=== PATIENT | male | born 1950 | race Caucasian/White ===

== ENCOUNTER → 2017-03-07 | Outpatient (CLI) | payer MEDICARE, BC ==
[2017-03-07 08:03] LABS: Non-African American GFR(MDRD) >60 (>60 ml/min/1.73 sqM)
== END | disposition home or self-care (01) ==
LOC: LABWHC1 07:09
PROVIDERS: ATTEND Internal Medicine
DX: Z01.812 Encounter for preprocedural laboratory examination (principal); M54.5 Low back pain
CPT/HCPCS: 36415; 82565

== ENCOUNTER → 2017-03-10 | Outpatient (CLI) | payer MEDICARE, BC ==
--- NOTE | 2017-03-10 09:24 | MR ---
EXAMINATION TYPE: MR lumbar spine wo/w con DATE OF EXAM: 03/10/2017 COMPARISON: Prior MRI lumbar spine May 13, 2014 HISTORY: Low back pain per order. Back pain for a long time causing pain into bilateral buttocks and left calf per patient. History of prior surgery November 21, 2014 per patient. TECHNIQUE: Multiplanar, multisequence images of the lumbar spine is performed without and with IV contrast, util izing 20 mL intravenous MultiHance FINDINGS: Sagittal images of the lumbar spine show vertebral body heights and alignment to appear sat isfactory. There is redemonstration of artifact from extensive multilevel surgical change with clockmaker ior fusion hardware noted L2-L5 levels. Multilevel laminectomy defects and spinous process resection is present. There is additional vertebral fusion hardware L3 and L4 levels. There is artifact from di sc material L2-L3, L3-L4, and L4-L5 levels now present. Vertebral body heights and disc space heights above and below surgical levels are felt maintained. Small posterior disc herniations are seen at L 1-L2 and L5-S1 levels on current study. The conus medullaris remains normal in position and signal en ding at T12-L1 disc space level. There is marked heterogeneity of bone marrow signal intensity is freda gical levels. No suspicious postcontrast enhancement is seen. There is fairly moderate anterior spurr ing at surgical levels redemonstrated. Axial images show the T12-L1 level to remain within normal limits. Axial images at the L1-L2 level show artifact from surgical change. There is persistent moderate broa d disc bulge effacing anterior thecal sac. There is asymmetric mild left greater than right neural fo raminal narrowing redemonstrated. No significant change from prior study is seen. Less artifact is no jaime. Axial images at L2-L3, L3-L4, and L4-L5 level show extensive artifact from surgical change. Spinal ca nal is distorted but likely preserved. Bilateral neural foramina are felt patent though there is connor fact degradation present. Axial images at L5-S1 level show artifact from surgical change. There is small central disc protrusio n but spinal canal is preserved. Bilateral neural foramina are felt patent. There is redemonstration of 1.4 cm T1 hyperintense T2 hypointense exophytic round lesion upper pole l evel left kidney up to reflect proteinaceous cyst on axial image 32. IMPRESSION: Suboptimal study due to marked artifact from extensive surgical change. There is satisfac tory alignment redemonstrated. There are some mild degenerative changes L1-L2 and L5-S1 levels redemo nstrated. No significant or suspicious new findings are seen.
== END | disposition home or self-care (01) ==
LOC: RADMRIMAIN 06:34
PROVIDERS: ATTEND Internal Medicine
DX: M47.817 Spondylosis without myelopathy or radiculopathy, lumbosacral region (principal); Z98.890 Other specified postprocedural states
CPT/HCPCS: 72158; A9577

== ENCOUNTER → 2018-03-12 | Outpatient (CLI) | payer MEDICARE, BC ==
[2018-03-12 11:27] LABS: Basophils # (A) 0.1 k/uL (0-0.2); Basophils % (A) 1 %; Eosinophils # (A) 0.2 k/uL (0-0.7); Eosinophils % (A) 2 %; HGB 13.6 gm/dL (13.0-17.5); Lymphocytes % (A) 22 %; MCH 31.5 pg (25.0-35.0); MCHC 32.4 g/dL (31.0-37.0); MCV 97.4 fL (80.0-100.0); Mean Platelet Volume 7.7; Monocytes # (A) 0.6 k/uL (0-1.0); Monocytes % (A) 6 %; Neutrophils # (A) 6.2 k/uL (1.3-7.7); Neutrophils % (A) 66 %; Platelet Count 235 k/uL (150-450); RBC 4.32 m/uL (4.30-5.90); RDW 12.9 % (11.5-15.5); WBC 8.6 k/uL (3.8-10.6)
== END | disposition home or self-care (01) ==
LOC: LABWHC1 09:18
PROVIDERS: ATTEND Psychiatry & Neurology Pain Medicine
DX: S31.109A Unspecified open wound of abdominal wall, unspecified quadrant without penetration into peritoneal cavity, initial encounter (principal)
CPT/HCPCS: 36415; 85025; 87070; 87205

== ENCOUNTER → 2018-04-01 | Outpatient (CLI) | payer MEDICARE, BC ==
[2018-04-01 08:34] LABS: Basophils # (A) 0.1 k/uL (0-0.2); Basophils % (A) 1 %; Eosinophils # (A) 0.2 k/uL (0-0.7); Eosinophils % (A) 3 %; HCT 41.7 % (39.0-53.0); HGB 13.1 gm/dL (13.0-17.5); Hypochromasia Slight; Lymphocytes # (A) 1.7 k/uL (1.0-4.8); Lymphocytes % (A) 24 %; MCHC 31.5 g/dL (31.0-37.0); MCV 101.8 fL (80.0-100.0); Macrocytosis Slight; Mean Platelet Volume 6.7; Monocytes # (A) 0.5 k/uL (0-1.0); Monocytes % (A) 7 %; Neutrophils # (A) 4.6 k/uL (1.3-7.7); Neutrophils % (A) 63 %; Platelet Count 183 k/uL (150-450); RDW 12.7 % (11.5-15.5); WBC 7.3 k/uL (3.8-10.6)
== END | disposition home or self-care (01) ==
LOC: LABWHC1 07:43
PROVIDERS: ATTEND Psychiatry & Neurology Pain Medicine
DX: S31.109A Unspecified open wound of abdominal wall, unspecified quadrant without penetration into peritoneal cavity, initial encounter (principal)
CPT/HCPCS: 36415; 85025

== ENCOUNTER 2018-05-19 08:29 | Inpatient (IN) | payer MEDICARE, BC ==
--- NOTE | 2018-05-19 09:27 | ED ---
General Adult HPI - General Chief complaint: Shortness of Breath Stated complaint: chest pain,cough Source: patient Mode of arrival: wheelchair Limitations: no limitations - History of Present Illness Initial comments: Dictation was produced using blogfoster dictation software. please excuse any grammatical, word or spelling errors. Chief Complaint: 67-year-old male past medical history coronary artery disease, COPD, CVA presents with difficulty in breathing. History of Present Illness: Patient is 67-year-old male with past medical history of COPD. Patient continues to smoke cigarettes. He is told that he should come to the emergency department to be admitted. Says primary care physician's office 1 cm hypoxic and febrile. Patient states he's been feeling sick for about a week. Patient reports coughing. Feels more short of breath than usual. Since that he's been producing more sputum. Patient also feeling more malaise recently. No nausea vomiting, no abdominal pain. The ROS documented in this emergency department record has been reviewed and confirmed by me. Those systems with pertinent positive or negative responses have been documented in the HPI. All other systems are other negative and/or noncontributory. - Related Data Home Medications Medication Instructions Recorded Confirmed Albuterol Sulfate [Proventil Hfa] 2 puff INHALATION RT-Q6H PRN 12/01/15 05/19/18 Atenolol [Tenormin] 50 mg PO BID 12/01/15 05/19/18 Budesonide-Formot 160-4.5 Mcg 2 puff INHALATION RT-BID PRN 12/01/15 05/19/18 [Symbicort 160-4.5 Mcg Inhaler] HYDROcodone/APAP 10-325MG [[place] 1 tab PO Q6H PRN 12/01/15 05/19/18 10-325] amLODIPine [Norvasc] 5 mg PO DAILY 12/01/15 05/19/18 Albuterol Nebulized [Ventolin 2.5 mg INHALATION RT-Q6H 06/25/16 05/19/18 Nebulized] Niacin 500 mg PO DAILY 06/25/16 05/19/18 Omeprazole [PriLOSEC] 20 mg PO BID 06/25/16 05/19/18 Cyclobenzaprine [Flexeril] 10 mg PO TID 05/19/18 05/19/18 Gabapentin [Neurontin] 400 mg PO QID 05/19/18 05/19/18 Multivitamins, Thera [Multivitamin 1 tab PO DAILY 05/19/18 05/19/18 (formulary)] Naproxen 500 mg PO BID PRN 05/19/18 05/19/18 Simvastatin [Zocor] 40 mg PO HS 05/19/18 05/19/18 Tamsulosin HCl [Flomax] 0.4 mg PO HS 05/19/18 05/19/18 Previous Rx's Medication Instructions Recorded Ipratropium Nebulized [Atrovent 0.5 mg INHALATION RT-Q6H #0 06/26/16 Nebulized] Allergies Allergy/AdvReac Type Severity Reaction Status Date / Time montelukast sodium Allergy Itching Verified 05/19/18 09:14 [From [facility]] Review of Systems ROS Statement: Those systems with pertinent positive or pertinent negative responses have been documented in the HPI. ROS Other: All systems not noted in ROS Statement are negative. 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 History of Any Multi-Drug Resistant Organisms: None Reported Past Surgical History: Adenoidectomy, Back Surgery, Heart Catheterization, Hernia Repair, Joint Replacement, Orthopedic Surgery, Tonsillectomy Additional Past Surgical History / Comment(s): L knee replacement, back surgery x2-failed fusion and 2 rods in lower back, L/R cataract surgery, bilat. rib removal (cervical), carpal tunnel R wrist, colonoscopy, L elbow surgery, abdominal hernia repair, 3 R inguinal hernia repairs, L inguinal hernia repair, rectal cystectomy. Past Anesthesia/Blood Transfusion Reactions: Previous Problems w/ Anesthesia Additional Past Anesthesia/Blood Transfusion Reaction / Comment(s): With first surgery became belligerent when waking up. Past Psychological History: No Psychological Hx Reported Smoking Status: Current every day smoker Past Alcohol Use History: Rare Past Drug Use History: None Reported - Past Family History Mother Family Medical History: No Reported History Additional Family Medical History / Comment(s): Mother was healthy and lived to be 88 or 89yrs old. Father Family Medical History: Cancer Additional Family Medical History / Comment(s): Father of lung cancer in his early 70's. General Exam - General Exam Comments Initial Comments: PHYSICAL EXAM: General Impression: Alert and oriented x3, dyspneic, HEENT: Normocephalic atraumatic, extra-ocular movements intact, pupils equal and reactive to light bilaterally, mucous membranes moist. Cardiovascular: Heart regular rate and rhythm, S1&S2 audible, no murmurs, rubs or gallops Chest: Bilateral lung wheezing Abdomen: Bowel sounds present, abdomen soft, non-tender, non-distended, no organomegaly Musculoskeletal: Pulses present and equal in all extremities, no peripheral edema Motor: Power 5/5 bilaterally, no focal deficits noted Neurological: CN II-XII grossly intact, no focal motor or sensory deficits noted Skin: Intact with no visualized rashes Psych: Normal affect and mood Limitations: no limitations Course Vital Signs 05/19/18 05/19/18 05/19/18 08:39 09:17 09:33 Temperature 98.6 F Pulse Rate 70 Respiratory 20 25 H Rate Blood Pressure 104/51 O2 Sat by Pulse 80 L 88 L Oximetry 05/19/18 05/19/18 05/19/18 10:00 11:00 11:46 Temperature Pulse Rate 67 62 70 Respiratory Rate Blood Pressure 98/49 98/49 O2 Sat by Pulse 91 L 84 L Oximetry 05/19/18 11:57 Temperature Pulse Rate 70 Respiratory Rate Blood Pressure O2 Sat by Pulse Oximetry Medical Decision Making - Medical Decision Making ED course: 77-year-old male with past medical history of COPD presents with instruction from primary care physician to come to the emergency Department for hypoxia and possible lung infection. As upon arrival shows oxygen of 80% on room air. Rest of vital signs within normal limits. Patient doesn't have any lower extremity symptoms. Low clinical suspicion of pulmonary embolus at this time.Laboratory evaluation obtained per it CBC unremarkable, coag panel unremarkable. Metabolic panel is negative. Cardiac enzymes are negative. X-ray was obtained showing COPD with venous congestion versus interstitial pneumonitis. Clinical presentation more suggestive of COPD exacerbation secondary to pulmonary infection. Patient be admitted for COPD exacerbation is given breathing treatment, corticosteroids and antibiotics. Patient be admitted to the hospital for hypoxic respiratory failure. EKG Interpretation: A 12 lead EKG was obtained. It was interpreted by myself and attending physician. There is a P wave before every QRS complex. Rate is 67. Rhythm is normal sinus rhythm, SC interval 170, QRS 100, QTC 433. QT is not prolonged. No ST segment depression or elevation. Overall, this EKG is unremarkable - Lab Data Result diagrams: 05/19/18 09:11 05/19/18 09:11 Lab Results 05/19/18 05/19/18 05/19/18 Range/Units 09:11 09:11 09:11 WBC 4.8 (3.8-10.6) k/uL RBC 4.49 (4.30-5.90) m/uL Hgb 13.8 (13.0-17.5) gm/dL Hct 43.1 (39.0-53.0) % MCV 96.0 D (80.0-100.0) fL MCH 30.7 (25.0-35.0) pg MCHC 32.0 (31.0-37.0) g/dL RDW 13.2 (11.5-15.5) % Plt Count 142 L (150-450) k/uL Neutrophils % 78 % Lymphocytes % 12 % Monocytes % 7 % Eosinophils % 1 % Basophils % 1 % Neutrophils # 3.8 (1.3-7.7) k/uL Lymphocytes # 0.6 L (1.0-4.8) k/uL Monocytes # 0.3 (0-1.0) k/uL Eosinophils # 0.0 (0-0.7) k/uL Basophils # 0.0 (0-0.2) k/uL PT (9.0-12.0) sec INR (<1.2) APTT (22.0-30.0) sec Sodium 134 L (137-145) mmol/L Potassium 4.6 (3.5-5.1) mmol/L Chloride 96 L (98-107) mmol/L Carbon Dioxide 28 (22-30) mmol/L Anion Gap 10 mmol/L BUN 14 (9-20) mg/dL Creatinine 0.90 (0.66-1.25) mg/dL Est GFR (CKD-EPI)AfAm >90 (>60 ml/min/1.73 sqM) Est GFR (CKD-EPI)NonAf 87 (>60 ml/min/1.73 sqM) Glucose 90 (74-99) mg/dL Calcium 9.0 (8.4-10.2) mg/dL Magnesium 1.9 (1.6-2.3) mg/dL Total Bilirubin 0.5 (0.2-1.3) mg/dL AST 46 (17-59) U/L ALT 21 (21-72) U/L Alkaline Phosphatase 80 (38-126) U/L Total Creatine Kinase 129 (55-170) U/L CK-MB (CK-2) 1.5 (0.0-2.4) ng/mL CK-MB (CK-2) Rel Index 1.2 Troponin I <0.012 (0.000-0.034) ng/mL NT-Pro-B Natriuret Pep pg/mL Total Protein 6.6 (6.3-8.2) g/dL Albumin 3.5 (3.5-5.0) g/dL 05/19/18 05/19/18 Range/Units 09:11 09:11 WBC (3.8-10.6) k/uL RBC (4.30-5.90) m/uL Hgb (13.0-17.5) gm/dL Hct (39.0-53.0) % MCV (80.0-100.0) fL MCH (25.0-35.0) pg MCHC (31.0-37.0) g/dL RDW (11.5-15.5) % Plt Count (150-450) k/uL Neutrophils % % Lymphocytes % % Monocytes % % Eosinophils % % Basophils % % Neutrophils # (1.3-7.7) k/uL Lymphocytes # (1.0-4.8) k/uL Monocytes # (0-1.0) k/uL Eosinophils # (0-0.7) k/uL Basophils # (0-0.2) k/uL PT 10.1 (9.0-12.0) sec INR 1.0 (<1.2) APTT 27.6 (22.0-30.0) sec Sodium (137-145) mmol/L Potassium (3.5-5.1) mmol/L Chloride (98-107) mmol/L Carbon Dioxide (22-30) mmol/L Anion Gap mmol/L BUN (9-20) mg/dL Creatinine (0.66-1.25) mg/dL Est GFR (CKD-EPI)AfAm (>60 ml/min/1.73 sqM) Est GFR (CKD-EPI)NonAf (>60 ml/min/1.73 sqM) Glucose (74-99) mg/dL Calcium (8.4-10.2) mg/dL Magnesium (1.6-2.3) mg/dL Total Bilirubin (0.2-1.3) mg/dL AST (17-59) U/L ALT (21-72) U/L Alkaline Phosphatase (38-126) U/L Total Creatine Kinase (55-170) U/L CK-MB (CK-2) (0.0-2.4) ng/mL CK-MB (CK-2) Rel Index Troponin I (0.000-0.034) ng/mL NT-Pro-B Natriuret Pep 537 pg/mL Total Protein (6.3-8.2) g/dL Albumin (3.5-5.0) g/dL Disposition Clinical Impression: COPD exacerbation, Hypoxia Disposition: ADMITTED IP TO THIS HOSP Condition: Fair Referrals: David Suazo MD [Primary Care Provider] - 1-2 days Decision Time: 12:46
[2018-05-19] MEDS ORDERED: IPRATROPIUM 0.5 MG/2.5 ML NEBU INHALATION STA (09:28)
[2018-05-19] MEDS ORDERED: ALBUTEROL NEBULIZED 2.5 MG/3 ML INHALATION STA ×2 (09:28→11:45)
[2018-05-19] MEDS ORDERED: methylPREDNISolone SOD SUCCI 125 MG/2 ML VIAL IV STA (09:28)
[2018-05-19] MEDS ORDERED: AZITHROMYCIN 500 MG in SODIUM CHLORIDE 0.9% 250 ML IVPB STA (09:28)
[2018-05-19 09:50] LABS: Basophils % (A) 1 %; Eosinophils % (A) 1 %; HCT 43.1 % (39.0-53.0); HGB 13.8 gm/dL (13.0-17.5); Lymphocytes # (A) 0.6 k/uL (1.0-4.8); Lymphocytes % (A) 12 %; MCH 30.7 pg (25.0-35.0); Mean Platelet Volume 7.7; Monocytes # (A) 0.3 k/uL (0-1.0); Monocytes % (A) 7 %; Neutrophils # (A) 3.8 k/uL (1.3-7.7); Neutrophils % (A) 78 %; Platelet Count 142 k/uL (150-450); RBC 4.49 m/uL (4.30-5.90); RDW 13.2 % (11.5-15.5); WBC 4.8 k/uL (3.8-10.6)
[2018-05-19 09:58] LABS: Partial Thromboplastin Time 27.6 sec (22.0-30.0); Prothrombin Time 10.1 sec (9.0-12.0)
[2018-05-19 10:15] LABS: ALT 21 U/L (21-72); AST 46 U/L (17-59); Albumin 3.5 g/dL (3.5-5.0); Alkaline Phosphatase 80 U/L (38-126); Anion Gap 10 mmol/L; Blood Urea Nitrogen 14 mg/dL (9-20); Carbon Dioxide 28 mmol/L (22-30); Chloride 96 mmol/L (98-107); Glucose 90 mg/dL (74-99); Magnesium 1.9 mg/dL (1.6-2.3); Sodium 134 mmol/L (137-145); Total Bilirubin 0.5 mg/dL (0.2-1.3); Total Protein 6.6 g/dL (6.3-8.2)
[2018-05-19 10:16] LABS: Creatine Kinase 129 U/L (55-170)
[2018-05-19 10:30] LABS: Creatine Kinase MB 1.5 ng/mL (0.0-2.4); Troponin I <0.012 ng/mL (0.000-0.034)
[2018-05-19 10:43] LABS: Potassium 4.6 mmol/L (3.5-5.1)
--- NOTE | 2018-05-19 12:25 | XR ---
EXAMINATION TYPE: XR chest 2V DATE OF EXAM: 05/19/2018 COMPARISON: 06/25/2016 TECHNIQUE: PA and lateral views submitted. HISTORY: Difficulty breathing FINDINGS: The lungs are clear and there is no pneumothorax, pleural effusion, or focal pneumonia. Diffuse int erstitial pattern seen. There does appear to be a vague nodule measuring 1 cm in the left upper lobe. Biapical pleural thickening. Heart is enlarged and there is atherosclerotic change of the aorta. Hyp erinflation suggests COPD. Hypertrophic and degenerative change of the spine. IMPRESSION: 1. COPD with increased interstitium correlate for developing venous congestion or interstitial pneumo nitis. 2. There is a 1 cm nodule left upper lobe. CT chest recommended.
[2018-05-19] MEDS ORDERED: IPRATROPIUM-ALBUTEROL 3 ML NEB INHALATION PRN (12:47)
[2018-05-19] MEDS ORDERED: CYCLOBENZAPRINE 10 MG TAB PO PRN (13:17)
[2018-05-19] MEDS ORDERED: SYMBICORT 160-4.5 MCG INHALER INHALATION PRN (13:17)
[2018-05-19] MEDS ORDERED: ACETAMINOPHEN TAB 325 MG TAB PO PRN (13:18)
[2018-05-19] MEDS ORDERED: ONDANSETRON 4 MG/2 ML VIAL IVP PRN (13:18)
--- NOTE | 2018-05-19 14:07 | P.HPIM ---
History of Present Illness H&P Date: 05/19/18 Chief Complaint: Shortness of breath This is a 67-year-old male with past medical history noted below significant for underlying COPD and who is a current smoker that presented to the emergency room with worsening shortness of breath. Patient said that for the past 1 week he has been more short of breath. This was associated with some wheezing that did not resolve by using his inhalers at home. Patient said that initially he was having a lot of cough that was productive of clear and yellow sputum. He said that the cough is nonproductive. He was evaluated by his PCP in the office today and was sent to the emergency room. Patient was found to have an oxygen saturation level of 80% on room air. Patient said that he was never on home oxygen before. He was evaluated in the emergency room chest x-ray showed evidence of underlying COPD with a 1 cm nodule in the left upper lobe. Patient is currently awake and alert. He said that his shortness of breath has improved since presentation to the emergency room. Patient was treated with bronchodilators and steroids and is currently being admitted to the hospital for further evaluation. Patient himself denies any chest pain or dizziness. Review of Systems Review of system: 14 points review of systems were obtained and were negative except to what were mentioned in the HPI. 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 History of Any Multi-Drug Resistant Organisms: None Reported Past Surgical History: Adenoidectomy, Back Surgery, Heart Catheterization, Hernia Repair, Joint Replacement, Orthopedic Surgery, Tonsillectomy Additional Past Surgical History / Comment(s): L knee replacement, back surgery x2-failed fusion and 2 rods in lower back, L/R cataract surgery, bilat. rib removal (cervical), carpal tunnel R wrist, colonoscopy, L elbow surgery, abdominal hernia repair, 3 R inguinal hernia repairs, L inguinal hernia repair, rectal cystectomy. Past Anesthesia/Blood Transfusion Reactions: Previous Problems w/ Anesthesia Additional Past Anesthesia/Blood Transfusion Reaction / Comment(s): With first surgery became belligerent when waking up. Past Psychological History: No Psychological Hx Reported Smoking Status: Current every day smoker Past Alcohol Use History: Rare Past Drug Use History: None Reported - Past Family History Mother Family Medical History: No Reported History Additional Family Medical History / Comment(s): Mother was healthy and lived to be 88 or 89yrs old. Father Family Medical History: Cancer Additional Family Medical History / Comment(s): Father of lung cancer in his early 70's. Medications and Allergies Home Medications Medication Instructions Recorded Confirmed Type Albuterol Sulfate [Proventil Hfa] 2 puff INHALATION RT-Q6H PRN 12/01/15 History Atenolol [Tenormin] 50 mg PO BID 12/01/15 05/19/18 History Budesonide-Formot 160-4.5 Mcg 2 puff INHALATION RT-BID PRN 12/01/15 05/19/18 History [Symbicort 160-4.5 Mcg Inhaler] HYDROcodone/APAP 10-325MG [[place] 1 tab PO Q6H PRN 12/01/15 05/19/18 History 10-325] amLODIPine [Norvasc] 5 mg PO DAILY 12/01/15 05/19/18 History Albuterol Nebulized [Ventolin 2.5 mg INHALATION RT-Q6H 06/25/16 05/19/18 History Nebulized] Niacin 500 mg PO DAILY 06/25/16 05/19/18 History Omeprazole [PriLOSEC] 20 mg PO BID 06/25/16 05/19/18 History Ipratropium Nebulized [Atrovent 0.5 mg INHALATION RT-Q6H #0 06/26/16 05/19/18 Rx Nebulized] Cyclobenzaprine [Flexeril] 10 mg PO TID 05/19/18 05/19/18 History Gabapentin [Neurontin] 400 mg PO QID 05/19/18 05/19/18 History Multivitamins, Thera [Multivitamin 1 tab PO DAILY 05/19/18 05/19/18 History (formulary)] Naproxen 500 mg PO BID PRN 05/19/18 05/19/18 History Simvastatin [Zocor] 40 mg PO HS 05/19/18 05/19/18 History Tamsulosin HCl [Flomax] 0.4 mg PO HS 05/19/18 05/19/18 History Allergies Allergy/AdvReac Type Severity Reaction Status Date / Time montelukast sodium Allergy Itching Verified 05/19/18 09:14 [From [facility]] Physical Exam Vitals: Vital Signs Temp Pulse Resp BP Pulse Ox 05/19/18 14:00 120/51 88 L 05/19/18 13:00 116/57 05/19/18 12:00 68 118/59 84 L 05/19/18 11:57 70 05/19/18 11:46 70 05/19/18 11:00 62 98/49 84 L 05/19/18 10:00 67 98/49 91 L 05/19/18 09:33 25 H 05/19/18 09:17 88 L 05/19/18 08:39 98.6 F 70 20 104/51 80 L Intake and Output 05/18/18 05/19/18 05/19/18 22:59 06:59 14:59 Other: Weight 93.894 kg General: The patient is awake and alert, in no distress Eye: there is normal conjunctiva bilaterally. Neck: The neck is supple, there is no JVD. Cardiovascular: Normal S1-S2, no S3-S4, no murmurs. Respiratory: Lungs are diminished with mild end expiratory wheezing Gastrointestinal: Abdomen is soft, nontender, slightly distended Musculoskeletal: There is no pedal edema. Neurological:. Speech is normal. Skin: Skin is warm and dry Results CBC & Chem 7: 05/19/18 09:11 05/19/18 09:11 Labs: Abnormal Lab Results - Last 24 Hours (Table) 05/19/18 05/19/18 Range/Units 09:11 09:11 Plt Count 142 L (150-450) k/uL Lymphocytes # 0.6 L (1.0-4.8) k/uL Sodium 134 L (137-145) mmol/L Chloride 96 L (98-107) mmol/L Assessment and Plan Assessment: 1. Acute COPD exacerbation 2. 1 cm nodule in the left upper lobe of the lung 3. Acute bacterial bronchitis 4. Acute hypoxic respiratory failure 5. Essential hypertension 6. Hyperlipidemia 7. History of back surgery with chronic back pain 8. Tobacco abuse, counseled to quit. Today, I reviewed his medication list and lab work results. We will continue prednisone 40 mg daily. Continue bronchodilators around the clock and when necessary. Azithromycin 500 mg daily for 5 days. I would consult pulmonology for further evaluation. I will order incentive spirometer at bedside. Subcu heparin for DVT prophylaxis. Patient was updated about his current condition. All of his questions answered to his satisfaction.
[2018-05-19] MEDS: IPRATROPIUM-ALBUTEROL 3 ML NEB INHALATION SCH (16:19)
[2018-05-19] MEDS: GABAPENTIN 400 MG CAP PO SCH ×2 (18:22→20:36)
[2018-05-19] MEDS: PANTOPRAZOLE 40 MG TABLET PO SCH (18:22)
[2018-05-19] MEDS: HYDROcodone/APAP 10-325MG 1 EACH TAB PO PRN (19:34)
[2018-05-19] MEDS: TAMSULOSIN 0.4 MG CAP.ER.24H PO SCH (20:36)
[2018-05-19] MEDS: ATORVASTATIN 20 MG TAB PO SCH (20:36)
[2018-05-19] MEDS: ATENOLOL 50 MG TAB PO SCH (20:36)
[2018-05-19] MEDS: HEPARIN SODIUM,PORCINE 5,000 UNIT/ML 1 ML VIAL SQ SCH ×2 (20:36→20:38)
[2018-05-19] MEDS: SODIUM CHLORIDE 0.9% 1,000 ML IV SCH (20:39)
[2018-05-20] MEDS: IPRATROPIUM-ALBUTEROL 3 ML NEB INHALATION SCH ×5 (00:17→21:09)
[2018-05-20] MEDS: HYDROcodone/APAP 10-325MG 1 EACH TAB PO PRN ×3 (05:17→21:00)
[2018-05-20] MEDS ORDERED: predniSONE 20 MG TAB PO SCH (09:00)
[2018-05-20] MEDS: HEPARIN SODIUM,PORCINE 5,000 UNIT/ML 1 ML VIAL SQ SCH ×2 (09:10→21:00)
[2018-05-20] MEDS: GABAPENTIN 400 MG CAP PO SCH ×4 (09:10→21:00)
[2018-05-20] MEDS: PANTOPRAZOLE 40 MG TABLET PO SCH ×2 (09:10→17:54)
[2018-05-20] MEDS: ATENOLOL 50 MG TAB PO SCH ×2 (09:10→21:00)
[2018-05-20] MEDS: amLODIPine 5 MG TAB PO SCH (09:10)
[2018-05-20] MEDS: AZITHROMYCIN 500 MG TAB PO SCH (09:10)
--- NOTE | 2018-05-20 09:27 | P.PN ---
Subjective Progress Note Date: 05/20/18 Principal diagnosis: COPD exacerbation Patient is feeling slightly better today. His shortness of breath is improving. He is concerned as he was supposed to follow up with the wound care clinic today regarding chronic wound involving the left lower abdomen where the incision site for the morphine pump was done. Patient said that he received multiple antibiotic courses over the past 3 months. This was managed by his neurologist. He was referred to the wound care clinic and was supposed to have his first appointment today. Objective - Vital Signs Vital signs: Vital Signs Temp 97.4 F L 05/20/18 07:00 Pulse 64 05/20/18 09:04 Resp 17 05/20/18 07:00 BP 115/47 05/20/18 07:00 Pulse Ox 95 05/20/18 07:00 Intake & Output 05/19/18 05/20/18 05/20/18 18:59 06:59 18:59 Intake Total 400 Balance 400 Weight 93.894 kg 93.894 kg Intake: IV 40 0.9 @ 40 40 Intake, IV Titration 360 Amount Sodium Chloride 0.9% 1, 360 000 ml @ 40 mls/hr IV . Q24H [facility] Rx#:[id number] Other: # Voids 3 - Exam General: The patient is awake and alert, in no distress Eye: there is normal conjunctiva bilaterally. Neck: The neck is supple, there is no JVD. Cardiovascular: Normal S1-S2, no S3-S4, no murmurs. Respiratory: Lungs clear to auscultation bilaterally Gastrointestinal: Abdomen is soft, nontender. Morphine pump noted in the left lower abdomen with the incision site and surrounding erythema. There is no drainage or pus noted. There is no tenderness over the pump. Musculoskeletal: There is no pedal edema. Neurological:. Speech is normal. Skin: Skin is warm and dry - Labs CBC & Chem 7: 05/19/18 09:11 05/19/18 09:11 Labs: Abnormal Lab Results - Last 24 Hours (Table) 05/19/18 05/19/18 Range/Units 09:11 09:11 Plt Count 142 L (150-450) k/uL Lymphocytes # 0.6 L (1.0-4.8) k/uL Sodium 134 L (137-145) mmol/L Chloride 96 L (98-107) mmol/L Assessment and Plan Assessment: 1. Acute COPD exacerbation 2. 1 cm nodule in the left upper lobe of the lung: May consider further evaluation with computed tomography scan awaiting pulmonology recommendations 3. Acute bacterial bronchitis 4. Acute hypoxic respiratory failure 5. Essential hypertension 6. Hyperlipidemia 7. History of back surgery with chronic back pain 8. Tobacco abuse, counseled to quit. 9. Chronic wound of the left lower abdomen at the morphine pump incision sites. I would consult Dr. Saldana for further evaluation as patient was supposed to be seen in the wound care clinic today. Today, I reviewed his medication list and lab work results. We will continue prednisone 40 mg daily. Continue bronchodilators around the clock and when necessary. Azithromycin 500 mg daily for 5 days. Appreciate training consultant's recommendations. I will order incentive spirometer at bedside. Subcu heparin for DVT prophylaxis. Patient was updated about his current condition. All of his questions answered to his satisfaction.
[2018-05-20 10:07] LABS: Basophils % (A) 0 %; Eosinophils % (A) 0 %; HGB 13.9 gm/dL (13.0-17.5); Hypochromasia Slight; Lymphocytes # (A) 0.5 k/uL (1.0-4.8); Lymphocytes % (A) 9 %; MCH 30.4 pg (25.0-35.0); MCHC 30.9 g/dL (31.0-37.0); MCV 98.4 fL (80.0-100.0); Mean Platelet Volume 6.9; Monocytes # (A) 0.3 k/uL (0-1.0); Monocytes % (A) 5 %; Neutrophils # (A) 4.3 k/uL (1.3-7.7); Neutrophils % (A) 84 %; Platelet Count 146 k/uL (150-450); RBC 4.57 m/uL (4.30-5.90); WBC 5.1 k/uL (3.8-10.6)
[2018-05-20 10:39] LABS: Anion Gap 9 mmol/L; Blood Urea Nitrogen 16 mg/dL (9-20); Calcium 9.1 mg/dL (8.4-10.2); Carbon Dioxide 30 mmol/L (22-30); Chloride 98 mmol/L (98-107); Glucose 130 mg/dL (74-99); Potassium 5.1 mmol/L (3.5-5.1); Sodium 137 mmol/L (137-145)
--- NOTE | 2018-05-20 14:17 | P.CNPUL ---
History of Present Illness Consult date: 05/20/18 Reason for consult: dyspnea, cough, COPD, hypoxemia, lung mass, abnormal CXR/CT Chief complaint: Shortness of breath, COPD exacerbation History of present illness: Pulmonary consult dated 05/20/2018 This is a 67-year-old male with a history of CAD COPD CVA. The patient apparently presented to the emergency department May 19 with complaints of increasing shortness of breath. He still smoking cigarettes. The patient was complaining of chest tightness wheezing cough. Coughing up some phlegm. No fever or chills. No nausea vomiting or diarrhea. Chest x-ray showed only changes of COPD. In addition, there was apparently a small nodule in the left upper lobe. He is coughing up some phlegm. The fundus typically either white or slightly yellow. He's not coughing up any blood. There is no chest pain or chest pressure. I see him in the office for her COPD. His primary care physician is Dr. David Suazo. Today I counseled about the importance of smoking cessation. In talking to him about this for many many years. He does understand that he'll continue to lose lung function. He's got quite severe disease already. His past medical history is positive for CAD, COPD, CVA, GERD , hyperlipidemia, hypertension, DJD, BPH, vertigo, tinnitus, and a multitude of other medical problems and comorbidities. Review of Systems A 14 point review of system is positive for shortness of breath chest tightness wheezing cough and phlegm production. The phlegm is either slightly yellow or white. He does not cough up any blood. His been no fever or chills. 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 History of Any Multi-Drug Resistant Organisms: None Reported Past Surgical History: Adenoidectomy, Back Surgery, Heart Catheterization, Hernia Repair, Joint Replacement, Orthopedic Surgery, Tonsillectomy Additional Past Surgical History / Comment(s): L knee replacement, back surgery x2-failed fusion and 2 rods in lower back, L/R cataract surgery, bilat. rib removal (cervical), carpal tunnel R wrist, colonoscopy, L elbow surgery, abdominal hernia repair, 3 R inguinal hernia repairs, L inguinal hernia repair, rectal cystectomy.pain pump(ms) implanted -2017 Past Anesthesia/Blood Transfusion Reactions: Previous Problems w/ Anesthesia Additional Past Anesthesia/Blood Transfusion Reaction / Comment(s): With first surgery became belligerent when waking up. Smoking Status: Current every day smoker - Past Family History Mother Family Medical History: No Reported History Additional Family Medical History / Comment(s): Mother was healthy and lived to be 88 or 89yrs old. Father Family Medical History: Cancer Additional Family Medical History / Comment(s): Father of lung cancer in his early 70's. Medications and Allergies Home Medications Medication Instructions Recorded Confirmed Type Albuterol Sulfate [Proventil Hfa] 2 puff INHALATION RT-Q6H PRN 12/01/15 History Atenolol [Tenormin] 50 mg PO BID 12/01/15 05/19/18 History Budesonide-Formot 160-4.5 Mcg 2 puff INHALATION RT-BID PRN 12/01/15 05/19/18 History [Symbicort 160-4.5 Mcg Inhaler] HYDROcodone/APAP 10-325MG [[place] 1 tab PO Q6H PRN 12/01/15 05/19/18 History 10-325] amLODIPine [Norvasc] 5 mg PO DAILY 12/01/15 05/19/18 History Albuterol Nebulized [Ventolin 2.5 mg INHALATION RT-Q6H 06/25/16 05/19/18 History Nebulized] Niacin 500 mg PO DAILY 06/25/16 05/19/18 History Omeprazole [PriLOSEC] 20 mg PO BID 06/25/16 05/19/18 History Ipratropium Nebulized [Atrovent 0.5 mg INHALATION RT-Q6H #0 06/26/16 05/19/18 Rx Nebulized] Cyclobenzaprine [Flexeril] 10 mg PO TID 05/19/18 05/19/18 History Gabapentin [Neurontin] 400 mg PO QID 05/19/18 05/19/18 History Multivitamins, Thera [Multivitamin 1 tab PO DAILY 05/19/18 05/19/18 History (formulary)] Naproxen 500 mg PO BID PRN 05/19/18 05/19/18 History Simvastatin [Zocor] 40 mg PO HS 05/19/18 05/19/18 History Tamsulosin HCl [Flomax] 0.4 mg PO HS 05/19/18 05/19/18 History Allergies Allergy/AdvReac Type Severity Reaction Status Date / Time montelukast sodium Allergy Itching Verified 05/19/18 09:14 [facility] Physical Exam Osteopathic Statement: *. No significant issues noted on an osteopathic structural exam other than those noted in the History and Physical/Consult. Vitals: Vital Signs Temp Pulse Pulse Pulse Resp BP Pulse Ox 05/20/18 12:11 64 05/20/18 12:01 60 05/20/18 09:04 64 05/20/18 08:55 62 05/20/18 07:00 97.4 F L 59 L 17 115/47 95 05/19/18 23:40 98.3 F 71 16 117/60 92 L 05/19/18 21:32 98.9 F 88 73 20 118/53 05/19/18 16:34 78 05/19/18 16:20 78 Intake and Output 05/19/18 05/20/18 05/20/18 22:59 06:59 14:59 Intake Total 160 240 Balance 160 240 Intake: IV 40 0.9 @ 40 40 Intake, IV Titration 120 240 Amount Sodium Chloride 0.9% 1, 120 240 000 ml @ 40 mls/hr IV . Q24H [facility] Rx#:[id number] Other: # Voids 3 Weight 93.894 kg No acute distress, oriented 3. No acute respiratory distress. No audible wheezing. No use of accessory muscles. HEENT examination is grossly unremarkable. Mucous membranes are moist. No oral lesions. Neck supple. Full range of motion. No adenopathy thyromegaly or neck vein distention. Cardiovascular examination reveals regular rhythm rate. S1-S2 normal. No S3 or S4. No discernible murmur noted. Lungs reveal coarse inspiratory and expiratory wheezes and rhonchi. Breath sounds are diminished throughout. There is prolongation on forced maneuver. No crackles appreciated. Breath sounds equal bilaterally. Abdomen is soft. Bowel sounds are noted. There is a slowly healing lesion in the left mid abdomen from where the pain stimulator was placed. Extremities are intact. No cyanosis clubbing or edema. Skin is without rash or lesion. Neurologic examination is brief but nonfocal. Results - Laboratory Findings CBC and BMP: 05/20/18 08:49 05/20/18 08:49 PT/INR, D-dimer PT 10.1 sec (9.0-12.0) 05/19/18 09:11 INR 1.0 (<1.2) 05/19/18 09:11 Abnormal lab findings: Abnormal Labs 05/19/18 05/19/18 05/20/18 09:11 09:11 08:49 MCHC 30.9 L Plt Count 142 L 146 L Lymphocytes # 0.6 L 0.5 L Sodium 134 L Chloride 96 L Glucose 05/20/18 08:49 MCHC Plt Count Lymphocytes # Sodium Chloride Glucose 130 H - Diagnostic Findings Chest x-ray: report reviewed, image reviewed (Labs, x-rays and medications are reviewed.) Assessment and Plan Assessment: Assessment COPD exacerbation compounded by purulent tracheobronchitis, without justina pneumonia Possible solitary pulmonary nodule, left upper lobe History of ongoing tobacco use with nicotine addiction History of CAD History of CVA Angina pectoris Gastroesophageal reflux disease Hyperlipidemia Hypertension DJD BPH Vertigo Plan: Plan dated 05/20/2018 We will look at the patient's medications and make sure the patient's on all the appropriate medications. Labs x-rays and medications are reviewed. We'll go ahead and order a CAT scan of the chest to evaluate the nodule on the left upper lobe. The patient's overall prognosis is guarded given the fact that he continues to smoke despite counseling. Today I talk to his and him about the smoking issue. He seems very resistant to the idea of smoking cessation. The patient will get a CAT scan of the chest. We'll make sure he is on short acting beta agonist, short acting muscarinic antagonist, long-acting beta agonist, inhaled corticosteroids, systemic corticosteroids, and antibiotics. Prognosis is guarded. Time with Patient: Greater than 30
[2018-05-20] MEDS ORDERED: RX INFO: IV CONTRAST WAS GIVEN 1 EACH MISC MISCELLANE PRN (14:24)
--- NOTE | 2018-05-20 15:43 | CT ---
EXAMINATION TYPE: CT chest w con DATE OF EXAM: 05/20/2018 COMPARISON: 10/07/2011 and radiograph 05/19/2018 HISTORY: 67-year-old male further evaluation for left upper lobe solitary pulmonary nodule TECHNIQUE: Contiguous axial scanning of the chest after the administration of 100 mL of Isovue 300. Coronal/sagittal reconstructions performed. CT DLP: 364.5 mGycm. Automatic exposure control utilized for a dose reduction. FINDINGS: Heart normal size without pericardial effusion. Coronary vessel calcifications are present and there are marker for coronary artery disease. Mild atherosclerotic arch calcifications with normal caliber aorta and conventional arch vessel branc gab anatomy. Mediastinal lymph nodes show slight increase in size from 2012 now measuring up to 1.0 cm and the pre carinal region versus 8 to 9 mm, previously. No additional thoracic lymphadenopathy by CT size criter ia. Diffuse interstitial and tree-in-bud opacities. Mild centrilobular emphysema. There is new 1 cm nodul arity marginating some emphysematous change in the left upper lobe, axial image 23. Tiny 4 mm satelli te nodule just adjacent was present previously and is benign. An 8 mm superior segment left lower lob e pulmonary nodule is also stable. Patchy opacity at the posterior right base is new. No pleural effusion. Visualized upper abdomen shows a stable 1.2 cm left adrenal nodule and moderate atherosclerotic calci fications and plaque within the upper abdominal aorta. Stable 1.3 cm cortical based hypodense lesion posterior upper pole left kidney suggestive of a cyst. Bones: Some posterior fusion hardware in the visualized lumbar spine, incompletely imaged. Bridging a nterior endplate spondylosis mid to lower thoracic spine suggesting DISH. IMPRESSION: 1. COPD with mild emphysema. An emphysematous cyst in the left upper lobe has a new 1 cm nodule along its margin. An early lung cancer is not excluded. Appropriate follow-up and workup recommended 2. Interstitial changes and extensive new diffuse tree-in-bud densities. Correlate to exclude bronchi olitis or atypical mycobacterial/fungal infections. Additional patchy atelectasis or airspace disease at the right base. 3. A 4 mm left midlung pulmonary nodule and 8 mm superior segment left lower lobe pulmonary nodules a re stable from 2012 and benign.
[2018-05-20 15:53] VITALS: BMI 29.7
[2018-05-20 17:13] LABS: Glucose,Whole Blood 174 mg/dL (75-99)
[2018-05-20] MEDS: methylPREDNISolone SOD SUCCI 125 MG/2 ML VIAL IV SCH ×2 (17:54→23:13)
[2018-05-20] MEDS: INSULIN ASPART 100 UNIT/ML 1 ML 10 ML VIAL SQ SCH ×2 (17:57→21:11)
[2018-05-20 20:46] LABS: Glucose,Whole Blood 171 mg/dL (75-99)
[2018-05-20] MEDS: SODIUM CHLORIDE 0.9% 1,000 ML IV SCH (20:55)
[2018-05-20] MEDS: TAMSULOSIN 0.4 MG CAP.ER.24H PO SCH (21:00)
[2018-05-20] MEDS: ATORVASTATIN 20 MG TAB PO SCH (21:00)
[2018-05-20] MEDS: BUDESONIDE 1 MG/2 ML NEBU INHALATION SCH (21:09)
[2018-05-20] MEDS: FORMOTEROL FUMARATE 20 MCG/2 ML NEBU INHALATION SCH (21:09)
--- NOTE | 2018-05-20 23:47 | CONS ---
CONSULTATION DATE OF SERVICE: 05/20/2018. REASON FOR CONSULTATION: 1. Left lower abdominal chronic wound. 2. Pneumonia. HISTORY OF PRESENT ILLNESS: The patient is a 67-year-old male who did have pain pump implantation in February of 2018. The patient did mention he did have a problem with healing of the surgical wound and he was supposed to be seen in the Wound Center today for evaluation of the same. The patient did not recall using any specific treatment or dressing to it. The wound is currently covered with scab. He did have some dull aching pain with radiation but no swelling, no redness or any drainage. The patient presented to the ER at [facility] yesterday with chief complaints of increasing shortness of breath that apparently has been getting worse for the last one week. The patient has been using his inhalers at home without any improvement. The patient did have a cough productive of some sputum, which is clear to yellow, but no hemoptysis. No chest pain. The patient was evaluated in the PCPs office. On the day of admission, he was noticed to be hypoxic with O2 sats of 80%. Subsequently has been evaluated by the ER physician. The patient did have a chest x-ray showing COPD with increased for developing interstitial pneumonitis. The patient has been afebrile and white count has been normal. The patient has been started on Zithromax. I was consulted for further recommendation. REVIEW OF SYSTEMS: CONSTITUTIONAL: Positive for weakness. No high grade fever. EYES: No complaint. ENT: No complaint. RESPIRATORY: As per HPI. CARDIOVASCULAR: No complaint. GENITOURINARY: No complaint. GASTROINTESTINAL: No complaint. MUSCULOSKELETAL: No complaint. INTEGUMENTARY: As per HPI. PSYCHOLOGICAL: No complaint. ENDOCRINE: No complaint. NEUROLOGICAL: No complaint. PAST MEDICAL HISTORY: Significant for coronary artery disease, COPD, CVA, TIA, , hypertension, hyperlipidemia, osteoarthritis, BPH. PAST SURGICAL HISTORY: Appendectomy, back surgery, heart catheterization, hernia repair, tonsillectomy, left knee replacement, back surgery x2, abdominal hernia repair. SOCIAL HISTORY: Current everyday smoker. Rarely drinks. No drug use. FAMILY HISTORY: Mother lived to . Father history of lung cancer and in 70s. ALLERGIES: MEDICATIONS: The patient is currently on Tylenol, [employer], DuoNeb, Norvasc, Tenormin, Lipitor, Zithromax, Pulmicort, Flexeril, Neurontin, heparin, NovoLog, Solu-Medrol, Zofran, Protonix, and Flomax. EXAMINATION: Blood pressure is 121/54 with a pulse of 91, temperature 98.2. He is 96% on 2 L nasal cannula. General description is an elderly male up in the bed in no distress. No tachypnea or accessory muscle of respiration use. HEENT: Shows no pallor or scleral icterus. Oral mucous membranes dry. No pharyngeal erythema or thrush. NECK: Trachea central. No thyromegaly. LUNGS: Unlabored breathing with decreased breath sounds in the base with some occasional wheeze. HEART: S1, S2. Regular rate and rhythm. ABDOMEN: Soft. Lower abdominal on the left side he did have a pain pump implantation site with a brain incision and did have a currently covered with scab. There is no evidence of any swelling, redness or any fluctuation. EXTREMITIES: No edema of feet. NEUROLOGIC: The patient is awake, alert, oriented . LABS: Hemoglobin is 13.8, white count 5.1 with a BUN of 16, creatinine 0.75. . Blood culture has been negative. DIAGNOSTIC IMPRESSION AND PLAN: 1. Patient with apparently nonhealing wound to the abdominal wall site of his pain pump implantation. However, the wound is currently closed and covered with scab with no evidence of any cellulitis. 2. The patient admitted to hospital with increasing shortness of breath with possible COPD exacerbation/tracheobronchitis. Clinical suspicion low for underlying pneumonia. The patient not running any fever and no elevated white count. PLAN: 1. The patient advised not to disturb the wound, which is currently covered with a scab. However, the area or swelling identified for the wound. 2. The patient to continue with short course of Zithromax Pulmonary for underlying tracheobronchitis. Family was present at bedside. Questions were answered. MMODL / IJN: [id number] /
[2018-05-21] MEDS: methylPREDNISolone SOD SUCCI 125 MG/2 ML VIAL IV SCH ×3 (05:30→17:36)
[2018-05-21 07:17] LABS: Glucose,Whole Blood 136 mg/dL (75-99)
[2018-05-21 07:50] LABS: Basophils % (A) 0 %; Eosinophils % (A) 0 %; HCT 44.9 % (39.0-53.0); HGB 13.9 gm/dL (13.0-17.5); Hypochromasia Slight; Lymphocytes # (A) 0.5 k/uL (1.0-4.8); Lymphocytes % (A) 10 %; MCH 30.6 pg (25.0-35.0); MCHC 30.9 g/dL (31.0-37.0); Mean Platelet Volume 7.6; Monocytes # (A) 0.2 k/uL (0-1.0); Monocytes % (A) 3 %; Neutrophils # (A) 4.3 k/uL (1.3-7.7); Neutrophils % (A) 85 %; Platelet Count 138 k/uL (150-450); RBC 4.53 m/uL (4.30-5.90); RDW 13.2 % (11.5-15.5); WBC 5.1 k/uL (3.8-10.6)
[2018-05-21 08:12] LABS: Anion Gap 6 mmol/L; Blood Urea Nitrogen 16 mg/dL (9-20); Calcium 9.3 mg/dL (8.4-10.2); Carbon Dioxide 31 mmol/L (22-30); Chloride 104 mmol/L (98-107); Glucose 145 mg/dL (74-99); Sodium 141 mmol/L (137-145)
[2018-05-21] MEDS: INSULIN ASPART 100 UNIT/ML 1 ML 10 ML VIAL SQ SCH ×4 (08:17→21:29)
[2018-05-21] MEDS: FORMOTEROL FUMARATE 20 MCG/2 ML NEBU INHALATION SCH ×2 (09:35→20:10)
[2018-05-21] MEDS: BUDESONIDE 1 MG/2 ML NEBU INHALATION SCH ×2 (09:35→20:11)
[2018-05-21] MEDS: IPRATROPIUM-ALBUTEROL 3 ML NEB INHALATION SCH ×4 (09:35→20:11)
[2018-05-21] MEDS: GABAPENTIN 400 MG CAP PO SCH ×4 (09:38→21:29)
[2018-05-21] MEDS: AZITHROMYCIN 500 MG TAB PO SCH (09:39)
[2018-05-21] MEDS: ATENOLOL 50 MG TAB PO SCH ×2 (09:39→21:29)
[2018-05-21] MEDS: amLODIPine 5 MG TAB PO SCH (09:39)
[2018-05-21] MEDS: PANTOPRAZOLE 40 MG TABLET PO SCH ×2 (09:39→17:36)
[2018-05-21] MEDS: HYDROcodone/APAP 10-325MG 1 EACH TAB PO PRN ×3 (09:39→21:28)
[2018-05-21] MEDS: HEPARIN SODIUM,PORCINE 5,000 UNIT/ML 1 ML VIAL SQ SCH ×2 (09:40→21:29)
--- NOTE | 2018-05-21 09:44 | P.PN ---
Subjective Principal diagnosis: COPD exacerbation Patient is doing well today. This shortness of breath has improved significantly. He is still on 2 L of oxygen. He was up to the bathroom with no difficulty and no shortness of breath. Objective - Vital Signs Vital signs: Vital Signs Temp 98.0 F 05/21/18 07:00 Pulse 64 05/21/18 09:35 Resp 15 05/21/18 07:00 BP 159/62 05/21/18 07:00 Pulse Ox 94 L 05/21/18 07:00 Intake & Output 05/20/18 05/21/18 05/21/18 18:59 06:59 18:59 Intake Total 300 Balance 300 Weight 93.894 kg Intake: IV 120 0.9 @ 40 120 Intake, IV Titration 180 Amount Sodium Chloride 0.9% 1, 180 000 ml @ 40 mls/hr IV . Q24H [facility] Rx#:[id number] Other: # Voids 1 1 - Exam General: The patient is awake and alert, in no distress Eye: there is normal conjunctiva bilaterally. Neck: The neck is supple, there is no JVD. Cardiovascular: Normal S1-S2, no S3-S4, no murmurs. Respiratory: Lungs slightly diminished with no wheezing Gastrointestinal: Abdomen is soft, nontender Musculoskeletal: There is no pedal edema. Neurological:. Speech is normal. Skin: Skin is warm and dry - Labs CBC & Chem 7: 05/21/18 06:36 05/21/18 06:36 Labs: Abnormal Lab Results - Last 24 Hours (Table) 05/20/18 05/20/18 05/20/18 Range/Units 08:49 08:49 16:53 MCHC 30.9 L (31.0-37.0) g/dL Plt Count 146 L (150-450) k/uL Lymphocytes # 0.5 L (1.0-4.8) k/uL Carbon Dioxide (22-30) mmol/L Glucose 130 H (74-99) mg/dL POC Glucose (mg/dL) 174 H (75-99) mg/dL 05/20/18 05/21/18 05/21/18 Range/Units 20:45 06:36 06:36 MCHC 30.9 L (31.0-37.0) g/dL Plt Count 138 L (150-450) k/uL Lymphocytes # 0.5 L (1.0-4.8) k/uL Carbon Dioxide 31 H (22-30) mmol/L Glucose 145 H (74-99) mg/dL POC Glucose (mg/dL) 171 H (75-99) mg/dL 05/21/18 Range/Units 07:05 MCHC (31.0-37.0) g/dL Plt Count (150-450) k/uL Lymphocytes # (1.0-4.8) k/uL Carbon Dioxide (22-30) mmol/L Glucose (74-99) mg/dL POC Glucose (mg/dL) 136 H (75-99) mg/dL Microbiology - Last 24 Hours (Table) 05/19/18 09:11 Blood Culture - Preliminary Blood No Growth after 24 hours Assessment and Plan Assessment: 1. Acute COPD exacerbation 2. 1 cm nodule in the left upper lobe of the lung: Noted on computed tomography scan awaiting further recommendations from pulmonology 3. Acute bacterial bronchitis 4. Acute hypoxic respiratory failure 5. Essential hypertension 6. Hyperlipidemia 7. History of back surgery with chronic back pain 8. Tobacco abuse, counseled to quit. 9. Chronic wound of the left lower abdomen at the morphine pump incision sites. Seen and evaluated by infectious disease. No evidence of infection. Follow-up in the wound care clinic as directed Today, I reviewed his medication list and lab work results. We will continue current regimen. Continue bronchodilators around the clock and when necessary. Azithromycin 500 mg daily for 5 days. Appreciate car sales consultant's recommendations. I Subcu heparin for DVT prophylaxis. Plan is to wean off O2 today and check oxygen saturation on room air with ambulation Patient was updated about his current condition. All of his questions answered to his satisfaction. Discharge planning tomorrow
--- NOTE | 2018-05-21 11:52 | P.PN ---
Subjective Progress Note Date: 05/21/18 Principal diagnosis: Acute exacerbation of chronic obstructive pulmonary disease complicated by purulent tracheobronchitis. Pulmonary consult dated 05/20/2018 This is a 67-year-old male with a history of CAD COPD CVA. The patient apparently presented to the emergency department May 19 with complaints of increasing shortness of breath. He still smoking cigarettes. The patient was complaining of chest tightness wheezing cough. Coughing up some phlegm. No fever or chills. No nausea vomiting or diarrhea. Chest x-ray showed only changes of COPD. In addition, there was apparently a small nodule in the left upper lobe. He is coughing up some phlegm. The fundus typically either white or slightly yellow. He's not coughing up any blood. There is no chest pain or chest pressure. I see him in the office for her COPD. His primary care physician is Dr. David Suazo. Today I counseled about the importance of smoking cessation. In talking to him about this for many many years. He does understand that he'll continue to lose lung function. He's got quite severe disease already. His past medical history is positive for CAD, COPD, CVA, GERD , hyperlipidemia, hypertension, DJD, BPH, vertigo, tinnitus, and a multitude of other medical problems and comorbidities. Progress note dated 05/21/2018 The patient is seen again today on the regular medical floor. He is awake and alert in no acute distress. He states he is breathing easier today as compared to yesterday. Still not quite back to his baseline. He is still requiring 4 L/ m per nasal cannula to maintain O2 saturations in the low 90s. He's been afebrile. Hemodynamically stable. Blood cultures reveal no growth to date. White count 5.1. Hemoglobin 13.9. Creatinine 0.78. He remains on DuoNeb inhalations 4 times a day and when necessary, Pulmicort and Perforomist inhalations twice a day, IV Solu-Medrol. He is empirically on azithromycin. Objective - Vital Signs Vital signs: Vital Signs Temp 98.0 F 05/21/18 07:00 Pulse 66 05/21/18 09:57 Resp 15 05/21/18 07:00 BP 159/62 05/21/18 07:00 Pulse Ox 90 L 05/21/18 10:33 Intake & Output 05/20/18 05/21/18 05/21/18 18:59 06:59 18:59 Intake Total 300 Balance 300 Weight 93.894 kg Intake: IV 120 0.9 @ 40 120 Intake, IV Titration 180 Amount Sodium Chloride 0.9% 1, 180 000 ml @ 40 mls/hr IV . Q24H [facility] Rx#:[id number] Other: # Voids 1 1 - Exam GENERAL EXAM: Alert, comfortable in no apparent distress. HEAD: Normocephalic. EYES: Normal reaction of pupils, equal size. NOSE: Clear with pink turbinates. THROAT: No erythema or exudates. NECK: No masses, no JVD. CHEST: No chest wall deformity. LUNGS: Equal air entry with bilateral end expiratory wheeze, diminished. CVS: S1 and S2 normal with no audible murmur, regular rhythm. ABDOMEN: No hepatosplenomegaly, normal bowel sounds, no guarding or rigidity. SPINE: No scoliosis or deformity SKIN: No rashes CENTRAL NERVOUS SYSTEM: No focal deficits, tone is normal in all 4 extremities. EXTREMITIES: There is no peripheral edema. No clubbing, no cyanosis. Peripheral pulses are intact. - Labs CBC & Chem 7: 05/21/18 06:36 05/21/18 06:36 Labs: Abnormal Lab Results - Last 24 Hours (Table) 05/20/18 05/20/18 05/21/18 Range/Units 16:53 20:45 06:36 MCHC 30.9 L (31.0-37.0) g/dL Plt Count 138 L (150-450) k/uL Lymphocytes # 0.5 L (1.0-4.8) k/uL Carbon Dioxide (22-30) mmol/L Glucose (74-99) mg/dL POC Glucose (mg/dL) 174 H 171 H (75-99) mg/dL 05/21/18 05/21/18 Range/Units 06:36 07:05 MCHC (31.0-37.0) g/dL Plt Count (150-450) k/uL Lymphocytes # (1.0-4.8) k/uL Carbon Dioxide 31 H (22-30) mmol/L Glucose 145 H (74-99) mg/dL POC Glucose (mg/dL) 136 H (75-99) mg/dL Microbiology - Last 24 Hours (Table) 05/19/18 09:11 Blood Culture - Preliminary Blood No Growth after 48 hours Assessment and Plan Assessment: Assessment COPD exacerbation compounded by purulent tracheobronchitis, without justina pneumonia Possible solitary pulmonary nodule, left upper lobe History of ongoing tobacco use with nicotine addiction History of CAD History of CVA Angina pectoris Gastroesophageal reflux disease Hyperlipidemia Hypertension DJD BPH Vertigo Plan: The patient was seen and evaluated by Dr. Wilkinson. He is improved today as compared to yesterday. We'll continue with his current treatment plan. He is again educated regarding the importance of complete smoking cessation. He will most likely require a patient PET scan regarding the solitary nodule in the left upper lobe. He may need home oxygen therapy. In the interim we'll continue to follow and make further recommendations based on his clinical status. I, the cosigning physician, performed a history & physical examination of the patient. Lungs sounds with bilateral end expiratory wheeze, diminished. Maintaining good O2 saturations in the 90s on 4 L/m per nasal cannula. I discussed the assessment and plan of care with my nurse practitioner, Radha Valenzuela. I attest to the above note as dictated by her.
[2018-05-21 12:24] LABS: Glucose,Whole Blood 213 mg/dL (75-99)
[2018-05-21 14:48] VITALS: TEMP 97.7
[2018-05-21 17:04] LABS: Glucose,Whole Blood 126 mg/dL (75-99)
[2018-05-21 21:09] LABS: Glucose,Whole Blood 149 mg/dL (75-99)
[2018-05-21] MEDS: TAMSULOSIN 0.4 MG CAP.ER.24H PO SCH (21:29)
[2018-05-21] MEDS: SODIUM CHLORIDE 0.9% 1,000 ML IV SCH (21:29)
[2018-05-21] MEDS: ATORVASTATIN 20 MG TAB PO SCH (21:29)
--- NOTE | 2018-05-21 23:09 | PN ---
PROGRESS NOTE DATE OF SERVICE: 05/21/2018. REASON FOR FOLLOWUP: 1. Abdominal wound. 2. Possible tracheobronchitis and pneumonia. INTERVAL HISTORY: The patient is afebrile. He has been breathing more comfortably. The cough has decreased in intensity. No chest pain. No abdominal pain. The abdominal is to be covered with . No swelling or redness or any drainage and no diarrhea. EXAMINATION: Blood pressure 127/64 with a pulse of 73, temperature 97.7. He is 92% on 4 L nasal cannula. General description is an elderly male up in the bed in no distress. Respiratory system unlabored breathing with decreased breath sounds in the base, with no wheeze. Heart S1, S2. Regular rate and rhythm. ABDOMEN: Soft. The pain pump site incision is currently covered with a scab, no drainage. LABS: Hemoglobin 13.8, white count 5.1 with a BUN of 16, creatinine 0.78. Blood culture has been negative. DIAGNOSTIC IMPRESSION/PLAN: 1. Patient with nonhealing wound to the abdominal wall. The site of the pain pump implantation that is currently covered with scab. Recommend no local care. Patient advised not to pick on the scab and . 2. The patient with tracheobronchitis with chronic obstructive pulmonary disease exacerbation. Clinically doubt pneumonia, currently on addition of steroids, bronchodilators per Pulmonary. 3. Continue supportive care. MMODL / IJN: [id number] /
[2018-05-22] MEDS: methylPREDNISolone SOD SUCCI 125 MG/2 ML VIAL IV SCH ×3 (00:56→12:59)
[2018-05-22] MEDS: HYDROcodone/APAP 10-325MG 1 EACH TAB PO PRN (05:46)
[2018-05-22 07:21] LABS: Glucose,Whole Blood 128 mg/dL (75-99)
[2018-05-22] MEDS: INSULIN ASPART 100 UNIT/ML 1 ML 10 ML VIAL SQ SCH ×2 (07:59→12:52)
[2018-05-22] MEDS: amLODIPine 5 MG TAB PO SCH (08:03)
[2018-05-22] MEDS: PANTOPRAZOLE 40 MG TABLET PO SCH (08:03)
[2018-05-22] MEDS: ATENOLOL 50 MG TAB PO SCH (08:03)
[2018-05-22] MEDS: GABAPENTIN 400 MG CAP PO SCH ×2 (08:04→12:58)
[2018-05-22] MEDS: HEPARIN SODIUM,PORCINE 5,000 UNIT/ML 1 ML VIAL SQ SCH (08:04)
[2018-05-22] MEDS: AZITHROMYCIN 500 MG TAB PO SCH (08:04)
[2018-05-22 08:06] VITALS: BP 143/73; RESP 17
[2018-05-22 08:13] LABS: Basophils % (A) 0 %; Eosinophils % (A) 1 %; HCT 44.7 % (39.0-53.0); HGB 13.9 gm/dL (13.0-17.5); Hypochromasia Slight; Lymphocytes # (A) 0.7 k/uL (1.0-4.8); Lymphocytes % (A) 9 %; MCH 30.7 pg (25.0-35.0); MCHC 31.2 g/dL (31.0-37.0); MCV 98.5 fL (80.0-100.0); Mean Platelet Volume 8.1; Monocytes # (A) 0.4 k/uL (0-1.0); Monocytes % (A) 5 %; Neutrophils # (A) 6.7 k/uL (1.3-7.7); Neutrophils % (A) 84 %; Platelet Count 153 k/uL (150-450); RBC 4.54 m/uL (4.30-5.90); RDW 13.1 % (11.5-15.5); WBC 7.9 k/uL (3.8-10.6)
[2018-05-22 08:37] LABS: Anion Gap 8 mmol/L; Blood Urea Nitrogen 14 mg/dL (9-20); Calcium 9.6 mg/dL (8.4-10.2); Carbon Dioxide 34 mmol/L (22-30); Chloride 100 mmol/L (98-107); Glucose 141 mg/dL (74-99); Potassium 4.8 mmol/L (3.5-5.1); Sodium 142 mmol/L (137-145)
[2018-05-22] MEDS: BUDESONIDE 1 MG/2 ML NEBU INHALATION SCH (08:53)
[2018-05-22] MEDS: IPRATROPIUM-ALBUTEROL 3 ML NEB INHALATION SCH ×2 (08:53→12:47)
[2018-05-22] MEDS: FORMOTEROL FUMARATE 20 MCG/2 ML NEBU INHALATION SCH (08:53)
--- NOTE | 2018-05-22 11:26 | P.PN ---
Subjective Progress Note Date: 05/22/18 Principal diagnosis: Acute exacerbation of chronic obstructive pulmonary disease complicated by purulent tracheobronchitis. Pulmonary consult dated 05/20/2018 This is a 67-year-old male with a history of CAD COPD CVA. The patient apparently presented to the emergency department May 19 with complaints of increasing shortness of breath. He still smoking cigarettes. The patient was complaining of chest tightness wheezing cough. Coughing up some phlegm. No fever or chills. No nausea vomiting or diarrhea. Chest x-ray showed only changes of COPD. In addition, there was apparently a small nodule in the left upper lobe. He is coughing up some phlegm. The fundus typically either white or slightly yellow. He's not coughing up any blood. There is no chest pain or chest pressure. I see him in the office for her COPD. His primary care physician is Dr. David Suazo. Today I counseled about the importance of smoking cessation. In talking to him about this for many many years. He does understand that he'll continue to lose lung function. He's got quite severe disease already. His past medical history is positive for CAD, COPD, CVA, GERD , hyperlipidemia, hypertension, DJD, BPH, vertigo, tinnitus, and a multitude of other medical problems and comorbidities. Progress note dated 05/21/2018 The patient is seen again today on the regular medical floor. He is awake and alert in no acute distress. He states he is breathing easier today as compared to yesterday. Still not quite back to his baseline. He is still requiring 4 L/ m per nasal cannula to maintain O2 saturations in the low 90s. He's been afebrile. Hemodynamically stable. Blood cultures reveal no growth to date. White count 5.1. Hemoglobin 13.9. Creatinine 0.78. He remains on DuoNeb inhalations 4 times a day and when necessary, Pulmicort and Perforomist inhalations twice a day, IV Solu-Medrol. He is empirically on azithromycin. Progress note dated 05/22/2018 The patient is seen again today in follow-up on the surgical floor. He is currently resting quite comfortably in bed. He is awake and alert in no acute distress. He is maintaining O2 saturations in the 90s on 4 L/m per nasal cannula. He's been afebrile. Hemodynamically stable. Blood culture reveals no growth to date. White count 7.9. Hemoglobin 13.9. Creatinine 0.66. Bicarb 34. Objective - Vital Signs Vital signs: Vital Signs Temp 97.7 F 05/22/18 07:00 Pulse 76 05/22/18 09:18 Resp 17 05/22/18 08:15 BP 143/73 05/22/18 07:00 Pulse Ox 92 L 05/22/18 01:19 Intake & Output 05/21/18 05/22/18 05/22/18 18:59 06:59 18:59 Intake Total 200 Balance 200 Intake: Oral 200 Other: # Voids 2 2 - Exam GENERAL EXAM: Alert, comfortable in no apparent distress. HEAD: Normocephalic. EYES: Normal reaction of pupils, equal size. NOSE: Clear with pink turbinates. THROAT: No erythema or exudates. NECK: No masses, no JVD. CHEST: No chest wall deformity. LUNGS: Equal air entry with bilateral end expiratory wheeze, diminished. CVS: S1 and S2 normal with no audible murmur, regular rhythm. ABDOMEN: No hepatosplenomegaly, normal bowel sounds, no guarding or rigidity. SPINE: No scoliosis or deformity SKIN: No rashes CENTRAL NERVOUS SYSTEM: No focal deficits, tone is normal in all 4 extremities. EXTREMITIES: There is no peripheral edema. No clubbing, no cyanosis. Peripheral pulses are intact. - Labs CBC & Chem 7: 05/22/18 06:20 05/22/18 06:20 Labs: Abnormal Lab Results - Last 24 Hours (Table) 05/21/18 05/21/18 05/21/18 Range/Units 12:09 16:52 20:58 Lymphocytes # (1.0-4.8) k/uL Carbon Dioxide (22-30) mmol/L Glucose (74-99) mg/dL POC Glucose (mg/dL) 213 H 126 H 149 H (75-99) mg/dL 05/22/18 05/22/18 05/22/18 Range/Units 06:20 06:20 07:10 Lymphocytes # 0.7 L (1.0-4.8) k/uL Carbon Dioxide 34 H (22-30) mmol/L Glucose 141 H (74-99) mg/dL POC Glucose (mg/dL) 128 H (75-99) mg/dL Microbiology - Last 24 Hours (Table) 05/19/18 09:11 Blood Culture - Preliminary Blood No Growth after 48 hours Assessment and Plan Assessment: Assessment COPD exacerbation compounded by purulent tracheobronchitis, without justina pneumonia Possible solitary pulmonary nodule, left upper lobe History of ongoing tobacco use with nicotine addiction History of CAD History of CVA Angina pectoris Gastroesophageal reflux disease Hyperlipidemia Hypertension DJD BPH Vertigo Plan: The patient was seen and evaluated by Dr. Bravo. He is improved today as compared to yesterday. He is cleared for discharge from the pulmonary standpoint. He'll complete a prednisone taper. Complete her course of antibiotics. He is again educated regarding the importance of complete smoking cessation. He will most likely require a patient PET scan regarding the solitary nodule in the left upper lobe. He will need home oxygen therapy. He will follow up with Dr. Bravo in our office in 1 week's time. He is however encouraged to call sooner with any recurrence of symptoms or other questions or concerns. I, the cosigning physician, performed a history & physical examination of the patient. Lungs sounds with bilateral end expiratory wheeze, diminished. Maintaining good O2 saturations in the 90s on 4 L/m per nasal cannula. I discussed the assessment and plan of care with my nurse practitioner, Radha Valenzuela. I attest to the above note as dictated by her.
--- NOTE | 2018-05-22 12:12 | P.DS ---
Providers Date of admission: 05/19/18 12:48 Expected date of discharge: 05/22/18 Attending physician: Braydon Arenas MD Consults: 05/19/18 14:03 Consult Physician Routine Consulting Provider: Avery Bravo Consult Reason/Comments: Acute hypoxia/lung nodule Do you want consulting provider notified?: Yes 05/20/18 09:24 Consult Physician Routine Consulting Provider: Nicholas Singleton Consult Reason/Comments: Chronic wound of the left lower abdomen Do you want consulting provider notified?: Yes Primary care physician: [facility] Course: This is a 67-year-old male with past medical history noted below who was sent to the ER originally from his PCP office with worsening shortness of breath and an oxygen saturation of 80% on room air. Patient was evaluated and was admitted to the hospital for acute COPD exacerbation. He was seen by pulmonology. Below is a list of his medical problems addressed during this admission. 1. Acute COPD exacerbation: Improved with bronchodilators and IV steroids. Will finish 5 days course of prednisone. Added long-acting beta agonist to his regimen. 2. 1 cm nodule in the left upper lobe of the lung: Noted on computed tomography scan. Plan to follow-up with pulmonology to obtain a PET scan for further evaluation 3. Acute bacterial bronchitis: Will finish 5 days course of azithromycin 4. Acute hypoxic respiratory failure: Patient is still requiring oxygen. Home O2 will be set up. Follow-up with pulmonology in the office 5. Essential hypertension 6. Hyperlipidemia 7. History of back surgery with chronic back pain 8. Tobacco abuse, counseled to quit. 9. Chronic wound of the left lower abdomen at the morphine pump incision sites. Seen and evaluated by infectious disease. No evidence of infection. Follow-up in the wound care clinic as directed Patient will be discharged home in a stable condition. All of his questions answered to his satisfaction. Patient Condition at Discharge: Fair Plan - Discharge Summary Discharge Rx Participant: No New Discharge Prescriptions: New Azithromycin [Zithromax] 500 mg PO DAILY #3 tab predniSONE 40 mg PO DAILY #10 tab Continue Albuterol Sulfate [Proventil Hfa] 2 puff INHALATION RT-Q6H PRN PRN Reason: Shortness Of Breath Budesonide-Formot 160-4.5 Mcg [Symbicort 160-4.5 Mcg Inhaler] 2 puff INHALATION RT-BID PRN PRN Reason: Wheezing HYDROcodone/APAP 10-325MG [[place] 10-325] 1 tab PO Q6H PRN PRN Reason: Pain Atenolol [Tenormin] 50 mg PO BID amLODIPine [Norvasc] 5 mg PO DAILY Albuterol Nebulized [Ventolin Nebulized] 2.5 mg INHALATION RT-Q6H Omeprazole [PriLOSEC] 20 mg PO BID Niacin 500 mg PO DAILY Ipratropium Nebulized [Atrovent Nebulized] 0.5 mg INHALATION RT-Q6H #0 Gabapentin [Neurontin] 400 mg PO QID Naproxen 500 mg PO BID PRN PRN Reason: PAIN/INFLAMMATION Simvastatin [Zocor] 40 mg PO HS Multivitamins, Thera [Multivitamin (formulary)] 1 tab PO DAILY Tamsulosin HCl [Flomax] 0.4 mg PO HS Changed Cyclobenzaprine [Flexeril] 10 mg PO TID PRN #0 PRN Reason: Muscle Spasm Discharge Medication List Albuterol Sulfate [Proventil Hfa] 2 puff INHALATION RT-Q6H PRN 12/01/15 [History ] Atenolol [Tenormin] 50 mg PO BID 12/01/15 [History] Budesonide-Formot 160-4.5 Mcg [Symbicort 160-4.5 Mcg Inhaler] 2 puff INHALATION RT-BID PRN 12/01/15 [History] HYDROcodone/APAP 10-325MG [Lee 10-325] 1 tab PO Q6H PRN 12/01/15 [History] amLODIPine [Norvasc] 5 mg PO DAILY 12/01/15 [History] Albuterol Nebulized [Ventolin Nebulized] 2.5 mg INHALATION RT-Q6H 06/25/16 [ History] Niacin 500 mg PO DAILY 06/25/16 [History] Omeprazole [PriLOSEC] 20 mg PO BID 06/25/16 [History] Ipratropium Nebulized [Atrovent Nebulized] 0.5 mg INHALATION RT-Q6H #0 06/26/16 [Rx] Gabapentin [Neurontin] 400 mg PO QID 05/19/18 [History] Multivitamins, Thera [Multivitamin (formulary)] 1 tab PO DAILY 05/19/18 [History ] Naproxen 500 mg PO BID PRN 05/19/18 [History] Simvastatin [Zocor] 40 mg PO HS 05/19/18 [History] Tamsulosin HCl [Flomax] 0.4 mg PO HS 05/19/18 [History] Azithromycin [Zithromax] 500 mg PO DAILY #3 tab 05/22/18 [Rx] Cyclobenzaprine [Flexeril] 10 mg PO TID PRN #0 05/22/18 [Rx] predniSONE 40 mg PO DAILY #10 tab 05/22/18 [Rx] Follow up Appointment(s)/Referral(s): David Suazo MD [Primary Care Provider] - 1-2 days Avery Bravo DO [Doctor of Osteopathic Medicine] - 1 Week Discharge Disposition: HOME SELF-CARE
[2018-05-22 12:27] LABS: Glucose,Whole Blood 130 mg/dL (75-99)
[2018-05-22 13:13] VITALS: PULSE 74
--- NOTE | 2018-05-22 17:25 | PN ---
PROGRESS NOTE DATE OF SERVICE: 05/22/2018. REASON FOR FOLLOWUP: 1. Tracheobronchitis. 2. Abdominal wound. INTERVAL HISTORY: The patient is currently afebrile. He has been breathing more comfortably. Denies having any chest pain or shortness of with occasional cough which is dry in nature. No abdominal pain. The abdominal surgery remains to be covered with a scab and has not opened up with no swelling and no redness. EXAMINATION: Blood pressure 143/73 with a pulse of 69, temperature 98.7. He is 96% on 2 L nasal cannula. General description is an elderly male up in the bed in no distress. Respiratory system: Unlabored breathing with decreased breath sounds at the bases. No wheeze. Heart S1, S2. Regular rate and rhythm. Abdomen soft. The pain pump site healed but covered with scab. LABS: Hemoglobin 13, white count 7.9, BUN of 14, creatinine 0.66. DIAGNOSTIC IMPRESSION AND PLAN: Patient with a nonhealing wound after pain pump implantation that has currently healed with no evidence of any cellulitis. PLAN: 1. Will be no specific dressing to the area and the patient advised not to cover the surgical area. 2. The patient with possible tracheobronchitis. Clinically doubt pneumonia. 3. Finish therapy with oral clindamycin treatment and steroids and per pulmonary. 4. Continue supportive care. MMODL / IJN: [id number] /
== END 2018-05-22 15:00 | disposition home or self-care (01) | DRG 190 ==
LOC: EC 08:29 → 4MS4W 12:48 → 4SSUR 17:16
PROVIDERS: ADMIT Family Medicine; ATTEND Family Medicine
DX: J44.0 Chronic obstructive pulmonary disease with (acute) lower respiratory infection (principal); J96.01 Acute respiratory failure with hypoxia; E78.5 Hyperlipidemia, unspecified; F17.210 Nicotine dependence, cigarettes, uncomplicated; I10 Essential (primary) hypertension; I25.119 Atherosclerotic heart disease of native coronary artery with unspecified angina pectoris; J20.9 Acute bronchitis, unspecified; J44.1 Chronic obstructive pulmonary disease with (acute) exacerbation; K21.9 Gastro-esophageal reflux disease without esophagitis; K58.9 Irritable bowel syndrome, unspecified; M19.90 Unspecified osteoarthritis, unspecified site; N40.0 Benign prostatic hyperplasia without lower urinary tract symptoms; Z79.51 Long term (current) use of inhaled steroids; Z79.899 Other long term (current) drug therapy; Z80.1 Family history of malignant neoplasm of trachea, bronchus and lung; Z86.73 Personal history of transient ischemic attack (TIA), and cerebral infarction without residual deficits; Z96.652 Presence of left artificial knee joint; Z98.41 Cataract extraction status, right eye; Z88.8 Allergy status to other drugs, medicaments and biological substances; Z71.6 Tobacco abuse counseling; L76.82 Other postprocedural complications of skin and subcutaneous tissue; Y83.8 Other surgical procedures as the cause of abnormal reaction of the patient, or of later complication, without mention of misadventure at the time of the procedure; R91.1 Solitary pulmonary nodule
CPT/HCPCS: 36415; 71046; 71260; 80048; 80053; 82550; 82553; 83735; 83880; 84484; 85025; 85610; 85730; 87040; 93005; 94640; 96374; 99285

== ENCOUNTER 2018-05-23 08:12 | Inpatient (IN) | payer MEDICARE, BC ==
[2018-05-23] MEDS ORDERED: MAGNESIUM SULFATE-D5W PMX 1 GM in DEXTROSE/WATER 1 100ML.BAG IVPB STA (08:15)
[2018-05-23] MEDS ORDERED: methylPREDNISolone SOD SUCCI 125 MG/2 ML VIAL IV STA (08:15)
[2018-05-23] MEDS ORDERED: SODIUM CHLORIDE 0.9% 1,000 ML IV STA (08:15)
--- NOTE | 2018-05-23 08:19 | ED ---
SOB HPI - General Stated Complaint: Diff breathing Time Seen by Provider: 05/23/18 08:12 Source: patient, EMS, RN notes reviewed, old records reviewed Mode of arrival: EMS - History of Present Illness Initial Comments: This is a 67-year-old male history of COPD who was just discharged from the hospital yesterday after approximately 3 day stay for treatment of COPD and pneumonia who states he started getting dyspneic last evening and was much worse this morning when he got up could not breathe he did call EMS. He was found have an 83% pulse ox on 4 L of oxygen be very wheezy. He was transported here for evaluation and route he did receive a DuoNeb with some improvement. He also had increased oxygen to 6 L. He denies any chest pain he has some chills no fevers no sweats no other symptoms to report no other modifying factors. MD Complaint: shortness of breath - Related Data Home Medications Medication Instructions Recorded Confirmed Albuterol Sulfate [Proventil Hfa] 2 puff INHALATION RT-Q6H PRN 12/01/15 05/19/18 Atenolol [Tenormin] 50 mg PO BID 12/01/15 05/19/18 Budesonide-Formot 160-4.5 Mcg 2 puff INHALATION RT-BID PRN 12/01/15 05/19/18 [Symbicort 160-4.5 Mcg Inhaler] HYDROcodone/APAP 10-325MG [[place] 1 tab PO Q6H PRN 12/01/15 05/19/18 10-325] amLODIPine [Norvasc] 5 mg PO DAILY 12/01/15 05/19/18 Albuterol Nebulized [Ventolin 2.5 mg INHALATION RT-Q6H 06/25/16 05/19/18 Nebulized] Niacin 500 mg PO DAILY 06/25/16 05/19/18 Omeprazole [PriLOSEC] 20 mg PO BID 06/25/16 05/19/18 Gabapentin [Neurontin] 400 mg PO QID 05/19/18 05/19/18 Multivitamins, Thera [Multivitamin 1 tab PO DAILY 05/19/18 05/19/18 (formulary)] Naproxen 500 mg PO BID PRN 05/19/18 05/19/18 Simvastatin [Zocor] 40 mg PO HS 05/19/18 05/19/18 Tamsulosin HCl [Flomax] 0.4 mg PO HS 05/19/18 05/19/18 Previous Rx's Medication Instructions Recorded Ipratropium Nebulized [Atrovent 0.5 mg INHALATION RT-Q6H #0 06/26/16 Nebulized] Azithromycin [Zithromax] 500 mg PO DAILY #3 tab 05/22/18 Cyclobenzaprine [Flexeril] 10 mg PO TID PRN #0 05/22/18 predniSONE 40 mg PO DAILY #10 tab 05/22/18 Allergies Allergy/AdvReac Type Severity Reaction Status Date / Time montelukast sodium Allergy Itching Verified 05/23/18 08:24 [From [facility] [place]] Review of Systems ROS Statement: Those systems with pertinent positive or pertinent negative responses have been documented in the HPI. ROS Other: All systems not noted in ROS Statement are negative. 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 History of Any Multi-Drug Resistant Organisms: None Reported Past Surgical History: Adenoidectomy, Back Surgery, Heart Catheterization, Hernia Repair, Joint Replacement, Orthopedic Surgery, Tonsillectomy Additional Past Surgical History / Comment(s): L knee replacement, back surgery x2-failed fusion and 2 rods in lower back, L/R cataract surgery, bilat. rib removal (cervical), carpal tunnel R wrist, colonoscopy, L elbow surgery, abdominal hernia repair, 3 R inguinal hernia repairs, L inguinal hernia repair, rectal cystectomy.pain pump(ms) implanted -2017 Past Anesthesia/Blood Transfusion Reactions: Previous Problems w/ Anesthesia Additional Past Anesthesia/Blood Transfusion Reaction / Comment(s): With first surgery became belligerent when waking up. Smoking Status: Current every day smoker - Past Family History Mother Family Medical History: No Reported History Additional Family Medical History / Comment(s): Mother was healthy and lived to be 88 or 89yrs old. Father Family Medical History: Cancer Additional Family Medical History / Comment(s): Father of lung cancer in his early 70's. General Exam - General Exam Comments Initial Comments: This is a well-developed well-nourished awake alert oriented times 3 male General appearance: alert, anxious, in distress Head exam: Present: atraumatic, normocephalic, normal inspection Eye exam: Present: normal appearance, PERRL, EOMI. Absent: scleral icterus, conjunctival injection, periorbital swelling ENT exam: Present: mucous membranes dry Neck exam: Present: normal inspection. Absent: tenderness, meningismus, lymphadenopathy Respiratory exam: Present: wheezes, accessory muscle use, decreased breath sounds. Absent: respiratory distress, rales, rhonchi, stridor, chest wall tenderness Cardiovascular Exam: Present: regular rate, normal rhythm, normal heart sounds. Absent: systolic murmur, diastolic murmur, rubs, gallop, clicks GI/Abdominal exam: Present: soft, normal bowel sounds. Absent: distended, tenderness, guarding, rebound, rigid Extremities exam: Present: normal inspection, full ROM, normal capillary refill. Absent: tenderness, pedal edema, joint swelling, calf tenderness Back exam: Present: normal inspection Neurological exam: Present: alert, oriented X3, CN II-XII intact Psychiatric exam: Present: normal affect, normal mood Skin exam: Present: warm, dry, intact, normal color. Absent: rash Course Vital Signs 05/23/18 05/23/18 05/23/18 08:18 08:21 08:30 Temperature 98.0 F Pulse Rate 69 76 Respiratory 20 28 H 13 Rate Blood Pressure 145/77 145/77 O2 Sat by Pulse 94 L 94 L Oximetry 05/23/18 05/23/18 05/23/18 08:45 09:00 09:04 Temperature Pulse Rate 72 71 78 Respiratory 23 Rate Blood Pressure 147/75 O2 Sat by Pulse 97 Oximetry 05/23/18 05/23/18 09:30 10:00 Temperature Pulse Rate 72 68 Respiratory 23 23 Rate Blood Pressure 157/82 162/77 O2 Sat by Pulse 96 95 Oximetry - Reevaluation(s) Reevaluation #1: 05/23/18 11:25 I did reevaluate the patient initially did not respond well to therapy he did require BiPAP. Medical Decision Making - Medical Decision Making I did discuss findings with the patient family members. Also with Dr. Live who did come to see the patient in the emergency department patient will be admitted COPD exacerbation and CHF - Lab Data Result diagrams: 05/23/18 08:40 05/23/18 08:40 Lab Results 05/23/18 05/23/18 05/23/18 Range/Units 08:40 08:40 08:40 WBC 8.1 (3.8-10.6) k/uL RBC 4.80 (4.30-5.90) m/uL Hgb 14.6 (13.0-17.5) gm/dL Hct 45.4 (39.0-53.0) % MCV 94.7 (80.0-100.0) fL MCH 30.5 (25.0-35.0) pg MCHC 32.2 (31.0-37.0) g/dL RDW 13.2 (11.5-15.5) % Plt Count 170 (150-450) k/uL Neutrophils % 83 % Lymphocytes % 9 % Monocytes % 6 % Eosinophils % 0 % Basophils % 0 % Neutrophils # 6.7 (1.3-7.7) k/uL Lymphocytes # 0.7 L (1.0-4.8) k/uL Monocytes # 0.5 (0-1.0) k/uL Eosinophils # 0.0 (0-0.7) k/uL Basophils # 0.0 (0-0.2) k/uL PT (9.0-12.0) sec INR (<1.2) APTT (22.0-30.0) sec Sodium 137 (137-145) mmol/L Potassium 4.1 (3.5-5.1) mmol/L Chloride 98 (98-107) mmol/L Carbon Dioxide 34 H (22-30) mmol/L Anion Gap 5 mmol/L BUN 19 (9-20) mg/dL Creatinine 0.63 L (0.66-1.25) mg/dL Est GFR (CKD-EPI)AfAm >90 (>60 ml/min/1.73 sqM) Est GFR (CKD-EPI)NonAf >90 (>60 ml/min/1.73 sqM) Glucose 101 H (74-99) mg/dL Calcium 10.1 (8.4-10.2) mg/dL Magnesium 1.9 (1.6-2.3) mg/dL Total Bilirubin 0.7 (0.2-1.3) mg/dL AST 50 (17-59) U/L ALT 34 (21-72) U/L Alkaline Phosphatase 99 (38-126) U/L Total Creatine Kinase 104 (55-170) U/L CK-MB (CK-2) 3.3 H (0.0-2.4) ng/mL CK-MB (CK-2) Rel Index 3.2 Troponin I <0.012 (0.000-0.034) ng/mL NT-Pro-B Natriuret Pep pg/mL Total Protein 6.7 (6.3-8.2) g/dL Albumin 3.5 (3.5-5.0) g/dL 05/23/18 05/23/18 Range/Units 08:40 08:40 WBC (3.8-10.6) k/uL RBC (4.30-5.90) m/uL Hgb (13.0-17.5) gm/dL Hct (39.0-53.0) % MCV (80.0-100.0) fL MCH (25.0-35.0) pg MCHC (31.0-37.0) g/dL RDW (11.5-15.5) % Plt Count (150-450) k/uL Neutrophils % % Lymphocytes % % Monocytes % % Eosinophils % % Basophils % % Neutrophils # (1.3-7.7) k/uL Lymphocytes # (1.0-4.8) k/uL Monocytes # (0-1.0) k/uL Eosinophils # (0-0.7) k/uL Basophils # (0-0.2) k/uL PT 10.1 (9.0-12.0) sec INR 1.0 (<1.2) APTT 23.5 (22.0-30.0) sec Sodium (137-145) mmol/L Potassium (3.5-5.1) mmol/L Chloride (98-107) mmol/L Carbon Dioxide (22-30) mmol/L Anion Gap mmol/L BUN (9-20) mg/dL Creatinine (0.66-1.25) mg/dL Est GFR (CKD-EPI)AfAm (>60 ml/min/1.73 sqM) Est GFR (CKD-EPI)NonAf (>60 ml/min/1.73 sqM) Glucose (74-99) mg/dL Calcium (8.4-10.2) mg/dL Magnesium (1.6-2.3) mg/dL Total Bilirubin (0.2-1.3) mg/dL AST (17-59) U/L ALT (21-72) U/L Alkaline Phosphatase (38-126) U/L Total Creatine Kinase (55-170) U/L CK-MB (CK-2) (0.0-2.4) ng/mL CK-MB (CK-2) Rel Index Troponin I (0.000-0.034) ng/mL NT-Pro-B Natriuret Pep 1620 pg/mL Total Protein (6.3-8.2) g/dL Albumin (3.5-5.0) g/dL - EKG Data -: EKG Interpreted by Me EKG shows normal: sinus rhythm (Normal sinus rhythm of 72. Interval 132 QRS duration 92 QT since QTC 460/455 st-t wave changes) - Radiology Data Radiology results: report reviewed (I did review the imaging and report cardiomegaly no definite acute findings.), image reviewed Critical Care Time Critical Care Time: Yes Critical Care Time: 33 minutes of critical care time which includes initial monitoring the EMS run and discussed with paramedics history physical labs x-rays several reevaluation the patient response to therapy discuss with the patient family and several occasions discussion with the admitting physician admission orders documentation the above. Disposition Clinical Impression: Acute exacerbation of chronic obstructive airways disease, Congestive heart failure, Adult respiratory distress syndrome Disposition: ADMITTED IP TO THIS HOSP Condition: Serious Referrals: David Suazo MD [Primary Care Provider] - 1-2 days
[2018-05-23] MEDS ORDERED: IPRATROPIUM-ALBUTEROL 3 ML NEB INHALATION STA (08:38)
[2018-05-23 08:50] LABS: Basophils % (A) 0 %; Eosinophils % (A) 0 %; HCT 45.4 % (39.0-53.0); HGB 14.6 gm/dL (13.0-17.5); Lymphocytes # (A) 0.7 k/uL (1.0-4.8); Lymphocytes % (A) 9 %; MCH 30.5 pg (25.0-35.0); MCHC 32.2 g/dL (31.0-37.0); MCV 94.7 fL (80.0-100.0); Mean Platelet Volume 7.3; Monocytes # (A) 0.5 k/uL (0-1.0); Monocytes % (A) 6 %; Neutrophils # (A) 6.7 k/uL (1.3-7.7); Neutrophils % (A) 83 %; Platelet Count 170 k/uL (150-450); RDW 13.2 % (11.5-15.5); WBC 8.1 k/uL (3.8-10.6)
[2018-05-23 08:54] LABS: Partial Thromboplastin Time 23.5 sec (22.0-30.0); Prothrombin Time 10.1 sec (9.0-12.0)
[2018-05-23 08:57] LABS: ALT 34 U/L (21-72); AST 50 U/L (17-59); Albumin 3.5 g/dL (3.5-5.0); Alkaline Phosphatase 99 U/L (38-126); Anion Gap 5 mmol/L; Blood Urea Nitrogen 19 mg/dL (9-20); Calcium 10.1 mg/dL (8.4-10.2); Carbon Dioxide 34 mmol/L (22-30); Chloride 98 mmol/L (98-107); Glucose 101 mg/dL (74-99); Magnesium 1.9 mg/dL (1.6-2.3); Potassium 4.1 mmol/L (3.5-5.1); Sodium 137 mmol/L (137-145); Total Bilirubin 0.7 mg/dL (0.2-1.3); Total Protein 6.7 g/dL (6.3-8.2)
[2018-05-23 09:15] LABS: Creatine Kinase 104 U/L (55-170)
[2018-05-23] MEDS ORDERED: LORazepam 2 MG/ML INJ IV STA ×2 (09:26→13:20)
[2018-05-23 09:28] LABS: Creatine Kinase MB 3.3 ng/mL (0.0-2.4); Troponin I <0.012 ng/mL (0.000-0.034)
--- NOTE | 2018-05-23 09:30 | XR ---
EXAMINATION TYPE: XR chest 1V portable DATE OF EXAM: 05/23/2018 HISTORY: difficulty breathing. REFERENCE: Previous study dated 05/19/2018. FINDINGS: The lungs are overinflated. The heart is mildly prominent. The lungs are clear. Pleural spa filemon are clear. The patient's known pulmonary nodules are not visualized on this study. IMPRESSION: 1. COPD. 2. MILD CARDIOMEGALY.
[2018-05-23] MEDS ORDERED: FUROSEMIDE 10 MG/ML 4 ML VIAL IV STA (10:54)
[2018-05-23] MEDS ORDERED: NAPROXEN 250 MG TAB PO PRN (11:30)
[2018-05-23] MEDS ORDERED: CYCLOBENZAPRINE 10 MG TAB PO PRN (11:30)
[2018-05-23] MEDS ORDERED: IPRATROPIUM-ALBUTEROL 3 ML NEB INHALATION PRN (11:49)
[2018-05-23] MEDS ORDERED: LORazepam 1 MG TAB PO PRN (11:51)
--- NOTE | 2018-05-23 12:00 | P.HPIM ---
History of Present Illness H&P Date: 05/23/18 Chief Complaint: Worsening shortness of breath and wheezes The patient is a 67-year-old male with a past medical history of COPD , with recently diagnosed chronic respiratory failure who was recently discharged home yesterday 05/22/18 on 4 L nasal cannula after a three-day stay here for acute COPD exacerbation. Apparently the patient reported that he never quite got back to feeling like he was close to his baseline and yesterday after getting home he began wheezing again with increasing shortness of breath despite using his albuterol nebulizer. The patient then asked his to return him to the hospital, however he felt significantly dyspneic that he wanted to come by ambulance, apparently on arrival the patient was noted to be hypoxic on room air with saturations in the 80s, he was bumped up to 6 L given a breathing treatment on route and then brought to the ER, In the ED here he had a conference and workup. Chest x-ray was consistent with COPD with mild cardiomegaly, troponins were negative at less than 0.012, NT proBNP was elevated at 1620. He was given Ativan a breathing treatment. The patient was placed on BiPAP Ativan recommended for admission for acute COPD exacerbation Review of records indicates the patient had recently had a CT of his chest 05/20 that showed a 7 assist in the left upper lobe with a new 1 cm lung nodule, interstitial changes and extensive diffuse tree-in-bud densities were also noted Review of Systems Pertinent positives per HPI, all other review of systems otherwise negative Past Medical History Past Medical History: Coronary Artery Disease (CAD), Chest Pain / Angina, COPD, CVA/TIA, Eye Disorder, GERD/Reflux, Hyperlipidemia, Hypertension, Osteoarthritis (OA), Prostate Disorder Additional Past Medical History / Comment(s): BPH, 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 History of Any Multi-Drug Resistant Organisms: None Reported Past Surgical History: Adenoidectomy, Back Surgery, Heart Catheterization, Hernia Repair, Joint Replacement, Orthopedic Surgery, Tonsillectomy Additional Past Surgical History / Comment(s): L knee replacement, back surgery x2-failed fusion and 2 rods in lower back, L/R cataract surgery, bilat. rib removal (cervical), carpal tunnel R wrist, colonoscopy, L elbow surgery, abdominal hernia repair, 3 R inguinal hernia repairs, L inguinal hernia repair, rectal cystectomy.pain pump(ms) implanted -2017 Past Anesthesia/Blood Transfusion Reactions: Previous Problems w/ Anesthesia Additional Past Anesthesia/Blood Transfusion Reaction / Comment(s): With first surgery became belligerent when waking up. Smoking Status: Current every day smoker - Past Family History Mother Family Medical History: No Reported History Additional Family Medical History / Comment(s): Mother was healthy and lived to be 88 or 89yrs old. Father Family Medical History: Cancer Additional Family Medical History / Comment(s): Father of lung cancer in his early 70's. Medications and Allergies Home Medications Medication Instructions Recorded Confirmed Type Albuterol Sulfate [Proventil Hfa] 2 puff INHALATION RT-Q6H PRN 12/01/15 History Atenolol [Tenormin] 50 mg PO BID 12/01/15 05/19/18 History Budesonide-Formot 160-4.5 Mcg 2 puff INHALATION RT-BID PRN 12/01/15 05/19/18 History [Symbicort 160-4.5 Mcg Inhaler] HYDROcodone/APAP 10-325MG [[place] 1 tab PO Q6H PRN 12/01/15 05/19/18 History 10-325] amLODIPine [Norvasc] 5 mg PO DAILY 12/01/15 05/19/18 History Albuterol Nebulized [Ventolin 2.5 mg INHALATION RT-Q6H 06/25/16 05/19/18 History Nebulized] Niacin 500 mg PO DAILY 06/25/16 05/19/18 History Omeprazole [PriLOSEC] 20 mg PO BID 06/25/16 05/19/18 History Ipratropium Nebulized [Atrovent 0.5 mg INHALATION RT-Q6H #0 06/26/16 05/19/18 Rx Nebulized] Gabapentin [Neurontin] 400 mg PO QID 05/19/18 05/19/18 History Multivitamins, Thera [Multivitamin 1 tab PO DAILY 05/19/18 05/19/18 History (formulary)] Naproxen 500 mg PO BID PRN 05/19/18 05/19/18 History Simvastatin [Zocor] 40 mg PO HS 05/19/18 05/19/18 History Tamsulosin HCl [Flomax] 0.4 mg PO HS 05/19/18 05/19/18 History Azithromycin [Zithromax] 500 mg PO DAILY #3 tab 05/22/18 Rx Cyclobenzaprine [Flexeril] 10 mg PO TID PRN #0 05/22/18 05/19/18 Rx predniSONE 40 mg PO DAILY #10 tab 05/22/18 Rx Allergies Allergy/AdvReac Type Severity Reaction Status Date / Time montelukast sodium Allergy Itching Verified 05/23/18 08:24 [From [facility]] Physical Exam Vitals: Vital Signs Temp Pulse Resp BP Pulse Ox 05/23/18 10:00 68 23 162/77 95 05/23/18 09:30 72 23 157/82 96 05/23/18 09:04 78 05/23/18 09:00 71 23 147/75 97 05/23/18 08:45 72 05/23/18 08:30 76 13 145/77 94 L 05/23/18 08:21 28 H 05/23/18 08:18 98.0 F 69 20 145/77 94 L Intake and Output 05/22/18 05/23/18 05/23/18 22:59 06:59 14:59 Other: Weight 93.894 kg Constitutional: Mild to moderate distress, conversant, pleasant Eyes: Anicteric sclerae, moist conjunctiva, no lid-lag, PERRLA ENMT: NC/AT,Oropharynx clear, no erythema, exudates Neck:Supple, FROM, no masses, or JVD, No carotid bruits; No thyromegaly Lungs: Faint wheezes, coarse breath sounds Clear to percussion, Normal respiratory effort, no accessory muscle use on BiPAP Cardiovascular: Heart regular in rate and rhythm, No murmurs, gallops, or rubs no peripheral edema Abdominal: Soft Nontender, nom distended, no guarding, no rebound or rigidity, Normoactive bowel sounds No hepatomegaly, No splenomegaly, No palpable mass No abdominal wall hernia noted Skin: Normal temperature, tone, texture, turgor, No induration No subcutaneous nodules, No rash, lesions, No ulcers Extremities:No digital cyanosis No clubbing, Pedal pulses intact and symmetrical Radial pulses intact and symmetrical Normal gait and station, No calf tenderness Psychiatric: Alert and oriented to person, place and time, Appropriate affect Intact judgement Neuro: Muscles Strength 5/5 in all 4 extremities, Sensation to light touch grossly present throughout, Cranial nerves II-XII grossly intact. No focal sensory deficits Results CBC & Chem 7: 05/23/18 08:40 05/23/18 08:40 Labs: Abnormal Lab Results - Last 24 Hours (Table) 05/23/18 05/23/18 05/23/18 Range/Units 08:40 08:40 08:40 Lymphocytes # 0.7 L (1.0-4.8) k/uL Carbon Dioxide 34 H (22-30) mmol/L Creatinine 0.63 L (0.66-1.25) mg/dL Glucose 101 H (74-99) mg/dL CK-MB (CK-2) 3.3 H (0.0-2.4) ng/mL Assessment and Plan Assessment: Chronic medical issues Coronary artery disease Essential hypertension Dyslipidemia COPD GERD BPH (1) Acute and chronic respiratory failure with hypoxia Current Visit: Yes Status: Acute Code(s): J96.21 - ACUTE AND CHRONIC RESPIRATORY FAILURE WITH HYPOXIA SNOMED Code(s): 42934146 (2) Acute exacerbation of chronic obstructive airways disease Current Visit: Yes Status: Acute Code(s): J44.1 - CHRONIC OBSTRUCTIVE PULMONARY DISEASE W (ACUTE) EXACERBATION SNOMED Code(s): 230311574 (3) Atypical pneumonia Current Visit: Yes Status: Acute Code(s): J18.9 - PNEUMONIA, UNSPECIFIED ORGANISM SNOMED Code(s): 100260831 (4) Essential hypertension Current Visit: Yes Status: Acute Code(s): I10 - ESSENTIAL (PRIMARY) HYPERTENSION SNOMED Code(s): 97057808 Plan: The patient is admitted anticipate a greater than 2 midnight stay with acute on chronic respiratory failure secondary to relapse of his acute COPD exacerbation , patient recently discharged and has failed outpatient therapy. Currently on BiPAP we'll check an ABG, initiated when necessary and scheduled DuoNeb bronchodilator breathing treatments, continue systemic steroids patient did receive a loading dose of Solu-Medrol in the ER, initiate performist, Jennifer plan to consult pulmonology for further recommendations, continue antibiotic regimen with Levaquin. Patient was noted to be in accelerated hypertension, resume his home hypertensive regimen and continue to monitor his blood pressure , we'll check a 2-D echocardiogram given his elevated NT proBNP. Continue to follow his clinical course. DVT and GI prophylaxis with Lovenox and SCDs and Protonix respectively CODE STATUS: Full code Discussed Care with the patient and Anticipate discharge 2 to 3 days
[2018-05-23] MEDS: methylPREDNISolone SOD SUCCI 125 MG/2 ML VIAL IV SCH ×2 (13:28→21:15)
[2018-05-23 13:50] LABS: ABG Base Excess 13.8 mmol/L; ABG HCO3 37 mmol/L (21-25); ABG Oxygen Saturation 92.2 % (94-97); ABG PCO2 45 mmHg (35-45); ABG PH 7.52 (7.35-7.45); ABG PO2 61 mmHg (83-108); ABG TCO2 38 mmol/L (19-24)
--- NOTE | 2018-05-23 14:35 | P.CNPUL ---
History of Present Illness Consult date: 05/23/18 Requesting physician: Braydon Arenas Reason for consult: dyspnea Chief complaint: Shortness of breath, anxiety History of present illness: This a very pleasant 67-year-old gentleman who follows with Dr. diop as his primary care physician. He has a history of coronary disease, CVA/TIA, esophageal reflux disease, hypertension, hyperlipidemia, osteoarthritis, benign prosthetic hypertrophy, irritable bowel syndrome. He also has a history of significant 40+ year smoking history up to 2 packs per day. He was just discharged from here yesterday following an exacerbation of chronic obstructive pulmonary disease. Computed tomography scan of the chest revealed a new 1 cm nodule along the margin of the left upper lobe and the plan was for follow-up CT scans. He came back to the emergency room today with worsening shortness of breath, anxiety, tremors. It has been 1 week since his last cigarette and he had refused NicoDerm patches last admission. Chest x-ray today reveals chronic obstructive pulmonary disease and mild cardiomegaly but no acute pulmonary process. Arterial blood gases on 40% FiO2 revealed a PaO2 of 61, pCO2 45, pH 7.52. He is currently on BiPAP 10 over 4 at 40% FiO2. He is afebrile. Hemodynamically stable. White count 8.1. Hemoglobin 14.6. Bicarb 34. Creatinine 0.63. ProBNP 1620. He was given diuretics and is diuresing well. He is seen in consultation in the emergency room. He is quite restless and anxious, tremors in the upper extremities. He is keeping the BiPAP in place. His lungs sound clear but diminished. He has been initiated and DuoNeb inhalations, Perforomist and Pulmicort inhalations, IV Solu-Medrol. Review of Systems Constitutional: Reports poor appetite, Reports weakness Eyes: denies blurred vision, denies decreased vision Ears: bilateral: decreased hearing Ears, nose, mouth and throat: Denies headache, Denies sore throat Cardiovascular: Reports decreased exercise tolerance, Reports dyspnea on exertion, Reports shortness of breath Respiratory: Reports dyspnea Gastrointestinal: Denies abdominal pain, Denies diarrhea, Denies nausea, Denies vomiting Genitourinary: Reports urinary hesitancy Musculoskeletal: Reports gait dysfunction, Reports limitation of motion Integumentary: Reports color changes Neurological: Reports confusion, Reports gait dysfunction, Reports tremors Psychiatric: Reports anxiety, Reports confusion, Reports disorientation Endocrine: Denies fatigue, Denies weight change Hematologic/Lymphatic: Reports as per HPI Allergic/Immunologic: Reports as per HPI Past Medical History Past Medical History: Coronary Artery Disease (CAD), Chest Pain / Angina, COPD, CVA/TIA, Eye Disorder, GERD/Reflux, Hyperlipidemia, Hypertension, Osteoarthritis (OA), Prostate Disorder Additional Past Medical History / Comment(s): BPH, 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 History of Any Multi-Drug Resistant Organisms: None Reported Past Surgical History: Adenoidectomy, Back Surgery, Heart Catheterization, Hernia Repair, Joint Replacement, Orthopedic Surgery, Tonsillectomy Additional Past Surgical History / Comment(s): L knee replacement, back surgery x2-failed fusion and 2 rods in lower back, L/R cataract surgery, bilat. rib removal (cervical), carpal tunnel R wrist, colonoscopy, L elbow surgery, abdominal hernia repair, 3 R inguinal hernia repairs, L inguinal hernia repair, rectal cystectomy.pain pump(ms) implanted Past Anesthesia/Blood Transfusion Reactions: Previous Problems w/ Anesthesia Additional Past Anesthesia/Blood Transfusion Reaction / Comment(s): With first surgery became belligerent when waking up. Smoking Status: Current every day smoker - Past Family History Mother Family Medical History: No Reported History Additional Family Medical History / Comment(s): Mother was healthy and lived to be 88 or 89yrs old. Father Family Medical History: Cancer Additional Family Medical History / Comment(s): Father of lung cancer in his early 70's. Medications and Allergies Home Medications Medication Instructions Recorded Confirmed Type Albuterol Sulfate [Proventil Hfa] 2 puff INHALATION RT-Q6H PRN 12/01/15 History Atenolol [Tenormin] 50 mg PO BID 12/01/15 05/23/18 History Budesonide-Formot 160-4.5 Mcg 2 puff INHALATION RT-BID PRN 12/01/15 05/23/18 History [Symbicort 160-4.5 Mcg Inhaler] HYDROcodone/APAP 10-325MG [[place] 1 tab PO Q6H PRN 12/01/15 05/23/18 History 10-325] amLODIPine [Norvasc] 5 mg PO DAILY 12/01/15 05/23/18 History Albuterol Nebulized [Ventolin 2.5 mg INHALATION RT-Q6H 06/25/16 05/23/18 History Nebulized] Niacin 500 mg PO HS 06/25/16 05/23/18 History Omeprazole [PriLOSEC] 20 mg PO BID 06/25/16 05/23/18 History Ipratropium Nebulized [Atrovent 0.5 mg INHALATION RT-Q6H #0 06/26/16 05/23/18 Rx Nebulized] Gabapentin [Neurontin] 400 mg PO QID 05/19/18 05/23/18 History Multivitamins, Thera [Multivitamin 1 tab PO DAILY 05/19/18 05/23/18 History (formulary)] Naproxen 500 mg PO BID PRN 05/19/18 05/23/18 History Simvastatin [Zocor] 40 mg PO HS 05/19/18 05/23/18 History Tamsulosin HCl [Flomax] 0.4 mg PO HS 05/19/18 05/23/18 History Azithromycin [Zithromax] 500 mg PO DAILY #3 tab 05/22/18 05/23/18 Rx Cyclobenzaprine [Flexeril] 10 mg PO TID PRN #0 05/22/18 05/23/18 Rx predniSONE 40 mg PO DAILY #10 tab 05/22/18 05/23/18 Rx Allergies Allergy/AdvReac Type Severity Reaction Status Date / Time montelukast sodium Allergy Itching Verified 05/23/18 12:50 [From [facility]] Physical Exam Vitals: Vital Signs Temp Pulse Resp BP Pulse Ox 05/23/18 14:00 97.8 F 94 16 144/76 96 05/23/18 13:30 80 17 157/64 94 L 05/23/18 13:00 88 37 H 138/76 91 L 05/23/18 12:30 80 26 H 159/73 92 L 05/23/18 12:00 76 23 129/84 95 05/23/18 11:30 81 33 H 164/71 94 L 05/23/18 11:00 75 24 164/77 96 05/23/18 10:30 89 25 H 144/82 96 05/23/18 10:00 68 23 162/77 95 05/23/18 09:30 72 23 157/82 96 05/23/18 09:04 78 05/23/18 09:00 71 23 147/75 97 05/23/18 08:45 72 05/23/18 08:30 76 13 145/77 94 L 05/23/18 08:21 28 H 05/23/18 08:18 98.0 F 69 20 145/77 94 L Intake and Output 05/22/18 05/23/18 05/23/18 22:59 06:59 14:59 Other: Weight 93.894 kg - Constitutional General appearance: disheveled, mild distress - EENT Eyes: EOMI, PERRLA ENT: hard of hearing - Neck Neck: normal ROM Carotids: bilateral: upstroke normal Thyroid: bilateral: normal size - Respiratory Respiratory: bilateral: CTA, diminished - Cardiovascular Rhythm: regular Heart sounds: normal: S1, S2 - Gastrointestinal General gastrointestinal: normal bowel sounds - Integumentary Integumentary: normal turgor - Neurologic Neurologic: CNII-XII intact - Musculoskeletal Musculoskeletal: generalized weakness - Psychiatric Anxious, restless Results - Laboratory Findings CBC and BMP: 05/23/18 08:40 05/23/18 08:40 ABG ABG pH 7.52 (7.35-7.45) H 05/23/18 13:46 ABG pCO2 45 mmHg (35-45) 05/23/18 13:46 ABG pO2 61 mmHg (83-108) L 05/23/18 13:46 ABG O2 Saturation 92.2 % (94-97) L 05/23/18 13:46 PT/INR, D-dimer PT 10.1 sec (9.0-12.0) 05/23/18 08:40 INR 1.0 (<1.2) 05/23/18 08:40 Abnormal lab findings: Abnormal Labs 05/23/18 05/23/18 05/23/18 08:40 08:40 08:40 Lymphocytes # 0.7 L ABG pH ABG pO2 ABG HCO3 ABG Total CO2 ABG O2 Saturation Carbon Dioxide 34 H Creatinine 0.63 L Glucose 101 H CK-MB (CK-2) 3.3 H 05/23/18 13:46 Lymphocytes # ABG pH 7.52 H ABG pO2 61 L ABG HCO3 37 H ABG Total CO2 38 H ABG O2 Saturation 92.2 L Carbon Dioxide Creatinine Glucose CK-MB (CK-2) - Diagnostic Findings Chest x-ray: image reviewed Assessment and Plan Assessment: Impression: #1 Acute on chronic hypoxic respiratory failure secondary to acute exacerbation of chronic obstructive pulmonary disease. #2 Anxiety and tremors secondary to above and possibly related to tobacco withdrawal. #3 Hypertension. #4 Hyperlipidemia. #5 Benign prostatic hypertrophy. #6 Gastroesophageal reflux disease. #7 History of CVA/TIA. #8 Coronary artery disease. #9 Osteoarthritis. #10 Irritable bowel syndrome. Plan: The patient was seen and evaluated by Dr. Bravo. Chest x-ray, ABGs and labs reviewed. No acute pulmonary process. We'll continue with his treatment for the COPD including DuoNeb inhalations 4 times a day and when necessary, Pulmicort and Perforomist inhalations twice a day, IV Solu-Medrol, empiric antibiotics in the form of azithromycin. Apply a NicoDerm patch. Continue BiPAP support as necessary. We'll continue to follow and make further recommendations based on his clinical status. I, the cosigning physician, performed a history & physical examination of the patient. Lungs sounds are clear but diminished. Maintaining good O2 saturations in the 90s on or to percent FiO2 per BiPAP. I discussed the assessment and plan of care with my nurse practitioner, Radha Valenzuela. I attest to the above consultation as dictated by her. Time with Patient: Greater than 30
[2018-05-23 14:38] VITALS: BMI 29.7
[2018-05-23] MEDS: GABAPENTIN 400 MG CAP PO SCH ×3 (14:41→21:48)
[2018-05-23 16:31] LABS: Glucose,Whole Blood 172 mg/dL (75-99)
[2018-05-23] MEDS: IPRATROPIUM-ALBUTEROL 3 ML NEB INHALATION SCH ×3 (16:32→21:11)
[2018-05-23] MEDS: HYDROcodone/APAP 10-325MG 1 EACH TAB PO PRN (16:34)
[2018-05-23] MEDS: NICOTINE 14MG/24HR PATCH TRANSDERM SCH (16:39)
[2018-05-23] MEDS: PANTOPRAZOLE 40 MG TABLET PO SCH (18:52)
[2018-05-23 20:36] LABS: Glucose,Whole Blood 136 mg/dL (75-99)
[2018-05-23] MEDS: BUDESONIDE 1 MG/2 ML NEBU INHALATION SCH (21:11)
[2018-05-23] MEDS: FORMOTEROL FUMARATE 20 MCG/2 ML NEBU INHALATION SCH (21:11)
[2018-05-23] MEDS: ATORVASTATIN 20 MG TAB PO SCH (21:48)
[2018-05-23] MEDS: ATENOLOL 50 MG TAB PO SCH (21:48)
[2018-05-23] MEDS: TAMSULOSIN 0.4 MG CAP.ER.24H PO SCH (21:48)
[2018-05-24] MEDS: methylPREDNISolone SOD SUCCI 125 MG/2 ML VIAL IV SCH ×5 (00:08→23:57)
[2018-05-24] MEDS: IPRATROPIUM-ALBUTEROL 3 ML NEB INHALATION SCH ×7 (00:24→23:52)
[2018-05-24 05:58] LABS: Glucose,Whole Blood 163 mg/dL (75-99)
[2018-05-24] MEDS: INSULIN ASPART 100 UNIT/ML 1 ML 10 ML VIAL SQ SCH ×4 (07:10→21:18)
[2018-05-24] MEDS: PANTOPRAZOLE 40 MG TABLET PO SCH ×2 (07:10→19:28)
[2018-05-24] MEDS ORDERED: AZITHROMYCIN 500 MG TAB PO SCH (09:00)
[2018-05-24] MEDS: BUDESONIDE 1 MG/2 ML NEBU INHALATION SCH ×2 (09:15→19:56)
[2018-05-24] MEDS: FORMOTEROL FUMARATE 20 MCG/2 ML NEBU INHALATION SCH ×2 (09:16→19:57)
[2018-05-24] MEDS: ATENOLOL 50 MG TAB PO SCH ×2 (09:20→21:18)
[2018-05-24] MEDS: AZITHROMYCIN 500 MG TAB PO SCH (09:20)
[2018-05-24] MEDS: amLODIPine 5 MG TAB PO SCH (09:20)
[2018-05-24] MEDS: NICOTINE 14MG/24HR PATCH TRANSDERM SCH (09:20)
[2018-05-24] MEDS: GABAPENTIN 400 MG CAP PO SCH ×4 (09:20→21:18)
--- NOTE | 2018-05-24 10:14 | P.PN ---
Subjective Progress Note Date: 05/24/18 Patient's at bedside feeling much better today, not currently on BiPAP on 4 L nasal cannula with adequate oxygen saturations, reports to moving better air today. Still having wheezes and cough, patient afebrile overnight without leukocytosis Objective - Vital Signs Vital signs: Vital Signs Temp 98.4 F 05/24/18 08:00 Pulse 74 05/24/18 09:44 Resp 18 05/24/18 08:00 BP 152/62 05/24/18 08:00 Pulse Ox 93 L 05/24/18 09:19 Intake & Output 05/23/18 05/24/18 05/24/18 18:59 06:59 18:59 Intake Total 200 Output Total 300 Balance -300 200 Weight 93.89 kg 85 kg Intake: Intake, IV Titration 20 Amount Sodium Chloride 0.9% 1, 20 000 ml @ 20 mls/hr IV . Q24H STA Rx#:[id number] Oral 180 Output: Urine 300 - Exam Constitutional: Mild to moderate distress, conversant, pleasant Eyes: Anicteric sclerae, moist conjunctiva, no lid-lag, PERRLA ENMT: NC/AT,Oropharynx clear, no erythema, exudates Neck:Supple, FROM, no masses, or JVD, No carotid bruits; No thyromegaly Lungs: Faint wheezes, coarse breath sounds, diminished in the bases Clear to percussion, Normal respiratory effort, no accessory muscle use on 4 L nasal cannula Cardiovascular: Heart regular in rate and rhythm, No murmurs, gallops, or rubs no peripheral edema Abdominal: Soft Nontender, nom distended, no guarding, no rebound or rigidity, Normoactive bowel sounds No hepatomegaly, No splenomegaly, No palpable mass No abdominal wall hernia noted Skin: Normal temperature, tone, texture, turgor, No induration No subcutaneous nodules, No rash, lesions, No ulcers Extremities:No digital cyanosis No clubbing, Pedal pulses intact and symmetrical Radial pulses intact and symmetrical Normal gait and station, No calf tenderness Psychiatric: Alert and oriented to person, place and time, Appropriate affect Intact judgement Neuro: Muscles Strength 5/5 in all 4 extremities, Sensation to light touch grossly present throughout, Cranial nerves II-XII grossly intact. No focal sensory deficits - Labs CBC & Chem 7: 05/23/18 08:40 05/23/18 08:40 Labs: Abnormal Lab Results - Last 24 Hours (Table) 05/23/18 05/23/18 05/23/18 Range/Units 13:46 16:11 20:35 ABG pH 7.52 H (7.35-7.45) ABG pO2 61 L (83-108) mmHg ABG HCO3 37 H (21-25) mmol/L ABG Total CO2 38 H (19-24) mmol/L ABG O2 Saturation 92.2 L (94-97) % POC Glucose (mg/dL) 172 H 136 H (75-99) mg/dL 05/24/18 Range/Units 05:32 ABG pH (7.35-7.45) ABG pO2 (83-108) mmHg ABG HCO3 (21-25) mmol/L ABG Total CO2 (19-24) mmol/L ABG O2 Saturation (94-97) % POC Glucose (mg/dL) 163 H (75-99) mg/dL Assessment and Plan (1) Acute and chronic respiratory failure with hypoxia Narrative/Plan: * Secondary to acute COPD exacerbation * Continue current regimen with IV steroids and DuoNeb therapy every 4 hours and when necessary, continue Perforomist and Pulmicort and empiric antibiotics with oral azithromycin * Patient weaned down to 4 L nasal cannula continue to monitor his saturations Current Visit: Yes Status: Acute Code(s): J96.21 - ACUTE AND CHRONIC RESPIRATORY FAILURE WITH HYPOXIA SNOMED Code(s): 72183935 (2) Acute exacerbation of chronic obstructive airways disease Narrative/Plan: * Treatment as above Current Visit: Yes Status: Acute Code(s): J44.1 - CHRONIC OBSTRUCTIVE PULMONARY DISEASE W (ACUTE) EXACERBATION SNOMED Code(s): 823824754 (3) Essential hypertension Narrative/Plan: * Blood pressure is much improved * Continue current regimen Current Visit: Yes Status: Acute Code(s): I10 - ESSENTIAL (PRIMARY) HYPERTENSION SNOMED Code(s): 63518093 (4) Atypical pneumonia Narrative/Plan: * Continue azithromycin therapy Current Visit: Yes Status: Acute Code(s): J18.9 - PNEUMONIA, UNSPECIFIED ORGANISM SNOMED Code(s): 687889668 Plan: Anticipated discharge * 1-2 days
[2018-05-24] MEDS: MULTIVITAMINS, THERA 1 EACH TAB PO SCH (11:05)
[2018-05-24 11:45] LABS: Glucose,Whole Blood 164 mg/dL (75-99)
--- NOTE | 2018-05-24 11:59 | P.PN ---
Subjective Progress Note Date: 05/24/18 Principal diagnosis: COPD exacerbation Progress note dated 05/24/2018 This is a 67-year-old male who was recently inpatient discharged home and return to the hospital in less than one day with worsening shortness of breath. The patient's previous admission was for acute hypoxemic respiratory failure secondary to COPD exacerbation. The patient also was admitted with a diagnosis of possible nicotine withdrawal syndrome, hypertension, hyperlipidemia, BPH, GERD, CVA, CAD, osteoarthritis, irritable bowel syndrome. The patient is feeling much better today. Still very short of breath. Coughing. Not producing much or any phlegm. Wheezing. Lots of chest congestion. There is no fever or chills. No nausea vomiting or diarrhea. No chest pain or chest discomfort. The patient's chest x-ray showed changes of COPD with cardiomegaly. He was eventually started back on the same medications he was on prior to his discharge. Basically that includes systemic corticosteroids, Duonebs, Pulmicort, performist, and antibiotics. He was also placed on IV Solu- Medrol. The patient was also found to have a small solitary pulmonary nodule, left upper lobe which will be worked up as an outpatient. Objective - Vital Signs Vital signs: Vital Signs Temp 97.9 F 05/24/18 11:37 Pulse 65 05/24/18 11:37 Resp 16 05/24/18 11:37 BP 143/67 05/24/18 11:37 Pulse Ox 91 L 05/24/18 11:37 Intake & Output 05/23/18 05/24/18 05/24/18 18:59 06:59 18:59 Intake Total 200 Output Total 300 Balance -300 200 Weight 93.89 kg 85 kg Intake: Intake, IV Titration 20 Amount Sodium Chloride 0.9% 1, 20 000 ml @ 20 mls/hr IV . Q24H STA Rx#:[id number] Oral 180 Output: Urine 300 - Exam No acute distress, oriented 3. Nasal O2 in place. No audible wheezing. No use of accessory muscles. HEENT examination is grossly unremarkable. Mucous membranes are moist. No oral lesions. Neck supple. Full range of motion. No adenopathy thyromegaly or neck vein distention. Cardiovascular examination reveals regular rhythm rate. S1-S2 normal. No S3 or S4. No discernible murmur noted. Lungs reveal coarse bilateral expiratory rhonchi and wheezes. Breath sounds are diminished. There is prolongation on forced maneuver. No crackles. Adventitious lung sounds are more prominent on forced maneuver. He certainly sounds worse and he did when he was discharged to couple days ago. Abdomen soft bowel sounds are heard. No masses or tenderness. Extremities are intact. No cyanosis clubbing or edema. Skin is without rash or lesion. Neurologic examination is brief but nonfocal. - Labs CBC & Chem 7: 05/23/18 08:40 05/23/18 08:40 Labs: Abnormal Lab Results - Last 24 Hours (Table) 05/23/18 05/23/18 05/23/18 Range/Units 13:46 16:11 20:35 ABG pH 7.52 H (7.35-7.45) ABG pO2 61 L (83-108) mmHg ABG HCO3 37 H (21-25) mmol/L ABG Total CO2 38 H (19-24) mmol/L ABG O2 Saturation 92.2 L (94-97) % POC Glucose (mg/dL) 172 H 136 H (75-99) mg/dL 05/24/18 05/24/18 Range/Units 05:32 11:44 ABG pH (7.35-7.45) ABG pO2 (83-108) mmHg ABG HCO3 (21-25) mmol/L ABG Total CO2 (19-24) mmol/L ABG O2 Saturation (94-97) % POC Glucose (mg/dL) 163 H 164 H (75-99) mg/dL Assessment and Plan Assessment: Assessment COPD exacerbation with acute hypoxemic respiratory failure, with recent admission and discharge over the last couple of days. Chronic hypoxemic respiratory failure Ongoing tobacco use and significant nicotine addiction until recently. Small solitary pulmonary nodule, left upper lobe, to be evaluated as an outpatient Rule out nicotine withdrawal syndrome Hypertension by history Hyperlipidemia by history BPH GERD History of CVA/TIA CAD Osteoarthritis Irritable bowel syndrome Plan: Plan dated 05/24/2018 The patient will continue on all the usual breathing medications that he was on the last time he was admitted here. In addition, the patient will follow-up with me in the office to better evaluate the lesion in the left upper lobe. He will likely need an outpatient PET scan. The lesions only about 10 or 11 mm. It is too small to biopsy. Labs from yesterday are reviewed. The patient appears to be much more comfortable than he was yesterday. Arterial blood gases yesterday were borderline with a PaO2 of 61 pCO2 of 45 and a pH 7.52. This blood gases consistent with a post hypercapnic alkalosis. He remains on Zithromax, Pulmicort 1 mg, formoterol, Duonebs, and Solu-Medrol. Time with Patient: Less than 30
[2018-05-24] MEDS: HYDROcodone/APAP 10-325MG 1 EACH TAB PO PRN (13:38)
--- NOTE | 2018-05-24 13:42 | ECHOF ---
Referral Reason:elevated BNP MEASUREMENTS -------- HEIGHT: 177.8 cm WEIGHT: 93.9 kg BP: 162/77 RVIDd: 3.5 cm (< 3.3) IVSd: 1.2 cm (0.6 - 1.1) LVIDd: 5.2 cm (3.9 - 5.3) LVPWd: 1.2 cm (0.6 - 1.1) IVSs: 1.8 cm LVIDs: 3.5 cm LVPWs: 1.7 cm LA Diam: 3.8 cm (2.7 - 3.8) LAESV Index (A-L): 20.88 ml/m Ao Diam: 3.5 cm (2.0 - 3.7) AV Cusp: 2.3 cm (1.5 - 2.6) EPSS: 0.6 cm MV E Fred: 0.65 m/s MV DecT: 318 ms MV A Fred: 0.74 m/s MV E/A Ratio: 0.87 MV EF SLOPE: 24.05 mm/s (70 - 150) MV EXCURSION: 1.24 cm (> 18.000) FINDINGS -------- Sinus rhythm. This was a technically adequate study. The left ventricular size is normal. There is borderline concentric left ventricular hypertrophy. Overall left ventricular systolic function is normal with, an EF between 60 - 65 %. The right ventricle is mildly enlarged. Normal LA size by volume 22+/-6 ml/m2. The right atrium is normal in size. The aortic valve is trileaflet and appears structurally normal. The mitral valve is normal. The tricuspid valve appears structurally normal. Trace/mild (physiologic) pulmonic regurgitation. The aortic root size is normal. Normal inferior vena cava with normal inspiratory collapse consistent with estimated right atrial pre ssure of 5 mmHg. There is no pericardial effusion. CONCLUSIONS -------- 1. Sinus rhythm. 2. This was a technically adequate study. 3. The left ventricular size is normal. 4. There is borderline concentric left ventricular hypertrophy. 5. Overall left ventricular systolic function is normal with, an EF between 60 - 65 %. 6. The right ventricle is mildly enlarged. 7. Normal LA size by volume 22+/-6 ml/m2. 8. The right atrium is normal in size. 9. The aortic valve is trileaflet and appears structurally normal. 10. The mitral valve is normal. 11. The tricuspid valve appears structurally normal. 12. Trace/mild (physiologic) pulmonic regurgitation. 13. The aortic root size is normal. 14. Normal inferior vena cava with normal inspiratory collapse consistent with estimated right atrial pressure of 5 mmHg. 15. There is no pericardial effusion. [employer] CONSULTANT: EYAD Garrett
[2018-05-24 17:05] LABS: Glucose,Whole Blood 142 mg/dL (75-99)
[2018-05-24 20:14] LABS: Glucose,Whole Blood 133 mg/dL (75-99)
[2018-05-24] MEDS: TAMSULOSIN 0.4 MG CAP.ER.24H PO SCH (21:17)
[2018-05-24] MEDS: NIACIN TR 500 MG CAPSULE.ER PO SCH (21:18)
[2018-05-24] MEDS: ATORVASTATIN 20 MG TAB PO SCH (21:18)
[2018-05-25] MEDS: IPRATROPIUM-ALBUTEROL 3 ML NEB INHALATION SCH ×6 (02:52→23:56)
[2018-05-25] MEDS: methylPREDNISolone SOD SUCCI 125 MG/2 ML VIAL IV SCH ×3 (04:53→17:57)
[2018-05-25 06:58] LABS: Glucose,Whole Blood 131 mg/dL (75-99)
[2018-05-25] MEDS: HYDROcodone/APAP 10-325MG 1 EACH TAB PO PRN ×2 (07:23→19:29)
[2018-05-25] MEDS: PANTOPRAZOLE 40 MG TABLET PO SCH ×2 (07:26→17:57)
[2018-05-25] MEDS: INSULIN ASPART 100 UNIT/ML 1 ML 10 ML VIAL SQ SCH ×4 (07:58→20:46)
[2018-05-25] MEDS: NICOTINE 14MG/24HR PATCH TRANSDERM SCH (07:59)
[2018-05-25] MEDS: ATENOLOL 50 MG TAB PO SCH ×2 (07:59→20:40)
[2018-05-25] MEDS: amLODIPine 5 MG TAB PO SCH (07:59)
[2018-05-25] MEDS: AZITHROMYCIN 500 MG TAB PO SCH (08:00)
[2018-05-25] MEDS: GABAPENTIN 400 MG CAP PO SCH ×4 (08:00→21:50)
[2018-05-25] MEDS: BUDESONIDE 1 MG/2 ML NEBU INHALATION SCH ×2 (08:06→20:31)
[2018-05-25] MEDS: FORMOTEROL FUMARATE 20 MCG/2 ML NEBU INHALATION SCH ×2 (08:06→20:31)
--- NOTE | 2018-05-25 09:27 | P.PN ---
Subjective Progress Note Date: 05/25/18 Patient's at bedside feeling much better today, not currently on BiPAP on 4 L nasal cannula with adequate oxygen saturations, reports to moving better air today. Still having wheezes and cough, currently receiving updraft breathing treatment, feels like he is getting close to his baseline where he reports chronic wheezes Objective - Vital Signs Vital signs: Vital Signs Temp 98.5 F 05/25/18 05:16 Pulse 70 05/25/18 08:28 Resp 20 05/25/18 05:16 BP 127/61 05/25/18 05:16 Pulse Ox 93 L 05/25/18 05:16 Intake & Output 05/24/18 05/25/18 05/25/18 18:59 06:59 18:59 Intake Total 200 Balance 200 Weight 85 kg Intake: Intake, IV Titration 20 Amount Sodium Chloride 0.9% 1, 20 000 ml @ 20 mls/hr IV . Q24H STA Rx#:[id number] Oral 180 Other: # Voids 2 1 - Exam Constitutional: No acute distress conversant, pleasant Eyes: Anicteric sclerae, moist conjunctiva, no lid-lag, PERRLA ENMT: NC/AT,Oropharynx clear, no erythema, exudates Neck:Supple, FROM, no masses, or JVD, No carotid bruits; No thyromegaly Lungs: Faint wheezes expiratory, diminished in the bases Clear to percussion, Normal respiratory effort, no accessory muscle use on 4 L nasal cannula Cardiovascular: Heart regular in rate and rhythm, No murmurs, gallops, or rubs no peripheral edema Abdominal: Soft Nontender, nom distended, no guarding, no rebound or rigidity, Normoactive bowel sounds No hepatomegaly, No splenomegaly, No palpable mass No abdominal wall hernia noted Skin: Normal temperature, tone, texture, turgor, No induration No subcutaneous nodules, No rash, lesions, No ulcers Extremities:No digital cyanosis No clubbing, Pedal pulses intact and symmetrical Radial pulses intact and symmetrical Normal gait and station, No calf tenderness Psychiatric: Alert and oriented to person, place and time, Appropriate affect Intact judgement Neuro: Muscles Strength 5/5 in all 4 extremities, Sensation to light touch grossly present throughout, Cranial nerves II-XII grossly intact. No focal sensory deficits - Labs CBC & Chem 7: 05/23/18 08:40 05/23/18 08:40 Labs: Abnormal Lab Results - Last 24 Hours (Table) 05/24/18 05/24/18 05/24/18 Range/Units 11:44 17:04 20:11 POC Glucose (mg/dL) 164 H 142 H 133 H (75-99) mg/dL 05/25/18 Range/Units 06:56 POC Glucose (mg/dL) 131 H (75-99) mg/dL Microbiology - Last 24 Hours (Table) 05/24/18 09:35 Gram Stain - Preliminary Sputum Assessment and Plan (1) Acute and chronic respiratory failure with hypoxia Narrative/Plan: * Secondary to acute COPD exacerbation * Continue current regimen with IV steroids and DuoNeb therapy every 4 hours and when necessary, continue Perforomist and Pulmicort and empiric antibiotics with oral azithromycin * Patient weaned down to 4 L nasal cannula continue to monitor his saturations Current Visit: Yes Status: Acute Code(s): J96.21 - ACUTE AND CHRONIC RESPIRATORY FAILURE WITH HYPOXIA SNOMED Code(s): 17029839 (2) Acute exacerbation of chronic obstructive airways disease Narrative/Plan: * Treatment as above Current Visit: Yes Status: Acute Code(s): J44.1 - CHRONIC OBSTRUCTIVE PULMONARY DISEASE W (ACUTE) EXACERBATION SNOMED Code(s): 604545919 (3) Essential hypertension Narrative/Plan: * Blood pressure is much improved * Continue current regimen Current Visit: Yes Status: Acute Code(s): I10 - ESSENTIAL (PRIMARY) HYPERTENSION SNOMED Code(s): 00436540 (4) Pulmonary nodule Narrative/Plan: * Will be worked up as an outpatient in pulmonary clinic * Likely need a PET scan as the nodule is only 10-11 mm in size and would be difficult to biopsy Current Visit: Yes Status: Acute Code(s): R91.1 - SOLITARY PULMONARY NODULE SNOMED Code(s): 950195536 Plan: * Continue current management * Anticipated discharge tomorrow
[2018-05-25 11:15] LABS: Glucose,Whole Blood 132 mg/dL (75-99)
[2018-05-25 11:29] LABS: Hemoglobin A1C 6.3 % (4.0-6.0)
[2018-05-25] MEDS: MULTIVITAMINS, THERA 1 EACH TAB PO SCH (13:02)
--- NOTE | 2018-05-25 15:29 | P.PN ---
Subjective Progress Note Date: 05/25/18 Principal diagnosis: Acute COPD exacerbation Progress note dated 05/24/2018 This is a 67-year-old male who was recently inpatient discharged home and return to the hospital in less than one day with worsening shortness of breath. The patient's previous admission was for acute hypoxemic respiratory failure secondary to COPD exacerbation. The patient also was admitted with a diagnosis of possible nicotine withdrawal syndrome, hypertension, hyperlipidemia, BPH, GERD, CVA, CAD, osteoarthritis, irritable bowel syndrome. The patient is feeling much better today. Still very short of breath. Coughing. Not producing much or any phlegm. Wheezing. Lots of chest congestion. There is no fever or chills. No nausea vomiting or diarrhea. No chest pain or chest discomfort. The patient's chest x-ray showed changes of COPD with cardiomegaly. He was eventually started back on the same medications he was on prior to his discharge. Basically that includes systemic corticosteroids, Duonebs, Pulmicort, performist, and antibiotics. He was also placed on IV Solu- Medrol. The patient was also found to have a small solitary pulmonary nodule, left upper lobe which will be worked up as an outpatient. On 05/23/2018 patient seen in follow-up on 3 surgical floor. He is less congested today, he reports breathing much easier. Lung sounds are positive for some rhonchi, but no significant wheezes noted. Currently on 4 L per nasal cannula, his pulse ox is 96%, he is afebrile, occasional cough with some sputum production with white-yellow phlegm. He did wear the BiPAP mask last night. Overall he continues to improve. Continue current medical treatment, anticipate further improvement, possible discharge home in the next 24-48 hours. Objective - Vital Signs Vital signs: Vital Signs Temp 98.5 F 05/25/18 12:24 Pulse 69 05/25/18 12:24 Resp 17 05/25/18 12:24 BP 118/59 05/25/18 12:24 Pulse Ox 96 05/25/18 12:24 Intake & Output 05/24/18 05/25/18 05/25/18 18:59 06:59 18:59 Intake Total 200 Balance 200 Weight 85 kg Intake: Intake, IV Titration 20 Amount Sodium Chloride 0.9% 1, 20 000 ml @ 20 mls/hr IV . Q24H STA Rx#:[id number] Oral 180 Other: # Voids 2 1 - Exam No acute distress, oriented 3. Nasal O2 in place. No audible wheezing. No use of accessory muscles. HEENT examination is grossly unremarkable. Mucous membranes are moist. No oral lesions. Neck supple. Full range of motion. No adenopathy thyromegaly or neck vein distention. Cardiovascular examination reveals regular rhythm rate. S1-S2 normal. No S3 or S4. No discernible murmur noted. Lungs reveal coarse bilateral expiratory rhonchi and wheezes. Breath sounds are diminished. There is prolongation on forced maneuver. No crackles. Adventitious lung sounds are more prominent on forced maneuver. He certainly sounds worse and he did when he was discharged to couple days ago. Abdomen soft bowel sounds are heard. No masses or tenderness. Extremities are intact. No cyanosis clubbing or edema. Skin is without rash or lesion. Neurologic examination is brief but nonfocal. - Labs CBC & Chem 7: 05/23/18 08:40 05/23/18 08:40 Labs: Abnormal Lab Results - Last 24 Hours (Table) 05/23/18 05/24/18 05/24/18 Range/Units 08:20 17:04 20:11 POC Glucose (mg/dL) 142 H 133 H (75-99) mg/dL Hemoglobin A1c 6.3 H (4.0-6.0) % 05/25/18 05/25/18 Range/Units 06:56 11:14 POC Glucose (mg/dL) 131 H 132 H (75-99) mg/dL Hemoglobin A1c (4.0-6.0) % Microbiology - Last 24 Hours (Table) 05/24/18 09:35 Gram Stain - Preliminary Sputum Assessment and Plan Plan: COPD exacerbation with acute hypoxemic respiratory failure, with recent admission and discharge over the last couple of days. Chronic hypoxemic respiratory failure Ongoing tobacco use and significant nicotine addiction until recently. Small solitary pulmonary nodule, left upper lobe, to be evaluated as an outpatient Rule out nicotine withdrawal syndrome Hypertension by history Hyperlipidemia by history BPH GERD History of CVA/TIA CAD Osteoarthritis Irritable bowel syndrome Plan: Continue current medical treatment, IV steroids, nebs as bronchodilators, and empiric antibiotics, cultures pending, no fever or chills. Clinically patient is improving, BiPAP support at night and on as-needed basis, increase activity as tolerated. Possible discharge home in the next 24-48 hours and the patient continues to improve I performed a history & physical examination of the patient and discussed their management with my nurse practitioner, Aicha Mosquera. I reviewed the nurse practitioner's note and agree with the documented findings and plan of care. Lung sounds are diminished, with a few rhonchi, no significant wheezes noted on today's exam. The findings and the impression was discussed with the patient. I attest to the documentation by the nurse practitioner. Time with Patient: Less than 30
[2018-05-25 16:40] LABS: Glucose,Whole Blood 168 mg/dL (75-99)
[2018-05-25 20:03] LABS: Glucose,Whole Blood 207 mg/dL (75-99)
[2018-05-25] MEDS: ATORVASTATIN 20 MG TAB PO SCH (20:40)
[2018-05-25] MEDS: TAMSULOSIN 0.4 MG CAP.ER.24H PO SCH (20:40)
[2018-05-25] MEDS: NIACIN TR 500 MG CAPSULE.ER PO SCH (20:40)
[2018-05-26] MEDS: methylPREDNISolone SOD SUCCI 125 MG/2 ML VIAL IV SCH ×3 (00:01→11:35)
[2018-05-26] MEDS: HYDROcodone/APAP 10-325MG 1 EACH TAB PO PRN ×2 (03:24→12:53)
[2018-05-26] MEDS: IPRATROPIUM-ALBUTEROL 3 ML NEB INHALATION SCH ×3 (03:33→12:19)
[2018-05-26 07:01] LABS: Glucose,Whole Blood 151 mg/dL (75-99)
[2018-05-26] MEDS: INSULIN ASPART 100 UNIT/ML 1 ML 10 ML VIAL SQ SCH ×2 (07:57→12:30)
[2018-05-26] MEDS: amLODIPine 5 MG TAB PO SCH (07:58)
[2018-05-26] MEDS: NICOTINE 14MG/24HR PATCH TRANSDERM SCH (07:58)
[2018-05-26] MEDS: ATENOLOL 50 MG TAB PO SCH (07:58)
[2018-05-26] MEDS: PANTOPRAZOLE 40 MG TABLET PO SCH (07:58)
[2018-05-26] MEDS: AZITHROMYCIN 500 MG TAB PO SCH (07:59)
[2018-05-26] MEDS: GABAPENTIN 400 MG CAP PO SCH ×2 (07:59→12:46)
[2018-05-26] MEDS: FORMOTEROL FUMARATE 20 MCG/2 ML NEBU INHALATION SCH (08:44)
[2018-05-26] MEDS: BUDESONIDE 1 MG/2 ML NEBU INHALATION SCH (08:44)
[2018-05-26 09:14] VITALS: RESP 20
[2018-05-26 11:02] LABS: Glucose,Whole Blood 150 mg/dL (75-99)
[2018-05-26] MEDS: MULTIVITAMINS, THERA 1 EACH TAB PO SCH (11:36)
[2018-05-26 12:04] VITALS: BP 141/67; TEMP 97.9
[2018-05-26 12:31] VITALS: PULSE 84
--- NOTE | 2018-05-26 12:43 | P.PN ---
Subjective Progress Note Date: 05/26/18 Principal diagnosis: Acute on chronic respiratory failure secondary to an acute exacerbation of chronic obstructive pulmonary disease. This a very pleasant 67-year-old gentleman who follows with Dr. diop as his primary care physician. He has a history of coronary disease, CVA/TIA, esophageal reflux disease, hypertension, hyperlipidemia, osteoarthritis, benign prosthetic hypertrophy, irritable bowel syndrome. He also has a history of significant 40+ year smoking history up to 2 packs per day. He was just discharged from here yesterday following an exacerbation of chronic obstructive pulmonary disease. Computed tomography scan of the chest revealed a new 1 cm nodule along the margin of the left upper lobe and the plan was for follow-up CT scans. He came back to the emergency room today with worsening shortness of breath, anxiety, tremors. It has been 1 week since his last cigarette and he had refused NicoDerm patches last admission. Chest x-ray today reveals chronic obstructive pulmonary disease and mild cardiomegaly but no acute pulmonary process. Arterial blood gases on 40% FiO2 revealed a PaO2 of 61, pCO2 45, pH 7.52. He is currently on BiPAP 10 over 4 at 40% FiO2. He is afebrile. Hemodynamically stable. White count 8.1. Hemoglobin 14.6. Bicarb 34. Creatinine 0.63. ProBNP 1620. He was given diuretics and is diuresing well. He is seen in consultation in the emergency room. He is quite restless and anxious, tremors in the upper extremities. He is keeping the BiPAP in place. His lungs sound clear but diminished. He has been initiated and DuoNeb inhalations, Perforomist and Pulmicort inhalations, IV Solu-Medrol. The patient is seen again today May 26 2018 in follow-up on the regular medical floor. He is currently sitting up in bed. He is awake and alert in no acute distress. He states his breathing is nearly back to his baseline. He is anxious to go home. He is maintaining O2 saturations in the 90s on 4 L/m per nasal cannula. He's been afebrile. Hemodynamically stable. Sputum culture negative. He remains on DuoNeb inhalations, Pulmicort inhalations, IV Solu- Medrol, empiric antibiotics in the form of azithromycin. Objective - Vital Signs Vital signs: Vital Signs Temp 97.9 F 05/26/18 12:02 Pulse 84 05/26/18 12:30 Resp 20 05/26/18 12:02 BP 141/67 05/26/18 12:02 Pulse Ox 94 L 05/26/18 12:02 Intake & Output 05/25/18 05/26/18 05/26/18 18:59 06:59 18:59 Other: Voiding Method Toilet # Voids 4 1 - Exam GENERAL EXAM: Alert, active, comfortable in no apparent distress. HEAD: Normocephalic. EYES: Normal reaction of pupils, equal size. NOSE: Clear with pink turbinates. THROAT: No erythema or exudates. NECK: No masses, no JVD. CHEST: No chest wall deformity. LUNGS: Equal air entry with end expiratory wheeze, diminished. CVS: S1 and S2 normal with no audible murmur, regular rhythm. ABDOMEN: No hepatosplenomegaly, normal bowel sounds, no guarding or rigidity. SPINE: No scoliosis or deformity SKIN: No rashes CENTRAL NERVOUS SYSTEM: No focal deficits, tone is normal in all 4 extremities. EXTREMITIES: There is no peripheral edema. No clubbing, no cyanosis. Peripheral pulses are intact. - Labs CBC & Chem 7: 05/23/18 08:40 05/23/18 08:40 Labs: Abnormal Lab Results - Last 24 Hours (Table) 05/25/18 05/25/18 05/26/18 Range/Units 16:39 19:59 06:58 POC Glucose (mg/dL) 168 H 207 H 151 H (75-99) mg/dL 05/26/18 Range/Units 11:00 POC Glucose (mg/dL) 150 H (75-99) mg/dL Microbiology - Last 24 Hours (Table) 05/24/18 09:35 Gram Stain - Final Sputum Sputum Culture - Final Assessment and Plan Assessment: Impression: #1 Acute on chronic hypoxic respiratory failure secondary to acute exacerbation of chronic obstructive pulmonary disease. #2 Anxiety and tremors secondary to above and possibly related to tobacco withdrawal. #3 Hypertension. #4 Hyperlipidemia. #5 Benign prostatic hypertrophy. #6 Gastroesophageal reflux disease. #7 History of CVA/TIA. #8 Coronary artery disease. #9 Osteoarthritis. #10 Irritable bowel syndrome. Plan: The patient was seen and evaluated by Dr. Santiago. The patient is back to his baseline as far as his pulmonary status is concerned. He could be discharged home on a prednisone taper, completed course of antibiotics, usual pulmonary medications. He should follow-up with Dr. Bravo in our office in 1 week. He is however encouraged to call sooner with any recurrence of symptoms or other questions or concerns. He is again educated regarding the importance of complete smoking cessation. NicoDerm patch remains. I, the cosigning physician, performed a history & physical examination of the patient. Lungs sounds end expiratory wheeze, diminished. Maintaining good O2 saturations in the 90s on 4 L/m per nasal cannula. I discussed the assessment and plan of care with my nurse practitioner, Radha Valenzuela. I attest to the above consultation as dictated by her.
--- NOTE | 2018-05-26 13:25 | P.DS ---
Providers Date of admission: 05/23/18 11:28 Expected date of discharge: 05/26/18 Attending physician: Braydon Arenas MD Consults: 05/23/18 11:28 Consult Physician Routine Consulting Provider: Avery Bravo Consult Reason/Comments: COPD exacerbation, CHF Do you want consulting provider notified?: Yes Primary care physician: [facility] Course: Discharge Diagnosis: Acute exacerbation of COPD Acute on chronic hypoxic, hypercapnic respiratory failure-now requiring home O2 Left upper lobe solitary pulmonary nodule-outpatient workup with Dr. Bravo with possible PET scan Coronary artery disease Hypertension Dyslipidemia BPH GERD Osteoarthritis Irritable bowel syndrome Hospital Course: Patient is a 67-year-old male past medical history of COPD, recently diagnosed with chronic respiratory failure and discharged home on home oxygen therapy on 05/22, prior TIA, hyperlipidemia, and hypertension who presented to the ER with complaints of shortness of breath and wheezing. In the ER he underwent an extensive evaluation. He was found to have negative troponin, chest x-ray showed no acute process, BNP was slightly elevated, and remainder of workup was negative. He was placed on BiPAP due to work of breathing and was ordered bronchodilators. He was admitted for acute exacerbation of COPD. On review he had a CT of the chest on 05/20 that showed a new left upper lobe nodule with tree-in-bud densities. He was continued on steroids and bronchodilators. Pulmonary was consulted and adjusted his bronchodilator regimen. He was also continued on Zithromax. He was requiring more oxygen than his home levels. He was slow to improve. By the morning of 05/26 his O2 requirements were significantly decreased. He was able to walk in the hallways without significant shortness of breath. He continued to require oxygen therapy. He was determined stable for discharge home. He will complete a course of prednisone. He has already completed his antibiotic course. His home inhaler regimen was optimized and he will now use his Symbicort twice a day every day and continue with his ipratropium via nebulizer 4 times a day and will use albuterol as needed. Pulmonary plans on outpatient PET/CT scan and his nodule is currently not amenable to biopsy. Patient seen and examined at bedside. As of breath much improved. Continues to have a nonproductive cough but this is improved. No chest pain. No diarrhea or constipation. No nausea or vomiting. Feels as though he is able to go home. Vital signs reviewed and stable. General: non toxic, no distress, appears at stated age Derm: Chronic wound left lower quadrant with a sharp, no warmth/exudate/erythema , warm, dry Head: atraumatic, normocephalic, symmetric Eyes: EOMI, no lid lag, anicteric sclera Mouth: no lip lesion, mucus membranes moist Cardiovascular: S1S2 reg, no murmur, positive posterior tibial pulse bilateral, Lungs: Rhonchi bilaterally, no rhonchi, no rales , no accessory muscle use Abdominal: soft, nontender to palpation, no guarding, no appreciable organomegaly Ext: no gross muscle atrophy, no edema, no contractures Neuro: CN II-XI grossly intact, no focal neuro deficits Psych: Alert, oriented, appropriate affect A total of 45 minutes of time were spent preparing this complex discharge summary . Pertinent Studies: Chest x-ray-no acute process Echocardiogram-ejection fraction 60-65% Patient Condition at Discharge: Stable Plan - Discharge Summary Discharge Rx Participant: No New Discharge Prescriptions: New Nicotine 14Mg/24Hr Patch [Habitrol] 1 patch TRANSDERM DAILY #30 patch predniSONE 0 mg PO DIRECTED #15 tab Continue Albuterol Sulfate [Proventil Hfa] 2 puff INHALATION RT-Q6H PRN PRN Reason: Shortness Of Breath HYDROcodone/APAP 10-325MG [[place] 10-325] 1 tab PO Q6H PRN PRN Reason: Pain Atenolol [Tenormin] 50 mg PO BID amLODIPine [Norvasc] 5 mg PO DAILY Albuterol Nebulized [Ventolin Nebulized] 2.5 mg INHALATION RT-Q6H Omeprazole [PriLOSEC] 20 mg PO BID Niacin 500 mg PO HS Ipratropium Nebulized [Atrovent Nebulized] 0.5 mg INHALATION RT-Q6H #0 Gabapentin [Neurontin] 400 mg PO QID Naproxen 500 mg PO BID PRN PRN Reason: PAIN/INFLAMMATION Simvastatin [Zocor] 40 mg PO HS Multivitamins, Thera [Multivitamin (formulary)] 1 tab PO DAILY Tamsulosin HCl [Flomax] 0.4 mg PO HS Cyclobenzaprine [Flexeril] 10 mg PO TID PRN #0 PRN Reason: Muscle Spasm Changed Budesonide-Formot 160-4.5 Mcg [Symbicort 160-4.5 Mcg Inhaler] 1 puff INHALATION RT-BID PRN #0 PRN Reason: Wheezing Discontinued Azithromycin [Zithromax] 500 mg PO DAILY #3 tab predniSONE 40 mg PO DAILY #10 tab Discharge Medication List Albuterol Sulfate [Proventil Hfa] 2 puff INHALATION RT-Q6H PRN 12/01/15 [History ] Atenolol [Tenormin] 50 mg PO BID 12/01/15 [History] HYDROcodone/APAP 10-325MG [[place] 10-325] 1 tab PO Q6H PRN 12/01/15 [History] amLODIPine [Norvasc] 5 mg PO DAILY 12/01/15 [History] Albuterol Nebulized [Ventolin Nebulized] 2.5 mg INHALATION RT-Q6H 06/25/16 [ History] Niacin 500 mg PO HS 06/25/16 [History] Omeprazole [PriLOSEC] 20 mg PO BID 06/25/16 [History] Ipratropium Nebulized [Atrovent Nebulized] 0.5 mg INHALATION RT-Q6H #0 06/26/16 [Rx] Gabapentin [Neurontin] 400 mg PO QID 05/19/18 [History] Multivitamins, Thera [Multivitamin (formulary)] 1 tab PO DAILY 05/19/18 [History ] Naproxen 500 mg PO BID PRN 05/19/18 [History] Simvastatin [Zocor] 40 mg PO HS 05/19/18 [History] Tamsulosin HCl [Flomax] 0.4 mg PO HS 05/19/18 [History] Cyclobenzaprine [Flexeril] 10 mg PO TID PRN #0 05/22/18 [Rx] Budesonide-Formot 160-4.5 Mcg [Symbicort 160-4.5 Mcg Inhaler] 1 puff INHALATION RT-BID PRN #0 05/26/18 [Rx] Nicotine 14Mg/24Hr Patch [Habitrol] 1 patch TRANSDERM DAILY #30 patch 05/26/18 [ Rx] predniSONE 0 mg PO DIRECTED #15 tab 05/26/18 [Rx] Follow up Appointment(s)/Referral(s): Avery Bravo DO [Doctor of Osteopathic Medicine] - 1 Week David Suazo MD [Primary Care Provider] - 1-2 days Activity/Diet/Wound Care/Special Instructions: Hearth healthy diet Activity as tolerated Discharge Disposition: HOME SELF-CARE
== END 2018-05-26 14:40 | disposition home or self-care (01) | DRG 190 ==
LOC: EC 08:12 → 3SCARD 11:28 → 3NMEDONC 05-24 11:29
PROVIDERS: ADMIT Family Medicine; ATTEND Family Medicine
PROC: 5A09357 Assistance with Respiratory Ventilation, Less than 24 Consecutive Hours, Continuous Positive Airway Pressure (ICD-10-PCS; principal; 2018-05-23)
DX: J44.1 Chronic obstructive pulmonary disease with (acute) exacerbation (principal); J96.21 Acute and chronic respiratory failure with hypoxia; J96.22 Acute and chronic respiratory failure with hypercapnia; J18.9 Pneumonia, unspecified organism; E87.3 Alkalosis; R91.1 Solitary pulmonary nodule; I25.10 Atherosclerotic heart disease of native coronary artery without angina pectoris; K21.9 Gastro-esophageal reflux disease without esophagitis; M19.90 Unspecified osteoarthritis, unspecified site; K58.9 Irritable bowel syndrome, unspecified; N40.0 Benign prostatic hyperplasia without lower urinary tract symptoms; Z99.81 Dependence on supplemental oxygen; E78.5 Hyperlipidemia, unspecified; Z86.73 Personal history of transient ischemic attack (TIA), and cerebral infarction without residual deficits; I11.0 Hypertensive heart disease with heart failure; I50.9 Heart failure, unspecified; F17.210 Nicotine dependence, cigarettes, uncomplicated; H57.9 Unspecified disorder of eye and adnexa; K44.9 Diaphragmatic hernia without obstruction or gangrene; H81.8X9 Other disorders of vestibular function, unspecified ear; H93.13 Tinnitus, bilateral; Z98.41 Cataract extraction status, right eye; Z96.652 Presence of left artificial knee joint; Z80.1 Family history of malignant neoplasm of trachea, bronchus and lung; Z79.899 Other long term (current) drug therapy; Z79.51 Long term (current) use of inhaled steroids; Z79.1 Long term (current) use of non-steroidal anti-inflammatories (NSAID); Z79.52 Long term (current) use of systemic steroids; Z88.8 Allergy status to other drugs, medicaments and biological substances; F41.9 Anxiety disorder, unspecified; J44.0 Chronic obstructive pulmonary disease with (acute) lower respiratory infection
CPT/HCPCS: 36415; 36600; 71045; 80053; 82550; 82553; 82805; 83036; 83735; 83880; 84484; 85025; 85610; 85730; 87070; 87205; 87449; 93005; 93306; 94640; 94660; 94760; 96365; 96374; 96375; 96376; 99291

== ENCOUNTER → 2018-06-27 | Outpatient (CLI) | payer MEDICARE, BC ==
--- NOTE | 2018-06-27 15:37 | PE ---
EXAMINATION TYPE: PET CT fusion skull to thigh DATE OF EXAM: 06/27/2018 COMPARISON: Chest CT May 20, [address] October 07, 2011 HISTORY: Solitary pulmonary nodule, abnormal CT. TECHNIQUE: Following the intravenous administration of 15.53 mCi of F-18 FDG, whole body images are performed from the skull base to the midthigh. Images are reviewed on the computer in the coronal, a xial, and sagittal planes. Reconstructed rotating images are created on independent workstation and reviewed on the computer. A noncontrast CT is performed in conjunction with the PET scan. SCAN: Initial Scan FINDINGS: SKULL BASE AND NECK: No suspicious hypermetabolic uptake is present. CHEST, MEDIASTINUM, AND HILAR REGION: Mild underlying emphysematous change is redemonstrated. There i s persistent thin-walled cyst posteriorly inferiorly left upper lobe axial image 100. There is redemo nstration of 10 x 8 mm nodule along inferior left lateral margin axial image 102 without abnormal hyp ermetabolic uptake on PET images. Worsening reticulonodular infiltrates posterior inferior right upper lobe identified near axial image [address] Tree-in-bud opacities remain present in the right middle and lower lobe near d iaphragm. Worsening tree-in-bud opacities left lung base are noted. Correlate for atypical infection processes including hypersensitivity pneumonitis. No areas of abnormal hypermetabolic uptake however present. ABDOMEN AND PELVIS: No suspicious hypermetabolic uptake is seen. OSSEOUS STRUCTURES: No suspicious hypermetabolic uptake is noted. OTHER CT: There is medial deviation along course to the bilateral carotid arteries with moderate calc ified plaque centered at bilateral carotid bulbs. There is moderate to severe 3 vessel coronary calcification which is noted marker for coronary artery disease. Liver remains diffusely low dense relative to spleen consistent with diffuse fatty infiltration. There are surgical change in the lumbar spine redemonstrated causing streak artifact. There is stimul ator device in the left anterior abdominal wall noted. There is moderate to severe atherosclerotic change of aorta with some ectasia identified. No greater than 3 cm aneurysm is seen. There is ectatic prominence to bilateral common iliac arteries. There is moderate sized fat-containing right inguinal hernia. IMPRESSION: No suspicious hypermetabolic uptake identified to suggest malignancy with particular atte ntion to the developing 1.0 cm nodule along wall of thin-walled cyst in the left lung. Would advise C T follow-up in 6 months time to reassess. Increasing tree in bud type opacities in the bilateral lung base is noted, correlate clinically for hypersensitivity pneumonitis or atypical infections.
== END | disposition home or self-care (01) ==
LOC: RADPETMAIN 11:11
PROVIDERS: ATTEND Internal Medicine Critical Care Medicine
DX: R91.1 Solitary pulmonary nodule (principal)
CPT/HCPCS: 78815; A9552

== ENCOUNTER 2018-10-01 10:16 | Inpatient (IN) | payer MEDICARE, BC ==
[2018-10-01] MEDS ORDERED: ACETAMINOPHEN TAB 325 MG TAB PO STA (11:14)
--- NOTE | 2018-10-01 11:17 | ED ---
SOB HPI - General Chief Complaint: Shortness of Breath Stated Complaint: low oxygen, fever Time Seen by Provider: 10/01/18 10:51 Source: patient Mode of arrival: wheelchair Limitations: no limitations - History of Present Illness Initial Comments: This patient is a 68-year-old man who presents with complaint that he is experiencing some shortness of breath, cough, and noted a fever. He is concerned about a recurrence of pneumonia as he had just finished a course of antibiotics for that "a couple of days ago." The patient is stating that the symptoms had come on over the course of the night. He states the cough has some associated thick sputum. He denies pain. MD Complaint: shortness of breath, cough Onset/Timin -: days(s) Improves With: nothing Worsens With: nothing Associated Symptoms: fever, cough, sputum production, other (Shortness of breath ) - Related Data Home Medications Medication Instructions Recorded Confirmed Albuterol Sulfate [Proventil Hfa] 2 puff INHALATION RT-Q6H PRN 12/01/15 10/01/18 Atenolol [Tenormin] 50 mg PO BID 12/01/15 10/01/18 HYDROcodone/APAP 10-325MG [[place] 1 tab PO Q6H PRN 12/01/15 10/01/18 10-325] amLODIPine [Norvasc] 5 mg PO DAILY 12/01/15 10/01/18 Albuterol Nebulized [Ventolin 2.5 mg INHALATION RT-BID PRN 06/25/16 10/01/18 Nebulized] Niacin 500 mg PO HS 06/25/16 10/01/18 Omeprazole [PriLOSEC] 40 mg PO BID 06/25/16 10/01/18 Gabapentin [Neurontin] 400 mg PO QID 05/19/18 10/01/18 Multivitamins, Thera [Multivitamin 1 tab PO DAILY 05/19/18 10/01/18 (formulary)] Naproxen 500 mg PO BID PRN 05/19/18 10/01/18 Simvastatin [Zocor] 40 mg PO HS 05/19/18 10/01/18 Tamsulosin HCl [Flomax] 0.4 mg PO HS 05/19/18 10/01/18 Aspirin/Dipyridamole (Unknown) 1 cap PO BID 10/01/18 10/01/18 Previous Rx's Medication Instructions Recorded Ipratropium Nebulized [Atrovent 0.5 mg INHALATION RT-Q6H #0 06/26/16 Nebulized 0.2 MG/ML] Cyclobenzaprine [Flexeril] 10 mg PO TID PRN #0 05/22/18 Budesonide-Formot 160-4.5 Mcg 1 puff INHALATION RT-BID PRN #0 05/26/18 [Symbicort 160-4.5 Mcg Inhaler] Allergies Allergy/AdvReac Type Severity Reaction Status Date / Time montelukast sodium Allergy Itching Verified 10/01/18 11:17 [From [email or web address]] Review of Systems ROS Statement: Those systems with pertinent positive or pertinent negative responses have been documented in the HPI. ROS Other: All systems not noted in ROS Statement are negative. Constitutional: Reports: fever Respiratory: Reports: cough, dyspnea. 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 History of Any Multi-Drug Resistant Organisms: None Reported Past Surgical History: Adenoidectomy, Back Surgery, Heart Catheterization, Hernia Repair, Joint Replacement, Orthopedic Surgery, Tonsillectomy Additional Past Surgical History / Comment(s): L knee replacement, back surgery x2-failed fusion and 2 rods in lower back, L/R cataract surgery, bilat. rib removal (cervical), carpal tunnel R wrist, colonoscopy, L elbow surgery, abdominal hernia repair, 3 R inguinal hernia repairs, L inguinal hernia repair, rectal cystectomy.pain pump(ms) implanted -2017 Past Anesthesia/Blood Transfusion Reactions: Previous Problems w/ Anesthesia Additional Past Anesthesia/Blood Transfusion Reaction / Comment(s): With first surgery became belligerent when waking up. Past Psychological History: No Psychological Hx Reported Smoking Status: Current every day smoker - Past Family History Mother Family Medical History: No Reported History Additional Family Medical History / Comment(s): Mother was healthy and lived to be 88 or 89yrs old. Father Family Medical History: Cancer Additional Family Medical History / Comment(s): Father of lung cancer in his early 70's. General Exam Limitations: no limitations General appearance: alert, in distress (Mildly tachypneic) Head exam: Present: atraumatic, normocephalic Eye exam: Present: normal appearance Neck exam: Present: normal inspection Respiratory exam: Present: respiratory distress, rales. Absent: wheezes, rhonchi, stridor, accessory muscle use, decreased breath sounds, prolonged expiratory Cardiovascular Exam: Present: regular rate, normal rhythm, normal heart sounds. Absent: systolic murmur, diastolic murmur, rubs, gallop GI/Abdominal exam: Present: soft, other (The patient does have a small area of erythema near the implantation site for his pain pump, but they state that this has been present more or less since it was implanted in February.). Absent: distended, tenderness, guarding, rebound, rigid, mass Extremities exam: Present: normal inspection, normal capillary refill. Absent: pedal edema, calf tenderness Back exam: Present: normal inspection Neurological exam: Present: alert Skin exam: Present: warm, dry, intact, erythema (Small area of abdominal wall). Absent: rash Course Vital Signs 10/01/18 10/01/18 10/01/18 10:46 11:13 11:25 Temperature 101.1 F H Pulse Rate 98 93 Respiratory 24 20 20 Rate Blood Pressure 116/47 96/45 O2 Sat by Pulse 89 L 93 L Oximetry Medical Decision Making - EKG Data -: EKG Interpreted by [place] EKG shows normal: sinus rhythm, axis (Normal), intervals (Normal), QRS complexes (Normal), ST-T waves (Normal) Rate: normal (Rate 99 bpm) Interpretation: normal EKG Disposition Referrals: David Suazo MD [Primary Care Provider] - 1-2 days
--- NOTE | 2018-10-01 12:13 | XR ---
EXAMINATION TYPE: XR chest 2V DATE OF EXAM: 10/01/2018 COMPARISON: Chest x-ray May 23, 2018. CT chest May 20, 2018. PET/CT June 27, 2018. HISTORY: Shortness of breath and fever. TECHNIQUE: Frontal and lateral views of the chest are obtained. FINDINGS: There is new faint left basilar opacity. Right lung is clear. No pleural effusion or pneu mothorax is seen bilaterally. The cardiac silhouette size is stable and upper limits of normal. The osseous structures are intact. IMPRESSION: New Left basilar acute infiltrate and/or atelectasis.
[2018-10-01 12:22] LABS: Basophils % (A) 0 %; Eosinophils # (A) 0.1 k/uL (0-0.7); Eosinophils % (A) 0 %; HCT 35.2 % (39.0-53.0); HGB 11.3 gm/dL (13.0-17.5); Hypochromasia Slight; Lymphocytes # (A) 0.7 k/uL (1.0-4.8); Lymphocytes % (A) 5 %; MCH 31.6 pg (25.0-35.0); MCHC 32.1 g/dL (31.0-37.0); MCV 98.5 fL (80.0-100.0); Mean Platelet Volume 6.6; Monocytes # (A) 0.5 k/uL (0-1.0); Monocytes % (A) 3 %; Neutrophils # (A) 13.6 k/uL (1.3-7.7); Neutrophils % (A) 90 %; Platelet Count 288 k/uL (150-450); RBC 3.57 m/uL (4.30-5.90); RDW 14.3 % (11.5-15.5); WBC 15.1 k/uL (3.8-10.6)
[2018-10-01 12:30] LABS: Albumin 3.4 g/dL (3.5-5.0); Calcium 9.6 mg/dL (8.4-10.2); Potassium 4.9 mmol/L (3.5-5.1); Total Bilirubin 0.4 mg/dL (0.2-1.3); Total Protein 6.4 g/dL (6.3-8.2)
[2018-10-01] MEDS ORDERED: LEVOFLOXACIN 750MG-D5W PMX 750 MG in DEXTROSE/WATER 1 150ML.BAG IVPB STA (13:21)
[2018-10-01] MEDS ORDERED: PIPERACILLIN-TAZOBACTAM 3.375 GM in SODIUM CHLORIDE 0.9% 100 ML IVPB STA (13:21)
[2018-10-01] MEDS ORDERED: ALBUTEROL NEBULIZED 2.5 MG/3 ML INHALATION PRN (14:26)
[2018-10-01] MEDS ORDERED: PNEUMONIA PROTOCOL UTILIZED 1 EACH MISC PO PRN (14:26)
[2018-10-01] MEDS ORDERED: SODIUM CHLORIDE 0.9% 2,500 ML IV ONE (14:32)
[2018-10-01 16:01] LABS: Appearance,Urine Clear (Clear); Bilirubin,Urine Negative (Negative); Blood,Urine Negative (Negative); Color,Urine Yellow; Glucose,Urine (UA) Negative (Negative); Ketones,Urine Negative (Negative); Leukocyte Esterase,Urine Negative (Negative); Nitrite,Urine Negative (Negative); PH, Urine 5.5 (5.0-8.0); Protein,Urine Trace (Negative); Specific Gravity,Urine 1.016 (1.001-1.035); Urobilinogen,Urine <2.0 mg/dL (<2.0)
[2018-10-01] MEDS: IPRATROPIUM-ALBUTEROL 3 ML NEB INHALATION SCH ×2 (16:17→19:59)
[2018-10-01] MEDS: SODIUM CHLORIDE 0.9% 1,000 ML IV SCH (16:44)
[2018-10-01] MEDS ORDERED: NALOXONE 0.4 MG/ML 1 ML VIAL IV PRN (17:10)
--- NOTE | 2018-10-01 17:45 | P.HPIM ---
History of Present Illness H&P Date: 10/01/18 Chief Complaint: Shortness of breath, cough 68-year-old male with PMH of CAD, COPD, hypertension, history of CVA presents to the ED for generally feeling unwell. of the patient is reporting majority of the history. The the patient reports waking up this morning and attempting to wake up the patient, states that he was "out of it this morning". also noted that the patient felt warm, measured a temperature of 102F. This prompted her to take the patient to his primary care provider's clinic. In the clinic, patient was noted to be de-satting in the 80s. Patient was brought to the hospital from PCPs clinic. Patient reports that he is at a cough over the past couple weeks that is productive of dark yellow sputum. Patient reports chronic smoker cough that usually presents with clear sputum. Patient reports stopping smoking since May. He had smoked 2 packs of cigarettes daily since the age of 14. He denies any alcohol or illicit drug use. Patient denies any headaches, lower extremity edema, chest pain, shortness of breath, palpitations, changes in urination or bowel habits. No changes in appetite or weight. Of note he does endorse 1 episode of nonbilious nonbloody nausea and vomiting today. Of note, patient reports having pain pump installed in his abdomen. He reports that the skin around the abdomen become more reddened and has failed to close properly. In the ED, CBC showed a leukocytosis of 15.1. Patient also noted to have anemia with a hemoglobin of 11.3. CMP was unremarkable except for a glucose of 142. Initial lactic acid was 2.4. Urinalysis showed 40 trace protein. Influenza was negative. Chest x-ray shows new left basilar acute infiltrate. Patient is admitted for community-acquired pneumonia, IV antibiotics, pulmonology on consult. 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 History of Any Multi-Drug Resistant Organisms: None Reported Past Surgical History: Adenoidectomy, Back Surgery, Heart Catheterization, Hernia Repair, Joint Replacement, Orthopedic Surgery, Tonsillectomy Additional Past Surgical History / Comment(s): L knee replacement, back surgery x2-failed fusion and 2 rods in lower back, L/R cataract surgery, bilat. rib removal (cervical), carpal tunnel R wrist, colonoscopy, L elbow surgery, abdominal hernia repair, 3 R inguinal hernia repairs, L inguinal hernia repair, rectal cystectomy.pain pump(ms) implanted -2017 Past Anesthesia/Blood Transfusion Reactions: Previous Problems w/ Anesthesia Additional Past Anesthesia/Blood Transfusion Reaction / Comment(s): With first surgery became belligerent when waking up. Past Psychological History: No Psychological Hx Reported Smoking Status: Current every day smoker - Past Family History Mother Family Medical History: No Reported History Additional Family Medical History / Comment(s): Mother was healthy and lived to be 88 or 89yrs old. Father Family Medical History: Cancer Additional Family Medical History / Comment(s): Father of lung cancer in his early 70's. Medications and Allergies Home Medications Medication Instructions Recorded Confirmed Type Albuterol Sulfate [Proventil Hfa] 2 puff INHALATION RT-Q6H PRN 12/01/15 History Atenolol [Tenormin] 50 mg PO BID 12/01/15 10/01/18 History HYDROcodone/APAP 10-325MG [[place] 1 tab PO Q6H PRN 12/01/15 10/01/18 History 10-325] amLODIPine [Norvasc] 5 mg PO DAILY 12/01/15 10/01/18 History Albuterol Nebulized [Ventolin 2.5 mg INHALATION RT-BID PRN 06/25/16 10/01/18 History Nebulized] Niacin 500 mg PO HS 06/25/16 10/01/18 History Omeprazole [PriLOSEC] 40 mg PO BID 06/25/16 10/01/18 History Ipratropium Nebulized [Atrovent 0.5 mg INHALATION RT-Q6H #0 06/26/16 10/01/18 Rx Nebulized 0.2 MG/ML] Gabapentin [Neurontin] 400 mg PO QID 05/19/18 10/01/18 History Multivitamins, Thera [Multivitamin 1 tab PO DAILY 05/19/18 10/01/18 History (formulary)] Naproxen 500 mg PO BID PRN 05/19/18 10/01/18 History Simvastatin [Zocor] 40 mg PO HS 05/19/18 10/01/18 History Tamsulosin HCl [Flomax] 0.4 mg PO HS 05/19/18 10/01/18 History Cyclobenzaprine [Flexeril] 10 mg PO TID PRN #0 05/22/18 10/01/18 Rx Budesonide-Formot 160-4.5 Mcg 1 puff INHALATION RT-BID PRN #0 05/26/18 10/01/18 Rx [Symbicort 160-4.5 Mcg Inhaler] Aspirin/Dipyridamole (Unknown) 1 cap PO BID 10/01/18 10/01/18 History Allergies Allergy/AdvReac Type Severity Reaction Status Date / Time montelukast sodium Allergy Itching Verified 10/01/18 11:17 [From [facility]] Physical Exam Vitals: Vital Signs Temp Pulse Pulse Resp BP BP Pulse Ox 10/01/18 16:59 97.9 F 85 22 119/51 97 10/01/18 16:40 98.4 F 84 16 121/45 96 10/01/18 15:52 86 18 106/52 95 10/01/18 14:55 80 16 90/53 96 10/01/18 13:18 98.2 F 10/01/18 13:15 66 16 93/51 95 10/01/18 11:55 94 18 107/47 93 L 10/01/18 11:48 92 16 107/47 95 10/01/18 11:25 93 20 96/45 93 L 10/01/18 11:13 20 10/01/18 10:46 101.1 F H 98 24 116/47 89 L Intake and Output 10/01/18 10/01/18 10/01/18 06:59 14:59 22:59 Other: Weight 112.945 kg General: [non toxic], [no distress], [appears at stated age] Derm: [warm], [dry] Head: [atraumatic], [normocephalic], [symmetric] Eyes: [EOMI], [no lid lag], [anicteric sclera] Mouth: [no lip lesion], [mucus membranes moist] Cardiovascular: [S1S2 reg], [no murmur], [positive DP pulse bilateral] Lungs: [CTA bilateral], [ rales bilaterally] , [no accessory muscle use] Abdominal: [soft], [ nontender to palpation], [no guarding], [no appreciable organomegaly], [well-healed surgical scar with erythema and palpable pain pump in the left sided abdomen, nontender to palpation] Ext: [no gross muscle atrophy], [no edema], [no contractures] Neuro: [ CN II-XI grossly intact], [no focal neuro deficits] Psych: [Alert], [oriented], [appropriate affect] Results CBC & Chem 7: 10/01/18 11:50 10/01/18 11:50 Labs: Abnormal Lab Results - Last 24 Hours (Table) 10/01/18 10/01/18 10/01/18 Range/Units 11:50 11:50 11:50 WBC 15.1 H (3.8-10.6) k/uL RBC 3.57 L (4.30-5.90) m/uL Hgb 11.3 L (13.0-17.5) gm/dL Hct 35.2 L (39.0-53.0) % Neutrophils # 13.6 H (1.3-7.7) k/uL Lymphocytes # 0.7 L (1.0-4.8) k/uL Glucose 142 H (74-99) mg/dL Plasma Lactic Acid Isaac 2.4 H* (0.7-2.0) mmol/L Albumin 3.4 L (3.5-5.0) g/dL Urine Protein (Negative) 10/01/18 10/01/18 Range/Units 15:47 Unknown WBC (3.8-10.6) k/uL RBC (4.30-5.90) m/uL Hgb (13.0-17.5) gm/dL Hct (39.0-53.0) % Neutrophils # (1.3-7.7) k/uL Lymphocytes # (1.0-4.8) k/uL Glucose (74-99) mg/dL Plasma Lactic Acid Isaac 2.4 H* (0.7-2.0) mmol/L Albumin (3.5-5.0) g/dL Urine Protein Trace H (Negative) Thrombosis Risk Factor Assmnt - Choose All That Apply Any of the Below Risk Factors Present?: Yes Each Factor Represents 1 point: Abnormal pulmonary function (COPD), Obesity ( BMI >25) Other Risk Factors: Yes Each Risk Factor Represents 2 Points: Age 61-74 years Thrombosis Risk Factor Assessment Total Risk Factor Score: 4 Thrombosis Risk Factor Assessment Level: Moderate Risk Assessment and Plan Assessment: Assessment and Plan 1. Sepsis likely secondary to community-acquired pneumonia 2. Community acquired pneumonia 3. COPD 4. History of CVA and CAD 5. Hypertension 6. DVT and GI prophylaxis 1. Patient meets sepsis criteria. Elevated lactic acid at 2.4, O2 saturation 89% on room air, BP as low as 90 systolic and 45 diastolic responding to fluids. Chest x-ray showing concerns for pneumonia. Continue IV antibiotics. Continue normal saline at 100 mL/h. Tylenol as needed for fever. Will follow lactic acid and blood cultures. 2. As seen on chest x-ray. Continue levofloxacin IV, Zosyn IV. Will follow sputum culture. O2 per nasal cannula to maintain an oxygen saturation greater than 92%. Optimize COPD medications. Follow pulmonology consult. Repeat chest x-ray in the a.m. 3. Albuterol or DuoNeb treatments as needed for shortness of breath or wheezing. Continue Symbicort. Maintain oxygen saturation greater than 92%. Follow pulmonology consult. 4. Continue Lipitor 20 mg by mouth at bedtime. Will start aspirin. 5. BP 119/51. Continue amlodipine by mouth daily. Monitor vitals, adjust medications as necessary. 6. Heparin subcutaneously. Protonix by mouth. Patient admitted for sepsis likely secondary to community-acquired pneumonia. Pulmonology on consult.
[2018-10-01 18:06] VITALS: BMI 34.7
[2018-10-01] MEDS: GABAPENTIN 400 MG CAP PO SCH ×2 (18:13→21:42)
[2018-10-01] MEDS: PANTOPRAZOLE 40 MG TABLET PO SCH (18:13)
[2018-10-01] MEDS: SYMBICORT 160-4.5 MCG INHALER INHALATION SCH (19:59)
[2018-10-01] MEDS: HEPARIN SODIUM,PORCINE 5,000 UNIT/ML 1 ML VIAL SQ SCH (21:42)
[2018-10-01] MEDS: ATENOLOL 50 MG TAB PO SCH (21:42)
[2018-10-01] MEDS: TAMSULOSIN 0.4 MG CAP.ER.24H PO SCH (21:42)
[2018-10-01] MEDS: ATORVASTATIN 20 MG TAB PO SCH (21:42)
[2018-10-01] MEDS: NIACIN TR 500 MG CAPLET PO SCH (21:42)
[2018-10-01] MEDS: DIPYRIDAMOLE-ASPIRIN 200-25 MG 1 EACH CPMP.12HR PO SCH (21:42)
[2018-10-01] MEDS: HYDROcodone/APAP 10-325MG 1 EACH TAB PO PRN (21:54)
[2018-10-02] MEDS: PIPERACILLIN-TAZOBACTAM 3.375 GM in SODIUM CHLORIDE 0.9% 100 ML IVPB SCH ×3 (00:05→16:41)
[2018-10-02] MEDS: SODIUM CHLORIDE 0.9% 1,000 ML IV SCH ×2 (00:07→10:34)
[2018-10-02] MEDS: GABAPENTIN 400 MG CAP PO SCH ×4 (07:18→22:24)
[2018-10-02] MEDS: ASPIRIN 81 MG PO SCH (07:18)
[2018-10-02] MEDS: DIPYRIDAMOLE-ASPIRIN 200-25 MG 1 EACH CPMP.12HR PO SCH ×2 (07:18→22:24)
[2018-10-02] MEDS: PANTOPRAZOLE 40 MG TABLET PO SCH ×2 (07:19→17:32)
[2018-10-02] MEDS: HEPARIN SODIUM,PORCINE 5,000 UNIT/ML 1 ML VIAL SQ SCH ×2 (07:19→22:24)
[2018-10-02] MEDS: ATENOLOL 50 MG TAB PO SCH ×2 (07:19→22:24)
[2018-10-02] MEDS: amLODIPine 5 MG TAB PO SCH (07:19)
[2018-10-02] MEDS: SYMBICORT 160-4.5 MCG INHALER INHALATION SCH ×2 (08:07→20:06)
[2018-10-02] MEDS: IPRATROPIUM-ALBUTEROL 3 ML NEB INHALATION SCH ×4 (08:07→20:06)
[2018-10-02 09:11] LABS: Basophils % (A) 0 %; Eosinophils # (A) 0.2 k/uL (0-0.7); Eosinophils % (A) 2 %; HCT 32.8 % (39.0-53.0); HGB 10.1 gm/dL (13.0-17.5); Hypochromasia Moderate; Lymphocytes % (A) 9 %; MCH 31.1 pg (25.0-35.0); MCHC 30.9 g/dL (31.0-37.0); MCV 100.7 fL (80.0-100.0); Macrocytosis Slight; Mean Platelet Volume 6.7; Monocytes # (A) 0.5 k/uL (0-1.0); Monocytes % (A) 4 %; Neutrophils # (A) 9.6 k/uL (1.3-7.7); Neutrophils % (A) 83 %; Platelet Count 243 k/uL (150-450); RBC 3.26 m/uL (4.30-5.90); RDW 14.1 % (11.5-15.5); WBC 11.5 k/uL (3.8-10.6)
[2018-10-02] MEDS: HYDROcodone/APAP 10-325MG 1 EACH TAB PO PRN ×2 (11:37→17:32)
--- NOTE | 2018-10-02 11:38 | P.PN ---
Subjective Progress Note Date: 10/02/18 Principal diagnosis: pneumonia Patient was seen and examined. No acute events overnight. Patient reports considerable improvement in his breathing and fatigue. He continues to complain of cough productive of dark yellow sputum.He denies any chest pain, shortness of breath or palpitations. Objective - Vital Signs Vital signs: Vital Signs Temp 97.6 F 10/02/18 07:32 Pulse 80 10/02/18 08:20 Resp 18 10/02/18 07:12 BP 119/63 10/02/18 07:32 Pulse Ox 97 10/02/18 07:32 Intake & Output 10/01/18 10/02/18 10/02/18 18:59 06:59 18:59 Intake Total 240 800 Output Total 1100 Balance 240 -300 Weight 112.945 kg Intake: Intake, IV Titration 800 Amount Sodium Chloride 0.9% 1, 800 000 ml @ 100 mls/hr IV . Q10H [facility] Rx#:[id number] Oral 240 Output: Urine 1100 Other: Voiding Method Urinal # Voids 1 - Exam General: [non toxic], [no distress], [appears at stated age] Derm: [warm], [dry] Head: [atraumatic], [normocephalic], [symmetric] Eyes: [EOMI], [no lid lag], [anicteric sclera] Mouth: [no lip lesion], [mucus membranes moist] Cardiovascular: [S1S2 reg], [no murmur], [positive DP pulse bilateral] Lungs: [coarse breath sounds bilateral], [ rales bilaterally] , [no accessory muscle use] Abdominal: [soft], [ nontender to palpation], [no guarding], [no appreciable organomegaly], [well-healed surgical scar with erythema and palpable pain pump in the left sided abdomen, nontender to palpation] Ext: [no gross muscle atrophy], [1+ pitting edema], [no contractures] Neuro: [no focal neuro deficits] Psych: [Alert], [oriented], [appropriate affect] - Labs CBC & Chem 7: 10/02/18 08:23 10/01/18 11:50 Labs: Abnormal Lab Results - Last 24 Hours (Table) 10/01/18 10/01/18 10/01/18 Range/Units 11:50 11:50 11:50 WBC 15.1 H (3.8-10.6) k/uL RBC 3.57 L (4.30-5.90) m/uL Hgb 11.3 L (13.0-17.5) gm/dL Hct 35.2 L (39.0-53.0) % MCV (80.0-100.0) fL MCHC (31.0-37.0) g/dL Neutrophils # 13.6 H (1.3-7.7) k/uL Lymphocytes # 0.7 L (1.0-4.8) k/uL Glucose 142 H (74-99) mg/dL Plasma Lactic Acid Isaac 2.4 H* (0.7-2.0) mmol/L Albumin 3.4 L (3.5-5.0) g/dL Urine Protein (Negative) 10/01/18 10/01/18 10/02/18 Range/Units 15:47 Unknown 08:23 WBC 11.5 H (3.8-10.6) k/uL RBC 3.26 L (4.30-5.90) m/uL Hgb 10.1 L (13.0-17.5) gm/dL Hct 32.8 L (39.0-53.0) % MCV 100.7 H (80.0-100.0) fL MCHC 30.9 L (31.0-37.0) g/dL Neutrophils # 9.6 H (1.3-7.7) k/uL Lymphocytes # (1.0-4.8) k/uL Glucose (74-99) mg/dL Plasma Lactic Acid Isaac 2.4 H* (0.7-2.0) mmol/L Albumin (3.5-5.0) g/dL Urine Protein Trace H (Negative) Microbiology - Last 24 Hours (Table) 10/01/18 20:14 Gram Stain - Preliminary Sputum Sputum Culture - Preliminary Assessment and Plan Plan: Assessment and Plan 1. Sepsis likely secondary to community-acquired pneumonia 2. Community acquired pneumonia 3. COPD 4. History of CVA and CAD 5. Hypertension 6. DVT and GI prophylaxis 1. Patient meets sepsis criteria. Elevated lactic acid at 2.4, O2 saturation 89% on room air, BP as low as 90 systolic and 45 diastolic responding to fluids on admission. Chest x-ray showing concerns for pneumonia. Continue IV antibiotics. Continue normal saline at 100 mL/h. Tylenol as needed for fever. Repeat lactic acid negative. Will follow blood cultures. We'll follow echocardiogram results. 2. As seen on chest x-ray. Continue levofloxacin IV, Zosyn IV. Will follow sputum culture. O2 per nasal cannula to maintain an oxygen saturation greater than 92%. Optimize COPD medications. Follow pulmonology consult. Repeat chest x-ray in the a.m. 3. Albuterol or DuoNeb treatments as needed for shortness of breath or wheezing. Continue Symbicort. Maintain oxygen saturation greater than 92%. Follow pulmonology consult. 4. Continue Lipitor 20 mg by mouth at bedtime. Will start aspirin. 5. BP 119/63. Continue amlodipine by mouth daily. Monitor vitals, adjust medications as necessary. 6. Heparin subcutaneously. Protonix by mouth. Patient admitted for sepsis likely secondary to community-acquired pneumonia. Pulmonology on consult.
[2018-10-02] MEDS: methylPREDNISolone SOD SUCCI 125 MG/2 ML VIAL IV SCH ×2 (11:39→17:33)
--- NOTE | 2018-10-02 13:58 | P.CNPUL ---
History of Present Illness Consult date: 10/02/18 Requesting physician: Davonte Bundy Reason for consult: dyspnea, cough, COPD Chief complaint: Shortness of breath, cough, congestion, fever History of present illness: This is a 67-year-old white male patient of Dr. Suazo, with past medical history of CAD, CVA/TIA, GERD/reflux, hypertension, hyperlipidemia, osteoarthritis, BPH, IBS. Patient has COPD, he wears oxygen at bedtime, patient follows with Dr. Bravo in the pulmonary clinic. He has 56 years of smoking history of 2-3 packs a day, the patient quit smoking in May 2018. He is on DuoNeb nebulized treatments at home, Symbicort. Patient has baseline FEV1 of 0.59 L, or 48% of predicted, and diffusion capacity of 63% of predicted. Patient also has a lung nodule in the left upper lobe measuring 1 cm , and the PET scan was completed on 06/27/2018, showed no suspicious hypermetabolic uptake suggest malignancy in regards to the developing 1 cm nodule along the wall in the left lung. This is being followed with outpatient CT chest every 6 months. On 10/02/2018 patient was sent to the emergency department from Dr. Suazo's office, where patient presented with complaints of fever, cough, congestion. Symptoms started in the morning on 2018. Patient denies any sick contacts , his fever was as high as 10 2F at home, and patient was also starting to get disoriented, and hence was sent to the hospital with concern of sepsis. Chest x -ray was completed in the emergency department and showed left basilar infiltrate and/or atelectasis. Labs showed leukocytosis, without labor blood cell count of 15.1, hemoglobin of 11.3, electrodes and renal profile were within normal limits, plasma lactic acid was elevated at 2.4, Influenza screen was negative. Urinalysis was noninfected. She was febrile presentation with a temp of 101.1F. Patient was started on Levaquin and Zosyn, he was given 2.5 L in IV fluid boluses, his maintenance IV fluid is running at 100 ML per hour. Breathing treatments were started, patient did have toxemia, with pulse ox of 79 % on room air on presentation, and did have relative hypotension, with a systolic in the 90s, and diastolic pressure in the 40s and 50s. Preliminary Gram stain showed no organisms. Blood cultures pending. Review of Systems All systems: negative Constitutional: Reports lethargy, Reports malaise, Reports weakness, Denies chills, Denies fever Eyes: denies blurred vision, denies pain Ears, nose, mouth and throat: Denies headache, Denies sore throat Cardiovascular: Denies chest pain, Denies shortness of breath Respiratory: Reports congestion, Reports cough with sputum, Reports dyspnea, Reports hemoptysis, Reports home oxygen, Reports respiratory infections, Denies cough Gastrointestinal: Denies abdominal pain, Denies diarrhea, Denies nausea, Denies vomiting Musculoskeletal: Denies myalgias Integumentary: Denies pruritus, Denies rash Neurological: Reports change in mentation, Denies numbness, Denies weakness Psychiatric: Denies anxiety, Denies depression Endocrine: Denies fatigue, Denies weight change Past Medical History Past Medical History: Coronary Artery Disease (CAD), Chest Pain / Angina, COPD, CVA/TIA, Eye Disorder, GERD/Reflux, Hyperlipidemia, Hypertension, Osteoarthritis (OA), Prostate Disorder Additional Past Medical History / Comment(s): BPH, 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 History of Any Multi-Drug Resistant Organisms: None Reported Past Surgical History: Adenoidectomy, Back Surgery, Heart Catheterization, Hernia Repair, Joint Replacement, Orthopedic Surgery, Tonsillectomy Additional Past Surgical History / Comment(s): L knee replacement, back surgery x2-failed fusion and 2 rods in lower back, L/R cataract surgery, bilat. rib removal (cervical), carpal tunnel R wrist, colonoscopy, L elbow surgery, abdominal hernia repair, 3 R inguinal hernia repairs, L inguinal hernia repair, rectal cystectomy.pain pump(ms) implanted -2017 Past Anesthesia/Blood Transfusion Reactions: Previous Problems w/ Anesthesia Additional Past Anesthesia/Blood Transfusion Reaction / Comment(s): With first surgery became belligerent when waking up. Past Psychological History: No Psychological Hx Reported Smoking Status: Current every day smoker - Past Family History Mother Family Medical History: No Reported History Additional Family Medical History / Comment(s): Mother was healthy and lived to be 88 or 89yrs old. Father Family Medical History: Cancer Additional Family Medical History / Comment(s): Father of lung cancer in his early 70's. Medications and Allergies Home Medications Medication Instructions Recorded Confirmed Type Albuterol Sulfate [Proventil Hfa] 2 puff INHALATION RT-Q6H PRN 12/01/15 History Atenolol [Tenormin] 50 mg PO BID 12/01/15 10/01/18 History HYDROcodone/APAP 10-325MG [[place] 1 tab PO Q6H PRN 12/01/15 10/01/18 History 10-325] amLODIPine [Norvasc] 5 mg PO DAILY 12/01/15 10/01/18 History Albuterol Nebulized [Ventolin 2.5 mg INHALATION RT-BID PRN 06/25/16 10/01/18 History Nebulized] Niacin 500 mg PO HS 06/25/16 10/01/18 History Omeprazole [PriLOSEC] 40 mg PO BID 06/25/16 10/01/18 History Ipratropium Nebulized [Atrovent 0.5 mg INHALATION RT-Q6H #0 06/26/16 10/01/18 Rx Nebulized 0.2 MG/ML] Gabapentin [Neurontin] 400 mg PO QID 05/19/18 10/01/18 History Multivitamins, Thera [Multivitamin 1 tab PO DAILY 05/19/18 10/01/18 History (formulary)] Naproxen 500 mg PO BID PRN 05/19/18 10/01/18 History Simvastatin [Zocor] 40 mg PO HS 05/19/18 10/01/18 History Tamsulosin HCl [Flomax] 0.4 mg PO HS 05/19/18 10/01/18 History Cyclobenzaprine [Flexeril] 10 mg PO TID PRN #0 05/22/18 10/01/18 Rx Budesonide-Formot 160-4.5 Mcg 1 puff INHALATION RT-BID PRN #0 05/26/18 10/01/18 Rx [Symbicort 160-4.5 Mcg Inhaler] Aspirin/Dipyridamole (Unknown) 1 cap PO BID 10/01/18 10/01/18 History Allergies Allergy/AdvReac Type Severity Reaction Status Date / Time montelukast sodium Allergy Itching Verified 10/01/18 11:17 [From [facility]] Physical Exam Vitals: Vital Signs Temp Pulse Pulse Resp BP BP Pulse Ox 10/02/18 11:57 84 10/02/18 11:42 84 10/02/18 08:20 80 10/02/18 08:07 76 10/02/18 07:32 97.6 F 72 119/63 97 10/02/18 07:12 18 10/01/18 23:20 98.7 F 75 18 116/60 94 L 10/01/18 21:47 20 10/01/18 20:45 97.6 F 83 18 109/54 94 L 10/01/18 20:14 84 10/01/18 20:02 81 93 L 10/01/18 16:59 97.9 F 85 22 119/51 97 10/01/18 16:40 98.4 F 84 16 121/45 96 10/01/18 15:52 86 18 106/52 95 10/01/18 14:55 80 16 90/53 96 Intake and Output 10/01/18 10/02/18 10/02/18 22:59 06:59 14:59 Intake Total 240 800 Output Total 600 500 Balance -360 300 Intake: Intake, IV Titration 800 Amount Sodium Chloride 0.9% 1, 800 000 ml @ 100 mls/hr IV . Q10H [facility] Rx#:[id number] Oral 240 Output: Urine 600 500 Other: Voiding Method Urinal # Voids 1 1 GENERAL EXAM: Alert, pleasant, 68-year-old white male patient, the on 4 L per nasal cannula with a pulse ox of 94-97%, comfortable in no apparent distress. HEAD: Normocephalic/atraumatic. EYES: Normal reaction of pupils, equal size. Conjunctiva pink, sclera white. NOSE: Clear with pink turbinates. THROAT: No erythema or exudates. NECK: No masses, no JVD, no thyroid enlargement, no adenopathy. CHEST: No chest wall deformity. Symmetrical expansion. LUNGS: Diminished breath sounds, with the expiratory wheezes and rhonchi at the bases CVS: Regular rate and rhythm, normal S1 and S2, no gallops, no murmurs, no rubs ABDOMEN: Soft, nontender. No hepatosplenomegaly, normal bowel sounds, no guarding or rigidity. EXTREMITIES: No clubbing, no edema, no cyanosis, 2+ pulses and upper and lower extremities. MUSCULOSKELETAL: Muscle strength and tone normal. SPINE: No scoliosis or deformity SKIN: No rashes CENTRAL NERVOUS SYSTEM: Alert and oriented -3. No focal deficits, tone is normal in all 4 extremities. PSYCHIATRIC: Alert and oriented -3. Appropriate affect. Intact judgment and insight. Results - Laboratory Findings CBC and BMP: 10/02/18 08:23 10/01/18 11:50 Abnormal lab findings: Abnormal Labs 10/01/18 10/01/18 10/01/18 11:50 11:50 11:50 WBC 15.1 H RBC 3.57 L Hgb 11.3 L Hct 35.2 L MCV MCHC Neutrophils # 13.6 H Lymphocytes # 0.7 L Glucose 142 H Plasma Lactic Acid Isaac 2.4 H* Albumin 3.4 L Urine Protein 10/01/18 10/01/18 10/02/18 15:47 Unknown 08:23 WBC 11.5 H RBC 3.26 L Hgb 10.1 L Hct 32.8 L MCV 100.7 H MCHC 30.9 L Neutrophils # 9.6 H Lymphocytes # Glucose Plasma Lactic Acid Isaac 2.4 H* Albumin Urine Protein Trace H - Diagnostic Findings Chest x-ray: report reviewed, image reviewed Additional studies: EKG reviewed Assessment and Plan Plan: Assessment: #1. Acute on chronic hypoxemic respiratory failure secondary to a suspected left lower lung pneumonia, community-acquired. Chest x-ray showed new left basilar infiltrate, suspicious for pneumonic infiltrate #2. Leukocytosis, fever, lactic acidosis, related to underlying sepsis related to suspected left lower lung pneumonia #3. COPD, on home oxygen at bedtime, patient has an underlying FEV1 1.59 L or 48% of predicted, stage III COPD #4. History of CVA/TIA #5. Coronary artery disease #6. Solitary lung nodule in the left upper lobe, measuring 1 cm, the PET scan was completed and there was no suspicious uptake. This is being followed with the CT chest every 6 months #7. Hypertension, hyperlipidemia #8. Osteoarthritis #9. BPH #10. IBS #11. History of 53 years of smoking, of 2-3 packs per day, patient quit smoking in May 2018 #12. GERD/reflux Plan: We will add Solu-Medrol, 60 mg every 6 hours, continue current antibiotic coverage, sputum for culture. Influenza screen was negative. The latest lactic acid was down to 0.8, continue with IV fluids. Afebrile today. Initial chest x-ray in follow-up chest x-ray were reviewed by Dr. Santiago, and cannot rule out left lower lung pneumonia. Breathing easier, continue bronchodilators, continue to follow. I performed a history & physical examination of the patient and discussed their management with my nurse practitioner, Aicha Mosquera. I reviewed the nurse practitioner's note and agree with the documented findings and plan of care. Lung sounds are positive for diminished breath sounds and wheezes throughout the lung mcdaniel. The findings and the impression was discussed with the patient. I attest to the documentation by the nurse practitioner. Time with Patient: Greater than 30
--- NOTE | 2018-10-02 14:54 | XR ---
EXAMINATION TYPE: XR chest 2V DATE OF EXAM: 10/02/2018 COMPARISON: 10/01/2018 INDICATION: Pneumonia TECHNIQUE: Frontal and lateral views of the chest are obtained. FINDINGS: The heart size is upper limits of normal. The pulmonary vasculature is normal. Mild left lower lobe infiltrate is present.. IMPRESSION: 1. Left lower lobe infiltrate. Correlate for pneumonia. Follow-up is recommended
[2018-10-02] MEDS: LEVOFLOXACIN 750MG-D5W PMX 750 MG in DEXTROSE/WATER 1 150ML.BAG IVPB SCH (15:09)
--- NOTE | 2018-10-02 15:56 | P.GSCN ---
History of Present Illness Consult date: 10/02/18 Reason for Consult: Chronic wound infection History of present illness: This is a 68-year-old male who was admitted to the hospital for treatment of pneumonia. Patient has a previously implanted pain pump. Apparently Dr. Torres placed pain pump in January 2018. Patient has had chronic problems with inflammation and swelling and pain at the pain pump area. He has a incision which is incompletely healed. Patient states that he has flareups of abdominal pain redness and swelling at the pain pump. 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 History of Any Multi-Drug Resistant Organisms: None Reported Past Surgical History: Adenoidectomy, Back Surgery, Heart Catheterization, Hernia Repair, Joint Replacement, Orthopedic Surgery, Tonsillectomy Additional Past Surgical History / Comment(s): L knee replacement, back surgery x2-failed fusion and 2 rods in lower back, L/R cataract surgery, bilat. rib removal (cervical), carpal tunnel R wrist, colonoscopy, L elbow surgery, abdominal hernia repair, 3 R inguinal hernia repairs, L inguinal hernia repair, rectal cystectomy.pain pump(ms) implanted Past Anesthesia/Blood Transfusion Reactions: Previous Problems w/ Anesthesia Additional Past Anesthesia/Blood Transfusion Reaction / Comm: With first surgery became belligerent when waking up. Past Psychological History: No Psychological Hx Reported Smoking Status: Current every day smoker - Past Family History Mother Family Medical History: No Reported History Additional Family Medical History / Comment(s): Mother was healthy and lived to be 88 or 89yrs old. Father Family Medical History: Cancer Additional Family Medical History / Comment(s): Father of lung cancer in his early 70's. Medications and Allergies Home Medications Medication Instructions Recorded Confirmed Type Albuterol Sulfate [Proventil Hfa] 2 puff INHALATION RT-Q6H PRN 12/01/15 History Atenolol [Tenormin] 50 mg PO BID 12/01/15 10/01/18 History HYDROcodone/APAP 10-325MG [[place] 1 tab PO Q6H PRN 12/01/15 10/01/18 History 10-325] amLODIPine [Norvasc] 5 mg PO DAILY 12/01/15 10/01/18 History Albuterol Nebulized [Ventolin 2.5 mg INHALATION RT-BID PRN 06/25/16 10/01/18 History Nebulized] Niacin 500 mg PO HS 06/25/16 10/01/18 History Omeprazole [PriLOSEC] 40 mg PO BID 06/25/16 10/01/18 History Ipratropium Nebulized [Atrovent 0.5 mg INHALATION RT-Q6H #0 06/26/16 10/01/18 Rx Nebulized 0.2 MG/ML] Gabapentin [Neurontin] 400 mg PO QID 05/19/18 10/01/18 History Multivitamins, Thera [Multivitamin 1 tab PO DAILY 05/19/18 10/01/18 History (formulary)] Naproxen 500 mg PO BID PRN 05/19/18 10/01/18 History Simvastatin [Zocor] 40 mg PO HS 05/19/18 10/01/18 History Tamsulosin HCl [Flomax] 0.4 mg PO HS 05/19/18 10/01/18 History Cyclobenzaprine [Flexeril] 10 mg PO TID PRN #0 05/22/18 10/01/18 Rx Budesonide-Formot 160-4.5 Mcg 1 puff INHALATION RT-BID PRN #0 05/26/18 10/01/18 Rx [Symbicort 160-4.5 Mcg Inhaler] Aspirin/Dipyridamole (Unknown) 1 cap PO BID 10/01/18 10/01/18 History Allergies Allergy/AdvReac Type Severity Reaction Status Date / Time montelukast sodium Allergy Itching Verified 10/01/18 11:17 [From [facility]] Surgical - Exam Vital Signs Temp Pulse Resp BP Pulse Ox 101.1 F H 98 24 116/47 89 L 10/01/18 10:46 10/01/18 10:46 10/01/18 10:46 10/01/18 10:46 10/01/18 10:46 - General well developed, no distress - Eyes PERRL - ENT normal pinna - Neck no masses - Respiratory normal expansion - Cardiovascular Rhythm: regular - Abdomen Abdomen obese. There is a left transverse abdominal wall incision with some area of mild induration. The incision is completely healed. There is evidence of a chronic wound measuring approximately 10 mm in diameter. Abdomen: soft Results - Labs 10/02/18 08:23 10/01/18 11:50 Abnormal Lab Results - Last 24 Hours (Table) 10/01/18 10/01/18 10/02/18 Range/Units 15:47 Unknown 08:23 WBC 11.5 H (3.8-10.6) k/uL RBC 3.26 L (4.30-5.90) m/uL Hgb 10.1 L (13.0-17.5) gm/dL Hct 32.8 L (39.0-53.0) % MCV 100.7 H (80.0-100.0) fL MCHC 30.9 L (31.0-37.0) g/dL Neutrophils # 9.6 H (1.3-7.7) k/uL Plasma Lactic Acid Isaac 2.4 H* (0.7-2.0) mmol/L Urine Protein Trace H (Negative) Microbiology - Last 24 Hours (Table) 10/01/18 11:50 Blood Culture - Preliminary Blood No Growth after 24 hours 10/01/18 20:14 Gram Stain - Preliminary Sputum Sputum Culture - Preliminary Assessment and Plan Assessment: Probable chronically infected pain pump. Patient should have the device removed. He states it is not helping his back pain at this point. The patient will follow-up with Dr. Torres to have the device removed.
--- NOTE | 2018-10-02 18:38 | ECHOF ---
Referral Reason:SOB MEASUREMENTS -------- HEIGHT: 180.3 cm WEIGHT: 112.9 kg BP: 119/63 RVIDd: 3.7 cm (< 3.3) IVSd: 1.3 cm (0.6 - 1.1) LVIDd: 3.7 cm (3.9 - 5.3) LVPWd: 1.3 cm (0.6 - 1.1) IVSs: 1.5 cm LVIDs: 2.6 cm LVPWs: 1.6 cm LAESV Index (A-L): 34.18 ml/m Ao Diam: 3.0 cm (2.0 - 3.7) AV Cusp: 2.0 cm (1.5 - 2.6) LA Diam: 4.2 cm (2.7 - 3.8) EPSS: 0.4 cm MV E Fred: 1.34 m/s MV DecT: 221 ms MV A Fred: 1.25 m/s MV E/A Ratio: 1.07 AV maxP.39 mmHg AV meanP.58 mmHg RAP: 10.00 mmHg RVSP: 53.67 mmHg MV EF SLOPE: 77.10 mm/s (70 - 150) MV EXCURSION: 1.95 cm (> 18.000) FINDINGS -------- Sinus rhythm. This was a technically adequate study. The left ventricular size is normal. There is mild concentric left ventricular hypertrophy. Overa ll left ventricular systolic function is normal with, an EF between 55 - 60 %. The right ventricle is mildly enlarged. LA is moderately dilated 34-39 ml/m2 RA appears enlarged. Aortic valve is trileaflet and is mildly thickened. There is no evidence of aortic regurgitation. There is no evidence of aortic stenosis. The mitral valve leaflets are mildly thickened. [id number] mitral regurgitation is present. Mild tricuspid regurgitation present. There is mild to moderate pulmonary hypertension. The right ventricular systolic pressure, as measured by Doppler, is 53.67mmHg. The pulmonic valve was not well visualized. The aortic root size is normal. The IVC is dilated with normal collapse. There is a trivial pericardial effusion present. CONCLUSIONS -------- 1. Sinus rhythm. 2. This was a technically adequate study. 3. The left ventricular size is normal. 4. There is mild concentric left ventricular hypertrophy. 5. Overall left ventricular systolic function is normal with, an EF between 55 - 60 %. 6. The right ventricle is mildly enlarged. 7. LA is moderately dilated 34-39 ml/m2 8. RA appears enlarged. 9. Aortic valve is trileaflet and is mildly thickened. 10. The mitral valve leaflets are mildly thickened. 11. [id number] mitral regurgitation is present. 12. Mild tricuspid regurgitation present. 13. There is mild to moderate pulmonary hypertension. 14. The right ventricular systolic pressure, as measured by Doppler, is 53.67mmHg. 15. The pulmonic valve was not well visualized. 16. The aortic root size is normal. 17. The IVC is dilated with normal collapse. 18. There is a trivial pericardial effusion present. CONDITIONING ROOM WORKER: Maicol Bunn RDCS
[2018-10-02] MEDS: ATORVASTATIN 20 MG TAB PO SCH (22:24)
[2018-10-02] MEDS: NIACIN TR 500 MG CAPLET PO SCH (22:24)
[2018-10-02] MEDS: TAMSULOSIN 0.4 MG CAP.ER.24H PO SCH (22:24)
[2018-10-03] MEDS: SODIUM CHLORIDE 0.9% 1,000 ML IV SCH (00:32)
[2018-10-03] MEDS: HYDROcodone/APAP 10-325MG 1 EACH TAB PO PRN ×3 (00:57→18:46)
[2018-10-03] MEDS: PIPERACILLIN-TAZOBACTAM 3.375 GM in SODIUM CHLORIDE 0.9% 100 ML IVPB SCH ×3 (00:57→17:06)
[2018-10-03] MEDS: methylPREDNISolone SOD SUCCI 125 MG/2 ML VIAL IV SCH ×4 (01:15→17:11)
[2018-10-03] MEDS: GABAPENTIN 400 MG CAP PO SCH ×4 (08:08→21:12)
[2018-10-03] MEDS: PANTOPRAZOLE 40 MG TABLET PO SCH ×2 (08:08→17:11)
[2018-10-03] MEDS: HEPARIN SODIUM,PORCINE 5,000 UNIT/ML 1 ML VIAL SQ SCH ×2 (08:08→21:12)
[2018-10-03] MEDS: ATENOLOL 50 MG TAB PO SCH ×2 (08:08→21:11)
[2018-10-03] MEDS: ASPIRIN 81 MG PO SCH (08:08)
[2018-10-03] MEDS: amLODIPine 5 MG TAB PO SCH (08:10)
[2018-10-03] MEDS: DIPYRIDAMOLE-ASPIRIN 200-25 MG 1 EACH CPMP.12HR PO SCH ×2 (08:11→21:12)
[2018-10-03] MEDS: SYMBICORT 160-4.5 MCG INHALER INHALATION SCH ×2 (08:39→20:01)
[2018-10-03] MEDS: IPRATROPIUM-ALBUTEROL 3 ML NEB INHALATION SCH ×4 (08:39→20:01)
--- NOTE | 2018-10-03 09:50 | P.PN ---
Subjective Progress Note Date: 10/03/18 Principal diagnosis: Pain device infection Patient seen for coverage of Dr. Gonzalez. States the pain at the pain pump is improved. He is afebrile. Objective - Vital Signs Vital signs: Vital Signs Temp 97.6 F 10/03/18 07:00 Pulse 84 10/03/18 08:52 Resp 18 10/03/18 08:00 BP 146/64 10/03/18 07:00 Pulse Ox 93 L 10/02/18 23:40 Intake & Output 10/02/18 10/03/18 10/03/18 18:59 06:59 18:59 Output Total 500 Balance -500 Output: Urine 500 Other: # Voids 2 2 - Exam Mild tenderness at pain pump site area no erythema. No fluctuance - Labs CBC & Chem 7: 10/02/18 08:23 10/01/18 11:50 Labs: Microbiology - Last 24 Hours (Table) 10/01/18 11:50 Blood Culture - Preliminary Blood No Growth after 24 hours 10/01/18 20:14 Gram Stain - Preliminary Sputum Sputum Culture - Preliminary Assessment and Plan Plan: Continue antibiotics per primary service. Outpatient follow-up with neurology. We'll sign off. Please call if needed.
--- NOTE | 2018-10-03 13:01 | P.PN ---
Subjective Progress Note Date: 10/03/18 Principal diagnosis: Pneumonia Patient seen and examined. No acute events overnight. Patient reports great improvement in his breathing, reports almost being back at baseline. He denies any shortness of breath, palpitations or chest pain. No nausea or vomiting. No fever or chills. Objective - Vital Signs Vital signs: Vital Signs Temp 97.6 F 10/03/18 07:00 Pulse 88 10/03/18 12:54 Resp 18 10/03/18 08:00 BP 146/64 10/03/18 07:00 Pulse Ox 93 L 10/02/18 23:40 Intake & Output 10/02/18 10/03/18 10/03/18 18:59 06:59 18:59 Output Total 500 Balance -500 Output: Urine 500 Other: # Voids 2 2 - Exam General: [non toxic], [no distress], [appears at stated age] Derm: [warm], [dry] Head: [atraumatic], [normocephalic], [symmetric] Eyes: [EOMI], [no lid lag], [anicteric sclera] Mouth: [no lip lesion], [mucus membranes moist] Cardiovascular: [S1S2 reg], [no murmur], [positive DP pulse bilateral] Lungs: [coarse breath sounds bilateral], [ rales bilaterally] , [no accessory muscle use] Abdominal: [soft], [ nontender to palpation], [no guarding], [no appreciable organomegaly], [well-healed surgical scar with erythema and palpable pain pump in the left sided abdomen, nontender to palpation] Ext: [no gross muscle atrophy], [1+ pitting edema], [no contractures] Neuro: [no focal neuro deficits] Psych: [Alert], [oriented], [appropriate affect] - Labs CBC & Chem 7: 10/02/18 08:23 10/01/18 11:50 Labs: Microbiology - Last 24 Hours (Table) 10/01/18 11:50 Blood Culture - Preliminary Blood No Growth after 24 hours 10/01/18 20:14 Gram Stain - Preliminary Sputum Sputum Culture - Preliminary Assessment and Plan Assessment: Assessment and Plan 1. Sepsis likely secondary to community-acquired pneumonia 2. Community acquired pneumonia 3. COPD 4. History of CVA and CAD 5. Hypertension 6. DVT and GI prophylaxis 1. Patient meets sepsis criteria. Elevated lactic acid at 2.4, leukocytosis of 15.1, O2 saturation 89% on room air, BP as low as 90 systolic and 45 diastolic responding to fluids on admission. Chest x-ray showing concerns for pneumonia. Continue IV antibiotics. Continue normal saline at 100 mL/h. Tylenol as needed for fever. Repeat lactic acid negative. Blood cultures prelim negative at 24 hours, sputum Gram stain prelim negative. Echocardiogram shows EF 55-60% with mild LVH. Follow final blood cultures. 2. As seen on chest x-ray. Continue levofloxacin IV, Zosyn IV. Will follow sputum culture. O2 per nasal cannula to maintain an oxygen saturation greater than 92%. Optimize COPD medications. Follow pulmonology consult. Repeat chest x-ray in the a.m. 3. Albuterol or DuoNeb treatments as needed for shortness of breath or wheezing. Continue Symbicort. Pulmonology consulted, started on Solu-Medrol 60 mg IV every 6 hours. Maintain oxygen saturation greater than 92%. Follow pulmonology consult. 4. Continue Lipitor 20 mg by mouth at bedtime. Will start aspirin. 5. BP 121/45. Continue amlodipine by mouth daily. Monitor vitals, adjust medications as necessary. 6. Heparin subcutaneously. Protonix by mouth. Patient admitted for sepsis likely secondary to community-acquired pneumonia. Pulmonology on consult. Patient pending clinical improvement. Likely DC in 1- 2 days.
--- NOTE | 2018-10-03 13:14 | P.PN ---
Subjective Progress Note Date: 10/03/18 Principal diagnosis: Acute exacerbation of chronic obstructive pulmonary disease This is a 67-year-old white male patient of Dr. Suazo, with past medical history of CAD, CVA/TIA, GERD/reflux, hypertension, hyperlipidemia, osteoarthritis, BPH, IBS. Patient has COPD, he wears oxygen at bedtime, patient follows with Dr. Bravo in the pulmonary clinic. He has 56 years of smoking history of 2-3 packs a day, the patient quit smoking in May 2018. He is on DuoNeb nebulized treatments at home, Symbicort. Patient has baseline FEV1 of 0.59 L, or 48% of predicted, and diffusion capacity of 63% of predicted. Patient also has a lung nodule in the left upper lobe measuring 1 cm , and the PET scan was completed on 06/27/2018, showed no suspicious hypermetabolic uptake suggest malignancy in regards to the developing 1 cm nodule along the wall in the left lung. This is being followed with outpatient CT chest every 6 months. On 10/02/2018 patient was sent to the emergency department from Dr. Suazo's office, where patient presented with complaints of fever, cough, congestion. Symptoms started in the morning on O2 2018. Patient denies any sick contacts , his fever was as high as 10 2F at home, and patient was also starting to get disoriented, and hence was sent to the hospital with concern of sepsis. Chest x -ray was completed in the emergency department and showed left basilar infiltrate and/or atelectasis. Labs showed leukocytosis, without labor blood cell count of 15.1, hemoglobin of 11.3, electrodes and renal profile were within normal limits, plasma lactic acid was elevated at 2.4, Influenza screen was negative. Urinalysis was noninfected. She was febrile presentation with a temp of 101.1F. Patient was started on Levaquin and Zosyn, he was given 2.5 L in IV fluid boluses, his maintenance IV fluid is running at 100 ML per hour. Breathing treatments were started, patient did have toxemia, with pulse ox of 79 % on room air on presentation, and did have relative hypotension, with a systolic in the 90s, and diastolic pressure in the 40s and 50s. Preliminary Gram stain showed no organisms. Blood cultures pending. The patient is seen today 10/03/2018 in follow-up on the regular medical floor. He is currently awake and alert in no acute distress. He sitting up at the bedside. He is breathing easier today as compared to yesterday. Not quite back to his baseline. Maintaining good O2 saturations in the 90s on 4 L/m per nasal cannula. He is afebrile. Hemodynamically stable. Blood culture reveals no growth to date. Sputum culture is pending. White count 11.5. Hemoglobin 10.1. Lactic acid 0.8. He is currently on DuoNeb inhalations, Symbicort, IV Solu-Medrol and antibiotics in the form of Zosyn and Levaquin. Objective - Vital Signs Vital signs: Vital Signs Temp 97.6 F 10/03/18 07:00 Pulse 88 10/03/18 12:54 Resp 18 10/03/18 08:00 BP 146/64 10/03/18 07:00 Pulse Ox 93 L 10/02/18 23:40 Intake & Output 10/02/18 10/03/18 10/03/18 18:59 06:59 18:59 Output Total 500 Balance -500 Output: Urine 500 Other: # Voids 2 2 - Exam GENERAL EXAM: Alert, active, comfortable in no apparent distress. On 4 L per nasal cannula. HEAD: Normocephalic. EYES: Normal reaction of pupils, equal size. NOSE: Clear with pink turbinates. THROAT: No erythema or exudates. NECK: No masses, no JVD. CHEST: No chest wall deformity. LUNGS: Equal air entry with bilateral end expiratory wheeze, diminished, crackles left base CVS: S1 and S2 normal with no audible murmur, regular rhythm. ABDOMEN: No hepatosplenomegaly, normal bowel sounds, no guarding or rigidity. SPINE: No scoliosis or deformity SKIN: No rashes CENTRAL NERVOUS SYSTEM: No focal deficits, tone is normal in all 4 extremities. EXTREMITIES: There is no peripheral edema. No clubbing, no cyanosis. Peripheral pulses are intact. - Labs CBC & Chem 7: 10/02/18 08:23 10/01/18 11:50 Labs: Microbiology - Last 24 Hours (Table) 10/01/18 11:50 Blood Culture - Preliminary Blood No Growth after 24 hours 10/01/18 20:14 Gram Stain - Preliminary Sputum Sputum Culture - Preliminary Assessment and Plan Assessment: Assessment: #1. Acute on chronic hypoxemic respiratory failure secondary to a suspected left lower lung pneumonia, community-acquired. Chest x-ray showed new left basilar infiltrate, suspicious for pneumonic infiltrate #2. Leukocytosis, fever, lactic acidosis, related to underlying sepsis related to suspected left lower lung pneumonia #3. COPD, on home oxygen at bedtime, patient has an underlying FEV1 1.59 L or 48% of predicted, stage III COPD #4. History of CVA/TIA #5. Coronary artery disease #6. Solitary lung nodule in the left upper lobe, measuring 1 cm, the PET scan was completed and there was no suspicious uptake. This is being followed with the CT chest every 6 months #7. Hypertension, hyperlipidemia #8. Osteoarthritis #9. BPH #10. IBS #11. History of 53 years of smoking, of 2-3 packs per day, patient quit smoking in May 2018 #12. GERD/reflux Plan: The patient was seen and evaluated by Dr. Santiago. He is improved today as compared to yesterday but not quite back to his baseline. We'll continue the current treatment plan. We will increase his activity as tolerated. We'll continue to follow and make further recommendations based on his clinical status. I, the cosigning physician, performed a history & physical examination of the patient. Lungs sounds with bilateral end expiratory wheeze, crackles in left base. Maintaining good O2 saturations in the 90s on 4 L/m per nasal cannula. I discussed the assessment and plan of care with my nurse practitioner, Radha Valenzuela. I attest to the above note as dictated by her.
[2018-10-03] MEDS: LEVOFLOXACIN 750MG-D5W PMX 750 MG in DEXTROSE/WATER 1 150ML.BAG IVPB SCH (14:10)
[2018-10-03] MEDS: ATORVASTATIN 20 MG TAB PO SCH (21:11)
[2018-10-03] MEDS: TAMSULOSIN 0.4 MG CAP.ER.24H PO SCH (21:12)
[2018-10-03] MEDS: NIACIN TR 500 MG CAPLET PO SCH (21:12)
[2018-10-03 22:44] LABS: Glucose,Whole Blood 215 mg/dL (75-99)
[2018-10-04] MEDS: PIPERACILLIN-TAZOBACTAM 3.375 GM in SODIUM CHLORIDE 0.9% 100 ML IVPB SCH ×2 (00:23→08:55)
[2018-10-04] MEDS: methylPREDNISolone SOD SUCCI 125 MG/2 ML VIAL IV SCH ×5 (00:23→23:50)
[2018-10-04] MEDS: HYDROcodone/APAP 10-325MG 1 EACH TAB PO PRN ×4 (00:58→23:48)
[2018-10-04 06:48] LABS: Glucose,Whole Blood 238 mg/dL (75-99)
[2018-10-04] MEDS: amLODIPine 5 MG TAB PO SCH (07:30)
[2018-10-04] MEDS: ATENOLOL 50 MG TAB PO SCH ×2 (07:31→22:04)
[2018-10-04] MEDS: GABAPENTIN 400 MG CAP PO SCH ×4 (07:31→22:04)
[2018-10-04] MEDS: PANTOPRAZOLE 40 MG TABLET PO SCH ×2 (07:31→17:20)
[2018-10-04] MEDS: ASPIRIN 81 MG PO SCH (07:31)
[2018-10-04] MEDS: DIPYRIDAMOLE-ASPIRIN 200-25 MG 1 EACH CPMP.12HR PO SCH ×2 (07:31→22:10)
[2018-10-04] MEDS: HEPARIN SODIUM,PORCINE 5,000 UNIT/ML 1 ML VIAL SQ SCH ×2 (07:32→22:05)
[2018-10-04] MEDS: INSULIN ASPART (NovoLOG) 100 UNIT/ML VIAL SQ SCH ×4 (07:33→22:08)
[2018-10-04] MEDS: IPRATROPIUM-ALBUTEROL 3 ML NEB INHALATION SCH ×4 (08:15→20:11)
[2018-10-04] MEDS: SYMBICORT 160-4.5 MCG INHALER INHALATION SCH ×2 (08:15→20:11)
[2018-10-04 11:40] LABS: Glucose,Whole Blood 262 mg/dL (75-99)
--- NOTE | 2018-10-04 11:45 | P.PN ---
Subjective Progress Note Date: 10/04/18 Principal diagnosis: Pneumonia 68-year-old male with PMH of CAD, COPD, hypertension, history of CVA presents to the ED for generally feeling unwell. Patient was noted to be de-satting in the 80s. Patient was brought to the hospital from [facility] clinic. Patient reports that he is at a cough over the past couple weeks that is productive of dark yellow sputum. In the ED, CBC showed a leukocytosis of 15.1. Patient also noted to have anemia with a hemoglobin of 11.3. CMP was unremarkable except for a glucose of 142. Initial lactic acid was 2.4, which resolved on day 2. Influenza was negative. Chest x-ray shows new left basilar acute infiltrate. Patient is admitted for community-acquired pneumonia, and started on levofloxacin and Zosyn IV. General surgery evaluated the pain pump was placed in his left lower abdomen, advised to follow-up with Dr. Torres in the outpatient setting for removal. Patient was seen and examined. No acute events overnight. Patient reports improvement in his breathing since admission. He denies any shortness of breath , chest pain or palpitations. Patient reports feeling almost back to baseline. Seen by pulmonology today. Hopeful discharge tomorrow. Objective - Vital Signs Vital signs: Vital Signs Temp 97.9 F 10/04/18 07:00 Pulse 90 10/04/18 08:28 Resp 17 10/04/18 07:20 BP 155/68 10/04/18 07:00 Pulse Ox 95 10/04/18 07:00 Intake & Output 10/03/18 10/04/18 10/04/18 18:59 06:59 18:59 Intake Total 100 Balance 100 Intake: Intake, IV Titration 100 Amount Piperacillin-Tazobactam 3 100 .375 gm In Sodium Chloride 0.9% 100 ml @ 25 mls/hr IVPB Q8HR [facility] Rx# :[id number] Other: Voiding Method Urinal # Voids 2 1 - Exam General: [non toxic], [no distress], [appears at stated age] Derm: [warm], [dry] Head: [atraumatic], [normocephalic], [symmetric] Eyes: [EOMI], [no lid lag], [anicteric sclera] Mouth: [no lip lesion], [mucus membranes moist] Cardiovascular: [S1S2 reg], [no murmur], [positive DP pulse bilateral] Lungs: [coarse breath sounds bilateral], [ rales bilaterally] , [no accessory muscle use] Abdominal: [soft], [ nontender to palpation], [no guarding], [no appreciable organomegaly], [well-healed surgical scar with erythema and palpable pain pump in the left sided abdomen, nontender to palpation] Ext: [no gross muscle atrophy], [1+ pitting edema], [no contractures] Neuro: [no focal neuro deficits] Psych: [Alert], [oriented], [appropriate affect] - Labs CBC & Chem 7: 10/02/18 08:23 10/01/18 11:50 Labs: Abnormal Lab Results - Last 24 Hours (Table) 10/03/18 10/04/18 Range/Units 22:42 06:45 POC Glucose (mg/dL) 215 H 238 H (75-99) mg/dL Microbiology - Last 24 Hours (Table) 10/01/18 20:14 Gram Stain - Final Sputum Sputum Culture - Final Serratia marcescens 10/01/18 11:50 Blood Culture - Preliminary Blood No Growth after 48 hours Assessment and Plan Assessment: Assessment and Plan 1. Sepsis likely secondary to community-acquired pneumonia versus infected pain pump? 2. Community acquired pneumonia 3. COPD 4. History of CVA and CAD 5. Hypertension 6. DVT and GI prophylaxis 1. Patient meets sepsis criteria. Elevated lactic acid at 2.4, leukocytosis of 15.1, O2 saturation 89% on room air, BP as low as 90 systolic and 45 diastolic responding to fluids on admission. Chest x-ray showing concerns for pneumonia. Continue IV antibiotics. Continue normal saline at 100 mL/h. Tylenol as needed for fever. Repeat lactic acid negative. Blood cultures prelim negative at 48 hours, sputum culture grow Serratia marcescens. Echocardiogram shows EF 55-60% with mild LVH. Patient has been evaluated by general surgery with regard to his pain pump in the left lower abdomen, he's been advised to follow-up with Dr. Torres in the outpatient setting for removal. Follow final blood cultures. 2. As seen on chest x-ray. Sputum culture grow Serratia marcescens which is sensitive to levofloxacin, will discontinue Zosyn IV. O2 per nasal cannula to maintain an oxygen saturation greater than 92%. Optimize COPD medications. Follow pulmonology consult. Repeat chest x-ray in the a.m. 3. Albuterol or DuoNeb treatments as needed for shortness of breath or wheezing. Continue Symbicort. Pulmonology consulted, started on Solu-Medrol 60 mg IV every 6 hours. Maintain oxygen saturation greater than 92%. Follow pulmonology consult. 4. Continue Lipitor 20 mg by mouth at bedtime. Will start aspirin. 5. BP 155/60.. Continue amlodipine by mouth daily. Monitor vitals, adjust medications as necessary. 6. Heparin subcutaneously. Protonix by mouth. Pain pump does not appear infected clinically. Patient admitted for sepsis likely secondary to community-acquired pneumonia. He has considerably improved since admission. Likely discharge tomorrow as per pulmonology recommendations. He is pending clinical improvement.
--- NOTE | 2018-10-04 15:11 | P.PN ---
Subjective Progress Note Date: 10/04/18 This is a 67-year-old white male patient of Dr. Suazo, with past medical history of CAD, CVA/TIA, GERD/reflux, hypertension, hyperlipidemia, osteoarthritis, BPH, IBS. Patient has COPD, he wears oxygen at bedtime, patient follows with Dr. Bravo in the pulmonary clinic. He has 56 years of smoking history of 2-3 packs a day, the patient quit smoking in May 2018. He is on DuoNeb nebulized treatments at home, Symbicort. Patient has baseline FEV1 of 0.59 L, or 48% of predicted, and diffusion capacity of 63% of predicted. Patient also has a lung nodule in the left upper lobe measuring 1 cm , and the PET scan was completed on 06/27/2018, showed no suspicious hypermetabolic uptake suggest malignancy in regards to the developing 1 cm nodule along the wall in the left lung. This is being followed with outpatient CT chest every 6 months. On 10/02/2018 patient was sent to the emergency department from Dr. Suazo's office, where patient presented with complaints of fever, cough, congestion. Symptoms started in the morning on O2 2018. Patient denies any sick contacts , his fever was as high as 10 2F at home, and patient was also starting to get disoriented, and hence was sent to the hospital with concern of sepsis. Chest x -ray was completed in the emergency department and showed left basilar infiltrate and/or atelectasis. Labs showed leukocytosis, without labor blood cell count of 15.1, hemoglobin of 11.3, electrodes and renal profile were within normal limits, plasma lactic acid was elevated at 2.4, Influenza screen was negative. Urinalysis was noninfected. She was febrile presentation with a temp of 101.1F. Patient was started on Levaquin and Zosyn, he was given 2.5 L in IV fluid boluses, his maintenance IV fluid is running at 100 ML per hour. Breathing treatments were started, patient did have toxemia, with pulse ox of 79 % on room air on presentation, and did have relative hypotension, with a systolic in the 90s, and diastolic pressure in the 40s and 50s. Preliminary Gram stain showed no organisms. Blood cultures pending. The patient is seen today 10/03/2018 in follow-up on the regular medical floor. He is currently awake and alert in no acute distress. He sitting up at the bedside. He is breathing easier today as compared to yesterday. Not quite back to his baseline. Maintaining good O2 saturations in the 90s on 4 L/m per nasal cannula. He is afebrile. Hemodynamically stable. Blood culture reveals no growth to date. Sputum culture is pending. White count 11.5. Hemoglobin 10.1. Lactic acid 0.8. He is currently on DuoNeb inhalations, Symbicort, IV Solu-Medrol and antibiotics in the form of Zosyn and Levaquin. 10/04/2018 and seeing this patient for a follow-up. He is consistently improving and his the short rib bronchospastic and wheezy. Sputum Gram stain showing gram-negative bacillus and final cultures and sensitivities still pending for now. Meanwhile, the patient a combination of Zosyn and Levaquin. He is on Symbicort DuoNeb and IV Solu-Medrol. Less bronchospastic illness wheezy and there has been no other significant events over the past 24 hours. Objective - Vital Signs Vital signs: Vital Signs Temp 97.9 F 10/04/18 07:00 Pulse 94 10/04/18 12:13 Resp 17 10/04/18 07:20 BP 155/68 10/04/18 07:00 Pulse Ox 95 10/04/18 07:00 Intake & Output 10/03/18 10/04/18 10/04/18 18:59 06:59 18:59 Intake Total 100 Balance 100 Intake: Intake, IV Titration 100 Amount Piperacillin-Tazobactam 3 100 .375 gm In Sodium Chloride 0.9% 100 ml @ 25 mls/hr IVPB Q8HR [facility] Rx# :[id number] Other: Voiding Method Urinal # Voids 2 1 2 - Exam GENERAL EXAM: Alert, active, comfortable in no apparent distress. On 4 L per nasal cannula. HEAD: Normocephalic. EYES: Normal reaction of pupils, equal size. NOSE: Clear with pink turbinates. THROAT: No erythema or exudates. NECK: No masses, no JVD. CHEST: No chest wall deformity. LUNGS: Equal air entry with bilateral end expiratory wheeze, diminished, crackles left base, the patient's air entry is improved significantly and the patient is less bronchospastic and wheezy for now. CVS: S1 and S2 normal with no audible murmur, regular rhythm. ABDOMEN: No hepatosplenomegaly, normal bowel sounds, no guarding or rigidity. SPINE: No scoliosis or deformity SKIN: No rashes CENTRAL NERVOUS SYSTEM: No focal deficits, tone is normal in all 4 extremities. EXTREMITIES: There is no peripheral edema. No clubbing, no cyanosis. Peripheral pulses are intact. - Labs CBC & Chem 7: 10/02/18 08:23 10/01/18 11:50 Labs: Abnormal Lab Results - Last 24 Hours (Table) 10/03/18 10/04/18 10/04/18 Range/Units 22:42 06:45 11:38 POC Glucose (mg/dL) 215 H 238 H 262 H (75-99) mg/dL Microbiology - Last 24 Hours (Table) 10/01/18 11:50 Blood Culture - Preliminary Blood No Growth after 72 hours 10/01/18 20:14 Gram Stain - Final Sputum Sputum Culture - Final Serratia marcescens Assessment and Plan Plan: Assessment: #1. Acute on chronic hypoxemic respiratory failure secondary to a suspected left lower lung pneumonia, community-acquired. Cultures are positive for Serratia marcescens #2. Leukocytosis, fever, lactic acidosis, related to underlying sepsis related to suspected left lower lung pneumonia #3. COPD, on home oxygen at bedtime, patient has an underlying FEV1 1.59 L or 48% of predicted, stage III COPD #4. History of CVA/TIA #5. Coronary artery disease #6. Solitary lung nodule in the left upper lobe, measuring 1 cm, the PET scan was completed and there was no suspicious uptake. This is being followed with the CT chest every 6 months #7. Hypertension, hyperlipidemia #8. Osteoarthritis #9. BPH #10. IBS #11. History of 53 years of smoking, of 2-3 packs per day, patient quit smoking in May 2018 #12. GERD/reflux Plan Discontinue the IV Zosyn. Continue Levaquin. Continue bronchodilators. Start tapering prednisone as of tomorrow. Clinically much improved. We'll continue to follow make further recommendations based on his progress.
[2018-10-04] MEDS: LEVOFLOXACIN 750MG-D5W PMX 750 MG in DEXTROSE/WATER 1 150ML.BAG IVPB SCH (16:32)
[2018-10-04 16:52] LABS: Glucose,Whole Blood 195 mg/dL (75-99)
[2018-10-04 21:20] LABS: Glucose,Whole Blood 197 mg/dL (75-99)
[2018-10-04] MEDS: NIACIN TR 500 MG CAPLET PO SCH (22:04)
[2018-10-04] MEDS: ATORVASTATIN 20 MG TAB PO SCH (22:04)
[2018-10-04] MEDS: TAMSULOSIN 0.4 MG CAP.ER.24H PO SCH (22:05)
[2018-10-05] MEDS: methylPREDNISolone SOD SUCCI 125 MG/2 ML VIAL IV SCH (05:50)
[2018-10-05] MEDS: HYDROcodone/APAP 10-325MG 1 EACH TAB PO PRN ×2 (06:01→12:21)
[2018-10-05 06:53] LABS: Glucose,Whole Blood 162 mg/dL (75-99)
[2018-10-05] MEDS: INSULIN ASPART (NovoLOG) 100 UNIT/ML VIAL SQ SCH (07:02)
[2018-10-05] MEDS: HEPARIN SODIUM,PORCINE 5,000 UNIT/ML 1 ML VIAL SQ SCH (07:02)
[2018-10-05] MEDS: PANTOPRAZOLE 40 MG TABLET PO SCH (07:02)
[2018-10-05] MEDS: ATENOLOL 50 MG TAB PO SCH (07:03)
[2018-10-05] MEDS: amLODIPine 5 MG TAB PO SCH (07:03)
[2018-10-05] MEDS: GABAPENTIN 400 MG CAP PO SCH (07:03)
[2018-10-05] MEDS: ASPIRIN 81 MG PO SCH (07:03)
[2018-10-05] MEDS: DIPYRIDAMOLE-ASPIRIN 200-25 MG 1 EACH CPMP.12HR PO SCH (07:03)
[2018-10-05 07:12] VITALS: TEMP 97.8
[2018-10-05 08:17] LABS: HCT 36.3 % (39.0-53.0); HGB 11.2 gm/dL (13.0-17.5); Hypochromasia Slight; MCH 30.7 pg (25.0-35.0); MCHC 30.9 g/dL (31.0-37.0); MCV 99.4 fL (80.0-100.0); Mean Platelet Volume 6.2; Platelet Count 344 k/uL (150-450); RBC 3.66 m/uL (4.30-5.90); RDW 13.8 % (11.5-15.5)
[2018-10-05] MEDS: IPRATROPIUM-ALBUTEROL 3 ML NEB INHALATION SCH ×2 (08:17→12:37)
[2018-10-05] MEDS: SYMBICORT 160-4.5 MCG INHALER INHALATION SCH (08:17)
[2018-10-05 08:24] LABS: Anion Gap 7 mmol/L; Blood Urea Nitrogen 21 mg/dL (9-20); Calcium 10.2 mg/dL (8.4-10.2); Carbon Dioxide 27 mmol/L (22-30); Chloride 105 mmol/L (98-107); Glucose 201 mg/dL (74-99); Potassium 4.4 mmol/L (3.5-5.1); Sodium 139 mmol/L (137-145)
[2018-10-05 09:26] VITALS: BP 143/77; PULSE 77; RESP 14
--- NOTE | 2018-10-05 09:42 | XR ---
EXAMINATION TYPE: XR chest 2V DATE OF EXAM: 10/05/2018 COMPARISON: 10/02/2018 HISTORY: Follow-up for pneumonia TECHNIQUE: Frontal and lateral views of the chest are obtained. FINDINGS: There is near complete resolution of the previously seen left basilar opacity with minimal linear airspace disease remaining. Remainder the lungs are well aerated with mild biapical pleural p arenchymal scarring. Cardiomediastinal silhouette is mildly enlarged. Osseous structures are grossly intact with mild degenerative changes of the thoracic spine. IMPRESSION: Near complete resolution of the left basilar pneumonia.
--- NOTE | 2018-10-05 09:52 | P.DS ---
Providers Date of admission: 10/01/18 14:28 Expected date of discharge: 10/05/18 Attending physician: Davonte Bundy MD Consults: 10/01/18 15:36 Consult Physician Stat Consulting Provider: Lopez Mendenhall Consult Reason/Comments: PNA. COPD Do you want consulting provider notified?: Yes 10/01/18 16:14 Consult Physician Routine Consulting Provider: Jose Gonzalez Consult Reason/Comments: Possible infected pain pump Do you want consulting provider notified?: Yes Primary care physician: David Suazo Hospital Course: Discharge Diagnosis: Left lower lobe community-acquired pneumonia with sepsis due to Serratia Acute exacerbation of COPD stage III Acute on chronic hypoxic respiratory failure Solitary lung nodule, known and being followed by pulmonary Obesity with BMI 34.7 Hypertension Dyslipidemia Osteoarthritis Acid reflux Hospital Course: Patient is a 68-year-old male with a past medical history of coronary artery disease, COPD, hypertension, and dyslipidemia who presented to the ER for feeling unwell. He initially had started on his primary care physician's office but was found to have a fever of 102 and oxygen saturations in the 80s. He therefore was directed to come to the ER. In the emergency department he was noted to have an elevated white blood cell count of 15.1, hemoglobin 11.3, and a glucose of 142. Initial lactic acid was 2.4 and influenza was negative. Chest x-ray showed left lower lobe infiltrate. He was started on IV antibiotics to cover community-acquired pneumonia and pulmonary was consulted. Patient continue to progress well throughout his hospitalization. His breathing improved and he was up and amnbulating tin the halls. He was determined stable for discharge home. He will follow with Dr. Suazo next week and Dr. Bravo on . He will complete a prednisone taper and a 7 day course of Levaquin. Patient seen and examined at bedside. Breathing is better, up and walking in the hallways. No chest pain , no constipation. Feeling well and wants to go home. Vital signs reviewed and stable. General: non toxic, no distress, appears at stated age Derm: warm, dry Head: atraumatic, normocephalic, symmetric Eyes: EOMI, no lid lag, anicteric sclera Mouth: no lip lesion, mucus membranes moist Cardiovascular: S1S2 reg, no murmur, positive posterior tibial pulse bilateral, Lungs: CTA bilateral, no rhonchi, no rales , no accessory muscle use Abdominal: soft, nontender to palpation, no guarding, no appreciable organomegaly Ext: no gross muscle atrophy, no edema, no contractures Neuro: CN II-XI grossly intact, no focal neuro deficits Psych: Alert, oriented, appropriate affect A total of 40 minutes of time were spent preparing this complex discharge summary . Pertinent Studies: CXR- LLL PNA Patient Condition at Discharge: Stable Plan - Discharge Summary Discharge Rx Participant: Yes New Discharge Prescriptions: New Levofloxacin [Levaquin] 750 mg PO DAILY 3 Days #3 tab RX: predniSONE 0 mg PO DIRECTED #15 tab Continue RX: Albuterol Sulfate [Proventil Hfa] 2 puff INHALATION RT-Q6H PRN PRN Reason: Shortness Of Breath RX: HYDROcodone/APAP 10-325MG [Brogue 10-325] 1 tab PO Q6H PRN PRN Reason: Pain RX: Atenolol [Tenormin] 50 mg PO BID RX: amLODIPine [Norvasc] 5 mg PO DAILY RX: Albuterol Nebulized [Ventolin Nebulized] 2.5 mg INHALATION RT-BID PRN PRN Reason: Shortness Of Breath RX: Omeprazole [PriLOSEC] 40 mg PO BID RX: Niacin 500 mg PO HS RX: Ipratropium Nebulized [Atrovent Nebulized 0.2 MG/ML] 0.5 mg INHALATION RT -Q6H #0 RX: Gabapentin [Neurontin] 400 mg PO QID RX: Naproxen 500 mg PO BID PRN PRN Reason: PAIN/INFLAMMATION RX: Simvastatin [Zocor] 40 mg PO HS RX: Multivitamins, Thera [Multivitamin (formulary)] 1 tab PO DAILY RX: Tamsulosin HCl [Flomax] 0.4 mg PO HS RX: Cyclobenzaprine [Flexeril] 10 mg PO TID PRN #0 PRN Reason: Muscle Spasm RX: Budesonide-Formot 160-4.5 Mcg [Symbicort 160-4.5 Mcg Inhaler] 1 puff INHALATION RT-BID PRN #0 PRN Reason: Wheezing Aspirin/Dipyridamole (Unknown) 1 cap PO BID Discharge Medication List RX: Albuterol Sulfate [Proventil Hfa] 2 puff INHALATION RT-Q6H PRN 04/29/16 [ History] RX: Atenolol [Tenormin] 50 mg PO BID 12/01/15 [History] RX: HYDROcodone/APAP 10-325MG [Brogue 10-325] 1 tab PO Q6H PRN 12/01/15 [History] RX: amLODIPine [Norvasc] 5 mg PO DAILY 12/01/15 [History] RX: Albuterol Nebulized [Ventolin Nebulized] 2.5 mg INHALATION RT-BID PRN [History] RX: Niacin 500 mg PO HS 06/25/16 [History] RX: Omeprazole [PriLOSEC] 40 mg PO BID 06/25/16 [History] RX: Ipratropium Nebulized [Atrovent Nebulized 0.2 MG/ML] 0.5 mg INHALATION RT- Q6H #0 06/26/16 [Rx] RX: Gabapentin [Neurontin] 400 mg PO QID 05/19/18 [History] RX: Multivitamins, Thera [Multivitamin (formulary)] 1 tab PO DAILY 05/19/18 [ History] RX: Naproxen 500 mg PO BID PRN 05/19/18 [History] RX: Simvastatin [Zocor] 40 mg PO HS 05/19/18 [History] RX: Tamsulosin HCl [Flomax] 0.4 mg PO HS 05/19/18 [History] RX: Cyclobenzaprine [Flexeril] 10 mg PO TID PRN #0 05/22/18 [Rx] RX: Budesonide-Formot 160-4.5 Mcg [Symbicort 160-4.5 Mcg Inhaler] 1 puff INHALATION RT-BID PRN #0 05/26/18 [Rx] Aspirin/Dipyridamole (Unknown) 1 cap PO BID 10/01/18 [History] Levofloxacin [Levaquin] 750 mg PO DAILY 3 Days #3 tab 10/05/18 [Rx] RX: predniSONE 0 mg PO DIRECTED #15 tab 10/05/18 [Rx] Follow up Appointment(s)/Referral(s): Avery Bravo DO [Doctor of Osteopathic Medicine] - 10/21/18 11:00 am David Suazo MD [Primary Care Provider] - 10/08/18 9:00 am Patient Instructions/Handouts: COPD (Chronic Obstructive Pulmonary Disease) (DC ) Activity/Diet/Wound Care/Special Instructions: Heart healthy diet activity as tolerated Dr. Gonzalez evaluated pain pump and recommended removal and follow-up with Dr. Torres for this. Discharge Disposition: HOME SELF-CARE
--- NOTE | 2018-10-05 10:53 | P.PN ---
Subjective Progress Note Date: 10/05/18 Principal diagnosis: Acute on chronic hypoxemic respiratory failure secondary to suspected left lower lung pneumonia, community-acquired, sputum cultures are positive for Serratia marcescens This is a 67-year-old white male patient of Dr. Suazo, with past medical history of CAD, CVA/TIA, GERD/reflux, hypertension, hyperlipidemia, osteoarthritis, BPH, IBS. Patient has COPD, he wears oxygen at bedtime, patient follows with Dr. Bravo in the pulmonary clinic. He has 56 years of smoking history of 2-3 packs a day, the patient quit smoking in May 2018. He is on DuoNeb nebulized treatments at home, Symbicort. Patient has baseline FEV1 of 0.59 L, or 48% of predicted, and diffusion capacity of 63% of predicted. Patient also has a lung nodule in the left upper lobe measuring 1 cm , and the PET scan was completed on 06/27/2018, showed no suspicious hypermetabolic uptake suggest malignancy in regards to the developing 1 cm nodule along the wall in the left lung. This is being followed with outpatient CT chest every 6 months. On 10/02/2018 patient was sent to the emergency department from Dr. Suazo's office, where patient presented with complaints of fever, cough, congestion. Symptoms started in the morning on O2 2018. Patient denies any sick contacts , his fever was as high as 10 2F at home, and patient was also starting to get disoriented, and hence was sent to the hospital with concern of sepsis. Chest x -ray was completed in the emergency department and showed left basilar infiltrate and/or atelectasis. Labs showed leukocytosis, without labor blood cell count of 15.1, hemoglobin of 11.3, electrodes and renal profile were within normal limits, plasma lactic acid was elevated at 2.4, Influenza screen was negative. Urinalysis was noninfected. She was febrile presentation with a temp of 101.1F. Patient was started on Levaquin and Zosyn, he was given 2.5 L in IV fluid boluses, his maintenance IV fluid is running at 100 ML per hour. Breathing treatments were started, patient did have toxemia, with pulse ox of 79 % on room air on presentation, and did have relative hypotension, with a systolic in the 90s, and diastolic pressure in the 40s and 50s. Preliminary Gram stain showed no organisms. Blood cultures pending. The patient is seen today 10/03/2018 in follow-up on the regular medical floor. He is currently awake and alert in no acute distress. He sitting up at the bedside. He is breathing easier today as compared to yesterday. Not quite back to his baseline. Maintaining good O2 saturations in the 90s on 4 L/m per nasal cannula. He is afebrile. Hemodynamically stable. Blood culture reveals no growth to date. Sputum culture is pending. White count 11.5. Hemoglobin 10.1. Lactic acid 0.8. He is currently on DuoNeb inhalations, Symbicort, IV Solu-Medrol and antibiotics in the form of Zosyn and Levaquin. 10/04/2018 and seeing this patient for a follow-up. He is consistently improving and his the short rib bronchospastic and wheezy. Sputum Gram stain showing gram-negative bacillus and final cultures and sensitivities still pending for now. Meanwhile, the patient a combination of Zosyn and Levaquin. He is on Symbicort DuoNeb and IV Solu-Medrol. Less bronchospastic illness wheezy and there has been no other significant events over the past 24 hours. On 10/05/2018 patient seen in follow-up on medical surgical floor. He is improving, no fever or chills, breathing easier, lung sounds reveal a few scattered rhonchi at the bases, no wheezing. Pulse ox is 96% on 4 L, FiO2 was turned down to 2 L, patient normally wears oxygen at home at bedtime only. His pulse ox remained at 92% on 2 L. Vital signs stable. No complaints of chest pain, worsening shortness of breath, no significant cough or chest congestion, sputum cultures were positive for Serratia marcescens with sensitivity to Levaquin. Zosyn was utilized in the initial treatment, it has been discontinued , and patient remains on antibiotic coverage in the form of Levaquin only. Tolerating ambulation in the room, no acute events overnight. Today's labs have been reviewed, white blood cell count is 9.0, hemoglobin is 11.2, electrolytes and renal profile are unremarkable. Anticipate discharge home today, patient will need outpatient follow-up with Dr. Bravo Objective - Vital Signs Vital signs: Vital Signs Temp 97.8 F 10/05/18 07:00 Pulse 77 03/04/19 09:25 Resp 14 10/05/18 09:25 BP 143/77 10/05/18 09:25 Pulse Ox 92 L 10/05/18 09:25 Intake & Output 10/04/18 10/05/18 10/05/18 18:59 06:59 18:59 Intake Total 550 Output Total 500 Balance 50 Intake: Oral 550 Output: Urine 500 Other: Voiding Method Urinal # Voids 2 2 - Exam GENERAL EXAM: Alert, pleasant, 68-year-old obese white male, currently on 4 L per nasal cannula with a pulse ox of 96%, comfortable in no apparent distress. HEAD: Normocephalic/atraumatic. EYES: Normal reaction of pupils, equal size. Conjunctiva pink, sclera white. NOSE: Clear with pink turbinates. THROAT: No erythema or exudates. NECK: No masses, no JVD, no thyroid enlargement, no adenopathy. CHEST: No chest wall deformity. Symmetrical expansion. LUNGS: Equal air entry with a few scattered rhonchi at the bases CVS: Regular rate and rhythm, normal S1 and S2, no gallops, no murmurs, no rubs ABDOMEN: Soft, nontender. No hepatosplenomegaly, normal bowel sounds, no guarding or rigidity. EXTREMITIES: No clubbing, no edema, no cyanosis, 2+ pulses and upper and lower extremities. MUSCULOSKELETAL: Muscle strength and tone normal. SPINE: No scoliosis or deformity SKIN: No rashes CENTRAL NERVOUS SYSTEM: Alert and oriented -3. No focal deficits, tone is normal in all 4 extremities. PSYCHIATRIC: Alert and oriented -3. Appropriate affect. Intact judgment and insight. - Labs CBC & Chem 7: 10/05/18 07:55 10/05/18 07:55 Labs: Abnormal Lab Results - Last 24 Hours (Table) 10/04/18 10/04/18 10/04/18 Range/Units 11:38 16:47 21:19 RBC (4.30-5.90) m/uL Hgb (13.0-17.5) gm/dL Hct (39.0-53.0) % MCHC (31.0-37.0) g/dL BUN (9-20) mg/dL Glucose (74-99) mg/dL POC Glucose (mg/dL) 262 H 195 H 197 H (75-99) mg/dL 10/05/18 10/05/18 10/05/18 Range/Units 06:51 07:55 07:55 RBC 3.66 L (4.30-5.90) m/uL Hgb 11.2 L (13.0-17.5) gm/dL Hct 36.3 L (39.0-53.0) % MCHC 30.9 L (31.0-37.0) g/dL BUN 21 H (9-20) mg/dL Glucose 201 H (74-99) mg/dL POC Glucose (mg/dL) 162 H (75-99) mg/dL Microbiology - Last 24 Hours (Table) 10/01/18 11:50 Blood Culture - Preliminary Blood No Growth after 72 hours 10/01/18 20:14 Gram Stain - Final Sputum Sputum Culture - Final Serratia marcescens Assessment and Plan Plan: Assessment: #1. Acute on chronic hypoxemic respiratory failure secondary to a suspected left lower lung pneumonia, community-acquired. Sputum culture was positive for Serratia marcescens #2. Leukocytosis, fever, lactic acidosis, related to underlying sepsis related to suspected left lower lung pneumonia #3. COPD, on home oxygen at bedtime, patient has an underlying FEV1 1.59 L or 48% of predicted, stage III COPD #4. History of CVA/TIA #5. Coronary artery disease #6. Solitary lung nodule in the left upper lobe, measuring 1 cm, the PET scan was completed and there was no suspicious uptake. This is being followed with the CT chest every 6 months #7. Hypertension, hyperlipidemia #8. Osteoarthritis #9. BPH #10. IBS #11. History of 53 years of smoking, of 2-3 packs per day, patient quit smoking in May 2018 #12. GERD/reflux Plan: Patient continues to improve, VS stable, no fever or chills, tolerating ambulation, FiO2 is down to 2 L, this is how much patient wears at home at bedtime. No worsening shortness of breath or chest pain, no significant cough or chest congestion. From pulmonary perspective patient is stable for discharge home today follow-up with Dr. Bravo in the office in 7-10 days. Finish outpatient course of oral Levaquin, prednisone taper, and patient can resume his home inhalers and nebulized treatments. I performed a history & physical examination of the patient and discussed their management with my nurse practitioner, Aicha Mosquera. I reviewed the nurse practitioner's note and agree with the documented findings and plan of care. Lung sounds are positive for diminished breath sounds and a few scattered rhonchi. The findings and the impression was discussed with the patient. I attest to the documentation by the nurse practitioner. Time with Patient: Less than 30
[2018-10-05 11:34] LABS: Glucose,Whole Blood 271 mg/dL (75-99)
== END 2018-10-05 13:38 | disposition home or self-care (01) | DRG 871 ==
LOC: EC 10:16 → 4MS4W 14:28 → 4SSUR 21:18
PROVIDERS: ADMIT Family Medicine; ATTEND Family Medicine
DX: A41.53 Sepsis due to Serratia (principal); J15.6 Pneumonia due to other Gram-negative bacteria; J96.21 Acute and chronic respiratory failure with hypoxia; J44.0 Chronic obstructive pulmonary disease with (acute) lower respiratory infection; J44.1 Chronic obstructive pulmonary disease with (acute) exacerbation; E87.2 Acidosis; T85.738A Infection and inflammatory reaction due to other nervous system device, implant or graft, initial encounter; D64.9 Anemia, unspecified; E78.5 Hyperlipidemia, unspecified; M19.90 Unspecified osteoarthritis, unspecified site; N40.0 Benign prostatic hyperplasia without lower urinary tract symptoms; H93.13 Tinnitus, bilateral; K44.9 Diaphragmatic hernia without obstruction or gangrene; R91.1 Solitary pulmonary nodule; I10 Essential (primary) hypertension; I25.10 Atherosclerotic heart disease of native coronary artery without angina pectoris; K21.9 Gastro-esophageal reflux disease without esophagitis; K58.9 Irritable bowel syndrome, unspecified; F17.211 Nicotine dependence, cigarettes, in remission; E66.9 Obesity, unspecified; Z68.34 Body mass index [BMI] 34.0-34.9, adult; Z99.81 Dependence on supplemental oxygen; Z79.02 Long term (current) use of antithrombotics/antiplatelets; Z79.51 Long term (current) use of inhaled steroids; Z79.899 Other long term (current) drug therapy; Z86.73 Personal history of transient ischemic attack (TIA), and cerebral infarction without residual deficits; Z96.652 Presence of left artificial knee joint; Z98.42 Cataract extraction status, left eye; Z98.41 Cataract extraction status, right eye; Z88.8 Allergy status to other drugs, medicaments and biological substances; Z80.1 Family history of malignant neoplasm of trachea, bronchus and lung; Y83.1 Surgical operation with implant of artificial internal device as the cause of abnormal reaction of the patient, or of later complication, without mention of misadventure at the time of the procedure
CPT/HCPCS: 36415; 71046; 80048; 80053; 81003; 83605; 85025; 85027; 87040; 87070; 87077; 87186; 87205; 87502; 93306; 94640; 96365; 99285

== ENCOUNTER 2018-11-08 09:05 | Emergency (ER) | payer MEDICARE, BC ==
[2018-11-08] MEDS ORDERED: SODIUM CHLORIDE 0.9% 1,000 ML IV ONE ×3 (09:21→12:36)
[2018-11-08] MEDS ORDERED: IPRATROPIUM-ALBUTEROL 3 ML NEB INHALATION STA (09:25)
[2018-11-08] MEDS ORDERED: ACETAMINOPHEN IV (For NPO) 1,000 MG in EMPTY BAG 1 BAG IVPB STA (09:27)
--- NOTE | 2018-11-08 09:39 | ED ---
Seizure HPI - General Source: family, EMS, RN notes reviewed Mode of arrival: EMS Limitations: altered mental status <Kaz Chi - Last Filed: 11/08/18 16:34> <Rei Dawkins - Last Filed: 11/08/18 16:55> - General Stated Complaint: Seizure Time Seen by Provider: 11/08/18 09:13 - History of Present Illness Initial Comments: This is a 68-year-old male presents emergency department via EMS with chief complaint of seizure. reports the patient fell around 2 or 3 AM this morning and she left him on the ground. She reported that he did not have a head injury at that time. Patient started having a seizure this morning in whic h she called 911 . Patient was given Versed 7 mg. Patient is also noted to have a fever. Patient had recent hospitalization for pneumonia with sepsis. Patient's also had a recent pain pump removed on friday by Dr. Torres. Patient unable to provide any information given patient's current condition. Information is followed by . Patient has a history of COPD. Patient's denies any recent URI symptoms including cough, vomiting diarrhea. (Kaz Chi) - Related Data Home Medications Medication Instructions Recorded Confirmed Albuterol Sulfate [Proventil Hfa] 2 puff INHALATION RT-Q6H PRN 12/01/15 11/08/18 Atenolol [Tenormin] 50 mg PO BID 12/01/15 11/08/18 HYDROcodone/APAP 10-325MG [[place] 1 tab PO Q6H PRN 12/01/15 11/08/18 10-325] amLODIPine [Norvasc] 5 mg PO DAILY 12/01/15 11/08/18 Albuterol Nebulized [Ventolin 2.5 mg INHALATION RT-BID PRN 06/25/16 11/08/18 Nebulized] Omeprazole [PriLOSEC] 40 mg PO BID 06/25/16 11/08/18 Gabapentin [Neurontin] 400 mg PO QID 05/19/18 11/08/18 Multivitamins, Thera [Multivitamin 1 tab PO DAILY 05/19/18 11/08/18 (formulary)] Naproxen 500 mg PO BID PRN 05/19/18 11/08/18 Simvastatin [Zocor] 40 mg PO HS 05/19/18 11/08/18 Tamsulosin HCl [Flomax] 0.4 mg PO HS 05/19/18 11/08/18 Cephalexin [Keflex] 500 mg PO TID 11/08/18 11/08/18 predniSONE See Taper PO DAILY 11/08/18 11/08/18 Previous Rx's Medication Instructions Recorded Ipratropium Nebulized [Atrovent 0.5 mg INHALATION RT-Q6H #0 06/26/16 Nebulized 0.2 MG/ML] Cyclobenzaprine [Flexeril] 10 mg PO TID PRN #0 05/22/18 Budesonide-Formot 160-4.5 Mcg 1 puff INHALATION RT-BID PRN #0 05/26/18 [Symbicort 160-4.5 Mcg Inhaler] Allergies Allergy/AdvReac Type Severity Reaction Status Date / Time montelukast sodium Allergy Itching Ver[facility] 11[facility]08[facility]18 13:50 [facility] Review of Systems ROS Other: All systems not noted in ROS Statement are negative. <Kaz Chi - Last Filed: 11/08/18 16:34> ROS Other: All systems not noted in ROS Statement are negative. <Rei Dawkins - Last Filed: 11/08/18 16:55> ROS Statement: Those systems with pertinent positive or pertinent negative responses have been documented in the HPI. 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 History of Any Multi-Drug Resistant Organisms: None Reported Past Surgical History: Adenoidectomy, Back Surgery, Heart Catheterization, Hernia Repair, Joint Replacement, Orthopedic Surgery, Tonsillectomy Additional Past Surgical History / Comment(s): L knee replacement, back surgery x2-failed fusion and 2 rods in lower back, L/R cataract surgery, bilat. rib removal (cervical), carpal tunnel R wrist, colonoscopy, L elbow surgery, abdominal hernia repair, 3 R inguinal hernia repairs, L inguinal hernia repair, rectal cystectomy.pain pump(ms) implanted Past Anesthesia/Blood Transfusion Reactions: Previous Problems w/ Anesthesia Additional Past Anesthesia/Blood Transfusion Reaction / Comment(s): With first surgery became belligerent when waking up. Past Psychological History: No Psychological Hx Reported Smoking Status: Current every day smoker - Past Family History Mother Family Medical History: No Reported History Additional Family Medical History / Comment(s): Mother was healthy and lived to be 88 or 89yrs old. Father Family Medical History: Cancer Additional Family Medical History / Comment(s): Father of lung cancer in his early 70's. <Kaz Chi - Last Filed: 11/08/18 16:34> General Exam Limitations: altered mental status General appearance: alert, in distress Head exam: Present: atraumatic, normocephalic, normal inspection Eye exam: Present: normal appearance, PERRL, EOMI. Absent: scleral icterus, conjunctival injection, periorbital swelling ENT exam: Present: normal exam, normal oropharynx, mucous membranes moist Neck exam: Present: normal inspection, full ROM. Absent: tenderness, meningismus, lymphadenopathy Respiratory exam: Present: respiratory distress (Moderate), wheezes, rhonchi. Absent: normal lung sounds bilaterally, rales, stridor Cardiovascular Exam: Present: normal rhythm, tachycardia, normal heart sounds. Absent: systolic murmur, diastolic murmur, rubs, gallop, clicks GI/Abdominal exam: Present: soft, normal bowel sounds, other (Incision noted on the left side of the abdomen, no surrounding erythema). Absent: distended, tenderness, guarding, rebound, rigid Back exam: Absent: normal inspection (3 inch incision in the lower lumbar region with no surrounding erythema no purulent drainage) Neurological exam: Absent: alert, oriented X3 Expanded Eye Response: (1) no response Motor Response: (4) withdraws to pain Verbal Response: (1) no verbal response Jet Total: 6 Skin exam: Present: warm, dry, intact, normal color. Absent: rash <Kaz Chi - Last Filed: 11/08/18 16:34> Course <Kaz Chi - Last Filed: 11/08/18 16:34> Vital Signs 11/08/18 11/08/18 11/08/18 09:10 09:30 10:00 Temperature 103.2 F H Pulse Rate 136 H 134 H 128 H Respiratory 32 H Rate Blood Pressure 174/95 174/95 182/98 O2 Sat by Pulse 98 98 97 Oximetry 11/08/18 11/08/18 11/08/18 10:01 10:10 10:15 Temperature Pulse Rate 131 H 133 H 140 H Respiratory Rate Blood Pressure 141/59 O2 Sat by Pulse Oximetry 11/08/18 11/08/18 11/08/18 10:30 10:45 11:00 Temperature Pulse Rate 126 H 118 H 120 H Respiratory 32 H 26 H 24 Rate Blood Pressure 154/95 148/98 160/111 O2 Sat by Pulse 98 98 98 Oximetry 11/08/18 11/08/18 11:28 11:45 Temperature 102.2 F H Pulse Rate 122 H Respiratory 30 H Rate Blood Pressure 187/102 O2 Sat by Pulse 92 L Oximetry - Reevaluation(s) Reevaluation #1: 11/08/18 12:34 At 11:25 AM Rocephin was ordered for concerns of possible meningitis, no clear source for fever or signs of infection to diagnose sepsis. Additional workup was added including CT of abdomen and pelvis (Kaz Chi) Procedures - Intubation Sedative: Versed Mg Given: 5 Paralytic: Succinylcholine Mg Given: 100 Laryngoscope: Grier Size: 3 ET Tube Size: 8 Tube Secured Location: teeth Tube Placement Confirmation: visualized tube passing through cords, equal breath sounds bilaterally, no breath sounds over epigastrium, confirmation by capnometry Patient Tolerated Procedure: well Intubation Complications: none - Lumbar Puncture Consent Obtained: verbal consent (With family) Indication for Procedure: fever work up Patient Position: right lateral decubitus Local Anesthetic Used: Lidocaine 1% Spinal Needle Gauge: 22G Spinal Needle Length: 3.5in Interspace Used: L3-L4 Fluid Initially Obtained: clear Complications: none Patient Tolerated Procedure: well <Rei Dawkins - Last Filed: 11/08/18 16:55> Medical Decision Making - Lab Data Result diagrams: 11/08/18 09:20 11/08/18 11:10 <Kaz Chi - Last Filed: 11/08/18 16:34> - Lab Data Result diagrams: 11/08/18 09:20 11/08/18 11:10 <Rei Dawkins - Last Filed: 11/08/18 16:55> - Medical Decision Making 68-year-old male presented for new-onset seizure. Patient is found to be altered, febrile, tachycardic and tachypnea. Patient had lab work, CT, EKG, chest x-ray, LT was no evidence of clear source for infection. Patient was given Rocephin and vancomycin for possible meningitis. CSF is pending. I did discuss case with Beena Kelly who accepts transfer from neurology further management. (Kaz Chi) I, Guille Dawkins, personally saw and examined the patient. I have reviewed and agree with the PA findings, including all diagnostic interpretations and treatment plans as written unless otherwise stated. I was present for the sim portions of any procedures performed and the inclusive time noted for any critical care statement. EKG was repeated because the patient became very tachycardic after the intubation. EKG shows a sinus tachycardia at 130 beats a minute FL interval 156 QRS is 90 QT interval 312 QTC is 459. Patient's EKG shows no ST segment elevation or depression. EMS arrived and was packaged and the patient up to be transferred to another facility and when they released the patient's hand he grabbed the ET tube and pulled it out. At this point time I went back in and reintubated the patient with an 802 and a Grier 3 laryngoscope blade. Patient had a repeat x-ray showed good placement of the tube there was good breath sounds bilaterally. Capnography also showed good color change. (Rei Dawkins) - Lab Data Lab Results 11/08/18 11/08/18 11/08/18 Range/Units 09:20 09:20 09:20 WBC 14.5 H (3.8-10.6) k/uL RBC 4.52 (4.30-5.90) m/uL Hgb 14.1 (13.0-17.5) gm/dL Hct 41.4 (39.0-53.0) % MCV 91.6 D (80.0-100.0) fL MCH 31.2 (25.0-35.0) pg MCHC 34.1 (31.0-37.0) g/dL RDW 14.4 (11.5-15.5) % Plt Count 297 (150-450) k/uL Neutrophils % 89 % Lymphocytes % 4 % Monocytes % 6 % Eosinophils % 1 % Basophils % 0 % Neutrophils # 12.9 H (1.3-7.7) k/uL Lymphocytes # 0.6 L (1.0-4.8) k/uL Monocytes # 0.8 (0-1.0) k/uL Eosinophils # 0.1 (0-0.7) k/uL Basophils # 0.0 (0-0.2) k/uL PT 10.7 (9.0-12.0) sec INR 1.0 (<1.2) APTT 19.9 L (22.0-30.0) sec Sample Site ABG pH (7.35-7.45) ABG pCO2 (35-45) mmHg ABG pO2 (83-108) mmHg ABG HCO3 (21-25) mmol/L ABG Total CO2 (19-24) mmol/L ABG O2 Saturation (94-97) % ABG Base Excess mmol/L Nico Test FiO2 % Sodium (137-145) mmol/L Potassium (3.5-5.1) mmol/L Chloride (98-107) mmol/L Carbon Dioxide (22-30) mmol/L Anion Gap mmol/L BUN (9-20) mg/dL Creatinine (0.66-1.25) mg/dL Est GFR (CKD-EPI)AfAm (>60 ml/min/1.73 sqM) Est GFR (CKD-EPI)NonAf (>60 ml/min/1.73 sqM) Glucose (74-99) mg/dL POC Glucose (mg/dL) (75-99) mg/dL POC Glu Machine Tool Technician Instructor ID Lactic Ac Sepsis Rflx Plasma Lactic Acid Isaac 3.9 H* (0.7-2.0) mmol/L Calcium (8.4-10.2) mg/dL Total Bilirubin (0.2-1.3) mg/dL AST (17-59) U/L ALT (21-72) U/L Alkaline Phosphatase (38-126) U/L Ammonia 9 (<30) umol/L Troponin I (0.000-0.034) ng/mL Total Protein (6.3-8.2) g/dL Albumin (3.5-5.0) g/dL Urine Color Urine Appearance (Clear) Urine pH (5.0-8.0) Ur Specific [place] (1.001-1.035) Urine Protein (Negative) Urine Glucose (UA) (Negative) Urine Ketones (Negative) Urine Blood (Negative) Urine Nitrite (Negative) Urine Bilirubin (Negative) Urine Urobilinogen (<2.0) mg/dL Ur Leukocyte Esterase (Negative) Urine RBC (0-5) /hpf Urine WBC (0-5) /hpf Ur Squamous Epith Cells (0-4) /hpf Amorphous Sediment (None) /hpf Urine Bacteria (None) /hpf Cellular Casts (0) /lpf Hyaline Casts (0-2) /lpf Granular Casts (0) /lpf Urine Mucus (None) /hpf Urine Sperm (None) /hpf Urine Opiates Screen (NotDetected) Ur Oxycodone Screen (NotDetected) Urine Methadone Screen (NotDetected) Ur Propoxyphene Screen (NotDetected) Ur Barbiturates Screen (NotDetected) U Tricyclic Antidepress (NotDetected) Ur Phencyclidine Scrn (NotDetected) Ur Amphetamines Screen (NotDetected) U Methamphetamines Scrn (NotDetected) U Benzodiazepines Scrn (NotDetected) Urine Cocaine Screen (NotDetected) U Marijuana (THC) Screen (NotDetected) Influenza Type A RNA (Not Detectd) Influenza Type B (PCR) (Not Detectd) 11/08/18 11/08/18 11/08/18 Range/Units 10:05 10:10 10:10 WBC (3.8-10.6) k/uL RBC (4.30-5.90) m/uL Hgb (13.0-17.5) gm/dL Hct (39.0-53.0) % MCV (80.0-100.0) fL MCH (25.0-35.0) pg MCHC (31.0-37.0) g/dL RDW (11.5-15.5) % Plt Count (150-450) k/uL Neutrophils % % Lymphocytes % % Monocytes % % Eosinophils % % Basophils % % Neutrophils # (1.3-7.7) k/uL Lymphocytes # (1.0-4.8) k/uL Monocytes # (0-1.0) k/uL Eosinophils # (0-0.7) k/uL Basophils # (0-0.2) k/uL PT (9.0-12.0) sec INR (<1.2) APTT (22.0-30.0) sec Sample Site ABG pH (7.35-7.45) ABG pCO2 (35-45) mmHg ABG pO2 (83-108) mmHg ABG HCO3 (21-25) mmol/L ABG Total CO2 (19-24) mmol/L ABG O2 Saturation (94-97) % ABG Base Excess mmol/L Nico Test FiO2 % Sodium (137-145) mmol/L Potassium (3.5-5.1) mmol/L Chloride (98-107) mmol/L Carbon Dioxide (22-30) mmol/L Anion Gap mmol/L BUN (9-20) mg/dL Creatinine (0.66-1.25) mg/dL Est GFR (CKD-EPI)AfAm (>60 ml/min/1.73 sqM) Est GFR (CKD-EPI)NonAf (>60 ml/min/1.73 sqM) Glucose (74-99) mg/dL POC Glucose (mg/dL) (75-99) mg/dL POC Glu Machine Tool Technician Instructor ID Lactic Ac Sepsis Rflx Plasma Lactic Acid Isaac (0.7-2.0) mmol/L Calcium (8.4-10.2) mg/dL Total Bilirubin (0.2-1.3) mg/dL AST (17-59) U/L ALT (21-72) U/L Alkaline Phosphatase (38-126) U/L Ammonia (<30) umol/L Troponin I (0.000-0.034) ng/mL Total Protein (6.3-8.2) g/dL Albumin (3.5-5.0) g/dL Urine Color Yellow Urine Appearance Clear (Clear) Urine pH 6.5 (5.0-8.0) Ur Specific [place] 1.021 (1.001-1.035) Urine Protein 3+ H (Negative) Urine Glucose (UA) Trace H (Negative) Urine Ketones 2+ H (Negative) Urine Blood Large H (Negative) Urine Nitrite Negative (Negative) Urine Bilirubin Negative (Negative) Urine Urobilinogen <2.0 (<2.0) mg/dL Ur Leukocyte Esterase Negative (Negative) Urine RBC 4 (0-5) /hpf Urine WBC 4 (0-5) /hpf Ur Squamous Epith Cells <1 (0-4) /hpf Amorphous Sediment Rare H (None) /hpf Urine Bacteria Rare H (None) /hpf Cellular Casts 6 (0) /lpf Hyaline Casts 6 H (0-2) /lpf Granular Casts 3 (0) /lpf Urine Mucus Occasional H (None) /hpf Urine Sperm Rare (None) /hpf Urine Opiates Screen Detected H (NotDetected) Ur Oxycodone Screen Not Detected (NotDetected) Urine Methadone Screen Not Detected (NotDetected) Ur Propoxyphene Screen Not Detected (NotDetected) Ur Barbiturates Screen Not Detected (NotDetected) U Tricyclic Antidepress Not Detected (NotDetected) Ur Phencyclidine Scrn Not Detected (NotDetected) Ur Amphetamines Screen Not Detected (NotDetected) U Methamphetamines Scrn Not Detected (NotDetected) U Benzodiazepines Scrn Not Detected (NotDetected) Urine Cocaine Screen Not Detected (NotDetected) U Marijuana (THC) Screen Not Detected (NotDetected) Influenza Type A RNA Not Detected (Not Detectd) Influenza Type B (PCR) Not Detected (Not Detectd) 11/08/18 11/08/18 11/08/18 Range/Units 10:22 10:38 11:10 WBC (3.8-10.6) k/uL RBC (4.30-5.90) m/uL Hgb (13.0-17.5) gm/dL Hct (39.0-53.0) % MCV (80.0-100.0) fL MCH (25.0-35.0) pg MCHC (31.0-37.0) g/dL RDW (11.5-15.5) % Plt Count (150-450) k/uL Neutrophils % % Lymphocytes % % Monocytes % % Eosinophils % % Basophils % % Neutrophils # (1.3-7.7) k/uL Lymphocytes # (1.0-4.8) k/uL Monocytes # (0-1.0) k/uL Eosinophils # (0-0.7) k/uL Basophils # (0-0.2) k/uL PT (9.0-12.0) sec INR (<1.2) APTT (22.0-30.0) sec Sample Site ABG pH (7.35-7.45) ABG pCO2 (35-45) mmHg ABG pO2 (83-108) mmHg ABG HCO3 (21-25) mmol/L ABG Total CO2 (19-24) mmol/L ABG O2 Saturation (94-97) % ABG Base Excess mmol/L Nico Test FiO2 % Sodium (137-145) mmol/L Potassium (3.5-5.1) mmol/L Chloride (98-107) mmol/L Carbon Dioxide (22-30) mmol/L Anion Gap mmol/L BUN (9-20) mg/dL Creatinine (0.66-1.25) mg/dL Est GFR (CKD-EPI)AfAm (>60 ml/min/1.73 sqM) Est GFR (CKD-EPI)NonAf (>60 ml/min/1.73 sqM) Glucose (74-99) mg/dL POC Glucose (mg/dL) 140 H (75-99) mg/dL POC Glu Machine Tool Technician Instructor ID November Lactic Ac Sepsis Rflx Y Plasma Lactic Acid Isaac (0.7-2.0) mmol/L Calcium (8.4-10.2) mg/dL Total Bilirubin (0.2-1.3) mg/dL AST (17-59) U/L ALT (21-72) U/L Alkaline Phosphatase (38-126) U/L Ammonia (<30) umol/L Troponin I 0.489 H* (0.000-0.034) ng/mL Total Protein (6.3-8.2) g/dL Albumin (3.5-5.0) g/dL Urine Color Urine Appearance (Clear) Urine pH (5.0-8.0) Ur Specific [place] (1.001-1.035) Urine Protein (Negative) Urine Glucose (UA) (Negative) Urine Ketones (Negative) Urine Blood (Negative) Urine Nitrite (Negative) Urine Bilirubin (Negative) Urine Urobilinogen (<2.0) mg/dL Ur Leukocyte Esterase (Negative) Urine RBC (0-5) /hpf Urine WBC (0-5) /hpf Ur Squamous Epith Cells (0-4) /hpf Amorphous Sediment (None) /hpf Urine Bacteria (None) /hpf Cellular Casts (0) /lpf Hyaline Casts (0-2) /lpf Granular Casts (0) /lpf Urine Mucus (None) /hpf Urine Sperm (None) /hpf Urine Opiates Screen (NotDetected) Ur Oxycodone Screen (NotDetected) Urine Methadone Screen (NotDetected) Ur Propoxyphene Screen (NotDetected) Ur Barbiturates Screen (NotDetected) U Tricyclic Antidepress (NotDetected) Ur Phencyclidine Scrn (NotDetected) Ur Amphetamines Screen (NotDetected) U Methamphetamines Scrn (NotDetected) U Benzodiazepines Scrn (NotDetected) Urine Cocaine Screen (NotDetected) U Marijuana (THC) Screen (NotDetected) Influenza Type A RNA (Not Detectd) Influenza Type B (PCR) (Not Detectd) 11/08/18 11/08/18 11/08/18 Range/Units 11:10 11:20 14:13 WBC (3.8-10.6) k/uL RBC (4.30-5.90) m/uL Hgb (13.0-17.5) gm/dL Hct (39.0-53.0) % MCV (80.0-100.0) fL MCH (25.0-35.0) pg MCHC (31.0-37.0) g/dL RDW (11.5-15.5) % Plt Count (150-450) k/uL Neutrophils % % Lymphocytes % % Monocytes % % Eosinophils % % Basophils % % Neutrophils # (1.3-7.7) k/uL Lymphocytes # (1.0-4.8) k/uL Monocytes # (0-1.0) k/uL Eosinophils # (0-0.7) k/uL Basophils # (0-0.2) k/uL PT (9.0-12.0) sec INR (<1.2) APTT (22.0-30.0) sec Sample Site RRAD ABG pH 7.52 H (7.35-7.45) ABG pCO2 30 L (35-45) mmHg ABG pO2 123 H (83-108) mmHg ABG HCO3 24 (21-25) mmol/L ABG Total CO2 25 H (19-24) mmol/L ABG O2 Saturation 99.1 H (94-97) % ABG Base Excess 1.1 mmol/L Nico Test Yes FiO2 100 % Sodium 141 (137-145) mmol/L Potassium 3.2 L (3.5-5.1) mmol/L Chloride 106 (98-107) mmol/L Carbon Dioxide 24 (22-30) mmol/L Anion Gap 11 mmol/L BUN 22 H (9-20) mg/dL Creatinine 1.26 H (0.66-1.25) mg/dL Est GFR (CKD-EPI)AfAm 66 (>60 ml/min/1.73 sqM) Est GFR (CKD-EPI)NonAf 57 (>60 ml/min/1.73 sqM) Glucose 132 H (74-99) mg/dL POC Glucose (mg/dL) (75-99) mg/dL POC Glu Machine Tool Technician Instructor ID Lactic Ac Sepsis Rflx Plasma Lactic Acid Isaac 0.9 (0.7-2.0) mmol/L Calcium 9.9 (8.4-10.2) mg/dL Total Bilirubin 0.9 (0.2-1.3) mg/dL AST 66 H (17-59) U/L ALT 32 (21-72) U/L Alkaline Phosphatase 90 (38-126) U/L Ammonia (<30) umol/L Troponin I (0.000-0.034) ng/mL Total Protein 6.6 (6.3-8.2) g/dL Albumin 3.8 (3.5-5.0) g/dL Urine Color Urine Appearance (Clear) Urine pH (5.0-8.0) Ur Specific [place] (1.001-1.035) Urine Protein (Negative) Urine Glucose (UA) (Negative) Urine Ketones (Negative) Urine Blood (Negative) Urine Nitrite (Negative) Urine Bilirubin (Negative) Urine Urobilinogen (<2.0) mg/dL Ur Leukocyte Esterase (Negative) Urine RBC (0-5) /hpf Urine WBC (0-5) /hpf Ur Squamous Epith Cells (0-4) /hpf Amorphous Sediment (None) /hpf Urine Bacteria (None) /hpf Cellular Casts (0) /lpf Hyaline Casts (0-2) /lpf Granular Casts (0) /lpf Urine Mucus (None) /hpf Urine Sperm (None) /hpf Urine Opiates Screen (NotDetected) Ur Oxycodone Screen (NotDetected) Urine Methadone Screen (NotDetected) Ur Propoxyphene Screen (NotDetected) Ur Barbiturates Screen (NotDetected) U Tricyclic Antidepress (NotDetected) Ur Phencyclidine Scrn (NotDetected) Ur Amphetamines Screen (NotDetected) U Methamphetamines Scrn (NotDetected) U Benzodiazepines Scrn (NotDetected) Urine Cocaine Screen (NotDetected) U Marijuana (THC) Screen (NotDetected) Influenza Type A RNA (Not Detectd) Influenza Type B (PCR) (Not Detectd) 11/08/18 Range/Units 16:16 WBC (3.8-10.6) k/uL RBC (4.30-5.90) m/uL Hgb (13.0-17.5) gm/dL Hct (39.0-53.0) % MCV (80.0-100.0) fL MCH (25.0-35.0) pg MCHC (31.0-37.0) g/dL RDW (11.5-15.5) % Plt Count (150-450) k/uL Neutrophils % % Lymphocytes % % Monocytes % % Eosinophils % % Basophils % % Neutrophils # (1.3-7.7) k/uL Lymphocytes # (1.0-4.8) k/uL Monocytes # (0-1.0) k/uL Eosinophils # (0-0.7) k/uL Basophils # (0-0.2) k/uL PT (9.0-12.0) sec INR (<1.2) APTT (22.0-30.0) sec Sample Site Right Radial ABG pH 7.39 (7.35-7.45) ABG pCO2 36 (35-45) mmHg ABG pO2 354 H (83-108) mmHg ABG HCO3 22 (21-25) mmol/L ABG Total CO2 23 (19-24) mmol/L ABG O2 Saturation 99.8 H (94-97) % ABG Base Excess -3.2 mmol/L Nico Test Yes FiO2 100 % Sodium (137-145) mmol/L Potassium (3.5-5.1) mmol/L Chloride (98-107) mmol/L Carbon Dioxide (22-30) mmol/L Anion Gap mmol/L BUN (9-20) mg/dL Creatinine (0.66-1.25) mg/dL Est GFR (CKD-EPI)AfAm (>60 ml/min/1.73 sqM) Est GFR (CKD-EPI)NonAf (>60 ml/min/1.73 sqM) Glucose (74-99) mg/dL POC Glucose (mg/dL) (75-99) mg/dL POC Glu Machine Tool Technician Instructor ID Lactic Ac Sepsis Rflx Plasma Lactic Acid Isaac (0.7-2.0) mmol/L Calcium (8.4-10.2) mg/dL Total Bilirubin (0.2-1.3) mg/dL AST (17-59) U/L ALT (21-72) U/L Alkaline Phosphatase (38-126) U/L Ammonia (<30) umol/L Troponin I (0.000-0.034) ng/mL Total Protein (6.3-8.2) g/dL Albumin (3.5-5.0) g/dL Urine Color Urine Appearance (Clear) Urine pH (5.0-8.0) Ur Specific [place] (1.001-1.035) Urine Protein (Negative) Urine Glucose (UA) (Negative) Urine Ketones (Negative) Urine Blood (Negative) Urine Nitrite (Negative) Urine Bilirubin (Negative) Urine Urobilinogen (<2.0) mg/dL Ur Leukocyte Esterase (Negative) Urine RBC (0-5) /hpf Urine WBC (0-5) /hpf Ur Squamous Epith Cells (0-4) /hpf Amorphous Sediment (None) /hpf Urine Bacteria (None) /hpf Cellular Casts (0) /lpf Hyaline Casts (0-2) /lpf Granular Casts (0) /lpf Urine Mucus (None) /hpf Urine Sperm (None) /hpf Urine Opiates Screen (NotDetected) Ur Oxycodone Screen (NotDetected) Urine Methadone Screen (NotDetected) Ur Propoxyphene Screen (NotDetected) Ur Barbiturates Screen (NotDetected) U Tricyclic Antidepress (NotDetected) Ur Phencyclidine Scrn (NotDetected) Ur Amphetamines Screen (NotDetected) U Methamphetamines Scrn (NotDetected) U Benzodiazepines Scrn (NotDetected) Urine Cocaine Screen (NotDetected) U Marijuana (THC) Screen (NotDetected) Influenza Type A RNA (Not Detectd) Influenza Type B (PCR) (Not Detectd) 11/08/18 15:29 Initial EKG performed at 9:12 sinus tachycardia rate of 128 FL 138 QRS 80 QT/QTC 316/461 (Kaz Chi) Critical Care Time Critical Care Time: Yes Total Critical Care Time: 45 <Kaz Chi - Last Filed: 11/08/18 16:34> Critical Care Time: 45 minutes critical care time were used to initially evaluated the patient, obtaining history from family, past medical history, labs, CT, EKG, chest x-ray or ordered. Patient initially was altered felt to be related from Versed given by EMS. Patient had no improvement of GCS. Patient was intubated. There is no clear source for infection this time including chest x-ray, CT of abdomen and pelvis, recent pain pump removal which shows no evidence of infection. Urinalys is is clear of infection. LP was performed which was not cloudy though pending CSF results. Patient vitals have improved after IV fluids, intubation. Patient was given IV of from of and IV ibuprofen. Patient does have a Ortiz in place, antibiotics were given for suspected infection including Rocephin 2 g, vancomycin (Kaz Chi) Disposition - Out of Hospital Transfer - Req. Specs Out of Hospital Transfer - Requested Specifics: Other Emergency Center <Kaz Chi - Last Filed: 11/08/18 16:34> <Rei Dawkins - Last Filed: 11/08/18 16:55> Clinical Impression: New onset seizure, Fever of unknown origin, Altered mental status, Elevated troponin Disposition: OTHER INSTITUTION NOT DEFINED Condition: Fair Referrals: David Suazo MD [Primary Care Provider] - 1-2 days
--- NOTE | 2018-11-08 10:02 | XR ---
EXAMINATION TYPE: XR chest 1V DATE OF EXAM: 11/08/2018 HISTORY: Seizure. REFERENCE: Previous study dated 10/05/2018. FINDINGS: Heart is mildly enlarged. There continues to be mild atelectasis at the left lung base. Ple ural spaces are clear. IMPRESSION: 1. MILD CARDIOMEGALY. 2. PERSISTENT ATELECTASIS, LEFT LUNG BASE.
--- NOTE | 2018-11-08 10:06 | CT ---
EXAMINATION TYPE: CT brain wo con DATE OF EXAM: 11/08/2018 COMPARISON: Previous study dated 04/17/2012 HISTORY: Fall, seizure CT DLP: 1251.4 mGycm Automated exposure control for dose reduction was used. FINDINGS: Central structures are midline. There is an 8 mm retention cyst or polyp involving the left maxillary sinus. The remainder the parana clarissa sinuses and mastoids are clear. The bony calvarium is intact. IMPRESSION: 1. NO ACUTE INTRACRANIAL ABNORMALITY. 2. MILD DEGENERATIVE CHANGE. 3. RETENTION CYST VERSUS POLYP, LEFT MAXILLARY SINUS.
[2018-11-08] MEDS ORDERED: IBUPROFEN IV 800 MG in SODIUM CHLORIDE 0.9% 250 ML IV ONE (10:09)
[2018-11-08 10:22] LABS: Basophils % (A) 0 %; Eosinophils # (A) 0.1 k/uL (0-0.7); Eosinophils % (A) 1 %; HCT 41.4 % (39.0-53.0); HGB 14.1 gm/dL (13.0-17.5); Lymphocytes # (A) 0.6 k/uL (1.0-4.8); Lymphocytes % (A) 4 %; MCH 31.2 pg (25.0-35.0); MCHC 34.1 g/dL (31.0-37.0); Mean Platelet Volume 8.1; Monocytes # (A) 0.8 k/uL (0-1.0); Monocytes % (A) 6 %; Neutrophils # (A) 12.9 k/uL (1.3-7.7); Neutrophils % (A) 89 %; Platelet Count 297 k/uL (150-450); RBC 4.52 m/uL (4.30-5.90); RDW 14.4 % (11.5-15.5); WBC 14.5 k/uL (3.8-10.6)
[2018-11-08 10:25] LABS: Glucose,Whole Blood 140 mg/dL (75-99)
[2018-11-08 10:26] LABS: Prothrombin Time 10.7 sec (9.0-12.0)
[2018-11-08 10:28] LABS: MCV 91.6 fL (80.0-100.0)
[2018-11-08 10:31] LABS: Partial Thromboplastin Time 19.9 sec (22.0-30.0)
[2018-11-08 10:37] LABS: Lactic Acid, Venous 3.9 mmol/L (0.7-2.0)
[2018-11-08 10:55] LABS: Amorphous Sediment,Urine Rare /hpf; Appearance,Urine Clear (Clear); Bacteria,Urine Rare /hpf; Bilirubin,Urine Negative (Negative); Blood,Urine Large (Negative); Cellular Casts,Urine 6 /lpf (0); Color,Urine Yellow; Glucose,Urine (UA) Trace (Negative); Granular Casts,Urine 3 /lpf (0); Hyaline Casts,Urine 6 /lpf (0-2); Ketones,Urine 2+ (Negative); Leukocyte Esterase,Urine Negative (Negative); Mucus,Urine Occasional /hpf; Nitrite,Urine Negative (Negative); PH, Urine 6.5 (5.0-8.0); Protein,Urine 3+ (Negative); RBC,Urine 4 /hpf (0-5); Specific Gravity,Urine 1.021 (1.001-1.035); Sperm,Urine Rare /hpf; Squamous Epithelial Cell,Urine <1 /hpf (0-4); Urobilinogen,Urine <2.0 mg/dL (<2.0); WBC,Urine 4 /hpf (0-5)
[2018-11-08 11:06] LABS: Amphetamine Screen,Urine Not Detected (NotDetected); Barbiturate Screen,Urine Not Detected (NotDetected); Benzodiazepines Screen,Urine Not Detected (NotDetected); Cocaine Screen,Urine Not Detected (NotDetected); Methadone Screen, Urine Not Detected (NotDetected); Opiate Screen,Urine Detected (NotDetected); Phencyclidine Screen,Urine Not Detected (NotDetected); Tricyclic Antidepressant,Urine Not Detected (NotDetected); Urn Cannabinoid Scrn Not Detected (NotDetected)
[2018-11-08 11:07] LABS: Oxycodone Screen, Urine Not Detected (NotDetected)
[2018-11-08] MEDS ORDERED: PIPERACILLIN-TAZOBACTAM 3.375 GM in SODIUM CHLORIDE 0.9% 100 ML IVPB STA (11:18)
[2018-11-08] MEDS ORDERED: cefTRIAXone IN SWFI 1,000 MG/10 ML SYRINGE IVP STA (11:23)
[2018-11-08 11:27] LABS: ABG Base Excess 1.1 mmol/L; ABG HCO3 24 mmol/L (21-25); ABG Oxygen Saturation 99.1 % (94-97); ABG PCO2 30 mmHg (35-45); ABG PH 7.52 (7.35-7.45); ABG PO2 123 mmHg (83-108); ABG TCO2 25 mmol/L (19-24)
[2018-11-08 11:40] LABS: Albumin 3.8 g/dL (3.5-5.0); Calcium 9.9 mg/dL (8.4-10.2); Potassium 3.2 mmol/L (3.5-5.1); Total Bilirubin 0.9 mg/dL (0.2-1.3); Total Protein 6.6 g/dL (6.3-8.2)
[2018-11-08] MEDS ORDERED: SODIUM CHLORIDE 0.9% 1,000 ML IV SCH (12:45)
--- NOTE | 2018-11-08 13:00 | CT ---
EXAMINATION TYPE: CT abdomen pelvis w con DATE OF EXAM: 11/08/2018 REFERENCE: NONE HISTORY: Pain HISTORY: Recent pain pump removal REFERENCE: NONE CT DLP: 1832.3 mGy Automated exposure control for dose reduction was used. TECHNIQUE: Helical acquisition through the abdomen and pelvis was obtained following the oral ingesti on of without Oral Contrast and following intravenous administration of 100 mL of Isovue 300. The amanda a was reformatted in axial, coronal and sagittal projections. FINDINGS: There is mild dependent atelectasis at the lung bases. There is no pleural or pericardial fluid. The heart is mildly enlarged. Within the abdomen, the liver, spleen and gallbladder are normal. Both adrenal glands are normal. There is a 1.5 cm exophytic lesion arising from the mid polar region of the left kidney, likely repre senting a cyst. There are vascular calcifications involving both kidneys. The pancreas is unremarkable. There is moderate atheromatous calcification of the visualized arterial tree. There is a Ortiz catheter within the bladder. There is no significant diverticular change and there is no radiographic evidence of diverticulitis. Much of the colon is collapsed making it difficult to assess colonic wall thickening. The appendix is normal. Small bowel loops are normal in caliber. No free fluid and no free air is seen. There is a 7.3 x 5.1 cm soft tissue lesion in the left lower abdominal wall containing an air-fluid l evel. This is presumably the site of the patient's pain pump removal. There is been a previous ACDF extending from L2 to L5. There is hypertrophic spondylosis above the le khari of fusion. No bony destructive lesion IMPRESSION: 1. POSTSURGICAL CHANGE. 2. PROBABLE CYST ARISING FROM THE LEFT KIDNEY. THIS COULD BE CONFIRMED WITH ULTRASOUND. 3. POSTSURGICAL AND DEGENERATIVE CHANGE WITHIN THE SPINE.
[2018-11-08] MEDS ORDERED: MIDAZOLAM 1 MG/ML 5 ML VIAL IV STA (13:29)
[2018-11-08] MEDS ORDERED: SUCCINYLCHOLINE CHLORIDE VIAL 200 MG/10 ML VIAL IV STA (13:29)
[2018-11-08] MEDS ORDERED: VANCOMYCIN IV PER PHARMACY 1 EACH MISC MISCELLANE PRN (14:01)
[2018-11-08] MEDS ORDERED: VANCOMYCIN 2,000 MG in SODIUM CHLORIDE 0.9% 500 ML 500 ML IVPB STA (14:12)
[2018-11-08] MEDS ORDERED: PROPOFOL 10 MG/ML 20 ML VIAL IV ONE (14:16)
[2018-11-08] MEDS ORDERED: HYDROmorphone 1 MG/ML 1 ML SYRINGE IVP STA (14:16)
[2018-11-08] MEDS ORDERED: ONDANSETRON 4 MG/2 ML VIAL IVP STA (14:16)
[2018-11-08] MEDS ORDERED: PROPOFOL 1,000 MG in EMPTY BAG 1 BAG IV ONE (14:16)
--- NOTE | 2018-11-08 14:29 | XR ---
EXAMINATION TYPE: XR chest 1V portable DATE OF EXAM: 11/08/2018 COMPARISON: Prior chest x-ray dated 11/08/2018 HISTORY: Intubated TECHNIQUE: Single frontal view of the chest is obtained. FINDINGS: Endotracheal tube is overlying the tracheal air column in appropriate position. No pneumot horax or pleural effusion. Heart size is stable. IMPRESSION: No evident complication status post intubation.
[2018-11-08 16:22] LABS: ABG Base Excess -3.2 mmol/L; ABG HCO3 22 mmol/L (21-25); ABG Oxygen Saturation 99.8 % (94-97); ABG PCO2 36 mmHg (35-45); ABG PH 7.39 (7.35-7.45); ABG PO2 354 mmHg (83-108); ABG TCO2 23 mmol/L (19-24)
--- NOTE | 2018-11-08 17:36 | XR ---
EXAMINATION TYPE: XR chest 1V portable DATE OF EXAM: 11/08/2018 COMPARISON: Prior chest x-ray 11/08/2017 and earlier time HISTORY: Interval tube placement TECHNIQUE: Single frontal view of the chest is obtained. FINDINGS: There is been interval placement of an NG tube. Distal tip is within the stomach. Side-por t is proximal to the gastroesophageal junction. Endotracheal tube is overlying appropriate position. Patient is rotated. No other interval change. IMPRESSION: Side-port of the NG tube is within the thoracic esophagus.
[2018-11-08 17:54] LABS: Glucose,CSF 81 mg/dL (40-70); Total Protein,CSF 81 mg/dL (12-60)
[2018-11-08 17:55] LABS: CSF Tube Number 4
[2018-11-08 17:56] LABS: Appearance,CSF Clear; CSF Tube Volume 0.5; Nucleated Cells, CSF 0 u/L (0-5); Red Blood Cell,CSF 2 u/L (0-10)
[2018-11-09 00:02] VITALS: BP 168/78; PULSE 91; RESP 18; TEMP 98.6
[2018-11-09] MEDS ORDERED: VANCOMYCIN 1,750 MG in SODIUM CHLORIDE 0.9% 500 ML 500 ML IVPB SCH (06:00)
== END 2018-11-08 16:59 | disposition other institution (70) ==
LOC: EC 09:05
DX: R56.9 Unspecified convulsions (principal); R50.9 Fever, unspecified; R41.82 Altered mental status, unspecified; R79.89 Other specified abnormal findings of blood chemistry; I25.119 Atherosclerotic heart disease of native coronary artery with unspecified angina pectoris; J44.9 Chronic obstructive pulmonary disease, unspecified; K21.9 Gastro-esophageal reflux disease without esophagitis; E78.5 Hyperlipidemia, unspecified; I10 Essential (primary) hypertension; M19.90 Unspecified osteoarthritis, unspecified site; N40.0 Benign prostatic hyperplasia without lower urinary tract symptoms; K58.9 Irritable bowel syndrome, unspecified; F17.200 Nicotine dependence, unspecified, uncomplicated; Z86.73 Personal history of transient ischemic attack (TIA), and cerebral infarction without residual deficits; Z79.52 Long term (current) use of systemic steroids; Z79.899 Other long term (current) drug therapy; Z88.8 Allergy status to other drugs, medicaments and biological substances; Z96.652 Presence of left artificial knee joint; Z53.8 Procedure and treatment not carried out for other reasons
CPT/HCPCS: 96367 ×3; 96366 ×9; 96375 ×4; 62270 ×2; 31500 ×2; 96361 ×2; 96365 ×2; 99291 ×2; 36415; 94640; 36600; 93005; 84157; 80053; 82945; 82140; 82805; 83605; 84484; 85025; 85610; 85730; 89050; 81001; 80306; 87070; 87205; 87077; 87186; 87502; 71045; 70450; 74177; J3370; J0330; J2405; J0696; J2250; J1170; J0131; J1741; J2704 ×2; Q9967; 94002

== ENCOUNTER 2018-11-21 06:09 | Inpatient (IN) | payer MEDICARE, BC ==
--- NOTE | 2018-11-21 06:14 | ED ---
SOB HPI - General Stated Complaint: KANWAL Time Seen by Provider: 11/21/18 06:11 - History of Present Illness Initial Comments: Celso is a pleasant 68 yo male who is brought in the emergency department today via EMS from a long-term facility for evaluation of difficulty breathing. Patient was recently admitted to L&D he had a morphine pain pump removed and had some withdrawal. He does have underlying COPD and chronic shortness of breath. He was transferred to medical on she yesterday. This morning he is having difficulty breathing was found to have oxygen saturation in the low 70s using a nasal CPAP. He was transitioned to CPAP by EMS for transport to the hospital and upon arrival was placed on BiPAP. Patient reports that he suffers from chronic pain in his back and arms, this is unchanged this morning. - Related Data Home Medications Medication Instructions Recorded Confirmed HYDROcodone/APAP 10-325MG [[place] 1 tab PO Q6H PRN 12/01/15 11/21/18 10-325] Omeprazole [PriLOSEC] 40 mg PO BID 06/25/16 11/21/18 Gabapentin [Neurontin] 400 mg PO QID 05/19/18 11/21/18 Multivitamins, Thera [Multivitamin 1 tab PO DAILY 05/19/18 11/21/18 (formulary)] Naproxen 500 mg PO BID PRN 05/19/18 11/21/18 Tamsulosin HCl [Flomax] 0.4 mg PO HS 05/19/18 11/21/18 Apixaban [Eliquis] 5 mg PO BID 11/21/18 11/21/18 Aspirin 81 mg PO DAILY 11/21/18 11/21/18 Digoxin 250 mcg PO DAILY 11/21/18 11/21/18 Diltiazem HCl 90 mg PO Q6HR 11/21/18 11/21/18 Ipratropium Nebulized [Atrovent 0.5 mg INHALATION RT-Q6H PRN 11/21/18 11/21/18 Nebulized 0.2 MG/ML] Ipratropium-Albuterol Nebulize 1 ampul INHALATION QID 11/21/18 11/21/18 [Duoneb 0.5 mg-3 mg/3 ml Soln] Metoprolol Tartrate [Lopressor] 100 mg PO Q6HR 11/21/18 11/21/18 Ondansetron [Zofran ODT] 4 mg PO Q6HR PRN 11/21/18 11/21/18 Potassium Chloride ER [K-Dur 20] 20 meq PO BID 11/21/18 11/21/18 predniSONE 20 mg PO DAILY 11/21/18 11/21/18 Previous Rx's Medication Instructions Recorded Cyclobenzaprine [Flexeril] 10 mg PO TID PRN #0 05/22/18 Budesonide-Formot 160-4.5 Mcg 1 puff INHALATION RT-BID PRN #0 05/26/18 [Symbicort 160-4.5 Mcg Inhaler] Allergies Allergy/AdvReac Type Severity Reaction Status Date / Time montelukast sodium Allergy Itching Verified 11/21/18 06:56 [From [facility]] Review of Systems ROS Statement: Those systems with pertinent positive or pertinent negative responses have been documented in the HPI. ROS Other: All systems not noted in ROS Statement are negative. 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 History of Any Multi-Drug Resistant Organisms: None Reported Past Surgical History: Adenoidectomy, Back Surgery, Heart Catheterization, Hernia Repair, Joint Replacement, Orthopedic Surgery, Tonsillectomy Additional Past Surgical History / Comment(s): L knee replacement, back surgery x2-failed fusion and 2 rods in lower back, L/R cataract surgery, bilat. rib removal (cervical), carpal tunnel R wrist, colonoscopy, L elbow surgery, abdominal hernia repair, 3 R inguinal hernia repairs, L inguinal hernia repair, rectal cystectomy.pain pump(ms) implanted -2017 Past Anesthesia/Blood Transfusion Reactions: Previous Problems w/ Anesthesia Additional Past Anesthesia/Blood Transfusion Reaction / Comment(s): With first surgery became belligerent when waking up. Past Psychological History: No Psychological Hx Reported Smoking Status: Current every day smoker - Past Family History Mother Family Medical History: No Reported History Additional Family Medical History / Comment(s): Mother was healthy and lived to be 88 or 89yrs old. Father Family Medical History: Cancer Additional Family Medical History / Comment(s): Father of lung cancer in his early 70's. General Exam - General Exam Comments Initial Comments: Physical Exam GENERAL: Chronicall ill appearing Acute respiratory distress HENT: Normocephalic, Atraumatic. EYES: PERRL, EOMI PULMONARY: Tachypnea Crackles at bases CARDIOVASCULAR: irregularly irregular tachycardic ABDOMEN: Well healing surgical incision on LLQ Non-tender SKIN: Skin is clear with no lesions or rashes and otherwise unremarkable. : Deferred NEUROLOGIC: Awake and alert MUSCULOSKELETAL: Lower extremity edema PSYCHIATRIC: Unable to assess Course Vital Signs 11/21/18 11/21/18 11/21/18 06:10 06:23 06:38 Temperature 98.7 F Pulse Rate 124 H 131 H 131 H Respiratory 40 H 27 H 29 H Rate Blood Pressure 144/90 127/84 109/83 O2 Sat by Pulse 91 L 95 95 Oximetry Medical Decision Making - Medical Decision Making Shunt was seen and evaluated immediately upon arrival to the emergency department patient was noted to be in respiratory distress and was immediately placed on BiPAP Patient was recently admitted at outside hospital he now is experiencing worsening shortness of breath Labs and imaging ordered Labs reveal leukocytosis with a white count of 25 chest x-ray concerning for left lower lobe pneumonia given the patient was recently hospital he will be treated for age Pneumonia with mitomycin and Zosyn Labs also reveal mildly elevated troponin 0.05 as well as elevated BNP consistent with heart failure Patient's oral medications as well as IV Lopressor were ordered for heart rate management Results discussed with admitting physician Dr. Davey around him who agrees with plan for admission for age Pneumonia and acute respiratory distress requiring BiPAP support - Lab Data Result diagrams: 11/21/18 06:15 11/21/18 06:15 Lab Results 11/21/18 11/21/18 11/21/18 Range/Units 06:14 06:15 06:15 WBC 20.0 H (3.8-10.6) k/uL RBC 4.77 (4.30-5.90) m/uL Hgb 14.5 (13.0-17.5) gm/dL Hct 45.6 (39.0-53.0) % MCV 95.5 (80.0-100.0) fL MCH 30.3 (25.0-35.0) pg MCHC 31.7 (31.0-37.0) g/dL RDW 14.0 (11.5-15.5) % Plt Count 367 (150-450) k/uL Neutrophils % 88 % Lymphocytes % 7 % Monocytes % 3 % Eosinophils % 1 % Basophils % 0 % Neutrophils # 17.6 H (1.3-7.7) k/uL Lymphocytes # 1.4 (1.0-4.8) k/uL Monocytes # 0.6 (0-1.0) k/uL Eosinophils # 0.2 (0-0.7) k/uL Basophils # 0.1 (0-0.2) k/uL PT (9.0-12.0) sec INR (<1.2) APTT (22.0-30.0) sec Sodium 141 (137-145) mmol/L Potassium 4.2 (3.5-5.1) mmol/L Chloride 104 (98-107) mmol/L Carbon Dioxide 25 (22-30) mmol/L Anion Gap 12 mmol/L BUN 29 H (9-20) mg/dL Creatinine 0.84 (0.66-1.25) mg/dL Est GFR (CKD-EPI)AfAm >90 (>60 ml/min/1.73 sqM) Est GFR (CKD-EPI)NonAf 89 (>60 ml/min/1.73 sqM) Glucose 112 H (74-99) mg/dL POC Glucose (mg/dL) 113 H (75-99) mg/dL POC Glu Waste Reclaimer ID Kaity Cooper Calcium 10.7 H (8.4-10.2) mg/dL Magnesium 2.0 (1.6-2.3) mg/dL Total Bilirubin 0.8 (0.2-1.3) mg/dL AST 27 (17-59) U/L ALT 38 (21-72) U/L Alkaline Phosphatase 93 (38-126) U/L Troponin I (0.000-0.034) ng/mL NT-Pro-B Natriuret Pep pg/mL Total Protein 7.2 (6.3-8.2) g/dL Albumin 3.8 (3.5-5.0) g/dL 11/21/18 11/21/18 11/21/18 Range/Units 06:15 06:15 06:15 WBC (3.8-10.6) k/uL RBC (4.30-5.90) m/uL Hgb (13.0-17.5) gm/dL Hct (39.0-53.0) % MCV (80.0-100.0) fL MCH (25.0-35.0) pg MCHC (31.0-37.0) g/dL RDW (11.5-15.5) % Plt Count (150-450) k/uL Neutrophils % % Lymphocytes % % Monocytes % % Eosinophils % % Basophils % % Neutrophils # (1.3-7.7) k/uL Lymphocytes # (1.0-4.8) k/uL Monocytes # (0-1.0) k/uL Eosinophils # (0-0.7) k/uL Basophils # (0-0.2) k/uL PT 10.3 (9.0-12.0) sec INR 1.0 (<1.2) APTT 21.9 L (22.0-30.0) sec Sodium (137-145) mmol/L Potassium (3.5-5.1) mmol/L Chloride (98-107) mmol/L Carbon Dioxide (22-30) mmol/L Anion Gap mmol/L BUN (9-20) mg/dL Creatinine (0.66-1.25) mg/dL Est GFR (CKD-EPI)AfAm (>60 ml/min/1.73 sqM) Est GFR (CKD-EPI)NonAf (>60 ml/min/1.73 sqM) Glucose (74-99) mg/dL POC Glucose (mg/dL) (75-99) mg/dL POC Glu Waste Reclaimer ID Calcium (8.4-10.2) mg/dL Magnesium (1.6-2.3) mg/dL Total Bilirubin (0.2-1.3) mg/dL AST (17-59) U/L ALT (21-72) U/L Alkaline Phosphatase (38-126) U/L Troponin I 0.051 H* (0.000-0.034) ng/mL NT-Pro-B Natriuret Pep 1760 pg/mL Total Protein (6.3-8.2) g/dL Albumin (3.5-5.0) g/dL - EKG Data EKG Comments: KG EKG was obtained at 6:12 AM rate is 138 rhythm is atrial fibrillation with rapid ventricular response there is normal axis there are normal intervals, QRS is 92 QTc is 4:15, can't respiratory variation emanating evaluation for any minor ST depressions however there is no obvious ST elevations. Critical Care Time Critical Care Time: Yes Total Critical Care Time: 30 Disposition Clinical Impression: HCAP (healthcare-associated pneumonia), Atrial fibrillation with RVR, Heart fa ilure, Sepsis, Pneumonia, Altered mental status, Acute exacerbation of chronic obstructive airways disease Disposition: ADMITTED IP TO THIS HOSP Condition: Serious Is patient prescribed a controlled substance at d/c from ED?: No Referrals: David Suazo MD [Primary Care Provider] - 1-2 days
[2018-11-21 06:30] LABS: Basophils # (A) 0.1 k/uL (0-0.2); Basophils % (A) 0 %; Eosinophils # (A) 0.2 k/uL (0-0.7); Eosinophils % (A) 1 %; HCT 45.6 % (39.0-53.0); HGB 14.5 gm/dL (13.0-17.5); Lymphocytes # (A) 1.4 k/uL (1.0-4.8); Lymphocytes % (A) 7 %; MCH 30.3 pg (25.0-35.0); MCHC 31.7 g/dL (31.0-37.0); MCV 95.5 fL (80.0-100.0); Mean Platelet Volume 7.5; Monocytes # (A) 0.6 k/uL (0-1.0); Monocytes % (A) 3 %; Neutrophils # (A) 17.6 k/uL (1.3-7.7); Neutrophils % (A) 88 %; Platelet Count 367 k/uL (150-450); RBC 4.77 m/uL (4.30-5.90)
[2018-11-21] MEDS ORDERED: MORPHINE SULFATE 4 MG/ML SYRINGE IVP STA (06:30)
[2018-11-21 06:34] LABS: Glucose,Whole Blood 113 mg/dL (75-99)
--- NOTE | 2018-11-21 06:45 | XR ---
EXAM: XR Chest, 1 View CLINICAL HISTORY: chest pain TECHNIQUE: Frontal view of the chest. COMPARISON: 11/08/18 FINDINGS: Lungs: Lower lobe consolidation which is new compared to prior study Pleural space: Unremarkable. No pneumothorax. Heart: Unremarkable. No cardiomegaly. Mediastinum: Unremarkable. Bones/joints: Unremarkable. IMPRESSION: Left lower lobe consolidation
[2018-11-21 06:49] LABS: Prothrombin Time 10.3 sec (9.0-12.0)
[2018-11-21 06:50] LABS: ALT 38 U/L (21-72); AST 27 U/L (17-59); Albumin 3.8 g/dL (3.5-5.0); Alkaline Phosphatase 93 U/L (38-126); Anion Gap 12 mmol/L; Blood Urea Nitrogen 29 mg/dL (9-20); Calcium 10.7 mg/dL (8.4-10.2); Carbon Dioxide 25 mmol/L (22-30); Chloride 104 mmol/L (98-107); Glucose 112 mg/dL (74-99); Potassium 4.2 mmol/L (3.5-5.1); Sodium 141 mmol/L (137-145); Total Bilirubin 0.8 mg/dL (0.2-1.3); Total Protein 7.2 g/dL (6.3-8.2)
[2018-11-21 07:12] LABS: Partial Thromboplastin Time 21.9 sec (22.0-30.0)
[2018-11-21] MEDS ORDERED: PIPERACILLIN-TAZOBACTAM 3.375 GM in SODIUM CHLORIDE 0.9% 100 ML IVPB STA (07:17)
[2018-11-21] MEDS ORDERED: VANCOMYCIN IV PER PHARMACY 1 EACH MISC MISCELLANE PRN (07:17)
[2018-11-21] MEDS ORDERED: DILTIAZEM ORAL 30 MG TAB PO STA (07:29)
[2018-11-21] MEDS ORDERED: METOPROLOL TARTRATE 50 MG TAB PO STA (07:30)
[2018-11-21] MEDS ORDERED: METOPROLOL TARTRATE 5 MG/5 ML VIAL IVP STA (07:32)
[2018-11-21] MEDS ORDERED: PNEUMONIA PROTOCOL UTILIZED 1 EACH MISC PO PRN (07:36)
[2018-11-21] MEDS ORDERED: IPRATROPIUM-ALBUTEROL 3 ML NEB INHALATION PRN (07:36)
[2018-11-21] MEDS ORDERED: VANCOMYCIN 2,000 MG in SODIUM CHLORIDE 0.9% 500 ML 500 ML IVPB ONE (08:00)
[2018-11-21] MEDS ORDERED: ACETAMINOPHEN TAB 325 MG TAB PO PRN (10:32)
[2018-11-21] MEDS ORDERED: NALOXONE 0.4 MG/ML 1 ML VIAL IV PRN (10:37)
--- NOTE | 2018-11-21 10:54 | CONS ---
CONSULTATION CHIEF COMPLAINT: Shortness of breath. Mr. Khanna is a 68-year-old gentleman with history of paroxysmal atrial fibrillation, COPD, hypertension who was admitted to [facility], was sent to a half-way locally just 2 days ago, developed worsening shortness of breath, brought to the ER where he had been diagnosed with pneumonia and is currently being treated with IV antibiotics. I have been asked to see him because of atrial fibrillation with rapid ventricular rate. The patient apparently was cardioverted and a community coordinator for high school had seen him at the other institution. At the time of my evaluation this morning, heart rate is better controlled. He is on a non-rebreather, oxygenating fairly well and still in atrial fibrillation, but with controlled ventricular rate. PAST MEDICAL HISTORY: Past medical history is significant for COPD, atrial fibrillation, hypertension. MEDICATIONS: Medications at home included Flomax, K-Dur 20 b.i.d., Prilosec 40 b.i.d., naproxen, Lopressor 100 mg q.6 hours, Nexium, Cardizem 90 q.6, digoxin 250, Flexeril, Symbicort, Lipitor, aspirin and Eliquis 5 b.i.d. ALLERGIES: Allergic to SINGULAIR. FAMILY HISTORY: Family history is negative for premature coronary artery disease. SOCIAL HISTORY: , EtOH abuse, or drug abuse. REVIEW OF SYSTEMS: HEENT is unremarkable. CARDIAC: As described above. RESPIRATORY: As described above. GI: Negative, GENITOURINARY: Negative. ALLERGY/IMMUNOLOGY: Negative. SKIN: Negative. MUSCULOSKELETAL: Significant for arthritis. PSYCHOSOCIAL: Negative. ENDOCRINE: Negative. HEMATOLOGICAL: Negative. DERM: Negative. CONSTITUTIONAL: Negative. ONCOLOGICAL: Negative. Rest of the system review is not relevant. PAST SURGICAL HISTORY: Significant for back surgery, cataract surgery, carpal tunnel surgery, hernia repair. PHYSICAL EXAMINATION: On exam, patient is comfortable at rest. Heart rate is 90 beats per minute. Blood pressure is 140/80. Respiratory rate is 22. There is no jugular venous distention. Chest exam reveals bilateral occasional rhonchi. Heart exam reveals first and second heart sounds. No gallop. No murmur. Abdomen is soft, nontender. Examination of extremities reveals 1+ edema. Peripheral pulses are felt. LABS: Labs show a hemoglobin of 14.5, white cell count is 20. Potassium is 4.2. Creatinine is 0.8. Troponin is 0.05. BNP is 1760. ASSESSMENT: 1. Chronic atrial fibrillation with poorly controlled ventricular rate. 2. Pneumonia. 3. History of chronic obstructive pulmonary disease. PLAN: Will review records from [facility]. Mild troponin elevation is of unclear clinical significance. I will obtain a 2D echo on him to reassess the LV function. He is already in multiple medications to control his heart rate, which I am going to continue. MMODL / DANIAN: [id number] /
[2018-11-21] MEDS: APIXABAN 5 MG TAB PO SCH ×2 (11:16→21:14)
[2018-11-21] MEDS: IPRATROPIUM-ALBUTEROL 3 ML NEB INHALATION SCH ×4 (11:24→23:40)
--- NOTE | 2018-11-21 11:42 | P.CNPUL ---
History of Present Illness Consult date: 11/21/18 Requesting physician: Davonte Bundy Reason for consult: dyspnea Chief complaint: Shortness of breath History of present illness: This is a very pleasant 68-year-old gentleman follows Dr. Suazo as his primary care physician. He has a history of coronary artery disease, CVA/TIA, GERD, hypertension, hyperlipidemia, Ana Laura arthritis, benign prostatic hypertrophy, irritable bowel syndrome. Has has a history of Gold stage III chronic obstructive pulmonary disease and follows with Dr. Bravo in our office for the same. He is a 56 year history of smoking 2-3 packs per day however quit in 2017. He's been maintained on DuoNeb inhalations and Symbicort in the outpatient setting. He also is known to have a left upper lobe lung nodule measuring 1 cm. PET scan revealed no suspicious hypermetabolic uptake. This is being followed in the outpatient setting. He presented here to the emergency room yesterday with complaints of difficulty breathing from the extended care facility he was discharged to from here on 10/05/2018. He was found to have oxygen saturations in the 70s using a nasal cannula. Chest x-ray revealed a new left lower lobe consolidation compared to previous on 11/08/2018. White count 20, hemoglobin 14.5. Creatinine 0.84. Troponin 0.051. ProBNP 1760. He is seen today in consultation on the selective care unit. He is currently awake and alert In a chair at the bedside. Currently on 50% nonrebreather mask he's been afebrile. He did wear her BiPAP throughout the night. He is having issues with atrial fibrillation with a rapid ventricular response. He is anticoagulated with Eliquis. He has been initiated on DuoNeb inhalations, prednisone, vancomycin. Review of Systems Constitutional: Reports lethargy, Reports malaise, Reports weakness, Denies chills, Denies fever Eyes: denies blurred vision, denies pain Ears, nose, mouth and throat: Denies headache, Denies sore throat Cardiovascular: Denies chest pain, Denies shortness of breath Respiratory: Reports congestion, Reports cough with sputum, Reports dyspnea, Reports hemoptysis, Reports home oxygen, Reports respiratory infections, Denies cough Gastrointestinal: Denies abdominal pain, Denies diarrhea, Denies nausea, Denies vomiting Musculoskeletal: Denies myalgias Integumentary: Denies pruritus, Denies rash Neurological: Reports change in mentation, Denies numbness, Denies weakness Psychiatric: Denies anxiety, Denies depression Endocrine: Denies fatigue, Denies weight change Past Medical History Past Medical History: Coronary Artery Disease (CAD), Chest Pain / Angina, COPD, CVA/TIA, Eye Disorder, GERD/Reflux, Hyperlipidemia, Hypertension, Osteoarthritis (OA), Prostate Disorder Additional Past Medical History / Comment(s): BPH, 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 History of Any Multi-Drug Resistant Organisms: None Reported Past Surgical History: Adenoidectomy, Back Surgery, Heart Catheterization, Hernia Repair, Joint Replacement, Orthopedic Surgery, Tonsillectomy Additional Past Surgical History / Comment(s): L knee replacement, back surgery x2-failed fusion and 2 rods in lower back, L/R cataract surgery, bilat. rib removal (cervical), carpal tunnel R wrist, colonoscopy, L elbow surgery, abdominal hernia repair, 3 R inguinal hernia repairs, L inguinal hernia repair, rectal cystectomy.pain pump(ms) implanted removed 11/06/2018 Past Anesthesia/Blood Transfusion Reactions: Previous Problems w/ Anesthesia Additional Past Anesthesia/Blood Transfusion Reaction / Comment(s): With first surgery became belligerent when waking up. Past Psychological History: No Psychological Hx Reported Additional Psychological History / Comment(s): Pt resides with his spouse. He uses a cane to ambulate. has nebulizer He drives. 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 Smoking Status: Former smoker Past Alcohol Use History: None Reported Additional Past Alcohol Use History / Comment(s): No smoking since May 2018 Past Drug Use History: None Reported - Past Family History Mother Family Medical History: No Reported History Additional Family Medical History / Comment(s): Mother was healthy and lived to be 88 or 89yrs old. Father Family Medical History: Cancer Additional Family Medical History / Comment(s): Father of lung cancer in his early 70's. Medications and Allergies Home Medications Medication Instructions Recorded Confirmed Type HYDROcodone/APAP 10-325MG [[place] 1 tab PO Q6H PRN 12/01/15 11/21/18 History 10-325] Omeprazole [PriLOSEC] 40 mg PO BID 06/25/16 11/21/18 History Gabapentin [Neurontin] 400 mg PO QID 05/19/18 11/21/18 History Multivitamins, Thera [Multivitamin 1 tab PO DAILY 05/19/18 11/21/18 History (formulary)] Naproxen 500 mg PO BID PRN 05/19/18 11/21/18 History Tamsulosin HCl [Flomax] 0.4 mg PO HS 05/19/18 11/21/18 History Cyclobenzaprine [Flexeril] 10 mg PO TID PRN #0 05/22/18 11/21/18 Rx Budesonide-Formot 160-4.5 Mcg 1 puff INHALATION RT-BID PRN #0 05/26/18 11/21/18 Rx [Symbicort 160-4.5 Mcg Inhaler] Apixaban [Eliquis] 5 mg PO BID 11/21/18 11/21/18 History Aspirin 81 mg PO DAILY 11/21/18 11/21/18 History Atorvastatin [Lipitor] 80 mg PO HS 11/21/18 11/21/18 History Digoxin 250 mcg PO DAILY 11/21/18 11/21/18 History Diltiazem HCl 90 mg PO Q6HR 11/21/18 11/21/18 History Esomeprazole Magnesium [NexIUM] 40 mg PO DAILY 11/21/18 11/21/18 History Ipratropium Nebulized [Atrovent 0.5 mg INHALATION RT-Q6H PRN 11/21/18 11/21/18 History Nebulized 0.2 MG/ML] Ipratropium-Albuterol Nebulize 1 ampul INHALATION QID 11/21/18 11/21/18 History [Duoneb 0.5 mg-3 mg/3 ml Soln] Metoprolol Tartrate [Lopressor] 100 mg PO Q6HR 11/21/18 11/21/18 History Ondansetron [Zofran ODT] 4 mg PO Q6HR PRN 11/21/18 11/21/18 History Potassium Chloride ER [K-Dur 20] 20 meq PO BID 11/21/18 11/21/18 History predniSONE 20 mg PO DAILY 11/21/18 11/21/18 History Allergies Allergy/AdvReac Type Severity Reaction Status Date / Time montelukast sodium Allergy Itching Verified 11/21/18 09:27 [[facility] Physical Exam Vitals: Vital Signs Temp Pulse Resp BP Pulse Ox 11/21/18 08:51 95 11/21/18 08:21 98 28 H 140/87 95 11/21/18 07:44 130 H 32 H 117/78 96 11/21/18 06:38 131 H 29 H 109/83 95 11/21/18 06:23 98.7 F 131 H 27 H 127/84 95 11/21/18 06:10 124 H 40 H 144/90 91 L Intake and Output 11/20/18 11/21/18 11/21/18 22:59 06:59 14:59 Intake Total 100 Balance 100 Intake: Intake, IV Titration 100 Amount Piperacillin-Tazobactam 3 100 .375 gm In Sodium Chloride 0.9% 100 ml @ 25 mls/hr IVPB ONCE STA Rx# :[id number] Other: Weight 102.965 kg GENERAL EXAM: Alert, pleasant, 68-year-old white male patient, the on 15 L Ve ntimask with a pulse ox of 95%, comfortable in no apparent distress. HEAD: Normocephalic/atraumatic. EYES: Normal reaction of pupils, equal size. Conjunctiva pink, sclera white. NOSE: Clear with pink turbinates. THROAT: No erythema or exudates. NECK: No masses, no JVD, no thyroid enlargement, no adenopathy. CHEST: No chest wall deformity. Symmetrical expansion. LUNGS: Diminished breath sounds, with the expiratory wheezes and rhonchi at the bases, more so on the left CVS: Regular rate and rhythm, normal S1 and S2, no gallops, no murmurs, no rubs ABDOMEN: Soft, nontender. No hepatosplenomegaly, normal bowel sounds, no guarding or rigidity. EXTREMITIES: No clubbing, no edema, no cyanosis, 2+ pulses and upper and lower extremities. MUSCULOSKELETAL: Muscle strength and tone normal. SPINE: No scoliosis or deformity SKIN: No rashes CENTRAL NERVOUS SYSTEM: No focal deficits, tone is normal in all 4 extremities. PSYCHIATRIC: Alert and oriented -3. Appropriate affect. Intact judgment and insight. Results - Laboratory Findings CBC and BMP: 11/21/18 06:15 11/21/18 06:15 PT/INR, D-dimer PT 10.3 sec (9.0-12.0) 11/21/18 06:15 INR 1.0 (<1.2) 11/21/18 06:15 Abnormal lab findings: Abnormal Labs 11/21/18 11/21/18 11/21/18 06:14 06:15 06:15 WBC 20.0 H Neutrophils # 17.6 H APTT BUN 29 H Glucose 112 H POC Glucose (mg/dL) 113 H Calcium 10.7 H Troponin I 11/21/18 11/21/18 06:15 06:15 WBC Neutrophils # APTT 21.9 L BUN Glucose POC Glucose (mg/dL) Calcium Troponin I 0.051 H* - Diagnostic Findings Chest x-ray: image reviewed Assessment and Plan Assessment: Impression: #1 Acute on chronic hypoxemic respiratory failure secondary to an acute left lower lobe infiltrate, suspect healthcare acquired pneumonia. Previous history of Serratia marcescens. #2 Atrial fibrillation with a rapid ventricular response, anticoagulated with Eliquis. On oral Cardizem, Lopressor, digoxin. #3 COPD, on home oxygen at bedtime, patient has an underlying FEV1 1.59 L or 48% of predicted, stage III COPD #4 History of CVA/TIA #5 Coronary artery disease #6 Solitary lung nodule in the left upper lobe, measuring 1 cm, the PET scan was completed and there was no suspicious uptake. This is being followed with the CT chest every 6 months #7 Hypertension, hyperlipidemia #8 Osteoarthritis #9 BPH #10 IBS #11 History of 53 years of smoking, of 2-3 packs per day, patient quit smoking in May 2018 #12 GERD/reflux Plan: The patient was seen and evaluated by Dr. Mendenhall. Chest x-ray and labs were reviewed. We'll continue with antibiotics, DuoNeb inhalations, prednisone. We will add Pulmicort and Perforomist inhalations. We will increase his activity as tolerated. We'll continue to follow and make further recommendations based on his clinical status. I, the cosigning physician, performed a history & physical examination of the patient. Lungs sounds with few scattered rhonchi or crackles in left base, end expiratory wheeze, diminished. Maintaining good O2 saturations in the 90s on 15 L per Ventimask. I discussed the assessment and plan of care with my nurse practitioner, Radha Valenzuela. I attest to the above note as dictated by her. Time with Patient: Greater than 30
[2018-11-21] MEDS ORDERED: SODIUM CHLORIDE 0.9% 1,000 ML IV SCH (12:15)
--- NOTE | 2018-11-21 12:21 | P.HPIM ---
History of Present Illness H&P Date: 11/21/18 Chief Complaint: Shortness of breath 68-year-old male with PMH of CAD, COPD, hypertension, history of CVA percent the ED for shortness of breath. is present at bedside providing majority of the history. Patient was recently seen at [facility] on November 08 in the ED for seizure, where he was intubated to protect his airway and was transferred to [facility] where a battery of tests were run which was unrevealing to the cause of seizure. reports that the patient was discharged yesterday to [facility]. She received a call this morning that the patient appeared short of breath with low O2 saturation which prompted the staff to call EMS. Patient does complain of a chronic cough productive of yellow sputum. Patient reports smoking 2 packs of cigarettes daily since age 14, quit since May. He denies any alcohol or illicit drug use. Patient also complains of a weird sensation up his right nostril. Of note, patient had a pain pump was removed on 11/06/2018. In the ED, CBC showed leukocytosis of 20. CMP showed a BUNs of 29, glucose of 112. Initial troponin was 0.051, EKG showing atrial fibrillation with RVR. BNP was 1760. Chest x-ray showed left lower lobe consolidation. Patient was initially started on BiPAP was transitioned to a nonrebreather mask. Patient is admitted for acute hypoxic respiratory failure. Review of Systems Unable to obtain from patient due to respiratory distress. 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 History of Any Multi-Drug Resistant Organisms: None Reported Past Surgical History: Adenoidectomy, Back Surgery, Heart Catheterization, Hernia Repair, Joint Replacement, Orthopedic Surgery, Tonsillectomy Additional Past Surgical History / Comment(s): L knee replacement, back surgery x2-failed fusion and 2 rods in lower back, L/R cataract surgery, bilat. rib removal (cervical), carpal tunnel R wrist, colonoscopy, L elbow surgery, abdominal hernia repair, 3 R inguinal hernia repairs, L inguinal hernia repair, rectal cystectomy.pain pump(ms) implanted removed 11/06/2018 Past Anesthesia/Blood Transfusion Reactions: Previous Problems w/ Anesthesia Additional Past Anesthesia/Blood Transfusion Reaction / Comment(s): With first surgery became belligerent when waking up. Past Psychological History: No Psychological Hx Reported Additional Psychological History / Comment(s): Pt resides with his spouse. He uses a cane to ambulate. has nebulizer He drives. 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 Smoking Status: Former smoker Past Alcohol Use History: None Reported Additional Past Alcohol Use History / Comment(s): No smoking since May 2018 Past Drug Use History: None Reported - Past Family History Mother Family Medical History: No Reported History Additional Family Medical History / Comment(s): Mother was healthy and lived to be 88 or 89yrs old. Father Family Medical History: Cancer Additional Family Medical History / Comment(s): Father of lung cancer in his early 70's. Medications and Allergies Home Medications Medication Instructions Recorded Confirmed Type HYDROcodone/APAP 10-325MG [[place] 1 tab PO Q6H PRN 12/01/15 11/21/18 History 10-325] Omeprazole [PriLOSEC] 40 mg PO BID 06/25/16 11/21/18 History Gabapentin [Neurontin] 400 mg PO QID 05/19/18 11/21/18 History Multivitamins, Thera [Multivitamin 1 tab PO DAILY 05/19/18 11/21/18 History (formulary)] Naproxen 500 mg PO BID PRN 05/19/18 11/21/18 History Tamsulosin HCl [Flomax] 0.4 mg PO HS 05/19/18 11/21/18 History Cyclobenzaprine [Flexeril] 10 mg PO TID PRN #0 05/22/18 11/21/18 Rx Budesonide-Formot 160-4.5 Mcg 1 puff INHALATION RT-BID PRN #0 05/26/18 11/21/18 Rx [Symbicort 160-4.5 Mcg Inhaler] Apixaban [Eliquis] 5 mg PO BID 11/21/18 11/21/18 History Aspirin 81 mg PO DAILY 11/21/18 11/21/18 History Atorvastatin [Lipitor] 80 mg PO HS 11/21/18 11/21/18 History Digoxin 250 mcg PO DAILY 11/21/18 11/21/18 History Diltiazem HCl 90 mg PO Q6HR 11/21/18 11/21/18 History Esomeprazole Magnesium [NexIUM] 40 mg PO DAILY 11/21/18 11/21/18 History Ipratropium Nebulized [Atrovent 0.5 mg INHALATION RT-Q6H PRN 11/21/18 11/21/18 History Nebulized 0.2 MG/ML] Ipratropium-Albuterol Nebulize 1 ampul INHALATION QID 11/21/18 11/21/18 History [Duoneb 0.5 mg-3 mg/3 ml Soln] Metoprolol Tartrate [Lopressor] 100 mg PO Q6HR 11/21/18 11/21/18 History Ondansetron [Zofran ODT] 4 mg PO Q6HR PRN 11/21/18 11/21/18 History Potassium Chloride ER [K-Dur 20] 20 meq PO BID 11/21/18 11/21/18 History predniSONE 20 mg PO DAILY 11/21/18 11/21/18 History Allergies Allergy/AdvReac Type Severity Reaction Status Date / Time montelukast sodium Allergy Itching Verified 11/21/18 09:27 [From [facility]] Physical Exam Vitals: Vital Signs Temp Pulse Resp BP Pulse Ox 11/21/18 11:38 92 11/21/18 11:25 88 11/21/18 08:51 95 11/21/18 08:21 98 28 H 140/87 95 11/21/18 07:44 130 H 32 H 117/78 96 11/21/18 06:38 131 H 29 H 109/83 95 11/21/18 06:23 98.7 F 131 H 27 H 127/84 95 11/21/18 06:10 124 H 40 H 144/90 91 L Intake and Output 11/20/18 11/21/18 11/21/18 22:59 06:59 14:59 Intake Total 100 Balance 100 Intake: Intake, IV Titration 100 Amount Piperacillin-Tazobactam 3 100 .375 gm In Sodium Chloride 0.9% 100 ml @ 25 mls/hr IVPB ONCE STA Rx# :[id number] Other: Weight 102.965 kg General: [non toxic], [acute distress on nonrebreather], [appears at stated age] Derm: [warm], [dry] Head: [atraumatic], [normocephalic], [symmetric] Eyes: [EOMI], [no lid lag], [anicteric sclera] Mouth: [no lip lesion], [mucus membranes moist] Cardiovascular: [S1S2 reg], [no murmur], [positive DP pulse bilateral] Lungs: [And expiratory wheezing bilaterally], [no rhonchi, no rales] , [no accessory muscle use] Abdominal: [soft], [ nontender to palpation], [no guarding], [no appreciable organomegaly] Ext: [no gross muscle atrophy], [no edema], [no contractures] Neuro: [no focal neuro deficits] Psych: [Unable to determine due to acute distress] Results CBC & Chem 7: 11/21/18 06:15 11/21/18 06:15 Labs: Abnormal Lab Results - Last 24 Hours (Table) 11/21/18 11/21/18 11/21/18 Range/Units 06:14 06:15 06:15 WBC 20.0 H (3.8-10.6) k/uL Neutrophils # 17.6 H (1.3-7.7) k/uL APTT (22.0-30.0) sec BUN 29 H (9-20) mg/dL Glucose 112 H (74-99) mg/dL POC Glucose (mg/dL) 113 H (75-99) mg/dL Plasma Lactic Acid Isaac (0.7-2.0) mmol/L Calcium 10.7 H (8.4-10.2) mg/dL Troponin I (0.000-0.034) ng/mL 11/21/18 11/21/18 11/21/18 Range/Units 06:15 06:15 10:56 WBC (3.8-10.6) k/uL Neutrophils # (1.3-7.7) k/uL APTT 21.9 L (22.0-30.0) sec BUN (9-20) mg/dL Glucose (74-99) mg/dL POC Glucose (mg/dL) (75-99) mg/dL Plasma Lactic Acid Isaac 2.7 H* (0.7-2.0) mmol/L Calcium (8.4-10.2) mg/dL Troponin I 0.051 H* (0.000-0.034) ng/mL 11/21/18 Range/Units 10:56 WBC (3.8-10.6) k/uL Neutrophils # (1.3-7.7) k/uL APTT (22.0-30.0) sec BUN (9-20) mg/dL Glucose (74-99) mg/dL POC Glucose (mg/dL) (75-99) mg/dL Plasma Lactic Acid Isaac (0.7-2.0) mmol/L Calcium (8.4-10.2) mg/dL Troponin I 0.075 H* (0.000-0.034) ng/mL Thrombosis Risk Factor Assmnt - Choose All That Apply Any of the Below Risk Factors Present?: Yes Each Factor Represents 1 point: Obesity (BMI >25), Swollen legs (current) Other Risk Factors: Yes Each Risk Factor Represents 2 Points: Age 61-74 years Other congenital or acquired thrombophilia - If yes, enter type in comment: No Thrombosis Risk Factor Assessment Total Risk Factor Score: 4 Thrombosis Risk Factor Assessment Level: Moderate Risk Assessment and Plan Assessment: Assessment and Plan Acute hypoxic respiratory failure Sepsis Hospital-acquired pneumonia COPD exacerbation Atrial fibrillation with rapid ventricular rate Troponin elevation Diastolic heart failure History of CVA and CAD Hypertension DVT and GI prophylaxis Multifactorial. Combination of HCAP, COPD, diastolic CHF, A. fib with RVR. Continue IV antibiotics. Optimize COPD medications. Patient appears euvolemic, will avoid diuresing at this time. Optimize cardiac medications to rate control A. fib. Continue BiPAP with FiO2 of 50%. Follow pulmonology and cardiology consult. Meets criteria. Tachycardic, elevated respiratory rate, leukocytosis with source of infection. Chest x-ray showing left lower lobe consolidation. Started on vancomycin and Zosyn IV for treatment of HCAP. Tylenol as needed for fever. Follow lactic acid. Follow blood cultures. Treatment as above. Repeat chest x-ray in the morning. DuoNeb every 4 hours scheduled and as needed for shortness of breath and wheezing. Supplemental O2 via nasal cannula or BiPAP. Prednisone by mouth for a total of 5 days. Follow pulmonology consult. Restart home medication of diltiazem 90 mg by mouth every 6 hours and metoprolol 100 mg by mouth every 6 hours. Rhythm control with digoxin 250 g by mouth daily. Anticoagulation with Apixaban 5 mg by mouth twice a day. Telemetry monitoring. Keep magnesium greater than 2 and potassium greater than 4. Follow cardiology consultation. Troponin 0.051, EKG showing atrial fibrillation with RVR and ST wave changes. Likely due to demand. Trend 2 troponin/EKG to rule out ACS. Recent echo in October with no regional wall motion abnormalities. Continue aspirin and Lipitor. Follow cardiology consult. Recent echo from October showing EF 55-60% with mild concentric LVH. Patient euv olemic at this time. Continue beta noam. Follow cardiology consult. Continue aspirin and Lipitor. BP 140/87. Continue diltiazem and metoprolol. Monitor vitals, adjust medications as necessary. Apixaban. Protonix by mouth.
[2018-11-21] MEDS: METOPROLOL TARTRATE 50 MG TAB PO SCH ×3 (13:54→23:27)
[2018-11-21] MEDS: DILTIAZEM ORAL 30 MG TAB PO SCH ×3 (13:54→23:27)
[2018-11-21] MEDS: DIGOXIN 250 MCG TAB PO SCH (13:54)
[2018-11-21 14:26] LABS: ABG Base Excess 1.8 mmol/L; ABG HCO3 26 mmol/L (21-25); ABG Oxygen Saturation 95.1 % (94-97); ABG PCO2 36 mmHg (35-45); ABG PH 7.46 (7.35-7.45); ABG PO2 75 mmHg (83-108); ABG TCO2 27 mmol/L (19-24)
[2018-11-21] MEDS: ATORVASTATIN 80 MG TAB PO SCH (21:14)
[2018-11-21] MEDS: VANCOMYCIN 1,750 MG in SODIUM CHLORIDE 0.9% 500 ML 500 ML IVPB SCH (22:33)
[2018-11-21] MEDS: HYDROcodone/APAP 10-325MG 1 EACH TAB PO PRN (22:33)
[2018-11-22] MEDS ORDERED: PANTOPRAZOLE 40 MG TABLET PO STA (03:42)
[2018-11-22] MEDS ORDERED: BISMUTH SUBSALICYLATE 4,192 MG/240 ML BOTTLE PO PRN (03:57)
[2018-11-22] MEDS: IPRATROPIUM-ALBUTEROL 3 ML NEB INHALATION SCH ×6 (04:03→23:37)
[2018-11-22] MEDS: DILTIAZEM ORAL 30 MG TAB PO SCH ×2 (05:10→09:05)
[2018-11-22] MEDS: METOPROLOL TARTRATE 50 MG TAB PO SCH ×4 (05:11→17:55)
[2018-11-22 05:52] LABS: Basophils % (A) 0 %; Eosinophils # (A) 0.1 k/uL (0-0.7); Eosinophils % (A) 1 %; HGB 12.4 gm/dL (13.0-17.5); Hypochromasia Slight; Lymphocytes % (A) 8 %; MCH 30.3 pg (25.0-35.0); MCV 97.8 fL (80.0-100.0); Mean Platelet Volume 7.1; Monocytes # (A) 0.4 k/uL (0-1.0); Monocytes % (A) 3 %; Neutrophils % (A) 86 %; Platelet Count 271 k/uL (150-450); RBC 4.09 m/uL (4.30-5.90); WBC 11.7 k/uL (3.8-10.6)
[2018-11-22 06:01] LABS: Anion Gap 4 mmol/L; Blood Urea Nitrogen 21 mg/dL (9-20); Calcium 9.6 mg/dL (8.4-10.2); Carbon Dioxide 26 mmol/L (22-30); Chloride 109 mmol/L (98-107); Glucose 92 mg/dL (74-99); Magnesium 1.9 mg/dL (1.6-2.3); Potassium 3.9 mmol/L (3.5-5.1); Sodium 139 mmol/L (137-145)
[2018-11-22] MEDS ORDERED: Potassium Replacement Protocol 1 EACH MISC MISCELLANE PRN (06:49)
[2018-11-22] MEDS ORDERED: Magnesium Replacement Protocol 1 EACH MISC MISCELLANE PRN (06:49)
[2018-11-22] MEDS: MAGNESIUM SULFATE-D5W PMX 1 GM in DEXTROSE/WATER 1 100ML.BAG IVPB SCH ×2 (06:54→09:07)
--- NOTE | 2018-11-22 07:22 | XR ---
EXAMINATION TYPE: XR chest 1V DATE OF EXAM: 11/22/2018 HISTORY: Shortness of breath. COMPARISON: 11/21/2018 TECHNIQUE: Single view of the chest is submitted. FINDINGS: Demonstrated are scattered senescent parenchymal change. Stable left perihilar left lower lobe infiltrate. The heart is stable. Hilar and mediastinal structures are within normal limits. Degenerative changes are seen of the dorsal spine. IMPRESSION: 1. Stable left perihilar left lower lobe infiltrate.
[2018-11-22] MEDS: VANCOMYCIN 1,750 MG in SODIUM CHLORIDE 0.9% 500 ML 500 ML IVPB SCH (08:00)
[2018-11-22] MEDS ORDERED: POTASSIUM CHLORIDE ER 20 MEQ TAB.ER PO SCH (08:00)
[2018-11-22] MEDS: PANTOPRAZOLE 40 MG TABLET PO SCH (08:30)
[2018-11-22] MEDS ORDERED: predniSONE 50 MG TAB PO SCH (09:00)
[2018-11-22] MEDS ORDERED: RX INFO: IV CONTRAST WAS GIVEN 1 EACH MISC MISCELLANE PRN (09:04)
[2018-11-22] MEDS: DIGOXIN 250 MCG TAB PO SCH (09:06)
[2018-11-22] MEDS: ASPIRIN 81 MG PO SCH (09:06)
[2018-11-22] MEDS: APIXABAN 5 MG TAB PO SCH ×2 (09:06→21:11)
--- NOTE | 2018-11-22 12:27 | P.PN ---
Subjective Progress Note Date: 11/22/18 Principal diagnosis: acute on chronic hypoxic respiratory failure, left lower lobe pneumonia, suspect healthcare acquired. This is a very pleasant 68-year-old gentleman follows Dr. Suazo as his primary care physician. He has a history of coronary artery disease, CVA/TIA, GERD, hypertension, hyperlipidemia, Ana Laura arthritis, benign prostatic hypertrophy, irritable bowel syndrome. Has has a history of Gold stage III chronic obstructive pulmonary disease and follows with Dr. Bravo in our office for the same. He is a 56 year history of smoking 2-3 packs per day however quit in May 2018. He's been maintained on DuoNeb inhalations and Symbicort in the outpatient setting. He also is known to have a left upper lobe lung nodule measuring 1 cm. PET scan revealed no suspicious hypermetabolic uptake. This is being followed in the outpatient setting. He presented here to the emergency room yesterday with complaints of difficulty breathing from the extended care fa cility he was discharged to from here on 10/05/2018. He was found to have oxygen saturations in the 70s using a nasal cannula. Chest x-ray revealed a new left lower lobe consolidation compared to previous on 11/08/2018. White count 20, hemoglobin 14.5. Creatinine 0.84. Troponin 0.051. ProBNP 1760. He is seen today in consultation on the selective care unit. He is currently awake and alert In a chair at the bedside. Currently on 50% nonrebreather mask he's been afebrile. He did wear her BiPAP throughout the night. He is having issues with atrial fibrillation with a rapid ventricular response. He is anticoagulated with Eliquis. He has been initiated on DuoNeb inhalations, prednisone, vancomycin. Patient was reevaluated today on 11/22/2018, he was transferred to the ICU yesterday mostly because his O2 saturation was marginal in spite of being on BiPAP on 100%.on the 100% nonrebreather, his pO2 was 75 pCO2 was 36 and pH was 7.46. However that chest x-ray and the limited infiltrate noted in the left lower lobe does not clearly correlate with the findings noted on the chest x- ray. Hence I have recommended a CT angiogram of the chest to be done today, and it is pending. Patient is on high flow nasal cannula at present, O2 saturation is in the low 90s, feeling a bit better compared to yesterday. Remains on antibiotics bronchodilators and steroids.WBC count is 11.7 hemoglobin is 12.4 lites are normal renal profile is normal.sputum cultures are pending, however in the past the patient, patient had Klebsiella and Serratia marcescens pneumonia.today I discontinued vancomycin, and The patient on Zosyn.ordered CT of the chest to rule out pulmonary embolism, and that is pending. Patient is already on anticoagulation therapy. Objective - Vital Signs Vital signs: Vital Signs Temp 99.0 F 11/22/18 04:00 Pulse 76 11/22/18 12:00 Resp 25 H 11/22/18 07:00 BP 148/86 11/22/18 07:00 Pulse Ox 96 11/22/18 07:00 Intake & Output 11/21/18 11/22/18 11/22/18 18:59 06:59 18:59 Intake Total 540 1950 100 Output Total 550 Balance 540 1400 100 Weight 98.6 kg Intake: IV 200 1600 100 Sodium Chloride 0.9% 1, 200 1100 100 000 ml @ 100 mls/hr IV . Q10H [facility] Rx#:[id number] Vancomycin 1,750 mg In 500 Sodium Chloride 0.9% 500 ml 500 ml @ 167 mls/hr IVPB Q12H [facility] Rx#: [id number] Intake, IV Titration 100 Amount Piperacillin-Tazobactam 3 100 .375 gm In Sodium Chloride 0.9% 100 ml @ 25 mls/hr IVPB ONCE [facility] Rx# :[id number] Oral 240 350 Output: Urine 550 Other: Voiding Method Incontinent Incontinent # Voids 1 1 - Exam GENERAL EXAM: Alert, pleasant, 68-year-old white male patient, on 6 L high flow nasal cannula.not in any distress HEAD: Normocephalic/atraumatic. EYES: Normal reaction of pupils, equal size. Conjunctiva pink, sclera white. NOSE: Clear with pink turbinates. THROAT: No erythema or exudates. NECK: No masses, no JVD, no thyroid enlargement, no adenopathy. CHEST: No chest wall deformity. Symmetrical expansion. LUNGS:fine crackles at the bases, no rhonchi and no wheezes. Symmetrical expansion noted no chest wall tenderness. CVS: Regular rate and rhythm, normal S1 and S2, no gallops, no murmurs, no rubs ABDOMEN: Soft, nontender. No hepatosplenomegaly, normal bowel sounds, no guarding or rigidity. EXTREMITIES: No clubbing, no edema, no cyanosis, 2+ pulses and upper and lower extremities. MUSCULOSKELETAL: Muscle strength and tone normal. SPINE: No scoliosis or deformity SKIN: No rashes CENTRAL NERVOUS SYSTEM: No focal deficits, tone is normal in all 4 extremities. PSYCHIATRIC: Alert and oriented -3. Appropriate affect. Intact judgment and insight. - Labs CBC & Chem 7: 11/22/18 05:30 11/22/18 05:30 Labs: Abnormal Lab Results - Last 24 Hours (Table) 11/21/18 11/21/18 11/22/18 Range/Units 14:20 17:04 05:30 WBC 11.7 H (3.8-10.6) k/uL RBC 4.09 L (4.30-5.90) m/uL Hgb 12.4 L (13.0-17.5) gm/dL Neutrophils # 10.0 H (1.3-7.7) k/uL ABG pH 7.46 H (7.35-7.45) ABG pO2 75 L (83-108) mmHg ABG HCO3 26 H (21-25) mmol/L ABG Total CO2 27 H (19-24) mmol/L Chloride (98-107) mmol/L BUN (9-20) mg/dL Troponin I 0.064 H* (0.000-0.034) ng/mL 11/22/18 Range/Units 05:30 WBC (3.8-10.6) k/uL RBC (4.30-5.90) m/uL Hgb (13.0-17.5) gm/dL Neutrophils # (1.3-7.7) k/uL ABG pH (7.35-7.45) ABG pO2 (83-108) mmHg ABG HCO3 (21-25) mmol/L ABG Total CO2 (19-24) mmol/L Chloride 109 H (98-107) mmol/L BUN 21 H (9-20) mg/dL Troponin I (0.000-0.034) ng/mL Microbiology - Last 24 Hours (Table) 11/21/18 14:10 Gram Stain - Preliminary Sputum Assessment and Plan Assessment: impression: 1 acute on chronic hypoxic respiratory failure, most likely secondary to healthcare acquired pneumonia, previously was secondary to Serratia marcescens and Klebsiella pneumonia. However the extensiveness of the pneumonia the chest x-ray does not correlate with the profound hypoxemia that the patient has based on the ABG, hence I recommended CT angiogram of the chest. 2 atrial fibrillation with poorly controlled rapid ventricular rate, patient is maximized on digoxin and Lopressor and Cardizem. Being followed by cardiology. Suspect that his atrial fibrillation is another contributing factor to his hypoxemia. 3 coronary artery disease 4 solitary lung nodule, being followed on every six-month basis 5 hypertension 6 irritable bowel syndrome 7 [id number] smoking history quit in May of 2018 8 GERD with esophagitis 9 degenerative joint disease Recommendation: Continue present treatment plan, titrate O2 accordingly, keep O2 saturation above 92%, continue antibiotics presently on Zosyn for presumptive healthcare acquired pneumonia/either Klebsiella or Serratia marcescens based on previous cultures. Discontinued vancomycin today, based on the CT angiogram of the chest, further recommendations will follow. Could consider transferring the patient out of the ICU today to a monitor bed on selective, cardiology is addressing his atrial fibrillation/RVR. Long-term prognosis remains poor and guarded. Time with Patient: Less than 30
[2018-11-22] MEDS: PIPERACILLIN-TAZOBACTAM 3.375 GM in SODIUM CHLORIDE 0.9% 100 ML IVPB SCH ×2 (12:58→17:52)
[2018-11-22] MEDS: FLUTICASONE 50MCG/SPRAY NASAL 16GM EA NOSTRIL SCH (12:58)
--- NOTE | 2018-11-22 12:59 | CT ---
EXAMINATION TYPE: CT chest angio for PE DATE OF EXAM: 11/22/2018 COMPARISON: Radiograph same day HISTORY: 68-year-old male Respiratory distress, hypoxemia TECHNIQUE: Contiguous axial scanning of the chest performed with IV Contrast, patient injected with 1 00 mL of Isovue 370. Coronal/sagittal MIP reconstructions performed. CT DLP: 500.5 mGycm Automated exposure control for dose reduction was used. FINDINGS: The heart is upper limits of normal in size without pericardial effusion. No flattening of the interv entricular septum or reflux of contrast into the hepatic veins. Coronary vessel calcifications are pr esent. Ectatic ascending aorta 3.7 cm with mild atelectatic arch calcifications and conventional arch vessel branching anatomy. Large caliber to the main right and left pulmonary arteries to 0.8 and 3.0 cm, respectively. There is excessive respiratory motion artifact limiting assessment for pulmonary emboli. No large nikki tral lobar pulmonary embolus. Many of the segmental and more distal arterial branches of the lower lo bes are nondiagnostic due to motion artifact. 2.2 cm enlarged AP window lymph node. Prominent but nonenlarged 9 mm left tracheobronchial angle lymp h node. Enlarged 1.4 and 1.2 cm left hilar lymph node. Prominent right hilar lymph nodes measuring up to 1.1 cm. Prominent dependent atelectasis bilaterally. Bands of atelectasis at the right base. Scattered subtle tree-in-bud opacities mid and lower lungs. Focal cyst, possible emphysematous cyst posterior left upper lobe with an adjacent 1.3 cm pulmonary n odule. Additional 1 cm subpleural pulmonary nodule superior segment left lower lobe. Visualized upper abdomen shows moderate atherosclerotic changes within the aorta. Bones: Endplate spondylosis mid to lower thoracic spine. IMPRESSION: 1. BREATHING MOTION LIMITING ASSESSMENT FOR PULMONARY EMBOLUS. NO LARGE CENTRAL OR LOBAR PULMONARY EM BOLUS. NO PULMONARY EMBOLUS IN THE UPPER OR MID LUNGS. MANY OF THE SEGMENTAL AND MORE DISTAL ARTERIAL BRANCHES OF THE LOWER LOBES ARE NONDIAGNOSTIC DUE TO MOTION. EMBOLI HERE CANNOT BE EXCLUDED ON THE B ASIS OF THIS EXAM. 2. MILD EMPHYSEMA. CAD. PULMONARY ARTERIAL HYPERTENSION. 3. SUBTLE TREE-IN-BUD OPACITIES MID AND LOWER LUNGS. CORRELATE FOR ATYPICAL INFECTIONS, BRONCHIOLITIS , OR MILD ASPIRATION. 4. AP WINDOW AND BILATERAL HILAR LYMPH NODES MEASURING UP TO 2.2 CM. FINDINGS MAY BE REACTIVE. UNDERL DOMO INFECTION. NEOPLASTIC ETIOLOGY NOT EXCLUDED AT THIS TIME AND FOLLOW-UP IS RECOMMENDED. 5. EMPHYSEMATOUS CYST IN THE POSTERIOR LEFT UPPER LOBE WITH ADJACENT 1.3 CM NODULE. EARLY LUNG CANCER NOT EXCLUDED. ADDITIONAL 1 CM SUPERIOR SEGMENT LEFT LOWER LOBE PULMONARY NODULE. IN 3 MONTHS, RECOMM END EITHER FOLLOW-UP CT CHEST VERSUS FOLLOW-UP PET/CT.
[2018-11-22] MEDS: HYDROcodone/APAP 10-325MG 1 EACH TAB PO PRN (13:08)
--- NOTE | 2018-11-22 13:11 | P.PN ---
Subjective Progress Note Date: 11/22/18 Principal diagnosis: Pneumonia, COPD exacerbation Patient was seen and examined. No acute events overnight. Per reports, patient's breathing status deteriorated yesterday sending him to the ICU. This morning he is on 6 L nasal cannula saturating 90s. Patient reports slight i mprovement in his breathing since admission. He does complain of a sensation in his right nostril about food and water coming out of his nostril when he eats. He denies any chest pain or palpitations. Objective - Vital Signs Vital signs: Vital Signs Temp 98.6 F 11/22/18 12:00 Pulse 67 11/22/18 12:00 Resp 26 H 11/22/18 12:00 BP 124/72 11/22/18 12:00 Pulse Ox 93 L 11/22/18 12:00 Intake & Output 11/21/18 11/22/18 11/22/18 18:59 06:59 18:59 Intake Total 540 1950 100 Output Total 550 300 Balance 540 1400 -200 Weight 98.6 kg Intake: IV 200 1600 100 Sodium Chloride 0.9% 1, 200 1100 100 000 ml @ 100 mls/hr IV . Q10H [facility] Rx#:[id number] Vancomycin 1,750 mg In 500 Sodium Chloride 0.9% 500 ml 500 ml @ 167 mls/hr IVPB Q12H [facility] Rx#: [id number] Intake, IV Titration 100 Amount Piperacillin-Tazobactam 3 100 .375 gm In Sodium Chloride 0.9% 100 ml @ 25 mls/hr IVPB ONCE [facility] Rx# :[id number] Oral 240 350 Output: Urine 550 300 Other: Voiding Method Incontinent Incontinent # Voids 1 1 1 - Exam General: [non toxic], [on 6 L nasal cannula], [appears at stated age] Derm: [warm], [dry] Head: [atraumatic], [normocephalic], [symmetric] Eyes: [EOMI], [no lid lag], [anicteric sclera] Mouth: [no lip lesion], [mucus membranes moist] Cardiovascular: [S1S2 reg], [no murmur], [positive DP pulse bilateral] Lungs: [End expiratory wheezing bilaterally], [coarse breath sounds bilaterally] , [no accessory muscle use] Abdominal: [soft], [ nontender to palpation], [no guarding], [no appreciable organomegaly] Ext: [no gross muscle atrophy], [no edema], [no contractures] Neuro: [no focal neuro deficits] - Labs CBC & Chem 7: 11/22/18 05:30 11/22/18 05:30 Labs: Abnormal Lab Results - Last 24 Hours (Table) 11/21/18 11/21/18 11/22/18 Range/Units 14:20 17:04 05:30 WBC 11.7 H (3.8-10.6) k/uL RBC 4.09 L (4.30-5.90) m/uL Hgb 12.4 L (13.0-17.5) gm/dL Neutrophils # 10.0 H (1.3-7.7) k/uL ABG pH 7.46 H (7.35-7.45) ABG pO2 75 L (83-108) mmHg ABG HCO3 26 H (21-25) mmol/L ABG Total CO2 27 H (19-24) mmol/L Chloride (98-107) mmol/L BUN (9-20) mg/dL Troponin I 0.064 H* (0.000-0.034) ng/mL 11/22/18 Range/Units 05:30 WBC (3.8-10.6) k/uL RBC (4.30-5.90) m/uL Hgb (13.0-17.5) gm/dL Neutrophils # (1.3-7.7) k/uL ABG pH (7.35-7.45) ABG pO2 (83-108) mmHg ABG HCO3 (21-25) mmol/L ABG Total CO2 (19-24) mmol/L Chloride 109 H (98-107) mmol/L BUN 21 H (9-20) mg/dL Troponin I (0.000-0.034) ng/mL Microbiology - Last 24 Hours (Table) 11/21/18 14:10 Gram Stain - Preliminary Sputum Assessment and Plan Assessment: Assessment and Plan Acute hypoxic respiratory failure Sepsis Hospital-acquired pneumonia COPD exacerbation Atrial fibrillation with rapid ventricular rate Troponin elevation Diastolic heart failure History of CVA and CAD Hypertension DVT and GI prophylaxis Multifactorial. Combination of HCAP, COPD, diastolic CHF, A. fib with RVR. Continue IV antibiotics. Optimize COPD medications. Patient appears euvolemic, will avoid diuresing at this time. Optimize cardiac medications to rate control A. fib. Continue nasal cannula, BiPAP as necessary. Follow CTA of the chest to rule out PE. Follow pulmonology and cardiology consult. Meets criteria. Tachycardic, elevated respiratory rate, leukocytosis with source of infection. Lactic acid 2.7-1.5. Chest x-ray showing left lower lobe consolidation. Started on Zosyn IV for treatment of HCAP. Vancomycin discontinued due to previous sputum culture. Add Mucinex. Tylenol as needed for fever. Follow blood cultures, sputum cultures. Treatment as above. Repeat chest x-ray in the morning. DuoNeb every 4 hours scheduled and as needed for shortness of breath and wheezing. Supplemental O2 via nasal cannula or BiPAP. Prednisone by mouth for a total of 5 days. Follow pulmonology consult. Restart home medication of diltiazem 90 mg by mouth every 6 hours and metoprolol 100 mg by mouth every 6 hours. Rhythm control with digoxin 250 g by mouth daily. Anticoagulation with Apixaban 5 mg by mouth twice a day. Telemetry monitoring. Keep magnesium greater than 2 and potassium greater than 4. Follow cardiology consultation. Troponin 0.051, 0.075, 0.064, EKG showing atrial fibrillation with RVR and ST wave changes. Likely due to demand. ACS ruled out. Recent echo in October with no regional wall motion abnormalities. Continue aspirin and Lipitor. Follow cardiology consult. Recent echo from October showing EF 55-60% with mild concentric LVH. Patient euvolemic at this time. Continue beta noam. Follow cardiology consult. Continue aspirin and Lipitor. BP 124/72. Continue diltiazem and metoprolol. Monitor vitals, adjust medications as necessary. Apixaban. Protonix by mouth. Patient's respiratory status slowly improving. Currently on IV antibiotics for treatment of pneumonia. CTA chest pending to rule out PE. Optimizing COPD medications. Pulmonology on board. Patient is pending clinical improvement.
--- NOTE | 2018-11-22 13:23 | PN ---
PROGRESS NOTE Celso is a 68-year-old gentleman who is admitted to hospital with shortness of breath, has chronic atrial fibrillation with poorly controlled ventricular rate. At the moment, his heart rate is slow. There were times when his heart rate really dropped into the 40s. The patient is on digoxin, Cardizem 90 q.6, metoprolol 100 q.6 and Eliquis. I am going to stop the Cardizem at this time and hold the metoprolol for slower heart rate. On exam, heart rate is 74 beats per minute. Blood pressure is normal. Chest exam reveals diminished air entry bilaterally. Heart exam reveals first and second heart sounds, irregular rhythm. Exam of extremities reveals 1+ edema. Peripheral pulses are felt. Labs show a hemoglobin of 12.4, platelet count is 270. Potassium is 3.9, creatinine is 0.6. ASSESSMENT: 1. Chronic atrial fibrillation with controlled ventricular rate. 2. Shortness of breath. The exact etiology is unclear. The patient had a CT scan of the chest to rule out pulmonary embolism as per Pulmonary. The patient is already adequately anticoagulated. It is unlikely that his shortness of breath is related to pulmonary embolism. MMODL / IJN: [id number] /
[2018-11-22] MEDS: guaiFENesin 600 MG TABLET.ER PO SCH (21:11)
[2018-11-22] MEDS: ATORVASTATIN 80 MG TAB PO SCH (21:11)
[2018-11-23] MEDS: PIPERACILLIN-TAZOBACTAM 3.375 GM in SODIUM CHLORIDE 0.9% 100 ML IVPB SCH ×4 (00:02→23:46)
[2018-11-23] MEDS: METOPROLOL TARTRATE 50 MG TAB PO SCH ×5 (00:02→23:46)
[2018-11-23] MEDS: IPRATROPIUM-ALBUTEROL 3 ML NEB INHALATION SCH ×5 (03:14→20:26)
[2018-11-23 05:39] LABS: Basophils % (A) 0 %; Eosinophils # (A) 0.1 k/uL (0-0.7); Eosinophils % (A) 1 %; HCT 38.7 % (39.0-53.0); HGB 12.3 gm/dL (13.0-17.5); Lymphocytes # (A) 1.1 k/uL (1.0-4.8); Lymphocytes % (A) 11 %; MCH 30.6 pg (25.0-35.0); MCHC 31.8 g/dL (31.0-37.0); MCV 96.2 fL (80.0-100.0); Mean Platelet Volume 7.4; Monocytes # (A) 0.4 k/uL (0-1.0); Monocytes % (A) 4 %; Neutrophils # (A) 9.1 k/uL (1.3-7.7); Neutrophils % (A) 84 %; Platelet Count 276 k/uL (150-450); RBC 4.02 m/uL (4.30-5.90); RDW 13.9 % (11.5-15.5); WBC 10.9 k/uL (3.8-10.6)
[2018-11-23 06:02] LABS: Anion Gap 4 mmol/L; Blood Urea Nitrogen 17 mg/dL (9-20); Calcium 9.2 mg/dL (8.4-10.2); Carbon Dioxide 27 mmol/L (22-30); Chloride 109 mmol/L (98-107); Glucose 82 mg/dL (74-99); Magnesium 2.1 mg/dL (1.6-2.3); Potassium 3.7 mmol/L (3.5-5.1); Sodium 140 mmol/L (137-145)
[2018-11-23] MEDS ORDERED: Potassium Replacement Protocol 1 EACH MISC MISCELLANE PRN (06:47)
[2018-11-23] MEDS: PANTOPRAZOLE 40 MG TABLET PO SCH (07:47)
[2018-11-23] MEDS: DIGOXIN 250 MCG TAB PO SCH (08:27)
[2018-11-23] MEDS: ASPIRIN 81 MG PO SCH (08:27)
[2018-11-23] MEDS: APIXABAN 5 MG TAB PO SCH ×2 (08:27→19:49)
[2018-11-23] MEDS: guaiFENesin 600 MG TABLET.ER PO SCH ×2 (08:28→19:49)
[2018-11-23] MEDS: FLUTICASONE 50MCG/SPRAY NASAL 16GM EA NOSTRIL SCH (08:28)
[2018-11-23] MEDS: HYDROcodone/APAP 10-325MG 1 EACH TAB PO PRN ×2 (08:28→21:06)
[2018-11-23] MEDS: predniSONE 20 MG TAB PO SCH (08:30)
[2018-11-23] MEDS ORDERED: POTASSIUM CHLORIDE ER 20 MEQ TAB.ER PO ONE (09:00)
--- NOTE | 2018-11-23 10:06 | XR ---
EXAMINATION TYPE: XR chest 1V DATE OF EXAM: 11/23/2018 COMPARISON: 11/22/2018 INDICATION: Pneumonia TECHNIQUE: Single frontal view of the chest is obtained in a semiupright position. FINDINGS: The heart size is normal. The pulmonary vasculature is normal. Minimal residual infiltrate is at the left base. This has improved from comparison. IMPRESSION: 1. Improving left lower lung field infiltrate.
--- NOTE | 2018-11-23 10:43 | PN ---
PROGRESS NOTE DATE OF SERVICE: November 23, 2018 This is a patient who is well known to me. He sees Dr. Suazo as a primary and I see him for his underlying COPD. He has got gold stage III disease. The patient was admitted on the . He apparently came into the emergency with atrial fibrillation and RVR. He was also very short of breath with low saturations. His admission diagnosis was that of atrial fibrillation with rapid ventricular response and possible healthcare acquired pneumonia. The patient's chest x-ray is not real impressive, but there may be a minimal infiltrate in the left lung. [facility] and then sent here recently. Currently, the patient is on O2 at 6 L by nasal cannula. At nighttime, he is requiring BiPAP 12/6 and 60%. His IV is 0.9 at 20 mL an hour. Microbiologic studies thus far are negative. The patient has a very extensive tobacco history, smoking for about 53 years at 1 to 2 packs a day. He quit in May of 2018. The patient does have a previous history of pneumonia secondary to Serratia marcescens and Klebsiella pneumoniae. Currently, he is feeling pretty good. He feels a lot better. Much less short of breath than he was when he first came in. He is somewhat of a poor historian. Does not really actually remember why he came into the hospital. Current vital signs are reviewed. Temperature 99.4, heart rate 84, respiratory rate 23, blood pressure 100/77, mean 84, on a 6 L saturation of 92% to 93%. Appears in no acute distress. No respiratory distress. No audible wheezing. Mild conversational dyspnea. HEENT examination is grossly unremarkable. Mucous membranes are moist. Nasal O2 noted. NECK: Supple. Full range of motion. No adenopathy. Neck veins are flat. Cardiovascular examination reveals regular rhythm and rate. S1, S2 normal. No S3, S4, or murmur. Heart rate about 75 to 80 beats per minute. Lungs reveal a few scattered rhonchi. No wheezes. There is a few scattered crackles. Breath sounds equal bilaterally. Abdomen is soft. Bowel sounds are heard. Extremities are intact. Mild edema. Skin without rash. Neurologic examination is brief but nonfocal. Chest x-ray shows relatively stable chest x-ray. I do not see anything real obvious on the x-ray. I am not really convinced that he has a left lower lobe pneumonia. That could represent atelectasis or an early infiltrate. Again, the patient's history is not particularly useful in this situation. Chest x-ray on the , chest x-ray on the and CT scan on the are all reviewed. Lab data is reviewed. White count 10.9, hemoglobin 12.2, hematocrit 38.7, platelet count 276,000. Sodium and potassium normal. Chloride 109, CO2 is 27. Anion gap is 4. BUN and creatinine were 17 and 0.76. N terminal proBNP 1760. Troponin 0.064. Microbiologic studies are essentially all negative. There is some Linda in the sputum. Medications are reviewed. The patient is on Zosyn, updrafts and other appropriate medications. ASSESSMENT: 1. Acute on chronic hypoxemic respiratory failure, likely secondary to chronic obstructive pulmonary disease exacerbation and possible pneumonia left lower lobe. 2. No evidence of pulmonary embolism on CT angiogram. 3. Prior history of Serratia marcescens and Klebsiella pneumoniae pneumonia. 4. History of atrial fibrillation with rapid ventricular response. 5. Coronary artery disease. 6. Solitary pulmonary nodule with negative PET scan, being followed chronically. 7. Hypertension. 8. Irritable bowel syndrome. 9. Previous history of 53 years of tobacco use with cessation in May 2018. 10.Gold stage III chronic obstructive pulmonary disease. 11.Gastroesophageal reflux disease with esophagitis. 12.Degenerative joint disease. PLAN: The patient remains on appropriate medications. We will continue to follow. He is being treated for healthcare acquired pneumonia. The chest x-ray in my opinion is improved and I am not sure that he really ever had pneumonia in the left lower lobe. Again, it is difficult to say because the patient is a poor historian. When asked about the symptoms he has only mentioned shortness of breath. Nonetheless, he will stay on antibiotics and breathing treatments. We will continue to follow. Prognosis is guarded. Additional recommendations and suggestions are forthcoming. MMODL / IJN: [id number] /
[2018-11-23] MEDS ORDERED: FUROSEMIDE 10 MG/ML 4 ML VIAL IV STA (13:57)
--- NOTE | 2018-11-23 16:14 | P.PN ---
Subjective Progress Note Date: 11/23/18 Principal diagnosis: Pneumonia Patient was seen and examined. No acute events overnight. Patient reports improvement in his breathing but continues to complain of right-sided facial pain and a weird sensation in his right nostril. He denies any nausea or vomiting. No fever or chills. Saturating low 90s on 6 L nasal cannula. Objective - Vital Signs Vital signs: Vital Signs Temp 98.4 F 11/23/18 12:01 Pulse 79 11/23/18 16:07 Resp 18 11/23/18 16:07 BP 139/81 11/23/18 15:00 Pulse Ox 93 L 11/23/18 15:00 Intake & Output 11/22/18 11/23/18 11/23/18 18:59 06:59 18:59 Intake Total 525 1700 635 Output Total 916 101 1814 Balance 25 724 -889 Weight 98.8 kg Intake: IV 225 1200 360 NS @ 100ml/hr 1200 260 Piperacillin-Tazobactam 3 125 100 .375 gm In Sodium Chloride 0.9% 100 ml @ 25 mls/hr IVPB Q8HR PRIYANKA Rx# :[id number] Sodium Chloride 0.9% 1, 100 000 ml @ 100 mls/hr IV . Q10H PRIYANKA Rx#:[id number] Oral 300 500 275 Output: Urine 376 868 2421 Stool 1 3 Urine/Stool Mix 1 Other: Voiding Method Urinal Urinal # Voids 1 # Bowel Movements 1 1 1 - Exam General: [non toxic], [on 6 L nasal cannula], [appears at stated age] Derm: [warm], [dry] Head: [atraumatic], [normocephalic], [symmetric] Eyes: [EOMI], [no lid lag], [anicteric sclera] Mouth: [no lip lesion], [mucus membranes moist] Cardiovascular: [S1S2 reg], [no murmur], [positive DP pulse bilateral] Lungs: [Coarse breath sounds bilaterally], [no accessory muscle use] Abdominal: [soft], [ nontender to palpation], [no guarding], [no appreciable o rganomegaly] Ext: [no gross muscle atrophy], [no edema], [no contractures] Neuro: [no focal neuro deficits] - Labs CBC & Chem 7: 11/23/18 05:00 11/23/18 13:04 Labs: Abnormal Lab Results - Last 24 Hours (Table) 11/23/18 11/23/18 Range/Units 05:00 05:00 WBC 10.9 H (3.8-10.6) k/uL RBC 4.02 L (4.30-5.90) m/uL Hgb 12.3 L (13.0-17.5) gm/dL Hct 38.7 L (39.0-53.0) % Neutrophils # 9.1 H (1.3-7.7) k/uL Chloride 109 H (98-107) mmol/L Microbiology - Last 24 Hours (Table) 11/21/18 10:56 Blood Culture - Preliminary Blood No Growth after 48 hours 11/21/18 14:10 Gram Stain - Final Sputum Sputum Culture - Final Linda albicans Assessment and Plan Assessment: Assessment and Plan Acute hypoxic respiratory failure Sepsis Hospital-acquired pneumonia COPD exacerbation Atrial fibrillation with rapid ventricular rate Troponin elevation Diastolic heart failure History of CVA and CAD Hypertension DVT and GI prophylaxis Multifactorial. Combination of HCAP, COPD, diastolic CHF, A. fib with RVR. Continue IV antibiotics. Optimize COPD medications. Patient appears euvolemic, will avoid diuresing at this time. Optimize cardiac medications to rate control A. fib. Continue nasal cannula, BiPAP as necessary. CTA chest rules out PE. Follow pulmonology and cardiology consult. Meets criteria. Tachycardic, elevated respiratory rate, leukocytosis with source of infection. Lactic acid 2.7-1.5. Chest x-ray showing left lower lobe consolidation. Started on Zosyn IV for treatment of HCAP. Vancomycin discontinued due to previous sputum culture. Add Mucinex. Tylenol as needed for fever. Sputum culture grows Linda albicans. Blood cultures prelim negative at 48 hours. Treatment as above. Chest x-ray shows improvement in pneumonia. DuoNeb every 4 hours scheduled and as needed for shortness of breath and wheezing. Supplemental O2 via nasal cannula or BiPAP. Prednisone by mouth for a total of 5 days. Follow pulmonology consult. Restart home medication of diltiazem 90 mg by mouth every 6 hours and metoprolol 100 mg by mouth every 6 hours. Rhythm control with digoxin 250 g by mouth daily. Anticoagulation with Apixaban 5 mg by mouth twice a day. Telemetry monitoring. Keep magnesium greater than 2 and potassium greater than 4. Follow cardiology consultation. Troponin 0.051, 0.075, 0.064, EKG showing atrial fibrillation with RVR and ST wave changes. Likely due to demand. ACS ruled out. Recent echo in October with no regional wall motion abnormalities. Continue aspirin and Lipitor. Follow cardiology consult. Recent echo from October showing EF 55-60% with mild concentric LVH. Patient euvolemic at this time. Continue beta noam. Follow cardiology consult. Continue aspirin and Lipitor. BP 139/81. Continue diltiazem and metoprolol. Monitor vitals, adjust medications as necessary. Apixaban. Protonix by mouth. Patient's respiratory status slowly improving. Currently on IV antibiotics for treatment of pneumonia. Optimizing COPD medications. Pulmonology on board. Patient is pending clinical improvement. Likely DC in 1-2 days.
--- NOTE | 2018-11-23 17:31 | PN ---
PROGRESS NOTE 68-year-old gentleman admitted to hospital with shortness of breath, has atrial fibrillation with controlled ventricular rate. This morning, he is feeling better. Heart rate is well controlled. Blood pressure is around 138/80, respiratory rate is 20. Chest exam reveals diminished air entry at the bases. Heart exam reveals first and second heart sounds, irregular rhythm. Exam of extremities reveals 1+ edema. The patient is currently on Lanoxin, Lopressor 100 q.6h, Lipitor and Eliquis. ASSESSMENT: Chronic atrial fibrillation with controlled ventricular rate. I will continue the patient on current medications. I stopped the Cardizem that he was on. MMODL / IJN: [id number] /
[2018-11-23] MEDS: ATORVASTATIN 80 MG TAB PO SCH (19:49)
[2018-11-23] MEDS: SYMBICORT 160-4.5 MCG INHALER INHALATION SCH (20:27)
[2018-11-24] MEDS: IPRATROPIUM-ALBUTEROL 3 ML NEB INHALATION SCH ×7 (00:44→23:46)
[2018-11-24 05:21] LABS: Basophils % (A) 0 %; Eosinophils # (A) 0.1 k/uL (0-0.7); Eosinophils % (A) 1 %; HCT 45.4 % (39.0-53.0); HGB 14.4 gm/dL (13.0-17.5); Hypochromasia Slight; Lymphocytes # (A) 1.3 k/uL (1.0-4.8); Lymphocytes % (A) 9 %; MCH 30.9 pg (25.0-35.0); MCHC 31.8 g/dL (31.0-37.0); MCV 97.2 fL (80.0-100.0); Mean Platelet Volume 7.1; Monocytes # (A) 0.4 k/uL (0-1.0); Monocytes % (A) 2 %; Neutrophils # (A) 13.4 k/uL (1.3-7.7); Neutrophils % (A) 87 %; Platelet Count 298 k/uL (150-450); RBC 4.67 m/uL (4.30-5.90); RDW 13.7 % (11.5-15.5); WBC 15.3 k/uL (3.8-10.6)
[2018-11-24 05:36] LABS: Anion Gap 10 mmol/L; Blood Urea Nitrogen 18 mg/dL (9-20); Carbon Dioxide 24 mmol/L (22-30); Chloride 106 mmol/L (98-107); Glucose 137 mg/dL (74-99); Magnesium 1.8 mg/dL (1.6-2.3); Potassium 3.3 mmol/L (3.5-5.1); Sodium 140 mmol/L (137-145)
[2018-11-24] MEDS: METOPROLOL TARTRATE 50 MG TAB PO SCH ×4 (06:43→23:15)
[2018-11-24] MEDS: PANTOPRAZOLE 40 MG TABLET PO SCH (06:44)
[2018-11-24] MEDS: POTASSIUM CHLORIDE ER 20 MEQ TAB.ER PO SCH ×2 (07:13→08:38)
[2018-11-24] MEDS: MAGNESIUM SULFATE-D5W PMX 1 GM in DEXTROSE/WATER 1 100ML.BAG IVPB SCH ×2 (07:14→08:31)
[2018-11-24] MEDS: HYDROcodone/APAP 10-325MG 1 EACH TAB PO PRN ×2 (07:14→20:54)
[2018-11-24] MEDS: PIPERACILLIN-TAZOBACTAM 3.375 GM in SODIUM CHLORIDE 0.9% 100 ML IVPB SCH ×3 (08:06→23:15)
[2018-11-24] MEDS: SYMBICORT 160-4.5 MCG INHALER INHALATION SCH ×2 (08:08→19:24)
--- NOTE | 2018-11-24 08:17 | XR ---
EXAMINATION TYPE: XR chest 1V DATE OF EXAM: 11/24/2018 HISTORY: Shortness of breath. COMPARISON: 11/23/2018 TECHNIQUE: Single view of the chest is submitted. FINDINGS: Demonstrated are scattered senescent parenchymal change. There is a new left lower lobe infiltrate. Correlate for pneumonia. Follow-up until resolution. The heart is stable. Hilar and mediastinal structures are within normal limits. Degenerative changes are seen of the dorsal spine. IMPRESSION: 1. There is a new left lower lobe infiltrate. Correlate for pneumonia. Follow-up until resolution.
[2018-11-24] MEDS: ASPIRIN 81 MG PO SCH (08:38)
[2018-11-24] MEDS: APIXABAN 5 MG TAB PO SCH ×2 (08:38→19:46)
[2018-11-24] MEDS: FLUTICASONE 50MCG/SPRAY NASAL 16GM EA NOSTRIL SCH (08:38)
[2018-11-24] MEDS: DIGOXIN 250 MCG TAB PO SCH (08:38)
[2018-11-24] MEDS: guaiFENesin 600 MG TABLET.ER PO SCH ×2 (08:39→19:47)
[2018-11-24] MEDS: predniSONE 20 MG TAB PO SCH (08:39)
--- NOTE | 2018-11-24 09:17 | PN ---
PROGRESS NOTE DATE OF SERVICE: 11/24/2018 This is a 68-year-old male, well known to me. He has a history of GOLD stage III chronic lung disease. The patient was admitted on November 21. He came into the emergency room with complaints of tachycardia and was found to have atrial fibrillation with RVR. He was also very short of breath with low saturations and chest x-ray revealed a probable left lower lobe pneumonia. In addition, the patient likely had a COPD exacerbation. The pneumonia may be healthcare acquired. Anyway, the patient is doing relatively well here in the ICU. Currently, he is on 7 L high flow. He also uses IPAP of 12, EPAP of 6, and 50% FiO2. His saline IV is running at 20 mL an hour. His chest x-ray does reveal a left lower lobe infiltrate. The patient was recently at [facility]. He was discharged from [facility]. More recently, he was sent here for the above abnormalities. The patient does have a previous history of pneumonia secondary to both Serratia marcescens and Klebsiella pneumonia. All-in-all, the patient is doing much better. Current vital signs are reviewed. Temperature 37.6, heart rate 79, respiratory rate 22, blood pressure 137/92 mean 107, and saturations on 7 L high flow is 96%. Appears in no acute distress. Mildly tachypneic. Some mild conversational dyspnea. No audible wheezing. HEENT examination is grossly unremarkable. Nasal O2 in place. Neck is supple. Full range of motion. No adenopathy. Cardiovascular examination reveals regular rhythm and rate. Heart rate in mid to high 70s. S1, S2 normal. Heart sounds are distant. Lungs reveal some coarse bilateral rhonchi. Breath sounds are diminished throughout. No expiratory wheezes. There are some crackles at the bases. Abdomen is obese. Bowel sounds are heard. Extremities are intact. No cyanosis, clubbing, or edema. Skin without rash. Neurologic examination is brief but nonfocal. LABS: Reviewed. White count 15.3, hemoglobin 14.4, hematocrit 45.4, platelet count 298,000. Sodium 140, potassium 3.3, chloride is 106, CO2 of 24. BUN and creatinine were 18 and 0.78. Chest x-ray shows a resolving infiltrate in the left lower lobe. Microbiologic studies are all negative. MEDICATIONS: Reviewed. From the pulmonary standpoint, he remains on Symbicort 160/4.5, two puffs twice a day, on Mucinex 600 mg twice a day, DuoNeb q.i.d. and p.r.n. Zosyn and prednisone 40 mg a day. These are all very appropriate. ASSESSMENT: 1. Acute on chronic hypoxemic respiratory failure secondary to chronic obstructive pulmonary disease exacerbation complicated by left lower lobe pneumonia. 2. Atrial fibrillation with rapid ventricular rate. 3. Gold stage III chronic obstructive pulmonary disease. 4. No evidence of pulmonary embolism at this time. 5. Prior history of Serratia marcescens and Klebsiella pneumoniae pneumonia. 6. History of atrial fibrillation with rapid ventricular rate, now controlled. 7. Coronary artery disease. 8. Solitary pulmonary nodule with negative PET scan, being followed serially. 9. Hypertension. 10.Irritable bowel syndrome. 11.Previous history of 53 years of tobacco use, with cessation in May 2018. 12.History of gastroesophageal reflux disease with esophagitis. 13.Degenerative joint disease. PLAN: The patient is doing better. Will continue to manage. The patient will continue on the updrafts q.i.d. and p.r.n. as well as Symbicort 160/4.5, two puffs twice a day. The patient will continue on the antibiotic. Culture data is currently all negative. Chest x-ray was reviewed. Labs and medications are reviewed. His overall prognosis remains guarded. The patient can either stay here in the ICU or go out to the floor. The patient can use the BiPAP from [id number] as well. MMODL / IJN: [id number] /
--- NOTE | 2018-11-24 11:33 | PN ---
PROGRESS NOTE Celso is a 68-year-old gentleman that is admitted to hospital with shortness of breath and atrial fibrillation. His heart rate is well controlled and he is on Eliquis. He continues to have respiratory insufficiency and currently has a BiPAP on. He is also on nebulizers, aspirin, Eliquis, Lipitor, Lanoxin, Lopressor 100 q.6 and Narcan. He was on Cardizem 90 q.6, which I stopped. I am going to cut down the dose of Lopressor to 100 q.8 also. On exam, he is comfortable. Vital signs are stable. Chest exam reveals occasional rhonchi with diminished air entry. Heart exam reveals first and second heart sounds, irregular rhythm. Abdomen is soft. Examination of extremities did not reveal any edema. Labs show a hemoglobin of 14.4, platelet count is 298, creatinine is 0.7. ASSESSMENT: 1. Chronic atrial fibrillation with controlled ventricular rate. 2. Acute on chronic respiratory failure secondary to chronic obstructive pulmonary disease, pneumonia. We will try to cut down the dose of metoprolol as long as heart rates are well controlled. MMODL / IJN: [id number] /
--- NOTE | 2018-11-24 15:08 | P.PN ---
Subjective Progress Note Date: 11/24/18 Principal diagnosis: Pneumonia Patient seen and examined. No acute events overnight. Patient reports improvement in his breathing. He does complain of diarrhea that has been on going for the last 3 or 4 days with mucus. He denies any blood in his stool. He denies nausea or vomiting. No fever or chills. Saturating 90s on 6 L nasal cannula. Objective - Vital Signs Vital signs: Vital Signs Temp 98.3 F 11/24/18 12:00 Pulse 82 11/24/18 15:00 Resp 24 11/24/18 15:00 BP 137/71 11/24/18 15:00 Pulse Ox 91 L 11/24/18 15:00 Intake & Output 11/23/18 11/24/18 11/24/18 18:59 06:59 18:59 Intake Total 945 490 580 Output Total 2146 691 352 Balance -1201 -201 228 Weight 96.6 kg Intake: IV 520 340 180 NS @ 100ml/hr 320 240 180 Piperacillin-Tazobactam 3 200 100 .375 gm In Sodium Chloride 0.9% 100 ml @ 25 mls/hr IVPB Q8HR PRIYANKA Rx# :[id number] Intake, IV Titration 200 Amount Magnesium Sulfate-D5w Pmx 200 1 gm In Dextrose/Water 1 100ml.bag @ 100 mls/hr IVPB Q1H PRIYANKA Rx#: [id number] Oral 425 150 200 Output: Urine 2140 690 350 Condom 200 Stool 5 1 2 Urine/Stool Mix 1 Other: Voiding Method Urinal Urinal Urinal # Bowel Movements 1 1 - Exam General: [non toxic], [on 6 L nasal cannula], [appears at stated age] Derm: [warm], [dry] Head: [atraumatic], [normocephalic], [symmetric] Eyes: [EOMI], [no lid lag], [anicteric sclera] Mouth: [no lip lesion], [mucus membranes moist] Cardiovascular: [S1S2 reg], [no murmur], [positive DP pulse bilateral] Lungs: [Coarse breath sounds bilaterally], [no accessory muscle use] Abdominal: [soft], [ nontender to palpation], [no guarding], [no appreciable organomegaly] Ext: [no gross muscle atrophy], [no edema], [no contractures] Neuro: [no focal neuro deficits] - Labs CBC & Chem 7: 11/24/18 05:08 11/24/18 14:13 Labs: Abnormal Lab Results - Last 24 Hours (Table) 11/24/18 11/24/18 Range/Units 05:08 05:08 WBC 15.3 H (3.8-10.6) k/uL Neutrophils # 13.4 H (1.3-7.7) k/uL Potassium 3.3 L (3.5-5.1) mmol/L Glucose 137 H (74-99) mg/dL Microbiology - Last 24 Hours (Table) 11/21/18 10:56 Blood Culture - Preliminary Blood No Growth after 72 hours Assessment and Plan Assessment: Assessment and Plan Diarrhea Acute hypoxic respiratory failure Sepsis Hospital-acquired pneumonia COPD exacerbation Atrial fibrillation with rapid ventricular rate Troponin elevation Diastolic heart failure History of CVA and CAD Hypertension DVT and GI prophylaxis Likely from given antibiotics. Follow C. diff. Trial of Imodium. Multifactorial. Combination of HCAP, COPD, diastolic CHF, A. fib with RVR. Continue IV antibiotics. Optimize COPD medications. Patient appears euvolemic, will avoid diuresing at this time. Optimize cardiac medications to rate control A. fib. Continue nasal cannula, BiPAP as necessary. CTA chest rules out PE. Follow pulmonology and cardiology consult. Meets criteria. Tachycardic, elevated respiratory rate, leukocytosis with source of infection. Lactic acid 2.7-1.5. Chest x-ray showing left lower lobe consolidation. Started on Zosyn IV for treatment of HCAP. Vancomycin discontinued due to previous sputum culture. Add Mucinex. Tylenol as needed for fever. Sputum culture grows Linda albicans. Blood cultures prelim negative at 72 hours. Treatment as above. Chest x-ray shows improvement in pneumonia. DuoNeb every 4 hours scheduled and as needed for shortness of breath and wheezing. Supplemental O2 via nasal cannula or BiPAP. Prednisone by mouth for a total of 5 days. Follow pulmonology consult. Restart home medication of diltiazem 90 mg by mouth every 6 hours and metoprolol 100 mg by mouth every 6 hours. Rhythm control with digoxin 250 g by mouth daily. Anticoagulation with Apixaban 5 mg by mouth twice a day. Telemetry monitoring. Keep magnesium greater than 2 and potassium greater than 4. Follow cardiology consultation. Troponin 0.051, 0.075, 0.064, EKG showing atrial fibrillation with RVR and ST wave changes. Likely due to demand. ACS ruled out. Recent echo in October with no regional wall motion abnormalities. Continue aspirin and Lipitor. Follow cardiology consult. Recent echo from October showing EF 55-60% with mild concentric LVH. Patient euvolemic at this time. Continue beta noam. Follow cardiology consult. Continue aspirin and Lipitor. BP 137/71. Continue diltiazem and metoprolol. Monitor vitals, adjust medications as necessary. Apixaban. Protonix by mouth. Patient's respiratory status slowly improving. Currently on IV antibiotics for treatment of pneumonia. Optimizing COPD medications. Pulmonology on board. Patient is pending clinical improvement. Rule out C. difficile. Possible DC by Friday as per Pulmonology team. Can probably be transferred out of MICU as per Pulmonology.
[2018-11-24] MEDS: LOPERAMIDE 2 MG CAP PO SCH ×2 (17:32→20:55)
[2018-11-24] MEDS: ATORVASTATIN 80 MG TAB PO SCH (19:46)
[2018-11-25] MEDS: IPRATROPIUM-ALBUTEROL 3 ML NEB INHALATION SCH ×6 (03:31→23:48)
[2018-11-25 04:48] LABS: Basophils % (A) 0 %; Eosinophils # (A) 0.1 k/uL (0-0.7); Eosinophils % (A) 1 %; HCT 41.7 % (39.0-53.0); Hypochromasia Slight; Lymphocytes # (A) 1.5 k/uL (1.0-4.8); Lymphocytes % (A) 15 %; MCH 30.1 pg (25.0-35.0); MCHC 31.3 g/dL (31.0-37.0); MCV 96.2 fL (80.0-100.0); Mean Platelet Volume 7.4; Monocytes # (A) 0.4 k/uL (0-1.0); Monocytes % (A) 3 %; Neutrophils # (A) 8.4 k/uL (1.3-7.7); Neutrophils % (A) 80 %; Platelet Count 294 k/uL (150-450); RBC 4.33 m/uL (4.30-5.90); RDW 13.9 % (11.5-15.5); WBC 10.5 k/uL (3.8-10.6)
[2018-11-25 04:59] LABS: Anion Gap 5 mmol/L; Blood Urea Nitrogen 17 mg/dL (9-20); Calcium 9.8 mg/dL (8.4-10.2); Carbon Dioxide 26 mmol/L (22-30); Chloride 109 mmol/L (98-107); Glucose 133 mg/dL (74-99); Potassium 3.6 mmol/L (3.5-5.1); Sodium 140 mmol/L (137-145)
[2018-11-25] MEDS: METOPROLOL TARTRATE 50 MG TAB PO SCH ×2 (05:08→16:03)
[2018-11-25] MEDS ORDERED: POTASSIUM CHLORIDE ER 20 MEQ TAB.ER PO SCH (06:00)
[2018-11-25] MEDS: PANTOPRAZOLE 40 MG TABLET PO SCH (06:05)
[2018-11-25] MEDS: HYDROcodone/APAP 10-325MG 1 EACH TAB PO PRN ×3 (07:03→20:22)
[2018-11-25] MEDS: LOPERAMIDE 2 MG CAP PO SCH ×4 (07:03→22:17)
[2018-11-25] MEDS: SYMBICORT 160-4.5 MCG INHALER INHALATION SCH ×2 (07:07→20:31)
--- NOTE | 2018-11-25 07:23 | XR ---
EXAMINATION TYPE: XR chest 1V portable DATE OF EXAM: 11/25/2018 COMPARISON: 11/24/2018 HISTORY: Shortness of breath. TECHNIQUE: Single frontal view of the chest is obtained. FINDINGS: There is improved aeration of the left lung base with persistent left basilar/infrahilar o pacity. New strand-like right infrahilar opacity is likely related to atelectasis. Remainder the lung s are clear. Mild multilevel degenerative changes of the spine are seen. Cardia mediastinal silhouett e is within normal limits. Osseous structures display no acute pathology. IMPRESSION: New probable strand-like right infrahilar atelectasis and improving left basilar consoli dation.
[2018-11-25] MEDS: PIPERACILLIN-TAZOBACTAM 3.375 GM in SODIUM CHLORIDE 0.9% 100 ML IVPB SCH ×2 (08:11→15:58)
[2018-11-25] MEDS: predniSONE 20 MG TAB PO SCH (08:13)
[2018-11-25] MEDS: guaiFENesin 600 MG TABLET.ER PO SCH ×2 (08:13→20:25)
[2018-11-25] MEDS: FLUTICASONE 50MCG/SPRAY NASAL 16GM EA NOSTRIL SCH (08:13)
[2018-11-25] MEDS: APIXABAN 5 MG TAB PO SCH ×2 (08:13→20:24)
[2018-11-25] MEDS: DIGOXIN 250 MCG TAB PO SCH (08:13)
[2018-11-25] MEDS: ASPIRIN 81 MG PO SCH (08:13)
--- NOTE | 2018-11-25 09:44 | P.PN ---
Subjective Progress Note Date: 11/25/18 Principal diagnosis: Acute on chronic hypoxic respiratory failure, left lower lobe pneumonia, likely healthcare acquired This is a very pleasant 68-year-old gentleman follows Dr. Suazo as his primary care physician. He has a history of coronary artery disease, CVA/TIA, GERD, h ypertension, hyperlipidemia, Ana Laura arthritis, benign prostatic hypertrophy, irritable bowel syndrome. Has has a history of Gold stage III chronic obstructive pulmonary disease and follows with Dr. Bravo in our office for the same. He is a 56 year history of smoking 2-3 packs per day however quit in May 2018. He's been maintained on DuoNeb inhalations and Symbicort in the outpatient setting. He also is known to have a left upper lobe lung nodule measuring 1 cm. PET scan revealed no suspicious hypermetabolic uptake. This is being followed in the outpatient setting. He presented here to the emergency room yesterday with complaints of difficulty breathing from the extended care facility he was discharged to from here on 10/05/2018. He was found to have oxygen saturations in the 70s using a nasal cannula. Chest x-ray revealed a new left lower lobe consolidation compared to previous on 11/08/2018. White count 20, hemoglobin 14.5. Creatinine 0.84. Troponin 0.051. ProBNP 1760. He is seen today in consultation on the selective care unit. He is currently awake and alert In a chair at the bedside. Currently on 50% nonrebreather mask he's been afebrile. He did wear her BiPAP throughout the night. He is having issues with atrial fibrillation with a rapid ventricular response. He is anticoagulated with Eliquis. He has been initiated on DuoNeb inhalations, prednisone, vancomycin. Patient was reevaluated today on 11/22/2018, he was transferred to the ICU yesterday mostly because his O2 saturation was marginal in spite of being on BiPAP on 100%.on the 100% nonrebreather, his pO2 was 75 pCO2 was 36 and pH was 7.46. However that chest x-ray and the limited infiltrate noted in the left lower lobe does not clearly correlate with the findings noted on the chest x-ra y. Hence I have recommended a CT angiogram of the chest to be done today, and it is pending. Patient is on high flow nasal cannula at present, O2 saturation is in the low 90s, feeling a bit better compared to yesterday. Remains on antibiotics bronchodilators and steroids.WBC count is 11.7 hemoglobin is 12.4 lites are normal renal profile is normal.sputum cultures are pending, however in the past the patient, patient had Klebsiella and Serratia marcescens pneumonia.today I discontinued vancomycin, and The patient on Zosyn.ordered CT of the chest to rule out pulmonary embolism, and that is pending. Patient is already on anticoagulation therapy. On 11/25/2018 patient seen in follow-up in intensive care unit, he sitting up in the recliner, in no acute distress, currently on 4 L of oxygen and his pulse ox is 94%, he is afebrile, hemodynamically patient is stable, no complaints of worsening dyspnea, or chest pain, he did wear BiPAP at bedtime, with pressures of 12 and 6 and FiO2 of 50%. These labs were reviewed, and are relatively unremarkable. Lung sounds reveal some rhonchi, patient has an occasional cough with production of phlegm. Overall she is doing much better, breathing easier. Sputum culture showed Linda albicans, blood cultures. Antibiotic coverage in the form of Zosyn Objective - Vital Signs Vital signs: Vital Signs Temp 97.8 F 11/25/18 08:00 Pulse 75 11/25/18 08:00 Resp 16 11/25/18 08:00 BP 139/80 11/25/18 08:00 Pulse Ox 94 L 11/25/18 08:00 Intake & Output 11/24/18 11/25/18 11/25/18 18:59 06:59 18:59 Intake Total 990 120 300 Output Total 353 450 0 Balance 637 -330 300 Weight 98.6 kg Intake: IV 340 120 100 NS @ 100ml/hr 240 20 0 Piperacillin-Tazobactam 3 100 100 100 .375 gm In Sodium Chloride 0.9% 100 ml @ 25 mls/hr IVPB Q8HR PRIYANKA Rx# :[id number] Intake, IV Titration 200 Amount Magnesium Sulfate-D5w Pmx 200 1 gm In Dextrose/Water 1 100ml.bag @ 100 mls/hr IVPB Q1H PRIYANKA Rx#: [id number] Oral 450 200 Output: Urine 350 450 0 Stool 3 Other: Voiding Method Urinal Urinal Urinal # Voids 1 # Bowel Movements 1 1 1 - Exam GENERAL EXAM: Alert, pleasant, 68-year-old white male on 4 L of oxygen comfortable in no apparent distress. HEAD: Normocephalic/atraumatic. EYES: Normal reaction of pupils, equal size. Conjunctiva pink, sclera white. NOSE: Clear with pink turbinates. THROAT: No erythema or exudates. NECK: No masses, no JVD, no thyroid enlargement, no adenopathy. CHEST: No chest wall deformity. Symmetrical expansion. LUNGS: Equal air entry with scattered rhonchi CVS: Regular rate and rhythm, normal S1 and S2, no gallops, no murmurs, no rubs ABDOMEN: Soft, nontender. No hepatosplenomegaly, normal bowel sounds, no guarding or rigidity. EXTREMITIES: No clubbing, no edema, no cyanosis, 2+ pulses and upper and lower extremities. MUSCULOSKELETAL: Muscle strength and tone normal. SPINE: No scoliosis or deformity SKIN: No rashes CENTRAL NERVOUS SYSTEM: Alert and oriented -3. No focal deficits, tone is normal in all 4 extremities. PSYCHIATRIC: Alert and oriented -3. Appropriate affect. Intact judgment and insight. - Labs CBC & Chem 7: 11/25/18 04:32 11/25/18 04:32 Labs: Abnormal Lab Results - Last 24 Hours (Table) 11/25/18 11/25/18 Range/Units 04:32 04:32 Neutrophils # 8.4 H (1.3-7.7) k/uL Chloride 109 H (98-107) mmol/L Glucose 133 H (74-99) mg/dL Microbiology - Last 24 Hours (Table) 11/21/18 10:56 Blood Culture - Preliminary Blood No Growth after 72 hours Assessment and Plan Plan: 1 acute on chronic hypoxic respiratory failure, most likely secondary to healthcare acquired pneumonia, previously was secondary to Serratia marcescens and Klebsiella pneumonia. However the extensiveness of the pneumonia the chest x-ray does not correlate with the profound hypoxemia that the patient has based on the ABG, hence I recommended CT angiogram of the chest. CT angios chest was completed on 11/22/2018 and did not show evidence of a large central or lobar pulmonary embolus, it was a limited exam related to breathing motion. There is subtle tree-in-bud opacities in the mid and lower lungs that could correlate for atypical infections bronchiolitis a mild aspiration. 2 atrial fibrillation with poorly controlled rapid ventricular rate, patient is maximized on digoxin and Lopressor and Cardizem. Being followed by cardiology. Suspect that his atrial fibrillation is another contributing factor to his hypoxemia. 3 coronary artery disease 4 solitary lung nodule, being followed on every six-month basis 5 hypertension 6 irritable bowel syndrome 7 [id number] smoking history quit in May of 2018 8 GERD with esophagitis 9 degenerative joint disease Plan: We'll continue with current medical treatment, hemodynamically patient is stable, no fever or chills, continue breathing treatments, oral prednisone, Mucinex. Increase ambulation. Today's chest x-ray was reviewed with Dr. Rodriguez, and shows a new strand-like right infrahilar atelectasis and improving left basilar consolidation. Clinically patient is improving as well. We'll continue to follow. I performed a history & physical examination of the patient and discussed their management with my nurse practitioner, Aicha Mosquera. I reviewed the nurse practitioner's note and agree with the documented findings and plan of care. Lung sounds are positive for diffuse rhonchi.. The findings and the impression was discussed with the patient. I attest to the documentation by the nurse practitioner. Time with Patient: Less than 30
--- NOTE | 2018-11-25 11:38 | PN ---
PROGRESS NOTE A 68-year-old gentleman admitted to hospital with respiratory insufficiency, also has atrial fibrillation with poorly controlled ventricular rate. Since admission, he remained in A. fib with controlled ventricular rate. I stopped the Cardizem. He is currently on digoxin and Lopressor 100 q.6. I am going to cut that down to 100 q.8. On exam, heart rate is 75 beats per minute. Blood pressure is 139/82. Respiratory rate is 18. Chest exam reveals diminished air entry at the bases. Heart exam reveals first and second heart sounds. No gallop. Abdomen is soft. Examination of extremities did not reveal any edema. Peripheral pulses are felt. Labs show a hemoglobin of 13, platelet count is 294. Potassium is 3.6. Creatinine is 0.7. ASSESSMENT: Chronic atrial fibrillation with controlled ventricular rate. The patient will continue the Eliquis, Lanoxin, metoprolol. I will decrease the metoprolol dose to 100 q.8. MMDLL / DANIAN: [id number] /
--- NOTE | 2018-11-25 13:31 | P.PN ---
Subjective Progress Note Date: 11/25/18 Principal diagnosis: Pneumonia Patient seen and examined. No acute events overnight. Patient reports great improvement in his breathing since yesterday. He continues to complain of pressure-like sensation in his right nostril and sinuses. Denies any chest pain or palpitations. No nausea or vomiting. No fever or chills. On 4 L nasal cannula saturating high 90s. Objective - Vital Signs Vital signs: Vital Signs Temp 97.8 F 11/25/18 08:00 Pulse 91 11/25/18 12:00 Resp 67 H 11/25/18 12:00 BP 155/77 11/25/18 12:00 Pulse Ox 88 L 11/25/18 12:00 Intake & Output 11/24/18 11/25/18 11/25/18 18:59 06:59 18:59 Intake Total 990 120 500 Output Total 353 450 0 Balance 637 -330 500 Weight 98.6 kg Intake: IV 340 120 100 NS @ 100ml/hr 240 20 0 Piperacillin-Tazobactam 3 100 100 100 .375 gm In Sodium Chloride 0.9% 100 ml @ 25 mls/hr IVPB Q8HR [facility] Rx# :[id number] Intake, IV Titration 200 Amount Magnesium Sulfate-D5w Pmx 200 1 gm In Dextrose/Water 1 100ml.bag @ 100 mls/hr IVPB Q1H [facility] Rx#: [id number] Oral 450 400 Output: Urine 350 450 0 Stool 3 Other: Voiding Method Urinal Urinal Urinal # Voids 1 # Bowel Movements 1 1 1 - Exam General: [non toxic], [on 4 L nasal cannula], [appears at stated age] Derm: [warm], [dry] Head: [atraumatic], [normocephalic], [symmetric] Eyes: [EOMI], [no lid lag], [anicteric sclera] Mouth: [no lip lesion], [mucus membranes moist] Cardiovascular: [S1S2 reg], [no murmur], [positive DP pulse bilateral] Lungs: [Clear to auscultation bilaterally with rales in the bases], [no accessory muscle use] Abdominal: [soft], [ nontender to palpation], [no guarding], [no appreciable organomegaly] Ext: [no gross muscle atrophy], [no edema], [no contractures] Neuro: [no focal neuro deficits] - Labs CBC & Chem 7: 11/25/18 04:32 11/25/18 04:32 Labs: Abnormal Lab Results - Last 24 Hours (Table) 11/25/18 11/25/18 Range/Units 04:32 04:32 Neutrophils # 8.4 H (1.3-7.7) k/uL Chloride 109 H (98-107) mmol/L Glucose 133 H (74-99) mg/dL Microbiology - Last 24 Hours (Table) 11/21/18 10:56 Blood Culture - Preliminary Blood No Growth after 96 hours Assessment and Plan Assessment: Assessment and Plan Diarrhea Acute hypoxic respiratory failure Sepsis Hospital-acquired pneumonia COPD exacerbation Atrial fibrillation with rapid ventricular rate Troponin elevation Diastolic heart failure History of CVA and CAD Hypertension DVT and GI prophylaxis Likely from given antibiotics. Follow C. diff. Trial of Imodium. Multifactorial. Combination of HCAP, COPD, diastolic CHF, A. fib with RVR. Continue IV antibiotics. Optimize COPD medications. Patient appears euvolemic, will avoid diuresing at this time. Optimize cardiac medications to rate control A. fib. Continue nasal cannula, BiPAP as necessary. CTA chest rules out PE. Follow pulmonology and cardiology consult. Meets criteria. Tachycardic, elevated respiratory rate, leukocytosis with source of infection. Lactic acid 2.7-1.5. Chest x-ray showing left lower lobe consolidation. Started on Zosyn IV for treatment of HCAP. Vancomycin discontinued due to previous sputum culture. Add Mucinex. Tylenol as needed for fever. Sputum culture grows Linda albicans. Blood cultures prelim negative at 96 hours. Treatment as above. Chest x-ray shows improvement in pneumonia. DuoNeb every 4 hours scheduled and as needed for shortness of breath and wheezing. Supplemental O2 via nasal cannula or BiPAP. Prednisone by mouth for a total of 5 days (2 more days). Follow pulmonology consult. Restart home medication of diltiazem 90 mg by mouth every 6 hours and metoprolol 100 mg by mouth every 6 hours. Rhythm control with digoxin 250 g by mouth daily. Anticoagulation with Apixaban 5 mg by mouth twice a day. Telemetry monitoring. Keep magnesium greater than 2 and potassium greater than 4. Follow cardiology consultation. Troponin 0.051, 0.075, 0.064, EKG showing atrial fibrillation with RVR and ST wave changes. Likely due to demand. ACS ruled out. Recent echo in October with no regional wall motion abnormalities. Continue aspirin and Lipitor. Follow cardiology consult. Recent echo from October showing EF 55-60% with mild concentric LVH. Patient euvolemic at this time. Continue beta noam. Follow cardiology consult. Continue aspirin and Lipitor. BP 155/77. Continue diltiazem and metoprolol. Monitor vitals, adjust medications as necessary. Apixaban. Protonix by mouth. Patient's respiratory status improved. Currently on IV antibiotics for treatment of pneumonia. Optimizing COPD medications. Rule out C. difficile. Transfer out of MICU as per Pulmonology. Likely DC in 2 days.
[2018-11-25] MEDS: ATORVASTATIN 80 MG TAB PO SCH (20:25)
[2018-11-26] MEDS: METOPROLOL TARTRATE 50 MG TAB PO SCH ×3 (01:05→15:07)
[2018-11-26] MEDS: PIPERACILLIN-TAZOBACTAM 3.375 GM in SODIUM CHLORIDE 0.9% 100 ML IVPB SCH ×3 (01:05→15:07)
[2018-11-26] MEDS: HYDROcodone/APAP 10-325MG 1 EACH TAB PO PRN ×4 (02:27→20:11)
[2018-11-26] MEDS: IPRATROPIUM-ALBUTEROL 3 ML NEB INHALATION SCH ×6 (03:37→23:07)
[2018-11-26] MEDS: SYMBICORT 160-4.5 MCG INHALER INHALATION SCH ×2 (07:22→19:32)
[2018-11-26] MEDS: APIXABAN 5 MG TAB PO SCH ×2 (08:12→21:00)
[2018-11-26] MEDS: predniSONE 20 MG TAB PO SCH (08:12)
[2018-11-26] MEDS: guaiFENesin 600 MG TABLET.ER PO SCH ×2 (08:13→21:00)
[2018-11-26] MEDS: ASPIRIN 81 MG PO SCH (08:13)
[2018-11-26] MEDS: PANTOPRAZOLE 40 MG TABLET PO SCH (08:13)
[2018-11-26] MEDS: LOPERAMIDE 2 MG CAP PO SCH ×4 (08:13→22:09)
[2018-11-26] MEDS: DIGOXIN 250 MCG TAB PO SCH (08:13)
[2018-11-26] MEDS: FLUTICASONE 50MCG/SPRAY NASAL 16GM EA NOSTRIL SCH (08:14)
--- NOTE | 2018-11-26 09:25 | P.PN ---
Subjective Progress Note Date: 11/26/18 Principal diagnosis: Acute on chronic hypoxic respiratory failure, left lower lobe pneumonia, likely healthcare acquired This is a very pleasant 68-year-old gentleman follows Dr. Suazo as his primary care physician. He has a history of coronary artery disease, CVA/TIA, GERD, h ypertension, hyperlipidemia, Ana Laura arthritis, benign prostatic hypertrophy, irritable bowel syndrome. Has has a history of Gold stage III chronic obstructive pulmonary disease and follows with Dr. Bravo in our office for the same. He is a 56 year history of smoking 2-3 packs per day however quit in May 2018. He's been maintained on DuoNeb inhalations and Symbicort in the outpatient setting. He also is known to have a left upper lobe lung nodule measuring 1 cm. PET scan revealed no suspicious hypermetabolic uptake. This is being followed in the outpatient setting. He presented here to the emergency room yesterday with complaints of difficulty breathing from the extended care facility he was discharged to from here on 10/05/2018. He was found to have oxygen saturations in the 70s using a nasal cannula. Chest x-ray revealed a new left lower lobe consolidation compared to previous on 11/08/2018. White count 20, hemoglobin 14.5. Creatinine 0.84. Troponin 0.051. ProBNP 1760. He is seen today in consultation on the selective care unit. He is currently awake and alert In a chair at the bedside. Currently on 50% nonrebreather mask he's been afebrile. He did wear her BiPAP throughout the night. He is having issues with atrial fibrillation with a rapid ventricular response. He is anticoagulated with Eliquis. He has been initiated on DuoNeb inhalations, prednisone, vancomycin. Patient was reevaluated today on 11/22/2018, he was transferred to the ICU yesterday mostly because his O2 saturation was marginal in spite of being on BiPAP on 100%.on the 100% nonrebreather, his pO2 was 75 pCO2 was 36 and pH was 7.46. However that chest x-ray and the limited infiltrate noted in the left lower lobe does not clearly correlate with the findings noted on the chest x-ra y. Hence I have recommended a CT angiogram of the chest to be done today, and it is pending. Patient is on high flow nasal cannula at present, O2 saturation is in the low 90s, feeling a bit better compared to yesterday. Remains on antibiotics bronchodilators and steroids.WBC count is 11.7 hemoglobin is 12.4 lites are normal renal profile is normal.sputum cultures are pending, however in the past the patient, patient had Klebsiella and Serratia marcescens pneumonia.today I discontinued vancomycin, and The patient on Zosyn.ordered CT of the chest to rule out pulmonary embolism, and that is pending. Patient is already on anticoagulation therapy. On 11/25/2018 patient seen in follow-up in intensive care unit, he sitting up in the recliner, in no acute distress, currently on 4 L of oxygen and his pulse ox is 94%, he is afebrile, hemodynamically patient is stable, no complaints of worsening dyspnea, or chest pain, he did wear BiPAP at bedtime, with pressures of 12 and 6 and FiO2 of 50%. These labs were reviewed, and are relatively unremarkable. Lung sounds reveal some rhonchi, patient has an occasional cough with production of phlegm. Overall she is doing much better, breathing easier. Sputum culture showed Linda albicans, blood cultures. Antibiotic coverage in the form of Zosyn On 11/26/2018 patient seen in follow-up in the intensive care unit, he is sitting up in the recliner, in no acute distress, he states last night he couldn't sleep all related to his back pain, and as far as breathing is improving, lung sounds are positive for some expiratory wheezes, and rhonchi, patient does have a congested cough, nonproductive. He has been awaiting a bed on the general medical floor. He is on room air currently, and his pulse ox is 90-92%, 0.9 normal saline at a rate of 10 ML per hour, no other drips. Blood culture showed no growth, sputum culture was positive for Linda albicans, maintenance on IV Zosyn for antibiotic coverage, he is complaining of sinus congestion, and facial pain Objective - Vital Signs Vital signs: Vital Signs Temp 98.5 F 11/26/18 08:00 Pulse 90 11/26/18 08:00 Resp 27 H 11/26/18 08:00 BP 131/65 11/26/18 08:00 Pulse Ox 92 L 11/26/18 08:00 Intake & Output 11/25/18 11/26/18 11/26/18 18:59 06:59 18:59 Intake Total 700 250 Output Total 400 400 Balance 300 -150 Weight 99.5 kg Intake: IV 200 100 NS @ 100ml/hr 0 Piperacillin-Tazobactam 3 200 100 .375 gm In Sodium Chloride 0.9% 100 ml @ 25 mls/hr IVPB Q8HR [facility] Rx# :[id number] Oral 500 150 Output: Urine 400 400 Other: Voiding Method Urinal Urinal Urinal # Voids 1 1 # Bowel Movements 1 2 - Exam GENERAL EXAM: Alert, pleasant, 68-year-old white male on 4 L of oxygen comfortable in no apparent distress. HEAD: Normocephalic/atraumatic. EYES: Normal reaction of pupils, equal size. Conjunctiva pink, sclera white. NOSE: Clear with pink turbinates. THROAT: No erythema or exudates. NECK: No masses, no JVD, no thyroid enlargement, no adenopathy. CHEST: No chest wall deformity. Symmetrical expansion. LUNGS: Equal air entry with scattered rhonchi CVS: Regular rate and rhythm, normal S1 and S2, no gallops, no murmurs, no rubs ABDOMEN: Soft, nontender. No hepatosplenomegaly, normal bowel sounds, no guarding or rigidity. EXTREMITIES: No clubbing, no edema, no cyanosis, 2+ pulses and upper and lower extremities. MUSCULOSKELETAL: Muscle strength and tone normal. SPINE: No scoliosis or deformity SKIN: No rashes CENTRAL NERVOUS SYSTEM: Alert and oriented -3. No focal deficits, tone is normal in all 4 extremities. PSYCHIATRIC: Alert and oriented -3. Appropriate affect. Intact judgment and insight. - Labs CBC & Chem 7: 11/25/18 04:32 11/25/18 04:32 Labs: Microbiology - Last 24 Hours (Table) 11/21/18 10:56 Blood Culture - Preliminary Blood No Growth after 96 hours Assessment and Plan Plan: 1 acute on chronic hypoxic respiratory failure, most likely secondary to healthcare acquired pneumonia, previously was secondary to Serratia marcescens and Klebsiella pneumonia. However the extensiveness of the pneumonia the chest x-ray does not correlate with the profound hypoxemia that the patient has based on the ABG, hence I recommended CT angiogram of the chest. CT angios chest was completed on 11/22/2018 and did not show evidence of a large central or lobar pulmonary embolus, it was a limited exam related to breathing motion. There is subtle tree-in-bud opacities in the mid and lower lungs that could correlate for atypical infections bronchiolitis a mild aspiration. 2 atrial fibrillation with poorly controlled rapid ventricular rate, patient is maximized on digoxin and Lopressor and Cardizem. Being followed by cardiology. Suspect that his atrial fibrillation is another contributing factor to his hypoxemia. 3 coronary artery disease 4 solitary lung nodule, being followed on every six-month basis 5 hypertension 6 irritable bowel syndrome 7 25-[id number] smoking history quit in May of 2018 8 GERD with esophagitis 9 degenerative joint disease Plan: Patient is stable to go out of intensive care unit to general medical floor, continue with current antibiotic coverage, so far the sputum culture was positive for Linda only. Clinically patient is improving, breathing easier, wean FiO2, increase ambulation, patient is complaining of some sinus congestion, encouraged to use [place] nasal drops for tenacious secretions. We'll continue to follow. I performed a history & physical examination of the patient and discussed their management with my nurse practitioner, Aicha Mosquera. I reviewed the nurse practitioner's note and agree with the documented findings and plan of care. Daphney ng sounds are positive for diffuse rhonchi.. The findings and the impression was discussed with the patient. I attest to the documentation by the nurse practitioner. Time with Patient: Less than 30
--- NOTE | 2018-11-26 14:08 | P.PN ---
Subjective Progress Note Date: 11/26/18 The patient is a 68 yo M with a PMH of COPD, CAD, Afib, HTN, hx of CVA, HLD, and OA who mcpherson presented to [facility] on 11/08/18 for seizures, underwent an intubation for airway protection and subsequently transferred to [facility] for neurology evaluation. As per the at the bedside, the patient was discharged on 11/20/18 from there to [facility] from where she received a call on 11/21/18 for worsening respiratory status of the patient. The patient presented back to [facility] ED where he underwent an extensive evaluation with CXR showing a LLL consolidation along with leukocytosis of 20. The patient was admitted to the hospital for acute hypoxic respiratory failure due to sepsis from HCAP along with COPD. He was started on IV abxs along with breathing treatments and his symptoms gradually improved. The patient was seen and examined at the bedside. He reports that his breathing continues to improve. He denied chest pain, palpitations, nausea, vomiting, fever, or chills. He maye nues to have coughing. Objective - Vital Signs Vital signs: Vital Signs Temp 98.5 F 11/26/18 08:00 Pulse 88 11/26/18 11:29 Resp 27 H 11/26/18 08:00 BP 131/65 11/26/18 08:00 Pulse Ox 92 L 11/26/18 08:00 Intake & Output 11/25/18 11/26/18 11/26/18 18:59 06:59 18:59 Intake Total 700 250 Output Total 400 400 Balance 300 -150 Weight 99.5 kg Intake: IV 200 100 NS @ 100ml/hr 0 Piperacillin-Tazobactam 3 200 100 .375 gm In Sodium Chloride 0.9% 100 ml @ 25 mls/hr IVPB Q8HR [facility] Rx# :[id number] Oral 500 150 Output: Urine 400 400 Other: Voiding Method Urinal Urinal Urinal # Voids 1 1 # Bowel Movements 1 2 - Exam General: Non-toxic, in no acute distress, appears stated age, obese HEENT: NC/AT, anicteric sclerae, moist conjunctiva, no lid-lag, PERRLA Cardiovascular: S1/S2 wnl, no murmurs, rubs, or gallops Lungs: Scattered ronchi, no rales appreciated, normal respiratory effort, no accessory muscle use Abdominal: Soft, non-tender, non-distended, no guarding, rebound, or rigidity Skin: Warm, dry Extremities: No edema or contractures Psychiatric: Alert and oriented to person, place and time, appropriate affect Neuro: CN II-XII grossly intact, Strength 5/5 in all 4 extremities, Speech intact, Sensation to light touch grossly intact throughout - Labs CBC & Chem 7: 11/25/18 04:32 11/25/18 04:32 Labs: Microbiology - Last 24 Hours (Table) 11/21/18 10:56 Blood Culture - Preliminary Blood No Growth after 120 hours Assessment and Plan Plan: Acute hypoxic resp failure secondary to HCAP and COPD -C/w bronchodilators -C/w IV Abxs (Zosyn) -F/u cultures -Pulm recs appreciated Acute COPD exacerbation -C/w bronchodilators and oral Prednisone Afib -C/w rate control w/ Cardizem and Lopressor -C/w Eliquis -Cardiac monitoring Sepsis, resolved DVT//GI proph -Eliquis -Protonix
[2018-11-26] MEDS: traMADol 50 MG TAB PO PRN (17:27)
[2018-11-26] MEDS: ATORVASTATIN 80 MG TAB PO SCH (21:00)
[2018-11-27] MEDS: traMADol 50 MG TAB PO PRN (00:17)
[2018-11-27] MEDS: PIPERACILLIN-TAZOBACTAM 3.375 GM in SODIUM CHLORIDE 0.9% 100 ML IVPB SCH ×2 (00:17→08:14)
[2018-11-27] MEDS: METOPROLOL TARTRATE 50 MG TAB PO SCH ×3 (00:17→15:34)
[2018-11-27] MEDS: IPRATROPIUM-ALBUTEROL 3 ML NEB INHALATION SCH ×5 (03:05→21:47)
[2018-11-27] MEDS: HYDROcodone/APAP 10-325MG 1 EACH TAB PO PRN ×2 (04:24→15:34)
[2018-11-27 05:51] LABS: HCT 38.1 % (39.0-53.0); HGB 12.3 gm/dL (13.0-17.5); MCH 30.6 pg (25.0-35.0); MCHC 32.2 g/dL (31.0-37.0); MCV 94.9 fL (80.0-100.0); Mean Platelet Volume 7.4; Platelet Count 288 k/uL (150-450); RBC 4.01 m/uL (4.30-5.90); RDW 14.2 % (11.5-15.5)
[2018-11-27 06:00] LABS: ALT 40 U/L (21-72); AST 23 U/L (17-59); Albumin 2.9 g/dL (3.5-5.0); Alkaline Phosphatase 59 U/L (38-126); Anion Gap 7 mmol/L; Blood Urea Nitrogen 17 mg/dL (9-20); Calcium 9.7 mg/dL (8.4-10.2); Carbon Dioxide 29 mmol/L (22-30); Chloride 104 mmol/L (98-107); Glucose 76 mg/dL (74-99); Potassium 3.7 mmol/L (3.5-5.1); Sodium 140 mmol/L (137-145); Total Bilirubin 0.6 mg/dL (0.2-1.3); Total Protein 5.7 g/dL (6.3-8.2)
[2018-11-27] MEDS: SYMBICORT 160-4.5 MCG INHALER INHALATION SCH ×2 (08:05→21:47)
[2018-11-27] MEDS: guaiFENesin 600 MG TABLET.ER PO SCH (08:14)
[2018-11-27] MEDS: PANTOPRAZOLE 40 MG TABLET PO SCH (08:14)
[2018-11-27] MEDS: ASPIRIN 81 MG PO SCH (08:14)
[2018-11-27] MEDS: DIGOXIN 250 MCG TAB PO SCH (08:14)
[2018-11-27] MEDS: predniSONE 20 MG TAB PO SCH (08:15)
[2018-11-27] MEDS: APIXABAN 5 MG TAB PO SCH (08:15)
[2018-11-27] MEDS: FLUTICASONE 50MCG/SPRAY NASAL 16GM EA NOSTRIL SCH (08:16)
[2018-11-27 09:23] VITALS: BMI 31.0
--- NOTE | 2018-11-27 09:47 | P.PN ---
Subjective Progress Note Date: 11/27/18 Principal diagnosis: Left lower lobe pneumonia This is a very pleasant 68-year-old gentleman follows Dr. Suazo as his primary care physician. He has a history of coronary artery disease, CVA/TIA, GERD, hypertension, hyperlipidemia, Ana Laura arthritis, benign prostatic hypertrophy, irritable bowel syndrome. Has has a history of Gold stage III chronic obstructive pulmonary disease and follows with Dr. Bravo in our office for the same. He is a 56 year history of smoking 2-3 packs per day however quit in May 2018. He's been maintained on DuoNeb inhalations and Symbicort in the outpatient setting. He also is known to have a left upper lobe lung nodule measuring 1 cm. PET scan revealed no suspicious hypermetabolic uptake. This is being followed in the outpatient setting. He presented here to the emergency room yesterday with complaints of difficulty breathing from the extended care facility he was discharged to from here on 10/05/2018. He was found to have ox ygen saturations in the 70s using a nasal cannula. Chest x-ray revealed a new left lower lobe consolidation compared to previous on 11/08/2018. White count 20, hemoglobin 14.5. Creatinine 0.84. Troponin 0.051. ProBNP 1760. He is seen today in consultation on the selective care unit. He is currently awake and alert In a chair at the bedside. Currently on 50% nonrebreather mask he's been afebrile. He did wear her BiPAP throughout the night. He is having issues with atrial fibrillation with a rapid ventricular response. He is anticoagulated with Eliquis. He has been initiated on DuoNeb inhalations, prednisone, vancomycin. Patient was reevaluated today on 11/22/2018, he was transferred to the ICU yesterday mostly because his O2 saturation was marginal in spite of being on BiPAP on 100%.on the 100% nonrebreather, his pO2 was 75 pCO2 was 36 and pH was 7.46. However that chest x-ray and the limited infiltrate noted in the left lower lobe does not clearly correlate with the findings noted on the chest x- ray. Hence I have recommended a CT angiogram of the chest to be done today, and it is pending. Patient is on high flow nasal cannula at present, O2 saturation is in the low 90s, feeling a bit better compared to yesterday. Remains on antibiotics bronchodilators and steroids.WBC count is 11.7 hemoglobin is 12.4 lites are normal renal profile is normal.sputum cultures are pending, however in the past the patient, patient had Klebsiella and Serratia marcescens pneumonia.today I discontinued vancomycin, and The patient on Zosyn.ordered CT of the chest to rule out pulmonary embolism, and that is pending. Patient is already on anticoagulation therapy. On 11/25/2018 patient seen in follow-up in intensive care unit, he sitting up in the recliner, in no acute distress, currently on 4 L of oxygen and his pulse ox is 94%, he is afebrile, hemodynamically patient is stable, no complaints of worsening dyspnea, or chest pain, he did wear BiPAP at bedtime, with pressures of 12 and 6 and FiO2 of 50%. These labs were reviewed, and are relatively unremarkable. Lung sounds reveal some rhonchi, patient has an occasional cough with production of phlegm. Overall she is doing much better, breathing easier. Sputum culture showed Linda albicans, blood cultures. Antibiotic coverage in the form of Zosyn On 11/26/2018 patient seen in follow-up in the intensive care unit, he is sitting up in the recliner, in no acute distress, he states last night he couldn't sleep all related to his back pain, and as far as breathing is improving, lung sounds are positive for some expiratory wheezes, and rhonchi, patient does have a congested cough, nonproductive. He has been awaiting a bed on the general medical floor. He is on room air currently, and his pulse ox is 90-92%, 0.9 normal saline at a rate of 10 ML per hour, no other drips. Blood culture showed no growth, sputum culture was positive for Linda albicans, maintenance on IV Zosyn for antibiotic coverage, he is complaining of sinus congestion, and facial pain The patient is seen today 11/27/2018 in the ICU as an overflow patient. He is awake and alert in no acute distress. He's been up ambulating in the room without significant shortness of breath. He is maintaining O2 saturations in the 90s on 4 L/m per nasal cannula which is his home oxygen setting as well. He is afebrile. Hemodynamically stable. Sputum showed Linda only. Blood culture reveals no growth. White count 10.0. Hemoglobin 12.3. Creatinine 0.81. Remains on DuoNeb inhalations, Zosyn, Objective - Vital Signs Vital signs: Vital Signs Temp 97.7 F 11/27/18 04:00 Pulse 93 11/27/18 08:15 Resp 12 11/27/18 04:00 BP 136/62 11/27/18 04:00 Pulse Ox 94 L 11/27/18 04:00 Intake & Output 11/26/18 11/27/18 11/27/18 18:59 06:59 18:59 Intake Total 100 460 Output Total 700 400 Balance -600 60 Weight 98.2 kg 98.2 kg Intake: IV 100 100 NS @ 100ml/hr 100 Piperacillin-Tazobactam 3 100 .375 gm In Sodium Chloride 0.9% 100 ml @ 25 mls/hr IVPB Q8HR [facility] Rx# :[id number] Oral 360 Output: Urine 700 400 Other: Voiding Method Urinal Urinal # Voids 2 # Bowel Movements 1 1 - Exam GENERAL EXAM: Alert, active, comfortable in no apparent distress. 4 L/m per nasal cannula. HEAD: Normocephalic. EYES: Normal reaction of pupils, equal size. NOSE: Clear with pink turbinates. THROAT: No erythema or exudates. NECK: No masses, no JVD. CHEST: No chest wall deformity. LUNGS: Equal air entry with crackles in left posterior base, diminished CVS: S1 and S2 normal with no audible murmur, regular rhythm. ABDOMEN: No hepatosplenomegaly, normal bowel sounds, no guarding or rigidity. SPINE: No scoliosis or deformity SKIN: No rashes CENTRAL NERVOUS SYSTEM: No focal deficits, tone is normal in all 4 extremities. EXTREMITIES: There is no peripheral edema. No clubbing, no cyanosis. Peripheral pulses are intact. - Labs CBC & Chem 7: 11/27/18 05:13 11/27/18 05:13 Labs: Abnormal Lab Results - Last 24 Hours (Table) 11/27/18 11/27/18 Range/Units 05:13 05:13 RBC 4.01 L (4.30-5.90) m/uL Hgb 12.3 L (13.0-17.5) gm/dL Hct 38.1 L (39.0-53.0) % Total Protein 5.7 L (6.3-8.2) g/dL Albumin 2.9 L (3.5-5.0) g/dL Microbiology - Last 24 Hours (Table) 11/21/18 10:56 Blood Culture - Preliminary Blood No Growth after 120 hours Assessment and Plan Assessment: Impression: #1 Acute on chronic hypoxemic respiratory failure secondary to an acute left lower lobe infiltrate, suspect healthcare acquired pneumonia. Previous history of Serratia marcescens.. Culture this admission reveals no growth. CT angios chest was completed on 11/22/2018 and did not show evidence of a large central or lobar pulmonary embolus, it was a limited exam related to breathing motion. There is subtle tree-in-bud opacities in the mid and lower lungs that could correlate for atypical infections bronchiolitis a mild aspiration. #2 Atrial fibrillation with a rapid ventricular response, anticoagulated with Eliquis. On oral Cardizem, Lopressor, digoxin. #3 COPD, on home oxygen at bedtime, patient has an underlying FEV1 1.59 L or 48% of predicted, stage III COPD #4 History of CVA/TIA #5 Coronary artery disease #6 Solitary lung nodule in the left upper lobe, measuring 1 cm, the PET scan was completed and there was no suspicious uptake. This is being followed with the CT chest every 6 months #7 Hypertension, hyperlipidemia #8 Osteoarthritis #9 BPH #10 IBS #11 History of 53 years of smoking, of 2-3 packs per day, patient quit smoking in May 2018 #12 GERD/reflux Plan: The patient was seen and evaluated by Dr. Bravo. He is cleared for discharge from the pulmonary standpoint. Discontinue Zosyn. Complete course of Augmentin . Continue his home pulmonary medications. Continue his home oxygen. Follow- up in our office in 1-2 weeks' time. He is encouraged to call sooner with any recurrence of symptoms or other questions or concerns. I, the cosigning physician, performed a history & physical examination of the patient. Lungs sounds with few scattered rhonchi or crackles in left base, end expiratory wheeze, diminished. Maintaining good O2 saturations in the 90s on 15 L per Ventimask. I discussed the assessment and plan of care with my nurse practitioner, Radha Valenzuela. I attest to the above note as dictated by her.
--- NOTE | 2018-11-27 13:01 | P.DS ---
Providers Date of admission: 11/21/18 07:36 Expected date of discharge: 11/27/18 Attending physician: Davonte Bundy MD Consults: 11/21/18 07:36 Consult Physician Routine Consulting Provider: [facility] Consult Reason/Comments: rvr, elevated trop, heart failure Do you want consulting provider notified?: Yes, Notify in am 11/21/18 07:42 Consult Physician Routine Consulting Provider: Jp Santiago Consult Reason/Comments: PNA Do you want consulting provider notified?: Yes Primary care physician: David [place] Hospital Course: The patient is a 68 yo M with a PMH of COPD, CAD, Afib, HTN, hx of CVA, HLD, and OA who mcpherson presented to [facility] on 11/08/18 for seizures, underwent an intubation for airway protection and subsequently transferred to [facility] for neurology evaluation. As per the at the bedside, the patient was discharged on 11/20/18 from there to [facility] where she received a call on 11/21/18 for worsening respiratory status of the patient. The patient presented back to [facility] ED where he underwent an extensive evaluation with CXR showing a LLL consolidation along with leukocytosis of 20. The patient was admitted to the hospital for acute hypoxic respiratory failure due to sepsis from HCAP along with COPD. He was started on IV abxs along with breathing treatments. The patient was subsequently transferred to the medical ICU for borderline SpO2 despite being on 100% FiO2 on the BiPAP. The patient underwent a CT angiogram of the chest which failed to reveal any large central pulmonary embolism. The patient's oxygen requirements gradually decreased and his symptoms improved. The patient was seen and examined at the bedside on the day of discharge. He reports that his breathing continues to improve. He denied chest pain, palpitations, nausea, vomiting, fever, or chills. He continues to have coughing. He was reevaluated by physical therapy who recommended returning to subacute rehab. Physical Examination General: Non-toxic, in no acute distress, appears stated age, obese HEENT: NC/AT, anicteric sclerae, moist conjunctiva, no lid-lag, PERRLA Cardiovascular: S1/S2 wnl, no murmurs, rubs, or gallops Lungs: Mild scattered coarse breath sounds, normal respiratory effort, no accessory muscle use Abdominal: Soft, non-tender, non-distended, no guarding, rebound, or rigidity Skin: Warm, dry Extremities: No edema or contractures Psychiatric: Alert and oriented to person, place and time, appropriate affect Neuro: CN II-XII grossly intact, Strength 5/5 in all 4 extremities, Speech intact, Sensation to light touch grossly intact throughout Discharge diagnosis: Acute on chronic hypoxic respiratory failure secondary to healthcare associated pneumonia; acute COPD exacerbation; atrial fibrillation with RVR; hypertension; hyperlipidemia; CAD; history of CVA; solitary lung nodule in the left upper lobe, previously underwent PET scan which was unremarkable, undergoing CT chest q6 months A total of 45 minutes of time were spent preparing this complex discharge summary. Patient Condition at Discharge: Fair Plan - Discharge Summary Discharge Rx Participant: Yes New Discharge Prescriptions: No Action HYDROcodone/APAP 10-325MG [[place] 10-325] 1 tab PO Q6H PRN PRN Reason: Pain Omeprazole [PriLOSEC] 40 mg PO BID Gabapentin [Neurontin] 400 mg PO QID Naproxen 500 mg PO BID PRN PRN Reason: PAIN/INFLAMMATION Multivitamins, Thera [Multivitamin (formulary)] 1 tab PO DAILY Tamsulosin HCl [Flomax] 0.4 mg PO HS Cyclobenzaprine [Flexeril] 10 mg PO TID PRN #0 PRN Reason: Muscle Spasm Budesonide-Formot 160-4.5 Mcg [Symbicort 160-4.5 Mcg Inhaler] 1 puff INHALATION RT-BID PRN #0 PRN Reason: Wheezing predniSONE 20 mg PO DAILY Potassium Chloride ER [K-Dur 20] 20 meq PO BID Aspirin 81 mg PO DAILY Apixaban [Eliquis] 5 mg PO BID Digoxin 250 mcg PO DAILY Diltiazem HCl 90 mg PO Q6HR Ipratropium Nebulized [Atrovent Nebulized 0.2 MG/ML] 0.5 mg INHALATION RT-Q6H PRN PRN Reason: Shortness Of Breath Ipratropium-Albuterol Nebulize [Duoneb 0.5 mg-3 mg/3 ml Soln] 1 ampul INHALATION QID Metoprolol Tartrate [Lopressor] 100 mg PO Q6HR Ondansetron [Zofran ODT] 4 mg PO Q6HR PRN PRN Reason: Nausea Esomeprazole Magnesium [NexIUM] 40 mg PO DAILY Atorvastatin [Lipitor] 80 mg PO HS Discharge Medication List HYDROcodone/APAP 10-325MG [[place] 10-325] 1 tab PO Q6H PRN 12/01/15 [History] Omeprazole [PriLOSEC] 40 mg PO BID 06/25/16 [History] Gabapentin [Neurontin] 400 mg PO QID 05/19/18 [History] Multivitamins, Thera [Multivitamin (formulary)] 1 tab PO DAILY 05/19/18 [History] Naproxen 500 mg PO BID PRN 05/19/18 [History] Tamsulosin HCl [Flomax] 0.4 mg PO HS 05/19/18 [History] Cyclobenzaprine [Flexeril] 10 mg PO TID PRN #0 05/22/18 [Rx] Budesonide-Formot 160-4.5 Mcg [Symbicort 160-4.5 Mcg Inhaler] 1 puff INHALATION RT-BID PRN #0 05/26/18 [Rx] Apixaban [Eliquis] 5 mg PO BID 11/21/18 [History] Aspirin 81 mg PO DAILY 11/21/18 [History] Atorvastatin [Lipitor] 80 mg PO HS 11/21/18 [History] Digoxin 250 mcg PO DAILY 11/21/18 [History] Diltiazem HCl 90 mg PO Q6HR 11/21/18 [History] Esomeprazole Magnesium [NexIUM] 40 mg PO DAILY 11/21/18 [History] Ipratropium Nebulized [Atrovent Nebulized 0.2 MG/ML] 0.5 mg INHALATION RT-Q6H PRN 11/21/18 [History] Ipratropium-Albuterol Nebulize [Duoneb 0.5 mg-3 mg/3 ml Soln] 1 ampul INHALATION QID 11/21/18 [History] Metoprolol Tartrate [Lopressor] 100 mg PO Q6HR 11/21/18 [History] Ondansetron [Zofran ODT] 4 mg PO Q6HR PRN 11/21/18 [History] Potassium Chloride ER [K-Dur 20] 20 meq PO BID 11/21/18 [History] predniSONE 20 mg PO DAILY 11/21/18 [History] Follow up Appointment(s)/Referral(s): Plonka,David J, MD [Primary Care Provider] - 1-2 days Paco Helton MD [STAFF PHYSICIAN] - 12/23/18 1:30 pm Discharge Disposition: TRANSFER TO SNF/ECF
[2018-11-27 13:18] VITALS: BP 142/82; PULSE 74; RESP 20; TEMP 98
--- NOTE | 2018-11-27 13:44 | PN ---
PROGRESS NOTE The patient is feeling better. Shortness of breath has improved. He is ready to be transferred back to snf. He remains in atrial fibrillation with controlled ventricular rate. He is on Lopressor 100 q.8, which I am going to continue along with the Eliquis. PHYSICAL EXAMINATION: On exam, comfortable at rest. Vital signs are stable. Chest exam reveals good air entry bilaterally. Heart exam reveals first and second heart sounds, irregular rhythm. Examination of extremities did not reveal any edema. ASSESSMENT: Chronic atrial fibrillation with controlled ventricular rate. Stable for transfer. I will arrange followup in my office. MMODL / IJN: [id number] /
[2018-11-27] MEDS: LOPERAMIDE 2 MG CAP PO SCH (14:02)
[2018-11-27] MEDS ORDERED: AMOXIC-POT CLAV 875-125MG 1 EACH TAB PO SCH (21:00)
== END 2018-11-27 15:45 | DRG 871 ==
LOC: EC 06:09 → 3SCARD 07:36 → 2SICU 16:09
PROVIDERS: ADMIT Family Medicine; ATTEND Family Medicine
PROC: 5A09557 Assistance with Respiratory Ventilation, Greater than 96 Consecutive Hours, Continuous Positive Airway Pressure (ICD-10-PCS; principal; 2018-11-21)
DX: A41.9 Sepsis, unspecified organism (principal); J96.21 Acute and chronic respiratory failure with hypoxia; J18.9 Pneumonia, unspecified organism; J44.0 Chronic obstructive pulmonary disease with (acute) lower respiratory infection; J44.1 Chronic obstructive pulmonary disease with (acute) exacerbation; I50.32 Chronic diastolic (congestive) heart failure; I11.0 Hypertensive heart disease with heart failure; I48.0 Paroxysmal atrial fibrillation; R91.1 Solitary pulmonary nodule; E78.5 Hyperlipidemia, unspecified; Y95 Nosocomial condition; G89.29 Other chronic pain; M54.9 Dorsalgia, unspecified; I25.10 Atherosclerotic heart disease of native coronary artery without angina pectoris; K21.0 Gastro-esophageal reflux disease with esophagitis; M19.90 Unspecified osteoarthritis, unspecified site; N40.0 Benign prostatic hyperplasia without lower urinary tract symptoms; H81.49 Vertigo of central origin, unspecified ear; K58.0 Irritable bowel syndrome with diarrhea; K44.9 Diaphragmatic hernia without obstruction or gangrene; H93.13 Tinnitus, bilateral; F10.10 Alcohol abuse, uncomplicated; R77.8 Other specified abnormalities of plasma proteins; R32 Unspecified urinary incontinence; Z99.81 Dependence on supplemental oxygen; Z79.01 Long term (current) use of anticoagulants; Z79.82 Long term (current) use of aspirin; Z79.51 Long term (current) use of inhaled steroids; Z79.899 Other long term (current) drug therapy; Z87.01 Personal history of pneumonia (recurrent); Z87.891 Personal history of nicotine dependence; Z86.19 Personal history of other infectious and parasitic diseases; Z86.73 Personal history of transient ischemic attack (TIA), and cerebral infarction without residual deficits; Z96.652 Presence of left artificial knee joint; Z98.1 Arthrodesis status; Z86.69 Personal history of other diseases of the nervous system and sense organs; Z97.8 Presence of other specified devices; Z98.42 Cataract extraction status, left eye; Z98.41 Cataract extraction status, right eye; Z88.8 Allergy status to other drugs, medicaments and biological substances; Z98.890 Other specified postprocedural states; Z80.1 Family history of malignant neoplasm of trachea, bronchus and lung
CPT/HCPCS: 36415; 36600; 71045; 71275; 80048; 80053; 82805; 83605; 83735; 83880; 84132; 84484; 85025; 85027; 85610; 85730; 87040; 87070; 87205; 93005; 94640; 94660; 96365; 96375; 99291

== ENCOUNTER 2018-11-30 17:17 | Inpatient (IN) | payer MEDICARE, BC ==
--- NOTE | 2018-11-30 17:44 | ED ---
General Adult HPI - General Chief complaint: Shortness of Breath Stated complaint: KANWAL Time Seen by Provider: 11/30/18 17:20 Source: EMS Mode of arrival: EMS Limitations: no limitations - History of Present Illness Initial comments: Dictation was produced using [employer] dictation software. please excuse any grammatical, word or spelling errors. Chief Complaint: 68-year-old male transferred via EMS from any [place] [facility] for shortness of breath and hypoxia. History of Present Illness: It is a 68-year-old male with multiple comorbidities. Patient was transferred here from the left testicle for hypoxia and dyspnea. Patient has a history of pneumonia, COPD and congestive heart failure. Patient has no pain complex at this time. He states that he feels otherwise at baseline. According to transfer documentation patient is hypoxic in the 80s despite supplemental oxygen. According EMS patient fell sleep without his BiPAP and will contact breath. Patient feels well at this time. The ROS documented in this emergency department record has been reviewed and confirmed by me. Those systems with pertinent positive or negative responses have been documented in the HPI. All other systems are other negative and/or noncontributory. PHYSICAL EXAM: General Impression: Alert and oriented x3, not in acute distress, pale HEENT: Normocephalic atraumatic, extra-ocular movements intact, pupils equal and reactive to light bilaterally, mucous membranes moist. Cardiovascular: Heart regular rate and rhythm, S1&S2 audible, no murmurs, rubs or gallops Chest: Bilateral lung rhonchi Abdomen: Bowel sounds present, abdomen soft, non-tender, non-distended, no organomegaly Musculoskeletal: Pulses present and equal in all extremities, no peripheral edema Motor: no focal deficits noted Neurological: CN II-XII grossly intact, no focal motor or sensory deficits noted Skin: Intact with no visualized rashes Psych: Normal affect and mood ED course: 68 yo male brought in for hypoxia. Signs upon arrival shows 80% on 8 L is a cannula. Patient tachypneic with a rate of 20, pulse vital signs within acceptable limits. Laboratory evaluation obtained. CBC shows no leukocytosis. CBC appears unremarkable. Coag panel unremarkable. Venous blood gas appears normal. Patient has mild troponin elevation of 0.047. He has a history of elevated troponin that has been documented since November 08. It appears to be lower than usual. Prematurity peptide slightly elevated however patient has a baseline elevation. Patient appears well at this time. Patient still however requiring higher levels of oxygen that his baseline. Click presentation consistent with hypoxic respiratory failure. Patient continued on breathing treatments. His also given Patient be admitted for hypoxic respiratory failure. Process Architect to be on consult. EKG interpretation: Ventricular rate 70, normal sinus rhythm, WA interval 184, care is 84, QTC 449. No WA prolongation, no QTC prolongation, no ST or T-wave changes noted. . Overall, this EKG is unremarkable - Related Data Home Medications Medication Instructions Recorded Confirmed Multivitamins, Thera [Multivitamin 1 tab PO DAILY 05/19/18 11/30/18 (formulary)] Naproxen 500 mg PO BID PRN 05/19/18 11/30/18 Tamsulosin HCl [Flomax] 0.4 mg PO HS 05/19/18 11/30/18 Apixaban [Eliquis] 5 mg PO BID 11/21/18 11/30/18 Aspirin 81 mg PO DAILY 11/21/18 11/30/18 Atorvastatin [Lipitor] 80 mg PO HS 11/21/18 11/30/18 Digoxin 250 mcg PO DAILY 11/21/18 11/30/18 Diltiazem HCl 90 mg PO Q6H 11/21/18 11/30/18 Esomeprazole Magnesium [NexIUM] 40 mg PO DAILY 11/21/18 11/30/18 Ipratropium-Albuterol Nebulize 3 ml INHALATION RT-QID PRN 11/21/18 11/30/18 [Duoneb 0.5 mg-3 mg/3 ml Soln] Metoprolol Tartrate [Lopressor] 100 mg PO Q6H 11/21/18 11/30/18 Potassium Chloride ER [K-Dur 20] 20 meq PO BID 11/21/18 11/30/18 Amoxic-Pot Clav 875-125Mg 1 tab PO BID@0800,199911/30/18 11/30/18 [Augmentin 875-125] Budesonide-Formot 160-4.5 Mcg 1 puff INHALATION RT-BID PRN 11/30/18 11/30/18 [Symbicort 160-4.5 Mcg Inhaler] Cyclobenzaprine [Flexeril] 10 mg PO Q8H PRN 11/30/18 11/30/18 Omeprazole 40 mg PO BID 11/30/18 11/30/18 Previous Rx's Medication Instructions Recorded Gabapentin [Neurontin] 400 mg PO QID #120 cap 11/27/18 HYDROcodone/APAP 10-325MG [[place] 1 tab PO Q6H PRN #30 tab 11/27/18 10-325] Allergies Allergy/AdvReac Type Severity Reaction Status Date / Time montelukast sodium Allergy Itching Verified 11/30/18 17:46 [From Woody] Review of Systems ROS Statement: Those systems with pertinent positive or pertinent negative responses have been documented in the HPI. ROS Other: All systems not noted in ROS Statement are negative. Past Medical History Past Medical History: Coronary Artery Disease (CAD), Chest Pain / Angina, COPD, CVA/TIA, Eye Disorder, GERD/Reflux, Hyperlipidemia, Hypertension, Osteoarthritis (OA), Prostate Disorder Additional Past Medical History / Comment(s): BPH, vertigo due to inner ear problem, states has 30% blockage in his heart, TIA, hiatal hernia, IBS, charline ateral tinnitis. History of Any Multi-Drug Resistant Organisms: None Reported Past Surgical History: Adenoidectomy, Back Surgery, Heart Catheterization, Hernia Repair, Joint Replacement, Orthopedic Surgery, Tonsillectomy Additional Past Surgical History / Comment(s): L knee replacement, back surgery x2-failed fusion and 2 rods in lower back, L/R cataract surgery, bilat. rib removal (cervical), carpal tunnel R wrist, colonoscopy, L elbow surgery, abdominal hernia repair, 3 R inguinal hernia repairs, L inguinal hernia repair, rectal cystectomy.pain pump(ms) implanted removed 11/06/2018 Past Anesthesia/Blood Transfusion Reactions: Previous Problems w/ Anesthesia Additional Past Anesthesia/Blood Transfusion Reaction / Comment(s): With first surgery became belligerent when waking up. Past Psychological History: No Psychological Hx Reported Smoking Status: Former smoker Past Alcohol Use History: None Reported Past Drug Use History: None Reported - Past Family History Mother Family Medical History: No Reported History Additional Family Medical History / Comment(s): Mother was healthy and lived to be 88 or 89yrs old. Father Family Medical History: Cancer Additional Family Medical History / Comment(s): Father of lung cancer in his early 70's. General Exam Limitations: no limitations Course Vital Signs 11/30/18 11/30/18 11/30/18 17:31 17:34 21:03 Temperature 98.5 F Pulse Rate 70 84 Respiratory 28 H 20 22 Rate Blood Pressure 153/85 124/87 O2 Sat by Pulse 88 L 94 L Oximetry Medical Decision Making - Lab Data Result diagrams: 11/30/18 17:30 11/30/18 20:10 Lab Results 11/30/18 11/30/18 11/30/18 Range/Units 17:30 17:30 17:30 WBC 10.8 H (3.8-10.6) k/uL RBC 3.92 L (4.30-5.90) m/uL Hgb 12.0 L (13.0-17.5) gm/dL Hct 37.8 L (39.0-53.0) % MCV 96.6 (80.0-100.0) fL MCH 30.7 (25.0-35.0) pg MCHC 31.8 (31.0-37.0) g/dL RDW 14.4 (11.5-15.5) % Plt Count 229 (150-450) k/uL Neutrophils % 81 % Lymphocytes % 13 % Monocytes % 3 % Eosinophils % 2 % Basophils % 0 % Neutrophils # 8.7 H (1.3-7.7) k/uL Lymphocytes # 1.5 (1.0-4.8) k/uL Monocytes # 0.3 (0-1.0) k/uL Eosinophils # 0.2 (0-0.7) k/uL Basophils # 0.0 (0-0.2) k/uL Hypochromasia Slight PT 10.1 (9.0-12.0) sec INR 0.9 (<1.2) APTT 21.6 L (22.0-30.0) sec VBG pH 7.35 (7.31-7.41) VBG pCO2 49 (37-51) mmHg VBG HCO3 26 (24-28) mmol/L Sodium (137-145) mmol/L Potassium (3.5-5.1) mmol/L Chloride (98-107) mmol/L Carbon Dioxide (22-30) mmol/L Anion Gap mmol/L BUN (9-20) mg/dL Creatinine (0.66-1.25) mg/dL Est GFR (CKD-EPI)AfAm (>60 ml/min/1.73 sqM) Est GFR (CKD-EPI)NonAf (>60 ml/min/1.73 sqM) Glucose (74-99) mg/dL Calcium (8.4-10.2) mg/dL Magnesium (1.6-2.3) mg/dL Total Bilirubin (0.2-1.3) mg/dL AST (17-59) U/L ALT (21-72) U/L Alkaline Phosphatase (38-126) U/L Troponin I (0.000-0.034) ng/mL NT-Pro-B Natriuret Pep pg/mL Total Protein (6.3-8.2) g/dL Albumin (3.5-5.0) g/dL 11/30/18 11/30/18 11/30/18 Range/Units 17:30 20:10 20:10 WBC (3.8-10.6) k/uL RBC (4.30-5.90) m/uL Hgb (13.0-17.5) gm/dL Hct (39.0-53.0) % MCV (80.0-100.0) fL MCH (25.0-35.0) pg MCHC (31.0-37.0) g/dL RDW (11.5-15.5) % Plt Count (150-450) k/uL Neutrophils % % Lymphocytes % % Monocytes % % Eosinophils % % Basophils % % Neutrophils # (1.3-7.7) k/uL Lymphocytes # (1.0-4.8) k/uL Monocytes # (0-1.0) k/uL Eosinophils # (0-0.7) k/uL Basophils # (0-0.2) k/uL Hypochromasia PT (9.0-12.0) sec INR (<1.2) APTT (22.0-30.0) sec VBG pH (7.31-7.41) VBG pCO2 (37-51) mmHg VBG HCO3 (24-28) mmol/L Sodium 142 (137-145) mmol/L Potassium 3.9 (3.5-5.1) mmol/L Chloride 111 H (98-107) mmol/L Carbon Dioxide 27 (22-30) mmol/L Anion Gap 4 mmol/L BUN 23 H (9-20) mg/dL Creatinine 0.78 (0.66-1.25) mg/dL Est GFR (CKD-EPI)AfAm >90 (>60 ml/min/1.73 sqM) Est GFR (CKD-EPI)NonAf >90 (>60 ml/min/1.73 sqM) Glucose 144 H (74-99) mg/dL Calcium 9.9 (8.4-10.2) mg/dL Magnesium 1.6 (1.6-2.3) mg/dL Total Bilirubin 0.5 (0.2-1.3) mg/dL AST 21 (17-59) U/L ALT 36 (21-72) U/L Alkaline Phosphatase 76 (38-126) U/L Troponin I 0.047 H* (0.000-0.034) ng/mL NT-Pro-B Natriuret Pep 1410 pg/mL Total Protein 5.6 L (6.3-8.2) g/dL Albumin 2.9 L (3.5-5.0) g/dL Disposition Clinical Impression: Acute respiratory failure with hypoxia Disposition: ADMITTED IP TO THIS HOSP Condition: Fair Is patient prescribed a controlled substance at d/c from ED?: No Referrals: Mekhi Jones MD [Primary Care Provider] - 1-2 days Decision Time: 21:15
[2018-11-30 18:54] LABS: Basophils % (A) 0 %; Eosinophils # (A) 0.2 k/uL (0-0.7); Eosinophils % (A) 2 %; HCT 37.8 % (39.0-53.0); Hypochromasia Slight; Lymphocytes # (A) 1.5 k/uL (1.0-4.8); Lymphocytes % (A) 13 %; MCH 30.7 pg (25.0-35.0); MCHC 31.8 g/dL (31.0-37.0); MCV 96.6 fL (80.0-100.0); Monocytes # (A) 0.3 k/uL (0-1.0); Monocytes % (A) 3 %; Neutrophils # (A) 8.7 k/uL (1.3-7.7); Neutrophils % (A) 81 %; Platelet Count 229 k/uL (150-450); RBC 3.92 m/uL (4.30-5.90); RDW 14.4 % (11.5-15.5); WBC 10.8 k/uL (3.8-10.6)
[2018-11-30 18:58] LABS: VBG PH 7.35 (7.31-7.41)
--- NOTE | 2018-11-30 19:06 | XR ---
EXAMINATION TYPE: XR chest 2V DATE OF EXAM: 11/30/2018 COMPARISON: Chest x-ray November 25, 2018. CTA chest 8 days ago. HISTORY: Shortness of breath today TECHNIQUE: Frontal and lateral views of the chest are obtained. FINDINGS: There is background chronic emphysematous change with increasing bilateral reticulonodular infiltrates most prominent in the mid to lower lungs. No pleural effusion or pneumothorax is seen bi laterally. The cardiac silhouette size remains upper limits of normal. The osseous structures are intact. IMPRESSION: Increasing bilateral reticulonodular infiltrates.
[2018-11-30 19:27] LABS: INR 0.9 (<1.2); Prothrombin Time 10.1 sec (9.0-12.0)
[2018-11-30 19:29] LABS: Partial Thromboplastin Time 21.6 sec (22.0-30.0)
[2018-11-30 20:34] LABS: ALT 36 U/L (21-72); AST 21 U/L (17-59); Albumin 2.9 g/dL (3.5-5.0); Alkaline Phosphatase 76 U/L (38-126); Anion Gap 4 mmol/L; Blood Urea Nitrogen 23 mg/dL (9-20); Calcium 9.9 mg/dL (8.4-10.2); Carbon Dioxide 27 mmol/L (22-30); Chloride 111 mmol/L (98-107); Glucose 144 mg/dL (74-99); Magnesium 1.6 mg/dL (1.6-2.3); Potassium 3.9 mmol/L (3.5-5.1); Sodium 142 mmol/L (137-145); Total Bilirubin 0.5 mg/dL (0.2-1.3); Total Protein 5.6 g/dL (6.3-8.2)
[2018-11-30] MEDS ORDERED: AZITHROMYCIN 500 MG in SODIUM CHLORIDE 0.9% 250 ML IVPB STA (20:39)
[2018-11-30] MEDS ORDERED: FUROSEMIDE 10 MG/ML 4 ML VIAL IV STA (20:39)
[2018-11-30] MEDS ORDERED: ACETAMINOPHEN TAB 325 MG TAB PO PRN (21:11)
[2018-11-30] MEDS ORDERED: NALOXONE 0.4 MG/ML 1 ML VIAL IV PRN (21:11)
[2018-11-30] MEDS ORDERED: IPRATROPIUM-ALBUTEROL 3 ML NEB INHALATION STA (21:14)
[2018-11-30] MEDS ORDERED: DEXAMETHASONE SOD PHOSPHATE 10 MG/ML 1 ML VIAL IV STA (21:14)
[2018-11-30] MEDS ORDERED: NAPROXEN 250 MG TAB PO PRN (23:19)
[2018-11-30] MEDS ORDERED: SYMBICORT 160-4.5 MCG INHALER INHALATION PRN (23:19)
[2018-11-30] MEDS ORDERED: CYCLOBENZAPRINE 10 MG TAB PO PRN (23:19)
--- NOTE | 2018-11-30 23:44 | P.HPIM ---
History of Present Illness H&P Date: 11/30/18 The patient is a 68-year-old male with a past medical history of chronic respiratory failure on a baseline of approximately 4 L nasal cannula, COPD, systolic congestive heart failure, paroxysmal A. fib on anticoagulation with eliquis, inflammatory arthritis chronic prednisone therapy, CAD, essential hypertension history of CVA/TIA who presents to the ER via EMS from [facility] with reports of worsening respiratory failure and hypoxia after the patient was noted to have diminished oxygen saturations on room air with SpO2 of approximately 78%. The patient reports some shortness of air since yesterday and a cough with wheezes, he denies chest pain or lower extremity swelling. Review of records indicates the patient was recently here and discharged 11/27/18 with acute on chronic respiratory failure with hypoxia secondary to LLL HCAP along with COPD As part of his workup he had a chest x-ray that showed increasing bilateral reticulonodular infiltrates, notable labs include a WBC count of 10.8 hemoglobin of 12g, Troponin of 0.047, EKG showed normal sinus rhythm without any suggestion of acute ischemia. Review of Systems Pertinent positives per HPI all other review of systems otherwise negative Past Medical History Past Medical History: Coronary Artery Disease (CAD), Chest Pain / Angina, COPD, CVA/TIA, Eye Disorder, GERD/Reflux, Hyperlipidemia, Hypertension, Osteoarthritis (OA), Prostate Disorder Additional Past Medical History / Comment(s): BPH, 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 History of Any Multi-Drug Resistant Organisms: None Reported Past Surgical History: Adenoidectomy, Back Surgery, Heart Catheterization, Hernia Repair, Joint Replacement, Orthopedic Surgery, Tonsillectomy Additional Past Surgical History / Comment(s): L knee replacement, back surgery x2-failed fusion and 2 rods in lower back, L/R cataract surgery, bilat. rib removal (cervical), carpal tunnel R wrist, colonoscopy, L elbow surgery, abdominal hernia repair, 3 R inguinal hernia repairs, L inguinal hernia repair, rectal cystectomy.pain pump(ms) implanted removed 11/06/2018 Past Anesthesia/Blood Transfusion Reactions: Previous Problems w/ Anesthesia Additional Past Anesthesia/Blood Transfusion Reaction / Comment(s): With first surgery became belligerent when waking up. Past Psychological History: No Psychological Hx Reported Smoking Status: Former smoker Past Alcohol Use History: None Reported Past Drug Use History: None Reported - Past Family History Mother Family Medical History: No Reported History Additional Family Medical History / Comment(s): Mother was healthy and lived to be 88 or 89yrs old. Father Family Medical History: Cancer Additional Family Medical History / Comment(s): Father of lung cancer in his early 70's. Medications and Allergies Home Medications Medication Instructions Recorded Confirmed Type Multivitamins, Thera [Multivitamin 1 tab PO DAILY 05/19/18 11/30/18 History (formulary)] Naproxen 500 mg PO BID PRN 05/19/18 11/30/18 History Tamsulosin HCl [Flomax] 0.4 mg PO HS 05/19/18 11/30/18 History Apixaban [Eliquis] 5 mg PO BID 11/21/18 11/30/18 History Aspirin 81 mg PO DAILY 11/21/18 11/30/18 History Atorvastatin [Lipitor] 80 mg PO HS 11/21/18 11/30/18 History Digoxin 250 mcg PO DAILY 11/21/18 11/30/18 History Diltiazem HCl 90 mg PO Q6H 11/21/18 11/30/18 History Esomeprazole Magnesium [NexIUM] 40 mg PO DAILY 11/21/18 11/30/18 History Ipratropium-Albuterol Nebulize 3 ml INHALATION RT-QID PRN 11/21/18 11/30/18 History [Duoneb 0.5 mg-3 mg/3 ml Soln] Metoprolol Tartrate [Lopressor] 100 mg PO Q6H 11/21/18 11/30/18 History Potassium Chloride ER [K-Dur 20] 20 meq PO BID 11/21/18 11/30/18 History Gabapentin [Neurontin] 400 mg PO QID #120 cap 11/27/18 11/30/18 Rx HYDROcodone/APAP 10-325MG [[place] 1 tab PO Q6H PRN #30 tab 11/27/18 11/30/18 Rx 10-325] Amoxic-Pot Clav 875-125Mg 1 tab PO BID@0800,2000 11/30/18 11/30/18 History [Augmentin 875-125] Budesonide-Formot 160-4.5 Mcg 1 puff INHALATION RT-BID PRN 11/30/18 11/30/18 History [Symbicort 160-4.5 Mcg Inhaler] Cyclobenzaprine [Flexeril] 10 mg PO Q8H PRN 11/30/18 11/30/18 History Omeprazole 40 mg PO BID 11/30/18 11/30/18 History predniSONE 20 mg PO DAILY 11/30/18 11/30/18 History Allergies Allergy/AdvReac Type Severity Reaction Status Date / Time montelukast sodium Allergy Itching Verified 11/30/18 17:46 [From Singulair] Physical Exam Vitals: Vital Signs Temp Pulse Resp BP Pulse Ox 11/30/18 22:00 98.4 F 80 20 138/70 97 11/30/18 21:51 98.7 F 97 20 143/85 97 11/30/18 21:03 84 22 124/87 94 L 11/30/18 17:34 20 11/30/18 17:31 98.5 F 70 28 H 153/85 88 L Intake and Output 11/30/18 11/30/18 12/01/18 14:59 22:59 06:59 Other: Weight 122.924 kg Constitutional: No acute distress, conversant, pleasant Eyes: Anicteric sclerae, moist conjunctiva, no lid-lag, PERRLA ENMT: NC/AT,Oropharynx clear, no erythema, exudates Neck:Supple, FROM, no masses, or JVD, No carotid bruits; No thyromegaly Lungs: Diminished in the bases, poor aeration, respirations unlabored, 95% on 8 L nasal cannula, no wheezes Cardiovascular: Heart regular in rate and rhythm, No murmurs, gallops, or rubs no peripheral edema Abdominal: Soft Nontender, nom distended, no guarding, no rebound or rigidity, Normoactive bowel sounds No hepatomegaly, No splenomegaly, No palpable mass No abdominal wall hernia noted Skin: Normal temperature, tone, texture, turgor, No induration No subcutaneous nodules, No rash, lesions, No ulcers Extremities:No digital cyanosis No clubbing, Pedal pulses intact and symmetrical Radial pulses intact and symmetrical Normal gait and station, No calf tenderness Psychiatric: Alert and oriented to person, place and time, Appropriate affect Intact judgement Neuro: Muscles Strength 5/5 in all 4 extremities, Sensation to light touch grossly present throughout, Cranial nerves II-XII grossly intact. No focal sensory deficits Results CBC & Chem 7: 11/30/18 17:30 11/30/18 20:10 Labs: Abnormal Lab Results - Last 24 Hours (Table) 11/30/18 11/30/18 11/30/18 Range/Units 17:30 17:30 20:10 WBC 10.8 H (3.8-10.6) k/uL RBC 3.92 L (4.30-5.90) m/uL Hgb 12.0 L (13.0-17.5) gm/dL Hct 37.8 L (39.0-53.0) % Neutrophils # 8.7 H (1.3-7.7) k/uL APTT 21.6 L (22.0-30.0) sec Chloride 111 H (98-107) mmol/L BUN 23 H (9-20) mg/dL Glucose 144 H (74-99) mg/dL Troponin I (0.000-0.034) ng/mL Total Protein 5.6 L (6.3-8.2) g/dL Albumin 2.9 L (3.5-5.0) g/dL 11/30/18 Range/Units 20:10 WBC (3.8-10.6) k/uL RBC (4.30-5.90) m/uL Hgb (13.0-17.5) gm/dL Hct (39.0-53.0) % Neutrophils # (1.3-7.7) k/uL APTT (22.0-30.0) sec Chloride (98-107) mmol/L BUN (9-20) mg/dL Glucose (74-99) mg/dL Troponin I 0.047 H* (0.000-0.034) ng/mL Total Protein (6.3-8.2) g/dL Albumin (3.5-5.0) g/dL Thrombosis Risk Factor Assmnt - Choose All That Apply Any of the Below Risk Factors Present?: Yes Each Factor Represents 1 point: Abnormal pulmonary function (COPD), Obesity (BMI >25) Other Risk Factors: Yes Each Risk Factor Represents 2 Points: Age 61-74 years Other congenital or acquired thrombophilia - If yes, enter type in comment: No Thrombosis Risk Factor Assessment Total Risk Factor Score: 4 Thrombosis Risk Factor Assessment Level: Moderate Risk Assessment and Plan (1) Acute and chronic respiratory failure with hypoxia Current Visit: No Status: Acute Code(s): J96.21 - ACUTE AND CHRONIC RESPIRATORY FAILURE WITH HYPOXIA SNOMED Code(s): 25467919 (2) Acute exacerbation of chronic obstructive airways disease Current Visit: No Status: Acute Code(s): J44.1 - CHRONIC OBSTRUCTIVE PULMON LIZ DISEASE W (ACUTE) EXACERBATION SNOMED Code(s): 260704137 (3) Pneumonia Current Visit: No Status: Acute Code(s): J18.9 - PNEUMONIA, UNSPECIFIED ORGANISM SNOMED Code(s): 610802188 (4) Congestive heart failure Current Visit: No Status: Chronic Code(s): I50.9 - HEART FAILURE, UNSPECIFIED SNOMED Code(s): 01453509 (5) Elevated troponin Current Visit: No Status: Acute Code(s): R74.8 - ABNORMAL LEVELS OF OTHER SERUM ENZYMES SNOMED Code(s): 063206291 (6) Atrial fibrillation with RVR Current Visit: No Status: Chronic Code(s): I48.91 - UNSPECIFIED ATRIAL FIBRILLATION SNOMED Code(s): 771922047314191 Plan: The patient is admitted anticipate a greater than 2 midnight stay with acute on chronic respiratory failure secondary to relapse of his acute COPD exacerbation, patient recently discharged and has failed outpatient therapy for pneumonia. Cu rrently on 8L via nasal cannula, will wean as tolerated to keep sats between 90- 92% initiated when necessary and scheduled DuoNeb bronchodilator breathing treatments, continue systemic steroids patient did receive a loading dose of Decadron in the ER, initiate performistJennifer plan to consult pulmonology for further recommendations, continue antibiotic regimen with Levaquin and Augmentin. noted mild elevated troponin due to demad ischemia from hypoxia Continue to follow his clinical course. DVT and GI prophylaxis with SCDs and Protonix respectively CODE STATUS: Full code Discussed Care with the patient and Anticipate discharge 2 to 3 days
[2018-11-30] MEDS: DILTIAZEM ORAL 30 MG TAB PO SCH (23:48)
[2018-11-30] MEDS: METOPROLOL TARTRATE 50 MG TAB PO SCH (23:48)
[2018-11-30] MEDS: SODIUM CHLORIDE 0.9% 1,000 ML IV SCH (23:50)
[2018-12-01] MEDS: HYDROcodone/APAP 10-325MG 1 EACH TAB PO PRN ×4 (04:17→23:02)
[2018-12-01] MEDS: METOPROLOL TARTRATE 50 MG TAB PO SCH ×4 (06:36→23:02)
[2018-12-01] MEDS: DILTIAZEM ORAL 30 MG TAB PO SCH ×4 (06:36→23:02)
[2018-12-01] MEDS ORDERED: IPRATROPIUM-ALBUTEROL 3 ML NEB INHALATION PRN (07:27)
[2018-12-01] MEDS: PANTOPRAZOLE 40 MG TABLET PO SCH (08:04)
[2018-12-01] MEDS: LEVOFLOXACIN 750 MG TAB PO SCH (08:04)
[2018-12-01] MEDS: ASPIRIN 81 MG PO SCH (08:04)
[2018-12-01] MEDS: DIGOXIN 250 MCG TAB PO SCH (08:04)
[2018-12-01] MEDS: guaiFENesin 600 MG TABLET.ER PO SCH ×2 (08:04→20:42)
[2018-12-01] MEDS: MULTIVITAMINS, THERA 1 EACH TAB PO SCH (08:04)
[2018-12-01] MEDS: APIXABAN 5 MG TAB PO SCH ×2 (08:04→20:42)
[2018-12-01] MEDS: POTASSIUM CHLORIDE ER 20 MEQ TAB.ER PO SCH ×2 (08:05→20:42)
[2018-12-01] MEDS: GABAPENTIN 400 MG CAP PO SCH ×4 (08:05→20:42)
[2018-12-01] MEDS: AMOXIC-POT CLAV 875-125MG 1 EACH TAB PO SCH ×2 (08:05→20:42)
[2018-12-01] MEDS: methylPREDNISolone SOD SUCCI 125 MG/2 ML VIAL IV SCH ×4 (08:10→23:03)
[2018-12-01] MEDS ORDERED: predniSONE 20 MG TAB PO SCH (09:00)
[2018-12-01] MEDS ORDERED: NON-FORMULARY DRUG (Omeprazole [Omeprazole] 40 MG) PO SCH (09:00)
[2018-12-01] MEDS ORDERED: PANTOPRAZOLE 40 MG/10 ML VIAL IV SCH (09:00)
[2018-12-01] MEDS: IPRATROPIUM-ALBUTEROL 3 ML NEB INHALATION SCH ×4 (10:10→19:31)
[2018-12-01] MEDS: FORMOTEROL FUMARATE 20 MCG/2 ML NEBU INHALATION SCH ×2 (10:10→19:31)
[2018-12-01 10:37] VITALS: BMI 39.6
--- NOTE | 2018-12-01 10:55 | P.PN ---
Subjective Progress Note Date: 12/01/18 The patient is a 68-year-old male with a PMH of chronic hypoxic respiratory failure on home O2, COPD, systolic CHF, A. fib on Eliquis, coronary artery disease, hypertension, history of CVA, recently discharged from [facility] presented to the ED from [facility] for hypoxia. The pt was disc harged to [facility] on 11/27/18 after a 7 day hospital course for hypoxia and HCAP. The patient notes that he was continued on 4 L NC at [facility] and notes compliance with his bronchodilator nebulizers. The patient had an extensive evaluation in the ED with chest x-ray showing increased bilateral reticular nodular infiltrates with SpO2 88% on 8 L nasal cannula. The patient was subsequently admitted to the medicine service with pulmonary consult and further management. He was seen and examined at the bedside on 12/01/18. He notes that his SOB has resolved and that he feels well. He is denying chest pain, cough, fever, or chills. Further denied nausea, vomiting, or abd pain. Objective - Vital Signs Vital signs: Vital Signs Temp 98.4 F 12/01/18 07:59 Pulse 65 12/01/18 07:59 Resp 18 12/01/18 07:59 BP 124/58 12/01/18 07:59 Pulse Ox 96 12/01/18 07:59 Intake & Output 11/30/18 12/01/18 12/01/18 18:59 06:59 18:59 Intake Total 150 Output Total 260 Balance -110 Weight 122.924 kg 125.3 kg Intake: Oral 150 Output: Urine 260 Other: # Voids 1 1 # Bowel Movements 1 1 - Exam General: Non-toxic, in no acute distress, appears stated age, obese HEENT: NC/AT, anicteric sclerae, moist conjunctiva, no lid-lag, PERRLA Cardiovascular: S1/S2 wnl, no murmurs, rubs, or gallops Lungs: Decreased air entry bilaterally, no rales or rhonchi appreciated, normal respiratory effort, no accessory muscle use Abdominal: Soft, non-tender, non-distended, no guarding, rebound, or rigidity Skin: Warm, dry Extremities: No edema or contractures Psychiatric: Alert and oriented to person, place and time, appropriate affect Neuro: CN II-XII grossly intact, Strength 5/5 in all 4 extremities, Speech intact, Sensation to light touch grossly intact throughout - Labs CBC & Chem 7: 11/30/18 17:30 11/30/18 20:10 Labs: Abnormal Lab Results - Last 24 Hours (Table) 11/30/18 11/30/18 11/30/18 Range/Units 17:30 17:30 20:10 WBC 10.8 H (3.8-10.6) k/uL RBC 3.92 L (4.30-5.90) m/uL Hgb 12.0 L (13.0-17.5) gm/dL Hct 37.8 L (39.0-53.0) % Neutrophils # 8.7 H (1.3-7.7) k/uL APTT 21.6 L (22.0-30.0) sec Chloride 111 H (98-107) mmol/L BUN 23 H (9-20) mg/dL Glucose 144 H (74-99) mg/dL Troponin I (0.000-0.034) ng/mL Total Protein 5.6 L (6.3-8.2) g/dL Albumin 2.9 L (3.5-5.0) g/dL 11/30/18 Range/Units 20:10 WBC (3.8-10.6) k/uL RBC (4.30-5.90) m/uL Hgb (13.0-17.5) gm/dL Hct (39.0-53.0) % Neutrophils # (1.3-7.7) k/uL APTT (22.0-30.0) sec Chloride (98-107) mmol/L BUN (9-20) mg/dL Glucose (74-99) mg/dL Troponin I 0.047 H* (0.000-0.034) ng/mL Total Protein (6.3-8.2) g/dL Albumin (3.5-5.0) g/dL Assessment and Plan Plan: Acute on chronic hypoxic respiratory failure, secondary to acute COPD exacerbation -C/w supplemental oxygen -C/w Solumedrol 60 mg q6h, Duonebs -Pulmonary consulted, awaiting recs Pneumonia -C/w Levaquin and Augmentin Paroxysmal Afib -C/w Eliquis, Cardizem HTN, HLD -Resume home meds DVT proph -Antioneis
--- NOTE | 2018-12-01 13:18 | P.CNPUL ---
History of Present Illness Consult date: 12/01/18 Requesting physician: Braydon Arenas Reason for consult: hypoxemia Chief complaint: Shortness of breath, low O2 saturations History of present illness: This is a very pleasant 68-year-old gentleman follows Dr. Suazo as his primary care physician. He has a history of coronary artery disease, CVA/TIA, GERD, hypertension, hyperlipidemia, Ana Laura arthritis, benign prostatic hypertrophy, irritable bowel syndrome. Has has a history of Gold stage III chronic obstructive pulmonary disease and follows with Dr. Bravo in our office for the same. He is a 54 year history of smoking 2-3 packs per day however quit in May 2018. He's been maintained on DuoNeb inhalations and Symbicort in the outpatient setting. He also is known to have a left upper lobe lung nodule measuring 1 cm. PET scan revealed no suspicious hypermetabolic uptake. This is being followed in the outpatient setting. Was recently discharged from here on 11/27/2018 following an episode of acute on chronic hypoxemic respiratory failure secondary to an acute left lower lobe infiltrate, suspect healthcare acquired pneumonia. Sputum cultures on that admission revealed Linda only. He does have a previous history of Serratia marcescens. He was brought back here from the extended care facility after having episodes of hypoxemia in the 80s. The patient is seen today in consultation on the selective care unit. He is c urrently awake and alert in no acute distress. He is somewhat unclear as to why he was brought back to the hospital. Chest x-ray revealed bilateral reticular nodule infiltrates, improved compared to previous. There is changes of chronic emphysema. No new labs today. He's been initiated and DuoNeb inhalations, Augmentin, Levaquin and IV Solu-Medrol. He is anticoagulated with Eliquis. Review of Systems Constitutional: Denies lethargy, denies malaise, Reports weakness, Denies chills, Denies fever Eyes: denies blurred vision, denies pain Ears, nose, mouth and throat: Denies headache, Denies sore throat Cardiovascular: Denies chest pain, Denies shortness of breath Respiratory: Reports congestion, Reports cough with sputum, Reports dyspnea, Reports hemoptysis, Reports home oxygen, Reports respiratory infections, Denies cough Gastrointestinal: Denies abdominal pain, Denies diarrhea, Denies nausea, Denies vomiting Musculoskeletal: Denies myalgias Integumentary: Denies pruritus, Denies rash Neurological: Reports change in mentation, Denies numbness, Denies weakness Psychiatric: Denies anxiety, Denies depression Endocrine: Denies fatigue, Denies weight change Past Medical History Past Medical History: Coronary Artery Disease (CAD), Chest Pain / Angina, COPD, CVA/TIA, Eye Disorder, GERD/Reflux, Hyperlipidemia, Hypertension, Osteoarthritis (OA), Prostate Disorder Additional Past Medical History / Comment(s): BPH, 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 History of Any Multi-Drug Resistant Organisms: None Reported Past Surgical History: Adenoidectomy, Back Surgery, Heart Catheterization, Hernia Repair, Joint Replacement, Orthopedic Surgery, Tonsillectomy Additional Past Surgical History / Comment(s): L knee replacement, back surgery x2-failed fusion and 2 rods in lower back, L/R cataract surgery, bilat. rib removal (cervical), carpal tunnel R wrist, colonoscopy, L elbow surgery, abdominal hernia repair, 3 R inguinal hernia repairs, L inguinal hernia repair, rectal cystectomy.pain pump(ms) implanted removed 11/06/2018 Past Anesthesia/Blood Transfusion Reactions: Previous Problems w/ Anesthesia Additional Past Anesthesia/Blood Transfusion Reaction / Comment(s): With first surgery became belligerent when waking up. Past Psychological History: No Psychological Hx Reported Smoking Status: Former smoker Past Alcohol Use History: None Reported Past Drug Use History: None Reported - Past Family History Mother Family Medical History: No Reported History Additional Family Medical History / Comment(s): Mother was healthy and lived to be 88 or 89yrs old. Father Family Medical History: Cancer Additional Family Medical History / Comment(s): Father of lung cancer in his early 70's. Medications and Allergies Home Medications Medication Instructions Recorded Confirmed Type Multivitamins, Thera [Multivitamin 1 tab PO DAILY 05/19/18 11/30/18 History (formulary)] Naproxen 500 mg PO BID PRN 05/19/18 11/30/18 History Tamsulosin HCl [Flomax] 0.4 mg PO HS 05/19/18 11/30/18 History Apixaban [Eliquis] 5 mg PO BID 11/21/18 11/30/18 History Aspirin 81 mg PO DAILY 11/21/18 11/30/18 History Atorvastatin [Lipitor] 80 mg PO HS 11/21/18 11/30/18 History Digoxin 250 mcg PO DAILY 11/21/18 11/30/18 History Diltiazem HCl 90 mg PO Q6H 11/21/18 11/30/18 History Esomeprazole Magnesium [NexIUM] 40 mg PO DAILY 11/21/18 11/30/18 History Ipratropium-Albuterol Nebulize 3 ml INHALATION RT-QID PRN 11/21/18 11/30/18 History [Duoneb 0.5 mg-3 mg/3 ml Soln] Metoprolol Tartrate [Lopressor] 100 mg PO Q6H 11/21/18 11/30/18 History Potassium Chloride ER [K-Dur 20] 20 meq PO BID 11/21/18 11/30/18 History Gabapentin [Neurontin] 400 mg PO QID #120 cap 11/27/18 11/30/18 Rx HYDROcodone/APAP 10-325MG [Hamel 1 tab PO Q6H PRN #30 tab 11/27/18 11/30/18 Rx 10-325] Amoxic-Pot Clav 875-125Mg 1 tab PO BID@0800,2000 11/30/18 11/30/18 History [Augmentin 875-125] Budesonide-Formot 160-4.5 Mcg 1 puff INHALATION RT-BID PRN 11/30/18 11/30/18 History [Symbicort 160-4.5 Mcg Inhaler] Cyclobenzaprine [Flexeril] 10 mg PO Q8H PRN 11/30/18 11/30/18 History Omeprazole 40 mg PO BID 11/30/18 11/30/18 History predniSONE 20 mg PO DAILY 11/30/18 11/30/18 History Allergies Allergy/AdvReac Type Severity Reaction Status Date / Time montelukast sodium Allergy Itching Verified 11/30/18 17:46 [From Singulair] Physical Exam Vitals: Vital Signs Temp Pulse Pulse Resp BP BP Pulse Ox 12/01/18 11:56 98.6 F 79 18 128/51 95 12/01/18 10:34 76 12/01/18 10:24 76 12/01/18 10:11 72 04/30/19 07:59 98.4 F 65 18 124/58 96 12/01/18 04:00 97 F L 83 22 141/67 96 12/01/18 00:00 98 F 91 20 108/54 93 L 11/30/18 23:48 94 11/30/18 23:43 92 L 11/30/18 23:41 89 11/30/18 22:00 98.4 F 80 20 138/70 97 11/30/18 21:51 98.7 F 97 20 143/85 97 11/30/18 21:03 84 22 124/87 94 L 11/30/18 17:34 20 11/30/18 17:31 98.5 F 70 28 H 153/85 88 L Intake and Output 11/30/18 12/01/18 12/01/18 22:59 06:59 14:59 Intake Total 150 Output Total 260 Balance -110 Intake: Oral 150 Output: Urine 260 Other: # Voids 1 1 # Bowel Movements 1 1 Weight 122.924 kg 125.3 kg 125.3 kg GENERAL EXAM: Alert, pleasant, 68-year-old male patient, the 5 L high flow nasal cannula with a pulse ox of 95%, comfortable in no apparent distress. HEAD: Normocephalic/atraumatic. EYES: Normal reaction of pupils, equal size. Conjunctiva pink, sclera white. NOSE: Clear with pink turbinates. THROAT: No erythema or exudates. NECK: No masses, no JVD, no thyroid enlargement, no adenopathy. CHEST: No chest wall deformity. Symmetrical expansion. LUNGS: Diminished breath sounds, with the expiratory wheezes and rhonchi at the bases, more so on the left CVS: Regular rate and rhythm, normal S1 and S2, no gallops, no murmurs, no rubs ABDOMEN: Soft, nontender. No hepatosplenomegaly, normal bowel sounds, no guarding or rigidity. EXTREMITIES: No clubbing, no edema, no cyanosis, 2+ pulses and upper and lower extremities. MUSCULOSKELETAL: Muscle strength and tone normal. SPINE: No scoliosis or deformity SKIN: No rashes CENTRAL NERVOUS SYSTEM: No focal deficits, tone is normal in all 4 extremities. PSYCHIATRIC: Alert and oriented -3. Appropriate affect. Intact judgment and insight. Results - Laboratory Findings CBC and BMP: 11/30/18 17:30 04/29/19 20:10 PT/INR, D-dimer PT 10.1 sec (9.0-12.0) 11/30/18 17:30 INR 0.9 (<1.2) 11/30/18 17:30 Abnormal lab findings: Abnormal Labs 11/30/18 11/30/18 11/30/18 17:30 17:30 20:10 WBC 10.8 H RBC 3.92 L Hgb 12.0 L Hct 37.8 L Neutrophils # 8.7 H APTT 21.6 L Chloride 111 H BUN 23 H Glucose 144 H Troponin I Total Protein 5.6 L Albumin 2.9 L 11/30/18 20:10 WBC RBC Hgb Hct Neutrophils # APTT Chloride BUN Glucose Troponin I 0.047 H* Total Protein Albumin - Diagnostic Findings Chest x-ray: image reviewed Assessment and Plan Assessment: Impression: #1 Acute on chronic hypoxemic respiratory failure compared to an acute exacerbation of chronic obstructive pulmonary disease. #2 Paroxysmal atrial fibrillation, anticoagulated with Eliquis. #3 COPD, on home oxygen at bedtime, patient has an underlying FEV1 1.59 L or 48% of predicted, stage III COPD #4 History of CVA/TIA #5 Coronary artery disease #6 Solitary lung nodule in the left upper lobe, measuring 1 cm, the PET scan was completed and there was no suspicious uptake. This is being followed with the CT chest every 6 months #7 Hypertension, hyperlipidemia #8 Osteoarthritis #9 Benign prostatic hypertrophy #10 Irritable bowel syndrome #11 History of 53 years of smoking, of 2-3 packs per day, patient quit smoking in May 2018 #12 GERD/reflux Plan: The patient was seen and evaluated by Dr. Santiago. Chest x-ray and labs were reviewed. Patient does have a mild exacerbation of his COPD. Improved. We'll continue the current treatment plan including DuoNeb inhalations, Pulmicort and Perforomist inhalations, IV Solu-Medrol. He is currently on antibiotics in the form of Levaquin and Augmentin. Titrate down his FiO2 to 4 L which is his outpa tient level. We will continue to follow make further recommendations based on his clinical status. Possible discharge in the a.m. I, the cosigning physician, performed a history & physical examination of the patient. Lungs sounds with faint end expiratory wheeze, few scattered rhonchi. Maintaining good O2 saturations in the 90s on 5 L high flow nasal cannula. I discussed the assessment and plan of care with my nurse practitioner, Radha Valenzuela. I attest to the above note as dictated by her. Time with Patient: Greater than 30
[2018-12-01] MEDS: FLUTICASONE 50MCG/SPRAY NASAL 16GM EA NOSTRIL SCH (19:22)
[2018-12-01] MEDS: TAMSULOSIN 0.4 MG CAP.ER.24H PO SCH (20:42)
[2018-12-01] MEDS: ATORVASTATIN 80 MG TAB PO SCH (20:42)
[2018-12-01 20:58] LABS: Glucose,Whole Blood 231 mg/dL (75-99)
[2018-12-01] MEDS: SODIUM CHLORIDE 0.9% 1,000 ML IV SCH (22:04)
[2018-12-01] MEDS: INSULIN ASPART (NovoLOG) 100 UNIT/ML VIAL SQ SCH (22:04)
[2018-12-02] MEDS: IPRATROPIUM-ALBUTEROL 3 ML NEB INHALATION SCH ×6 (00:29→19:54)
[2018-12-02 06:22] LABS: Glucose,Whole Blood 194 mg/dL (75-99)
[2018-12-02] MEDS: methylPREDNISolone SOD SUCCI 125 MG/2 ML VIAL IV SCH ×4 (06:27→23:40)
[2018-12-02] MEDS: INSULIN ASPART (NovoLOG) 100 UNIT/ML VIAL SQ SCH ×4 (06:27→21:41)
[2018-12-02] MEDS: METOPROLOL TARTRATE 50 MG TAB PO SCH ×4 (06:27→23:40)
[2018-12-02] MEDS: DILTIAZEM ORAL 30 MG TAB PO SCH ×4 (06:27→23:41)
[2018-12-02] MEDS: HYDROcodone/APAP 10-325MG 1 EACH TAB PO PRN ×3 (06:28→18:04)
[2018-12-02 07:07] LABS: HCT 34.8 % (39.0-53.0); HGB 10.9 gm/dL (13.0-17.5); Hypochromasia Slight; MCH 30.1 pg (25.0-35.0); MCHC 31.2 g/dL (31.0-37.0); MCV 96.5 fL (80.0-100.0); Mean Platelet Volume 7.5; Platelet Count 222 k/uL (150-450); RBC 3.61 m/uL (4.30-5.90); RDW 14.5 % (11.5-15.5); WBC 10.7 k/uL (3.8-10.6)
[2018-12-02 07:14] LABS: Anion Gap 8 mmol/L; Blood Urea Nitrogen 23 mg/dL (9-20); Calcium 9.9 mg/dL (8.4-10.2); Carbon Dioxide 28 mmol/L (22-30); Chloride 104 mmol/L (98-107); Glucose 165 mg/dL (74-99); Sodium 140 mmol/L (137-145)
[2018-12-02] MEDS: FORMOTEROL FUMARATE 20 MCG/2 ML NEBU INHALATION SCH ×2 (08:14→19:54)
[2018-12-02] MEDS: MULTIVITAMINS, THERA 1 EACH TAB PO SCH (08:47)
[2018-12-02] MEDS: ASPIRIN 81 MG PO SCH (08:47)
[2018-12-02] MEDS: AMOXIC-POT CLAV 875-125MG 1 EACH TAB PO SCH ×2 (08:47→20:41)
[2018-12-02] MEDS: DIGOXIN 250 MCG TAB PO SCH (08:48)
[2018-12-02] MEDS: APIXABAN 5 MG TAB PO SCH ×2 (08:48→20:41)
[2018-12-02] MEDS: guaiFENesin 600 MG TABLET.ER PO SCH ×2 (08:48→20:40)
[2018-12-02] MEDS: LEVOFLOXACIN 750 MG TAB PO SCH (08:48)
[2018-12-02] MEDS: FLUTICASONE 50MCG/SPRAY NASAL 16GM EA NOSTRIL SCH (08:48)
[2018-12-02] MEDS: GABAPENTIN 400 MG CAP PO SCH ×4 (08:48→20:41)
[2018-12-02 12:07] LABS: Glucose,Whole Blood 177 mg/dL (75-99)
[2018-12-02] MEDS: POTASSIUM CHLORIDE ER 20 MEQ TAB.ER PO SCH ×2 (12:15→20:41)
[2018-12-02] MEDS: PANTOPRAZOLE 40 MG TABLET PO SCH (12:16)
[2018-12-02 17:11] LABS: Glucose,Whole Blood 165 mg/dL (75-99)
--- NOTE | 2018-12-02 17:54 | P.PN ---
Subjective Progress Note Date: 12/02/18 This is a very pleasant 68-year-old gentleman follows Dr. Suazo as his primary care physician. He has a history of coronary artery disease, CVA/TIA, GERD, hypertension, hyperlipidemia, Ana Laura arthritis, benign prostatic hypertrophy, irritable bowel syndrome. Has has a history of Gold stage III chronic obstructive pulmonary disease and follows with Dr. Bravo in our office for the same. He is a 54 year history of smoking 2-3 packs per day however quit in May 2018. He's been maintained on DuoNeb inhalations and Symbicort in the outpatient setting. He also is known to have a left upper lobe lung nodule measuring 1 cm. PET scan revealed no suspicious hypermetabolic uptake. This is being followed in the outpatient setting. Was recently discharged from here on 11/27/2018 following an episode of acute on chronic hypoxemic respiratory failure secondary to an acute left lower lobe infiltrate, suspect healthcare acquired pneumonia. Sputum cultures on that admission revealed Linda only. He does have a previous history of Serratia marcescens. He was brought back here from the [facility] care facility after having episodes of hypoxemia in the 80s. The patient is seen today in consultation on the selective care unit. He is currently awake and alert in no acute distress. He is somewhat unclear as to why he was brought back to the hospital. Chest x-ray revealed bilateral reticular nodule infiltrates, improved compared to previous. There is changes of chronic emphysema. No new labs today. He's been initiated and DuoNeb inhalations, Augmentin, Levaquin and IV Solu-Medrol. He is anticoagulated with Eliquis. On today's evaluation the patient is being seen in follow-up on 12/02/2018. Clinically the patient is improving compared to yesterday. Remains on oral Augmentin. He remains on IV Solu Medrol 60 mg every 6 hours. No new complaints. No nausea vomiting or chest pain. No other significant events overnight. Hemoglobin is stable at 10.9. White cell count is not elevated. Objective - Vital Signs Vital signs: Vital Signs Temp 97.6 F 12/02/18 12:00 Pulse 77 12/02/18 16:11 Resp 18 12/02/18 16:11 BP 152/66 12/02/18 12:00 Pulse Ox 98 12/02/18 15:58 Intake & Output 12/01/18 12/02/18 12/02/18 18:59 06:59 18:59 Intake Total 870 840 Output Total 260 1000 800 Balance 610 -1000 40 Weight 125.3 kg 97.5 kg Intake: Oral 870 840 Output: Urine 260 1000 800 Other: # Voids 1 2 # Bowel Movements 1 1 - Exam GENERAL EXAM: Alert, pleasant, 68-year-old male patient, the 5 L high flow nasal cannula with a pulse ox of 95%, comfortable in no apparent distress. HEAD: Normocephalic/atraumatic. EYES: Normal reaction of pupils, equal size. Conjunctiva pink, sclera white. NOSE: Clear with pink turbinates. THROAT: No erythema or exudates. NECK: No masses, no JVD, no thyroid enlargement, no adenopathy. CHEST: No chest wall deformity. Symmetrical expansion. LUNGS: Diminished breath sounds, with the expiratory wheezes and rhonchi at the bases, more so on the left CVS: Regular rate and rhythm, normal S1 and S2, no gallops, no murmurs, no rubs ABDOMEN: Soft, nontender. No hepatosplenomegaly, normal bowel sounds, no guarding or rigidity. EXTREMITIES: No clubbing, no edema, no cyanosis, 2+ pulses and upper and lower extremities. MUSCULOSKELETAL: Muscle strength and tone normal. SPINE: No scoliosis or deformity SKIN: No rashes CENTRAL NERVOUS SYSTEM: No focal deficits, tone is normal in all 4 extremities. PSYCHIATRIC: Alert and oriented -3. Appropriate affect. Intact judgment and insight. - Labs CBC & Chem 7: 12/02/18 06:33 12/02/18 06:33 Labs: Abnormal Lab Results - Last 24 Hours (Table) 12/01/18 12/02/18 12/02/18 Range/Units 20:57 06:21 06:33 WBC 10.7 H (3.8-10.6) k/uL RBC 3.61 L (4.30-5.90) m/uL Hgb 10.9 L (13.0-17.5) gm/dL Hct 34.8 L (39.0-53.0) % BUN (9-20) mg/dL Glucose (74-99) mg/dL POC Glucose (mg/dL) 231 H 194 H (75-99) mg/dL 05/08/2212/02/18 12/02/18 Range/Units 06:33 12:05 17:09 WBC (3.8-10.6) k/uL RBC (4.30-5.90) m/uL Hgb (13.0-17.5) gm/dL Hct (39.0-53.0) % BUN 23 H (9-20) mg/dL Glucose 165 H (74-99) mg/dL POC Glucose (mg/dL) 177 H 165 H (75-99) mg/dL Assessment and Plan Plan: #1 Acute on chronic hypoxemic respiratory failure compared to an acute exacerbation of chronic obstructive pulmonary disease. Clinically improving and the patient is still in acute hypoxic respiratory failure on 5 L of oxygen by nasal cannula with a pulse ox of 98%. #2 Paroxysmal atrial fibrillation, anticoagulated with Eliquis. #3 COPD, on home oxygen at bedtime, patient has an underlying FEV1 1.59 L or 48% of predicted, stage III COPD #4 History of CVA/TIA #5 Coronary artery disease #6 Solitary lung nodule in the left upper lobe, measuring 1 cm, the PET scan was completed and there was no suspicious uptake. This is being followed with the CT chest every 6 months #7 Hypertension, hyperlipidemia #8 Osteoarthritis #9 Benign prostatic hypertrophy #10 Irritable bowel syndrome #11 History of 53 years of smoking, of 2-3 packs per day, patient quit smoking in May 2018 Plan Continue current treatment. Wean down the FiO2 as tolerated to maintain a saturation above 90%. Completed course of Augmentin. We'll suspicious this patient oral steroids as of tomorrow. We'll continue to follow.
--- NOTE | 2018-12-02 19:51 | P.PN ---
Subjective Progress Note Date: 12/02/18 The patient is a 68-year-old male with a PMH of chronic hypoxic respiratory failure on home O2, COPD, systolic CHF, A. fib on Eliquis, coronary artery disease, hypertension, history of CVA, recently discharged from [facility] presented to the ED from [facility] for hypoxia. The pt was disc harged to [facility] on 11/27/18 after a 7 day hospital course for hypoxia and HCAP. The patient notes that he was continued on 4 L NC at [facility] and notes compliance with his bronchodilator nebulizers. The patient had an extensive evaluation in the ED with chest x-ray showing increased bilateral reticular nodular infiltrates with SpO2 88% on 8 L nasal cannula. The patient was subsequently admitted to the medicine service with pulmonary consult and further management. He was seen and examined at the bedside on 12/02/18. The patient continues to feel well though notes some exertional dyspnea. He denied fever, chills, chest pain, shortness of breath, abdominal pain, nausea, or vomiting. Objective - Vital Signs Vital signs: Vital Signs Temp 97.0 F L 12/02/18 16:00 Pulse 77 12/02/18 16:11 Resp 18 12/02/18 16:11 BP 146/60 12/02/18 16:00 Pulse Ox 94 L 12/02/18 16:00 Intake & Output 12/02/18 12/02/18 12/03/18 06:59 18:59 06:59 Intake Total 1320 Output Total 1000 800 Balance -1000 520 Weight 97.5 kg Intake: Oral 1320 Output: Urine 1000 800 Other: # Voids 2 # Bowel Movements 1 - Exam General: Non-toxic, in no acute distress, appears stated age, obese HEENT: NC/AT, anicteric sclerae, moist conjunctiva, no lid-lag, PERRLA Cardiovascular: S1/S2 wnl, no murmurs, rubs, or gallops Lungs: Decreased air entry bilaterally, no rales or rhonchi appreciated, normal respiratory effort, no accessory muscle use Abdominal: Soft, non-tender, non-distended, no guarding, rebound, or rigidity Skin: Warm, dry Extremities: No edema or contractures Psychiatric: Alert and oriented to person, place and time, appropriate affect Neuro: CN II-XII grossly intact, Strength 5/5 in all 4 extremities, Speech intact, Sensation to light touch grossly intact throughout - Labs CBC & Chem 7: 12/02/18 06:33 12/02/18 06:33 Labs: Abnormal Lab Results - Last 24 Hours (Table) 12/01/18 12/02/18 12/02/18 Range/Units 20:57 06:21 06:33 WBC 10.7 H (3.8-10.6) k/uL RBC 3.61 L (4.30-5.90) m/uL Hgb 10.9 L (13.0-17.5) gm/dL Hct 34.8 L (39.0-53.0) % BUN (9-20) mg/dL Glucose (74-99) mg/dL POC Glucose (mg/dL) 231 H 194 H (75-99) mg/dL 12/02/18 12/02/18 12/02/18 Range/Units 06:33 12:05 17:09 WBC (3.8-10.6) k/uL RBC (4.30-5.90) m/uL Hgb (13.0-17.5) gm/dL Hct (39.0-53.0) % BUN 23 H (9-20) mg/dL Glucose 165 H (74-99) mg/dL POC Glucose (mg/dL) 177 H 165 H (75-99) mg/dL Assessment and Plan Plan: Acute on chronic hypoxic respiratory failure, secondary to acute COPD exacerbation -C/w supplemental oxygen -C/w Solumedrol 60 mg q6h, Duonebs -Pulmonary recommendations appreciated, attempting to wean down oxygen Pneumonia -C/w Levaquin and Augmentin Paroxysmal Afib -C/w Eliquis, Cardizem HTN, HLD -Resume home meds DVT proph -Eliquis
[2018-12-02] MEDS: ATORVASTATIN 80 MG TAB PO SCH (20:40)
[2018-12-02] MEDS: TAMSULOSIN 0.4 MG CAP.ER.24H PO SCH (20:41)
[2018-12-02 21:02] LABS: Glucose,Whole Blood 258 mg/dL (75-99)
[2018-12-02] MEDS: SODIUM CHLORIDE 0.9% 1,000 ML IV SCH (21:42)
[2018-12-03] MEDS: IPRATROPIUM-ALBUTEROL 3 ML NEB INHALATION SCH ×5 (00:12→16:06)
[2018-12-03] MEDS: METOPROLOL TARTRATE 50 MG TAB PO SCH ×3 (06:02→17:14)
[2018-12-03] MEDS: DILTIAZEM ORAL 30 MG TAB PO SCH ×3 (06:02→17:14)
[2018-12-03] MEDS: methylPREDNISolone SOD SUCCI 125 MG/2 ML VIAL IV SCH (06:02)
[2018-12-03 06:24] LABS: Glucose,Whole Blood 150 mg/dL (75-99)
[2018-12-03] MEDS: INSULIN ASPART (NovoLOG) 100 UNIT/ML VIAL SQ SCH ×3 (06:49→17:11)
[2018-12-03] MEDS: POTASSIUM CHLORIDE ER 20 MEQ TAB.ER PO SCH (07:56)
[2018-12-03] MEDS: GABAPENTIN 400 MG CAP PO SCH ×3 (07:56→17:14)
[2018-12-03] MEDS: DIGOXIN 250 MCG TAB PO SCH (07:56)
[2018-12-03] MEDS: guaiFENesin 600 MG TABLET.ER PO SCH (07:56)
[2018-12-03] MEDS: APIXABAN 5 MG TAB PO SCH (07:56)
[2018-12-03] MEDS: PANTOPRAZOLE 40 MG TABLET PO SCH (07:57)
[2018-12-03] MEDS: AMOXIC-POT CLAV 875-125MG 1 EACH TAB PO SCH (07:57)
[2018-12-03] MEDS: LEVOFLOXACIN 750 MG TAB PO SCH (07:57)
[2018-12-03] MEDS: ASPIRIN 81 MG PO SCH (07:58)
[2018-12-03] MEDS: FLUTICASONE 50MCG/SPRAY NASAL 16GM EA NOSTRIL SCH (07:58)
[2018-12-03] MEDS: MULTIVITAMINS, THERA 1 EACH TAB PO SCH (07:58)
[2018-12-03] MEDS: FORMOTEROL FUMARATE 20 MCG/2 ML NEBU INHALATION SCH (08:16)
[2018-12-03] MEDS: HYDROcodone/APAP 10-325MG 1 EACH TAB PO PRN ×2 (09:00→15:52)
[2018-12-03 11:31] LABS: Glucose,Whole Blood 181 mg/dL (75-99)
[2018-12-03 11:54] VITALS: TEMP 97
[2018-12-03 15:56] VITALS: BP 134/58; RESP 18
--- NOTE | 2018-12-03 16:10 | P.DS ---
Providers Date of admission: 11/30/18 21:11 Expected date of discharge: 12/03/18 Attending physician: Braydon Arenas MD Consults: 11/30/18 21:12 Consult Physician Routine Consulting Provider: Avery Bravo Reason/Comments: dyspnea, hypoxia Do you want consulting provider notified?: Yes [facility] Course: The patient is a 68-year-old male with a PMH of chronic hypoxic respiratory failure on home O2, COPD, systolic CHF, A. fib on Eliquis, coronary artery disease, hypertension, history of CVA, recently discharged from [facility] presented to the ED from [facility] for hypoxia. The pt was discharged to [facility] on 11/27/18 after a 7 day hospital course for hypoxia and HCAP. The patient notes that he was continued on 4 L NC at [facility] and notes compliance with his bronchodilator nebulizers. The patient had an extensive evaluation in the ED with chest x-ray showing increased bilateral reticular nodular infiltrates with SpO2 88% on 8 L nasal cannula. The patient was subsequently admitted to the medicine service with pulmonary consult and further management. The patient was placed on IV steroids and his oxygen was gradually down titrated to his home settings of 4 L via nasal cannula. The patient was evaluated by pulmonary who recommended that the patient be discharged on a steroid burst taper and be placed on spiriva along with the symbicort inhaler. The patient was also evaluated by physical therapy and was deemed appropriate for discharge to home with home-health. Physical Examination General: Non-toxic, in no acute distress, appears stated age, obese HEENT: NC/AT, anicteric sclerae, moist conjunctiva, no lid-lag, PERRLA Cardiovascular: S1/S2 wnl, no murmurs, rubs, or gallops Lungs: Clear to auscultation, normal respiratory effort, no accessory muscle use Abdominal: Soft, non-tender, non-distended, no guarding, rebound, or rigidity Skin: Warm, dry Extremities: No edema or contractures Psychiatric: Alert and oriented to person, place and time, appropriate affect Neuro: CN II-XII grossly intact, Strength 5/5 in all 4 extremities, Speech int act, Sensation to light touch grossly intact throughout Discharge diagnosis: Acute on chronic hypoxic respiratory failure, secondary to acute COPD exacerbation; pneumonia; paroxysmal atrial fibrillation; hypertension; hyperlipidemia A total of 35 minutes of time were spent preparing this complex discharge summary. Patient Condition at Discharge: Fair Plan - Discharge Summary Discharge Rx Participant: Yes New Discharge Prescriptions: New predniSONE 0 mg PO DIRECTED #21 tab Tiotropium 18 Mcg/Puff [Spiriva] 1 puff INHALATION DAILY #1 device Continue Multivitamins, Thera [Multivitamin (formulary)] 1 tab PO DAILY Aspirin 81 mg PO DAILY Ipratropium-Albuterol Nebulize [Duoneb 0.5 mg-3 mg/3 ml Soln] 3 ml INHALATION RT-QID PRN PRN Reason: Shortness Of Breath Esomeprazole Magnesium [NexIUM] 40 mg PO DAILY Atorvastatin [Lipitor] 80 mg PO HS Gabapentin [Neurontin] 400 mg PO QID #120 cap HYDROcodone/APAP 10-325MG [[place] 10-325] 1 tab PO Q6H PRN #30 tab PRN Reason: Pain Cyclobenzaprine [Flexeril] 10 mg PO Q8H PRN PRN Reason: Muscle Spasm Digoxin 250 mcg PO DAILY #10 tablet Diltiazem HCl 90 mg PO Q6H #40 tablet Apixaban [Eliquis] 5 mg PO BID #20 tab Tamsulosin HCl [Flomax] 0.4 mg PO HS #20 capsule Potassium Chloride ER [K-Dur 20] 20 meq PO BID #20 tab.er.prt Metoprolol Tartrate [Lopressor] 100 mg PO Q6H #40 tablet predniSONE 20 mg PO DAILY #10 tab Changed Budesonide-Formot 160-4.5 Mcg [Symbicort 160-4.5 Mcg Inhaler] 2 puff INHALATION RT-BID #1 inhaler Discontinued Naproxen 500 mg PO BID PRN PRN Reason: PAIN/INFLAMMATION Amoxic-Pot Clav 875-125Mg [Augmentin 875-125] 1 tab PO BID@0800,2000 Omeprazole 40 mg PO BID Discharge Medication List Multivitamins, Thera [Multivitamin (formulary)] 1 tab PO DAILY 05/19/18 [History] Aspirin 81 mg PO DAILY 11/21/18 [History] Atorvastatin [Lipitor] 80 mg PO HS 11/21/18 [History] Esomeprazole Magnesium [NexIUM] 40 mg PO DAILY 11/21/18 [History] Ipratropium-Albuterol Nebulize [Duoneb 0.5 mg-3 mg/3 ml Soln] 3 ml INHALATION RT-QID PRN 11/21/18 [History] Gabapentin [Neurontin] 400 mg PO QID #120 cap 11/27/18 [Rx] HYDROcodone/APAP 10-325MG [[place]ing[place] 10-325] 1 tab PO Q6H PRN #30 tab 11/27/18 [Rx] Cyclobenzaprine [Flexeril] 10 mg PO Q8H PRN 11/30/18 [History] Apixaban [Eliquis] 5 mg PO BID #20 tab 12/03/18 [Rx] Budesonide-Formot 160-4.5 Mcg [Symbicort 160-4.5 Mcg Inhaler] 2 puff INHALATION RT-BID #1 inhaler 12/03/18 [Rx] Digoxin 250 mcg PO DAILY #10 tablet 12/03/18 [Rx] Diltiazem HCl 90 mg PO Q6H #40 tablet 12/03/18 [Rx] Metoprolol Tartrate [Lopressor] 100 mg PO Q6H #40 tablet 12/03/18 [Rx] Potassium Chloride ER [K-Dur 20] 20 meq PO BID #20 tab.er.prt 12/03/18 [Rx] Tamsulosin HCl [Flomax] 0.4 mg PO HS #20 capsule 12/03/18 [Rx] Tiotropium 18 Mcg/Puff [Spiriva] 1 puff INHALATION DAILY #1 device 12/03/18 [Rx] predniSONE 0 mg PO DIRECTED #21 tab 12/03/18 [Rx] predniSONE 20 mg PO DAILY #10 tab 12/03/18 [Rx] Follow up Appointment(s)/Referral(s): Mekhi Jones MD [Primary Care Provider] - 3 Days (New patient with Dr. Jones?) Avery Bravo DO [Doctor of Osteopathic Medicine] - 12/18/18 1:30 pm (Call office for a sooner appointment if you experience any changes with increasing shortness of breath, fever, wheezing, etc. This is the first available appointment with PFT combined. ) [facility], [NON-STAFF] - Paco Helton MD [STAFF PHYSICIAN] - 12/23/18 1:30 pm (Please keep previous follow up appointment. ) Patient Instructions/Handouts: COPD (Chronic Obstructive Pulmonary Disease) (DC), Chronic Lung Disease and Infection Prevention (DC) Discharge Disposition: HOME WITH HOME HEALTH SERVICES
[2018-12-03 16:19] VITALS: PULSE 77
--- NOTE | 2018-12-03 18:04 | P.PN ---
Subjective Progress Note Date: 12/03/18 Principal diagnosis: Acute on chronic hypoxemic respiratory failure secondary to an acute exacerbation of chronic obstructive pulmonary disease This is a very pleasant 68-year-old gentleman follows Dr. Suazo as his primary care physician. He has a history of coronary artery disease, CVA/TIA, GERD, hypertension, hyperlipidemia, Ana Laura arthritis, benign prostatic hypertrophy, irritable bowel syndrome. Has has a history of Gold stage III chronic obstructive pulmonary disease and follows with Dr. Bravo in our office for the same. He is a 56 year history of smoking 2-3 packs per day however quit in May 2018. He's been maintained on DuoNeb inhalations and Symbicort in the outpatient setting. He also is known to have a left upper lobe lung nodule measuring 1 cm. PET scan revealed no suspicious hypermetabolic uptake. This is being followed in the outpatient setting. Was recently discharged from here on 11/27/2018 following an episode of acute on chronic hypoxemic respiratory failure secondary to an acute left lower lobe infiltrate, suspect healthcare acquired pneumonia. Sputum cultures on that admission revealed Linda only. He does have a previous history of Serratia marcescens. He was brought back here from the [facility] after having episodes of hypoxemia in the 80s. The patient is seen today in consultation on the selective care unit. He is currently awake and alert in no acute distress. He is somewhat unclear as to why he was brought back to the hospital. Chest x-ray revealed bilateral reticular nodule infiltrates, improved compared to previous. There is changes of chronic emphysema. No new labs today. He's been initiated and DuoNeb inhalations, Augmentin, Levaquin and IV Solu-Medrol. He is anticoagulated with Eliquis. The patient is seen today 12/03/2018 in follow-up on the selective care unit. He is currently sitting up at the bedside. Awake and alert in no acute distress. Feeling back to his baseline as far as his pulmonary status is concerned. Maintaining oxygen saturations in the 90s on 4 L/m per nasal cannula. He's been afebrile. Blood glucose 181. He remains on IV Solu-Medrol, DuoNebs, Augmentin. Objective - Vital Signs Vital signs: Vital Signs Temp 97.0 F L 12/03/18 15:55 Pulse 77 12/03/18 16:18 Resp 18 12/03/18 16:18 BP 134/58 12/03/18 15:55 Pulse Ox 97 12/03/18 15:55 Intake & Output 12/02/18 12/03/18 12/03/18 18:59 06:59 18:59 Intake Total 4874 373 0429 Output Total 800 200 550 Balance 520 50 690 Weight 98.7 kg Intake: Intake, IV Titration 240 Amount Sodium Chloride 0.9% 1, 240 000 ml @ 20 mls/hr IV . Q24H [facility] Rx#:[id number] Oral 1431 718 2370 Output: Urine 800 200 550 Other: # Voids 2 2 1 # Bowel Movements 1 1 - Exam GENERAL EXAM: Alert, pleasant, 68-year-old male patient, the 4 L nasal cannula with a pulse ox of 97%, comfortable in no apparent distress. HEAD: Normocephalic/atraumatic. EYES: Normal reaction of pupils, equal size. Conjunctiva pink, sclera white. NOSE: Clear with pink turbinates. THROAT: No erythema or exudates. NECK: No masses, no JVD, no thyroid enlargement, no adenopathy. CHEST: No chest wall deformity. Symmetrical expansion. LUNGS: Diminished breath sounds, with the expiratory wheezes and rhonchi at the bases, more so on the left CVS: Regular rate and rhythm, normal S1 and S2, no gallops, no murmurs, no rubs ABDOMEN: Soft, nontender. No hepatosplenomegaly, normal bowel sounds, no guarding or rigidity. EXTREMITIES: No clubbing, no edema, no cyanosis, 2+ pulses and upper and lower extremities. MUSCULOSKELETAL: Muscle strength and tone normal. SPINE: No scoliosis or deformity SKIN: No rashes CENTRAL NERVOUS SYSTEM: No focal deficits, tone is normal in all 4 extremities. PSYCHIATRIC: Alert and oriented -3. Appropriate affect. Intact judgment and insight. - Labs CBC & Chem 7: 12/02/18 06:33 12/02/18 06:33 Labs: Abnormal Lab Results - Last 24 Hours (Table) 12/02/18 12/03/18 12/03/18 Range/Units 21:01 06:22 11:29 POC Glucose (mg/dL) 258 H 150 H 181 H (75-99) mg/dL Assessment and Plan Assessment: Impression: #1 Acute on chronic hypoxemic respiratory failure secondary to an acute exacerbation of chronic obstructive pulmonary disease. #2 Paroxysmal atrial fibrillation, anticoagulated with Eliquis. #3 COPD, on home oxygen at bedtime, patient has an underlying FEV1 1.59 L or 48% of predicted, stage III COPD #4 History of CVA/TIA #5 Coronary artery disease #6 Solitary lung nodule in the left upper lobe, measuring 1 cm, the PET scan was completed and there was no suspicious uptake. This is being followed with the CT chest every 6 months #7 Hypertension, hyperlipidemia #8 Osteoarthritis #9 Benign prostatic hypertrophy #10 Irritable bowel syndrome #11 History of 53 years of smoking, of 2-3 packs per day, patient quit smoking in May 2018 #12 GERD/reflux Plan: The patient was seen and evaluated by Dr. Santiago. He is cleared for discharge from the pulmonary standpoint. He should follow-up in our office in 1-2 weeks' time. Continue home oxygen and his home pulmonary medications. He and his are encouraged to call sooner with any recurrence of symptoms or other questions or concerns. I, the cosigning physician, performed a history & physical examination of the patient. Lungs sounds with faint end expiratory wheeze, few scattered rhonchi. Maintaining good O2 saturations in the 90s on 4 L/m per nasal cannula. I discussed the assessment and plan of care with my nurse practitioner, Radha Valenzuela. I attest to the above note as dictated by her.
[2018-12-04] MEDS ORDERED: predniSONE 20 MG TAB PO SCH (09:00)
== END 2018-12-03 17:30 | disposition home health service (06) | DRG 190 ==
LOC: EC 17:17 → 3SCARD 21:11
PROVIDERS: ADMIT Family Medicine; ATTEND Family Medicine
DX: J43.9 Emphysema, unspecified (principal); J96.21 Acute and chronic respiratory failure with hypoxia; J18.9 Pneumonia, unspecified organism; I24.8 Other forms of acute ischemic heart disease; E78.5 Hyperlipidemia, unspecified; I11.0 Hypertensive heart disease with heart failure; I25.10 Atherosclerotic heart disease of native coronary artery without angina pectoris; I48.0 Paroxysmal atrial fibrillation; K21.9 Gastro-esophageal reflux disease without esophagitis; K58.9 Irritable bowel syndrome, unspecified; M19.90 Unspecified osteoarthritis, unspecified site; N40.0 Benign prostatic hyperplasia without lower urinary tract symptoms; Z79.01 Long term (current) use of anticoagulants; Z79.51 Long term (current) use of inhaled steroids; Z79.52 Long term (current) use of systemic steroids; Z79.82 Long term (current) use of aspirin; Z79.899 Other long term (current) drug therapy; Z80.1 Family history of malignant neoplasm of trachea, bronchus and lung; Z86.73 Personal history of transient ischemic attack (TIA), and cerebral infarction without residual deficits; Z87.891 Personal history of nicotine dependence; Z96.652 Presence of left artificial knee joint; Z98.42 Cataract extraction status, left eye; Z98.41 Cataract extraction status, right eye; Z87.01 Personal history of pneumonia (recurrent); Z99.81 Dependence on supplemental oxygen; Z88.8 Allergy status to other drugs, medicaments and biological substances; R91.1 Solitary pulmonary nodule
CPT/HCPCS: 36415; 71046; 80048; 80053; 82803; 83735; 83880; 84484; 85025; 85027; 85610; 85730; 94640; 94760; 96365; 96375; 99285

== ENCOUNTER 2018-12-06 17:59 | Observation (INO) | payer MEDICARE, BC ==
[2018-12-06] MEDS ORDERED: methylPREDNISolone SOD SUCCI 125 MG/2 ML VIAL IV STA (18:00)
[2018-12-06] MEDS ORDERED: IPRATROPIUM 0.5 MG/2.5 ML NEBU INHALATION STA (18:00)
--- NOTE | 2018-12-06 18:12 | ED ---
General Adult HPI - General Stated complaint: KANWAL Time Seen by Provider: 12/06/18 18:00 Source: patient, EMS, RN notes reviewed, old records reviewed - History of Present Illness Initial comments: 68-year-old male presenting with hypoxia, cough and dyspnea. Patient has history of oxygen dependent respiratory failure. He has history of COPD. Patient had recent admission with hypoxic respiratory failure. History is limited patient denies pain complaints. No reported history of fever. He did have recent admission with healthcare associated pneumonia as well. - Related Data Home Medications Medication Instructions Recorded Confirmed Multivitamins, Thera [Multivitamin 1 tab PO DAILY 05/19/18 12/06/18 (formulary)] Aspirin 81 mg PO DAILY 11/21/18 12/06/18 Atorvastatin [Lipitor] 80 mg PO HS 11/21/18 12/06/18 Esomeprazole Magnesium [NexIUM] 40 mg PO DAILY 11/21/18 12/06/18 Ipratropium-Albuterol Nebulize 3 ml INHALATION RT-QID PRN 11/21/18 12/06/18 [Duoneb 0.5 mg-3 mg/3 ml Soln] Cyclobenzaprine [Flexeril] 10 mg PO Q8H PRN 11/30/18 12/06/18 Tiotropium 18 Mcg/Puff [Spiriva] 1 puff INHALATION RT-DAILY 12/06/18 12/06/18 predniSONE See Taper PO DIRECTED 12/06/18 12/06/18 Previous Rx's Medication Instructions Recorded Gabapentin [Neurontin] 400 mg PO QID #120 cap 11/27/18 HYDROcodone/APAP 10-325MG [[place] 1 tab PO Q6H PRN #30 tab 11/27/18 10-325] Apixaban [Eliquis] 5 mg PO BID #20 tab 12/03/18 Budesonide-Formot 160-4.5 Mcg 2 puff INHALATION RT-BID #1 inhaler 12/03/18 [Symbicort 160-4.5 Mcg Inhaler] Digoxin 250 mcg PO DAILY #10 tablet 12/03/18 Diltiazem HCl 90 mg PO Q6H #40 tablet 12/03/18 Metoprolol Tartrate [Lopressor] 100 mg PO Q6H #40 tablet 12/03/18 Potassium Chloride ER [K-Dur 20] 20 meq PO BID #20 tab.er.prt 12/03/18 Tamsulosin HCl [Flomax] 0.4 mg PO HS #20 capsule 12/03/18 predniSONE 20 mg PO DAILY #10 tab 12/03/18 Allergies Allergy/AdvReac Type Severity Reaction Status Date / Time montelukast sodium Allergy Itching Verified 12/06/18 18:34 [From [facility]] Review of Systems ROS Statement: Those systems with pertinent positive or pertinent negative responses have been documented in the HPI. ROS Other: All systems not noted in ROS Statement are negative. 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 History of Any Multi-Drug Resistant Organisms: None Reported Past Surgical History: Adenoidectomy, Back Surgery, Heart Catheterization, Hernia Repair, Joint Replacement, Orthopedic Surgery, Tonsillectomy Additional Past Surgical History / Comment(s): L knee replacement, back surgery x2-failed fusion and 2 rods in lower back, L/R cataract surgery, bilat. rib removal (cervical), carpal tunnel R wrist, colonoscopy, L elbow surgery, abdominal hernia repair, 3 R inguinal hernia repairs, L inguinal hernia repair, rectal cystectomy.pain pump(ms) implanted removed 11/06/2018 Past Anesthesia/Blood Transfusion Reactions: Previous Problems w/ Anesthesia Additional Past Anesthesia/Blood Transfusion Reaction / Comment(s): With first surgery became belligerent when waking up. Past Psychological History: No Psychological Hx Reported Smoking Status: Former smoker Past Alcohol Use History: None Reported Past Drug Use History: None Reported - Past Family History Mother Family Medical History: No Reported History Additional Family Medical History / Comment(s): Mother was healthy and lived to be 88 or 89yrs old. Father Family Medical History: Cancer Additional Family Medical History / Comment(s): Father of lung cancer in his early 70's. General Exam General appearance: lethargic Head exam: Present: atraumatic, normocephalic Eye exam: Present: normal appearance, PERRL ENT exam: Present: normal exam Neck exam: Present: normal inspection. Absent: tenderness, meningismus Respiratory exam: Present: respiratory distress, wheezes, rhonchi, accessory muscle use, decreased breath sounds, prolonged expiratory Cardiovascular Exam: Present: regular rate, normal rhythm GI/Abdominal exam: Present: soft, distended. Absent: tenderness, guarding, rebound Extremities exam: Present: pedal edema (trace) Neurological exam: Absent: oriented X3 Psychiatric exam: Present: normal affect, normal mood Skin exam: Present: warm, dry, intact. Absent: cyanosis, diaphoretic Course Vital Signs 12/06/18 12/06/18 12/06/18 18:05 18:24 18:39 Temperature 98.5 F Pulse Rate 70 67 62 Respiratory 30 H 28 H Rate Blood Pressure 141/75 O2 Sat by Pulse 94 L Oximetry 12/06/18 12/06/18 19:09 19:31 Temperature Pulse Rate 67 65 Respiratory 28 H 26 H Rate Blood Pressure 147/71 145/71 O2 Sat by Pulse 95 95 Oximetry EKG Findings - EKG Comments: EKG Findings:: EKG: Normal sinus rhythm, baseline artifact secondary to respiratory distress. No definitive signs of ischemia, no ST segment elevation. Rate of 67, ID interval 164, QRS duration 88, QTC 403 Medical Decision Making - Medical Decision Making 68-year-old male presenting with hypoxia, moderate respiratory distress. Placed on BiPAP. Patient has mild leukocytosis, stable hemoglobin, he has a CO2 of 31 consistent with chronic CO2 retention. He has a lactic acid of 3.6 which is suspect is predominantly from hypoxia. He is a mildly elevated BNP at 1500 by mouth chest x-ray negative for focal pneumonia. Patient will be admitted for treatment of COPD exacerbation and respiratory failure requiring BiPAP. Case is discussed with Dr. Arenas who will admit. - Lab Data Result diagrams: 12/06/18 18:00 12/06/18 18:00 Lab Results 12/06/18 12/06/18 12/06/18 Range/Units 18:00 18:00 18:00 WBC 12.2 H (3.8-10.6) k/uL RBC 3.73 L (4.30-5.90) m/uL Hgb 11.5 L (13.0-17.5) gm/dL Hct 36.1 L (39.0-53.0) % MCV 96.9 (80.0-100.0) fL MCH 30.8 (25.0-35.0) pg MCHC 31.8 (31.0-37.0) g/dL RDW 14.3 (11.5-15.5) % Plt Count 220 (150-450) k/uL Neutrophils % 91 % Lymphocytes % 5 % Monocytes % 3 % Eosinophils % 1 % Basophils % 0 % Neutrophils # 11.1 H (1.3-7.7) k/uL Lymphocytes # 0.6 L (1.0-4.8) k/uL Monocytes # 0.4 (0-1.0) k/uL Eosinophils # 0.1 (0-0.7) k/uL Basophils # 0.0 (0-0.2) k/uL Hypochromasia Slight PT (9.0-12.0) sec INR (<1.2) APTT (22.0-30.0) sec VBG pH (7.31-7.41) VBG pCO2 (37-51) mmHg VBG HCO3 (24-28) mmol/L Sodium 138 (137-145) mmol/L Potassium 4.8 (3.5-5.1) mmol/L Chloride 101 (98-107) mmol/L Carbon Dioxide 31 H (22-30) mmol/L Anion Gap 6 mmol/L BUN 18 (9-20) mg/dL Creatinine 0.66 (0.66-1.25) mg/dL Est GFR (CKD-EPI)AfAm >90 (>60 ml/min/1.73 sqM) Est GFR (CKD-EPI)NonAf >90 (>60 ml/min/1.73 sqM) Glucose 199 H (74-99) mg/dL Plasma Lactic Acid Isaac 3.6 H* (0.7-2.0) mmol/L Calcium 9.6 (8.4-10.2) mg/dL Magnesium 1.9 (1.6-2.3) mg/dL Total Bilirubin 0.4 (0.2-1.3) mg/dL AST 22 (17-59) U/L ALT 41 (21-72) U/L Alkaline Phosphatase 94 (38-126) U/L Troponin I (0.000-0.034) ng/mL NT-Pro-B Natriuret Pep pg/mL Total Protein 5.6 L (6.3-8.2) g/dL Albumin 3.0 L (3.5-5.0) g/dL 12/06/18 12/06/18 12/06/18 Range/Units 18:00 18:00 18:00 WBC (3.8-10.6) k/uL RBC (4.30-5.90) m/uL Hgb (13.0-17.5) gm/dL Hct (39.0-53.0) % MCV (80.0-100.0) fL MCH (25.0-35.0) pg MCHC (31.0-37.0) g/dL RDW (11.5-15.5) % Plt Count (150-450) k/uL Neutrophils % % Lymphocytes % % Monocytes % % Eosinophils % % Basophils % % Neutrophils # (1.3-7.7) k/uL Lymphocytes # (1.0-4.8) k/uL Monocytes # (0-1.0) k/uL Eosinophils # (0-0.7) k/uL Basophils # (0-0.2) k/uL Hypochromasia PT 9.4 (9.0-12.0) sec INR 0.8 (<1.2) APTT 20.7 L (22.0-30.0) sec VBG pH (7.31-7.41) VBG pCO2 (37-51) mmHg VBG HCO3 (24-28) mmol/L Sodium (137-145) mmol/L Potassium (3.5-5.1) mmol/L Chloride (98-107) mmol/L Carbon Dioxide (22-30) mmol/L Anion Gap mmol/L BUN (9-20) mg/dL Creatinine (0.66-1.25) mg/dL Est GFR (CKD-EPI)AfAm (>60 ml/min/1.73 sqM) Est GFR (CKD-EPI)NonAf (>60 ml/min/1.73 sqM) Glucose (74-99) mg/dL Plasma Lactic Acid Isaac (0.7-2.0) mmol/L Calcium (8.4-10.2) mg/dL Magnesium (1.6-2.3) mg/dL Total Bilirubin (0.2-1.3) mg/dL AST (17-59) U/L ALT (21-72) U/L Alkaline Phosphatase (38-126) U/L Troponin I 0.026 (0.000-0.034) ng/mL NT-Pro-B Natriuret Pep 1520 pg/mL Total Protein (6.3-8.2) g/dL Albumin (3.5-5.0) g/dL 12/06/18 Range/Units 18:00 WBC (3.8-10.6) k/uL RBC (4.30-5.90) m/uL Hgb (13.0-17.5) gm/dL Hct (39.0-53.0) % MCV (80.0-100.0) fL MCH (25.0-35.0) pg MCHC (31.0-37.0) g/dL RDW (11.5-15.5) % Plt Count (150-450) k/uL Neutrophils % % Lymphocytes % % Monocytes % % Eosinophils % % Basophils % % Neutrophils # (1.3-7.7) k/uL Lymphocytes # (1.0-4.8) k/uL Monocytes # (0-1.0) k/uL Eosinophils # (0-0.7) k/uL Basophils # (0-0.2) k/uL Hypochromasia PT (9.0-12.0) sec INR (<1.2) APTT (22.0-30.0) sec VBG pH 7.40 (7.31-7.41) VBG pCO2 46 (37-51) mmHg VBG HCO3 28 (24-28) mmol/L Sodium (137-145) mmol/L Potassium (3.5-5.1) mmol/L Chloride (98-107) mmol/L Carbon Dioxide (22-30) mmol/L Anion Gap mmol/L BUN (9-20) mg/dL Creatinine (0.66-1.25) mg/dL Est GFR (CKD-EPI)AfAm (>60 ml/min/1.73 sqM) Est GFR (CKD-EPI)NonAf (>60 ml/min/1.73 sqM) Glucose (74-99) mg/dL Plasma Lactic Acid Isaac (0.7-2.0) mmol/L Calcium (8.4-10.2) mg/dL Magnesium (1.6-2.3) mg/dL Total Bilirubin (0.2-1.3) mg/dL AST (17-59) U/L ALT (21-72) U/L Alkaline Phosphatase (38-126) U/L Troponin I (0.000-0.034) ng/mL NT-Pro-B Natriuret Pep pg/mL Total Protein (6.3-8.2) g/dL Albumin (3.5-5.0) g/dL Disposition Clinical Impression: Acute exacerbation of chronic obstructive airways disease Disposition: ADMITTED IP TO THIS HOSP Condition: Stable Is patient prescribed a controlled substance at d/c from ED?: No Referrals: David Suazo MD [Primary Care Provider] - 1-2 days Decision to Admit Reason: Admit from EC Decision Date: 12/06/18 Decision Time: 20:16
[2018-12-06 18:23] LABS: Basophils % (A) 0 %; Eosinophils # (A) 0.1 k/uL (0-0.7); Eosinophils % (A) 1 %; HCT 36.1 % (39.0-53.0); HGB 11.5 gm/dL (13.0-17.5); Hypochromasia Slight; Lymphocytes # (A) 0.6 k/uL (1.0-4.8); Lymphocytes % (A) 5 %; MCH 30.8 pg (25.0-35.0); MCHC 31.8 g/dL (31.0-37.0); MCV 96.9 fL (80.0-100.0); Mean Platelet Volume 6.9; Monocytes # (A) 0.4 k/uL (0-1.0); Monocytes % (A) 3 %; Neutrophils # (A) 11.1 k/uL (1.3-7.7); Neutrophils % (A) 91 %; Platelet Count 220 k/uL (150-450); RBC 3.73 m/uL (4.30-5.90); RDW 14.3 % (11.5-15.5); VBG PH 7.4 (7.31-7.41); WBC 12.2 k/uL (3.8-10.6)
[2018-12-06] MEDS: ALBUTEROL NEBULIZED 2.5 MG/3 ML INHALATION STA ×2 (18:28→18:29)
[2018-12-06 18:32] LABS: ALT 41 U/L (21-72); AST 22 U/L (17-59); Alkaline Phosphatase 94 U/L (38-126); Anion Gap 6 mmol/L; Blood Urea Nitrogen 18 mg/dL (9-20); Calcium 9.6 mg/dL (8.4-10.2); Carbon Dioxide 31 mmol/L (22-30); Chloride 101 mmol/L (98-107); Glucose 199 mg/dL (74-99); Magnesium 1.9 mg/dL (1.6-2.3); Potassium 4.8 mmol/L (3.5-5.1); Sodium 138 mmol/L (137-145); Total Bilirubin 0.4 mg/dL (0.2-1.3); Total Protein 5.6 g/dL (6.3-8.2)
--- NOTE | 2018-12-06 18:35 | XR ---
EXAMINATION TYPE: XR chest 1V portable DATE OF EXAM: 12/06/2018 COMPARISON: 11/30/2018 HISTORY: Short of breath TECHNIQUE: Single frontal view of the chest is obtained. FINDINGS: Heart and mediastinum are normal. Lungs are clear of infiltrate. There are chest leads. Julius ny thorax is intact. IMPRESSION: No active cardiopulmonary disease. Normal heart. No change.
[2018-12-06 18:42] LABS: INR 0.8 (<1.2); Partial Thromboplastin Time 20.7 sec (22.0-30.0); Prothrombin Time 9.4 sec (9.0-12.0)
[2018-12-06] MEDS ORDERED: SODIUM CHLORIDE 0.9% 500 ML 500 ML IV ONE (19:21)
[2018-12-06] MEDS ORDERED: IPRATROPIUM-ALBUTEROL 3 ML NEB INHALATION PRN (20:09)
[2018-12-06 22:36] VITALS: BMI 32.3
[2018-12-06] MEDS ORDERED: HYDROcodone/APAP 10-325MG 1 EACH TAB PO PRN (22:53)
[2018-12-06] MEDS ORDERED: CYCLOBENZAPRINE 10 MG TAB PO PRN (22:53)
[2018-12-06] MEDS ORDERED: ATORVASTATIN 80 MG TAB PO SCH (23:00)
[2018-12-06] MEDS ORDERED: TAMSULOSIN 0.4 MG CAP.ER.24H PO SCH (23:00)
[2018-12-06] MEDS: METOPROLOL TARTRATE 50 MG TAB PO SCH (23:19)
[2018-12-06] MEDS: GABAPENTIN 400 MG CAP PO SCH (23:19)
[2018-12-06] MEDS: methylPREDNISolone SOD SUCCI 125 MG/2 ML VIAL IV SCH (23:20)
[2018-12-06] MEDS: DILTIAZEM ORAL 30 MG TAB PO SCH (23:20)
--- NOTE | 2018-12-07 05:54 | P.HPIM ---
History of Present Illness H&P Date: 12/06/18 Chief Complaint: KANWAL The patient is a 68-year-old male with a past medical history of chronic respiratory failure on a baseline of approximately 4 L nasal cannula, s tage III Gold COPD, systolic congestive heart failure, paroxysmal A. fib on anticoagulation with eliquis, inflammatory arthritis chronic prednisone therapy, CAD, essential hypertension history of CVA/TIA who presents to the ER via EMS from home with reports of worsening respiratory failure and hypoxia after the patient was noted to have diminished oxygen saturations on room air with SpO2 of approximately 84 % on 5L NC. The patient reports some shortness of air since yesterday and a cough with wheezes, he denies chest pain or lower extremity swelling. Review of records indicates the patient was recently here and discharged 12/03/18 with acute on chronic respiratory failure with hypoxia secondary to COPD exacerbation with a prescription for prednsione burst and Spriva but has not recieved the Sprivia from [place] pharmacy as yet. The patient's also requested an exam of his throat as a patient had recently been diagnosed with thrush by a home visiting nurse In the ER the patient had a chest x-ray that showed no acute cardiopulmonary disease, labs indicated a minor white count of 12.2 hemoglobin of 11.5, sodium 138 potassium 4.8, BUN 18 creatinine 0.66, lactic acid 3.6. The patient was started on breathing treatments given a loading dose of Solu-Medrol IV fluids and recommended for admission Review of Systems Pertinent positives per HPI all other systems otherwise negative Past Medical History Past Medical History: Coronary Artery Disease (CAD), Chest Pain / Angina, COPD, CVA/TIA, Eye Disorder, GERD/Reflux, Hyperlipidemia, Hypertension, Osteoarthritis (OA), Prostate Disorder Additional Past Medical History / Comment(s): BPH, 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 History of Any Multi-Drug Resistant Organisms: None Reported Past Surgical History: Adenoidectomy, Back Surgery, Heart Catheterization, Hernia Repair, Joint Replacement, Orthopedic Surgery, Tonsillectomy Additional Past Surgical History / Comment(s): L knee replacement, back surgery x2-failed fusion and 2 rods in lower back, L/R cataract surgery, bilat. rib removal (cervical), carpal tunnel R wrist, colonoscopy, L elbow surgery, abdominal hernia repair, 3 R inguinal hernia repairs, L inguinal hernia repair, rectal cystectomy.pain pump(ms) implanted removed 11/06/2018 Past Anesthesia/Blood Transfusion Reactions: Previous Problems w/ Anesthesia Additional Past Anesthesia/Blood Transfusion Reaction / Comment(s): With first surgery became belligerent when waking up. Past Psychological History: No Psychological Hx Reported Smoking Status: Former smoker Past Alcohol Use History: None Reported Past Drug Use History: None Reported - Past Family History Mother Family Medical History: No Reported History Additional Family Medical History / Comment(s): Mother was healthy and lived to be 88 or 89yrs old. Father Family Medical History: Cancer Additional Family Medical History / Comment(s): Father of lung cancer in his early 70's. Medications and Allergies Home Medications Medication Instructions Recorded Confirmed Type Multivitamins, Thera [Multivitamin 1 tab PO DAILY 05/19/18 12/06/18 History (formulary)] Aspirin 81 mg PO DAILY 11/21/18 12/06/18 History Atorvastatin [Lipitor] 80 mg PO HS 11/21/18 12/06/18 History Esomeprazole Magnesium [NexIUM] 40 mg PO DAILY 11/21/18 12/06/18 History Ipratropium-Albuterol Nebulize 3 ml INHALATION RT-QID PRN 11/21/18 12/06/18 History [Duoneb 0.5 mg-3 mg/3 ml Soln] Gabapentin [Neurontin] 400 mg PO QID #120 cap 11/27/18 12/06/18 Rx HYDROcodone/APAP 10-325MG [[place] 1 tab PO Q6H PRN #30 tab 11/27/18 12/06/18 Rx 10-325] Cyclobenzaprine [Flexeril] 10 mg PO Q8H PRN 11/30/18 12/06/18 History Apixaban [Eliquis] 5 mg PO BID #20 tab 12/03/18 12/06/18 Rx Budesonide-Formot 160-4.5 Mcg 2 puff INHALATION RT-BID #1 inhaler 12/03/18 12/06/18 Rx [Symbicort 160-4.5 Mcg Inhaler] Digoxin 250 mcg PO DAILY #10 tablet 12/03/18 12/06/18 Rx Diltiazem HCl 90 mg PO Q6H #40 tablet 12/03/18 12/06/18 Rx Metoprolol Tartrate [Lopressor] 100 mg PO Q6H #40 tablet 12/03/18 12/06/18 Rx Potassium Chloride ER [K-Dur 20] 20 meq PO BID #20 tab.er.prt 12/03/18 12/06/18 Rx Tamsulosin HCl [Flomax] 0.4 mg PO HS #20 capsule 12/03/18 12/06/18 Rx predniSONE 20 mg PO DAILY #10 tab 12/03/18 12/06/18 Rx Tiotropium 18 Mcg/Puff [Spiriva] 1 puff INHALATION RT-DAILY 12/06/18 12/06/18 History predniSONE See Taper PO DIRECTED 12/06/18 12/06/18 History Allergies Allergy/AdvReac Type Severity Reaction Status Date / Time montelukast sodium Allergy Itching Verified 12/06/18 18:34 [From [facility]] Physical Exam Vitals: Vital Signs Temp Pulse Resp BP Pulse Ox 12/06/18 19:31 65 26 H 145/71 95 12/06/18 19:09 67 28 H 147/71 95 12/06/18 18:39 62 12/06/18 18:24 67 28 H 12/06/18 18:05 98.5 F 70 30 H 141/75 94 L Intake and Output 12/06/18 12/06/18 12/06/18 06:59 14:59 22:59 Other: Weight 102.058 kg Constitutional: No acute distress, conversant, pleasant Eyes: Anicteric sclerae, moist conjunctiva, no lid-lag, PERRLA ENMT: NC/AT, no erythema, exudates, plastic foreign body noted at the posterior right oropharynx Neck:Supple, FROM, no masses, or JVD, No carotid bruits; No thyromegaly Lungs: Diminished in the bases, with coarse upper airway sounds, respirations u nlabored on BiPAP Cardiovascular: Heart regular in rate and rhythm, No murmurs, gallops, or rubs no peripheral edema Abdominal: Soft Nontender, nom distended, no guarding, no rebound or rigidity, Normoactive bowel sounds No hepatomegaly, No splenomegaly, No palpable mass No abdominal wall hernia noted Skin: Normal temperature, tone, texture, turgor, No induration No subcutaneous nodules, No rash, lesions, No ulcers Extremities:No digital cyanosis No clubbing, Pedal pulses intact and sym metrical Radial pulses intact and symmetrical Normal gait and station, No calf tenderness Psychiatric: Alert and oriented to person, place and time, Appropriate affect Intact judgement Neuro: Muscles Strength 5/5 in all 4 extremities, Sensation to light touch grossly present throughout, Cranial nerves II-XII grossly intact. No focal sensory deficits Results CBC & Chem 7: 12/06/18 18:00 12/06/18 18:00 Labs: Abnormal Lab Results - Last 24 Hours (Table) 12/06/18 12/06/18 12/06/18 Range/Units 18:00 18:00 18:00 WBC 12.2 H (3.8-10.6) k/uL RBC 3.73 L (4.30-5.90) m/uL Hgb 11.5 L (13.0-17.5) gm/dL Hct 36.1 L (39.0-53.0) % Neutrophils # 11.1 H (1.3-7.7) k/uL Lymphocytes # 0.6 L (1.0-4.8) k/uL APTT (22.0-30.0) sec Carbon Dioxide 31 H (22-30) mmol/L Glucose 199 H (74-99) mg/dL Plasma Lactic Acid Isaac 3.6 H* (0.7-2.0) mmol/L Total Protein 5.6 L (6.3-8.2) g/dL Albumin 3.0 L (3.5-5.0) g/dL 12/06/18 Range/Units 18:00 WBC (3.8-10.6) k/uL RBC (4.30-5.90) m/uL Hgb (13.0-17.5) gm/dL Hct (39.0-53.0) % Neutrophils # (1.3-7.7) k/uL Lymphocytes # (1.0-4.8) k/uL APTT 20.7 L (22.0-30.0) sec Carbon Dioxide (22-30) mmol/L Glucose (74-99) mg/dL Plasma Lactic Acid Isaac (0.7-2.0) mmol/L Total Protein (6.3-8.2) g/dL Albumin (3.5-5.0) g/dL Assessment and Plan (1) Acute and chronic respiratory failure with hypoxia Current Visit: No Status: Acute Code(s): J96.21 - ACUTE AND CHRONIC RESPIRATORY FAILURE WITH HYPOXIA SNOMED Code(s): 41114902 (2) Acute exacerbation of chronic obstructive airways disease Current Visit: Yes Status: Acute Code(s): J44.1 - CHRONIC OBSTRUCTIVE PULMONARY DISEASE W (ACUTE) EXACERBATION SNOMED Code(s): 981764604 (3) Essential hypertension Current Visit: No Status: Acute Code(s): I10 - ESSENTIAL (PRIMARY) HYPERTENSION SNOMED Code(s): 75218395 (4) Foreign body Current Visit: Yes Status: Acute Code(s): BCZ7448 - SNOMED Code(s): 420837486 Plan: The patient is admitted in observation status anticipate lesser than 2 midnight stay with acute on chronic respiratory failure secondary to relapse of his acute COPD exacerbation superimposed on presence of plastic tubelike foreign body, discussed with the ER physician Dr. Brady and we both exam the patient's oropharynx and was able to remove approximately 6 inch plastic tubing from the patient's right posterior oropharynx . Currently on BiPAP with acceptable saturations will wean as tolerated to keep sats between 90-92% initiated when necessary and scheduled DuoNeb bronchodilator breathing treatments, continue systemic steroids patient did receive a loading dose o Solu-Medrol in the ER, , Mucinex plan to consult pulmonology for further r ecommendations. Continue to follow his clinical course. DVT and GI prophylaxis with SCDs and Protonix respectively CODE STATUS: Full code Discussed Care with the patient and Anticipate discharge 2 to 3 days Time with Patient: Greater than 30
[2018-12-07] MEDS: methylPREDNISolone SOD SUCCI 125 MG/2 ML VIAL IV SCH ×2 (06:09→12:39)
[2018-12-07] MEDS: DILTIAZEM ORAL 30 MG TAB PO SCH ×2 (06:12→12:39)
[2018-12-07] MEDS: METOPROLOL TARTRATE 50 MG TAB PO SCH ×2 (06:12→12:39)
[2018-12-07] MEDS ORDERED: SYMBICORT 160-4.5 MCG INHALER INHALATION SCH (08:00)
[2018-12-07] MEDS ORDERED: IPRATROPIUM 0.5 MG/2.5 ML NEBU INHALATION SCH (08:00)
[2018-12-07] MEDS: IPRATROPIUM-ALBUTEROL 3 ML NEB INHALATION SCH ×2 (08:08→11:17)
[2018-12-07 08:37] VITALS: RESP 18
[2018-12-07] MEDS: GABAPENTIN 400 MG CAP PO SCH ×2 (08:52→12:40)
[2018-12-07] MEDS ORDERED: APIXABAN 5 MG TAB PO SCH (09:00)
[2018-12-07] MEDS ORDERED: PANTOPRAZOLE 40 MG TABLET PO SCH (09:00)
[2018-12-07] MEDS ORDERED: POTASSIUM CHLORIDE ER 20 MEQ TAB.ER PO SCH (09:00)
[2018-12-07] MEDS ORDERED: MULTIVITAMINS, THERA 1 EACH TAB PO SCH (09:00)
[2018-12-07] MEDS ORDERED: DIGOXIN 250 MCG TAB PO SCH (09:00)
[2018-12-07] MEDS ORDERED: ASPIRIN 81 MG PO SCH (09:00)
--- NOTE | 2018-12-07 11:18 | P.PN ---
Subjective Progress Note Date: 12/07/18 Patient is a 68-year-old male with a past medical history of chronic hypoxic respiratory failure on 4 L nasal cannula, COPD, congestive heart failure, paroxysmal A. fib on Eliquis, coronary artery disease, hypertension, and history of CVA presented to the ED for respiratory distress and hypoxia, after the patient checked his pulse ox at home and was noted to have an SpO2 of 84% on 5 L of nasal cannula. The patient had ordered some shortness of breath with coughing and wheezing. In the ED, the patient was noted to have a foreign body in the right posterior oropharynx, which was subsequently removed and was noted to be a 6 inch piece of plastic tubing. The patient underwent an extensive evaluation with chest x-ray that revealed no acute abnormalities, WBC count 12.2, hemoglobin 11.5, lactic acid 3.6, and creatinine 0.6. Patient was started on IV steroids and DuoNeb's and placed on BiPAP with pulmonary consult. The patient was seen and examined at the bedside in 12/07/2018. He reports that his breathing is somewhat improved and was in good spirits. He denied any additional complaints. He denied cough, fever, chills, chest pain, nausea, vomiting, or abdominal pain. Objective - Vital Signs Vital signs: Vital Signs Temp 97.4 F L 12/07/18 08:15 Pulse 76 12/07/18 08:24 Resp 18 12/07/18 08:15 BP 156/62 12/07/18 08:15 Pulse Ox 94 L 12/07/18 08:15 Intake & Output 12/06/18 12/07/18 12/07/18 18:59 06:59 18:59 Intake Total 360 Balance 360 Weight 102.058 kg 99.9 kg Intake: Oral 360 Other: Voiding Method Toilet # Voids 1 1 # Bowel Movements 1 - Exam General: Non-toxic, in no acute distress, appears stated age, obese HEENT: NC/AT, anicteric sclerae, moist conjunctiva, no lid-lag, PERRLA, oral thrush Cardiovascular: S1/S2 wnl, no murmurs, rubs, or gallops Lungs: Scattered coarse breath sounds with poor air entry, normal respiratory effort, no accessory muscle use Abdominal: Soft, non-tender, non-distended, no guarding, rebound, or rigidity Skin: Warm, dry Extremities: No edema or contractures Psychiatric: Alert and oriented to person, place and time, appropriate affect Neuro: CN II-XII grossly intact, Strength 5/5 in all 4 extremities, Speech intact, Sensation to light touch grossly intact throughout - Labs CBC & Chem 7: 12/06/18 18:00 12/06/18 18:00 Labs: Abnormal Lab Results - Last 24 Hours (Table) 12/06/18 12/06/18 12/06/18 Range/Units 18:00 18:00 18:00 WBC 12.2 H (3.8-10.6) k/uL RBC 3.73 L (4.30-5.90) m/uL Hgb 11.5 L (13.0-17.5) gm/dL Hct 36.1 L (39.0-53.0) % Neutrophils # 11.1 H (1.3-7.7) k/uL Lymphocytes # 0.6 L (1.0-4.8) k/uL APTT (22.0-30.0) sec Carbon Dioxide 31 H (22-30) mmol/L Glucose 199 H (74-99) mg/dL Plasma Lactic Acid Isaac 3.6 H* (0.7-2.0) mmol/L Total Protein 5.6 L (6.3-8.2) g/dL Albumin 3.0 L (3.5-5.0) g/dL 12/06/18 12/06/18 Range/Units 18:00 21:50 WBC (3.8-10.6) k/uL RBC (4.30-5.90) m/uL Hgb (13.0-17.5) gm/dL Hct (39.0-53.0) % Neutrophils # (1.3-7.7) k/uL Lymphocytes # (1.0-4.8) k/uL APTT 20.7 L (22.0-30.0) sec Carbon Dioxide (22-30) mmol/L Glucose (74-99) mg/dL Plasma Lactic Acid Isaac 4.5 H* (0.7-2.0) mmol/L Total Protein (6.3-8.2) g/dL Albumin (3.5-5.0) g/dL Assessment and Plan Plan: Acute on chronic hypoxic respiratory failure, secondary to acute COPD exacerbation -Continue with IV Solu-Medrol and DuoNeb's -Taper down nasal cannula oxygen as tolerated to maintain SpO2 between 90 and 92% -Pulmonary consulted, recs pending -Continue with Symbicort Paroxysmal Atrial fibrillation -Continue with Eliquis Pretension -Resume home medications Coronary artery disease -Continue with home med aspirin DVT prophylaxis -Eliquis Discussed with:Patient, Anticipated discharge date: 12/08/[address]: Home A total of 35 minutes was spent on the care of this complex patient more than 50% of the time was spent in counseling and care coordination.
--- NOTE | 2018-12-07 14:37 | P.DS ---
Providers Date of admission: 12/06/18 20:11 Expected date of discharge: 12/07/18 Attending physician: Braydon Arenas MD Consults: 12/06/18 20:09 Consult Physician Routine Consulting Provider: Avery Bravo Consult Reason/Comments: COPD, hypoxic respiratory failure Do you want consulting provider notified?: Yes Primary care physician: [facility] Course: Patient is a 68-year-old male with a past medical history of chronic hypoxic respiratory failure on 4 L nasal cannula, COPD, congestive heart failure, paroxysmal A. fib on Eliquis, coronary artery disease, hypertension, and history of CVA presented to the ED for respiratory distress and hypoxia, after the patient checked his pulse ox at home and was noted to have an SpO2 of 84% on 5 L of nasal cannula. The patient had ordered some shortness of breath with coughing and wheezing. In the ED, the patient was noted to have a foreign body in the right posterior oropharynx, which was subsequently removed and was noted to be a 6 inch piece of plastic tubing (nasal trumpet). The patient underwent an extensive evaluation with chest x-ray that revealed no acute abnormalities, WBC count 12.2, hemoglobin 11.5, lactic acid 3.6, and creatinine 0.6. Patient was started on IV steroids and DuoNeb's and placed on BiPAP with pulmonary consult. The foreign object was believed to be a nasal trumpet that may have bee n placed when the patient was getting his pain-pump removed in 11/2018 as per the . The patient was evaluated by Pulmonary who noted that the patient is stable and cleared for discharge. The patient was seen and examined on the day of discharge. He reported that his breathing had somewhat improved and he was in good spirits. He denied any additional complaints. He denied cough, fever, chills, chest pain, nausea, vomiting, or abdominal pain. Physical Examination General: Non-toxic, in no acute distress, appears stated age, obese HEENT: NC/AT, anicteric sclerae, moist conjunctiva, no lid-lag, PERRLA, oral thrush Cardiovascular: S1/S2 wnl, no murmurs, rubs, or gallops Lungs: Scattered coarse breath sounds with poor air entry, normal respiratory effort, no accessory muscle use Abdominal: Soft, non-tender, non-distended, no guarding, rebound, or rigidity Skin: Warm, dry Extremities: No edema or contractures Psychiatric: Alert and oriented to person, place and time, appropriate affect Neuro: CN II-XII grossly intact, Strength 5/5 in all 4 extremities, Speech intact, Sensation to light touch grossly intact throughout Discharge diagnosis: Acute on chronic hypoxic respiratory failure, secondary to acute COPD exacerbation; paroxysmal atrial fibrillation on Eliquis; hypertension; coronary artery disease A total of 35 minutes of time were spent preparing this complex discharge summary. Patient Condition at Discharge: Stable Plan - Discharge Summary Discharge Rx Participant: Yes New Discharge Prescriptions: No Action Multivitamins, Thera [Multivitamin (formulary)] 1 tab PO DAILY Aspirin 81 mg PO DAILY Ipratropium-Albuterol Nebulize [Duoneb 0.5 mg-3 mg/3 ml Soln] 3 ml INHALATION RT-QID PRN PRN Reason: Shortness Of Breath Esomeprazole Magnesium [NexIUM] 40 mg PO DAILY Atorvastatin [Lipitor] 80 mg PO HS Gabapentin [Neurontin] 400 mg PO QID #120 cap HYDROcodone/APAP 10-325MG [[place] 10-325] 1 tab PO Q6H PRN #30 tab PRN Reason: Pain Cyclobenzaprine [Flexeril] 10 mg PO Q8H PRN PRN Reason: Muscle Spasm Digoxin 250 mcg PO DAILY #10 tablet Diltiazem HCl 90 mg PO Q6H #40 tablet Apixaban [Eliquis] 5 mg PO BID #20 tab Tamsulosin HCl [Flomax] 0.4 mg PO HS #20 capsule Potassium Chloride ER [K-Dur 20] 20 meq PO BID #20 tab.er.prt Metoprolol Tartrate [Lopressor] 100 mg PO Q6H #40 tablet predniSONE 20 mg PO DAILY #10 tab Budesonide-Formot 160-4.5 Mcg [Symbicort 160-4.5 Mcg Inhaler] 2 puff INHALATION RT-BID #1 inhaler Tiotropium 18 Mcg/Puff [Spiriva] 1 puff INHALATION RT-DAILY predniSONE See Taper PO DIRECTED Discharge Medication List Multivitamins, Thera [Multivitamin (formulary)] 1 tab PO DAILY 05/19/18 [History] Aspirin 81 mg PO DAILY 11/21/18 [History] Atorvastatin [Lipitor] 80 mg PO HS 11/21/18 [History] Esomeprazole Magnesium [NexIUM] 40 mg PO DAILY 11/21/18 [History] Ipratropium-Albuterol Nebulize [Duoneb 0.5 mg-3 mg/3 ml Soln] 3 ml INHALATION RT-QID PRN 11/21/18 [History] Gabapentin [Neurontin] 400 mg PO QID #120 cap 11/27/18 [Rx] HYDROcodone/APAP 10-325MG [[place] 10-325] 1 tab PO Q6H PRN #30 tab 11/27/18 [Rx] Cyclobenzaprine [Flexeril] 10 mg PO Q8H PRN 11/30/18 [History] Apixaban [Eliquis] 5 mg PO BID #20 tab 12/03/18 [Rx] Budesonide-Formot 160-4.5 Mcg [Symbicort 160-4.5 Mcg Inhaler] 2 puff INHALATION RT-BID #1 inhaler 12/03/18 [Rx] Digoxin 250 mcg PO DAILY #10 tablet 12/03/18 [Rx] Diltiazem HCl 90 mg PO Q6H #40 tablet 12/03/18 [Rx] Metoprolol Tartrate [Lopressor] 100 mg PO Q6H #40 tablet 12/03/18 [Rx] Potassium Chloride ER [K-Dur 20] 20 meq PO BID #20 tab.er.prt 12/03/18 [Rx] Tamsulosin HCl [Flomax] 0.4 mg PO HS #20 capsule 12/03/18 [Rx] predniSONE 20 mg PO DAILY #10 tab 12/03/18 [Rx] Tiotropium 18 Mcg/Puff [Spiriva] 1 puff INHALATION RT-DAILY 12/06/18 [History] predniSONE See Taper PO DIRECTED 12/06/18 [History] Follow up Appointment(s)/Referral(s): [facility], [NON-STAFF] - David Suazo MD [Primary Care Provider] - 1-2 days
[2018-12-07 14:51] VITALS: BP 137/68; PULSE 84; TEMP 98.8
--- NOTE | 2018-12-07 16:07 | P.CNPUL ---
History of Present Illness Consult date: 12/07/18 Requesting physician: Benito Norton Reason for consult: dyspnea Chief complaint: Shortness of breath, hypoxia, cough History of present illness: This is a 68-year-old white male patient with history of COPD with chronic hypoxemic respiratory failure, hypertension, hyperlipidemia coronary artery di sease, CVA/TIA, chronic back pain with history of spinal fusions and elodia placement in lower back, multiple surgeries for repair of abdominal hernia, inguinal hernias. Patient has a history of nicotine dependence, currently in remission, he was recently hospitalized for acute on chronic hypoxemic re spiratory failure related to COPD, and prior to that he was also hospitalized for a suspected healthcare acquired pneumonia in October 2018. Patient was treated, improved, and discharged home on 12/03/2018 on a course of steroids, antibiotics, patient is on home O2 at 4 L/m, he is on DuoNeb inhalations and Symbicort in the outpatient setting. We recommended Spiriva to his outpatient meds upon his discharge but apparently patient has not picked it up yet. On 12/06/2018 patient presented to the hospital with his for complaints of worsening shortness of breath, cough, and hypoxemia on his usual 4-5 L of oxygen per nasal cannula, he denied any history of fever, denied any chest complaints, no nausea vomiting or diarrhea, chest x-ray showed no active cardiopulmonary process, lab work did not show any significant leukocytosis, white blood cell count was 12.2, hemoglobin was 11.5, electrolytes were within normal limits with exception of CO2 which was elevated at 31, BUN of 18, creatinine of 0.66, plasma lactic acid was elevated at 3.6, likely related to acute on chronic hypoxemic respiratory failure, not related to sepsis, troponin was negative at 0.026, and proBNP was 1520. Patient had been complaining of pressure in his right maxillary sinus, and some discomfort in the posterior oropharynx, and upon inspection of foreign-body was noted in the back of patient's oropharynx and was removed by the ER physician, which turned out to be a nasal trumpet. Patient does not recall when this could have been inserted, patient's thinks that he may have been inserted for his pain pump removal on 11/06/[address] took [address] at the [facility] in [place]. Patient also has oropharyngeal candidiasis. On today's exam patient is resting comfortably in bed, he is on his 4 L of oxygen, and his pulse ox is 97%, he is afebrile, hemodynamically patient is stable, he states his breathing is much improved, lung sounds are positive for a few scattered rhonchi, no significant wheezing, no complaints of chest pain. Patient is requesting to go home today. No acute events overnight, patient has been treated with IV steroids, nebulized bronchodilators, he is on his Symbicort. We discussed the case with the attending physician, and from pulmonary perspective patient is stable for discharge home today Review of Systems All systems: negative Constitutional: Denies chills, Denies fever Eyes: denies blurred vision, denies pain Ears, nose, mouth and throat: Reports sinus pressure, Denies headache, Denies sore throat Cardiovascular: Denies chest pain, Denies shortness of breath Respiratory: Reports dyspnea, Reports home oxygen, Reports respiratory infections, Reports wheezing, Denies cough Gastrointestinal: Denies abdominal pain, Denies diarrhea, Denies nausea, Denies vomiting Musculoskeletal: Denies myalgias Integumentary: Denies pruritus, Denies rash Neurological: Denies numbness, Denies weakness Psychiatric: Denies anxiety, Denies depression Endocrine: Denies fatigue, Denies weight change Past Medical History Past Medical History: Coronary Artery Disease (CAD), Chest Pain / Angina, COPD, CVA/TIA, Eye Disorder, GERD/Reflux, Hyperlipidemia, Hypertension, Osteoarthritis (OA), Prostate Disorder Additional Past Medical History / Comment(s): BPH, 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 History of Any Multi-Drug Resistant Organisms: None Reported Past Surgical History: Adenoidectomy, Back Surgery, Heart Catheterization, Hernia Repair, Joint Replacement, Orthopedic Surgery, Tonsillectomy Additional Past Surgical History / Comment(s): L knee replacement, back surgery x2-failed fusion and 2 rods in lower back, L/R cataract surgery, bilat. rib removal (cervical), carpal tunnel R wrist, colonoscopy, L elbow surgery, abdominal hernia repair, 3 R inguinal hernia repairs, L inguinal hernia repair, rectal cystectomy.pain pump(ms) implanted removed 11/06/2018 Past Anesthesia/Blood Transfusion Reactions: Previous Problems w/ Anesthesia Additional Past Anesthesia/Blood Transfusion Reaction / Comment(s): With first surgery became belligerent when waking up. Past Psychological History: No Psychological Hx Reported Smoking Status: Former smoker Past Alcohol Use History: None Reported Past Drug Use History: None Reported - Past Family History Mother Family Medical History: No Reported History Additional Family Medical History / Comment(s): Mother was healthy and lived to be 88 or 89yrs old. Father Family Medical History: Cancer Additional Family Medical History / Comment(s): Father of lung cancer in his early 70's. Medications and Allergies Home Medications Medication Instructions Recorded Confirmed Type Multivitamins, Thera [Multivitamin 1 tab PO DAILY 05/19/18 12/06/18 History (formulary)] Aspirin 81 mg PO DAILY 11/21/18 12/06/18 History Atorvastatin [Lipitor] 80 mg PO HS 11/21/18 12/06/18 History Esomeprazole Magnesium [NexIUM] 40 mg PO DAILY 11/21/18 12/06/18 History Ipratropium-Albuterol Nebulize 3 ml INHALATION RT-QID PRN 11/21/18 12/06/18 History [Duoneb 0.5 mg-3 mg/3 ml Soln] Gabapentin [Neurontin] 400 mg PO QID #120 cap 11/27/18 12/06/18 Rx HYDROcodone/APAP 10-325MG [[place] 1 tab PO Q6H PRN #30 tab 11/27/18 12/06/18 Rx 10-325] Cyclobenzaprine [Flexeril] 10 mg PO Q8H PRN 11/30/18 12/06/18 History Apixaban [Eliquis] 5 mg PO BID #20 tab 12/03/18 12/06/18 Rx Budesonide-Formot 160-4.5 Mcg 2 puff INHALATION RT-BID #1 inhaler 12/03/18 12/06/18 Rx [Symbicort 160-4.5 Mcg Inhaler] Digoxin 250 mcg PO DAILY #10 tablet 12/03/18 12/06/18 Rx Diltiazem HCl 90 mg PO Q6H #40 tablet 12/03/18 12/06/18 Rx Metoprolol Tartrate [Lopressor] 100 mg PO Q6H #40 tablet 12/03/18 12/06/18 Rx Potassium Chloride ER [K-Dur 20] 20 meq PO BID #20 tab.er.prt 12/03/18 12/06/18 Rx Tamsulosin HCl [Flomax] 0.4 mg PO HS #20 capsule 12/03/18 12/06/18 Rx predniSONE 20 mg PO DAILY #10 tab 12/03/18 12/06/18 Rx Tiotropium 18 Mcg/Puff [Spiriva] 1 puff INHALATION RT-DAILY 12/06/18 12/06/18 History predniSONE See Taper PO DIRECTED 12/06/18 12/06/18 History Allergies Allergy/AdvReac Type Severity Reaction Status Date / Time montelukast sodium Allergy Itching Verified 12/06/18 18:34 [From [facility]] Physical Exam Vitals: Vital Signs Temp Pulse Pulse Resp BP BP Pulse Ox 12/07/18 12:30 98.8 F 84 18 137/68 97 12/07/18 11:34 76 12/07/18 11:22 72 12/07/18 08:24 76 12/07/18 08:15 97.4 F L 64 18 156/62 94 L 12/07/18 08:08 72 12/07/18 04:28 98.3 F 65 20 145/58 96 12/06/18 23:30 96 12/06/18 23:00 98.6 F 77 22 141/70 94 L 12/06/18 21:24 71 24 159/65 96 12/06/18 20:58 98.6 F 71 24 155/51 90 L 12/06/18 19:31 65 26 H 145/71 95 12/06/18 19:09 67 28 H 147/71 95 12/06/18 18:39 62 12/06/18 18:24 67 28 H 12/06/18 18:05 98.5 F 70 30 H 141/75 94 L Intake and Output 12/07/18 12/07/18 12/07/18 06:59 14:59 22:59 Intake Total 600 Balance 600 Intake: Oral 600 Other: Voiding Method Toilet # Voids 1 1 # Bowel Movements 1 Weight 99.9 kg GENERAL EXAM: Alert, pleasant, 68-year-old white male patient on 4 L of oxygen, comfortable in no apparent distress. HEAD: Normocephalic/atraumatic. EYES: Normal reaction of pupils, equal size. Conjunctiva pink, sclera white. NOSE: Clear with pink turbinates. THROAT: No erythema or exudates. MOUth: Oral pharyngeal candidiasis noted in the posterior oropharynx NECK: No masses, no JVD, no thyroid enlargement, no adenopathy. CHEST: No chest wall deformity. Symmetrical expansion. LUNGS: Equal air entry with scattered rhonchi, no significant wheezing CVS: Regular rate and rhythm, normal S1 and S2, no gallops, no murmurs, no rubs ABDOMEN: Soft, nontender. No hepatosplenomegaly, normal bowel sounds, no guarding or rigidity. EXTREMITIES: No clubbing, no edema, no cyanosis, 2+ pulses and upper and lower extremities. MUSCULOSKELETAL: Muscle strength and tone normal. SPINE: No scoliosis or deformity SKIN: No rashes CENTRAL NERVOUS SYSTEM: Alert and oriented -3. No focal deficits, tone is normal in all 4 extremities. PSYCHIATRIC: Alert and oriented -3. Appropriate affect. Intact judgment and insight. Results - Laboratory Findings CBC and BMP: 12/06/18 18:00 12/06/18 18:00 PT/INR, D-dimer PT 9.4 sec (9.0-12.0) 12/06/18 18:00 INR 0.8 (<1.2) 12/06/18 18:00 Abnormal lab findings: Abnormal Labs 12/06/18 12/06/18 12/06/18 18:00 18:00 18:00 WBC 12.2 H RBC 3.73 L Hgb 11.5 L Hct 36.1 L Neutrophils # 11.1 H Lymphocytes # 0.6 L APTT Carbon Dioxide 31 H Glucose 199 H Plasma Lactic Acid Isaac 3.6 H* Total Protein 5.6 L Albumin 3.0 L 12/06/18 12/06/18 12/07/18 18:00 21:50 11:22 WBC RBC Hgb Hct Neutrophils # Lymphocytes # APTT 20.7 L Carbon Dioxide Glucose Plasma Lactic Acid Isaac 4.5 H* 4.4 H* Total Protein Albumin - Diagnostic Findings Chest x-ray: report reviewed, image reviewed Additional studies: EKG reviewed Assessment and Plan Plan: Assessment: #1. Acute on chronic hypoxemic respiratory failure related to acute exacerbation of COPD #2. Retained foreign body in the nasoropharynx, a nasal trumpet was removed #3. Lactic acidemia, likely related to acute hypoxemia, not related to sepsis #4. Recent hospitalization for acute exacerbation of COPD, and patient was discharged home on 12/03/2018 #5. Paroxysmal atrial fibrillation, anticoagulated with Eliquis #6. Stage III COPD, on home oxygen, with underlying FEV1 of 1.59 L or 48% of predicted #7. History of CVA/TIA #8. Solitary lung nodule in the left upper lobe, measuring 1 cm, and the PET scan showed no suspicious uptake this is being followed with this CT chest every 6 months #9. Coronary artery disease #10. Hypertension, hyperlipidemia #11. Osteoarthritis #12. BPH #13. IBS #14. History of 53 years of smoking, of 2-3 packs a day, quit smoking in May 2018 #15. GERD/reflux Plan: Patient is doing much better, breathing easier, he is at his baseline as far as his breathing, and his oxygen is his home dose on 4 L. He is feeling much better since the removal of the nasal trumpet. He has had no fever or chills, chest x-ray did not show any focal pneumonia. From pulmonary perspective patient is stable for discharge home today, on the course of oral prednisone taper, he can continue on his Symbicort, we recommended Spiriva at discharge last time, continue on DuoNeb inhalation treatments, follow-up with Dr. Santiago in the office in 7-10 days I performed a history & physical examination of the patient and discussed their management with my nurse practitioner, Aicha Mosquera. I reviewed the nurse practitioner's note and agree with the documented findings and plan of care. Lung sounds are positive for some scattered rhonchi. The findings and the impression was discussed with the patient. I attest to the documentation by the nurse practitioner. Time with Patient: Greater than 30
== END 2018-12-07 16:05 | disposition home health service (06) ==
LOC: EC 17:59 → 3SCARD 20:11 → INTOOBSV 20:11
PROVIDERS: ADMIT Family Medicine; ATTEND Family Medicine
DX: J44.1 Chronic obstructive pulmonary disease with (acute) exacerbation (principal); J96.21 Acute and chronic respiratory failure with hypoxia; I48.0 Paroxysmal atrial fibrillation; I25.10 Atherosclerotic heart disease of native coronary artery without angina pectoris; E66.9 Obesity, unspecified; Z68.31 Body mass index [BMI] 31.0-31.9, adult; E78.5 Hyperlipidemia, unspecified; M19.90 Unspecified osteoarthritis, unspecified site; N40.0 Benign prostatic hyperplasia without lower urinary tract symptoms; D72.829 Elevated white blood cell count, unspecified; E87.2 Acidosis; I11.0 Hypertensive heart disease with heart failure; I50.20 Unspecified systolic (congestive) heart failure; T17.298A Other foreign object in pharynx causing other injury, initial encounter; B37.0 Candidal stomatitis; B37.89 Other sites of candidiasis; K58.9 Irritable bowel syndrome, unspecified; K21.9 Gastro-esophageal reflux disease without esophagitis; R42 Dizziness and giddiness; R91.1 Solitary pulmonary nodule; Z99.81 Dependence on supplemental oxygen; Z86.73 Personal history of transient ischemic attack (TIA), and cerebral infarction without residual deficits; Z87.01 Personal history of pneumonia (recurrent); Z87.891 Personal history of nicotine dependence; Z88.8 Allergy status to other drugs, medicaments and biological substances; Z79.899 Other long term (current) drug therapy; Z79.01 Long term (current) use of anticoagulants; Z79.51 Long term (current) use of inhaled steroids; Z79.82 Long term (current) use of aspirin; Z79.52 Long term (current) use of systemic steroids; Z80.1 Family history of malignant neoplasm of trachea, bronchus and lung
CPT/HCPCS: 42809; 96376; 96374; 96361; 99285; 36415; 94660; 94640 ×3; 94760; 93005; 83880; 80053; 82803; 83605 ×2; 83735; 84484; 85025; 85610; 85730; 87040; 71045; G0378 ×3; J2930 ×2

== ENCOUNTER 2018-12-10 10:53 | Emergency (ER) | payer MEDICARE, BC ==
[2018-12-10 11:03] VITALS: TEMP 98.3
--- NOTE | 2018-12-10 11:36 | ED ---
General Adult HPI <Avery Guerrero - Last Filed: 12/10/18 15:08> - General Source: patient Mode of arrival: wheelchair Limitations: no limitations <Lurdes Haro - Last Filed: 12/10/18 15:13> - General Chief complaint: Recheck/Abnormal Lab/Rx Stated complaint: Abnormal Labs Time Seen by Provider: 12/10/18 11:21 - History of Present Illness Initial comments: 68-year-old male patient with past medical history significant for COPD, CVA, CAD, hypertension presents to the emergency department today for evaluation of abnormal labs. Patient was discharged from the hospital 2 days ago after being admitted for hypoxic respiratory failure and lactic acidosis. Patient had repeat labs performed at his primary care physician's office yesterday and labs revealed an elevated lactic acid of 14. Patient states he is currently feeling well. Denies any fever or chills. Patient denies any recent rash, chest pain, abdominal pain, nausea, vomiting, diarrhea, constipation, hematochezia, melena, back pain, numbness, tingling, dizziness, weakness, hematuria, dysuria, urinary urgency, urinary frequency, headache, visual changes, or any other complaints. He states he is experiencing some generalized weakness and shortness of breath which he states is not unusual for him. He does wear 4L of oxygen continuously. (Lurdes Haro) - Related Data Home Medications Medication Instructions Recorded Confirmed Multivitamins, Thera [Multivitamin 1 tab PO DAILY 05/19/18 12/10/18 (formulary)] Aspirin 81 mg PO DAILY 11/21/18 12/10/18 Atorvastatin [Lipitor] 80 mg PO HS 11/21/18 12/10/18 Esomeprazole Magnesium [NexIUM] 40 mg PO DAILY 11/21/18 12/10/18 Ipratropium-Albuterol Nebulize 3 ml INHALATION RT-QID PRN 11/21/18 12/10/18 [Duoneb 0.5 mg-3 mg/3 ml Soln] Cyclobenzaprine [Flexeril] 10 mg PO Q8H PRN 11/30/18 12/10/18 Tiotropium 18 Mcg/Puff [Spiriva] 1 puff INHALATION RT-DAILY 12/06/18 12/10/18 Previous Rx's Medication Instructions Recorded Gabapentin [Neurontin] 400 mg PO QID #120 cap 11/27/18 HYDROcodone/APAP 10-325MG [[place] 1 tab PO Q6H PRN #30 tab 11/27/18 10-325] Apixaban [Eliquis] 5 mg PO BID #20 tab 12/03/18 Budesonide-Formot 160-4.5 Mcg 2 puff INHALATION RT-BID #1 inhaler 12/03/18 [Symbicort 160-4.5 Mcg Inhaler] Digoxin 250 mcg PO DAILY #10 tablet 12/03/18 Diltiazem HCl 90 mg PO Q6H #40 tablet 12/03/18 Metoprolol Tartrate [Lopressor] 100 mg PO Q6H #40 tablet 12/03/18 Potassium Chloride ER [K-Dur 20] 20 meq PO BID #20 tab.er.prt 12/03/18 Tamsulosin HCl [Flomax] 0.4 mg PO HS #20 capsule 12/03/18 predniSONE 20 mg PO DAILY #10 tab 12/03/18 Sodium Bicarbonate Tab 650 mg PO TID #12 tablet 12/10/18 Allergies Allergy/AdvReac Type Severity Reaction Status Date / Time montelukast sodium AdvReac Itching Verified 12/10/18 11:23 [From [facility]] Review of Systems ROS Other: All systems not noted in ROS Statement are negative. <Avery Guerrero - Last Filed: 12/10/18 15:08> ROS Other: All systems not noted in ROS Statement are negative. <Lurdes Haro - Last Filed: 12/10/18 15:13> ROS Statement: Those systems with pertinent positive or pertinent negative responses have been documented in the HPI. 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 History of Any Multi-Drug Resistant Organisms: None Reported Past Surgical History: Adenoidectomy, Back Surgery, Heart Catheterization, Hernia Repair, Joint Replacement, Orthopedic Surgery, Tonsillectomy Additional Past Surgical History / Comment(s): L knee replacement, back surgery x2-failed fusion and 2 rods in lower back, L/R cataract surgery, bilat. rib removal (cervical), carpal tunnel R wrist, colonoscopy, L elbow surgery, abdominal hernia repair, 3 R inguinal hernia repairs, L inguinal hernia repair, rectal cystectomy.pain pump(ms) implanted removed 11/06/2018 Past Anesthesia/Blood Transfusion Reactions: Previous Problems w/ Anesthesia Additional Past Anesthesia/Blood Transfusion Reaction / Comment(s): With first surgery became belligerent when waking up. Past Psychological History: No Psychological Hx Reported Past Alcohol Use History: None Reported, Occasional Past Drug Use History: None Reported - Past Family History Mother Family Medical History: No Reported History Additional Family Medical History / Comment(s): Mother was healthy and lived to be 88 or 89yrs old. Father Family Medical History: Cancer Additional Family Medical History / Comment(s): Father of lung cancer in his early 70's. <Lurdes Haro - Last Filed: 12/10/18 15:13> General Exam Limitations: no limitations General appearance: alert, in no apparent distress, other (Physical well- developed, elderly male patient in no acute distress. Vital signs upon presentation are temperature 98.3F, pulse 67, respirations 20, blood pressure 136/60, pulse ox 90% on 4 L nasal cannula.) Eye exam: Present: normal appearance, PERRL, EOMI. Absent: scleral icterus, conjunctival injection, periorbital swelling ENT exam: Present: normal exam, normal oropharynx, mucous membranes moist Respiratory exam: Present: decreased breath sounds. Absent: normal lung sounds bilaterally, respiratory distress, wheezes, rales, rhonchi, stridor Cardiovascular Exam: Present: regular rate, normal rhythm, normal heart sounds. Absent: systolic murmur, diastolic murmur, rubs, gallop, clicks GI/Abdominal exam: Present: soft, normal bowel sounds. Absent: distended, tenderness, guarding, rebound, rigid Neurological exam: Present: alert, oriented X3, CN II-XII intact Psychiatric exam: Present: normal affect, normal mood Skin exam: Present: warm, dry, intact, normal color. Absent: rash <Lurdes Haro - Last Filed: 12/10/18 15:13> Course <Avery Guerrero - Last Filed: 12/10/18 15:08> Vital Signs 12/10/18 12/10/18 12/10/18 10:58 11:57 13:00 Temperature 98.3 F Pulse Rate 67 63 68 Respiratory 20 28 H 28 H Rate Blood Pressure 136/60 144/59 156/98 O2 Sat by Pulse 90 L 93 L 95 Oximetry 12/10/18 14:11 Temperature Pulse Rate 66 Respiratory 30 H Rate Blood Pressure 152/60 O2 Sat by Pulse 95 Oximetry - Reevaluation(s) Reevaluation #1: 12/10/18 15:08 LAB RN supervision, I did a [id number] eval of the patient and discussed the findingswith him and his as well as with Dr. Suazo. The patient will be d/roman with out patient F/U in 4 days and rerun if any questions or problems. (Avery Guerrero) Medical Decision Making - Lab Data Result diagrams: 12/10/18 11:47 12/10/18 11:47 <Avery Guerrero - Last Filed: 12/10/18 15:08> - Lab Data Result diagrams: 12/10/18 11:47 12/10/18 11:47 - Radiology Data Radiology results: report reviewed, image reviewed <Lurdes Haro - Last Filed: 12/10/18 15:13> - Medical Decision Making 68-year-old male patient presents to the emergency department today for evaluation of abnormal labs. Patient was sent in for a lactic acid of 14. Physical examination is unremarkable. Lungs are diminished but this is chronic for the patient. He reports feeling well at this time. Labs reviewed and did reveal white blood cell count of 14.9, possibly reactive from steroid use. Lactic acid is 6.4. Potassium 5.7. Chest x-ray showed no acute cardio pulmonary process. Urinalysis is negative for any evidence of infection. Patient is afebrile vital signs are stable. Did discuss findings and results with the patient. My attending Dr. Guerrero was in to see and evaluate the patient. Dr. Guerrero did discuss the case with the patient's primary care physician Dr. Josep escalona who recommends starting a bicarbonate and discharge to follow-up in the office on Friday. Patient does feel comfortable with this plan. He does understand he is to return if he has any new, worsening, or concerning symptoms. Return parameters were discussed in detail. He verbalizes understanding and agrees with this plan. (Lurdes Haro) - Lab Data Lab Results 12/10/18 12/10/18 12/10/18 Range/Units 11:47 11:47 11:47 WBC 14.9 H (3.8-10.6) k/uL RBC 3.75 L (4.30-5.90) m/uL Hgb 11.1 L (13.0-17.5) gm/dL Hct 36.7 L (39.0-53.0) % MCV 97.8 (80.0-100.0) fL MCH 29.6 (25.0-35.0) pg MCHC 30.3 L (31.0-37.0) g/dL RDW 14.9 (11.5-15.5) % Plt Count 270 (150-450) k/uL Neutrophils % (Manual) 83 % Band Neutrophils % 3 % Lymphocytes % (Manual) 11 % Monocytes % (Manual) 2 % Metamyelocytes % 1 % Myelocytes % 2 % Other Cells % % Neutrophils # (Manual) 12.80 H (1.3-7.7) k/uL Lymphocytes # (Manual) 1.64 (1.0-4.8) k/uL Monocytes # (Manual) 0.30 (0-1.0) k/uL Metamyelocytes # (Man) 0.15 H (0) k/uL Myelocytes # (Manual) 0.30 H (0) k/uL Nucleated RBCs 0 (0-0) /100 WBC Differential Comment Hypochromasia Slight PT (9.0-12.0) sec INR (<1.2) APTT (22.0-30.0) sec Sodium 138 (137-145) mmol/L Potassium 5.7 H (3.5-5.1) mmol/L Chloride 99 (98-107) mmol/L Carbon Dioxide 34 H (22-30) mmol/L Anion Gap 5 mmol/L BUN 18 (9-20) mg/dL Creatinine 0.72 (0.66-1.25) mg/dL Est GFR (CKD-EPI)AfAm >90 (>60 ml/min/1.73 sqM) Est GFR (CKD-EPI)NonAf >90 (>60 ml/min/1.73 sqM) Glucose 110 H (74-99) mg/dL Plasma Lactic Acid Isaac 6.4 H* (0.7-2.0) mmol/L Calcium 10.1 (8.4-10.2) mg/dL Total Bilirubin 0.4 (0.2-1.3) mg/dL AST 29 (17-59) U/L ALT 46 (21-72) U/L Alkaline Phosphatase 92 (38-126) U/L Total Protein 5.4 L (6.3-8.2) g/dL Albumin 2.9 L (3.5-5.0) g/dL Urine Color Urine Appearance (Clear) Urine pH (5.0-8.0) Ur Specific [place] (1.001-1.035) Urine Protein (Negative) Urine Glucose (UA) (Negative) Urine Ketones (Negative) Urine Blood (Negative) Urine Nitrite (Negative) Urine Bilirubin (Negative) Urine Urobilinogen (<2.0) mg/dL Ur Leukocyte Esterase (Negative) 12/10/18 12/10/18 Range/Units 11:47 11:55 WBC (3.8-10.6) k/uL RBC (4.30-5.90) m/uL Hgb (13.0-17.5) gm/dL Hct (39.0-53.0) % MCV (80.0-100.0) fL MCH (25.0-35.0) pg MCHC (31.0-37.0) g/dL RDW (11.5-15.5) % Plt Count (150-450) k/uL Neutrophils % (Manual) % Band Neutrophils % % Lymphocytes % (Manual) % Monocytes % (Manual) % Metamyelocytes % % Myelocytes % % Other Cells % % Neutrophils # (Manual) (1.3-7.7) k/uL Lymphocytes # (Manual) (1.0-4.8) k/uL Monocytes # (Manual) (0-1.0) k/uL Metamyelocytes # (Man) (0) k/uL Myelocytes # (Manual) (0) k/uL Nucleated RBCs (0-0) /100 WBC Differential Comment Hypochromasia PT 9.6 (9.0-12.0) sec INR 0.9 (<1.2) APTT 18.9 L (22.0-30.0) sec Sodium (137-145) mmol/L Potassium (3.5-5.1) mmol/L Chloride (98-107) mmol/L Carbon Dioxide (22-30) mmol/L Anion Gap mmol/L BUN (9-20) mg/dL Creatinine (0.66-1.25) mg/dL Est GFR (CKD-EPI)AfAm (>60 ml/min/1.73 sqM) Est GFR (CKD-EPI)NonAf (>60 ml/min/1.73 sqM) Glucose (74-99) mg/dL Plasma Lactic Acid Isaac (0.7-2.0) mmol/L Calcium (8.4-10.2) mg/dL Total Bilirubin (0.2-1.3) mg/dL AST (17-59) U/L ALT (21-72) U/L Alkaline Phosphatase (38-126) U/L Total Protein (6.3-8.2) g/dL Albumin (3.5-5.0) g/dL Urine Color Yellow Urine Appearance Clear (Clear) Urine pH 5.5 (5.0-8.0) Ur Specific [place] 1.016 (1.001-1.035) Urine Protein Trace H (Negative) Urine Glucose (UA) Negative (Negative) Urine Ketones Negative (Negative) Urine Blood Negative (Negative) Urine Nitrite Negative (Negative) Urine Bilirubin Negative (Negative) Urine Urobilinogen <2.0 (<2.0) mg/dL Ur Leukocyte Esterase Negative (Negative) - Radiology Data Two-view x-ray of the chest is obtained. Report was reviewed in its entirety. Impression by Dr. Pinto shows chronic emphysematous change without acute pulmonary process. (Lurdes Haro) Disposition <Avery Guerrero - Last Filed: 12/10/18 15:08> Is patient prescribed a controlled substance at d/c from ED?: No Time of Disposition: 14:24 <Lurdes Haro - Last Filed: 12/10/18 15:13> Clinical Impression: Lactic acidosis Disposition: HOME SELF-CARE Condition: Good Additional Instructions: Your lactic acid is elevated. Today's result was 6.4. Follow up with Dr. Suazo on Friday as discussed. Take medication as directed. Return to the emergency department immediately for any new, worsening, or concerning symptoms. Prescriptions: Sodium Bicarbonate Tab 650 mg PO TID #12 tablet Referrals: David Suazo MD [Primary Care Provider] - 1-2 days
[2018-12-10] MEDS: SODIUM CHLORIDE 0.9% 500 ML 500 ML IV SCH ×2 (11:53→12:10)
[2018-12-10 12:07] LABS: HCT 36.7 % (39.0-53.0); HGB 11.1 gm/dL (13.0-17.5); Hypochromasia Slight; MCH 29.6 pg (25.0-35.0); MCHC 30.3 g/dL (31.0-37.0); MCV 97.8 fL (80.0-100.0); Mean Platelet Volume 7.4; Platelet Count 270 k/uL (150-450); RBC 3.75 m/uL (4.30-5.90); RDW 14.9 % (11.5-15.5); WBC 14.9 k/uL (3.8-10.6)
[2018-12-10 12:15] LABS: ALT 46 U/L (21-72); AST 29 U/L (17-59); Albumin 2.9 g/dL (3.5-5.0); Alkaline Phosphatase 92 U/L (38-126); Anion Gap 5 mmol/L; Blood Urea Nitrogen 18 mg/dL (9-20); Calcium 10.1 mg/dL (8.4-10.2); Carbon Dioxide 34 mmol/L (22-30); Chloride 99 mmol/L (98-107); Glucose 110 mg/dL (74-99); Potassium 5.7 mmol/L (3.5-5.1); Sodium 138 mmol/L (137-145); Total Bilirubin 0.4 mg/dL (0.2-1.3); Total Protein 5.4 g/dL (6.3-8.2)
[2018-12-10 12:33] LABS: INR 0.9 (<1.2); Prothrombin Time 9.6 sec (9.0-12.0)
[2018-12-10 12:34] LABS: Partial Thromboplastin Time 18.9 sec (22.0-30.0)
[2018-12-10 12:39] LABS: Band Neutrophils % 3 %; Lymphocytes # (M) 1.64 k/uL (1.0-4.8); Metamyelocytes # (M) 0.15 k/uL (0); Metamyelocytes % 1 %; Myelocytes % 2 %; Neutrophils % (M) 83 %; Nucleated Red Blood Cells 0 /100 WBC (0-0); Total Cells Counted 200
[2018-12-10 13:11] LABS: Appearance,Urine Clear (Clear); Bilirubin,Urine Negative (Negative); Blood,Urine Negative (Negative); Color,Urine Yellow; Glucose,Urine (UA) Negative (Negative); Ketones,Urine Negative (Negative); Leukocyte Esterase,Urine Negative (Negative); Nitrite,Urine Negative (Negative); PH, Urine 5.5 (5.0-8.0); Protein,Urine Trace (Negative); Specific Gravity,Urine 1.016 (1.001-1.035); Urobilinogen,Urine <2.0 mg/dL (<2.0)
--- NOTE | 2018-12-10 13:27 | XR ---
EXAMINATION TYPE: XR chest 2V DATE OF EXAM: 12/10/2018 COMPARISON: Chest CT November 22, 2018. Chest x-ray December 06, 2018. HISTORY: COPD. TECHNIQUE: Frontal and lateral views of the chest are obtained. FINDINGS: There is background chronic emphysematous change without suspicious focal air space opacit y, pleural effusion, or pneumothorax seen. The cardiac silhouette size is within normal limits. Th e osseous structures are intact. Known lateral left upper lobe nodule on CT less well seen on x-ray. IMPRESSION: Chronic emphysematous change without acute pulmonary process.
[2018-12-10 14:12] VITALS: PULSE 66
[2018-12-10] MEDS ORDERED: SODIUM BICARBONATE TAB 650 MG TAB PO STA (14:21)
[2018-12-10 15:28] VITALS: BP 163/73; RESP 22
== END 2018-12-10 15:26 | disposition home or self-care (01) ==
LOC: EC 10:53
DX: E87.2 Acidosis (principal); R53.1 Weakness; R06.02 Shortness of breath; I25.119 Atherosclerotic heart disease of native coronary artery with unspecified angina pectoris; J44.9 Chronic obstructive pulmonary disease, unspecified; K21.9 Gastro-esophageal reflux disease without esophagitis; K58.9 Irritable bowel syndrome, unspecified; E78.5 Hyperlipidemia, unspecified; M19.90 Unspecified osteoarthritis, unspecified site; N40.0 Benign prostatic hyperplasia without lower urinary tract symptoms; Z79.82 Long term (current) use of aspirin; Z79.899 Other long term (current) drug therapy; Z88.8 Allergy status to other drugs, medicaments and biological substances; Z95.818 Presence of other cardiac implants and grafts; Z96.652 Presence of left artificial knee joint; Z86.73 Personal history of transient ischemic attack (TIA), and cerebral infarction without residual deficits; Z99.81 Dependence on supplemental oxygen
CPT/HCPCS: 36415; 71046; 80053; 81003; 83605; 85025; 85610; 85730; 87040; 87086; 96360; 96361; 99284

== ENCOUNTER 2018-12-12 19:13 | Inpatient (IN) | payer MEDICARE, BC ==
[2018-12-12] MEDS ORDERED: MAGNESIUM SULFATE-D5W PMX 1 GM in DEXTROSE/WATER 1 100ML.BAG IVPB STA (19:17)
[2018-12-12] MEDS ORDERED: IPRATROPIUM-ALBUTEROL 3 ML NEB INHALATION STA (19:17)
[2018-12-12] MEDS ORDERED: methylPREDNISolone SOD SUCCI 125 MG/2 ML VIAL IV STA (19:17)
[2018-12-12] MEDS ORDERED: SODIUM CHLORIDE 0.9% 1,000 ML IV STA (19:17)
[2018-12-12 19:44] LABS: Basophils % (A) 0 %; Eosinophils % (A) 0 %; HGB 10.6 gm/dL (13.0-17.5); Hypochromasia Slight; Lymphocytes # (A) 0.7 k/uL (1.0-4.8); Lymphocytes % (A) 6 %; MCH 29.4 pg (25.0-35.0); MCHC 30.2 g/dL (31.0-37.0); MCV 97.3 fL (80.0-100.0); Mean Platelet Volume 7.1; Monocytes # (A) 0.4 k/uL (0-1.0); Monocytes % (A) 3 %; Neutrophils # (A) 10.6 k/uL (1.3-7.7); Neutrophils % (A) 89 %; Platelet Count 250 k/uL (150-450); RDW 14.7 % (11.5-15.5); WBC 11.9 k/uL (3.8-10.6)
--- NOTE | 2018-12-12 19:46 | ED ---
SOB HPI - General Chief Complaint: Shortness of Breath Stated Complaint: Difficulty Breathing Time Seen by Provider: 12/12/18 19:13 Source: patient, EMS, RN notes reviewed Mode of arrival: EMS Limitations: no limitations - History of Present Illness Initial Comments: This is a 68-year-old male history of respiratory failure recently as well as multiple medical problems who started developing shortness breath about one half hours prior to arrival. EMS was called he is found to have diffuse wheezing with marked demineralization of his pulse oximetry in spite of home oxygen. His saturation 60% initially when his O2 was increased to 5 L/m with 80%. Recent fevers chills nausea vomiting sweats or other symptoms he did require BiPAP and route. He is feeling somewhat improved after the initial treatment. MD Complaint: shortness of breath - Related Data Home Medications Medication Instructions Recorded Confirmed Multivitamins, Thera [Multivitamin 1 tab PO DAILY 05/19/18 12/12/18 (formulary)] Aspirin 81 mg PO DAILY 11/21/18 12/12/18 Atorvastatin [Lipitor] 80 mg PO HS 11/21/18 12/12/18 Esomeprazole Magnesium [NexIUM] 40 mg PO DAILY 11/21/18 12/12/18 Ipratropium-Albuterol Nebulize 3 ml INHALATION RT-QID PRN 11/21/18 12/12/18 [Duoneb 0.5 mg-3 mg/3 ml Soln] Cyclobenzaprine [Flexeril] 10 mg PO Q8H PRN 11/30/18 12/12/18 Tiotropium 18 Mcg/Puff [Spiriva] 1 puff INHALATION RT-DAILY 12/06/18 12/12/18 Previous Rx's Medication Instructions Recorded Gabapentin [Neurontin] 400 mg PO QID #120 cap 11/27/18 HYDROcodone/APAP 10-325MG [[place] 1 tab PO Q6H PRN #30 tab 11/27/18 10-325] Apixaban [Eliquis] 5 mg PO BID #20 tab 12/03/18 Budesonide-Formot 160-4.5 Mcg 2 puff INHALATION RT-BID #1 inhaler 12/03/18 [Symbicort 160-4.5 Mcg Inhaler] Digoxin 250 mcg PO DAILY #10 tablet 12/03/18 Diltiazem HCl 90 mg PO Q6H #40 tablet 12/03/18 Metoprolol Tartrate [Lopressor] 100 mg PO Q6H #40 tablet 12/03/18 Potassium Chloride ER [K-Dur 20] 20 meq PO BID #20 tab.er.prt 12/03/18 Tamsulosin HCl [Flomax] 0.4 mg PO HS #20 capsule 12/03/18 predniSONE 20 mg PO DAILY #10 tab 12/03/18 Sodium Bicarbonate Tab 650 mg PO TID #12 tablet 12/10/18 Allergies Allergy/AdvReac Type Severity Reaction Status Date / Time montelukast sodium AdvReac Itching Verified 12/12/18 20:16 [From [facility]] Review of Systems ROS Statement: Those systems with pertinent positive or pertinent negative responses have been documented in the HPI. ROS Other: All systems not noted in ROS Statement are negative. 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 History of Any Multi-Drug Resistant Organisms: None Reported Past Surgical History: Adenoidectomy, Back Surgery, Heart Catheterization, Herni a Repair, Joint Replacement, Orthopedic Surgery, Tonsillectomy Additional Past Surgical History / Comment(s): L knee replacement, back surgery x2-failed fusion and 2 rods in lower back, L/R cataract surgery, bilat. rib removal (cervical), carpal tunnel R wrist, colonoscopy, L elbow surgery, abdominal hernia repair, 3 R inguinal hernia repairs, L inguinal hernia repair, rectal cystectomy.pain pump(ms) implanted removed 11/06/2018 Past Anesthesia/Blood Transfusion Reactions: Previous Problems w/ Anesthesia Additional Past Anesthesia/Blood Transfusion Reaction / Comment(s): With first surgery became belligerent when waking up. Past Psychological History: No Psychological Hx Reported Smoking Status: Former smoker Past Alcohol Use History: None Reported, Occasional Past Drug Use History: None Reported - Past Family History Mother Family Medical History: No Reported History Additional Family Medical History / Comment(s): Mother was healthy and lived to be 88 or 89yrs old. Father Family Medical History: Cancer Additional Family Medical History / Comment(s): Father of lung cancer in his early 70's. General Exam - General Exam Comments Initial Comments: This a well-developed well-nourished awake alert male who is in evident respiratory distress on a BiPAP Limitations: no limitations General appearance: alert, anxious, in distress Head exam: Present: atraumatic, normocephalic, normal inspection Eye exam: Present: normal appearance, PERRL, EOMI. Absent: scleral icterus, conjunctival injection, periorbital swelling ENT exam: Present: normal exam, mucous membranes moist Neck exam: Present: normal inspection, full ROM, other (No stridor JVD or bruits). Absent: tenderness, meningismus, lymphadenopathy Respiratory exam: Present: respiratory distress, wheezes, rhonchi, decreased breath sounds. Absent: rales, stridor Cardiovascular Exam: Present: regular rate, normal rhythm, normal heart sounds. Absent: systolic murmur, diastolic murmur, rubs, gallop, clicks GI/Abdominal exam: Present: soft, normal bowel sounds. Absent: distended, tenderness, guarding, rebound, rigid Extremities exam: Present: normal inspection, full ROM, normal capillary refill. Absent: tenderness, pedal edema, joint swelling, calf tenderness Back exam: Present: normal inspection Neurological exam: Present: alert, oriented X3, CN II-XII intact Psychiatric exam: Present: normal affect, normal mood Skin exam: Present: warm, dry, intact, normal color. Absent: rash Course Vital Signs 12/12/18 12/12/18 12/12/18 19:17 19:34 19:50 Temperature 97.4 F L Pulse Rate 74 74 68 Respiratory 19 Rate Blood Pressure 118/51 O2 Sat by Pulse 86 L Oximetry 12/12/18 12/12/18 19:54 20:43 Temperature Pulse Rate 67 66 Respiratory 21 21 Rate Blood Pressure 113/61 116/41 O2 Sat by Pulse 97 96 Oximetry - Reevaluation(s) Reevaluation #1: 12/12/18 21:28 I did reevaluate patient several occasions he is demonstrating some improvement treatment. He still requires BiPAP at this time Medical Decision Making - Medical Decision Making Patient did demonstrate evidence of acute respiratory failure in distress she is improving with current treatments. His saturation is improved into the low 90s. He will be admitted I did discuss case with Dr. Jung doctor. Dr. Mendenhall will be consulted - Lab Data Result diagrams: 12/12/18 19:25 12/12/18 19:25 Lab Results 12/12/18 12/12/18 12/12/18 Range/Units 19:25 19:25 19:25 WBC 11.9 H (3.8-10.6) k/uL RBC 3.60 L (4.30-5.90) m/uL Hgb 10.6 L (13.0-17.5) gm/dL Hct 35.0 L (39.0-53.0) % MCV 97.3 (80.0-100.0) fL MCH 29.4 (25.0-35.0) pg MCHC 30.2 L (31.0-37.0) g/dL RDW 14.7 (11.5-15.5) % Plt Count 250 (150-450) k/uL Neutrophils % 89 % Lymphocytes % 6 % Monocytes % 3 % Eosinophils % 0 % Basophils % 0 % Neutrophils # 10.6 H (1.3-7.7) k/uL Lymphocytes # 0.7 L (1.0-4.8) k/uL Monocytes # 0.4 (0-1.0) k/uL Eosinophils # 0.0 (0-0.7) k/uL Basophils # 0.0 (0-0.2) k/uL Hypochromasia Slight PT 9.4 (9.0-12.0) sec INR 0.8 (<1.2) APTT 20.3 L (22.0-30.0) sec D-Dimer 0.47 (<0.60) mg/L FEU Sodium 137 (137-145) mmol/L Potassium 5.2 H (3.5-5.1) mmol/L Chloride 96 L (98-107) mmol/L Carbon Dioxide 37 H (22-30) mmol/L Anion Gap 4 mmol/L BUN 17 (9-20) mg/dL Creatinine 0.99 (0.66-1.25) mg/dL Est GFR (CKD-EPI)AfAm 89 (>60 ml/min/1.73 sqM) Est GFR (CKD-EPI)NonAf 77 (>60 ml/min/1.73 sqM) Glucose 140 H (74-99) mg/dL Calcium 9.3 (8.4-10.2) mg/dL Magnesium 2.1 (1.6-2.3) mg/dL Total Bilirubin 0.5 (0.2-1.3) mg/dL AST 43 (17-59) U/L ALT 75 H (21-72) U/L Alkaline Phosphatase 99 (38-126) U/L Creatine Kinase 22 L (55-170) U/L Troponin I (0.000-0.034) ng/mL NT-Pro-B Natriuret Pep pg/mL Total Protein 5.4 L (6.3-8.2) g/dL Albumin 2.9 L (3.5-5.0) g/dL Digoxin 1.4 ng/mL 12/12/18 12/12/18 Range/Units 19:25 19:25 WBC (3.8-10.6) k/uL RBC (4.30-5.90) m/uL Hgb (13.0-17.5) gm/dL Hct (39.0-53.0) % MCV (80.0-100.0) fL MCH (25.0-35.0) pg MCHC (31.0-37.0) g/dL RDW (11.5-15.5) % Plt Count (150-450) k/uL Neutrophils % % Lymphocytes % % Monocytes % % Eosinophils % % Basophils % % Neutrophils # (1.3-7.7) k/uL Lymphocytes # (1.0-4.8) k/uL Monocytes # (0-1.0) k/uL Eosinophils # (0-0.7) k/uL Basophils # (0-0.2) k/uL Hypochromasia PT (9.0-12.0) sec INR (<1.2) APTT (22.0-30.0) sec D-Dimer (<0.60) mg/L FEU Sodium (137-145) mmol/L Potassium (3.5-5.1) mmol/L Chloride (98-107) mmol/L Carbon Dioxide (22-30) mmol/L Anion Gap mmol/L BUN (9-20) mg/dL Creatinine (0.66-1.25) mg/dL Est GFR (CKD-EPI)AfAm (>60 ml/min/1.73 sqM) Est GFR (CKD-EPI)NonAf (>60 ml/min/1.73 sqM) Glucose (74-99) mg/dL Calcium (8.4-10.2) mg/dL Magnesium (1.6-2.3) mg/dL Total Bilirubin (0.2-1.3) mg/dL AST (17-59) U/L ALT (21-72) U/L Alkaline Phosphatase (38-126) U/L Creatine Kinase (55-170) U/L Troponin I 0.044 H* (0.000-0.034) ng/mL NT-Pro-B Natriuret Pep 1460 pg/mL Total Protein (6.3-8.2) g/dL Albumin (3.5-5.0) g/dL Digoxin ng/mL - EKG Data -: EKG Interpreted by Me EKG shows normal: sinus rhythm (Neuro sinus rhythm rate is 71. Interval 162 QRS 82 QT since QTC 374/[address]-T wave changes.) - Radiology Data Radiology results: report reviewed (I did review the imaging and report x-rays limited at this time with no definite new findings), image reviewed Critical Care Time Critical Care Time: Yes Critical Care Time: 31 minutes of critical care time which includes a prescription History physical labs x-rays multiple reevaluation the patient to responsive therapy review of old charting was available discussed with the patient and family admission orders and documentation of the above Disposition Clinical Impression: Acute exacerbation of chronic obstructive airways disease, Adult respiratory distress syndrome, Acute respiratory failure, Elevated troponin, Hypoxemia Disposition: ADMITTED IP TO THIS HOSP Condition: Serious Referrals: David Suazo MD [Primary Care Provider] - 1-2 days
[2018-12-12 19:56] LABS: Albumin 2.9 g/dL (3.5-5.0); Calcium 9.3 mg/dL (8.4-10.2); Digoxin 1.4 ng/mL; Magnesium 2.1 mg/dL (1.6-2.3); Potassium 5.2 mmol/L (3.5-5.1); Total Bilirubin 0.5 mg/dL (0.2-1.3); Total Protein 5.4 g/dL (6.3-8.2)
[2018-12-12 20:03] LABS: D-Dimer 0.47 mg/L FEU (<0.60); INR 0.8 (<1.2); Partial Thromboplastin Time 20.3 sec (22.0-30.0); Prothrombin Time 9.4 sec (9.0-12.0)
--- NOTE | 2018-12-12 20:03 | XR ---
EXAMINATION TYPE: XR chest 1V DATE OF EXAM: 12/12/2018 COMPARISON: 12/10/2018 HISTORY: 68-year-old male difficulty in breathing, shortness of breath TECHNIQUE: Single frontal view of the chest is obtained. FINDINGS: Large patient body habitus limits assessment of the densities over the periphery of the lungs and lar ge panniculus obscuring the lung bases. Heart appears upper limits of normal in size. Mild diffuse in terstitial prominence likely chronic. Left base underpenetrated and not well assessed. IMPRESSION: Limited portable exam. For the limitations due to large patient body habitus. The lung bases in parti cular are partially obscured due to patient's panniculus. Suspect chronic changes. High quality PA an d lateral views can be obtained when patient able.
[2018-12-12] MEDS ORDERED: FUROSEMIDE 10 MG/ML 4 ML VIAL IV STA (20:25)
[2018-12-12] MEDS ORDERED: DILTIAZEM ORAL 30 MG TAB PO SCH (21:45)
[2018-12-12] MEDS: GABAPENTIN 400 MG CAP PO SCH (22:23)
[2018-12-12] MEDS: METOPROLOL TARTRATE 50 MG TAB PO SCH (22:24)
--- NOTE | 2018-12-12 23:05 | P.HPIM ---
History of Present Illness H&P Date: 12/12/18 Chief Complaint: shortness of breath 68-year-old man with history of paroxysmal A. fib on Eliquis, CHF, chronic hypoxic respiratory failure secondary COPD on 4 L oxygen Patient presented today due to sudden onset shortness of breath patient was doing well up until after dinner when he didn't feel well he felt slight discomfort in his chest and ask his check his oxygen when they found her to be in the low 60% for which she asked for a bump in his oxygen supply from 4 L to 5 L/m and that didn't help sulfa problem patient denies any overt coughing or chest pain at that point he just felt uncomfortable and was worried due to his low oxygen level and decided come to the hospital. Patient was recently admitted for COPD exacerbation where he also found to have foreign body in his oropharynx that was removed. Patient was discharged on tapering dose of steroids and he was still taking prednisone by mouth 10 mg daily. Patient otherwise denies any fevers or chills denies any hemoptysis denies any history of CAD or stents denies any abdominal pain diarrhea nausea or vomiting. In the ED he was found to be wheezing for which she was started on breathing treatment and he was also found to have slightly swollen legs for which she was given Lasix. Patient indicated that his weight has been stable and she doesn't think that he retained any fluids so far and there've been checking his weight daily. He reports that he's been compliant with medications. In the ED when I evaluated the patient he was on BiPAP couldn't give me much history most of the history above was obtained by talking to the at bedside. Review of Systems Pertinent positives as noted in HPI. All other systems were reviewed and are negative Past Medical History Past Medical History: Coronary Artery Disease (CAD), Chest Pain / Angina, COPD, CVA/TIA, Eye Disorder, GERD/Reflux, Hyperlipidemia, Hypertension, Osteoarthritis (OA), Prostate Disorder Additional Past Medical History / Comment(s): BPH, 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 History of Any Multi-Drug Resistant Organisms: None Reported Past Surgical History: Adenoidectomy, Back Surgery, Heart Catheterization, Hernia Repair, Joint Replacement, Orthopedic Surgery, Tonsillectomy Additional Past Surgical History / Comment(s): L knee replacement, back surgery x2-failed fusion and 2 rods in lower back, L/R cataract surgery, bilat. rib removal (cervical), carpal tunnel R wrist, colonoscopy, L elbow surgery, abdominal hernia repair, 3 R inguinal hernia repairs, L inguinal hernia repair, rectal cystectomy.pain pump(ms) implanted removed 11/06/2018 Past Anesthesia/Blood Transfusion Reactions: Previous Problems w/ Anesthesia Additional Past Anesthesia/Blood Transfusion Reaction / Comment(s): With first surgery became belligerent when waking up. Past Psychological History: No Psychological Hx Reported Smoking Status: Former smoker Past Alcohol Use History: None Reported, Occasional Past Drug Use History: None Reported - Past Family History Mother Family Medical History: No Reported History Additional Family Medical History / Comment(s): Mother was healthy and lived to be 88 or 89yrs old. Father Family Medical History: Cancer Additional Family Medical History / Comment(s): Father of lung cancer in his early 70's. Medications and Allergies Home Medications Medication Instructions Recorded Confirmed Type Multivitamins, Thera [Multivitamin 1 tab PO DAILY 05/19/18 12/12/18 History (formulary)] Aspirin 81 mg PO DAILY 11/21/18 12/12/18 History Atorvastatin [Lipitor] 80 mg PO HS 11/21/18 12/12/18 History Esomeprazole Magnesium [NexIUM] 40 mg PO DAILY 11/21/18 12/12/18 History Ipratropium-Albuterol Nebulize 3 ml INHALATION RT-QID PRN 11/21/18 12/12/18 History [Duoneb 0.5 mg-3 mg/3 ml Soln] Gabapentin [Neurontin] 400 mg PO QID #120 cap 11/27/18 12/12/18 Rx HYDROcodone/APAP 10-325MG [[place] 1 tab PO Q6H PRN #30 tab 11/27/18 12/12/18 Rx 10-325] Cyclobenzaprine [Flexeril] 10 mg PO Q8H PRN 11/30/18 12/12/18 History Apixaban [Eliquis] 5 mg PO BID #20 tab 12/03/18 12/12/18 Rx Budesonide-Formot 160-4.5 Mcg 2 puff INHALATION RT-BID #1 inhaler 05/02/19 05/11/19 Rx [Symbicort 160-4.5 Mcg Inhaler] Digoxin 250 mcg PO DAILY #10 tablet 12/03/18 12/12/18 Rx Diltiazem HCl 90 mg PO Q6H #40 tablet 12/03/18 12/12/18 Rx Metoprolol Tartrate [Lopressor] 100 mg PO Q6H #40 tablet 12/03/18 12/12/18 Rx Potassium Chloride ER [K-Dur 20] 20 meq PO BID #20 tab.er.prt 12/03/18 12/12/18 Rx Tamsulosin HCl [Flomax] 0.4 mg PO HS #20 capsule 12/03/18 12/12/18 Rx predniSONE 20 mg PO DAILY #10 tab 12/03/18 12/12/18 Rx Tiotropium 18 Mcg/Puff [Spiriva] 1 puff INHALATION RT-DAILY 12/06/18 12/12/18 History Sodium Bicarbonate Tab 650 mg PO TID #12 tablet 12/10/18 12/12/18 Rx Allergies Allergy/AdvReac Type Severity Reaction Status Date / Time montelukast sodium AdvReac Itching Verified 12/12/18 20:16 [From [facility]] Physical Exam Vitals: Vital Signs Temp Pulse Resp BP Pulse Ox 12/12/18 20:43 66 21 116/41 96 12/12/18 19:54 67 21 113/61 97 12/12/18 19:50 68 12/12/18 19:34 74 12/12/18 19:17 97.4 F L 74 19 118/51 86 L Intake and Output 12/12/18 12/12/18 12/12/18 06:59 14:59 22:59 Other: Weight 103.419 kg Constitutional: No acute distress, patient is on BiPAP and unable to talk clear sentences, otherwise he is very pleasant was not date with his head to confirm the history provided by his Eyes: Anicteric sclerae, moist conjunctiva, no lid-lag Pupils equal round reactive to light ENMT: NC/AT Oropharynx clear, no erythema, or exudates Neck: Supple, FROM, no masses, or JVD No carotid bruits No thyromegaly Lungs: Good breath sounds bilaterally prolonged expiratory phase no wheezing. Inspiratory rales at lung bases bilaterally Clear to percussion Normal respiratory effort, no accessory muscle use Cardiovascular: Heart regular in rate and rhythm, No murmurs, gallops, or rubs +1 bilateral peripheral edema Abdominal: Soft, healing scar of recent surgical removal of pain pump from the left side of the belly no erythema no induration no drainage Nontender, no guarding, rebound or rigidity Abdomen moving with respiration Normoactive bowel sounds No hepatomegaly, No splenomegaly No palpable mass No abdominal wall hernia noted Skin: Normal temperature, tone, texture, turgor No induration No subcutaneous nodules No rash, lesions No ulcers Extremities: No digital cyanosis No clubbing Pedal pulses intact and symmetrical Radial pulses intact and symmetrical No calf tenderness Psychiatric: Alert and oriented to person, place and time Appropriate affect fair judgment Neuro Muscles Strength 5/5 in all 4 extremities Sensation to light touch grossly present throughout Cranial nerves II-XII grossly intact No focal sensory deficits Lymphatics: no palpable cervical or supraclavicular , or inguinal lymph nodes Results CBC & Chem 7: 12/12/18 19:25 12/12/18 19:25 Labs: Abnormal Lab Results - Last 24 Hours (Table) 12/12/18 12/12/18 12/12/18 Range/Units 19:25 19:25 19:25 WBC 11.9 H (3.8-10.6) k/uL RBC 3.60 L (4.30-5.90) m/uL Hgb 10.6 L (13.0-17.5) gm/dL Hct 35.0 L (39.0-53.0) % MCHC 30.2 L (31.0-37.0) g/dL Neutrophils # 10.6 H (1.3-7.7) k/uL Lymphocytes # 0.7 L (1.0-4.8) k/uL APTT 20.3 L (22.0-30.0) sec Potassium 5.2 H (3.5-5.1) mmol/L Chloride 96 L (98-107) mmol/L Carbon Dioxide 37 H (22-30) mmol/L Glucose 140 H (74-99) mg/dL ALT 75 H (21-72) U/L Creatine Kinase 22 L (55-170) U/L Troponin I (0.000-0.034) ng/mL Total Protein 5.4 L (6.3-8.2) g/dL Albumin 2.9 L (3.5-5.0) g/dL 12/12/18 Range/Units 19:25 WBC (3.8-10.6) k/uL RBC (4.30-5.90) m/uL Hgb (13.0-17.5) gm/dL Hct (39.0-53.0) % MCHC (31.0-37.0) g/dL Neutrophils # (1.3-7.7) k/uL Lymphocytes # (1.0-4.8) k/uL APTT (22.0-30.0) sec Potassium (3.5-5.1) mmol/L Chloride (98-107) mmol/L Carbon Dioxide (22-30) mmol/L Glucose (74-99) mg/dL ALT (21-72) U/L Creatine Kinase (55-170) U/L Troponin I 0.044 H* (0.000-0.034) ng/mL Total Protein (6.3-8.2) g/dL Albumin (3.5-5.0) g/dL Assessment and Plan Assessment: 68-year-old male with history of CHF chronic hypoxic respiratory failure on 4 L home oxygen A. fib on Eliquis admitted as an inpatient with anticipated length of stay more than 48 hours due to worsening hypoxemia and shortness of breath at home despite being on tapering dose of steroids from his recent discharge for COPD. Patient was also found to have slightly elevated troponin however lower than his baseline during his most recent hospitalization. Patient is known to have nonsignificant CAD of around 30% blockages in one of his coronary arteries no history of stents. Patient denies any chest pain but reports some chest discomfort which she thought was related to the hypoxia currently resolved. Patient also found to have some bilateral leg edema and inspiratory rales suggestive of maybe some congestion for which she started on Lasix Plan: Acute on chronic hypoxic respiratory failure secondary multifactorial to COPD exacerbation, Mild exacerbation of diastolic CHF Acute COPD exacerbation despite tapering dose of steroids Hyperkalemia Elevated troponins and rule out ACS Discontinue IV fluids Start patient on Lasix 40 mg IV twice a day Continue with BiPAP Systemic steroids IV Solu-Medrol DuoNeb's when necessary Continue home breathing treatments Daily weights Monitor troponins Cardiac monitoring Cardiology consult Monitor hyperkalemia, currently very mild anticipate Lasix will lower the levels hypertension History of CVA Chronic conditions Paroxysmal A. fib on Eliquis Hypertension History of CVA Chronic anemia DVT prophylaxis patient on Eliquis Preformed a thorough record review from recent hospitalization COPD exacerbation and removal of foreign body from his oropharynx Surrogate decision-maker: Patient CODE STATUS: Full code Discussed with: Patient, ER, RN Anticipated discharge: 48-[address]: Home A total of 60 minutes was spent on the care of this complex patient more than 50% of the time was spent in counseling and care coordination.
[2018-12-12] MEDS: IPRATROPIUM-ALBUTEROL 3 ML NEB INHALATION SCH (23:16)
[2018-12-13] MEDS: SODIUM CHLORIDE 0.9% 1,000 ML IV SCH ×2 (00:06→22:13)
[2018-12-13 00:20] LABS: Glucose,Whole Blood 247 mg/dL (75-99)
[2018-12-13] MEDS: SODIUM BICARBONATE TAB 650 MG TAB PO SCH ×4 (00:57→22:08)
[2018-12-13] MEDS: HYDROcodone/APAP 10-325MG 1 EACH TAB PO PRN ×2 (00:57→20:07)
[2018-12-13] MEDS: methylPREDNISolone SOD SUCCI 125 MG/2 ML VIAL IV SCH ×4 (00:58→18:36)
[2018-12-13] MEDS: INSULIN ASPART (NovoLOG) 100 UNIT/ML VIAL SQ SCH ×5 (01:03→22:13)
[2018-12-13 01:05] LABS: Glucose,Whole Blood 168 mg/dL (75-99)
[2018-12-13] MEDS: IPRATROPIUM-ALBUTEROL 3 ML NEB INHALATION SCH ×6 (03:11→23:30)
[2018-12-13 03:27] LABS: Basophils % (A) 0 %; Eosinophils % (A) 0 %; HCT 34.1 % (39.0-53.0); HGB 10.4 gm/dL (13.0-17.5); Hypochromasia Slight; Lymphocytes # (A) 0.5 k/uL (1.0-4.8); Lymphocytes % (A) 5 %; MCH 29.5 pg (25.0-35.0); MCHC 30.4 g/dL (31.0-37.0); MCV 97.2 fL (80.0-100.0); Mean Platelet Volume 6.7; Monocytes # (A) 0.2 k/uL (0-1.0); Monocytes % (A) 2 %; Neutrophils % (A) 93 %; Platelet Count 233 k/uL (150-450); RBC 3.51 m/uL (4.30-5.90); RDW 14.8 % (11.5-15.5); WBC 10.8 k/uL (3.8-10.6)
[2018-12-13 03:33] LABS: ALT 74 U/L (21-72); AST 36 U/L (17-59); Alkaline Phosphatase 86 U/L (38-126); Anion Gap 4 mmol/L; Blood Urea Nitrogen 19 mg/dL (9-20); Calcium 9.2 mg/dL (8.4-10.2); Carbon Dioxide 39 mmol/L (22-30); Chloride 93 mmol/L (98-107); Glucose 130 mg/dL (74-99); Potassium 4.6 mmol/L (3.5-5.1); Sodium 136 mmol/L (137-145); Total Bilirubin 0.5 mg/dL (0.2-1.3); Total Protein 5.5 g/dL (6.3-8.2)
[2018-12-13] MEDS: METOPROLOL TARTRATE 50 MG TAB PO SCH ×4 (04:28→22:07)
[2018-12-13] MEDS: DILTIAZEM ORAL 30 MG TAB PO SCH ×3 (06:17→18:36)
[2018-12-13] MEDS: SYMBICORT 160-4.5 MCG INHALER INHALATION SCH ×2 (07:05→20:19)
[2018-12-13] MEDS: PANTOPRAZOLE 40 MG TABLET PO SCH (07:14)
[2018-12-13 07:18] LABS: Glucose,Whole Blood 215 mg/dL (75-99)
[2018-12-13] MEDS ORDERED: ALBUTEROL NEBULIZED 2.5 MG/3 ML INHALATION PRN (07:48)
[2018-12-13] MEDS ORDERED: IPRATROPIUM 0.5 MG/2.5 ML NEBU INHALATION SCH (08:00)
[2018-12-13] MEDS ORDERED: POTASSIUM CHLORIDE ER 20 MEQ TAB.ER PO SCH (09:00)
[2018-12-13] MEDS: MULTIVITAMINS, THERA 1 EACH TAB PO SCH (09:20)
[2018-12-13] MEDS: DIGOXIN 250 MCG TAB PO SCH (09:20)
[2018-12-13] MEDS: FUROSEMIDE 10 MG/ML 4 ML VIAL IV SCH ×2 (09:20→20:07)
[2018-12-13] MEDS: GABAPENTIN 400 MG CAP PO SCH ×4 (09:20→22:08)
[2018-12-13] MEDS: ASPIRIN 81 MG PO SCH (09:20)
[2018-12-13] MEDS: APIXABAN 5 MG TAB PO SCH ×2 (09:20→20:07)
--- NOTE | 2018-12-13 10:03 | P.CNPUL ---
History of Present Illness Consult date: 12/13/18 Requesting physician: Sierra Lindquist Reason for consult: dyspnea Chief complaint: Shortness of breath History of present illness: This is a 68-year-old white male with history of multiple medical problems including COPD, he has at least a [id number] smoking history, quit smoking in May of 2018. Patient had multiple admissions over the last few months for intermittent episodes of shortness of breath related to COPD and related to his chronic diastolic congestive heart failure. Patient was recently in the hospital for shortness of breath, and he was found to have a nasal trumpet/fo reign body in his oropharynx, and it was removed by the ER physician upon presentation early in the week. Patient was discharged home and he was feeling fine. Yesterday patient had relatively one-day history of shortness of breath after dinner. [place] some discomfort in the chest, and he was short of breath. He is normally on oxygen, and he increase his oxygen from 4 L to 5 L, did not seem to help much, hence the patient was brought into the ER. His workup in the ER was basically nondiagnostic, normal CBC noted, normal basic metabolic profile was also noted. Troponin was borderline elevated. Chest x-ray showed minimal basilar atelectasis, no clear-cut evidence of congestive heart failure or pneumonia. The quality of the chest x-ray was relatively poor. Patient had a normal d-dimer. Hence it was felt that from embolic disease is extremely unlikely with normal d-dimer. BNP level was a bit elevated, troponin was also elevated. Patient was given bronchodilators, steroids, diuretics, and today upon my evaluation the patient is feeling already better. Hardly any cough no wheezing, no shortness of breath, remains on few liters nasal cannula. Review of Systems Constitutional: Denies weight loss, fevers chills, night sweats. Eyes: Denies diplopia blurred vision. Ears: Denies earache nose, mouth and throat: Denies sore throat, no nasal discharge, . Cardiovascular: Presently denies any chest pain, no palpitations, no orthopnea, no PND. Respiratory: As noted in HPI. Mostly shortness of breath, improved since admission. Gastrointestinal: Has nausea vomiting abdominal pain melena or hematemesis. Genitourinary: Denied dysuria frequency urgency. Musculoskeletal: Denies arthralgia or myalgia. Integumentary: Denies any rashes Neurological: No headache no blurred vision no dizziness.. Psychiatric: Denies symptoms of active depression Endocrine: Denies heat or cold intolerance. Hematologic: Denies clotting bleeding or bruising. 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 History of Any Multi-Drug Resistant Organisms: None Reported Past Surgical History: Adenoidectomy, Back Surgery, Heart Catheterization, Hernia Repair, Joint Replacement, Orthopedic Surgery, Tonsillectomy Additional Past Surgical History / Comment(s): L knee replacement, back surgery x3-failed fusion and 2 rods in lower back, L/R cataract surgery, bilat. rib removal (cervical), carpal tunnel R wrist, colonoscopy, L elbow surgery, abdominal hernia repair, 3 R inguinal hernia repairs, L inguinal hernia repair, rectal cystectomy.pain pump(ms) implanted removed 11/06/2018 Past Anesthesia/Blood Transfusion Reactions: Previous Problems w/ Anesthesia Additional Past Anesthesia/Blood Transfusion Reaction / Comment(s): With first surgery became belligerent when waking up. Past Psychological History: No Psychological Hx Reported Additional Psychological History / Comment(s): Pt resides with his spouse. He uses a cane to ambulate. has nebulizer He drives. 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 Smoking Status: Former smoker Past Alcohol Use History: None Reported, Occasional Additional Past Alcohol Use History / Comment(s): No smoking since May 2018 Past Drug Use History: None Reported - Past Family History Mother Family Medical History: No Reported History Additional Family Medical History / Comment(s): Mother was healthy and lived to be 88 or 89yrs old. Father Family Medical History: Cancer Additional Family Medical History / Comment(s): Father of lung cancer in his early 70's. Medications and Allergies Home Medications Medication Instructions Recorded Confirmed Type Multivitamins, Thera [Multivitamin 1 tab PO DAILY 05/19/18 12/12/18 History (formulary)] Aspirin 81 mg PO DAILY 11/21/18 12/12/18 History Atorvastatin [Lipitor] 80 mg PO HS 11/21/18 12/12/18 History Esomeprazole Magnesium [NexIUM] 40 mg PO DAILY 11/21/18 12/12/18 History Ipratropium-Albuterol Nebulize 3 ml INHALATION RT-QID PRN 11/21/18 12/12/18 History [Duoneb 0.5 mg-3 mg/3 ml Soln] Gabapentin [Neurontin] 400 mg PO QID #120 cap 11/27/18 12/12/18 Rx HYDROcodone/APAP 10-325MG [[place] 1 tab PO Q6H PRN #30 tab 11/27/18 12/12/18 Rx 10-325] Cyclobenzaprine [Flexeril] 10 mg PO Q8H PRN 11/30/18 12/12/18 History Apixaban [Eliquis] 5 mg PO BID #20 tab 12/03/18 12/12/18 Rx Budesonide-Formot 160-4.5 Mcg 2 puff INHALATION RT-BID #1 inhaler 12/03/18 12/12/18 Rx [Symbicort 160-4.5 Mcg Inhaler] Digoxin 250 mcg PO DAILY #10 tablet 12/03/18 12/12/18 Rx Diltiazem HCl 90 mg PO Q6H #40 tablet 12/03/18 12/12/18 Rx Metoprolol Tartrate [Lopressor] 100 mg PO Q6H #40 tablet 12/03/18 12/12/18 Rx Potassium Chloride ER [K-Dur 20] 20 meq PO BID #20 tab.er.prt 12/03/18 12/12/18 Rx Tamsulosin HCl [Flomax] 0.4 mg PO HS #20 capsule 12/03/18 12/12/18 Rx predniSONE 20 mg PO DAILY #10 tab 12/03/18 12/12/18 Rx Tiotropium 18 Mcg/Puff [Spiriva] 1 puff INHALATION RT-DAILY 12/06/18 12/12/18 History Sodium Bicarbonate Tab 650 mg PO TID #12 tablet 12/10/18 12/12/18 Rx Allergies Allergy/AdvReac Type Severity Reaction Status Date / Time montelukast sodium AdvReac Itching Verified 12/12/18 20:16 [From Singulair] Physical Exam Vitals: Vital Signs Temp Pulse Resp BP Pulse Ox 12/13/18 07:15 64 12/13/18 07:02 58 L 12/13/18 04:00 97.6 F 59 L 14 155/58 97 12/13/18 03:22 58 L 12/13/18 03:14 98 12/13/18 03:00 58 L 12 144/89 96 12/13/18 02:00 59 L 15 128/59 97 12/13/18 01:00 66 20 128/59 90 L 12/13/18 00:30 97.6 F 64 14 131/59 90 L 12/13/18 00:05 67 19 93 L 12/12/18 23:39 66 12/12/18 23:27 68 12/12/18 23:26 19 12/12/18 22:14 73 19 131/71 96 12/12/18 20:43 66 21 116/41 96 12/12/18 19:54 67 21 113/61 97 12/12/18 19:50 68 12/12/18 19:34 74 12/12/18 19:24 30 H 12/12/18 19:17 97.4 F L 74 19 118/51 86 L Intake and Output 12/12/18 12/13/18 12/13/18 22:59 06:59 14:59 Intake Total 380 Output Total 300 Balance 80 Intake: IV 140 Sodium Chloride 0.9% 1, 140 000 ml @ 20 mls/hr IV . Q24H [facility] Rx#:[id number] Oral 240 Output: Urine 300 Other: Voiding Method Urinal # Voids 1 Weight 103.419 kg 102.6 kg General appearance: alert, in no apparent distress, on 4 L nasal cannula Head exam: Atraumatic, normocephalic Eye exam:normal appearance, PERRL, EOMI. Absent: scleral icterus, conjunctival injection, periorbital swelling ENT exam: normal exam, mucous membranes moist Neck exam: Present: normal inspection. Absent: tenderness, meningismus, lymphadenopathy Respiratory exam: Diminished breath sounds at the bases, minimal wheezing on forced expiratory maneuver. Cardiovascular Exam: Regular rate and rhythm, 2/6 systolic murmur throughout the precordium, GI/Abdominal exam: Present: soft, normal bowel sounds. Absent: distended, tenderness, guarding, rebound, rigid Extremities exam: Present: normal inspection, full ROM, normal capillary refill. Absent: tenderness, pedal edema, joint swelling, calf tenderness Back exam: Present: normal inspection Neurological exam: Present: alert, oriented X3, CN II-XII intact Psychiatric exam: Present: normal affect, normal mood Skin exam: Present: warm, dry, intact, normal color. Absent: rash Results - Laboratory Findings CBC and BMP: 12/13/18 03:04 12/13/18 03:04 PT/INR, D-dimer PT 9.4 sec (9.0-12.0) 12/12/18 19:25 INR 0.8 (<1.2) 12/12/18 19:25 D-Dimer 0.47 mg/L FEU (<0.60) 12/12/18 19:25 Abnormal lab findings: Abnormal Labs 12/12/18 12/12/18 12/12/18 19:25 19:25 19:25 WBC 11.9 H RBC 3.60 L Hgb 10.6 L Hct 35.0 L MCHC 30.2 L Neutrophils # 10.6 H Lymphocytes # 0.7 L APTT 20.3 L Sodium Potassium 5.2 H Chloride 96 L Carbon Dioxide 37 H Glucose 140 H POC Glucose (mg/dL) ALT 75 H Creatine Kinase 22 L Troponin I Total Protein 5.4 L Albumin 2.9 L 12/12/18 12/13/18 12/13/18 19:25 00:17 00:51 WBC RBC Hgb Hct MCHC Neutrophils # Lymphocytes # APTT Sodium Potassium Chloride Carbon Dioxide Glucose POC Glucose (mg/dL) 247 H 168 H ALT Creatine Kinase Troponin I 0.044 H* Total Protein Albumin 12/13/18 12/13/18 12/13/18 03:04 03:04 03:04 WBC 10.8 H RBC 3.51 L Hgb 10.4 L Hct 34.1 L MCHC 30.4 L Neutrophils # 10.0 H Lymphocytes # 0.5 L APTT Sodium 136 L Potassium Chloride 93 L Carbon Dioxide 39 H Glucose 130 H POC Glucose (mg/dL) ALT 74 H Creatine Kinase Troponin I 0.037 H* Total Protein 5.5 L Albumin 3.0 L 12/13/18 07:04 WBC RBC Hgb Hct MCHC Neutrophils # Lymphocytes # APTT Sodium Potassium Chloride Carbon Dioxide Glucose POC Glucose (mg/dL) 215 H ALT Creatine Kinase Troponin I Total Protein Albumin - Diagnostic Findings Chest x-ray: image reviewed (As noted in HPI) Assessment and Plan Assessment: Impression: #1: Acute on chronic hypoxic respiratory failure secondary to COPD and chronic diastolic congestive heart failure. 2: Acute exacerbation of COPD 3 possible non-ST elevation myocardial infarction with elevated troponins #4. Recent hospitalization for acute exacerbation of COPD, and foreign body in oropharynx. Removed #5. Paroxysmal atrial fibrillation, anticoagulated with Eliquis #6. Stage III COPD, on home oxygen, with underlying FEV1 of 1.59 L or 48% of predicted #7. History of CVA/TIA #8. Solitary lung nodule in the left upper lobe, measuring 1 cm, and the PET scan showed no suspicious uptake this is being followed with this CT chest every 6 months #9. Coronary artery disease #10. Hypertension, hyperlipidemia #11. Osteoarthritis #12. BPH #13. IBS #14. History of 53 years of smoking, of 2-3 packs a day, quit smoking in May 2018 #15. GERD/reflux Recommendation: Considering the patient is responding well to treatment, I would continue the same course of bronchodilators, diuretics, cardiology to see the patient on consultation, patient is presently on overflow in the ICU, he could be transferred back to a monitor bed on selective, and we'll continue to follow. All his meds were reviewed, chest x-ray was reviewed, and I fully agree with th e present treatment plan. Long-term prognosis remains extremely poor and guarded considering his multiple frequent admissions in the last couple of months. Time with Patient: Greater than 30
[2018-12-13 11:56] VITALS: BMI 32.4
[2018-12-13 12:54] LABS: Glucose,Whole Blood 255 mg/dL (75-99)
[2018-12-13 17:14] LABS: Glucose,Whole Blood 129 mg/dL (75-99)
[2018-12-13] MEDS: TAMSULOSIN 0.4 MG CAP.ER.24H PO SCH (20:07)
[2018-12-13] MEDS: ATORVASTATIN 80 MG TAB PO SCH (20:09)
--- NOTE | 2018-12-13 20:18 | P.PN ---
Subjective Progress Note Date: 12/13/18 (Delayed charting patient seen at 8:30) Principal diagnosis: Shortness of breath Patient is a 68-year-old male past medical history of paroxysmal A. fib on eliquis, CHF, chronic hypoxic respiratory failure, and severe end-stage COPD who presented to the ER with complaints of shortness of breath. Patient seen and examined at bedside in ICU. He states his breathing is significantly better than yesterday but still not back to baseline. Denies any chest pain. No nausea, vomiting, or constipation. He states he ate a normal dinner and then sat down to watch TV and got acutely short of breath. He denies any triggers such as changes in soaps, new pets, carpet cleaning, exposure to chemical, or exposure to new foods. Objective - Vital Signs Vital signs: Vital Signs Temp 98.1 F 12/13/18 12:00 Pulse 74 12/13/18 18:00 Resp 18 12/13/18 18:00 BP 127/67 12/13/18 18:00 Pulse Ox 94 L 12/13/18 18:00 Intake & Output 12/13/18 12/13/18 12/14/18 06:59 18:59 06:59 Intake Total 380 360 Output Total 300 1700 Balance 80 -1340 Weight 102.6 kg 102.6 kg Intake: IV 140 60 Sodium Chloride 0.9% 1, 140 60 000 ml @ 20 mls/hr IV . Q24H [facility] Rx#:[id number] Oral 240 300 Output: Urine 300 1700 Other: Voiding Method Urinal Urinal # Voids 1 - Exam General: non toxic, no distress, appears older than stated age Derm: warm, dry Head: atraumatic, normocephalic, symmetric Eyes: EOMI, no lid lag, anicteric sclera Mouth: no lip lesion, mucus membranes moist Cardiovascular: S1S2 reg, no murmur, positive posterior tibial pulse bilateral, Lungs: Course bs bilateral , no accessory muscle use Abdominal: soft, nontender to palpation, no guarding, no appreciable organomegaly Ext: no gross muscle atrophy, 1+ edema, no contractures Neuro: CN II-XI grossly intact, no focal neuro deficits Psych: Alert, oriented, appropriate affect - Labs CBC & Chem 7: 12/13/18 03:04 12/13/18 03:04 Labs: Abnormal Lab Results - Last 24 Hours (Table) 12/12/18 12/13/18 12/13/18 Range/Units 19:25 00:17 00:51 WBC (3.8-10.6) k/uL RBC (4.30-5.90) m/uL Hgb (13.0-17.5) gm/dL Hct (39.0-53.0) % MCHC (31.0-37.0) g/dL Neutrophils # (1.3-7.7) k/uL Lymphocytes # (1.0-4.8) k/uL Sodium (137-145) mmol/L Chloride (98-107) mmol/L Carbon Dioxide (22-30) mmol/L Glucose (74-99) mg/dL POC Glucose (mg/dL) 247 H 168 H (75-99) mg/dL ALT (21-72) U/L Troponin I 0.044 H* (0.000-0.034) ng/mL Total Protein (6.3-8.2) g/dL Albumin (3.5-5.0) g/dL 12/13/18 12/13/18 12/13/18 Range/Units 03:04 03:04 03:04 WBC 10.8 H (3.8-10.6) k/uL RBC 3.51 L (4.30-5.90) m/uL Hgb 10.4 L (13.0-17.5) gm/dL Hct 34.1 L (39.0-53.0) % MCHC 30.4 L (31.0-37.0) g/dL Neutrophils # 10.0 H (1.3-7.7) k/uL Lymphocytes # 0.5 L (1.0-4.8) k/uL Sodium 136 L (137-145) mmol/L Chloride 93 L (98-107) mmol/L Carbon Dioxide 39 H (22-30) mmol/L Glucose 130 H (74-99) mg/dL POC Glucose (mg/dL) (75-99) mg/dL ALT 74 H (21-72) U/L Troponin I 0.037 H* (0.000-0.034) ng/mL Total Protein 5.5 L (6.3-8.2) g/dL Albumin 3.0 L (3.5-5.0) g/dL 12/13/18 12/13/18 12/13/18 Range/Units 07:04 12:50 17:11 WBC (3.8-10.6) k/uL RBC (4.30-5.90) m/uL Hgb (13.0-17.5) gm/dL Hct (39.0-53.0) % MCHC (31.0-37.0) g/dL Neutrophils # (1.3-7.7) k/uL Lymphocytes # (1.0-4.8) k/uL Sodium (137-145) mmol/L Chloride (98-107) mmol/L Carbon Dioxide (22-30) mmol/L Glucose (74-99) mg/dL POC Glucose (mg/dL) 215 H 255 H 129 H (75-99) mg/dL ALT (21-72) U/L Troponin I (0.000-0.034) ng/mL Total Protein (6.3-8.2) g/dL Albumin (3.5-5.0) g/dL Assessment and Plan Assessment: Acute exacerbation of COPD, Gold stage III -Pulmonary consultation -Steroid burst and taper -Bronchodilators -No indication for antibiotic as patient does not have productive cough -Pulmonary hygiene Acute on chronic hypoxic respiratory failure -Off BiPAP, wean O2 as able -Treatment as above Elevated troponin -Mild and not diagnostic of acute coronary syndrome. Normalized on repeat -Suspect secondary to hypoxemia. Hyperglycemia - due to steroids - follow BS Paroxysmal atrial fibrillation - on eliquis - rate controlled - telemetry - dig and lopressor Hypertension, controlled - continue current medications Chronic anemia - near baseline - outpatient follow-up Known solitary pulmonary nodule - continued outpatient follow-up Alkalosis - decrease sodium bicarb BPH - flomax Hyperkalemia, resolved DVT prophylaxis: eliquis Discussed with: Patient, nursing Anticipated discharge: 24-[address]: home with home health A total of 35 minutes was spent on the care of this complex patient more than 50% of the time was spent in counseling and care coordination.
[2018-12-13 21:12] LABS: Glucose,Whole Blood 185 mg/dL (75-99)
[2018-12-14] MEDS: DILTIAZEM ORAL 30 MG TAB PO SCH ×5 (00:12→23:18)
[2018-12-14] MEDS: methylPREDNISolone SOD SUCCI 125 MG/2 ML VIAL IV SCH ×2 (00:14→05:03)
[2018-12-14] MEDS: IPRATROPIUM-ALBUTEROL 3 ML NEB INHALATION SCH ×6 (03:30→23:43)
[2018-12-14] MEDS: METOPROLOL TARTRATE 50 MG TAB PO SCH ×4 (04:45→22:17)
[2018-12-14] MEDS: HYDROcodone/APAP 10-325MG 1 EACH TAB PO PRN ×3 (05:02→19:00)
[2018-12-14 05:30] LABS: HCT 30.9 % (39.0-53.0); HGB 9.7 gm/dL (13.0-17.5); MCH 30.2 pg (25.0-35.0); MCHC 31.3 g/dL (31.0-37.0); MCV 96.4 fL (80.0-100.0); Mean Platelet Volume 6.8; Platelet Count 221 k/uL (150-450); WBC 9.3 k/uL (3.8-10.6)
[2018-12-14 05:39] LABS: Blood Urea Nitrogen 26 mg/dL (9-20); Chloride 93 mmol/L (98-107); Glucose 152 mg/dL (74-99); Potassium 3.8 mmol/L (3.5-5.1); Sodium 136 mmol/L (137-145)
[2018-12-14 05:45] LABS: Anion Gap 4 mmol/L
[2018-12-14 05:49] LABS: Carbon Dioxide 39 mmol/L (22-30)
[2018-12-14 07:19] LABS: Glucose,Whole Blood 173 mg/dL (75-99)
[2018-12-14] MEDS: INSULIN ASPART (NovoLOG) 100 UNIT/ML VIAL SQ SCH ×4 (07:28→22:20)
[2018-12-14] MEDS: PANTOPRAZOLE 40 MG TABLET PO SCH (07:28)
--- NOTE | 2018-12-14 07:28 | XR ---
EXAMINATION TYPE: XR chest 1V portable DATE OF EXAM: 12/14/2018 Comparison: 12/12/2018 Clinical History: 68-year-old male SOB Findings: Heart borderline enlarged. Mild perihilar streaky densities. Patchy left basilar and retrocardiac den sity. Trace blunting of the left costophrenic angle. Impression: Borderline heart size, streaky perihilar densities, and possible trace left effusion. Correlate for p ossible mild CHF. Additional more patchy infiltrate versus developing edema at the left base.
[2018-12-14] MEDS: SYMBICORT 160-4.5 MCG INHALER INHALATION SCH ×2 (07:31→20:12)
--- NOTE | 2018-12-14 08:25 | PN ---
PROGRESS NOTE DATE OF SERVICE: December 14, 2018 This is a patient seen by my partner yesterday in consultation. He is well known to me. His primary is Dr. Suazo and I see him in my office for his underlying COPD. The patient has severe COPD with an FEV1 at 48% of predicted. Anyway, he presents with complaints of increasing shortness of breath with hypoxemic respiratory failure, likely secondary to both diastolic heart failure as well as COPD exacerbation. Looking back, he has had already 3 admissions this year for similar episodes. The patient is currently on BiPAP therapy. His IPAP is at 12, EPAP is 6, and he is at 50%. He is verbal. He appears to be awake and alert. States he is feeling better. He was admitted on December 12. The patient is currently getting an IV of 0.9 at 20 mL an hour. He appears relatively comfortable. He is able to speak in full sentences. In addition to the respiratory failure, he has a history of underlying COPD, possible non ST-segment elevation myocardial infarction, history of paroxysmal atrial fibrillation, stage III chronic obstructive pulmonary disease, CVA, left upper lobe solitary pulmonary nodule, being followed with serial CT scans, CAD, hypertension, hyperlipidemia, DJD, BPH, irritable bowel syndrome, 53 years of tobacco use at 2 to 3 packs a day and gastroesophageal reflux disease. All in all, the patient looks reasonably stable at this time. Chest x-ray was reviewed and showed findings consistent with cardiomegaly and some mild to moderate CHF. Currently, his temperature 98.1, heart rate 62, respiratory rate mid 20s, blood pressure 109/54, mean 72, and his saturations are in the low 90s. Appears in no acute distress. Minimal to no conversational dyspnea. Mild tachypnea. HEENT examination is grossly unremarkable. BiPAP mask in place. NECK: Supple. Full range of motion. No adenopathy or thyromegaly. No neck vein distention. CARDIOVASCULAR: Examination reveals heart rate in the mid to high 60s low 70s. S1 and S2 normal. No S3, S4, or murmur. Heart sounds are distant. LUNGS: Reveal some bibasilar crackles. There is also some coarse rhonchi. No distinct wheezes are appreciated. Breath sounds are diminished throughout. ABDOMEN: Soft. Bowel sounds are heard. EXTREMITIES: Reveal some mild edema. No cyanosis or clubbing. SKIN: Without rash. NEUROLOGIC: Examination is brief but nonfocal. Chest x-ray shows some mild CHF changes with cardiomegaly and small effusions. Labs are reviewed. His white count 9.3, hemoglobin 9.7, hematocrit 30.9, platelet count 221,000. His sodium 136, potassium 3.8, chloride 93, CO2 is 39. Anion gap is 4. BUN and creatinine were 26 and 0.76. His troponins were 0.044 and 0.028, likely reflecting supply-demand mismatch versus non ST-segment elevation myocardial infarction. In my opinion, the former is more likely. His N-terminal proBNP was elevated slightly 1460. The rest of his labs look okay. Microbiology is negative. Medications are reviewed. They will be adjusted accordingly. ASSESSMENT: 1. Acute hypoxemic respiratory failure, likely a combination of both chronic obstructive pulmonary disease exacerbation and diastolic heart failure. 2. History of stage III chronic obstructive pulmonary disease with an FEV1 that is 48% of predicted. 3. Elevated troponins, likely reflecting supply/demand mismatch versus possible non ST- segment elevation myocardial infarction. 4. Recent hospitalization for chronic obstructive pulmonary disease exacerbation and oropharyngeal foreign body. 5. History of paroxysmal atrial fibrillation. 6. History of cerebrovascular accident. 7. Left upper lobe pulmonary nodule, being followed by serial CT scans. 8. Coronary artery disease. 9. Hypertension. 10.Hyperlipidemia. 11.Osteoarthritis. 12.Benign prostatic hypertrophy. 13.Irritable bowel syndrome. 14.Previous history of severe tobacco use, 53 years at 2 to 3 packs a day, patient quit in May 2018. 15.History of gastroesophageal reflux disease. PLAN: The patient has had declining health in the last 6 months. He has had at least 3 admissions here in the last 4 to 6 months. Medications are reviewed. Allergies are reviewed. Problem list is reviewed. Additional recommendations and suggestions are forthcoming. His prognosis is very guarded. MMODL / IJN: [id number] /
[2018-12-14] MEDS: DIGOXIN 250 MCG TAB PO SCH (08:47)
[2018-12-14] MEDS: MULTIVITAMINS, THERA 1 EACH TAB PO SCH (08:48)
[2018-12-14] MEDS: GABAPENTIN 400 MG CAP PO SCH ×4 (08:48→22:17)
[2018-12-14] MEDS: FUROSEMIDE 10 MG/ML 4 ML VIAL IV SCH ×2 (08:48→22:18)
[2018-12-14] MEDS: ASPIRIN 81 MG PO SCH (08:48)
[2018-12-14] MEDS: SODIUM BICARBONATE TAB 650 MG TAB PO SCH ×3 (08:48→22:16)
[2018-12-14] MEDS: APIXABAN 5 MG TAB PO SCH ×2 (08:48→22:17)
--- NOTE | 2018-12-14 09:22 | P.PN ---
Subjective Progress Note Date: 12/14/18 Principal diagnosis: COPD, CHF exacerbation 68-year-old male with significant PMH of paroxysmal A. 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 Pulmonology has been on consult for COPD exacerbation. Cardiology has been consulted for CHF exacerbation. Patient was also noted to have elevated troponins as high as 0.044, trending down. This is consistent with previous admissions. Patient was seen and examined this morning. No acute events overnight. Chest x- ray this morning shows possible trace left effusion, mild CHF. Patient is currently on nasal cannula 5 L saturating low 90s.patient reports that his breathing is back to baseline. Patient is unsure if there is a trigger to his COPD at home. He denies any chest pain or palpitations. No nausea or vomiting. No fever or chills. Objective - Vital Signs Vital signs: Vital Signs Temp 98.1 F 12/14/18 02:00 Pulse 58 L 12/14/18 07:40 Resp 17 12/14/18 06:00 BP 129/55 12/14/18 06:00 Pulse Ox 92 L 12/14/18 06:00 Intake & Output 12/13/18 12/14/18 12/14/18 18:59 06:59 18:59 Intake Total 360 630 Output Total 1700 1175 Balance -1340 -545 Weight 102.6 kg Intake: IV 60 180 Sodium Chloride 0.9% 1, 60 180 000 ml @ 20 mls/hr IV . Q24H [facility] Rx#:[id number] Oral 300 450 Output: Urine 1700 1175 Other: Voiding Method Urinal Urinal - Exam General: [non toxic], [no distress on 5 L NC], [appears at stated age] Derm: [warm], [dry] Head: [atraumatic], [normocephalic], [symmetric] Eyes: [EOMI], [no lid lag], [anicteric sclera] Mouth: [no lip lesion], [mucus membranes moist] Cardiovascular: [S1S2 reg], [no murmur], [positive posterior tibial pulse bilateral], Lungs: [Decreased breath sounds bilateral], [no rhonchi, no rales] , [no accessory muscle use] Abdominal: [soft], [ nontender to palpation], [no guarding], [no appreciable organomegaly] Ext: [no gross muscle atrophy], [no edema], [no contractures] Neuro: [no focal neuro deficits] Psych: [Alert], [oriented], [appropriate affect] - Labs CBC & Chem 7: 12/14/18 04:47 12/14/18 04:47 Labs: Abnormal Lab Results - Last 24 Hours (Table) 12/13/18 12/13/18 12/13/18 Range/Units 12:50 17:11 21:09 RBC (4.30-5.90) m/uL Hgb (13.0-17.5) gm/dL Hct (39.0-53.0) % Sodium (137-145) mmol/L Chloride (98-107) mmol/L Carbon Dioxide (22-30) mmol/L BUN (9-20) mg/dL Glucose (74-99) mg/dL POC Glucose (mg/dL) 255 H 129 H 185 H (75-99) mg/dL 12/14/18 12/14/18 12/14/18 Range/Units 04:47 04:47 06:53 RBC 3.20 L (4.30-5.90) m/uL Hgb 9.7 L (13.0-17.5) gm/dL Hct 30.9 L (39.0-53.0) % Sodium 136 L (137-145) mmol/L Chloride 93 L (98-107) mmol/L Carbon Dioxide 39 H (22-30) mmol/L BUN 26 H (9-20) mg/dL Glucose 152 H (74-99) mg/dL POC Glucose (mg/dL) 173 H (75-99) mg/dL Assessment and Plan Assessment: Assessment and Plan Acute on chronic hypoxic respiratory failure on 4 L nasal cannula likely secondary to mixed COPD and diastolic CHF exacerbation COPD exacerbation with FEV1 of 48% Diastolic CHF exacerbation Elevated troponin Paroxysmal atrial fibrillation Anemia History of CVA/CAD Hypertension Hyperlipidemia BPH GERD D-Dimer 0.47, low concerns for PE. BNP 1460, recent chest x-ray showing possible left pleural effusion, signs of mild CHF. Patient has a known history of COPD with FEV1 of 48% on 4 L home O2. Plan: Continue IV Lasix for management of CHF. Optimize COPD medications. Follow pulmonology consult. End stage. Unknown trigger. Multiple admissions for dyspnea in the last 6 months. Plan: Continue Symbicort. DuoNeb 4 times a day scheduled and as needed for shortness of breath and wheezing. Continue Solu-Medrol. O2 per NC/BiPAP to maintain O2 saturation greater than 92%. Follow pulmonology consultation. Will discuss with patient regarding palliative care. Follow PT and OT humberto mmendations. Chest x-ray showing signs of mild CHF with BNP of 1460. Echocardiogram in October shows EF 55-60% with mild LVH. Plan: Continue diuresis with Lasix IV. Continue digoxin. Continue beta noam. Strict intake and output. Keep K >4 and Mg greater than 2. Telemetry monitoring. Troponin 0.044, 0.037, 0.028 with EKG showing normal sinus rhythm. ACS ruled out. Likely secondary to demand ischemia. Plan: Continue aspirin and Lipitor. Continue beta noam. Telemetry monitoring. Currently rate controlled. Plan: Continue beta noam. Anticoagulated with Eliquis. Management as above. Hemoglobin 9.7, normocytic. Chronic in nature from previous admissions. Plan: Daily CBC. Needs PCP follow-up. Plan: Continue aspirin, Lipitor. BP 129/55. Plan: Continue metoprolol and diltiazem. Monitor vitals, adjust medications as necessary. Plan: Continue Lipitor. Plan: Continue Flomax. Plan: Continue Protonix. Patient reports his breathing back to baseline. He is being diuresed with Lasix IV for CHF exacerbation. Chest x-ray this morning shows possible left pleural effusion, signs of mild CHF. One more day of IV diuresis. Can be moved out of ICU. Possible DC in 1-2 days.
[2018-12-14] MEDS: CYCLOBENZAPRINE 10 MG TAB PO PRN (09:36)
[2018-12-14 11:57] LABS: Glucose,Whole Blood 159 mg/dL (75-99)
[2018-12-14] MEDS: methylPREDNISolone SOD SUCCI 40 MG/ML 1 ML VIAL IV SCH ×3 (11:58→23:19)
[2018-12-14 13:13] LABS: Hemoglobin A1C 6.7 % (4.0-6.0)
[2018-12-14 17:13] LABS: Glucose,Whole Blood 185 mg/dL (75-99)
[2018-12-14 21:07] LABS: Glucose,Whole Blood 240 mg/dL (75-99)
[2018-12-14] MEDS: TAMSULOSIN 0.4 MG CAP.ER.24H PO SCH (22:16)
[2018-12-14] MEDS: ATORVASTATIN 80 MG TAB PO SCH (22:18)
[2018-12-14] MEDS: SODIUM CHLORIDE 0.9% 1,000 ML IV SCH (22:23)
[2018-12-15] MEDS: HYDROcodone/APAP 10-325MG 1 EACH TAB PO PRN ×2 (02:29→11:34)
[2018-12-15] MEDS: CYCLOBENZAPRINE 10 MG TAB PO PRN (02:30)
[2018-12-15] MEDS: METOPROLOL TARTRATE 50 MG TAB PO SCH ×2 (03:08→11:01)
[2018-12-15] MEDS: IPRATROPIUM-ALBUTEROL 3 ML NEB INHALATION SCH ×3 (04:12→11:09)
[2018-12-15 04:29] VITALS: TEMP 98.5
[2018-12-15 06:46] LABS: Glucose,Whole Blood 174 mg/dL (75-99)
[2018-12-15] MEDS: SYMBICORT 160-4.5 MCG INHALER INHALATION SCH (06:46)
[2018-12-15] MEDS: PANTOPRAZOLE 40 MG TABLET PO SCH (06:47)
[2018-12-15] MEDS: DILTIAZEM ORAL 30 MG TAB PO SCH ×2 (06:47→11:49)
[2018-12-15] MEDS: INSULIN ASPART (NovoLOG) 100 UNIT/ML VIAL SQ SCH (06:48)
--- NOTE | 2018-12-15 07:46 | PN ---
PROGRESS NOTE DATE OF SERVICE: December 15, 2018 This is a 68-year-old gentleman who sees Dr. David Suazo as a primary. I see him in my office for underlying severe COPD. His FEV1 is 48% of predicted. He was seen by my partner over the weekend for increasing shortness of breath with hypoxemic respiratory failure. In addition, he was thought to have diastolic heart failure as well. The patient is requiring BiPAP at 19 at nighttime with the settings of IPAP of 12, EPAP of 6, and 50% FiO2. During the daytime, the patient is comfortable on 4 L by nasal cannula. The patient is not receiving any IV fluids. He had a pretty uneventful night according to the nurse last night. Denies any chest pain, chest discomfort, significant shortness of breath, cough, wheezing, or phlegm production. Unfortunately, the patient's overall health has declined over the last 4 to 6 months and he has had 2 or 3 admissions already this year. Current vital signs include temperature is 98.5, heart rate 60, respiratory rate 18, blood pressure 133/51, mean 78, saturations of 92% on the BiPAP. Appears in no acute distress. No respiratory distress. No audible wheezing noted. HEENT: Examination is grossly unremarkable. BiPAP mask in place. NECK: Supple. Full range of motion. No adenopathy thyromegaly or observable neck vein distention. CARDIOVASCULAR: Examination reveals distant heart sounds. S1, S2 normal. Heart rate about 60 beats per minute. No murmur. LUNGS: Reveal scattered rhonchi and some expiratory wheezes. No crackles. Breath sounds equal bilaterally but diminished throughout. ABDOMEN: Is obese. Bowel sounds are heard. EXTREMITIES: Are intact. Mild edema. SKIN: Without rash. NEUROLOGIC: Examination is brief but nonfocal. Labs are reviewed. No new labs from today. Microbiologic studies are negative. The patient had a chest x-ray this morning that shows mild cardiomegaly and small bilateral pleural effusions. There is probably some atelectasis at the left lung base as well. Medications are reviewed. They all appeared to be appropriate. ASSESSMENT: 1. Acute hypoxemic respiratory failure, likely multifactorial, in part related to underlying chronic obstructive pulmonary disease exacerbation and diastolic heart failure. 2. History of stage III/severe chronic obstructive pulmonary disease with an FEV1 that is 48% of predicted. 3. Elevated troponins, likely reflecting supply/demand mismatch versus possible non ST- segment elevation myocardial infarction. 4. Recent hospitalization for chronic obstructive pulmonary disease exacerbation and/or pharyngeal foreign body. 5. History of paroxysmal atrial fibrillation. 6. History of cerebrovascular accident. 7. Left upper lobe pulmonary nodule, with negative PET scan, being followed by serial CT scanning. 8. History of coronary artery disease. 9. Hypertension. 10.Hyperlipidemia. 11.Degenerative joint disease. 12.Benign prostatic hypertrophy. 13.Irritable bowel syndrome. 14.Previous history of significant tobacco use at 2 to 3 packs a day for 53 years. 15.History of gastroesophageal reflux disease. PLAN: The patient seems to be doing relatively well. During the nighttime he uses BiPAP at 12 and 6 and 50 percent. During the daytime, he is on 4 L nasal cannula. The rest of his medications are reviewed. Everything appears to be appropriate. We will continue to follow. The patient could be likely discharged out to [address] [place] [address]. We will continue to follow. Prognosis is guarded. MMODL / IJN: [id number] / RAJWINDER
--- NOTE | 2018-12-15 08:25 | XR ---
EXAMINATION TYPE: XR chest 1V portable DATE OF EXAM: 12/15/2018 Comparison: 12/14/2018 Clinical History: 68-year-old male with shortness of breath Findings: Heart remains borderline to mildly enlarged. Diffuse interstitial/vascular prominence persists. Sligh t patchy left basilar opacity and possible trace left effusion. Impression: Relatively similar exam, possible mild pulmonary vascular congestion. Similar patchy left basilar ate lectasis/mild infiltrate and possible trace effusion.
[2018-12-15] MEDS: methylPREDNISolone SOD SUCCI 40 MG/ML 1 ML VIAL IV SCH ×2 (08:38→11:29)
[2018-12-15 09:21] VITALS: BP 122/71; RESP 22
--- NOTE | 2018-12-15 09:31 | P.DS ---
Providers Date of admission: 12/12/18 21:32 Expected date of discharge: 12/15/18 Attending physician: Sierra Lindquist MD Consults: 12/12/18 21:31 Consult Physician Routine Consulting Provider: Lopez Mendenhall Consult Reason/Comments: COPD exacerbation, hypoxemia Do you want consulting provider notified?: Yes Primary care physician: [facility] Course: 68-year-old man with history of paroxysmal A. fib on Eliquis, CHF, chronic hypoxic respiratory failure secondary COPD on 4 L oxygen Patient presented today due to sudden onset shortness of breath patient was doing well up until after dinner when he didn't feel well he felt slight discomfort in his chest and ask his check his oxygen when they found her to be in the low 60% for which she asked for a bump in his oxygen supply from 4 L to 5 L/m and that didn't help the problem. Patient denies any overt coughing or chest pain at that point he just felt uncomfortable and was worried due to his low oxygen level and decided come to the hospital. Patient was recently admitted for COPD exacerbation where he also found to have foreign body in his oropharynx that was removed. Patient was discharged on tapering dose of steroids and he was still taking prednisone by mouth 10 mg daily. In the ED he was found to be wheezing for which she was started on breathing treatment and he was also found to have slightly swollen legs for which she was given Lasix. Patient indicated that his weight has been stable and she doesn't think that he retained any fluids so far and there've been checking his weight daily. He reports that he's been compliant with medications. His shortness of breath was thought to be secondary to COPD exacerbation and diastolic CHF exacerbation. D-dimer was 0.47 and there were low concerns for PE. BNP was 1460, chest x-ray showing possible left pleural effusions and signs of mild CHF. Echocardiogram in October showed EF 55-60% with mild LVH. Patient was started on Lasix 40 mg IV twice a day and later transitioned to oral on discharge. With regard to his COPD exacerbation, he was started on duo nebs 4 times a day scheduled and as needed for shortness of breath and wheezing. Patient was started on Solu-Medrol and transitioned to prednisone on discharge. He was given O2 per NC to maintain O2 saturation greater than 92%. Pulmonology was involved in the care of this patient during this admission. Patient's troponins were trended to rule out ACS. Troponin was 0.044, 0.037, 0.028 with EKG showing normal sinus rhythm. This was likely secondary to demand ischemia. Otherwise, his home medications were resumed for GERD, BPH, hyperlipidemia, hypertension, history of CVA/CAD, paroxysmal atrial fibrillation. Patient was seen and examined prior to discharge. No acute events overnight. Patient reports complete resolution of his symptoms. States he has not felt this good in sometime now. He is saturating 92% on 4 L nasal cannula. He denies any cough, shortness of breath or chest pain at this time. No nausea or vomiting. No fever or chills. General: [non toxic], [no distress on 4 L NC], [appears at stated age] Derm: [warm], [dry] Head: [atraumatic], [normocephalic], [symmetric] Eyes: [EOMI], [no lid lag], [anicteric sclera] Mouth: [no lip lesion], [mucus membranes moist] Cardiovascular: [S1S2 reg], [no murmur], [positive posterior tibial pulse bilateral], Lungs: [Decreased breath sounds bilateral], [no rhonchi, no rales] , [no accessory muscle use] Abdominal: [soft], [ nontender to palpation], [no guarding], [no appreciable o rganomegaly] Ext: [no gross muscle atrophy], [no edema], [no contractures] Neuro: [no focal neuro deficits] Psych: [Alert], [oriented], [appropriate affect] Assessment and Plan Acute on chronic hypoxic respiratory failure on 4 L nasal cannula likely secondary to mixed COPD and diastolic CHF exacerbation COPD exacerbation with FEV1 of 48% Diastolic CHF exacerbation Elevated troponin Paroxysmal atrial fibrillation Anemia History of CVA/CAD Hypertension Hyperlipidemia BPH GERD D-Dimer 0.47, low concerns for PE. BNP 1460, recent chest x-ray showing possible left pleural effusion, signs of mild CHF. Patient has a known history of COPD with FEV1 of 48% on 4 L home O2. Plan: Transition from Lasix IV to by mouth for management of CHF. Optimize COPD medications. Follow pulmonology consult. End stage. Unknown trigger. Multiple admissions for dyspnea in the last 6 months. Plan: Continue Symbicort. DuoNeb 4 times a day scheduled and as needed for shortness of breath and wheezing. Transition Solumedrol to Prednisone taper for discharge. O2 per NC/BiPAP to maintain O2 saturation greater than 92%. Follow pulmonology consultation. Recommendation for ECF but patient prefers home with home health. Follow PT and OT recommendations. Chest x-ray showing signs of mild CHF with BNP of 1460. Echocardiogram in October shows EF 55-60% with mild LVH. Plan: Transition from Lasix IV to by mouth. Continue digoxin. Continue beta noam. Strict intake and output. Keep K >4 and Mg greater than 2. Telemetry monitoring. Troponin 0.044, 0.037, 0.028 with EKG showing normal sinus rhythm. ACS ruled out. Likely secondary to demand ischemia. Plan: Continue aspirin and Lipitor. Continue beta noam. Telemetry monitoring. Currently rate controlled. Plan: Continue beta noam. Anticoagulated with Eliquis. Management as above. Hemoglobin 9.7, normocytic. Chronic in nature from previous admissions. Plan: Daily CBC. Needs PCP follow-up. Plan: Continue aspirin, Lipitor. BP 133/51. Plan: Continue metoprolol and diltiazem. Monitor vitals, adjust medications as necessary. Plan: Continue Lipitor. Plan: Continue Flomax. Plan: Continue Protonix. Patient reports his breathing back to baseline. Plans on discharge with Prednisone taper and Lasix by mouth. DC today pending Pulmonology clearance. This discharge took greater than 30 minutes. Pertinent Studies: Chest x-ray Patient Condition at Discharge: Stable Plan - Discharge Summary Discharge Rx Participant: No New Discharge Prescriptions: New Furosemide [Lasix] 40 mg PO DAILY #30 tab predniSONE See Taper PO DIRECTED #48 tab Sodium Bicarbonate Tab 325 mg PO TID #90 tab Continue Multivitamins, Thera [Multivitamin (formulary)] 1 tab PO DAILY Aspirin 81 mg PO DAILY Ipratropium-Albuterol Nebulize [Duoneb 0.5 mg-3 mg/3 ml Soln] 3 ml INHALATION RT-QID PRN PRN Reason: Shortness Of Breath Esomeprazole Magnesium [NexIUM] 40 mg PO DAILY Atorvastatin [Lipitor] 80 mg PO HS Gabapentin [Neurontin] 400 mg PO QID #120 cap HYDROcodone/APAP 10-325MG [Peru 10-325] 1 tab PO Q6H PRN #30 tab PRN Reason: Pain Cyclobenzaprine [Flexeril] 10 mg PO Q8H PRN PRN Reason: Muscle Spasm Digoxin 250 mcg PO DAILY #10 tablet Diltiazem HCl 90 mg PO Q6H #40 tablet Apixaban [Eliquis] 5 mg PO BID #20 tab Tamsulosin HCl [Flomax] 0.4 mg PO HS #20 capsule Potassium Chloride ER [K-Dur 20] 20 meq PO BID #20 tab.er.prt Metoprolol Tartrate [Lopressor] 100 mg PO Q6H #40 tablet Budesonide-Formot 160-4.5 Mcg [Symbicort 160-4.5 Mcg Inhaler] 2 puff INHALATION RT-BID #1 inhaler Tiotropium 18 Mcg/Puff [Spiriva] 1 puff INHALATION RT-DAILY Discontinued predniSONE 20 mg PO DAILY #10 tab Sodium Bicarbonate Tab 650 mg PO TID #12 tablet Discharge Medication List Multivitamins, Thera [Multivitamin (formulary)] 1 tab PO DAILY 05/19/18 [History] Aspirin 81 mg PO DAILY 11/21/18 [History] Atorvastatin [Lipitor] 80 mg PO HS 11/21/18 [History] Esomeprazole Magnesium [NexIUM] 40 mg PO DAILY 11/21/18 [History] Ipratropium-Albuterol Nebulize [Duoneb 0.5 mg-3 mg/3 ml Soln] 3 ml INHALATION RT-QID PRN 11/21/18 [History] Gabapentin [Neurontin] 400 mg PO QID #120 cap 11/27/18 [Rx] HYDROcodone/APAP 10-325MG [Peru 10-325] 1 tab PO Q6H PRN #30 tab 11/27/18 [Rx] Cyclobenzaprine [Flexeril] 10 mg PO Q8H PRN 11/30/18 [History] Apixaban [Eliquis] 5 mg PO BID #20 tab 12/03/18 [Rx] Budesonide-Formot 160-4.5 Mcg [Symbicort 160-4.5 Mcg Inhaler] 2 puff INHALATION RT-BID #1 inhaler 12/03/18 [Rx] Digoxin 250 mcg PO DAILY #10 tablet 12/03/18 [Rx] Diltiazem HCl 90 mg PO Q6H #40 tablet 12/03/18 [Rx] Metoprolol Tartrate [Lopressor] 100 mg PO Q6H #40 tablet 12/03/18 [Rx] Potassium Chloride ER [K-Dur 20] 20 meq PO BID #20 tab.er.prt 12/03/18 [Rx] Tamsulosin HCl [Flomax] 0.4 mg PO HS #20 capsule 12/03/18 [Rx] Tiotropium 18 Mcg/Puff [Spiriva] 1 puff INHALATION RT-DAILY 12/06/18 [History] Furosemide [Lasix] 40 mg PO DAILY #30 tab 12/15/18 [Rx] Sodium Bicarbonate Tab 325 mg PO TID #90 tab 12/15/18 [Rx] predniSONE See Taper PO DIRECTED #48 tab 12/15/18 [Rx] Follow up Appointment(s)/Referral(s): David Suazo MD [Primary Care Provider] - 1-2 days Ambulatory/Diagnostic Orders: Basic Metabolic Panel [LAB.AMB] Time Frame: 3 Days, Location: None Selected XR chest 2V [RAD.AMB] Time Frame: 3 Days, Location: None Selected Activity/Diet/Wound Care/Special Instructions: Diet: Cardiac, diabetic Follow-up with PCP within 1-2 days of discharge. Follow-up with pulmonology within 1 week of discharge. Please obtain BMP and chest x-ray within 3 days of discharge. He will need to follow-up the results of this test with your PCP. Discharge Disposition: HOME SELF-CARE
[2018-12-15] MEDS: MULTIVITAMINS, THERA 1 EACH TAB PO SCH (09:42)
[2018-12-15] MEDS: ASPIRIN 81 MG PO SCH (09:43)
[2018-12-15] MEDS: DIGOXIN 250 MCG TAB PO SCH (09:44)
[2018-12-15] MEDS: SODIUM BICARBONATE TAB 650 MG TAB PO SCH (09:44)
[2018-12-15] MEDS: GABAPENTIN 400 MG CAP PO SCH ×2 (09:45→11:53)
[2018-12-15] MEDS: APIXABAN 5 MG TAB PO SCH (09:45)
[2018-12-15 09:55] LABS: ALT 44 U/L (21-72); AST 25 U/L (17-59); Albumin 3.1 g/dL (3.5-5.0); Alkaline Phosphatase 74 U/L (38-126); Anion Gap 9 mmol/L; Blood Urea Nitrogen 32 mg/dL (9-20); Calcium 8.9 mg/dL (8.4-10.2); Carbon Dioxide 37 mmol/L (22-30); Chloride 91 mmol/L (98-107); Glucose 183 mg/dL (74-99); Potassium 3.3 mmol/L (3.5-5.1); Sodium 137 mmol/L (137-145); Total Bilirubin 0.5 mg/dL (0.2-1.3); Total Protein 5.5 g/dL (6.3-8.2)
[2018-12-15 10:02] LABS: HCT 33.7 % (39.0-53.0); HGB 10.4 gm/dL (13.0-17.5); MCH 29.8 pg (25.0-35.0); MCV 96.3 fL (80.0-100.0); Mean Platelet Volume 7.5; Platelet Count 261 k/uL (150-450); RDW 15.4 % (11.5-15.5); WBC 14.3 k/uL (3.8-10.6)
[2018-12-15] MEDS ORDERED: Potassium Replacement Protocol 1 EACH MISC MISCELLANE PRN (10:23)
[2018-12-15] MEDS: POTASSIUM CHLORIDE ER 20 MEQ TAB.ER PO SCH ×2 (11:01→11:49)
[2018-12-15 11:11] VITALS: PULSE 60
[2018-12-16] MEDS ORDERED: FUROSEMIDE 40 MG TAB PO SCH (09:00)
--- NOTE | 2018-12-17 11:03 | CDI ---
Documentation Clarification Form Date: 12/17/18 From: Priscilla Mccartney Phone: If you have a question regarding this query, please contact Isabelle Alfredo at [phone] Admit Date: 12/12/2018 9:32:00 PM Patient Name: Celso Khanna Visit Number: [id number] Discharge Date: 12/15/2018 12:25:00 PM ATTENTION: The Clinical Documentation Specialists (CDI) and [facility] Coding Staff appreciate your assistance in clarifying documentation. Please respond to the clarification below the line at the bottom and electronically sign. The CDI & [facility] Coding staff will review the response and follow-up if needed. Please note: Queries are made part of the Legal Health Record. If you have any questions, please contact the author of this message via ITS. Dr. Davonte Bundy The patient presented with sudden onset of shortness of breath and slight discomfort in his chest. He also had elevated troponin. In your discharge summary, you documented that ACS was ruled out and the elevated troponin was likely secondary to demand ischemia. History/Risk Factors: Acute on chronic respiratory failure, CHF exacerbation, COPD exacerbation, CAD, hypertension and paroxysmal atrial fib. Clinical Indicators: Shortness of breath, chest discomfort Lab findings: Troponin: 0.044, 0.037, 0.028 Vital Signs: T. 97.4, P. 74, R. 19, BP 118/51 Treatment: Telemetry, O2, In your professional opinion, can you please clarify if the above documentation can be clarified further as? Demand ischemia with Type 2 FL Demand ischemia without Type 2 FL Other, please specify Unable to determine demand ischemia with type 2 MI MTDD
== END 2018-12-15 12:25 | disposition home health service (06) | DRG 189 ==
LOC: EC 19:13 → 2SICU 21:32
PROVIDERS: ADMIT Internal Medicine; ATTEND Internal Medicine
PROC: 5A09357 Assistance with Respiratory Ventilation, Less than 24 Consecutive Hours, Continuous Positive Airway Pressure (ICD-10-PCS; principal; 2018-12-12)
DX: J96.21 Acute and chronic respiratory failure with hypoxia (principal); I50.33 Acute on chronic diastolic (congestive) heart failure; I21.A1 Myocardial infarction type 2; E87.3 Alkalosis; J44.1 Chronic obstructive pulmonary disease with (acute) exacerbation; J98.11 Atelectasis; E87.5 Hyperkalemia; I11.0 Hypertensive heart disease with heart failure; I27.20 Pulmonary hypertension, unspecified; I48.0 Paroxysmal atrial fibrillation; E87.8 Other disorders of electrolyte and fluid balance, not elsewhere classified; D64.9 Anemia, unspecified; E78.5 Hyperlipidemia, unspecified; I25.10 Atherosclerotic heart disease of native coronary artery without angina pectoris; K21.9 Gastro-esophageal reflux disease without esophagitis; K58.9 Irritable bowel syndrome, unspecified; M19.90 Unspecified osteoarthritis, unspecified site; N40.0 Benign prostatic hyperplasia without lower urinary tract symptoms; T38.0X5A Adverse effect of glucocorticoids and synthetic analogues, initial encounter; K44.9 Diaphragmatic hernia without obstruction or gangrene; R73.9 Hyperglycemia, unspecified; R91.1 Solitary pulmonary nodule; H93.13 Tinnitus, bilateral; Z79.01 Long term (current) use of anticoagulants; Z79.51 Long term (current) use of inhaled steroids; Z79.82 Long term (current) use of aspirin; Z79.899 Other long term (current) drug therapy; Z79.52 Long term (current) use of systemic steroids; Z87.891 Personal history of nicotine dependence; Z88.8 Allergy status to other drugs, medicaments and biological substances; Z86.73 Personal history of transient ischemic attack (TIA), and cerebral infarction without residual deficits; Z96.652 Presence of left artificial knee joint; Z98.1 Arthrodesis status; Z98.42 Cataract extraction status, left eye; Z98.41 Cataract extraction status, right eye; Z96.1 Presence of intraocular lens; Z99.81 Dependence on supplemental oxygen; Z80.1 Family history of malignant neoplasm of trachea, bronchus and lung
CPT/HCPCS: 36415; 71045; 71046; 80048; 80053; 80162; 81003; 82550; 83036; 83605; 83735; 83880; 84484; 85025; 85027; 85379; 85610; 85730; 87040; 87086; 93005; 94640; 94660; 96360; 96361; 96365; 96375; 99284; 99291

== ENCOUNTER 2018-12-20 00:58 | Inpatient (IN) | payer MEDICARE, BC ==
[2018-12-20] MEDS ORDERED: ACETAMINOPHEN TAB 500 MG TAB PO STA (01:39)
[2018-12-20] MEDS: SODIUM CHLORIDE 0.9% 500 ML 500 ML IV SCH ×2 (01:50→02:48)
--- NOTE | 2018-12-20 03:09 | ED ---
SOB HPI - General Source: patient, EMS Mode of arrival: EMS <Lurdes Haro - Last Filed: 12/20/18 05:08> <John Le - Last Filed: 12/20/18 08:43> - General Chief Complaint: Shortness of Breath Stated Complaint: KANWAL Time Seen by Provider: 12/20/18 01:38 - History of Present Illness Initial Comments: 68-year-old male patient presents to the emergency department today for evaluation of shortness of breath. Patient was recently discharged from the hospital for COPD exacerbation. Patient has multiple comorbidities and has been in the hospital frequently over the last couple of months. Patient states tonight he developed worsening shortness of breath and chest pressure. States he has had increase in swelling to his legs over the last few days, states he did get an increased dose of Lasix today. Patient states he has had a productive cough. States he is having some upper abdominal pain. He did have pain pump removed with surgical incisions to both the abdomen and the low back. Denies any drainage from the incision sites. Patient denies any rash, neck pain, nausea, vomiting, or diarrhea. Patient denies any recent nausea, constipation, back pain, numbness, tingling, dizziness, weakness, hematuria, dysuria, urinary urgency, urinary frequency, headache, visual changes, or any other complaints. (Lurdes Haro) - Related Data Home Medications Medication Instructions Recorded Confirmed Multivitamins, Thera [Multivitamin 1 tab PO DAILY 05/19/18 12/20/18 (formulary)] Aspirin 81 mg PO DAILY 11/21/18 12/20/18 Atorvastatin [Lipitor] 80 mg PO HS 11/21/18 12/20/18 Esomeprazole Magnesium [NexIUM] 40 mg PO DAILY 11/21/18 12/20/18 Ipratropium-Albuterol Nebulize 3 ml INHALATION RT-QID PRN 11/21/18 12/20/18 [Duoneb 0.5 mg-3 mg/3 ml Soln] Cyclobenzaprine [Flexeril] 10 mg PO Q8H PRN 11/30/18 12/20/18 Tiotropium 18 Mcg/Puff [Spiriva] 1 puff INHALATION RT-DAILY 12/06/18 12/20/18 Previous Rx's Medication Instructions Recorded Gabapentin [Neurontin] 400 mg PO QID #120 cap 11/27/18 HYDROcodone/APAP 10-325MG [Ellamore 1 tab PO Q6H PRN #30 tab 11/27/18 10-325] Apixaban [Eliquis] 5 mg PO BID #20 tab 12/03/18 Budesonide-Formot 160-4.5 Mcg 2 puff INHALATION RT-BID #1 inhaler 12/03/18 [Symbicort 160-4.5 Mcg Inhaler] Digoxin 250 mcg PO DAILY #10 tablet 12/03/18 Diltiazem HCl 90 mg PO Q6H #40 tablet 12/03/18 Metoprolol Tartrate [Lopressor] 100 mg PO Q6H #40 tablet 12/03/18 Potassium Chloride ER [K-Dur 20] 20 meq PO BID #20 tab.er.prt 12/03/18 Tamsulosin HCl [Flomax] 0.4 mg PO HS #20 capsule 12/03/18 Furosemide [Lasix] 40 mg PO DAILY #30 tab 12/15/18 Sodium Bicarbonate Tab 325 mg PO TID #90 tab 12/15/18 predniSONE See Taper PO DIRECTED #48 tab 12/15/18 Allergies Allergy/AdvReac Type Severity Reaction Status Date / Time montelukast sodium AdvReac Itching Verified 12/20/18 07:11 [From Woody] Review of Systems ROS Other: All systems not noted in ROS Statement are negative. <Lurdes Haro - Last Filed: 12/20/18 05:08> ROS Other: All systems not noted in ROS Statement are negative. <John Le - Last Filed: 12/20/18 08:43> ROS Statement: Those systems with pertinent positive or pertinent negative responses have been documented in the HPI. 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 History of Any Multi-Drug Resistant Organisms: None Reported Past Surgical History: Adenoidectomy, Back Surgery, Heart Catheterization, Hernia Repair, Joint Replacement, Orthopedic Surgery, Tonsillectomy Additional Past Surgical History / Comment(s): L knee replacement, back surgery x3-failed fusion and 2 rods in lower back, L/R cataract surgery, bilat. rib removal (cervical), carpal tunnel R wrist, colonoscopy, L elbow surgery, abdominal hernia repair, 3 R inguinal hernia repairs, L inguinal hernia repair, rectal cystectomy.pain pump(ms) implanted -2017 removed 11/06/2018 Past Anesthesia/Blood Transfusion Reactions: Previous Problems w/ Anesthesia Additional Past Anesthesia/Blood Transfusion Reaction / Comment(s): With first surgery became belligerent when waking up. Past Psychological History: No Psychological Hx Reported Smoking Status: Former smoker Past Alcohol Use History: None Reported, Occasional Past Drug Use History: None Reported - Past Family History Mother Family Medical History: No Reported History Additional Family Medical History / Comment(s): Mother was healthy and lived to be 88 or 89yrs old. Father Family Medical History: Cancer Additional Family Medical History / Comment(s): Father of lung cancer in his early 70's. <Lurdes Haro - Last Filed: 12/20/18 05:08> General Exam General appearance: alert, in no apparent distress, other (Physical well- developed, well-nourished, elderly adult male patient in mild respiratory distress. Vital signs upon presentation are temperature 103.0F, pulse 64, respirations 26, blood pressure 165/122, pulse ox 80% on 5 L.) Eye exam: Present: normal appearance, PERRL, EOMI. Absent: scleral icterus, conjunctival injection, periorbital swelling ENT exam: Present: normal exam, normal oropharynx, mucous membranes moist Respiratory exam: Present: accessory muscle use (Abdominal), decreased breath sounds (Bilateral), other (Tachypneic). Absent: normal lung sounds bilaterally, respiratory distress, wheezes, rales, rhonchi, stridor Cardiovascular Exam: Present: bradycardia, irregular rhythm, normal heart sounds. Absent: systolic murmur, diastolic murmur, rubs, gallop, clicks GI/Abdominal exam: Present: soft, tenderness (Upper abdominal tenderness), normal bowel sounds. Absent: distended, guarding, rebound, rigid Neurological exam: Present: alert, oriented X3, CN II-XII intact Psychiatric exam: Present: normal affect, normal mood Skin exam: Present: warm, dry, intact, normal color. Absent: rash <Lurdes Haro Gurdeep - Last Filed: 12/20/18 05:08> Course Vital Signs 12/20/18 12/20/18 12/20/18 01:12 02:45 03:41 Temperature 103 F H 100.0 F H 100.5 F H Pulse Rate 64 62 Respiratory 26 H 22 24 Rate Blood Pressure 165/122 151/129 118/53 O2 Sat by Pulse 88 L 93 L Oximetry 12/20/18 12/20/18 12/20/18 04:19 04:36 06:10 Temperature 98.9 F Pulse Rate 70 72 67 Respiratory 22 20 15 Rate Blood Pressure 115/59 O2 Sat by Pulse 94 L Oximetry 12/20/18 12/20/18 07:14 07:25 Temperature 98.2 F Pulse Rate 67 65 Respiratory 19 24 Rate Blood Pressure 126/60 100/45 O2 Sat by Pulse 86 L 95 Oximetry Medical Decision Making - Lab Data Result diagrams: 12/20/18 01:10 12/20/18 01:10 - EKG Data -: EKG Interpreted by Tn - Radiology Data Radiology results: report reviewed, image reviewed <RadhaNorris palenciaina Gurdeep - Last Filed: 12/20/18 05:08> - Lab Data Result diagrams: 12/20/18 01:10 12/20/18 01:10 <John Le - Last Filed: 12/20/18 08:43> - Medical Decision Making I saw this patient in conjunction with the physician bindery library technical assistant. I performed independent history and physical exam. Agree with case management. (John Le) - Lab Data Lab Results 12/20/18 12/20/18 12/20/18 Range/Units 01:10 01:10 01:10 WBC 9.9 (3.8-10.6) k/uL RBC 3.24 L (4.30-5.90) m/uL Hgb 9.9 L (13.0-17.5) gm/dL Hct 31.0 L (39.0-53.0) % MCV 95.8 (80.0-100.0) fL MCH 30.5 (25.0-35.0) pg MCHC 31.8 (31.0-37.0) g/dL RDW 15.4 (11.5-15.5) % Plt Count 220 (150-450) k/uL Neutrophils % 82 % Lymphocytes % 13 % Monocytes % 3 % Eosinophils % 1 % Basophils % 0 % Neutrophils # 8.2 H (1.3-7.7) k/uL Lymphocytes # 1.2 (1.0-4.8) k/uL Monocytes # 0.3 (0-1.0) k/uL Eosinophils # 0.1 (0-0.7) k/uL Basophils # 0.0 (0-0.2) k/uL Hypochromasia Slight PT 10.5 (9.0-12.0) sec INR 1.0 (<1.2) APTT 23.4 (22.0-30.0) sec Sodium 137 (137-145) mmol/L Potassium 4.8 (3.5-5.1) mmol/L Chloride 100 (98-107) mmol/L Carbon Dioxide 32 H (22-30) mmol/L Anion Gap 5 mmol/L BUN 18 (9-20) mg/dL Creatinine 1.12 (0.66-1.25) mg/dL Est GFR (CKD-EPI)AfAm 77 (>60 ml/min/1.73 sqM) Est GFR (CKD-EPI)NonAf 66 (>60 ml/min/1.73 sqM) Glucose 95 (74-99) mg/dL Plasma Lactic Acid Isaac (0.7-2.0) mmol/L Calcium 8.3 L (8.4-10.2) mg/dL Total Bilirubin 0.6 (0.2-1.3) mg/dL AST 20 (17-59) U/L ALT 24 (21-72) U/L Alkaline Phosphatase 84 (38-126) U/L Troponin I (0.000-0.034) ng/mL NT-Pro-B Natriuret Pep pg/mL Total Protein 4.8 L (6.3-8.2) g/dL Albumin 2.5 L (3.5-5.0) g/dL Amylase <30 L (30-110) U/L Lipase 33 (23-300) U/L Influenza Type A RNA (Not Detectd) Influenza Type B (PCR) (Not Detectd) 12/20/18 12/20/18 12/20/18 Range/Units 01:10 01:10 02:50 WBC (3.8-10.6) k/uL RBC (4.30-5.90) m/uL Hgb (13.0-17.5) gm/dL Hct (39.0-53.0) % MCV (80.0-100.0) fL MCH (25.0-35.0) pg MCHC (31.0-37.0) g/dL RDW (11.5-15.5) % Plt Count (150-450) k/uL Neutrophils % % Lymphocytes % % Monocytes % % Eosinophils % % Basophils % % Neutrophils # (1.3-7.7) k/uL Lymphocytes # (1.0-4.8) k/uL Monocytes # (0-1.0) k/uL Eosinophils # (0-0.7) k/uL Basophils # (0-0.2) k/uL Hypochromasia PT (9.0-12.0) sec INR (<1.2) APTT (22.0-30.0) sec Sodium (137-145) mmol/L Potassium (3.5-5.1) mmol/L Chloride (98-107) mmol/L Carbon Dioxide (22-30) mmol/L Anion Gap mmol/L BUN (9-20) mg/dL Creatinine (0.66-1.25) mg/dL Est GFR (CKD-EPI)AfAm (>60 ml/min/1.73 sqM) Est GFR (CKD-EPI)NonAf (>60 ml/min/1.73 sqM) Glucose (74-99) mg/dL Plasma Lactic Acid Isaac (0.7-2.0) mmol/L Calcium (8.4-10.2) mg/dL Total Bilirubin (0.2-1.3) mg/dL AST (17-59) U/L ALT (21-72) U/L Alkaline Phosphatase (38-126) U/L Troponin I 0.119 H* (0.000-0.034) ng/mL NT-Pro-B Natriuret Pep 1660 pg/mL Total Protein (6.3-8.2) g/dL Albumin (3.5-5.0) g/dL Amylase (30-110) U/L Lipase (23-300) U/L Influenza Type A RNA Not Detected (Not Detectd) Influenza Type B (PCR) Not Detected (Not Detectd) 12/20/18 Range/Units 03:04 WBC (3.8-10.6) k/uL RBC (4.30-5.90) m/uL Hgb (13.0-17.5) gm/dL Hct (39.0-53.0) % MCV (80.0-100.0) fL MCH (25.0-35.0) pg MCHC (31.0-37.0) g/dL RDW (11.5-15.5) % Plt Count (150-450) k/uL Neutrophils % % Lymphocytes % % Monocytes % % Eosinophils % % Basophils % % Neutrophils # (1.3-7.7) k/uL Lymphocytes # (1.0-4.8) k/uL Monocytes # (0-1.0) k/uL Eosinophils # (0-0.7) k/uL Basophils # (0-0.2) k/uL Hypochromasia PT (9.0-12.0) sec INR (<1.2) APTT (22.0-30.0) sec Sodium (137-145) mmol/L Potassium (3.5-5.1) mmol/L Chloride (98-107) mmol/L Carbon Dioxide (22-30) mmol/L Anion Gap mmol/L BUN (9-20) mg/dL Creatinine (0.66-1.25) mg/dL Est GFR (CKD-EPI)AfAm (>60 ml/min/1.73 sqM) Est GFR (CKD-EPI)NonAf (>60 ml/min/1.73 sqM) Glucose (74-99) mg/dL Plasma Lactic Acid Isaac 1.1 (0.7-2.0) mmol/L Calcium (8.4-10.2) mg/dL Total Bilirubin (0.2-1.3) mg/dL AST (17-59) U/L ALT (21-72) U/L Alkaline Phosphatase (38-126) U/L Troponin I (0.000-0.034) ng/mL NT-Pro-B Natriuret Pep pg/mL Total Protein (6.3-8.2) g/dL Albumin (3.5-5.0) g/dL Amylase (30-110) U/L Lipase (23-300) U/L Influenza Type A RNA (Not Detectd) Influenza Type B (PCR) (Not Detectd) - EKG Data EKG Comments: EKG obtained at 0111 shows A. fib with a ventricular rate of 66, QRS duration 80, QT 354, QTC 371. No evidence of ST elevation or depression. Repeat EKG obtained at 0507 shows A. fib with a ventricular rate of 70, QRS duration 94, QT 392, QTC 423. No evidence of ST elevation or depression. (Lurdes Haro) - Radiology Data 2 views of the chest are obtained. Report was reviewed in its entirety. Impression by Dr. Remy shows diffuse airspace opacities, most pronounced at the lung bases suggesting an inflammatory infectious process. (Paul Haro) Disposition <Lurdes Haro - Last Filed: 12/20/18 05:08> Is patient prescribed a controlled substance at d/c from ED?: No <John Le - Last Filed: 12/20/18 08:43> Clinical Impression: Pneumonia, Elevated troponin Disposition: ADMITTED IP TO THIS HOSP Condition: Serious
[2018-12-20 03:23] LABS: Basophils % (A) 0 %; Eosinophils # (A) 0.1 k/uL (0-0.7); Eosinophils % (A) 1 %; HGB 9.9 gm/dL (13.0-17.5); Hypochromasia Slight; Lymphocytes # (A) 1.2 k/uL (1.0-4.8); Lymphocytes % (A) 13 %; MCH 30.5 pg (25.0-35.0); MCHC 31.8 g/dL (31.0-37.0); MCV 95.8 fL (80.0-100.0); Mean Platelet Volume 8.2; Monocytes # (A) 0.3 k/uL (0-1.0); Monocytes % (A) 3 %; Neutrophils # (A) 8.2 k/uL (1.3-7.7); Neutrophils % (A) 82 %; Platelet Count 220 k/uL (150-450); RBC 3.24 m/uL (4.30-5.90); RDW 15.4 % (11.5-15.5); WBC 9.9 k/uL (3.8-10.6)
[2018-12-20 03:27] LABS: ALT 24 U/L (21-72); AST 20 U/L (17-59); Albumin 2.5 g/dL (3.5-5.0); Alkaline Phosphatase 84 U/L (38-126); Amylase <30 U/L (30-110); Anion Gap 5 mmol/L; Blood Urea Nitrogen 18 mg/dL (9-20); Calcium 8.3 mg/dL (8.4-10.2); Carbon Dioxide 32 mmol/L (22-30); Chloride 100 mmol/L (98-107); Glucose 95 mg/dL (74-99); Lipase 33 U/L (23-300); Potassium 4.8 mmol/L (3.5-5.1); Sodium 137 mmol/L (137-145); Total Bilirubin 0.6 mg/dL (0.2-1.3); Total Protein 4.8 g/dL (6.3-8.2)
[2018-12-20 03:29] LABS: Partial Thromboplastin Time 23.4 sec (22.0-30.0); Prothrombin Time 10.5 sec (9.0-12.0)
[2018-12-20] MEDS ORDERED: LEVOFLOXACIN 750MG-D5W PMX 750 MG in DEXTROSE/WATER 1 150ML.BAG IVPB STA (04:00)
[2018-12-20] MEDS ORDERED: PIPERACILLIN-TAZOBACTAM 3.375 GM in SODIUM CHLORIDE 0.9% 100 ML IVPB STA (04:00)
--- NOTE | 2018-12-20 04:02 | XR ---
EXAM: XR Chest, 2 Views CLINICAL HISTORY: Fever TECHNIQUE: Frontal and lateral views of the chest. COMPARISON: Chest x-ray dated 12/12/2018 FINDINGS: Lungs: Diffuse airspace opacities, most pronounced within the lung bases suggesting an inflammatory or infectious process. Pleural space: Unremarkable. No pneumothorax. Heart: Unremarkable. No cardiomegaly. Mediastinum: Unremarkable. Bones/joints: Unremarkable. IMPRESSION: Diffuse airspace opacities, most pronounced within the lung bases suggesting an inflammatory or infectious process.
[2018-12-20] MEDS ORDERED: IPRATROPIUM 0.5 MG/2.5 ML NEBU INHALATION STA (04:04)
[2018-12-20] MEDS ORDERED: ALBUTEROL NEBULIZED 2.5 MG/3 ML INHALATION STA (04:04)
--- NOTE | 2018-12-20 05:16 | CT ---
EXAM: CT Abdomen and Pelvis With Intravenous Contrast CLINICAL HISTORY: None. TECHNIQUE: Axial computed tomography images of the abdomen and pelvis with intravenous contrast. CTDI is 0.242, 0.242, 16.5, 18 mGy and DLP is 1581. 5 mGy-cm. This CT exam was performed using one or more of the following dose reduction techniques: automated exposure control, adjustment of the mA and/or kV according to patient size, and/or use of iterative reconstruction technique. COMPARISON: CT abdomen and pelvis dated 11/08/2018 FINDINGS: Lung bases: Patchy areas of consolidation within the lower lungs likely representing an inflammatory or infectious process. ABDOMEN: Liver: Unremarkable. Gallbladder and bile ducts: Unremarkable. Pancreas: Unremarkable. Spleen: Unremarkable. Adrenals: 13 mm low-density lesion within the left adrenal gland which is incompletely characterized. Kidneys and ureters: Cysts within left kidney. Ossifications within both kidneys, the majority which are likely vascular. No hydronephrosis. Stomach and bowel: Mild wall thickening seen throughout the colon which may represent nonspecific inflammatory or infectious colitis. Question mild pneumatosis within the ascending colon. PELVIS: Appendix: No findings to suggest acute appendicitis. Bladder: Unremarkable. Reproductive: Unremarkable as visualized. ABDOMEN and PELVIS: Intraperitoneal space: Unremarkable. Bones/joints: Postsurgical changes within the spine. No acute fracture. No dislocation. Soft tissues: Unremarkable. Vasculature: Vascular calcifications. No abdominal aortic aneurysm. Lymph nodes: Unremarkable. IMPRESSION: 1. Patchy areas of consolidation within the lower lungs likely representing an inflammatory or infectious process. 2. Mild wall thickening throughout the colon which may represent nonspecific inflammatory or infectious colitis. Question mild pneumatosis within the ascending colon.
[2018-12-20] MEDS ORDERED: PNEUMONIA PROTOCOL UTILIZED 1 EACH MISC PO PRN (06:23)
[2018-12-20] MEDS: SODIUM CHLORIDE 0.9% 1,000 ML IV SCH (07:04)
[2018-12-20 14:09] LABS: Appearance,Urine Clear (Clear); Bilirubin,Urine Negative (Negative); Blood,Urine Negative (Negative); Color,Urine Yellow; Glucose,Urine (UA) Negative (Negative); Ketones,Urine Negative (Negative); Leukocyte Esterase,Urine Negative (Negative); Nitrite,Urine Negative (Negative); Protein,Urine 1+ (Negative); RBC,Urine 2 /hpf (0-5); Specific Gravity,Urine 1.043 (1.001-1.035); Urobilinogen,Urine <2.0 mg/dL (<2.0); WBC,Urine 1 /hpf (0-5)
[2018-12-20 14:10] VITALS: BMI 34.2
[2018-12-20] MEDS: PIPERACILLIN-TAZOBACTAM 3.375 GM in SODIUM CHLORIDE 0.9% 100 ML IVPB SCH (16:12)
[2018-12-20] MEDS ORDERED: NALOXONE 0.4 MG/ML 1 ML VIAL IV PRN (16:31)
[2018-12-20] MEDS ORDERED: ACETAMINOPHEN TAB 325 MG TAB PO PRN (16:31)
--- NOTE | 2018-12-20 16:48 | P.HPIM ---
History of Present Illness H&P Date: 12/20/18 Chief Complaint: Shortness of breath 68-year-old male with PMH of paroxysmal A. fib on Eliquis, history of CAD/CVA, CHF, chronic hypoxic respiratory failure secondary to COPD on 4 L oxygen presents the ED for shortness of breath and cough. Patient is currently on continuous BiPAP and is unable to provide much history. History is obtained from the ED note and chart review. Patient was recently admitted on 12/12/2018 and discharged on 12/15/2018 for acute on chronic hypoxic respiratory failure secondary to COPD and diastolic CHF. This is his fourth admission in December. Per ED report, patient reported worsening shortness of breath and increased swelling of his lower extremities. Patient also complained of chest pressure. Patient also complained of productive cough. Patient denies headache, nausea, vomiting, fever, chills, palpitations, changes in urination or bowel habits. No changes in appetite or weight. He denies any dizziness, numbness/weakness/tingling of the extremities. In the ED, his O2 saturation was low as 88%. Patient had a T-max of 103F. His vital signs were otherwise stable. CBC showed anemia of 9.9. CMP showed a bicarbonate of 32. Troponin was 0.119, EKG showing atrial fibrillation with ventricular rate of 70 bpm. BNP was 1660, chest x-ray showing diffuse airspace opacities suggesting inflammatory or infectious process. Influenza was negative. CT of the abdomen and pelvis showed possible infectious colitis. Patient is admitted for COPD exacerbation, hospital-acquired pneumonia, elevated troponins. Pulmonology and cardiology is consulted. Review of Systems Pertinent positives and negatives as discussed in HPI, a complete review of systems was performed and all other systems are negative. 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 History of Any Multi-Drug Resistant Organisms: None Reported Past Surgical History: Adenoidectomy, Back Surgery, Heart Catheterization, Hernia Repair, Joint Replacement, Orthopedic Surgery, Tonsillectomy Additional Past Surgical History / Comment(s): L knee replacement, back surgery x3-failed fusion and 2 rods in lower back, L/R cataract surgery, bilat. rib removal (cervical), carpal tunnel R wrist, colonoscopy, L elbow surgery, abdominal hernia repair, 3 R inguinal hernia repairs, L inguinal hernia repair, rectal cystectomy.pain pump(ms) implanted removed 11/06/2018 Past Anesthesia/Blood Transfusion Reactions: Previous Problems w/ Anesthesia Additional Past Anesthesia/Blood Transfusion Reaction / Comment(s): With first surgery became belligerent when waking up. Past Psychological History: No Psychological Hx Reported Additional Psychological History / Comment(s): Pt resides with his spouse. He uses a cane to ambulate. has nebulizer He drives. 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 Smoking Status: Former smoker Past Alcohol Use History: None Reported, Occasional Additional Past Alcohol Use History / Comment(s): No smoking since May 2018 Past Drug Use History: None Reported - Past Family History Mother Family Medical History: No Reported History Additional Family Medical History / Comment(s): Mother was healthy and lived to be 88 or 89yrs old. Father Family Medical History: Cancer Additional Family Medical History / Comment(s): Father of lung cancer in his early 70's. Medications and Allergies Home Medications Medication Instructions Recorded Confirmed Type Multivitamins, Thera [Multivitamin 1 tab PO DAILY 05/19/18 12/20/18 History (formulary)] Aspirin 81 mg PO DAILY 11/21/18 12/20/18 History Atorvastatin [Lipitor] 80 mg PO HS 11/21/18 12/20/18 History Esomeprazole Magnesium [NexIUM] 40 mg PO DAILY 11/21/18 12/20/18 History Ipratropium-Albuterol Nebulize 3 ml INHALATION RT-QID PRN 11/21/18 12/20/18 History [Duoneb 0.5 mg-3 mg/3 ml Soln] Gabapentin [Neurontin] 400 mg PO QID #120 cap 11/27/18 12/20/18 Rx HYDROcodone/APAP 10-325MG [[place] 1 tab PO Q6H PRN #30 tab 11/27/18 12/20/18 Rx 10-325] Cyclobenzaprine [Flexeril] 10 mg PO Q8H PRN 11/30/18 12/20/18 History Apixaban [Eliquis] 5 mg PO BID #20 tab 12/03/18 12/20/18 Rx Budesonide-Formot 160-4.5 Mcg 2 puff INHALATION RT-BID #1 inhaler 12/03/18 12/20/18 Rx [Symbicort 160-4.5 Mcg Inhaler] Digoxin 250 mcg PO DAILY #10 tablet 12/03/18 12/20/18 Rx Diltiazem HCl 90 mg PO Q6H #40 tablet 12/03/18 12/20/18 Rx Metoprolol Tartrate [Lopressor] 100 mg PO Q6H #40 tablet 12/03/18 12/20/18 Rx Potassium Chloride ER [K-Dur 20] 20 meq PO BID #20 tab.er.prt 12/03/18 12/20/18 Rx Tamsulosin HCl [Flomax] 0.4 mg PO HS #20 capsule 12/03/18 12/20/18 Rx Tiotropium 18 Mcg/Puff [Spiriva] 1 puff INHALATION RT-DAILY 12/06/18 12/20/18 History Furosemide [Lasix] 40 mg PO DAILY #30 tab 12/15/18 12/20/18 Rx Sodium Bicarbonate Tab 325 mg PO TID #90 tab 12/15/18 12/20/18 Rx predniSONE See Taper PO DIRECTED #48 tab 12/15/18 12/20/18 Rx Allergies Allergy/AdvReac Type Severity Reaction Status Date / Time montelukast sodium AdvReac Itching Verified 12/20/18 07:11 [From [facility]] Physical Exam Vitals: Vital Signs Temp Pulse Pulse Resp BP BP Pulse Ox 12/20/18 15:38 98.0 F 89 22 128/62 12/20/18 12:00 98.2 F 84 23 121/55 12/20/18 11:20 98.5 F 12/20/18 11:00 85 19 138/60 95 12/20/18 10:00 74 21 103/56 91 L 12/20/18 09:50 78 24 108/53 96 12/20/18 09:00 87 24 108/53 94 L 12/20/18 07:25 65 24 100/45 95 12/20/18 07:14 98.2 F 67 19 126/60 86 L 12/20/18 06:10 98.9 F 67 15 115/59 94 L 12/20/18 04:36 72 20 12/20/18 04:19 70 22 12/20/18 03:41 100.5 F H 24 118/53 12/20/18 02:45 100.0 F H 62 22 151/129 93 L 12/20/18 01:12 103 F H 64 26 H 165/122 88 L Intake and Output 12/20/18 12/20/18 12/20/18 06:59 14:59 22:59 Intake Total 100 Output Total 275 Balance -175 Intake: Intake, IV Titration 100 Amount Piperacillin-Tazobactam 3 100 .375 gm In Sodium Chloride 0.9% 100 ml @ 25 mls/hr IVPB Q8HR [facility] Rx# :[id number] Output: Urine 275 Other: Weight 95.254 kg 102 kg General: [non toxic], [mild distress on BiPAP], [appears at stated age] Derm: [warm], [dry] Head: [atraumatic], [normocephalic], [symmetric] Eyes: [EOMI], [no lid lag], [anicteric sclera] Mouth: [no lip lesion], [mucus membranes moist] Cardiovascular: [S1S2 reg], [irregularly regular], [positive DP pulse bilateral], Lungs: [Coarse breath sounds bilaterally but on BiPAP], [no rhonchi, no rales] , [no accessory muscle use] Abdominal: [soft], [ nontender to palpation], [no guarding], [no appreciable organomegaly] Ext: [no gross muscle atrophy], [no edema], [no contractures] Neuro: [ CN II-XI grossly intact], [no focal neuro deficits] Psych: [Alert], [oriented], [appropriate affect] Results CBC & Chem 7: 12/20/18 01:10 12/20/18 01:10 Labs: Abnormal Lab Results - Last 24 Hours (Table) 12/20/18 12/20/18 12/20/18 Range/Units 01:10 01:10 01:10 RBC 3.24 L (4.30-5.90) m/uL Hgb 9.9 L (13.0-17.5) gm/dL Hct 31.0 L (39.0-53.0) % Neutrophils # 8.2 H (1.3-7.7) k/uL Carbon Dioxide 32 H (22-30) mmol/L Calcium 8.3 L (8.4-10.2) mg/dL Troponin I 0.119 H* (0.000-0.034) ng/mL Total Protein 4.8 L (6.3-8.2) g/dL Albumin 2.5 L (3.5-5.0) g/dL Amylase <30 L (30-110) U/L Ur Specific [place] (1.001-1.035) Urine Protein (Negative) 12/20/18 12/20/18 Range/Units 08:51 13:49 RBC (4.30-5.90) m/uL Hgb (13.0-17.5) gm/dL Hct (39.0-53.0) % Neutrophils # (1.3-7.7) k/uL Carbon Dioxide (22-30) mmol/L Calcium (8.4-10.2) mg/dL Troponin I 0.164 H* (0.000-0.034) ng/mL Total Protein (6.3-8.2) g/dL Albumin (3.5-5.0) g/dL Amylase (30-110) U/L Ur Specific [place] 1.043 H (1.001-1.035) Urine Protein 1+ H (Negative) Thrombosis Risk Factor Assmnt - Choose All That Apply Each Factor Represents 1 point: Abnormal pulmonary function (COPD), Medical pt on bed rest, Obesity (BMI >25), Swollen legs (current) Other Risk Factors: Yes Each Risk Factor Represents 2 Points: Age 61-74 years Thrombosis Risk Factor Assessment Total Risk Factor Score: 6 Thrombosis Risk Factor Assessment Level: High Risk Assessment and Plan Assessment: Assessment and Plan Acute on chronic hypoxic respiratory failure secondary to COPD exacerbation and pneumonia COPD exacerbation Hospital-acquired pneumonia Elevated troponin Diastolic CHF Atrial fibrillation History of CAD/CVA Hypertension Hyperlipidemia DVT prophylaxis Multifactorial. Combination of hospital-acquired pneumonia and COPD. Plan: Optimize COPD medications. Continue IV antibiotics for treatment of pneumonia. Continue BiPAP and/or NC to maintain O2 saturation greater than 92%. Follow cardiology and pulmonology consult. On 3 L home O2. Plan: DuoNeb 4 times a day scheduled and as needed for shortness of breath or wheezing. Start Solu-Medrol IV. BiPAP and her NC to maintain O2 saturation greater than 92%. Follow pulmonology recommendations. Multiple hospital admissions in the last 19 days. Patient is febrile with T-max of 103F but has no leukocytosis. Chest x-ray shows diffuse airspace opacities, suggesting infectious process. Does not meet criteria for sepsis. Lactic acid negative. Plan: Continue levofloxacin and Zosyn IV. Maintain O2 saturation greater than 92%. Tylenol as needed for fever. Start Mucinex. Follow sputum culture and blood culture. Chest x-ray in the morning. Follow pulmonology consultation. Troponin 0.119, 0.164, with EKG showing atrial fibrillation. Likely demand ischemia. Echocardiogram October 2018 shows EF 55-60% with mild concentric LVH. Plan: Trend Trop/EKG to rule out ACS. Telemetry monitoring. Follow cardiology recommendations. Continue aspirin, Lipitor and beta noam. Echocardiogram as above. Appears euvolemic at this time. Plan: Continue beta noam. Continue Lasix by mouth. Follow cardiology recommendations. Currently rate controlled. Plan: Continue metoprolol and digoxin. Continue Eliquis. K > 4 and Mg > 2. Telemetry monitoring. Follow cardiology recommendations. Plan: Continue aspirin and Lipitor. Continue beta noam. BP 128/62. Plan: Continue diltiazem, metoprolol. Monitor vitals, adjust medications as necessary. Plan: Continue Lipitor. Plan: Heparin subcutaneously. Patient to remain full code. his decision maker. Patient has had multiple admissions recently, 5 admissions this month. We'll need to have discussion regarding palliative care when patient has improved. He is being treated for hospital-acquired pneumonia along with COPD exacerbation. Found to have elevated troponins. Pulmonology and cardiology is consulted. DVT prophylaxis: [Heparin] Discussed with: [Patient] Anticipated discharge: [Home] Anticipated discharge place: [1-2 days] A total of [45] minutes was spent on the care of this complex patient more than 50% of the time was spent in counseling and care coordination.
[2018-12-20] MEDS: METOPROLOL TARTRATE 50 MG TAB PO SCH ×2 (18:31→22:37)
[2018-12-20] MEDS: DILTIAZEM ORAL 30 MG TAB PO SCH ×2 (18:31→22:36)
[2018-12-20] MEDS: GABAPENTIN 400 MG CAP PO SCH ×2 (18:31→22:37)
[2018-12-20] MEDS: methylPREDNISolone SOD SUCCI 125 MG/2 ML VIAL IV SCH ×2 (18:32→22:36)
[2018-12-20] MEDS: HYDROcodone/APAP 10-325MG 1 EACH TAB PO PRN (18:33)
[2018-12-20] MEDS: IPRATROPIUM-ALBUTEROL 3 ML NEB INHALATION SCH (20:29)
[2018-12-20] MEDS: APIXABAN 5 MG TAB PO SCH (20:53)
[2018-12-20] MEDS: ATORVASTATIN 80 MG TAB PO SCH (20:53)
[2018-12-20] MEDS: TAMSULOSIN 0.4 MG CAP.ER.24H PO SCH (20:53)
[2018-12-20] MEDS: guaiFENesin 600 MG TABLET.ER PO SCH (20:53)
[2018-12-20] MEDS ORDERED: HEPARIN SODIUM,PORCINE 5,000 UNIT/ML 1 ML VIAL SQ SCH (21:00)
[2018-12-20] MEDS: SODIUM BICARBONATE TAB 650 MG TAB PO SCH (22:36)
[2018-12-21] MEDS: PIPERACILLIN-TAZOBACTAM 3.375 GM in SODIUM CHLORIDE 0.9% 100 ML IVPB SCH ×4 (00:53→23:35)
[2018-12-21] MEDS: methylPREDNISolone SOD SUCCI 125 MG/2 ML VIAL IV SCH ×4 (05:19→23:35)
[2018-12-21] MEDS: DILTIAZEM ORAL 30 MG TAB PO SCH ×4 (05:19→23:35)
[2018-12-21] MEDS: LEVOFLOXACIN 750MG-D5W PMX 750 MG in DEXTROSE/WATER 1 150ML.BAG IVPB SCH (05:19)
[2018-12-21] MEDS: METOPROLOL TARTRATE 50 MG TAB PO SCH ×4 (05:19→23:36)
[2018-12-21] MEDS: HYDROcodone/APAP 10-325MG 1 EACH TAB PO PRN ×2 (05:24→16:50)
[2018-12-21] MEDS: IPRATROPIUM-ALBUTEROL 3 ML NEB INHALATION SCH ×4 (07:26→19:07)
[2018-12-21 07:40] LABS: Glucose,Whole Blood 208 mg/dL (75-99)
[2018-12-21] MEDS: SODIUM BICARBONATE TAB 650 MG TAB PO SCH ×3 (08:25→21:50)
[2018-12-21] MEDS: guaiFENesin 600 MG TABLET.ER PO SCH ×2 (08:25→21:50)
[2018-12-21] MEDS: DIGOXIN 250 MCG TAB PO SCH (08:26)
[2018-12-21] MEDS: GABAPENTIN 400 MG CAP PO SCH ×4 (08:26→21:51)
[2018-12-21] MEDS: PANTOPRAZOLE 40 MG TABLET PO SCH (08:26)
[2018-12-21] MEDS: FUROSEMIDE 40 MG TAB PO SCH (08:26)
[2018-12-21] MEDS: APIXABAN 5 MG TAB PO SCH ×2 (08:26→21:50)
[2018-12-21] MEDS: ASPIRIN 81 MG PO SCH (08:26)
[2018-12-21] MEDS: SODIUM CHLORIDE 0.9% 1,000 ML IV SCH (08:27)
--- NOTE | 2018-12-21 09:50 | XR ---
EXAMINATION TYPE: XR chest 2V DATE OF EXAM: 12/21/2018 COMPARISON: 12/20/2018 TECHNIQUE: PA and lateral views submitted. HISTORY: pneumonia FINDINGS: Subsegmental consolidation the lung bases. The heart is enlarged and is atherosclerotic change aorta and biapical pleural thickening. AC joints demonstrate hypertrophic change and mild narrowing. Hyperi nflation suggests COPD and there is hypertrophic and degenerative change of the vertebral column. IMPRESSION: 1. Improving bilateral consolidation and interstitial pattern may represent improving pneumonia. Impr oving CHF also the differential diagnosis. 2. There is a nodule in the left upper lobe measuring 1.2 cm. This corresponds to the CT described le ft upper lobe pulmonary nodule. Malignancy in the differential diagnosis.
[2018-12-21 11:56] LABS: Glucose,Whole Blood 249 mg/dL (75-99)
[2018-12-21] MEDS: INSULIN ASPART (NovoLOG) 100 UNIT/ML VIAL SQ SCH ×3 (12:45→23:07)
--- NOTE | 2018-12-21 14:17 | P.CRDCN ---
History of Present Illness History of present illness: This is a pleasant 68-year-old male past medical history significant for paroxysmal atrial fibrillation, COPD and hypertension. He was recently admitted here in the intensive care unit secondary to hypoxic respiratory failure, shortness of breath and pneumonia. He was discharged home on December 15. Per his who is at the bedside she states on Friday he began coughing, had altered mental status, increased lethargy and was having fever/chills. Chest x- ray obtained on admission reveals diffuse airspace opacities suggesting inflammatory or infectious process. He has been started on IV antibiotics. We have been asked to see him in consultation secondary to elevated troponins. He is seen and examined resting comfortably sitting up in bed with family at the bedside. He continues to complain of cough and shortness of breath. He denies symptoms of chest discomfort, palpitations, dizziness, nausea, vomiting or diaphoresis. Initially upon arrival he was febrile at 103F. Initial EKG revealed sinus mechanism with no acute ST or T-wave abnormalities. Yesterday mo rning he went into atrial fibrillation with a heart rate of 70. Heart rate dependent controlled. He has since converted back to sinus mechanism. Echocardiogram obtained from previous admission revealed preserved LV systolic function with ejection fraction 55-60% with mild to moderate mitral regur gitation. Repeat chest x-ray this morning reveals improving bilateral consolidation and interstitial pattern. Laboratory data reviewed, WBC 9.9, hemoglobin 9.9, platelets 220, sodium 137, potassium 4.8, creatinine 1.12, troponin 0.119, 0.164, 0.086, NT proBNP 1660. Currently maintained on Eliquis 5 mg twice a day, aspirin 81 mg daily, atorvastatin 80 mg daily, digoxin 250 g daily, diltiazem 90 mg 4 times a day, Lasix 40 mg daily, Lopressor 100 mg 4 times a day and potassium supplementation. At the time of my exam: CONSTITUTIONAL: Denies fever. Denies chills. EYES: Denies blurred vision. Denies vision changes. Denies eye pain. EARS, NOSE, MOUTH & THROAT: Denies headache. Denies sore throat. Denies ear pain. CARDIOVASCULAR: Denies chest pain. Complains of shortness of breath. Denies or thopnea. Denies PND. Denies palpitations. RESPIRATORY: Complains of cough. GASTROINTESTINAL: Denies abdominal pain. Denies diarrhea. Denies constipation. Denies nausea. Denies vomiting. MUSCULOSKELETAL: Denies myalgias. INTEGUMENTARY: Denies pruitis. Denies rash. NEUROLOGIC: Denies numbness. Denies tingling. Denies weakness. PSYCHIATRIC: Denies anxiety. Denies depression. ENDOCRINE: Denies fatigue. Denies weight change. Denies polydipsia. Denies polyurina. GENITOURINARY: Denies burning, hematuria or urgency with micturation. HEMATOLOGIC: Denies history of anemia. Denies bleeding. Blood pressure 118/54 heart rate 61 afebrile maintaining oxygen saturation on nasal cannula GENERAL: This is a 68-year-old male in no apparent distress at the time of my examination. Obese. HEENT: Head is atraumatic, normocephalic. Pupils are equal, round. Sclerae anicteric. Conjunctivae are clear. Mucous membranes of the mouth are moist. Neck is supple. There is no jugular venous distention. No carotid bruit is heard. LUNGS: Faint expiratory wheeze, no rales or rhonchi. No chest wall tenderness is noted on palpation or with deep breathing. HEART: Regular rate and rhythm with systolic ejection murmur at the apex, no rubs or gallops. S1 and S2 heard. Distant heart sounds. ABDOMEN: Soft, nontender. Bowel sounds are heard. No organomegaly noted. EXTREMITIES: No evidence of peripheral edema and no calf tenderness noted. VASCULAR: Radial and dorsalis pedis pulses palpated, no evidence of clubbing. NEUROLOGIC: Patient is awake, alert and oriented x3. ASSESSMENT Pneumonia Mild troponin leak, not indicative of an acute coronary event. Probably related to hypoxia and febrile illness. No symptoms suggestive of angina and no EKG changes. COPD Paroxysmal atrial fibrillation on [facility] anticoagulation with controlled ventricular rates. Converted to sinus mechanism. Hypertension Obesity, BMI 34 PLAN Repeat limited echo to assess LV function. Clinically there is no evidence of angina and no EKG changes. Continue current medical regimen. Thank you kindly for this consultation. Nurse Practitioner note has been reviewed, I agree with a documented findings and plan of care. Patient was seen and examined. 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 History of Any Multi-Drug Resistant Organisms: None Reported Past Surgical History: Adenoidectomy, Back Surgery, Heart Catheterization, Hernia Repair, Joint Replacement, Orthopedic Surgery, Tonsillectomy Additional Past Surgical History / Comment(s): L knee replacement, back surgery x3-failed fusion and 2 rods in lower back, L/R cataract surgery, bilat. rib removal (cervical), carpal tunnel R wrist, colonoscopy, L elbow surgery, abdominal hernia repair, 3 R inguinal hernia repairs, L inguinal hernia repair, rectal cystectomy.pain pump(ms) implanted removed 11/06/2018 Past Anesthesia/Blood Transfusion Reactions: Previous Problems w/ Anesthesia Additional Past Anesthesia/Blood Transfusion Reaction / Comment(s): With first surgery became belligerent when waking up. Past Psychological History: No Psychological Hx Reported Additional Psychological History / Comment(s): Pt resides with his spouse. He uses a cane to ambulate. has nebulizer He drives. 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 Smoking Status: Former smoker Past Alcohol Use History: None Reported, Occasional Additional Past Alcohol Use History / Comment(s): No smoking since May 2018 Past Drug Use History: None Reported - Past Family History Mother Family Medical History: No Reported History Additional Family Medical History / Comment(s): Mother was healthy and lived to be 88 or 89yrs old. Father Family Medical History: Cancer Additional Family Medical History / Comment(s): Father of lung cancer in his early 70's. Medications and Allergies Home Medications Medication Instructions Recorded Confirmed Type Multivitamins, Thera [Multivitamin 1 tab PO DAILY 05/19/18 12/20/18 History (formulary)] Aspirin 81 mg PO DAILY 11/21/18 12/20/18 History Atorvastatin [Lipitor] 80 mg PO HS 11/21/18 12/20/18 History Esomeprazole Magnesium [NexIUM] 40 mg PO DAILY 11/21/18 12/20/18 History Ipratropium-Albuterol Nebulize 3 ml INHALATION RT-QID PRN 11/21/18 12/20/18 History [Duoneb 0.5 mg-3 mg/3 ml Soln] Gabapentin [Neurontin] 400 mg PO QID #120 cap 11/27/18 12/20/18 Rx HYDROcodone/APAP 10-325MG [[place] 1 tab PO Q6H PRN #30 tab 11/27/18 12/20/18 Rx 10-325] Cyclobenzaprine [Flexeril] 10 mg PO Q8H PRN 11/30/18 12/20/18 History Apixaban [Eliquis] 5 mg PO BID #20 tab 12/03/18 12/20/18 Rx Budesonide-Formot 160-4.5 Mcg 2 puff INHALATION RT-BID #1 inhaler 12/03/18 12/20/18 Rx [Symbicort 160-4.5 Mcg Inhaler] Digoxin 250 mcg PO DAILY #10 tablet 12/03/18 12/20/18 Rx Diltiazem HCl 90 mg PO Q6H #40 tablet 12/03/18 12/20/18 Rx Metoprolol Tartrate [Lopressor] 100 mg PO Q6H #40 tablet 12/03/18 12/20/18 Rx Potassium Chloride ER [K-Dur 20] 20 meq PO BID #20 tab.er.prt 12/03/18 12/20/18 Rx Tamsulosin HCl [Flomax] 0.4 mg PO HS #20 capsule 12/03/18 12/20/18 Rx Tiotropium 18 Mcg/Puff [Spiriva] 1 puff INHALATION RT-DAILY 12/06/18 12/20/18 History Furosemide [Lasix] 40 mg PO DAILY #30 tab 12/15/18 12/20/18 Rx Sodium Bicarbonate Tab 325 mg PO TID #90 tab 12/15/18 12/20/18 Rx predniSONE See Taper PO DIRECTED #48 tab 12/15/18 12/20/18 Rx Allergies Allergy/AdvReac Type Severity Reaction Status Date / Time montelukast sodium AdvReac Itching Verified 12/20/18 07:11 [From [facility]] Physical Exam Vitals: Vital Signs Temp Pulse Pulse Resp BP Pulse Ox 12/21/18 11:45 90 12/21/18 11:33 84 12/21/18 07:39 86 12/21/18 07:26 84 12/21/18 05:14 97.6 F 61 20 118/54 97 12/21/18 03:39 93 L 12/20/18 22:20 98.1 F 82 20 138/69 96 12/20/18 20:50 99.0 F 86 21 142/64 94 L 12/20/18 20:35 87 12/20/18 20:26 88 12/20/18 15:38 98.0 F 89 22 128/62 Intake and Output 12/20/18 12/21/18 12/21/18 22:59 06:59 14:59 Intake Total 340 Output Total 275 Balance 65 Intake: Intake, IV Titration 100 Amount Piperacillin-Tazobactam 3 100 .375 gm In Sodium Chloride 0.9% 100 ml @ 25 mls/hr IVPB Q8HR [facility] Rx# :[id number] Oral 240 Output: Urine 275 Other: Voiding Method Urinal Urinal # Voids 2 2 Results 12/20/18 01:10 12/20/18 01:10 Cardiac Enzymes 12/20/18 Range/Units 17:57 Troponin I 0.086 H* (0.000-0.034) ng/mL Current Medications Generic Name Dose Route Start Last Admin Trade Name Freq PRN Reason Stop Dose Admin Acetaminophen 650 mg 12/20/18 16:31 Tylenol Tab PO Q6HR PRN Mild Pain or Fever > 100.5 Hydrocodone Bitart/Acetaminophen 1 each 12/20/18 16:30 12/21/18 05:24 [place] 10 PO 1 each Q6H PRN Administration Pain Albuterol/Ipratropium 3 ml 12/20/18 20:00 12/21/18 11:33 Duoneb 0.5 Mg-3 Mg/3 Ml Soln INHALATION 3 ml RT-QID [facility] Administration Albuterol/Ipratropium 3 ml 12/20/18 16:39 Duoneb 0.5 Mg-3 Mg/3 Ml Soln INHALATION RT-QID PRN Shortness Of Breath Or Wheezing Apixaban 5 mg 12/20/18 21:00 12/21/18 08:26 Eliquis PO 5 mg BID [facility] Administration Aspirin 81 mg 12/21/18 09:00 12/21/18 08:26 Aspirin PO 81 mg DAILY [facility] Administration Atorvastatin Calcium 80 mg 12/20/18 21:00 12/20/18 20:53 Lipitor PO 80 mg HS [facility] Administration Digoxin 250 mcg 12/21/18 09:00 12/21/18 08:26 Lanoxin PO 250 mcg DAILY [facility] Administration Diltiazem HCl 90 mg 12/20/18 18:00 12/21/18 12:44 Cardizem Oral PO 90 mg Q6H [facility] Administration Furosemide 40 mg 12/21/18 09:00 12/21/18 08:26 Lasix PO 40 mg DAILY [facility] Administration Gabapentin 400 mg 12/20/18 18:00 12/21/18 12:44 Neurontin PO 400 mg QID [facility] Administration Guaifenesin 1,200 mg 12/20/18 21:00 12/21/18 08:25 Mucinex PO 1,200 mg Q12HR [facility] Administration Levofloxacin 750 mg/ IV 150 mls @ 100 mls/hr 12/21/18 05:00 12/21/18 05:19 Solution IVPB 100 mls/hr Q24H [facility] Administration Piperacillin Sod/Tazobactam 100 mls @ 25 mls/hr 12/20/18 16:00 12/21/18 08:26 Sod 3.375 gm/ Sodium Chloride IVPB 25 mls/hr Q8HR [facility] Administration Sodium Chloride 1,000 mls @ 20 mls/hr 12/20/18 06:30 12/21/18 08:27 Saline 0.9% IV Not Given .Q24H [facility] Insulin Aspart 0 unit 12/21/18 12:30 12/21/18 12:45 Novolog SQ 8 unit ACHS [facility] Administration Protocol Methylprednisolone Sodium Succinate 60 mg 12/20/18 18:00 12/21/18 12:44 Solu-Medrol IV 60 mg Q6HR [facility] Administration Metoprolol Tartrate 100 mg 12/20/18 18:00 12/21/18 12:44 Lopressor PO 100 mg Q6H [facility] Administration Miscellaneous Information 1 each 12/20/18 06:23 Pneumonia Protocol Utilized PO ONCE PRN Per Protocol Naloxone HCl 0.2 mg 12/20/18 16:31 Narcan IV Q2M PRN Opioid Reversal Pantoprazole Sodium 40 mg 12/21/18 07:30 12/21/18 08:26 Protonix PO 40 mg [id number] [facility] Administration Sodium Bicarbonate 325 mg 12/20/18 22:00 12/21/18 08:25 Sodium Bicarbonate Tab PO 325 mg TID [facility] Administration Tamsulosin HCl 0.4 mg 12/20/18 21:00 12/20/18 20:53 Flomax PO 0.4 mg HS [facility] Administration Intake and Output 12/20/18 12/21/18 12/21/18 22:59 06:59 14:59 Intake Total 340 Output Total 275 Balance 65 Intake: Intake, IV Titration 100 Amount Piperacillin-Tazobactam 3 100 .375 gm In Sodium Chloride 0.9% 100 ml @ 25 mls/hr IVPB Q8HR [facility] Rx# :[id number] Oral 240 Output: Urine 275 Other: Voiding Method Urinal Urinal # Voids 2 2 12/20/18 01:10 12/20/18 01:10
[2018-12-21 16:03] LABS: ABG Base Excess 6.5 mmol/L; ABG HCO3 30 mmol/L (21-25); ABG Oxygen Saturation 93.7 % (94-97); ABG PCO2 38 mmHg (35-45); ABG PO2 63 mmHg (83-108); ABG TCO2 31 mmol/L (19-24)
--- NOTE | 2018-12-21 16:18 | P.CNPUL ---
History of Present Illness Consult date: 12/21/18 Reason for consult: dyspnea History of present illness: 68-year-old male patient, obese, known history of COPD with chronic hypoxic respiratory failure, also known history of paroxysmal atrial fibrillation, who was recently admitted in the intensive care unit for acute hypoxic respiratory failure and shortness of breath and pneumonia. The patient was discharged home on 12/15/2018. The patient was completing his treatment on outpatient basis and it was noted that he started to have increased cough, altered mentation in addition to generalized weakness and lethargy and the patient started having high-grade fever and chills and for that reason to decided to bring this patient back to the hospital. The chest exit showed bilateral airspace disease suggestive of recurrent pneumonia. The patient was started on broad-spectrum antibiotics. The patient has a congested cough. Unable to bring up much sputum. He was briefly placed on a BiPAP at a time of admission and currently is back to oxygen at 3 L per minute nasal cannula. His EKG showed no acute ST segment abnormalities. His cardiac rhythm is still atrial fibrillation the pa tient on long-term antibiotic ventilation with Eliquis. Echocardiogram had showed a preserved LV function with an ejection fraction of 55-60% in addition to mild to moderate mitral regurgitation. ProBNP level was 1660. Troponins were 0.1 and 0.08 respectively. The patient's creatinine was at 1.1. The patient is currently on a combination of DuoNeb neb regimen sound the clock, IV Solu-Medrol, IV Zosyn and Levaquin, Lasix 40 mg by mouth daily, he did complain of some vague abdominal pain and some of admission and a CAT scan of the abdomen was done and the burst department showing some patchy areas of consolidation in the lower lung mcdaniel bilaterally. There was some mild wall thickening throughout the colon which may represent some nonspecific inflammatory changes/colitis. The patient has no diarrhea. No signs of any acute abdomen. No nausea. No vomiting. No diarrhea. No abdominal pain for the time being. Review of Systems Constitutional: Denies lethargy, denies malaise, Reports weakness, Denies chills, Denies fever Eyes: denies blurred vision, denies pain Ears, nose, mouth and throat: Denies headache, Denies sore throat Cardiovascular: Denies chest pain, Denies shortness of breath Respiratory: Reports congestion, Reports cough with sputum, Reports dyspnea, Reports hemoptysis, Reports home oxygen, Reports respiratory infections, the patient has a congested cough. Gastrointestinal: Denies abdominal pain, Denies diarrhea, Denies nausea, Denies vomiting Musculoskeletal: Denies myalgias Integumentary: Denies pruritus, Denies rash Neurological: Reports change in mentation, Denies numbness, Denies weakness Psychiatric: Denies anxiety, Denies depression Endocrine: Denies fatigue, Denies weight change Past Medical History Past Medical History: Coronary Artery Disease (CAD), Chest Pain / Angina, COPD, CVA/TIA, Eye Disorder, GERD/Reflux, Hyperlipidemia, Hypertension, Osteoarthritis (OA), Prostate Disorder Additional Past Medical History / Comment(s): BPH, 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 History of Any Multi-Drug Resistant Organisms: None Reported Past Surgical History: Adenoidectomy, Back Surgery, Heart Catheterization, Hernia Repair, Joint Replacement, Orthopedic Surgery, Tonsillectomy Additional Past Surgical History / Comment(s): L knee replacement, back surgery x3-failed fusion and 2 rods in lower back, L/R cataract surgery, bilat. rib removal (cervical), carpal tunnel R wrist, colonoscopy, L elbow surgery, abdominal hernia repair, 3 R inguinal hernia repairs, L inguinal hernia repair, rectal cystectomy.pain pump(ms) implanted removed 11/06/2018 Past Anesthesia/Blood Transfusion Reactions: Previous Problems w/ Anesthesia Additional Past Anesthesia/Blood Transfusion Reaction / Comment(s): With first surgery became belligerent when waking up. Past Psychological History: No Psychological Hx Reported Additional Psychological History / Comment(s): Pt resides with his spouse. He uses a cane to ambulate. has nebulizer He drives. 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 Smoking Status: Former smoker Past Alcohol Use History: None Reported, Occasional Additional Past Alcohol Use History / Comment(s): No smoking since May 2018 Past Drug Use History: None Reported - Past Family History Mother Family Medical History: No Reported History Additional Family Medical History / Comment(s): Mother was healthy and lived to be 88 or 89yrs old. Father Family Medical History: Cancer Additional Family Medical History / Comment(s): Father of lung cancer in h is early 70's. Medications and Allergies Home Medications Medication Instructions Recorded Confirmed Type Multivitamins, Thera [Multivitamin 1 tab PO DAILY 05/19/18 12/20/18 History (formulary)] Aspirin 81 mg PO DAILY 11/21/18 12/20/18 History Atorvastatin [Lipitor] 80 mg PO HS 11/21/18 12/20/18 History Esomeprazole Magnesium [NexIUM] 40 mg PO DAILY 11/21/18 12/20/18 History Ipratropium-Albuterol Nebulize 3 ml INHALATION RT-QID PRN 11/21/18 12/20/18 History [Duoneb 0.5 mg-3 mg/3 ml Soln] Gabapentin [Neurontin] 400 mg PO QID #120 cap 11/27/18 12/20/18 Rx HYDROcodone/APAP 10-325MG [Avis 1 tab PO Q6H PRN #30 tab 11/27/18 12/20/18 Rx 10-325] Cyclobenzaprine [Flexeril] 10 mg PO Q8H PRN 11/30/18 12/20/18 History Apixaban [Eliquis] 5 mg PO BID #20 tab 12/03/18 12/20/18 Rx Budesonide-Formot 160-4.5 Mcg 2 puff INHALATION RT-BID #1 inhaler 12/03/18 12/20/18 Rx [Symbicort 160-4.5 Mcg Inhaler] Digoxin 250 mcg PO DAILY #10 tablet 12/03/18 12/20/18 Rx Diltiazem HCl 90 mg PO Q6H #40 tablet 12/03/18 12/20/18 Rx Metoprolol Tartrate [Lopressor] 100 mg PO Q6H #40 tablet 12/03/18 12/20/18 Rx Potassium Chloride ER [K-Dur 20] 20 meq PO BID #20 tab.er.prt 12/03/18 12/20/18 Rx Tamsulosin HCl [Flomax] 0.4 mg PO HS #20 capsule 12/03/18 12/20/18 Rx Tiotropium 18 Mcg/Puff [Spiriva] 1 puff INHALATION RT-DAILY 12/06/18 12/20/18 History Furosemide [Lasix] 40 mg PO DAILY #30 tab 12/15/18 12/20/18 Rx Sodium Bicarbonate Tab 325 mg PO TID #90 tab 12/15/18 12/20/18 Rx predniSONE See Taper PO DIRECTED #48 tab 12/15/18 12/20/18 Rx Allergies Allergy/AdvReac Type Severity Reaction Status Date / Time montelukast sodium AdvReac Itching Verified 12/20/18 07:11 [From [facility]] Physical Exam Vitals: Vital Signs Temp Pulse Pulse Resp BP Pulse Ox 12/21/18 15:33 84 12/21/18 15:21 88 12/21/18 13:19 98.0 F 78 16 149/66 95 12/21/18 11:45 90 12/21/18 11:33 84 12/21/18 07:39 86 12/21/18 07:26 84 12/21/18 05:14 97.6 F 61 20 118/54 97 12/21/18 03:39 93 L 12/20/18 22:20 98.1 F 82 20 138/69 96 12/20/18 20:50 99.0 F 86 21 142/64 94 L 12/20/18 20:35 87 12/20/18 20:26 88 Intake and Output 12/21/18 12/21/18 12/21/18 06:59 14:59 22:59 Intake Total 500 Output Total 300 Balance 200 Intake: Oral 500 Output: Urine 300 Other: Voiding Method Urinal Urinal # Voids 2 # Bowel Movements 2 GENERAL EXAM: Alert, pleasant, 68-year-old male patient, the 5 L high flow nasal cannula with a pulse ox of 95%, comfortable in no apparent distress. HEAD: Normocephalic/atraumatic. EYES: Normal reaction of pupils, equal size. Conjunctiva pink, sclera white. NOSE: Clear with pink turbinates. THROAT: No erythema or exudates. NECK: No masses, no JVD, no thyroid enlargement, no adenopathy. CHEST: No chest wall deformity. Symmetrical expansion. LUNGS: Diminished breath sounds, with the expiratory wheezes and rhonchi at the bases, more so on the left CVS: Regular rate and rhythm, normal S1 and S2, no gallops, no murmurs, no rubs ABDOMEN: Soft, nontender. No hepatosplenomegaly, normal bowel sounds, no guarding or rigidity. EXTREMITIES: No clubbing, no edema, no cyanosis, 2+ pulses and upper and lower extremities. MUSCULOSKELETAL: Muscle strength and tone normal. SPINE: No scoliosis or deformity SKIN: No rashes CENTRAL NERVOUS SYSTEM: No focal deficits, tone is normal in all 4 extremities. PSYCHIATRIC: Alert and oriented -3. Appropriate affect. Intact judgment and insight. Results - Laboratory Findings CBC and BMP: 12/20/18 01:10 12/20/18 01:10 PT/INR, D-dimer PT 10.5 sec (9.0-12.0) 12/20/18 01:10 INR 1.0 (<1.2) 12/20/18 01:10 Abnormal lab findings: Abnormal Labs 12/20/18 12/20/18 12/20/18 01:10 01:10 01:10 RBC 3.24 L Hgb 9.9 L Hct 31.0 L Neutrophils # 8.2 H Carbon Dioxide 32 H POC Glucose (mg/dL) Calcium 8.3 L Troponin I 0.119 H* Total Protein 4.8 L Albumin 2.5 L Amylase <30 L Ur Specific [place] Urine Protein 12/20/18 12/20/18 12/20/18 08:51 13:49 17:57 RBC Hgb Hct Neutrophils # Carbon Dioxide POC Glucose (mg/dL) Calcium Troponin I 0.164 H* 0.086 H* Total Protein Albumin Amylase Ur Specific [place] 1.043 H Urine Protein 1+ H 12/21/18 12/21/18 07:39 11:55 RBC Hgb Hct Neutrophils # Carbon Dioxide POC Glucose (mg/dL) 208 H 249 H Calcium Troponin I Total Protein Albumin Amylase Ur Specific [place] Urine Protein - Diagnostic Findings Chest x-ray: image reviewed Assessment and Plan Plan: 1 acute bilateral lower lobe pneumonia, consider hospital-acquired pneumonia as the patient has been recently admitted for the same. 2 acute on chronic hypoxic respiratory failure, improving currently on 5 L of oxygen by nasal cannula 3 COPD CVA with an FEV1 of 1.59 L which is 40% predicted 4 chronic hypoxic respiratory failure secondary to above 5 chronic atrial fibrillation rate controlled on Eliquis 6 coronary artery disease 7 history of CVA/TIA 8 history of a small 1 cm solitary pulmonary nodule in the left upper lobe without any significant activity on recent PET scan. 9 hypertension 10 hyperlipidemia 13 osteoarthritis 14 BPH 15 irritable bowel syndrome [id number] smoking history quit in May 2018 17 acid reflux Plan Continue Zosyn and Levaquin. Appearance. Assessment and culture. Continue IV Solu Medrol. Continue Jeanette's. Sleep study on outpatient basis regarding the use of noninvasive positive pressure ventilation regarding his COPD and sleep apnea if this is been confirmed. We'll continue to follow.
[2018-12-21 17:07] LABS: Glucose,Whole Blood 292 mg/dL (75-99)
--- NOTE | 2018-12-21 17:24 | P.PN ---
Subjective Progress Note Date: 12/21/18 Principal diagnosis: COPD exacerbation Patient was seen and examined. No acute events overnight. Patient reports significant improvement in his breathing since admission. States that he is quite not back to baseline yet. He denies any chest pain or palpitations. No nausea or vomiting. No fever or chills. Saturating 95% on 5 L nasal cannula. Objective - Vital Signs Vital signs: Vital Signs Temp 98.0 F 12/21/18 13:19 Pulse 84 12/21/18 15:33 Resp 16 12/21/18 13:19 BP 149/66 12/21/18 13:19 Pulse Ox 95 12/21/18 13:19 Intake & Output 12/20/18 12/21/18 12/21/18 18:59 06:59 18:59 Intake Total 340 500 Output Total 275 300 Balance 65 200 Weight 102 kg Intake: Intake, IV Titration 100 Amount Piperacillin-Tazobactam 3 100 .375 gm In Sodium Chloride 0.9% 100 ml @ 25 mls/hr IVPB Q8HR [facility] Rx# :[id number] Oral 240 500 Output: Urine 275 300 Other: Voiding Method Urinal Urinal # Voids 2 # Bowel Movements 2 - Exam General: [non toxic], [no distress on NC], [appears at stated age] Derm: [warm], [dry] Head: [atraumatic], [normocephalic], [symmetric] Eyes: [EOMI], [no lid lag], [anicteric sclera] Mouth: [no lip lesion], [mucus membranes moist] Cardiovascular: [S1S2 reg], [irregularly regular], [positive DP pulse charline ateral], Lungs: [Decreased breath sounds bilaterally], [no rhonchi, no rales] , [no accessory muscle use] Abdominal: [soft], [ nontender to palpation], [no guarding], [no appreciable organomegaly] Ext: [no gross muscle atrophy], [no edema], [no contractures] Neuro: [no focal neuro deficits] Psych: [Alert], [oriented], [appropriate affect] - Labs CBC & Chem 7: 12/20/18 01:10 12/20/18 01:10 Labs: Abnormal Lab Results - Last 24 Hours (Table) 12/20/18 12/21/18 12/21/18 Range/Units 17:57 07:39 11:55 ABG pH (7.35-7.45) ABG pO2 (83-108) mmHg ABG HCO3 (21-25) mmol/L ABG Total CO2 (19-24) mmol/L ABG O2 Saturation (94-97) % POC Glucose (mg/dL) 208 H 249 H (75-99) mg/dL Troponin I 0.086 H* (0.000-0.034) ng/mL 12/21/18 12/21/18 Range/Units 15:58 17:06 ABG pH 7.50 H (7.35-7.45) ABG pO2 63 L (83-108) mmHg ABG HCO3 30 H (21-25) mmol/L ABG Total CO2 31 H (19-24) mmol/L ABG O2 Saturation 93.7 L (94-97) % POC Glucose (mg/dL) 292 H (75-99) mg/dL Troponin I (0.000-0.034) ng/mL Microbiology - Last 24 Hours (Table) 12/21/18 09:27 Sputum Culture - Preliminary Sputum 12/20/18 13:49 Urine Culture - Final Urine,Clean Catch 12/20/18 03:04 Blood Culture - Preliminary Blood No Growth after 24 hours Assessment and Plan Assessment: Assessment and Plan Acute on chronic hypoxic respiratory failure secondary to COPD exacerbation and pneumonia COPD exacerbation Hospital-acquired pneumonia Elevated troponin Diastolic CHF Atrial fibrillation History of CAD/CVA Hypertension Hyperlipidemia DVT prophylaxis Multifactorial. Combination of hospital-acquired pneumonia and COPD. Plan: Optimize COPD medications. Continue IV antibiotics for treatment of pneumonia. Continue BiPAP and/or NC to maintain O2 saturation greater than 92%. Follow cardiology and pulmonology consult. On 3 L home O2. Plan: DuoNeb 4 times a day scheduled and as needed for shortness of breath or wheezing. Start Solu-Medrol IV. BiPAP and her NC to maintain O2 saturation greater than 92%. Follow pulmonology recommendations. Multiple hospital admissions in the last 19 days. Patient is febrile with T-max of 103F but has no leukocytosis. Chest x-ray shows diffuse airspace opacities, suggesting infectious process. Does not meet criteria for sepsis. Lactic acid negative. Blood culture negative at 24 hours. Plan: Continue levofloxacin and Zosyn IV. Maintain O2 saturation greater than 92%. Tylenol as needed for fever. Start Mucinex. Follow sputum culture and blood culture. Chest x-ray in the morning. Follow pulmonology consultation. Troponin 0.119, 0.164, 0.086, with EKG showing atrial fibrillation, ACS ruled out. Likely demand ischemia. Echocardiogram October 2018 shows EF 55-60% with mild concentric LVH. Plan: Telemetry monitoring. Follow cardiology recommendations. Continue aspirin, Lipitor and beta noam. Follow echocardiogram. Echocardiogram as above. Appears euvolemic at this time. Plan: Continue beta noam. Continue Lasix by mouth. Follow echocardiogram. Follow cardiology recommendations. Currently rate controlled. Plan: Continue metoprolol and digoxin. Continue Eliquis. K > 4 and Mg > 2. Telemetry monitoring. Follow cardiology recommendations. Plan: Continue aspirin and Lipitor. Continue beta noam. BP 149/66. Plan: Continue diltiazem, metoprolol. Monitor vitals, adjust med ications as necessary. Plan: Continue Lipitor. Plan: Heparin subcutaneously. Patient to remain full code. his decision maker. Patient has had multiple admissions recently, 5 admissions this month. We'll need to have discussion regarding palliative care when his is here. He is being treated for hospital-acquired pneumonia along with COPD exacerbation. Found to have elevated troponins, echocardiogram ordered. Pulmonology and cardiology is consulted. He is pending clinical improvement. Likely DC in 1-2 days.
[2018-12-21] MEDS ORDERED: INSULIN ASPART (NovoLOG) 100 UNIT/ML VIAL SQ ONE (18:20)
[2018-12-21 20:33] LABS: Glucose,Whole Blood 332 mg/dL (75-99)
[2018-12-21] MEDS ORDERED: INSULIN REGULAR BOLUS (FROM DRIP BAG) IV ONE (21:35)
[2018-12-21] MEDS: ATORVASTATIN 80 MG TAB PO SCH (21:50)
[2018-12-21] MEDS: TAMSULOSIN 0.4 MG CAP.ER.24H PO SCH (21:52)
[2018-12-21 22:30] LABS: Glucose,Whole Blood 282 mg/dL (75-99)
[2018-12-21] MEDS: INSULIN REGULAR 100 UNIT in SODIUM CHLORIDE 0.9% 100 ML IV SCH (22:46)
[2018-12-21 23:48] LABS: Glucose,Whole Blood 249 mg/dL (75-99)
[2018-12-22 00:01] LABS: Glucose,Whole Blood 230 mg/dL (75-99)
[2018-12-22 02:00] LABS: Glucose,Whole Blood 144 mg/dL (75-99)
[2018-12-22] MEDS: HYDROcodone/APAP 10-325MG 1 EACH TAB PO PRN ×4 (03:34→23:23)
[2018-12-22] MEDS: IPRATROPIUM-ALBUTEROL 3 ML NEB INHALATION PRN ×2 (03:44→23:11)
[2018-12-22 04:02] LABS: Glucose,Whole Blood 103 mg/dL (75-99)
[2018-12-22] MEDS: LEVOFLOXACIN 750MG-D5W PMX 750 MG in DEXTROSE/WATER 1 150ML.BAG IVPB SCH (04:18)
[2018-12-22 05:12] LABS: Glucose,Whole Blood 223 mg/dL (75-99)
[2018-12-22] MEDS: methylPREDNISolone SOD SUCCI 125 MG/2 ML VIAL IV SCH ×4 (05:35→23:22)
[2018-12-22] MEDS: DILTIAZEM ORAL 30 MG TAB PO SCH ×4 (05:36→23:22)
[2018-12-22] MEDS: METOPROLOL TARTRATE 50 MG TAB PO SCH ×4 (05:36→23:22)
[2018-12-22] MEDS: SODIUM CHLORIDE 0.9% 1,000 ML IV SCH (05:39)
[2018-12-22 07:02] LABS: Glucose,Whole Blood 141 mg/dL (75-99)
--- NOTE | 2018-12-22 07:49 | ECHOF ---
Referral Reason:sob, elev trop MEASUREMENTS -------- HEIGHT: 172.7 cm WEIGHT: 101.6 kg BP: %FS: 45.62 % EDV(Teich): 125.54 ml EF(Teich): 76.67 % ESV(Teich): 29.29 ml IVSd: 1.04 cm (0.6 - 1.1) IVSs: 1.73 cm LVIDd: 5.13 cm (3.9 - 5.3) LVIDs: 2.79 cm LVPWd: 1.35 cm (0.6 - 1.1) LVPWs: 2.10 cm SV(Teich): 96.25 ml FINDINGS -------- Sinus rhythm. Limited Study The left ventricular size is normal. There is mild concentric left ventricular hypertrophy. Overa ll left ventricular systolic function is normal with, an EF between 55 - 60 %. CONCLUSIONS -------- 1. Sinus rhythm. 2. Limited Study 3. The left ventricular size is normal. 4. There is mild concentric left ventricular hypertrophy. 5. Overall left ventricular systolic function is normal with, an EF between 55 - 60 %. WRAPPER OFF: rAely Rivera [facility]
[2018-12-22] MEDS: IPRATROPIUM-ALBUTEROL 3 ML NEB INHALATION SCH ×4 (07:52→19:17)
[2018-12-22] MEDS: SODIUM BICARBONATE TAB 650 MG TAB PO SCH ×3 (08:09→20:59)
[2018-12-22] MEDS: guaiFENesin 600 MG TABLET.ER PO SCH ×2 (08:10→21:00)
[2018-12-22] MEDS: PANTOPRAZOLE 40 MG TABLET PO SCH (08:11)
[2018-12-22] MEDS: FUROSEMIDE 40 MG TAB PO SCH (08:11)
[2018-12-22] MEDS: GABAPENTIN 400 MG CAP PO SCH ×4 (08:11→20:59)
[2018-12-22] MEDS: ASPIRIN 81 MG PO SCH (08:11)
[2018-12-22] MEDS: APIXABAN 5 MG TAB PO SCH ×2 (08:11→21:00)
[2018-12-22] MEDS: DIGOXIN 250 MCG TAB PO SCH (08:12)
[2018-12-22] MEDS: INSULIN ASPART (NovoLOG) 100 UNIT/ML VIAL SQ SCH ×3 (08:12→18:17)
[2018-12-22 09:11] LABS: Glucose,Whole Blood 140 mg/dL (75-99)
[2018-12-22] MEDS: PIPERACILLIN-TAZOBACTAM 3.375 GM in SODIUM CHLORIDE 0.9% 100 ML IVPB SCH ×3 (09:34→23:22)
[2018-12-22 11:17] LABS: Glucose,Whole Blood 93 mg/dL (75-99)
--- NOTE | 2018-12-22 11:47 | P.PN ---
Subjective Progress Note Date: 12/22/18 48-year-old male patient with COPD and chronic hypoxic respiratory failure coming in for worsening shortness of breath and COPD exacerbation lower lobe pneumonia and fever and generalized weakness and some altered mentation. Significantly improved over the past 24 hours. Sputum has been collected for c ultures. Meanwhile, the patient is much less bronchospastic and wheezy. He is not having any labored breathing. No altered mentation. No fever or chills. No nausea or vomiting. No other complaints over the past 24 hours. The patient was given a combination of IV Solu Medrol, IV Zosyn and Levaquin and the patient was also diuresed with IV Lasix. The CAT scan of the abdomen was negative for any acute intra-abdominal findings. There was some colonic thickening. The patient does not have any diarrhea or abdominal pain for now. There is some lower lobe pulmonary infiltrates noted bilaterally. Objective - Vital Signs Vital signs: Vital Signs Temp 97.8 F 12/22/18 04:22 Pulse 88 12/22/18 11:32 Resp 18 12/22/18 04:22 BP 114/48 12/22/18 04:22 Pulse Ox 91 L 12/22/18 04:22 Intake & Output 12/21/18 12/22/18 12/22/18 18:59 06:59 18:59 Intake Total 500 31.974 14.658 Output Total 300 Balance 200 31.974 14.658 Intake: Intake, IV Titration 31.974 14.658 Amount Insulin Regular 100 unit 31.974 14.658 In Sodium Chloride 0.9% 100 ml @ Titrate IV .Q0M [facility] Rx#:[id number] Oral 500 Output: Urine 300 Other: Voiding Method Urinal Urinal Urinal # Voids 1 # Bowel Movements 2 - Exam GENERAL EXAM: Alert, pleasant, 68-year-old male patient, the 5 L high flow nasal cannula with a pulse ox of 95%, comfortable in no apparent distress. HEAD: Normocephalic/atraumatic. EYES: Normal reaction of pupils, equal size. Conjunctiva pink, sclera white. NOSE: Clear with pink turbinates. THROAT: No erythema or exudates. NECK: No masses, no JVD, no thyroid enlargement, no adenopathy. CHEST: No chest wall deformity. Symmetrical expansion. LUNGS: Diminished breath sounds, with the expiratory wheezes and rhonchi at the bases, more so on the left CVS: Regular rate and rhythm, normal S1 and S2, no gallops, no murmurs, no rubs ABDOMEN: Soft, nontender. No hepatosplenomegaly, normal bowel sounds, no guarding or rigidity. EXTREMITIES: No clubbing, no edema, no cyanosis, 2+ pulses and upper and lower extremities. MUSCULOSKELETAL: Muscle strength and tone normal. SPINE: No scoliosis or deformity SKIN: No rashes CENTRAL NERVOUS SYSTEM: No focal deficits, tone is normal in all 4 extremities. PSYCHIATRIC: Alert and oriented -3. Appropriate affect. Intact judgment and insight. - Labs CBC & Chem 7: 12/20/18 01:10 12/20/18 01:10 Labs: Abnormal Lab Results - Last 24 Hours (Table) 12/21/18 12/21/18 12/21/18 Range/Units 11:55 15:58 17:06 ABG pH 7.50 H (7.35-7.45) ABG pO2 63 L (83-108) mmHg ABG HCO3 30 H (21-25) mmol/L ABG Total CO2 31 H (19-24) mmol/L ABG O2 Saturation 93.7 L (94-97) % POC Glucose (mg/dL) 249 H 292 H (75-99) mg/dL 12/21/18 12/21/18 12/21/18 Range/Units 20:31 22:24 23:28 ABG pH (7.35-7.45) ABG pO2 (83-108) mmHg ABG HCO3 (21-25) mmol/L ABG Total CO2 (19-24) mmol/L ABG O2 Saturation (94-97) % POC Glucose (mg/dL) 332 H 282 H 249 H (75-99) mg/dL 12/21/18 12/22/18 12/22/18 Range/Units 23:59 01:59 03:42 ABG pH (7.35-7.45) ABG pO2 (83-108) mmHg ABG HCO3 (21-25) mmol/L ABG Total CO2 (19-24) mmol/L ABG O2 Saturation (94-97) % POC Glucose (mg/dL) 230 H 144 H 103 H (75-99) mg/dL 05/12/22/18 12/22/18 Range/Units 05:02 07:00 09:09 ABG pH (7.35-7.45) ABG pO2 (83-108) mmHg ABG HCO3 (21-25) mmol/L ABG Total CO2 (19-24) mmol/L ABG O2 Saturation (94-97) % POC Glucose (mg/dL) 223 H 141 H 140 H (75-99) mg/dL Microbiology - Last 24 Hours (Table) 12/20/18 03:04 Blood Culture - Preliminary Blood No Growth after 48 hours 12/21/18 09:27 Gram Stain - Preliminary Sputum Sputum Culture - Preliminary 12/20/18 13:49 Urine Culture - Final Urine,Clean Catch Assessment and Plan Plan: 1 acute bilateral lower lobe pneumonia, consider hospital-acquired pneumonia as the patient has been recently admitted for the same. Clinically the patient is improved significantly. Sputum Gram stain and cultures still pending for now. Meanwhile, the patient is receiving Zosyn and Levaquin IV and the patient is also being treated for an acute COPD exacerbation much improved compared to yesterday. 2 acute on chronic hypoxic respiratory failure, improved him a currently on 4l of oxygen nasal cannula 3 COPD CVA with an FEV1 of 1.59 L which is 40% predicted 4 chronic hypoxic respiratory failure secondary to above 5 chronic atrial fibrillation rate controlled on Eliquis 6 coronary artery disease 7 history of CVA/TIA 8 history of a small 1 cm solitary pulmonary nodule in the left upper lobe wit hout any significant activity on recent PET scan. 9 hypertension 10 hyperlipidemia 13 osteoarthritis 14 BPH 15 irritable bowel syndrome 16 [id number] smoking history quit in May 2018 17 acid reflux Plan Continue Zosyn and Levaquin. Appearance. Assessment and culture. Continue IV Solu Medrol. Continue DuoNeb's. Clinically much improved and will start tapering steroids as of tomorrow. Awaiting sputum Gram stain and culture. Ablate this patient the hallway. Repeat chest x-ray in a.m. We'll continue to follow.
[2018-12-22 12:37] LABS: Glucose,Whole Blood 146 mg/dL (75-99)
[2018-12-22 14:59] LABS: Glucose,Whole Blood 322 mg/dL (75-99)
--- NOTE | 2018-12-22 15:03 | P.PN ---
Subjective This is a pleasant 68-year-old male past medical history significant for paroxysmal atrial fibrillation, COPD and hypertension. He was recently admitted here in the intensive care unit secondary to hypoxic respiratory failure, shortness of breath and pneumonia. He was discharged home on December 15. Per his who is at the bedside she states on Friday he began coughing, had altered mental status, increased lethargy and was having fever/chills. Chest x- ray obtained on admission reveals diffuse airspace opacities suggesting inflam matory or infectious process. He has been started on IV antibiotics. We have been asked to see him in consultation secondary to elevated troponins. He is seen and examined resting comfortably sitting up in bed with family at the bedside. He continues to complain of cough and shortness of breath. He denies symptoms of chest discomfort, palpitations, dizziness, nausea, vomiting or diaphoresis. Initially upon arrival he was febrile at 103F. Initial EKG revealed sinus mechanism with no acute ST or T-wave abnormalities. Yesterday morning he went into atrial fibrillation with a heart rate of 70. Heart rate dependent controlled. He has since converted back to sinus mechanism. Echocardiogram obtained from previous admission revealed preserved LV systolic function with ejection fraction 55-60% with mild to moderate mitral regurgitation. Repeat chest x-ray this morning reveals improving bilateral consolidation and interstitial pattern. Laboratory data reviewed, WBC 9.9, hemoglobin 9.9, platelets 220, sodium 137, potassium 4.8, creatinine 1.12, troponin 0.119, 0.164, 0.086, NT proBNP 1660. Currently maintained on Eliquis 5 mg twice a day, aspirin 81 mg daily, atorvastatin 80 mg daily, digoxin 250 g daily, diltiazem 90 mg 4 times a day, Lasix 40 mg daily, Lopressor 100 mg 4 t imes a day and potassium supplementation. 12/22/2017 Pt is seen and examined sitting up in bed in no acute distress. He states overall he is feeling much better since admission. He denies significant shortness of breath, no chest pain, no dizziness, no palpitations, no nausea, vomiting or diaphoresis. Limited echo reveals preserved LV systolic function with ejection fraction 55-60%. Blood pressure 140/67 heart rate 78 afebrile maintaining oxygen saturation on nasal cannula. Telemetry tracings have been unremarkable. GENERAL: This is a 68-year-old male in no apparent distress at the time of my examination. Obese. HEENT: Head is atraumatic, normocephalic. Pupils are equal, round. Sclerae anicteric. Conjunctivae are clear. Mucous membranes of the mouth are moist. Neck is supple. There is no jugular venous distention. No carotid bruit is heard. LUNGS: Ongoing expiratory wheeze, no rales or rhonchi. No chest wall tenderness is noted on palpation or with deep breathing. HEART: Regular rate and rhythm with systolic ejection murmur at the apex, no rubs or gallops. S1 and S2 heard. Distant heart sounds. EXTREMITIES: No evidence of peripheral edema and no calf tenderness noted. ASSESSMENT Pneumonia Mild troponin leak, not indicative of an acute coronary event. Probably related to hypoxia and febrile illness. No symptoms suggestive of angina and no EKG changes. COPD Paroxysmal atrial fibrillation on fdc anticoagulation with controlled ventricular rates. Converted to sinus mechanism. Hypertension Obesity, BMI 34 PLAN Stable from a cardiac perspective. No evidence of an acute coronary event. Mild troponin elevation secondary to oxygen supply and demand mismatch. Ongoing medical management. Follow-up with Dr. Helton in the office upon discharge. We will continue to follow as needed. Nurse Practitioner note has been reviewed, I agree with a documented findings and plan of care. Patient was seen and examined. Objective - Vital Signs Vital signs: Vital Signs Temp 98.4 F 12/22/18 12:41 Pulse 78 12/22/18 12:41 Resp 18 12/22/18 12:41 BP 148/67 12/22/18 12:41 Pulse Ox 92 L 12/22/18 12:41 Intake & Output 12/21/18 12/22/18 12/22/18 18:59 06:59 18:59 Intake Total 500 31.974 21.858 Output Total 300 Balance 200 31.974 21.858 Intake: Intake, IV Titration 31.974 21.858 Amount Insulin Regular 100 unit 31.974 21.858 In Sodium Chloride 0.9% 100 ml @ Titrate IV .Q0M [facility] Rx#:[id number] Oral 500 Output: Urine 300 Other: Voiding Method Urinal Urinal Urinal # Voids 1 # Bowel Movements 2 - Labs CBC & Chem 7: 12/20/18 01:10 12/20/18 01:10 Labs: Abnormal Lab Results - Last 24 Hours (Table) 12/21/18 12/21/18 12/21/18 Range/Units 15:58 17:06 20:31 ABG pH 7.50 H (7.35-7.45) ABG pO2 63 L (83-108) mmHg ABG HCO3 30 H (21-25) mmol/L ABG Total CO2 31 H (19-24) mmol/L ABG O2 Saturation 93.7 L (94-97) % POC Glucose (mg/dL) 292 H 332 H (75-99) mg/dL 12/21/18 12/21/18 12/21/18 Range/Units 22:24 23:28 23:59 ABG pH (7.35-7.45) ABG pO2 (83-108) mmHg ABG HCO3 (21-25) mmol/L ABG Total CO2 (19-24) mmol/L ABG O2 Saturation (94-97) % POC Glucose (mg/dL) 282 H 249 H 230 H (75-99) mg/dL 12/22/18 12/22/18 12/22/18 Range/Units 01:59 03:42 05:02 ABG pH (7.35-7.45) ABG pO2 (83-108) mmHg ABG HCO3 (21-25) mmol/L ABG Total CO2 (19-24) mmol/L ABG O2 Saturation (94-97) % POC Glucose (mg/dL) 144 H 103 H 223 H (75-99) mg/dL 12/22/18 12/22/18 12/22/18 Range/Units 07:00 09:09 12:35 ABG pH (7.35-7.45) ABG pO2 (83-108) mmHg ABG HCO3 (21-25) mmol/L ABG Total CO2 (19-24) mmol/L ABG O2 Saturation (94-97) % POC Glucose (mg/dL) 141 H 140 H 146 H (75-99) mg/dL 12/22/18 Range/Units 14:56 ABG pH (7.35-7.45) ABG pO2 (83-108) mmHg ABG HCO3 (21-25) mmol/L ABG Total CO2 (19-24) mmol/L ABG O2 Saturation (94-97) % POC Glucose (mg/dL) 322 H (75-99) mg/dL Microbiology - Last 24 Hours (Table) 12/20/18 03:04 Blood Culture - Preliminary Blood No Growth after 48 hours 12/21/18 09:27 Gram Stain - Preliminary Sputum Sputum Culture - Preliminary 12/20/18 13:49 Urine Culture - Final Urine,Clean Catch
[2018-12-22 17:08] LABS: Glucose,Whole Blood 295 mg/dL (75-99)
[2018-12-22] MEDS: INSULIN REGULAR 100 UNIT in SODIUM CHLORIDE 0.9% 100 ML IV SCH (18:11)
--- NOTE | 2018-12-22 18:26 | P.PN ---
Subjective Progress Note Date: 12/22/18 Principal diagnosis: The patient is an obese 68-year-old male with a past medical history of COPD known to be oxygen dependent with chronic respiratory failure with a bas roxane of 4 L via nasal cannula. The patient was admitted with acute on chronic respiratory failure and was placed on BiPAP in the ER after failing his outpatient treatment for pneumonia, repeat chest x-ray showed bilateral airspace disease suggestive of a recurrent pneumonia and he was started on broad spectrum antibiotics after he presented back to the ER with increased cough altered mentation generalized weakness and with high-grade fevers tmax 103. The patient was started empirically on Levaquin and Zosyn, and sputum blood cultures were ordered. The patient was noted to have a mild elevation of his troponin at 0.086 with a NT proBNP of 1660. EKG showed no acute ST abnormalities she just of ischemia, echocardiogram showed a preserved LVEF of 55-60% with mild to moderate MR. The patient has a history of paroxysmal A. fib and was continued on DOAC with ELiquis 5mg PO BID and diltiazem 90 mg PO QID. computed tomography scan of the abdomen and pelvis was negative for any acute insert abdominal pathology but did show some colonic thickening The patient is up ambulatory [id number] from the bathroom is fatigued and dyspneic with exertion but states that he's feeling much better today, he denies any chest pain dizziness palpitations nausea or vomiting. Patient has been able to maintain normal oxygen saturation times baseline O2 requirement Objective - Vital Signs Vital signs: Vital Signs Temp 98.4 F 12/22/18 12:41 Pulse 82 12/22/18 15:45 Resp 18 12/22/18 12:41 BP 148/67 12/22/18 12:41 Pulse Ox 92 L 12/22/18 12:41 Intake & Output 12/21/18 12/22/18 12/22/18 18:59 06:59 18:59 Intake Total 500 31.974 150.983 Output Total 300 500 Balance 200 31.974 -349.017 Intake: Intake, IV Titration 31.974 150.983 Amount Insulin Regular 100 unit 31.974 50.983 In Sodium Chloride 0.9% 100 ml @ Titrate IV .Q0M [facility] Rx#:[id number] Piperacillin-Tazobactam 3 100 .375 gm In Sodium Chloride 0.9% 100 ml @ 25 mls/hr IVPB Q8HR [facility] Rx# :[id number] Oral 500 Output: Urine 300 500 Other: Voiding Method Urinal Urinal Urinal # Voids 1 # Bowel Movements 2 2 - Exam Constitutional: No acute distress, conversant, pleasant Eyes: Anicteric sclerae, moist conjunctiva, no lid-lag, PERRLA ENMT: NC/AT,Oropharynx clear, no erythema, exudates Neck:Supple, FROM, no masses, or JVD, No carotid bruits; No thyromegaly Lungs: Noted ongoing expiratory wheeze Normal respiratory effort, no accessory muscle use Cardiovascular: Heart regular in rate and rhythm, No murmurs, gallops, or rubs no peripheral edema Abdominal: Soft Nontender, nom distended, no guarding, no rebound or rigidity, Normoactive bowel sounds No hepatomegaly, No splenomegaly, No palpable mass No abdominal wall hernia noted Skin: Normal temperature, tone, texture, turgor, No induration No subcutaneous nodules, No rash, lesions, No ulcers Extremities:No digital cyanosis No clubbing, Pedal pulses intact and symmetrical Radial pulses intact and symmetrical Normal gait and station, No calf tenderness Psychiatric: Alert and oriented to person, place and time, Appropriate affect Intact judgement Neuro: Muscles Strength 5/5 in all 4 extremities, Sensation to light touch grossly present throughout, Cranial nerves II-XII grossly intact. No focal sensory deficits - Labs CBC & Chem 7: 12/20/18 01:10 12/20/18 01:10 Labs: Abnormal Lab Results - Last 24 Hours (Table) 12/21/18 12/21/18 12/21/18 Range/Units 20:31 22:24 23:28 POC Glucose (mg/dL) 332 H 282 H 249 H (75-99) mg/dL 12/21/18 12/22/18 12/22/18 Range/Units 23:59 01:59 03:42 POC Glucose (mg/dL) 230 H 144 H 103 H (75-99) mg/dL 12/22/18 12/22/18 12/22/18 Range/Units 05:02 07:00 09:09 POC Glucose (mg/dL) 223 H 141 H 140 H (75-99) mg/dL 12/22/18 12/22/18 12/22/18 Range/Units 12:35 14:56 17:03 POC Glucose (mg/dL) 146 H 322 H 295 H (75-99) mg/dL Microbiology - Last 24 Hours (Table) 12/20/18 03:04 Blood Culture - Preliminary Blood No Growth after 48 hours 12/21/18 09:27 Gram Stain - Preliminary Sputum Sputum Culture - Preliminary Assessment and Plan (1) Acute and chronic respiratory failure with hypoxia Narrative/Plan: * Now resolved back to baseline * Secondary to recurrent presumed HCAP superimposed on acute COPD exacerbation, pulmonary following appreciate recommendations * Continue breathing treatments, systemic steroids and antibiotics Current Visit: No Status: Acute Code(s): J96.21 - ACUTE AND CHRONIC RESPIRATORY FAILURE WITH HYPOXIA SNOMED Code(s): 61189105 (2) Elevated troponin Narrative/Plan: * type 2 demand ischemic type infant secondary to hypoxia * Not consistent with ACS * Patient continued on aspirin statin therapy Current Visit: Yes Status: Acute Code(s): R74.8 - ABNORMAL LEVELS OF OTHER SERUM ENZYMES SNOMED Code(s): 790176069 (3) Acute exacerbation of chronic obstructive airways disease Narrative/Plan: * Likely triggered by recurrent pneumonia, sputum cultures are pending * Continue systemic steroids with IV Solu-Medrol, continue Mucinex Current Visit: No Status: Acute Code(s): J44.1 - CHRONIC OBSTRUCTIVE PULMONARY DISEASE W (ACUTE) EXACERBATION SNOMED Code(s): 616371713 (4) HCAP (healthcare-associated pneumonia) Narrative/Plan: * Continue antibiotics currently on Levaquin and Zosyn Current Visit: No Status: Acute Code(s): J18.9 - PNEUMONIA, UNSPECIFIED ORGANISM SNOMED Code(s): 394193223 (5) Atrial fibrillation with RVR Narrative/Plan: * Paroxysmal currently in sinus rhythm * Continue metoprolol diltiazem and DOAC with Eliquis Current Visit: No Status: Chronic Code(s): I48.91 - UNSPECIFIED ATRIAL FIBRILLATION SNOMED Code(s): 781466470535610 Plan: * Appears clinically improved per pulmonary plan to taper her steroids beginning tomorrow * We'll follow up repeat chest x-ray and sputum cultures
[2018-12-22 18:38] LABS: Hemoglobin A1C 6.7 % (4.0-6.0)
[2018-12-22 18:56] LABS: Glucose,Whole Blood 279 mg/dL (75-99)
[2018-12-22 20:55] LABS: Glucose,Whole Blood 202 mg/dL (75-99)
[2018-12-22] MEDS: TAMSULOSIN 0.4 MG CAP.ER.24H PO SCH (20:59)
[2018-12-22] MEDS: ATORVASTATIN 80 MG TAB PO SCH (20:59)
[2018-12-22 23:12] LABS: Glucose,Whole Blood 173 mg/dL (75-99)
[2018-12-23 01:00] LABS: Glucose,Whole Blood 195 mg/dL (75-99)
[2018-12-23] MEDS: IPRATROPIUM-ALBUTEROL 3 ML NEB INHALATION PRN ×2 (03:20→23:41)
[2018-12-23 03:24] LABS: Glucose,Whole Blood 154 mg/dL (75-99)
[2018-12-23 05:00] LABS: Glucose,Whole Blood 149 mg/dL (75-99)
[2018-12-23] MEDS: methylPREDNISolone SOD SUCCI 125 MG/2 ML VIAL IV SCH ×4 (05:44→23:22)
[2018-12-23] MEDS: METOPROLOL TARTRATE 50 MG TAB PO SCH ×4 (05:45→23:22)
[2018-12-23] MEDS: HYDROcodone/APAP 10-325MG 1 EACH TAB PO PRN ×2 (05:45→16:53)
[2018-12-23] MEDS: DILTIAZEM ORAL 30 MG TAB PO SCH ×4 (05:45→23:21)
[2018-12-23 06:51] LABS: Glucose,Whole Blood 173 mg/dL (75-99)
[2018-12-23] MEDS: IPRATROPIUM-ALBUTEROL 3 ML NEB INHALATION SCH ×4 (07:16→19:46)
[2018-12-23] MEDS: PIPERACILLIN-TAZOBACTAM 3.375 GM in SODIUM CHLORIDE 0.9% 100 ML IVPB SCH (08:28)
[2018-12-23] MEDS: INSULIN ASPART (NovoLOG) 100 UNIT/ML VIAL SQ SCH ×3 (08:30→17:57)
[2018-12-23] MEDS: SODIUM BICARBONATE TAB 650 MG TAB PO SCH ×3 (08:31→22:34)
[2018-12-23] MEDS: guaiFENesin 600 MG TABLET.ER PO SCH ×2 (08:31→22:34)
[2018-12-23] MEDS: PANTOPRAZOLE 40 MG TABLET PO SCH (08:32)
[2018-12-23] MEDS: APIXABAN 5 MG TAB PO SCH ×2 (08:33→22:34)
[2018-12-23] MEDS: FUROSEMIDE 40 MG TAB PO SCH (08:33)
[2018-12-23] MEDS: ASPIRIN 81 MG PO SCH (08:33)
[2018-12-23] MEDS: GABAPENTIN 400 MG CAP PO SCH ×4 (08:33→22:35)
[2018-12-23] MEDS: DIGOXIN 250 MCG TAB PO SCH (08:34)
[2018-12-23] MEDS: SODIUM CHLORIDE 0.9% 1,000 ML IV SCH (08:35)
[2018-12-23 08:57] LABS: Glucose,Whole Blood 233 mg/dL (75-99)
[2018-12-23] MEDS ORDERED: LEVOFLOXACIN 750 MG TAB PO SCH (09:00)
[2018-12-23 10:58] LABS: Glucose,Whole Blood 126 mg/dL (75-99)
[2018-12-23 12:32] LABS: Glucose,Whole Blood 106 mg/dL (75-99)
--- NOTE | 2018-12-23 14:59 | P.PN ---
Subjective Progress Note Date: 12/23/18 Principal diagnosis: Acute bilateral lower lobe pneumonia, with the possibility of hospital-acquired pneumonia 48-year-old male patient with COPD and chronic hypoxic respiratory failure coming in for worsening shortness of breath and COPD exacerbation lower lobe pneumonia and fever and generalized weakness and some altered mentation. Significantly improved over the past 24 hours. Sputum has been collected for cultures. Meanwhile, the patient is much less bronchospastic and wheezy. He is not having any labored breathing. No altered mentation. No fever or chills. No nausea or vomiting. No other complaints over the past 24 hours. The patient was given a combination of IV Solu Medrol, IV Zosyn and Levaquin and the patient was also diuresed with IV Lasix. The CAT scan of the abdomen was negative for any acute intra-abdominal findings. There was some colonic thickening. The patient does not have any diarrhea or abdominal pain for now. There is some lower lobe pulmonary infiltrates noted bilaterally. On 12/23/2018 patient seen in follow-up on medical surgical floor. he is sitting up on the edge of the bed, in no acute distress, he is currently on 4 L of oxygen with a pulse ox of 92%, this is his home dose oxygen. Patient states his breathing easier, less congestion less wheezy, lung sounds reveal some scattered rhonchi, but overall less congested. No fever or chills, hemodynamically stable. No reports of chest pain. Antibiotic coverage in the f orm of Levaquin, and his sputum cultures are showing ESBL with CLL pneumonia, and patient will be started on Invanz 1 g daily. Objective - Vital Signs Vital signs: Vital Signs Temp 97.7 F 12/23/18 11:36 Pulse 66 12/23/18 11:40 Resp 20 12/23/18 11:36 BP 129/53 12/23/18 11:36 Pulse Ox 92 L 12/23/18 11:36 Intake & Output 12/22/18 12/23/18 12/23/18 18:59 06:59 18:59 Intake Total 160.483 358.717 28.467 Output Total 500 300 Balance -339.517 358.717 -271.533 Intake: Intake, IV Titration 160.483 63.717 28.467 Amount Insulin Regular 100 unit 60.483 63.717 28.467 In Sodium Chloride 0.9% 100 ml @ Titrate IV .Q0M [facility] Rx#:[id number] Piperacillin-Tazobactam 3 100 .375 gm In Sodium Chloride 0.9% 100 ml @ 25 mls/hr IVPB Q8HR [facility] Rx# :[id number] Oral 295 Output: Urine 500 300 Other: Voiding Method Urinal # Voids 2 1 # Bowel Movements 2 2 1 - Exam GENERAL EXAM: Alert, pleasant, 68-year-old male patient, on 4 L high flow nasal cannula with a pulse ox of 95%, comfortable in no apparent distress. HEAD: Normocephalic/atraumatic. EYES: Normal reaction of pupils, equal size. Conjunctiva pink, sclera white. NOSE: Clear with pink turbinates. THROAT: No erythema or exudates. NECK: No masses, no JVD, no thyroid enlargement, no adenopathy. CHEST: No chest wall deformity. Symmetrical expansion. LUNGS: Diminished breath sounds, with the expiratory wheezes and rhonchi at the bases, more so on the left CVS: Regular rate and rhythm, normal S1 and S2, no gallops, no murmurs, no rubs ABDOMEN: Soft, nontender. No hepatosplenomegaly, normal bowel sounds, no guarding or rigidity. EXTREMITIES: No clubbing, no edema, no cyanosis, 2+ pulses and upper and lower extremities. MUSCULOSKELETAL: Muscle strength and tone normal. SPINE: No scoliosis or deformity SKIN: No rashes CENTRAL NERVOUS SYSTEM: No focal deficits, tone is normal in all 4 extremities. PSYCHIATRIC: Alert and oriented -3. Appropriate affect. Intact judgment and insight. - Labs CBC & Chem 7: 12/20/18 01:10 12/20/18 01:10 Labs: Abnormal Lab Results - Last 24 Hours (Table) 12/20/18 12/22/18 12/22/18 Range/Units 01:10 14:56 17:03 POC Glucose (mg/dL) 322 H 295 H (75-99) mg/dL Hemoglobin A1c 6.7 H (4.0-6.0) % 12/22/18 12/22/18 12/22/18 Range/Units 18:55 20:53 23:11 POC Glucose (mg/dL) 279 H 202 H 173 H (75-99) mg/dL Hemoglobin A1c (4.0-6.0) % 12/23/18 12/23/18 12/23/18 Range/Units 00:59 03:22 04:59 POC Glucose (mg/dL) 195 H 154 H 149 H (75-99) mg/dL Hemoglobin A1c (4.0-6.0) % 12/23/18 12/23/18 12/23/18 Range/Units 06:50 08:55 10:55 POC Glucose (mg/dL) 173 H 233 H 126 H (75-99) mg/dL Hemoglobin A1c (4.0-6.0) % 12/23/18 Range/Units 12:30 POC Glucose (mg/dL) 106 H (75-99) mg/dL Hemoglobin A1c (4.0-6.0) % Microbiology - Last 24 Hours (Table) 12/21/18 09:27 Gram Stain - Final Sputum Sputum Culture - Final Corynebacterium striatum Klebsiella pneumoniae 12/20/18 03:04 Blood Culture - Preliminary Blood No Growth after 72 hours Assessment and Plan Plan: 1 acute bilateral lower lobe pneumonia, consider hospital-acquired pneumonia, sputum culture positive for ESBL Klebsiella pneumonia. Clinically patient is improving, we'll switch antibiotic coverage from Levaquin and Zosyn to Invanz 2 acute on chronic hypoxic respiratory failure, improved him a currently on 4l of oxygen nasal cannula 3 COPD CVA with an FEV1 of 1.59 L which is 40% predicted 4 chronic hypoxic respiratory failure secondary to above 5 chronic atrial fibrillation rate controlled on Eliquis 6 coronary artery disease 7 history of CVA/TIA 8 history of a small 1 cm solitary pulmonary nodule in the left upper lobe w ithout any significant activity on recent PET scan. 9 hypertension 10 hyperlipidemia 13 osteoarthritis 14 BPH 15 irritable bowel syndrome 16 20-tdsh-fhor smoking history quit in May 2018 17 acid reflux Plan: Stop Levaquin and Zosyn, we'll start patient on IV Invanz 1 g daily, consult infectious disease service, continue current dose of IV steroids, nebulized bronchodilators, sputum cultures were positive for ESBL Klebsiella pneumonia. Clinically patient is improving, breathing easier, no fever or chills. Will await further input of infectious disease service. I performed a history & physical examination of the patient and discussed their management with my nurse practitioner, Aicha Mosquera. I reviewed the nurse practitioner's note and agree with the documented findings and plan of care. Lung sounds are positive for diffuse wheezes throughout the lung mcdaniel. The findings and the impression was discussed with the patient. I attest to the documentation by the nurse practitioner. Time with Patient: Less than 30
[2018-12-23 15:11] LABS: Glucose,Whole Blood 203 mg/dL (75-99)
[2018-12-23] MEDS: ERTAPENEM 1 GM in SODIUM CHLORIDE 0.9% 50 ML IVPB SCH (16:53)
[2018-12-23] MEDS: metFORMIN 500 MG TAB PO SCH (17:01)
[2018-12-23 17:11] LABS: Glucose,Whole Blood 159 mg/dL (75-99)
[2018-12-23 19:11] LABS: Glucose,Whole Blood 186 mg/dL (75-99)
[2018-12-23 21:08] LABS: Glucose,Whole Blood 163 mg/dL (75-99)
--- NOTE | 2018-12-23 22:00 | P.CONS ---
History of Present Illness - Reason for Consult Consult date: 12/23/18 - Chief Complaint Shortness of breath - History of Present Illness 68-year-old male that has a known history of COPD with chronic hypoxic respiratory failure underlying coronary artery disease with proximal atrial fibrillation and obesity. In the recent past he was hospitalized with re spiratory failure and pneumonia. He was discharged home about a week ago however the outpatient setting he started to fail. He increasing shortness of breath and cough increasing weakness and altered mental status. Also related he develop a fever because he was brought back in the hospital. Evaluation for evidence of ongoing pneumonia that had worsened because he was admitted. He did require BiPAP at admission which quickly was downgraded status nasal cannula oxygen. The patient otherwise relates that he started to feel better since coming in the hospital. He has received antibiotic therapy and Lasix and this is allowed this to be improvement of his status. He is denying further fever or chill at this point in time. Fortunately his shortness of breath is improving with the treatments. Review of Systems 68-year-old male presented with severe shortness of breath now feeling slightly better HEENT:Denies headache or acute visual change. Denies sinus or mouth discomforts. Denies neck stiffness or pain. Denies significant oral cavity pain. Denies difficulty on swallowing. Lungs: As per HPI severe shortness of breath cough sputum production admission without hemoptysis now improving Cardiovascular: Denies chest pain at this time shortness of breath continues dyspnea on exertion continues does not have orthopnea or syncope Gastrointestinal:Denies nausea, vomiting, diarrhea, constipation, hematemesis, melena, hematochezia. No no significant change of bowel habit noticed. Musculoskeletal: denies significant myalgias or arthralgias. No new joint swelling. Denies new back pain. Skin: Denies new rash or lesions. No new ulcers or wounds are related.. Neuro: Denies headache or visual change. Denies any new onset weakness or difficulty with ambulation. Denies falls or seizures. Psychiatric:Denies anxiety or depression. Endocrine: Significant fatigue did have weight gain now more stable Past Medical History Past Medical History: Coronary Artery Disease (CAD), Chest Pain / Angina, COPD, CVA/TIA, Eye Disorder, GERD/Reflux, Hyperlipidemia, Hypertension, Osteoarthritis (OA), Prostate Disorder Additional Past Medical History / Comment(s): BPH, 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 History of Any Multi-Drug Resistant Organisms: None Reported Past Surgical History: Adenoidectomy, Back Surgery, Heart Catheterization, Hernia Repair, Joint Replacement, Orthopedic Surgery, Tonsillectomy Additional Past Surgical History / Comment(s): L knee replacement, back surgery x3-failed fusion and 2 rods in lower back, L/R cataract surgery, bilat. rib removal (cervical), carpal tunnel R wrist, colonoscopy, L elbow surgery, abdominal hernia repair, 3 R inguinal hernia repairs, L inguinal hernia repair, rectal cystectomy.pain pump(ms) implanted removed 11/06/2018 Past Anesthesia/Blood Transfusion Reactions: Previous Problems w/ Anesthesia Additional Past Anesthesia/Blood Transfusion Reaction / Comm: With first surgery became belligerent when waking up. Past Psychological History: No Psychological Hx Reported Additional Psychological History / Comment(s): Pt resides with his spouse. He uses a cane to ambulate. has nebulizer He drives. 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 Is no longer smoking. No animals in the home Smoking Status: Former smoker Past Alcohol Use History: None Reported, Occasional Additional Past Alcohol Use History / Comment(s): No smoking since May 2018 Past Drug Use History: None Reported - Past Family History Mother Family Medical History: No Reported History Additional Family Medical History / Comment(s): Mother was healthy and lived to be 88 or 89yrs old. Father Family Medical History: Cancer Additional Family Medical History / Comment(s): Father of lung cancer in his early 70's. Medications and Allergies Home Medications and Allergies Comment(s): Current Medications Acetaminophen (Tylenol Tab) 650 mg PO Q6HR PRN PRN Reason: Mild Pain or Fever > 100.5 Hydrocodone Bitart/Acetaminophen ([place] 10) 1 each PO Q6H PRN PRN Reason: Pain Last Admin: 12/23/18 16:53 Dose: 1 each Documented by: Albuterol/Ipratropium (Duoneb 0.5 Mg-3 Mg/3 Ml Soln) 3 ml INHALATION RT-QID PRIYANKA Last Admin: 12/23/18 19:46 Dose: 3 ml Documented by: Albuterol/Ipratropium (Duoneb 0.5 Mg-3 Mg/3 Ml Soln) 3 ml INHALATION RT-QID PRN PRN Reason: Shortness Of Breath Or Wheezing Last Admin: 12/23/18 03:20 Dose: 3 ml Documented by: Apixaban (Eliquis) 5 mg PO BID [facility] Last Admin: 12/23/18 08:33 Dose: 5 mg Documented by: Aspirin (Aspirin) 81 mg PO DAILY [facility] Last Admin: 12/23/18 08:33 Dose: 81 mg Documented by: Atorvastatin Calcium (Lipitor) 80 mg PO HS [facility] Last Admin: 12/22/18 20:59 Dose: 80 mg Documented by: Digoxin (Lanoxin) 250 mcg PO DAILY [facility] Last Admin: 12/23/18 08:34 Dose: 250 mcg Documented by: Diltiazem HCl (Cardizem Oral) 90 mg PO Q6H [facility] Last Admin: 12/23/18 17:02 Dose: 90 mg Documented by: Furosemide (Lasix) 40 mg PO DAILY [facility] Last Admin: 12/23/18 08:33 Dose: 40 mg Documented by: Gabapentin (Neurontin) 400 mg PO QID [facility] Last Admin: 12/23/18 17:02 Dose: 400 mg Documented by: Guaifenesin (Mucinex) 1,200 mg PO Q12HR [facility] Last Admin: 12/23/18 08:31 Dose: 1,200 mg Documented by: Sodium Chloride (Saline 0.9%) 1,000 mls @ 20 mls/hr IV .Q24H [facility] Last Admin: 12/23/18 08:35 Dose: 20 mls/hr Documented by: Insulin Human Regular 100 unit (/ Sodium Chloride) 101 mls @ 0 mls/hr IV .Q0M [facility]; Protocol Last Titration: 12/23/18 17:10 Dose: Infused Documented by: Ertapenem 1 gm/ Sodium (Chloride) 50 mls @ 100 mls/hr IVPB DAILY [facility]; Protocol Last Admin: 12/23/18 16:53 Dose: 100 mls/hr Documented by: Insulin Aspart (Novolog) 13 unit 0.13 unit/kg (13 unit) SQ AC-TID [facility] Last Admin: 12/23/18 17:57 Dose: 13 unit Documented by: Metformin HCl (Glucophage) 1,000 mg PO BID-W/MEALS [facility] Last Admin: 12/23/18 17:01 Dose: 1,000 mg Documented by: Methylprednisolone Sodium Succinate (Solu-Medrol) 60 mg IV Q6HR [facility] Last Admin: 12/23/18 18:02 Dose: 60 mg Documented by: Metoprolol Tartrate (Lopressor) 100 mg PO Q6H [facility] Last Admin: 12/23/18 17:00 Dose: 100 mg Documented by: Miscellaneous Information (Pneumonia Protocol Utilized) 1 each PO ONCE PRN PRN Reason: Per Protocol Naloxone HCl (Narcan) 0.2 mg IV Q2M PRN PRN Reason: Opioid Reversal Pantoprazole Sodium (Protonix) 40 mg PO AC-BRKFST [facility] Last Admin: 12/23/18 08:32 Dose: 40 mg Documented by: Sodium Bicarbonate (Sodium Bicarbonate Tab) 325 mg PO TID [facility] Last Admin: 12/23/18 17:00 Dose: 325 mg Documented by: Tamsulosin HCl (Flomax) 0.4 mg PO HS [facility] Last Admin: 12/22/18 20:59 Dose: 0.4 mg Documented by: Home Medications Medication Instructions Recorded Confirmed Type Multivitamins, Thera [Multivitamin 1 tab PO DAILY 05/19/18 12/20/18 History (formulary)] Aspirin 81 mg PO DAILY 11/21/18 12/20/18 History Atorvastatin [Lipitor] 80 mg PO HS 11/21/18 12/20/18 History Esomeprazole Magnesium [NexIUM] 40 mg PO DAILY 11/21/18 12/20/18 History Ipratropium-Albuterol Nebulize 3 ml INHALATION RT-QID PRN 11/21/18 12/20/18 History [Duoneb 0.5 mg-3 mg/3 ml Soln] Gabapentin [Neurontin] 400 mg PO QID #120 cap 11/27/18 12/20/18 Rx HYDROcodone/APAP 10-325MG [[place] 1 tab PO Q6H PRN #30 tab 11/27/18 12/20/18 Rx 10-325] Cyclobenzaprine [Flexeril] 10 mg PO Q8H PRN 11/30/18 12/20/18 History Apixaban [Eliquis] 5 mg PO BID #20 tab 12/03/18 12/20/18 Rx Budesonide-Formot 160-4.5 Mcg 2 puff INHALATION RT-BID #1 inhaler 12/03/18 12/20/18 Rx [Symbicort 160-4.5 Mcg Inhaler] Digoxin 250 mcg PO DAILY #10 tablet 12/03/18 12/20/18 Rx Diltiazem HCl 90 mg PO Q6H #40 tablet 12/03/18 12/20/18 Rx Metoprolol Tartrate [Lopressor] 100 mg PO Q6H #40 tablet 12/03/18 12/20/18 Rx Potassium Chloride ER [K-Dur 20] 20 meq PO BID #20 tab.er.prt 12/03/18 12/20/18 Rx Tamsulosin HCl [Flomax] 0.4 mg PO HS #20 capsule 12/03/18 12/20/18 Rx Tiotropium 18 Mcg/Puff [Spiriva] 1 puff INHALATION RT-DAILY 12/06/18 12/20/18 History Furosemide [Lasix] 40 mg PO DAILY #30 tab 12/15/18 12/20/18 Rx Sodium Bicarbonate Tab 325 mg PO TID #90 tab 12/15/18 12/20/18 Rx predniSONE See Taper PO DIRECTED #48 tab 12/15/18 12/20/18 Rx Ertapenem [INVanz] 1 gm IVPB Q24H #13 bag 12/23/18 Rx Allergies Allergy/AdvReac Type Severity Reaction Status Date / Time montelukast sodium AdvReac Itching Verified 12/20/18 07:11 [From [facility]] Physical Exam Vitals: Vital Signs Temp Pulse Pulse Resp BP Pulse Ox 12/23/18 20:46 98.0 F 73 20 131/54 93 L 12/23/18 19:58 77 16 12/23/18 19:46 74 16 12/23/18 16:23 78 16 12/23/18 16:11 76 16 94 L 12/23/18 11:40 66 12/23/18 11:36 97.7 F 71 20 129/53 92 L 12/23/18 11:22 66 12/23/18 07:31 70 12/23/18 07:17 68 12/23/18 05:00 97.9 F 65 20 138/60 92 L 12/23/18 03:34 76 12/23/18 03:20 72 12/22/18 23:24 72 12/22/18 23:13 73 93 L Intake and Output 05/22/19 05/22/19 05/22/19 06:59 14:59 22:59 Intake Total 331.383 28.467 8.816 Output Total 300 200 Balance 331.383 -271.533 -191.184 Intake: Intake, IV Titration 36.383 28.467 8.816 Amount Insulin Regular 100 unit 36.383 28.467 8.816 In Sodium Chloride 0.9% 100 ml @ Titrate IV .Q0M [facility] Rx#:[id number] Oral 295 Output: Urine 300 200 Other: Voiding Method Urinal Urinal # Voids 2 1 # Bowel Movements 2 1 68-year-old male who is still somewhat short of breath but relates he feels better HEENT: Anicteric conjunctiva are pink and moist nasal mucosa grossly intact without significant lesions, there is no thrush. Neck: The neck is supple without significant lymphadenopathy or thyromegaly. Lungs: There is symmetrical air entry, there are still significant crackles in the left base with localized egophony to the left base, right bases with crac kles. Some expiratory wheezes are still heard. There was no dullness. Heart: Irregular positive S4. There is no significant murmur click or rub, PMI was nondisplaced. Abdomen: Obese, Positive bowel sounds soft and nontender without palpable masses or organomegaly. There was no guarding or rebound. Extremities: The upper extremities have excellent pulses they are symmetric, no significant petechiae or telangiectasia. No splinter hemorrhages were noted. Lower extremities evidence of chronic venous stasis chronic edema no open ulcers Neuro: Awake alert oriented to person place and time. There are no acute new gross focal sensory motor deficits. Results CBC & Chem 7: 12/20/18 01:10 12/20/18 01:10 Labs: Abnormal Lab Results - Last 24 Hours (Table) 12/22/18 12/23/18 12/23/18 Range/Units 23:11 00:59 03:22 POC Glucose (mg/dL) 173 H 195 H 154 H (75-99) mg/dL 12/23/18 12/23/18 12/23/18 Range/Units 04:59 06:50 08:55 POC Glucose (mg/dL) 149 H 173 H 233 H (75-99) mg/dL 12/23/18 12/23/18 12/23/18 Range/Units 10:55 12:30 15:08 POC Glucose (mg/dL) 126 H 106 H 203 H (75-99) mg/dL 12/23/18 12/23/18 12/23/18 Range/Units 17:09 19:10 21:07 POC Glucose (mg/dL) 159 H 186 H 163 H (75-99) mg/dL Microbiology - Last 24 Hours (Table) 12/21/18 09:27 Gram Stain - Final Sputum Sputum Culture - Final Corynebacterium striatum Klebsiella pneumoniae 12/20/18 03:04 Blood Culture - Preliminary Blood No Growth after 72 hours Laboratory Results WBC 9.9 k/uL (3.8-10.6) 12/20/18 01:10 RBC 3.24 m/uL (4.30-5.90) L 12/20/18 01:10 Hgb 9.9 gm/dL (13.0-17.5) L 12/20/18 01:10 Hct 31.0 % (39.0-53.0) L 12/20/18 01:10 MCV 95.8 fL (80.0-100.0) 12/20/18 01:10 MCH 30.5 pg (25.0-35.0) 12/20/18 01:10 MCHC 31.8 g/dL (31.0-37.0) 12/20/18 01:10 RDW 15.4 % (11.5-15.5) 12/20/18 01:10 Plt Count 220 k/uL (150-450) 12/20/18 01:10 Neutrophils % 82 % 12/20/18 01:10 Lymphocytes % 13 % 12/20/18 01:10 Monocytes % 3 % 12/20/18 01:10 Eosinophils % 1 % 12/20/18 01:10 Basophils % 0 % 12/20/18 01:10 Neutrophils # 8.2 k/uL (1.3-7.7) H 12/20/18 01:10 Lymphocytes # 1.2 k/uL (1.0-4.8) 12/20/18 01:10 Monocytes # 0.3 k/uL (0-1.0) 12/20/18 01:10 Eosinophils # 0.1 k/uL (0-0.7) 12/20/18 01:10 Basophils # 0.0 k/uL (0-0.2) 12/20/18 01:10 Hypochromasia Slight 12/20/18 01:10 PT 10.5 sec (9.0-12.0) 12/20/18 01:10 INR 1.0 (<1.2) 12/20/18 01:10 APTT 23.4 sec (22.0-30.0) 12/20/18 01:10 Sample Site rbra 12/21/18 15:58 ABG pH 7.50 (7.35-7.45) H 12/21/18 15:58 ABG pCO2 38 mmHg (35-45) 12/21/18 15:58 ABG pO2 63 mmHg (83-108) L 12/21/18 15:58 ABG HCO3 30 mmol/L (21-25) H 12/21/18 15:58 ABG Total CO2 31 mmol/L (19-24) H 12/21/18 15:58 ABG O2 Saturation 93.7 % (94-97) L 12/21/18 15:58 ABG Base Excess 6.5 mmol/L 12/21/18 15:58 Nico Test Yes 12/21/18 15:58 FiO2 36 % 12/21/18 15:58 Sodium 137 mmol/L (137-145) 12/20/18 01:10 Potassium 4.8 mmol/L (3.5-5.1) 12/20/18 01:10 Chloride 100 mmol/L (98-107) 12/20/18 01:10 Carbon Dioxide 32 mmol/L (22-30) H 12/20/18 01:10 Anion Gap 5 mmol/L 12/20/18 01:10 BUN 18 mg/dL (9-20) 12/20/18 01:10 Creatinine 1.12 mg/dL (0.66-1.25) 12/20/18 01:10 Est GFR (CKD-EPI)AfAm 77 (>60 ml/min/1.73 sqM) 12/20/18 01:10 Est GFR (CKD-EPI)NonAf 66 (>60 ml/min/1.73 sqM) 12/20/18 01:10 Glucose 95 mg/dL (74-99) 12/20/18 01:10 POC Glucose (mg/dL) 163 mg/dL (75-99) H 12/23/18 21:07 POC Glu Glass Carrier ID Wilda Laws 12/23/18 21:[address] Glu mg/dL 146 12/20/18 01:10 Hemoglobin A1c 6.7 % (4.0-6.0) H 12/20/18 01:10 Plasma Lactic Acid Isaac 1.1 mmol/L (0.7-2.0) 12/20/18 03:04 Calcium 8.3 mg/dL (8.4-10.2) L 12/20/18 01:10 Total Bilirubin 0.6 mg/dL (0.2-1.3) 12/20/18 01:10 AST 20 U/L (17-59) 12/20/18 01:10 ALT 24 U/L (21-72) 12/20/18 01:10 Alkaline Phosphatase 84 U/L (38-126) 12/20/18 01:10 Troponin I 0.086 ng/mL (0.000-0.034) H* 12/20/18 17:57 NT-Pro-B Natriuret Pep 1660 pg/mL 12/20/18 01:10 Total Protein 4.8 g/dL (6.3-8.2) L 12/20/18 01:10 Albumin 2.5 g/dL (3.5-5.0) L 12/20/18 01:10 Amylase <30 U/L (30-110) L 12/20/18 01:10 Lipase 33 U/L (23-300) 12/20/18 01:10 Urine Color Yellow 12/20/18 13:49 Urine Appearance Clear (Clear) 12/20/18 13:49 Urine pH 7.0 (5.0-8.0) 12/20/18 13:49 Ur Specific [place] 1.043 (1.001-1.035) H 12/20/18 13:49 Urine Protein 1+ (Negative) H 12/20/18 13:49 Urine Glucose (UA) Negative (Negative) 12/20/18 13:49 Urine Ketones Negative (Negative) 12/20/18 13:49 Urine Blood Negative (Negative) 12/20/18 13:49 Urine Nitrite Negative (Negative) 12/20/18 13:49 Urine Bilirubin Negative (Negative) 12/20/18 13:49 Urine Urobilinogen <2.0 mg/dL (<2.0) 12/20/18 13:49 Ur Leukocyte Esterase Negative (Negative) 12/20/18 13:49 Urine RBC 2 /hpf (0-5) 12/20/18 13:49 Urine WBC 1 /hpf (0-5) 12/20/18 13:49 Influenza Type A RNA Not Detected (Not Detectd) 12/20/18 02:50 Influenza Type B (PCR) Not Detected (Not Detectd) 12/20/18 02:50 Microbiology 12/21/18 09:27 Sputum Gram Stain - Final 12/21/18 09:27 Sputum Sputum Culture - Final Corynebacterium striatum Klebsiella pneumoniae 12/20/18 03:04 Blood Blood Culture - Preliminary No Growth after 72 hours 12/20/18 13:49 Urine,Clean Catch Urine Culture - Final Assessment and Plan (1) Infection with ESBL Klebsiella oxytoca Narrative/Plan: 68-year-old male who has a history of COPD with chronic hypoxic respiratory failure recently hospitalized with pneumonia. Shortly after discharge to home he again had worsening of his status and presented now 3 days ago with significant pneumonia. Exam reveals evidence of a left lower lobe infiltrate CT shows evidence of bibasilar infiltrate. Fortunately the patient is having some improvement tonight. He does have evidence as per laboratory of the Klebsiella ESBL in his sputum. Antibiotic therapy is altered to ertapenem. Requesting a midline catheter be placed in home intravenous antibiotic therapy with ertapenem if this can be arranged. If not will need to come to the office. Continue the pulmonary treatment as per pulmonary critical care. Fortunately is having some improvement. He this point in time does not have evidence of significant sepsis. Current Visit: Yes Status: Acute Code(s): A49.8 - OTHER BACTERIAL INFECTIONS OF UNSPECIFIED SITE; Z16.12 - EXTENDED SPECTRUM BETA LACTAMASE (ESBL) RESISTANCE SNOMED Code(s): 448351981 (2) Acute and chronic respiratory failure with hypoxia Current Visit: No Status: Acute Code(s): J96.21 - ACUTE AND CHRONIC RESPIRATORY FAILURE WITH HYPOXIA SNOMED Code(s): 85542856
[2018-12-23] MEDS: INSULIN REGULAR 100 UNIT in SODIUM CHLORIDE 0.9% 100 ML IV SCH (22:27)
[2018-12-23] MEDS: ATORVASTATIN 80 MG TAB PO SCH (22:34)
[2018-12-23] MEDS: TAMSULOSIN 0.4 MG CAP.ER.24H PO SCH (22:35)
[2018-12-24 00:44] LABS: Glucose,Whole Blood 214 mg/dL (75-99)
[2018-12-24 02:51] LABS: Glucose,Whole Blood 168 mg/dL (75-99)
[2018-12-24] MEDS: IPRATROPIUM-ALBUTEROL 3 ML NEB INHALATION PRN (03:18)
[2018-12-24 04:59] VITALS: BP 110/41; TEMP 98.1
[2018-12-24 05:25] LABS: Glucose,Whole Blood 171 mg/dL (75-99)
[2018-12-24] MEDS: HYDROcodone/APAP 10-325MG 1 EACH TAB PO PRN ×2 (06:26→12:55)
[2018-12-24] MEDS: DILTIAZEM ORAL 30 MG TAB PO SCH ×2 (06:26→12:56)
[2018-12-24] MEDS: METOPROLOL TARTRATE 50 MG TAB PO SCH ×2 (06:26→12:56)
[2018-12-24] MEDS: methylPREDNISolone SOD SUCCI 125 MG/2 ML VIAL IV SCH ×2 (06:26→12:56)
[2018-12-24] MEDS: SODIUM CHLORIDE 0.9% 1,000 ML IV SCH (06:31)
[2018-12-24 06:58] LABS: Glucose,Whole Blood 132 mg/dL (75-99)
[2018-12-24] MEDS: IPRATROPIUM-ALBUTEROL 3 ML NEB INHALATION SCH ×3 (08:19→16:55)
[2018-12-24] MEDS: SODIUM BICARBONATE TAB 650 MG TAB PO SCH (09:21)
[2018-12-24] MEDS: guaiFENesin 600 MG TABLET.ER PO SCH (09:22)
[2018-12-24] MEDS: APIXABAN 5 MG TAB PO SCH (09:22)
[2018-12-24] MEDS: ASPIRIN 81 MG PO SCH (09:22)
[2018-12-24] MEDS: GABAPENTIN 400 MG CAP PO SCH ×2 (09:22→12:55)
[2018-12-24] MEDS: PANTOPRAZOLE 40 MG TABLET PO SCH (09:22)
[2018-12-24] MEDS: metFORMIN 500 MG TAB PO SCH (09:22)
[2018-12-24 09:23] LABS: Glucose,Whole Blood 201 mg/dL (75-99)
[2018-12-24] MEDS: FUROSEMIDE 40 MG TAB PO SCH (09:23)
[2018-12-24] MEDS: DIGOXIN 250 MCG TAB PO SCH (09:23)
[2018-12-24] MEDS: INSULIN ASPART (NovoLOG) 100 UNIT/ML VIAL SQ SCH (09:23)
[2018-12-24] MEDS: ERTAPENEM 1 GM in SODIUM CHLORIDE 0.9% 50 ML IVPB SCH (09:29)
[2018-12-24 11:12] LABS: Glucose,Whole Blood 137 mg/dL (75-99)
--- NOTE | 2018-12-24 14:17 | P.DS ---
Providers Date of admission: 12/20/18 06:24 Expected date of discharge: 12/24/18 Attending physician: Benito Norton MD Consults: 12/20/18 16:29 Consult Physician Routine Consulting Provider: Peace Weeks Consult Reason/Comments: Elevated Trops Do you want consulting provider notified?: Yes Consult Physician Stat Consulting Provider: Avery Bravo Consult Reason/Comments: COPD + HCAP Do you want consulting provider notified?: Yes 12/23/18 14:57 Consult Physician Routine Consulting Provider: Lucas Saldana Consult Reason/Comments: ESBL Klebsiella pneumonie in sputum Do you want consulting provider notified?: Yes Primary care physician: David Suazo - Discharge Diagnosis(es) (1) Acute and chronic respiratory failure with hypoxia Current Visit: No Status: Acute (2) Elevated troponin Current Visit: Yes Status: Acute (3) Acute exacerbation of chronic obstructive airways disease Current Visit: No Status: Acute (4) HCAP (healthcare-associated pneumonia) Current Visit: No Status: Acute (5) Atrial fibrillation with RVR Current Visit: No Status: Chronic Hospital Course: The patient is an obese 68-year-old male with a past medical history of COPD known to be oxygen dependent with chronic respiratory failure with a baseline of 4 L via nasal cannula. The patient was admitted with acute on chronic respiratory failure and was placed on BiPAP in the ER after failing his outpatient treatment for pneumonia, repeat chest x-ray showed bilateral airspace disease suggestive of a recurrent pneumonia and he was started on broad spectrum antibiotics after he presented back to the ER with increased cough altered mentation generalized weakness and with high-grade fevers tmax 103. The patient was started empirically on Levaquin and Zosyn, and sputum blood cultures were ordered. The patient was noted to have a mild elevation of his troponin at 0.086 with a NT proBNP of 1660. EKG showed no acute ST abnormalities she just of ischemia, echocardiogram showed a preserved LVEF of 55-60% with mild to moderate MR. The patient has a history of paroxysmal A. fib and was continued on DOAC with ELiquis 5mg PO BID and diltiazem 90 mg PO QID. computed tomography scan of the abdomen and pelvis was negative for any acute insert abdominal pathology but did show some colonic thickening. The patient was started on treatment for acute COPD exacerbation she included IV Solu-Medrol, scheduled and when necessary bronchodilator DuoNeb breathing treatment, and Mucinex. The sputum cultures obtained were positive for Corynebacterium and Klebsiella ESBL and antibiotic therapy was changed to ertapenem. The patient status improved he was weaned back to his baseline O2 requirements of 4 L via nasal cannula, Patient Condition at Discharge: Serious Plan - Discharge Summary Discharge Rx Participant: No New Discharge Prescriptions: New Ertapenem [INVanz] 1 gm IVPB Q24H #13 bag No Action Multivitamins, Thera [Multivitamin (formulary)] 1 tab PO DAILY Aspirin 81 mg PO DAILY Ipratropium-Albuterol Nebulize [Duoneb 0.5 mg-3 mg/3 ml Soln] 3 ml INHALATION RT-QID PRN PRN Reason: Shortness Of Breath Esomeprazole Magnesium [NexIUM] 40 mg PO DAILY Atorvastatin [Lipitor] 80 mg PO HS Gabapentin [Neurontin] 400 mg PO QID #120 cap HYDROcodone/APAP 10-325MG [[place] 10-325] 1 tab PO Q6H PRN #30 tab PRN Reason: Pain Cyclobenzaprine [Flexeril] 10 mg PO Q8H PRN PRN Reason: Muscle Spasm Digoxin 250 mcg PO DAILY #10 tablet Diltiazem HCl 90 mg PO Q6H #40 tablet Apixaban [Eliquis] 5 mg PO BID #20 tab Tamsulosin HCl [Flomax] 0.4 mg PO HS #20 capsule Potassium Chloride ER [K-Dur 20] 20 meq PO BID #20 tab.er.prt Metoprolol Tartrate [Lopressor] 100 mg PO Q6H #40 tablet Budesonide-Formot 160-4.5 Mcg [Symbicort 160-4.5 Mcg Inhaler] 2 puff INHALATION RT-BID #1 inhaler Tiotropium 18 Mcg/Puff [Spiriva] 1 puff INHALATION RT-DAILY Furosemide [Lasix] 40 mg PO DAILY #30 tab predniSONE See Taper PO DIRECTED #48 tab Sodium Bicarbonate Tab 325 mg PO TID #90 tab Discharge Medication List Multivitamins, Thera [Multivitamin (formulary)] 1 tab PO DAILY 05/19/18 [History] Aspirin 81 mg PO DAILY 11/21/18 [History] Atorvastatin [Lipitor] 80 mg PO HS 11/21/18 [History] Esomeprazole Magnesium [NexIUM] 40 mg PO DAILY 11/21/18 [History] Ipratropium-Albuterol Nebulize [Duoneb 0.5 mg-3 mg/3 ml Soln] 3 ml INHALATION RT-QID PRN 11/21/18 [History] Gabapentin [Neurontin] 400 mg PO QID #120 cap 11/27/18 [Rx] HYDROcodone/APAP 10-325MG [[place] 10-325] 1 tab PO Q6H PRN #30 tab 11/27/18 [Rx] Cyclobenzaprine [Flexeril] 10 mg PO Q8H PRN 11/30/18 [History] Apixaban [Eliquis] 5 mg PO BID #20 tab 12/03/18 [Rx] Budesonide-Formot 160-4.5 Mcg [Symbicort 160-4.5 Mcg Inhaler] 2 puff INHALATION RT-BID #1 inhaler 12/03/18 [Rx] Digoxin 250 mcg PO DAILY #10 tablet 12/03/18 [Rx] Diltiazem HCl 90 mg PO Q6H #40 tablet 12/03/18 [Rx] Metoprolol Tartrate [Lopressor] 100 mg PO Q6H #40 tablet 12/03/18 [Rx] Potassium Chloride ER [K-Dur 20] 20 meq PO BID #20 tab.er.prt 12/03/18 [Rx] Tamsulosin HCl [Flomax] 0.4 mg PO HS #20 capsule 12/03/18 [Rx] Tiotropium 18 Mcg/Puff [Spiriva] 1 puff INHALATION RT-DAILY 12/06/18 [History] Furosemide [Lasix] 40 mg PO DAILY #30 tab 12/15/18 [Rx] Sodium Bicarbonate Tab 325 mg PO TID #90 tab 12/15/18 [Rx] predniSONE See Taper PO DIRECTED #48 tab 12/15/18 [Rx] Ertapenem [INVanz] 1 gm IVPB Q24H #13 bag 12/23/18 [Rx] Follow up Appointment(s)/Referral(s): [facility], [NON-STAFF] - 1 Week David Suazo MD [Primary Care Provider] - 1-2 days
[2018-12-24 14:30] LABS: Glucose,Whole Blood 186 mg/dL (75-99)
[2018-12-24 16:57] VITALS: RESP 16
[2018-12-24 17:06] VITALS: PULSE 80
[2018-12-24 17:20] LABS: Glucose,Whole Blood 154 mg/dL (75-99)
--- NOTE | 2018-12-24 17:20 | P.PN ---
Subjective Progress Note Date: 12/24/18 Principal diagnosis: Acute bilateral lower lobe pneumonia, with the possibility of hospital-acquired pneumonia 48-year-old male patient with COPD and chronic hypoxic respiratory failure coming in for worsening shortness of breath and COPD exacerbation lower lobe pneumonia and fever and generalized weakness and some altered mentation. Significantly improved over the past 24 hours. Sputum has been collected for cultures. Meanwhile, the patient is much less bronchospastic and wheezy. He is not having any labored breathing. No altered mentation. No fever or chills. No nausea or vomiting. No other complaints over the past 24 hours. The patient was given a combination of IV Solu Medrol, IV Zosyn and Levaquin and the patient was also diuresed with IV Lasix. The CAT scan of the abdomen was negative for any acute intra-abdominal findings. There was some colonic thickening. The patient does not have any diarrhea or abdominal pain for now. There is some lower lobe pulmonary infiltrates noted bilaterally. On 12/23/2018 patient seen in follow-up on medical surgical floor. he is sitting up on the edge of the bed, in no acute distress, he is currently on 4 L of oxygen with a pulse ox of 92%, this is his home dose oxygen. Patient states his breathing easier, less congestion less wheezy, lung sounds reveal some scattered rhonchi, but overall less congested. No fever or chills, hemodynamically stable. No reports of chest pain. Antibiotic coverage in the f orm of Levaquin, and his sputum cultures are showing ESBL with CLL pneumonia, and patient will be started on Invanz 1 g daily. On 12/24/2018 patient seen in follow-up on medical surgical floor. He was found to have ESBL Klebsiella pneumonia and Corynebacterium striatum, and patient was started on Invanz, seen by infectious disease service, patient will need course of IV Invanz infusions for which he will be placed in the subacute snf facility. He is improving, no fever or chills. He is on 4 L of oxygen, thinning stable oxygenation, no acute events overnight, lung sounds reveal some scattered rhonchi, but no significant wheezing, patient has been getting up to the chair, and tolerating activity well. Objective - Vital Signs Vital signs: Vital Signs Temp 98.1 F 12/24/18 04:57 Pulse 82 12/24/18 16:56 Resp 16 12/24/18 16:56 BP 110/41 12/24/18 04:57 Pulse Ox 91 L 12/24/18 04:57 Intake & Output 12/23/18 12/24/18 12/24/18 18:59 06:59 18:59 Intake Total 37.283 572.35 Output Total 500 6 4 Balance -462.717 566.35 -4 Intake: Intake, IV Titration 37.283 92.35 Amount Insulin Regular 100 unit 37.283 22.35 In Sodium Chloride 0.9% 100 ml @ Titrate IV .Q0M PRIYANKA Rx#:[id number] Sodium Chloride 0.9% 1, 70 000 ml @ 20 mls/hr IV . Q24H PRIYANKA Rx#:[id number] Oral 480 Output: Urine 500 Stool 4 4 Urine/Stool Mix 2 Other: Voiding Method Urinal Urinal Urinal # Voids 1 3 # Bowel Movements 1 1 - Exam GENERAL EXAM: Alert, pleasant, 68-year-old male patient, on 4 L high flow nasal cannula with a pulse ox of 95%, comfortable in no apparent distress. HEAD: Normocephalic/atraumatic. EYES: Normal reaction of pupils, equal size. Conjunctiva pink, sclera white. NOSE: Clear with pink turbinates. THROAT: No erythema or exudates. NECK: No masses, no JVD, no thyroid enlargement, no adenopathy. CHEST: No chest wall deformity. Symmetrical expansion. LUNGS: Diminished breath sounds, with the expiratory wheezes and rhonchi at the bases, more so on the left CVS: Regular rate and rhythm, normal S1 and S2, no gallops, no murmurs, no rubs ABDOMEN: Soft, nontender. No hepatosplenomegaly, normal bowel sounds, no guarding or rigidity. EXTREMITIES: No clubbing, no edema, no cyanosis, 2+ pulses and upper and lower extremities. MUSCULOSKELETAL: Muscle strength and tone normal. SPINE: No scoliosis or deformity SKIN: No rashes CENTRAL NERVOUS SYSTEM: No focal deficits, tone is normal in all 4 extremities. PSYCHIATRIC: Alert and oriented -3. Appropriate affect. Intact judgment and insight. - Labs CBC & Chem 7: 12/20/18 01:10 12/20/18 01:10 Labs: Abnormal Lab Results - Last 24 Hours (Table) 12/23/18 12/23/1819 Range/Units 17:09 19:10 21:07 POC Glucose (mg/dL) 159 H 186 H 163 H (75-99) mg/dL 12/24/18 12/24/18 12/24/18 Range/Units 00:43 02:50 05:23 POC Glucose (mg/dL) 214 H 168 H 171 H (75-99) mg/dL 12/24/18 12/24/18 12/24/18 Range/Units 06:56 09:19 11:10 POC Glucose (mg/dL) 132 H 201 H 137 H (75-99) mg/dL 12/24/18 Range/Units 14:28 POC Glucose (mg/dL) 186 H (75-99) mg/dL Microbiology - Last 24 Hours (Table) 12/20/18 03:04 Blood Culture - Preliminary Blood No Growth after 96 hours 12/21/18 09:27 Gram Stain - Final Sputum Sputum Culture - Final Corynebacterium striatum Klebsiella pneumoniae Assessment and Plan Plan: 1 acute bilateral lower lobe pneumonia, consider hospital-acquired pneumonia, sputum culture positive for ESBL Klebsiella pneumonia. Clinically patient is improving, we'll switch antibiotic coverage from Levaquin and Zosyn to Invanz 2 acute on chronic hypoxic respiratory failure, improved him a currently on 4l of oxygen nasal cannula 3 COPD CVA with an FEV1 of 1.59 L which is 40% predicted 4 chronic hypoxic respiratory failure secondary to above 5 chronic atrial fibrillation rate controlled on Eliquis 6 coronary artery disease 7 history of CVA/TIA 8 history of a small 1 cm solitary pulmonary nodule in the left upper lobe without any significant activity on recent PET scan. 9 hypertension 10 hyperlipidemia 13 osteoarthritis 14 BPH 15 irritable bowel syndrome 16 [id number] smoking history quit in May 2018 17 acid reflux Plan: Patient is stable for discharge to snf facility today, he is going to [facility] for IV infusions of Invanz for ESBL Klebsiella pneumonia. Patient can be discharged on the prednisone taper, and his maintenance inhalers and nebulized treatments, he will need outpatient follow-up with Dr. Bravo in the office in 7-10 days. I performed a history & physical examination of the patient and discussed their management with my nurse practitioner, Aicha Mosquera. I reviewed the nurse practitioner's note and agree with the documented findings and plan of care. Lung sounds are positive for diffuse wheezes throughout the lung mcdaniel. The findings and the impression was discussed with the patient. I attest to the documentation by the nurse practitioner. Time with Patient: Less than 30
[2018-12-24] MEDS ORDERED: INSULIN ASPART (NovoLOG) 100 UNIT/ML VIAL SQ SCH (17:30)
== END 2018-12-24 17:30 | DRG 190 ==
LOC: EC 00:58 → 4SSUR 06:24 → 2SICU 07:41 → 3SCARD 07:51 → 3NMEDONC 22:10
PROVIDERS: ADMIT Internal Medicine; ATTEND Internal Medicine
PROC: 5A09357 Assistance with Respiratory Ventilation, Less than 24 Consecutive Hours, Continuous Positive Airway Pressure (ICD-10-PCS; principal; 2018-12-20)
DX: J44.1 Chronic obstructive pulmonary disease with (acute) exacerbation (principal); J15.0 Pneumonia due to Klebsiella pneumoniae; J96.21 Acute and chronic respiratory failure with hypoxia; I24.8 Other forms of acute ischemic heart disease; I50.32 Chronic diastolic (congestive) heart failure; J44.0 Chronic obstructive pulmonary disease with (acute) lower respiratory infection; I11.0 Hypertensive heart disease with heart failure; I48.0 Paroxysmal atrial fibrillation; D64.9 Anemia, unspecified; I34.0 Nonrheumatic mitral (valve) insufficiency; E66.9 Obesity, unspecified; E78.5 Hyperlipidemia, unspecified; I25.10 Atherosclerotic heart disease of native coronary artery without angina pectoris; K21.9 Gastro-esophageal reflux disease without esophagitis; K58.9 Irritable bowel syndrome, unspecified; N40.0 Benign prostatic hyperplasia without lower urinary tract symptoms; K44.9 Diaphragmatic hernia without obstruction or gangrene; M19.90 Unspecified osteoarthritis, unspecified site; R91.1 Solitary pulmonary nodule; H93.19 Tinnitus, unspecified ear; Z68.34 Body mass index [BMI] 34.0-34.9, adult; Z79.01 Long term (current) use of anticoagulants; Z79.51 Long term (current) use of inhaled steroids; Z79.82 Long term (current) use of aspirin; Z79.899 Other long term (current) drug therapy; Z86.73 Personal history of transient ischemic attack (TIA), and cerebral infarction without residual deficits; Z88.8 Allergy status to other drugs, medicaments and biological substances; Z87.891 Personal history of nicotine dependence; Z99.81 Dependence on supplemental oxygen; Z87.01 Personal history of pneumonia (recurrent); Z96.652 Presence of left artificial knee joint; Z98.1 Arthrodesis status; Z98.42 Cataract extraction status, left eye; Z98.41 Cataract extraction status, right eye; Z96.1 Presence of intraocular lens; Z16.12 Extended spectrum beta lactamase (ESBL) resistance; Z80.1 Family history of malignant neoplasm of trachea, bronchus and lung; Y95 Nosocomial condition
CPT/HCPCS: 36410; 36415; 36600; 71046; 74177; 76937; 80053; 81001; 82150; 82805; 83036; 83605; 83690; 83880; 84484; 85025; 85610; 85730; 87040; 87070; 87077; 87086; 87186; 87205; 87502; 93005; 93308; 94640; 94660; 94760; 96365; 96366; 96367; 99285

== ENCOUNTER 2019-01-11 03:37 | Inpatient (IN) | payer MEDICARE, BC ==
[2019-01-11] MEDS ORDERED: ACETAMINOPHEN TAB 325 MG TAB PO STA (03:51)
--- NOTE | 2019-01-11 04:09 | ED ---
General Adult HPI - General Chief complaint: Fall Stated complaint: Altered Mental Status Time Seen by Provider: 01/11/19 03:42 Source: patient, family, EMS Mode of arrival: EMS Limitations: altered mental status - History of Present Illness Initial comments: He is a 68-year-old gentleman with extensive past medical history most significant for severe COPD and recurrent pneumonia. Patient presents the emergency department today via EMS for evaluation after a fall. She had apparently gotten up during the night to use the restroom he doesn't have a fall onto his left knee. He was distended to be assisted back to bed is noted the patient was very weak complaining of pain in his left knee he seemed very warm to hot patch and there is concerned that he may be significant that decision is made to send the patient back to the emergency department for reevaluation possible sepsis. Upon arrival the patient is actively hallucinating, non-cooperative with exam and offers no meaningful history. He answers yes and no questions but not appropriately. - Related Data Home Medications Medication Instructions Recorded Confirmed Aspirin 81 mg PO DAILY 11/21/18 01/11/19 Atorvastatin [Lipitor] 80 mg PO HS 11/21/18 01/11/19 Esomeprazole Magnesium [NexIUM] 40 mg PO DAILY 11/21/18 01/11/19 Cyclobenzaprine [Flexeril] 10 mg PO QID 11/30/18 01/11/19 Tiotropium 18 Mcg/Puff [Spiriva] 1 puff INHALATION RT-DAILY 12/06/18 01/11/19 Metoprolol Tartrate [Lopressor] 100 mg PO TID 01/11/19 01/11/19 predniSONE 20 mg PO DAILY 01/11/19 01/11/19 Previous Rx's Medication Instructions Recorded Gabapentin [Neurontin] 400 mg PO QID #120 cap 11/27/18 HYDROcodone/APAP 10-325MG [[place] 1 tab PO Q6H PRN #30 tab 11/27/18 10-325] Apixaban [Eliquis] 5 mg PO BID #20 tab 12/03/18 Digoxin 250 mcg PO DAILY #10 tablet 12/03/18 Diltiazem HCl 90 mg PO Q6H #40 tablet 12/03/18 Potassium Chloride ER [K-Dur 20] 20 meq PO BID #20 tab.er.prt 12/03/18 Tamsulosin HCl [Flomax] 0.4 mg PO HS #20 capsule 12/03/18 Allergies Allergy/AdvReac Type Severity Reaction Status Date / Time montelukast sodium AdvReac Itching Verified 01/11/19 09:38 [From Woody] Review of Systems ROS Statement: Those systems with pertinent positive or pertinent negative responses have been documented in the HPI. ROS Other: All systems not noted in ROS Statement are negative. 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 History of Any Multi-Drug Resistant Organisms: ESBL Date of last positivie culture/infection: 12/23/18 MDRO Source:: Sputum MDRO ESBL Past Surgical History: Adenoidectomy, Back Surgery, Heart Catheterization, Hernia Repair, Joint Replacement, Orthopedic Surgery, Tonsillectomy Additional Past Surgical History / Comment(s): L knee replacement, back surgery x3-failed fusion and 2 rods in lower back, L/R cataract surgery, bilat. rib removal (cervical), carpal tunnel R wrist, colonoscopy, L elbow surgery, abdominal hernia repair, 3 R inguinal hernia repairs, L inguinal hernia repair, rectal cystectomy.pain pump(ms) implanted removed 11/06/2018 Past Anesthesia/Blood Transfusion Reactions: Previous Problems w/ Anesthesia Additional Past Anesthesia/Blood Transfusion Reaction / Comment(s): With first surgery became belligerent when waking up. Past Psychological History: No Psychological Hx Reported Smoking Status: Former smoker Past Alcohol Use History: None Reported, Occasional Past Drug Use History: None Reported - Past Family History Mother Family Medical History: No Reported History Additional Family Medical History / Comment(s): Mother was healthy and lived to be 88 or 89yrs old. Father Family Medical History: Cancer Additional Family Medical History / Comment(s): Father of lung cancer in his early 70's. General Exam - General Exam Comments Initial Comments: Physical Exam GENERAL: Chronically ill-appearing elderly gentleman HENT: Normocephalic, Atraumatic. Dry mucous membranes EYES: PERRL, EOMI PULMONARY: Tachypnea CARDIOVASCULAR: RRR Warm and well perfused extremities ABDOMEN: Obese, Soft and nontender with normal bowel sounds. SKIN: Skin is clear with no lesions or rashes and otherwise unremarkable. Abrasion to left knee : Deferred NEUROLOGIC: Oriented to self only Actively hallucinating MUSCULOSKELETAL: Normal extremities with adequate strength and full range of motion. 2+ pitting edema PSYCHIATRIC: Actively hallucinating Limitations: altered mental status Course Vital Signs 01/11/19 01/11/19 01/11/19 03:39 06:14 08:15 Temperature 99.0 F 100.3 F H 99.5 F Pulse Rate 80 77 78 Respiratory 18 18 18 Rate Blood Pressure 101/43 103/78 105/74 O2 Sat by Pulse 94 L 96 97 Oximetry 01/11/19 01/11/19 01/11/19 09:00 09:01 09:08 Temperature Pulse Rate 76 76 74 Respiratory 15 Rate Blood Pressure 120/85 O2 Sat by Pulse 94 L Oximetry 01/11/19 01/11/19 01/11/19 11:00 12:00 13:00 Temperature 98 F Pulse Rate 69 70 67 Respiratory 20 21 20 Rate Blood Pressure 120/53 124/52 128/58 O2 Sat by Pulse 95 94 L 93 L Oximetry 01/11/19 14:00 Temperature 98 F Pulse Rate 71 Respiratory 20 Rate Blood Pressure 126/77 O2 Sat by Pulse 92 L Oximetry EKG Findings - EKG Comments: EKG Findings:: EKG was obtained at 346 exam, rate of 78 rhythm is sinus there is normal axis there are normal intervals, W[place] 196, QRS 80, QTC [address] depressions laterally no acute ST elevations no evidence of acute infarction. Medical Decision Making - Medical Decision Making The patient was seen and evaluated history was obtained from EMS, and review of medical record Patient very well known to the emergency department due to his recent visits for COPD exacerbations and recurrent pneumonias. Patient presenting today with generalized weakness, fall with no obvious trauma, fever and confusion On evaluation the patient does not appear to be in acute respiratory distress there is noted to be febrile and is very confused. Patient appears quite dehydrated. Labs and imaging ordered ABG was ordered to evaluate for possible hypercapnic respiratory failure rate causing the altered mental status, ABG was at baseline for patient X-ray does have some infiltrate, similar previous however will be empirically treated for pneumonia given history Troponin mildly elevated lactic elevated 2.3 Patient care was discussed with the admitting physician Dr. Jung who accepts admission for chronically ill gentleman presenting with fever, altered mental status - Lab Data Result diagrams: 01/11/19 03:54 01/11/19 03:54 Lab Results 01/11/19 01/11/19 01/11/19 Range/Units 03:54 03:54 03:54 WBC 11.4 H (3.8-10.6) k/uL RBC 2.76 L (4.30-5.90) m/uL Hgb 8.8 L (13.0-17.5) gm/dL Hct 26.9 L (39.0-53.0) % MCV 97.3 (80.0-100.0) fL MCH 31.7 (25.0-35.0) pg MCHC 32.6 (31.0-37.0) g/dL RDW 18.7 H (11.5-15.5) % Plt Count 272 (150-450) k/uL Neutrophils % (Manual) 74 % Lymphocytes % (Manual) 18 % Monocytes % (Manual) 6 % Eosinophils % (Manual) 3 % Metamyelocytes % 1 % Neutrophils # (Manual) 8.44 H (1.3-7.7) k/uL Lymphocytes # (Manual) 2.05 (1.0-4.8) k/uL Monocytes # (Manual) 0.68 (0-1.0) k/uL Eosinophils # (Manual) 0.34 (0-0.7) k/uL Metamyelocytes # (Man) 0.11 H (0) k/uL Nucleated RBCs 2 H (0-0) /100 WBC Manual Slide Review Performed Polychromasia Present Hypochromasia Slight Anisocytosis Slight Macrocytosis Slight PT (9.0-12.0) sec INR (<1.2) APTT (22.0-30.0) sec Sample Site ABG pH (7.35-7.45) ABG pCO2 (35-45) mmHg ABG pO2 (83-108) mmHg ABG HCO3 (21-25) mmol/L ABG Total CO2 (19-24) mmol/L ABG O2 Saturation (94-97) % ABG Base Excess mmol/L Nico Test FiO2 % Sodium 138 (137-145) mmol/L Potassium 4.9 (3.5-5.1) mmol/L Chloride 99 (98-107) mmol/L Carbon Dioxide 32 H (22-30) mmol/L Anion Gap 7 mmol/L BUN 20 (9-20) mg/dL Creatinine 1.06 (0.66-1.25) mg/dL Est GFR (CKD-EPI)AfAm 82 (>60 ml/min/1.73 sqM) Est GFR (CKD-EPI)NonAf 71 (>60 ml/min/1.73 sqM) Glucose 105 H (74-99) mg/dL Lactic Ac Sepsis Rflx Plasma Lactic Acid Isaac 2.6 H* (0.7-2.0) mmol/L Calcium 8.3 L (8.4-10.2) mg/dL Total Bilirubin 0.9 (0.2-1.3) mg/dL AST 53 (17-59) U/L ALT 30 (21-72) U/L Alkaline Phosphatase 71 (38-126) U/L Troponin I (0.000-0.034) ng/mL Total Protein 6.0 L (6.3-8.2) g/dL Albumin 3.3 L (3.5-5.0) g/dL 01/11/19 01/11/19 01/11/19 Range/Units 03:54 03:54 04:15 WBC (3.8-10.6) k/uL RBC (4.30-5.90) m/uL Hgb (13.0-17.5) gm/dL Hct (39.0-53.0) % MCV (80.0-100.0) fL MCH (25.0-35.0) pg MCHC (31.0-37.0) g/dL RDW (11.5-15.5) % Plt Count (150-450) k/uL Neutrophils % (Manual) % Lymphocytes % (Manual) % Monocytes % (Manual) % Eosinophils % (Manual) % Metamyelocytes % % Neutrophils # (Manual) (1.3-7.7) k/uL Lymphocytes # (Manual) (1.0-4.8) k/uL Monocytes # (Manual) (0-1.0) k/uL Eosinophils # (Manual) (0-0.7) k/uL Metamyelocytes # (Man) (0) k/uL Nucleated RBCs (0-0) /100 WBC Manual Slide Review Polychromasia Hypochromasia Anisocytosis Macrocytosis PT 10.0 (9.0-12.0) sec INR 0.9 (<1.2) APTT 22.4 (22.0-30.0) sec Sample Site lbrac ABG pH 7.47 H (7.35-7.45) ABG pCO2 46 H (35-45) mmHg ABG pO2 56 L* (83-108) mmHg ABG HCO3 34 H (21-25) mmol/L ABG Total CO2 35 H (19-24) mmol/L ABG O2 Saturation 88.4 L (94-97) % ABG Base Excess 9.7 mmol/L Nico Test yes FiO2 40 % Sodium (137-145) mmol/L Potassium (3.5-5.1) mmol/L Chloride (98-107) mmol/L Carbon Dioxide (22-30) mmol/L Anion Gap mmol/L BUN (9-20) mg/dL Creatinine (0.66-1.25) mg/dL Est GFR (CKD-EPI)AfAm (>60 ml/min/1.73 sqM) Est GFR (CKD-EPI)NonAf (>60 ml/min/1.73 sqM) Glucose (74-99) mg/dL Lactic Ac Sepsis Rflx Plasma Lactic Acid Isaac (0.7-2.0) mmol/L Calcium (8.4-10.2) mg/dL Total Bilirubin (0.2-1.3) mg/dL AST (17-59) U/L ALT (21-72) U/L Alkaline Phosphatase (38-126) U/L Troponin I 0.166 H* (0.000-0.034) ng/mL Total Protein (6.3-8.2) g/dL Albumin (3.5-5.0) g/dL 01/11/19 Range/Units 04:40 WBC (3.8-10.6) k/uL RBC (4.30-5.90) m/uL Hgb (13.0-17.5) gm/dL Hct (39.0-53.0) % MCV (80.0-100.0) fL MCH (25.0-35.0) pg MCHC (31.0-37.0) g/dL RDW (11.5-15.5) % Plt Count (150-450) k/uL Neutrophils % (Manual) % Lymphocytes % (Manual) % Monocytes % (Manual) % Eosinophils % (Manual) % Metamyelocytes % % Neutrophils # (Manual) (1.3-7.7) k/uL Lymphocytes # (Manual) (1.0-4.8) k/uL Monocytes # (Manual) (0-1.0) k/uL Eosinophils # (Manual) (0-0.7) k/uL Metamyelocytes # (Man) (0) k/uL Nucleated RBCs (0-0) /100 WBC Manual Slide Review Polychromasia Hypochromasia Anisocytosis Macrocytosis PT (9.0-12.0) sec INR (<1.2) APTT (22.0-30.0) sec Sample Site ABG pH (7.35-7.45) ABG pCO2 (35-45) mmHg ABG pO2 (83-108) mmHg ABG HCO3 (21-25) mmol/L ABG Total CO2 (19-24) mmol/L ABG O2 Saturation (94-97) % ABG Base Excess mmol/L Nico Test FiO2 % Sodium (137-145) mmol/L Potassium (3.5-5.1) mmol/L Chloride (98-107) mmol/L Carbon Dioxide (22-30) mmol/L Anion Gap mmol/L BUN (9-20) mg/dL Creatinine (0.66-1.25) mg/dL Est GFR (CKD-EPI)AfAm (>60 ml/min/1.73 sqM) Est GFR (CKD-EPI)NonAf (>60 ml/min/1.73 sqM) Glucose (74-99) mg/dL Lactic Ac Sepsis Rflx Y Plasma Lactic Acid Isaac (0.7-2.0) mmol/L Calcium (8.4-10.2) mg/dL Total Bilirubin (0.2-1.3) mg/dL AST (17-59) U/L ALT (21-72) U/L Alkaline Phosphatase (38-126) U/L Troponin I (0.000-0.034) ng/mL Total Protein (6.3-8.2) g/dL Albumin (3.5-5.0) g/dL Disposition Clinical Impression: Fall, HCAP (healthcare-associated pneumonia), Acute exacerbation of chronic obstructive airways disease, At risk for readmission to hospital Disposition: ADMITTED IP TO THIS HOSP Condition: Serious
[2019-01-11 04:17] LABS: Albumin 3.3 g/dL (3.5-5.0); Calcium 8.3 mg/dL (8.4-10.2); Total Bilirubin 0.9 mg/dL (0.2-1.3)
[2019-01-11] MEDS: SODIUM CHLORIDE 0.9% 500 ML 500 ML IV SCH ×2 (04:17→05:08)
[2019-01-11 04:18] LABS: ABG Base Excess 9.7 mmol/L; ABG HCO3 34 mmol/L (21-25); ABG Oxygen Saturation 88.4 % (94-97); ABG PCO2 46 mmHg (35-45); ABG PH 7.47 (7.35-7.45); ABG TCO2 35 mmol/L (19-24)
[2019-01-11 04:23] LABS: Potassium 4.9 mmol/L (3.5-5.1)
[2019-01-11 04:25] LABS: Anisocytosis Slight; HCT 26.9 % (39.0-53.0); HGB 8.8 gm/dL (13.0-17.5); Hypochromasia Slight; MCH 31.7 pg (25.0-35.0); MCHC 32.6 g/dL (31.0-37.0); MCV 97.3 fL (80.0-100.0); Macrocytosis Slight; Mean Platelet Volume 7.4; Platelet Count 272 k/uL (150-450); RBC 2.76 m/uL (4.30-5.90); RDW 18.7 % (11.5-15.5)
[2019-01-11 04:30] LABS: INR 0.9 (<1.2); Partial Thromboplastin Time 22.4 sec (22.0-30.0)
[2019-01-11 04:31] LABS: ABG PO2 56 mmHg (83-108)
[2019-01-11 04:32] LABS: Allen Test Performed? yes
[2019-01-11] MEDS ORDERED: PIPERACILLIN-TAZOBACTAM 3.375 GM in SODIUM CHLORIDE 0.9% 100 ML IVPB STA (04:46)
[2019-01-11] MEDS ORDERED: VANCOMYCIN IV PER PHARMACY 1 EACH MISC MISCELLANE PRN (04:46)
[2019-01-11] MEDS ORDERED: VANCOMYCIN 1,500 MG in SODIUM CHLORIDE 0.9% 250 ML IVPB STA (04:49)
--- NOTE | 2019-01-11 04:51 | XR ---
EXAM: XR Chest, 2 Views CLINICAL HISTORY: ITS.REASON XR Reason: Fever TECHNIQUE: Frontal and lateral views of the chest. COMPARISON: 12/21/18 x-ray IMPRESSION: Cardiomegaly. Increased bilateral lower lobe opacities, possibly edema, aspiration, or atelectasis. No pleural effusion.
[2019-01-11 04:55] LABS: Eosinophils # (M) 0.34 k/uL (0-0.7); Lymphocytes # (M) 2.05 k/uL (1.0-4.8); Metamyelocytes # (M) 0.11 k/uL (0); Metamyelocytes % 1 %; Monocytes # (M) 0.68 k/uL (0-1.0); Neutrophils # (M) 8.44 k/uL (1.3-7.7); Neutrophils % (M) 74 %; Nucleated Red Blood Cells 2 /100 WBC (0-0); Polychromasia Present; Total Cells Counted 200; WBC 11.4 k/uL (3.8-10.6)
[2019-01-11] MEDS ORDERED: NALOXONE 0.4 MG/ML 1 ML VIAL IV PRN (05:34)
[2019-01-11] MEDS ORDERED: HYDROCORTISONE SUCCINATE 100 MG/2 ML VIAL IV STA (07:00)
--- NOTE | 2019-01-11 07:00 | P.HPIM ---
History of Present Illness H&P Date: 01/11/19 Chief Complaint: Confusion 68-year-old male with history of recurrent pneumonia COPD on 4 L home oxygen diastolic CHF, paroxysmal A. fib on Eliquis Patient was recently discharged from the hospital and placed at [facility] to receive 2 weeks of Invanz for Klebsiella ESBL pneumonia. Patient was discharged on 4 days ago went home he did well for 2 days and then Friday started feeling off poor by mouth intake and decreased energy level. And then on Friday he was sleeping basically all day not being engaged with any activities. Normally the helps with his medications and she reports that he is compliant with that. This morning he woke up from sleep on Friday and slipped off the bed hit his knee that's when the was helping him up noticed that he is very warm to the touch, she reports that he spend the night mumbling words and seemed to be confused that's when she suspected that he is sick again decided to bring him to the hospital. There is no report of coughing, no report of any urinary symptoms or changes in his bowel movements. No report of GI bleeding. No report of any head injuries Otherwise patient unable to provide any meaningful history due to confusion and mental status changes Of note patient has been on high-dose steroids in tapering doses of steroids back to back for the past 2 months I suspect some component of secondary adrenal insufficiency during this new episode of sepsis In the ED chest x-ray revealed worsening opacities over bilateral lung basis, elevated white count elevated lactic acid and fever of 103 patient admitted for sepsis from possible underlying pneumonia. Review of Systems ROS unobtainable: due to mental status Past Medical History Past Medical History: Coronary Artery Disease (CAD), Chest Pain / Angina, COPD, CVA/TIA, Eye Disorder, GERD/Reflux, Hyperlipidemia, Hypertension, Osteoarthritis (OA), Prostate Disorder Additional Past Medical History / Comment(s): BPH, vertigo due to inner ear problem, states has 30% blockage in his heart, TIA, hiatal hernia, IBS, bilatera l tinnitis. History of Any Multi-Drug Resistant Organisms: ESBL Date of last positivie culture/infection: 12/23/18 MDRO Source:: Sputum MDRO ESBL Past Surgical History: Adenoidectomy, Back Surgery, Heart Catheterization, Hernia Repair, Joint Replacement, Orthopedic Surgery, Tonsillectomy Additional Past Surgical History / Comment(s): L knee replacement, back surgery x3-failed fusion and 2 rods in lower back, L/R cataract surgery, bilat. rib removal (cervical), carpal tunnel R wrist, colonoscopy, L elbow surgery, abdominal hernia repair, 3 R inguinal hernia repairs, L inguinal hernia repair, rectal cystectomy.pain pump(ms) implanted removed 11/06/2018 Past Anesthesia/Blood Transfusion Reactions: Previous Problems w/ Anesthesia Additional Past Anesthesia/Blood Transfusion Reaction / Comment(s): With first surgery became belligerent when waking up. Past Psychological History: No Psychological Hx Reported Smoking Status: Former smoker Past Alcohol Use History: None Reported, Occasional Past Drug Use History: None Reported - Past Family History Mother Family Medical History: No Reported History Additional Family Medical History / Comment(s): Mother was healthy and lived to be 88 or 89yrs old. Father Family Medical History: Cancer Additional Family Medical History / Comment(s): Father of lung cancer in his early 70's. Medications and Allergies Home Medications Medication Instructions Recorded Confirmed Type Multivitamins, Thera [Multivitamin 1 tab PO DAILY 05/19/18 12/20/18 History (formulary)] Aspirin 81 mg PO DAILY 11/21/18 12/20/18 History Atorvastatin [Lipitor] 80 mg PO HS 11/21/18 12/20/18 History Esomeprazole Magnesium [NexIUM] 40 mg PO DAILY 11/21/18 12/20/18 History Ipratropium-Albuterol Nebulize 3 ml INHALATION RT-QID PRN 11/21/18 12/20/18 History [Duoneb 0.5 mg-3 mg/3 ml Soln] Gabapentin [Neurontin] 400 mg PO QID #120 cap 11/27/18 12/20/18 Rx HYDROcodone/APAP 10-325MG [[place] 1 tab PO Q6H PRN #30 tab 11/27/18 12/20/18 Rx 10-325] Cyclobenzaprine [Flexeril] 10 mg PO Q8H PRN 11/30/18 12/20/18 History Apixaban [Eliquis] 5 mg PO BID #20 tab 12/03/18 12/20/18 Rx Budesonide-Formot 160-4.5 Mcg 2 puff INHALATION RT-BID #1 inhaler 12/03/18 12/20/18 Rx [Symbicort 160-4.5 Mcg Inhaler] Digoxin 250 mcg PO DAILY #10 tablet 12/03/18 12/20/18 Rx Diltiazem HCl 90 mg PO Q6H #40 tablet 12/03/18 12/20/18 Rx Metoprolol Tartrate [Lopressor] 100 mg PO Q6H #40 tablet 12/03/18 12/20/18 Rx Potassium Chloride ER [K-Dur 20] 20 meq PO BID #20 tab.er.prt 12/03/18 12/20/18 Rx Tamsulosin HCl [Flomax] 0.4 mg PO HS #20 capsule 12/03/18 12/20/18 Rx Tiotropium 18 Mcg/Puff [Spiriva] 1 puff INHALATION RT-DAILY 12/06/18 12/20/18 History Furosemide [Lasix] 40 mg PO DAILY #30 tab 12/15/18 12/20/18 Rx Sodium Bicarbonate Tab 325 mg PO TID #90 tab 12/15/18 12/20/18 Rx predniSONE See Taper PO DIRECTED #48 tab 12/15/18 12/20/18 Rx Ertapenem [INVanz] 1 gm IVPB Q24H #13 bag 12/23/18 Rx metFORMIN HCL [Glucophage] 1,000 mg PO BID-W/MEALS #60 tab 12/24/18 Rx Allergies Allergy/AdvReac Type Severity Reaction Status Date / Time montelukast sodium AdvReac Itching Verified 12/20/18 07:11 [From [facility]] Physical Exam Vitals: Vital Signs Temp Pulse Resp BP Pulse Ox 01/11/19 03:39 99.0 F 80 18 101/43 94 L Intake and Output 01/10/19 01/10/19 01/11/19 14:59 22:59 06:59 Other: Weight 94.347 kg Constitutional: Patient is confused, however he is following simple commands and unable to get his attention with verbal reassurance he makes good eye contact when stimulated. Eyes: Anicteric sclerae, moist conjunctiva, no lid-lag Pupils equal round reactive to light ENMT: NC/AT Oropharynx clear, no erythema, exudates Neck: Supple, FROM, no masses, or JVD No carotid bruits No thyromegaly Lungs: Bilateral lung basis with decreased breath sounds and rales, no wheezing Clear to percussion Normal respiratory effort, no accessory muscle use Cardiovascular: Heart regular in rate and rhythm, No murmurs, gallops, or rubs Unilateral left lower extremity +2 peripheral edema Abdominal: Soft Nontender, no guarding, rebound or rigidity Abdomen moving with respiration Normoactive bowel sounds No hepatomegaly, No splenomegaly No palpable mass No abdominal wall hernia noted Skin: Skin scraping over bilateral elbows and right knee Normal temperature, tone, texture, turgor No induration No subcutaneous nodules Extremities: No digital cyanosis No clubbing Pedal pulses intact and symmetrical Radial pulses intact and symmetrical No calf tenderness Psychiatric: Patient is confused, however will make good eye contact with gentle verbal stimulation and reassurance and he would follow simple commands, o riented to self only Neuro Muscles Strength 4/5 in all 4 extremities Sensation to light touch grossly present throughout Cranial nerves II-XII grossly intact No focal sensory deficits Lymphatics: no palpable cervical or supraclavicular , or inguinal lymph nodes Results CBC & Chem 7: 01/11/19 03:54 01/11/19 03:54 Labs: Abnormal Lab Results - Last 24 Hours (Table) 01/11/19 01/11/19 01/11/19 Range/Units 03:54 03:54 03:54 WBC 11.4 H (3.8-10.6) k/uL RBC 2.76 L (4.30-5.90) m/uL Hgb 8.8 L (13.0-17.5) gm/dL Hct 26.9 L (39.0-53.0) % RDW 18.7 H (11.5-15.5) % Neutrophils # (Manual) 8.44 H (1.3-7.7) k/uL Metamyelocytes # (Man) 0.11 H (0) k/uL Nucleated RBCs 2 H (0-0) /100 WBC ABG pH (7.35-7.45) ABG pCO2 (35-45) mmHg ABG pO2 (83-108) mmHg ABG HCO3 (21-25) mmol/L ABG Total CO2 (19-24) mmol/L ABG O2 Saturation (94-97) % Carbon Dioxide 32 H (22-30) mmol/L Glucose 105 H (74-99) mg/dL Plasma Lactic Acid Isaac 2.6 H* (0.7-2.0) mmol/L Calcium 8.3 L (8.4-10.2) mg/dL Troponin I (0.000-0.034) ng/mL Total Protein 6.0 L (6.3-8.2) g/dL Albumin 3.3 L (3.5-5.0) g/dL 01/11/19 01/11/19 Range/Units 03:54 04:15 WBC (3.8-10.6) k/uL RBC (4.30-5.90) m/uL Hgb (13.0-17.5) gm/dL Hct (39.0-53.0) % RDW (11.5-15.5) % Neutrophils # (Manual) (1.3-7.7) k/uL Metamyelocytes # (Man) (0) k/uL Nucleated RBCs (0-0) /100 WBC ABG pH 7.47 H (7.35-7.45) ABG pCO2 46 H (35-45) mmHg ABG pO2 56 L* (83-108) mmHg ABG HCO3 34 H (21-25) mmol/L ABG Total CO2 35 H (19-24) mmol/L ABG O2 Saturation 88.4 L (94-97) % Carbon Dioxide (22-30) mmol/L Glucose (74-99) mg/dL Plasma Lactic Acid Isaac (0.7-2.0) mmol/L Calcium (8.4-10.2) mg/dL Troponin I 0.166 H* (0.000-0.034) ng/mL Total Protein (6.3-8.2) g/dL Albumin (3.5-5.0) g/dL Assessment and Plan Assessment: 68-year-old malewith history of diastolic CHF paroxysmal A. fib recurrent pneumonia COPD on 4 L home oxygen Admitted as an inpatient with significant length of stay more than 48 hoursdue to acute mental status changes secondary to underlying pneumonia and sepsis. She has recently discharged from [facility] rehab where he was treated for pneum onia with Invanz finished a course 4 days ago went home and then 2 days later felt sick again Plan: Acute metabolic encephalopathy secondary to underlying sepsis from possible recurrent pneumonia Lactic acidosis secondary to above Slightly elevated troponin most likely secondary to above Follow-up cultures Broad-spectrum antibiotics ID consultation Patient will be given stress dose of steroids due to being on steroids for the past 2 months suspect secondary adrenal insufficiency Supportive care IV fluid hydration Unilateral left lower extremity edema rule out DVT Patient with frequent hospitalization however he is on Eliquis f for A. fib Chronic conditions Chronic anemia declining since October, patient denies evidence of bleeding, cont inue to monitor Chronic diastolic congestive heart failure currently compensated History of CVA Hypertension COPD on 4 L oxygen Paroxysmal A. fib on Eliquis Continue home meds with hold parameters on blood pressure meds DVT prophylaxis patient on Eliquis for A. fib Patient having foul-smelling diarrhea I will check for C. diff Preformed a thorough record review from recent hospitalization recurrent hospitalization for pneumonia most recent one where he was discharged 2 weeks ago was diagnosed with Klebsiella pneumonia ESBL and patient was treated with extended course of Invanz for which she was placed at half-way and was discharged 4 days ago Surrogate decision-maker: Patient CODE STATUS: Full code Discussed with: Patient, ER, RN Anticipated discharge: 48-[address]: Pending clinical course A total of 60 minutes was spent on the care of this complex patient more than 50% of the time was spent in counseling and care coordination.
[2019-01-11] MEDS ORDERED: IPRATROPIUM-ALBUTEROL 3 ML NEB INHALATION PRN (07:01)
--- NOTE | 2019-01-11 08:00 | US ---
EXAMINATION TYPE: US venous doppler duplex LE LT DATE OF EXAM: 01/11/2019 7:01 AM COMPARISON: NONE CLINICAL HISTORY: unilateral edema r/o DVT, patient on anticoagulant. SIDE PERFORMED: Left TECHNIQUE: The lower extremity deep venous system is examined utilizing real time linear array sonog ingrid with graded compression, doppler sonography and color-flow sonography. VESSELS IMAGED: External Iliac Vein (EIV) Common Femoral Vein Deep Femoral Vein Greater Saphenous Vein * Femoral Vein Popliteal Vein Small Saphenous Vein * Proximal Calf Veins (* superficial vessels) Grayscale, color doppler, spectral doppler imaging performed of the deep veins of the left lower extr emity. There is normal flow, compressibility, vascular waveforms. Left Leg: Negative for DVT IMPRESSION: No sonographic evidence of deep venous thrombosis within the left lower extremity.
[2019-01-11 08:23] LABS: Appearance,Urine Clear (Clear); Bilirubin,Urine Negative (Negative); Blood,Urine Negative (Negative); Color,Urine Light Yellow; Glucose,Urine (UA) Negative (Negative); Ketones,Urine Negative (Negative); Leukocyte Esterase,Urine Negative (Negative); Nitrite,Urine Negative (Negative); Protein,Urine Negative (Negative); Specific Gravity,Urine 1.009 (1.001-1.035); Urobilinogen,Urine <2.0 mg/dL (<2.0)
[2019-01-11] MEDS: IPRATROPIUM 0.5 MG/2.5 ML NEBU INHALATION SCH ×2 (08:57→13:38)
[2019-01-11] MEDS: IPRATROPIUM-ALBUTEROL 3 ML NEB INHALATION SCH ×4 (08:58→23:44)
[2019-01-11] MEDS: SYMBICORT 160-4.5 MCG INHALER INHALATION SCH ×2 (09:00→23:45)
[2019-01-11] MEDS: DIGOXIN 250 MCG TAB PO SCH (09:50)
[2019-01-11] MEDS: ASPIRIN 81 MG PO SCH (09:50)
[2019-01-11] MEDS: PANTOPRAZOLE 40 MG TABLET PO SCH (09:50)
[2019-01-11] MEDS: DILTIAZEM ORAL 30 MG TAB PO SCH ×3 (09:50→17:13)
[2019-01-11] MEDS: METOPROLOL TARTRATE 50 MG TAB PO SCH ×4 (09:50→22:23)
[2019-01-11 10:18] VITALS: BMI 31.6
[2019-01-11] MEDS: APIXABAN 5 MG TAB PO SCH ×2 (10:51→22:23)
[2019-01-11] MEDS ORDERED: ACETAMINOPHEN TAB 325 MG TAB PO PRN (11:53)
--- NOTE | 2019-01-11 12:31 | XR ---
EXAMINATION TYPE: XR ankle limited LT DATE OF EXAM: 01/11/2019 CLINICAL HISTORY: Left ankle pain with no known injury. Limited range of motion. TECHNIQUE: Frontal and lateral images of the left ankle are obtained. COMPARISON: None. FINDINGS: Probable prominent vascular groove is seen of the distal fibula with no overlying soft tiss ue swelling however oblique image is recommended for confirmation. The ankle mortise appears within normal limits. There are plantar and Achilles heel spurs noted. Very minimal hypertrophic degenerativ e changes seen of the dorsal midfoot. The overlying soft tissue appears unremarkable. IMPRESSION: Lucency of the distal left fibula likely represents a vascular groove as there is no over lying soft tissue swelling however oblique image is recommended for confirmation.
[2019-01-11] MEDS: predniSONE 20 MG TAB PO SCH (15:43)
[2019-01-11] MEDS: DILTIAZEM ORAL 60 MG TAB PO SCH ×2 (18:26→23:15)
[2019-01-11] MEDS ORDERED: RX INFO: IV CONTRAST WAS GIVEN 1 EACH MISC MISCELLANE PRN (20:50)
--- NOTE | 2019-01-11 20:50 | P.CNPUL ---
History of Present Illness Consult date: 01/11/19 Reason for consult: dyspnea, pneumonia History of present illness: This is a 68-year-old male patient is well-known to me from previous hospitali zations the patient was last seen in the hospital on 12/21/2018 for COPD and chronic hypoxic respiratory failure. The patient also known to have approximately atrial fibrillation. The patient has had several hospitalization. He was discharged from the hospital on 12/24/2018. During his early hos pitalization the patient was found to have ESBL producing capsula pneumoniae and sravan bacterium and the patient was discharged home on IV Invanz. The patient was seen by infectious disease. The patient is sedated infusion in a subacute halfway facility. He was discharged on 40 of oxygen nasal cannula. His COPD is improved and his overall condition was also improving. The patient came in yesterday to the emergency department as the patient was discharged approximately 4 days ago from the skilled facility back home. He did well for on today's and following that his condition got worse and the patient started feeling poor and his oral intake dropped and he had decreased energy level. He had increased sleepiness. The patient woke up this morning and slipped off his bed and he had his knee. He was quite warm to touch. No reported nausea vomiting diarrhea or aspiration. The patient came into the emergency department and the patient was found to have some degree of confusion and altered mentation. Unable to provide any history. In the emergency department the patient is a temperature 103 and he was admitted for an underlying pneumonia. The chest x-ray also showed some bilateral infiltrates in lung bases. His white cell count was 11.4. Hemoglobin was at 8.8. The blood gases was done and showed a pH of 7.47 with a pCO2 of 46 and pO2 of 56 with an FiO2 of 40%. His troponin was at 0.16. Lactic acid level was at 2.6 and dropped down to 1.1. Creatinine was normal at 1.06. UA was negative. X-ray of the ankle showed no evidence of any fracture. Doppler of the lower extremity was also done that showed no evidence of any DVT in the lower extremity. The patient is currently on a combination of cefepime and vancomycin. He is on a prednisone 20 mg as part of his burst taper. Outpatient medications of been ordered resume. He is also on DuoNeb nebulized treatments around the clock. He is on 6 L of oxygen by nasal cannula with a pulse ox of 94%. Review of Systems Constitutional: The patient feels lethargic and weak and he also has some altered mentation, and the same time the patient was having fevers Eyes: denies blurred vision, denies pain Ears, nose, mouth and throat: Denies headache, Denies sore throat Cardiovascular: Denies chest pain, Denies shortness of breath Respiratory: Reports congestion, Reports cough with sputum, Reports dyspnea, Reports hemoptysis, Reports home oxygen, Reports respiratory infections, the patient has a congested cough. Gastrointestinal: Denies abdominal pain, Denies diarrhea, Denies nausea, Denies vomiting Musculoskeletal: Denies myalgias Integumentary: Denies pruritus, Denies rash Neurological: There is history of mental status changes and as such the history provided by the patient is quite limited. Psychiatric: Denies anxiety, Denies depression Endocrine: Denies fatigue, Denies weight change Past Medical History Past Medical History: Coronary Artery Disease (CAD), Chest Pain / Angina, COPD, CVA/TIA, GERD/Reflux, Hearing Disorder / Deafness, Hyperlipidemia, Hypertension, Osteoarthritis (OA), Prostate Disorder Additional Past Medical History / Comment(s): Pt recently admitted to [facility] on 12/20/18 with acute on chronic hypoxic respiratory failure, acute on chronic COPD, HCAP, elevated troponin, afib with RVR. Other Hx; Severe COPD, recurrent pneumonia, TIA, hiatal hernia, IBS, chronic diarrhea, BPH, 11/2018 pt had seizure which spouse states was d/t abrupt discontinuation of his morphine, chronic back pain, chronic bilateral leg pain, vertigo d/t inner ear problem, bilateral tinnitis. History of Any Multi-Drug Resistant Organisms: ESBL Date of last positivie culture/infection: 12/23/18 MDRO Source:: Sputum MDRO ESBL Past Surgical History: Adenoidectomy, Back Surgery, Heart Catheterization, Hernia Repair, Joint Replacement, Orthopedic Surgery, Tonsillectomy Additional Past Surgical History / Comment(s): L knee replacement, back surgery x3-failed fusion and 2 rods in lower back, L/R cataract surgery, bilat. rib removal (cervical), carpal tunnel R wrist, colonoscopy, L elbow surgery, abd ominal hernia repair, 3 R inguinal hernia repairs, L inguinal hernia repair, rectal cystectomy.pain pump(ms) implanted removed 11/06/2018 Past Anesthesia/Blood Transfusion Reactions: Previous Problems w/ Anesthesia Additional Past Anesthesia/Blood Transfusion Reaction / Comment(s): With first surgery became belligerent when waking up. Smoking Status: Former smoker - Past Family History Mother Family Medical History: No Reported History Additional Family Medical History / Comment(s): Mother was healthy and lived to be 88 or 89yrs old. Father Family Medical History: Cancer Additional Family Medical History / Comment(s): Father of lung cancer in his early 70's. Medications and Allergies Home Medications Medication Instructions Recorded Confirmed Type Aspirin 81 mg PO DAILY 11/21/18 01/11/19 History Atorvastatin [Lipitor] 80 mg PO HS 11/21/18 01/11/19 History Esomeprazole Magnesium [NexIUM] 40 mg PO DAILY 11/21/18 01/11/19 History Gabapentin [Neurontin] 400 mg PO QID #120 cap 11/27/18 01/11/19 Rx HYDROcodone/APAP 10-325MG [[place] 1 tab PO Q6H PRN #30 tab 11/27/18 01/11/19 Rx 10-325] Cyclobenzaprine [Flexeril] 10 mg PO QID 11/30/18 01/11/19 History Apixaban [Eliquis] 5 mg PO BID #20 tab 12/03/18 01/11/19 Rx Digoxin 250 mcg PO DAILY #10 tablet 12/03/18 01/11/19 Rx Diltiazem HCl 90 mg PO Q6H #40 tablet 12/03/18 01/11/19 Rx Potassium Chloride ER [K-Dur 20] 20 meq PO BID #20 tab.er.prt 12/03/18 01/11/19 Rx Tamsulosin HCl [Flomax] 0.4 mg PO HS #20 capsule 12/03/18 01/11/19 Rx Tiotropium 18 Mcg/Puff [Spiriva] 1 puff INHALATION RT-DAILY 12/06/18 01/11/19 History Metoprolol Tartrate [Lopressor] 100 mg PO TID 01/11/19 01/11/19 History predniSONE 20 mg PO DAILY 01/11/19 01/11/19 History Allergies Allergy/AdvReac Type Severity Reaction Status Date / Time montelukast sodium AdvReac Itching Verified 01/11/19 09:38 [From Singulair] Physical Exam Vitals: Vital Signs Temp Pulse Pulse Resp BP BP Pulse Ox 01/11/19 16:11 94 L 01/11/19 16:00 98.3 F 77 20 115/51 92 L 01/11/19 14:00 98 F 71 20 126/77 92 L 01/11/19 13:00 67 20 128/58 93 L 01/11/19 12:00 70 21 124/52 94 L 01/11/19 11:00 98 F 69 20 120/53 95 01/11/19 09:08 74 01/11/19 09:01 76 01/11/19 09:00 76 15 120/85 94 L 01/11/19 08:15 99.5 F 78 18 105/74 97 01/11/19 06:14 100.3 F H 77 18 103/78 96 01/11/19 03:39 99.0 F 80 18 101/43 94 L Intake and Output 01/11/19 01/11/19 01/11/19 06:59 14:59 22:59 Other: Voiding Method Diaper # Voids 1 Weight 94.347 kg GENERAL EXAM: 68-year-old male patient, the 6 L high flow nasal cannula with a pulse ox of 95%, comfortable in no apparent distress. HEAD: Normocephalic/atraumatic. EYES: Normal reaction of pupils, equal size. Conjunctiva pink, sclera white. NOSE: Clear with pink turbinates. THROAT: No erythema or exudates. NECK: No masses, no JVD, no thyroid enlargement, no adenopathy. CHEST: No chest wall deformity. Symmetrical expansion. LUNGS: Diminished breath sounds, with the expiratory wheezes and rhonchi at the bases, more so on the left CVS: Regular rate and rhythm, normal S1 and S2, no gallops, no murmurs, no rubs ABDOMEN: Soft, nontender. No hepatosplenomegaly, normal bowel sounds, no guardi ng or rigidity. EXTREMITIES: No clubbing, no edema, no cyanosis, 2+ pulses and upper and lower extremities. MUSCULOSKELETAL: Muscle strength and tone normal. SPINE: No scoliosis or deformity SKIN: No rashes CENTRAL NERVOUS SYSTEM: No focal deficits, tone is normal in all 4 extremities. Poor historian, augmentation PSYCHIATRIC: Unable to do due to the above-mentioned altered mentation Results - Laboratory Findings CBC and BMP: 01/11/19 03:54 01/11/19 03:54 ABG ABG pH 7.47 (7.35-7.45) H 01/11/19 04:15 ABG pCO2 46 mmHg (35-45) H 01/11/19 04:15 ABG pO2 56 mmHg (83-108) L* 01/11/19 04:15 ABG O2 Saturation 88.4 % (94-97) L 01/11/19 04:15 PT/INR, D-dimer PT 10.0 sec (9.0-12.0) 01/11/19 03:54 INR 0.9 (<1.2) 01/11/19 03:54 Abnormal lab findings: Abnormal Labs 01/11/19 01/11/19 01/11/19 03:54 03:54 03:54 WBC 11.4 H RBC 2.76 L Hgb 8.8 L Hct 26.9 L RDW 18.7 H Neutrophils # (Manual) 8.44 H Metamyelocytes # (Man) 0.11 H Nucleated RBCs 2 H ABG pH ABG pCO2 ABG pO2 ABG HCO3 ABG Total CO2 ABG O2 Saturation Carbon Dioxide 32 H Glucose 105 H Plasma Lactic Acid Isaac 2.6 H* Calcium 8.3 L Troponin I Total Protein 6.0 L Albumin 3.3 L 01/11/19 01/11/19 03:54 04:15 WBC RBC Hgb Hct RDW Neutrophils # (Manual) Metamyelocytes # (Man) Nucleated RBCs ABG pH 7.47 H ABG pCO2 46 H ABG pO2 56 L* ABG HCO3 34 H ABG Total CO2 35 H ABG O2 Saturation 88.4 L Carbon Dioxide Glucose Plasma Lactic Acid Isaac Calcium Troponin I 0.166 H* Total Protein Albumin - Diagnostic Findings Chest x-ray: image reviewed Assessment and Plan Plan: 1 bilateral lower lobe pulmonary infiltrate, consider pneumonia especially the patient has had recurrent bouts of pneumonias in the past including infection with ESBL producing Klebsiella pneumoniae for which she has completed course of IV Invanz on outpatient basis. 2 acute febrile illness, consider pneumonia 3 acute on chronic hypoxic respiratory failure currently on 60 of oxygen nasal cannula 4 altered mental status, consider secondary to underlying metabolic encephalopathy 5 mild lactic acidosis, improved 6 troponin leak 7 chronic COPD with chronic hypoxic respiratory failure maintain oxygen at 4 L per minute is a cannula, the patient's based on FEV1 is 1.59 L which is 40% of predicted 8 history approximately atrial fibrillation rate is controlled for now on long- term antibiotic ventilation with Eliquis 9 history of CVA 10 history of hypertension 11 history of chronic diastolic heart failure which is well compensated for now 12 chronic anemia 13 fall with trauma to the ankle without any fracture and a Doppler of the lower extremities was negative 14 previous history of CVA/TIA 15 osteoarthritis 16 BPH 17 hiatal hernia 18 irritable bowel syndrome 19 coronary artery disease 20 [id number] smoking history quit in May 2018 Plan Continue cefepime vancomycin. Sputum Gram stain and culture. Blood culture. IV fluids. Bronchodilators. Resume outpatient medications. CAT scan of the chest regarding ongoing and recurrent pneumonias. Monitor mental status. We'll continue to follow.
[2019-01-11] MEDS: TAMSULOSIN 0.4 MG CAP.ER.24H PO SCH (22:23)
[2019-01-11] MEDS: VANCOMYCIN 1,500 MG in SODIUM CHLORIDE 0.9% 250 ML IVPB SCH (22:23)
[2019-01-11] MEDS: ATORVASTATIN 80 MG TAB PO SCH (22:23)
--- NOTE | 2019-01-11 22:45 | CT ---
EXAM: CT Chest With Intravenous Contrast CLINICAL HISTORY: ITS.REASON CT Reason: history of recurent pneumonia TECHNIQUE: Axial computed tomography images of the chest with intravenous contrast. CTDI is 17.1 mGy and DLP is 717.1 mGy-cm. This CT exam was performed using one or more of the following dose reduction techniques: automated exposure control, adjustment of the mA and/or kV according to patient size, and/or use of iterative reconstruction technique. COMPARISON: CT chest dated 11/22/2018. FINDINGS: Lungs: Masslike consolidation in the left upper lobe along the major fissure (series 204 image 21). Bilateral dependent atelectasis. Pleural space: Unremarkable. No pneumothorax. No significant effusion. Heart: Unremarkable. No cardiomegaly. No significant pericardial effusion. Bones/joints: Degenerative changes seen throughout the thoracic spine. No acute fracture. No dislocation. Soft tissues: Unremarkable. Vasculature: Coronary artery atherosclerotic calcifications. Atherosclerosis throughout the thoracic aorta. No thoracic aortic aneurysm. Lymph nodes: Bulky mediastinal and left hilar lymphadenopathy which results in narrowing of left pulmonary arteries as well as the left bronchus. There does appear to be mild right hilar lymphadenopathy. Adrenals: Nodular lesion in the left adrenal gland measuring up to 1.1 cm is indeterminate but unchanged compared to prior CT abdomen and pelvis from 12/20/2018. IMPRESSION: 1. Masslike consolidation in the left upper lobe along the major fissure measuring up to 1.8 cm (series 204 image 21). This is worrisome for malignancy. Consider tissue sampling versus PET/CT. 2. Bulky mediastinal and left hilar lymphadenopathy which results in narrowing of left pulmonary arteries as well as the left bronchus. There does appear to be mild right hilar lymphadenopathy. This is worrisome for reinaldo metastasis. Consider evaluation with PET/CT. 3. Bilateral dependent atelectasis. Superimposed multifocal pneumonia or aspiration could have a similar appearance, particularly given the luminal narrowing of the left bronchus with apparent internal fluid potentially representing postobstructive pneumonia. 4. Nodular lesion in the left adrenal gland measuring up to 1.1 cm is indeterminate but unchanged compared to prior CT abdomen and pelvis from 12/20/2018. Adrenal metastasis is not entirely excluded. Consider evaluation with PET/CT. <MYCVCSECTION> Critical Value Communications 01/11/19 22:56 Verify Receipt Verified receipt with 3 [facility]en, given to Nurse Lea on 01/11 22:56 (-04:00)
--- NOTE | 2019-01-11 23:02 | XR ---
PROCEDURE: XR ankle limited LT - 1V DATE AND TIME: 01/11/2019 6:48 PM CLINICAL INDICATION: PHH; obliquie view please, DX: pain TECHNIQUE: AP oblique view COMPARISON: None FINDINGS: There is a vertically oriented linear lucency across the distal fibula, at the level of the mortise. The finding has the appearance of nondisplaced fibular fracture on this single view. The mortise is intact. IMPRESSION: Nondisplaced distal fibular fracture.
[2019-01-12] MEDS: CEFEPIME 1 GM in SODIUM CHLORIDE 0.9% 50 ML IVPB SCH ×2 (02:00→09:25)
[2019-01-12] MEDS: PANTOPRAZOLE 40 MG TABLET PO SCH (06:24)
[2019-01-12] MEDS: DILTIAZEM ORAL 60 MG TAB PO SCH ×4 (06:24→23:43)
[2019-01-12] MEDS: HYDROcodone/APAP 10-325MG 1 EACH TAB PO PRN ×3 (06:27→23:42)
[2019-01-12 08:06] LABS: Anisocytosis Slight; HCT 25.2 % (39.0-53.0); HGB 7.8 gm/dL (13.0-17.5); Hypochromasia Moderate; MCHC 30.8 g/dL (31.0-37.0); MCV 100.6 fL (80.0-100.0); Macrocytosis Moderate; Mean Platelet Volume 6.9; Platelet Count 277 k/uL (150-450); RDW 18.1 % (11.5-15.5); WBC 10.3 k/uL (3.8-10.6)
[2019-01-12] MEDS: IPRATROPIUM-ALBUTEROL 3 ML NEB INHALATION SCH ×4 (08:08→20:55)
[2019-01-12] MEDS: SYMBICORT 160-4.5 MCG INHALER INHALATION SCH ×2 (08:08→20:55)
[2019-01-12 08:35] LABS: Magnesium 1.8 mg/dL (1.6-2.3); Potassium 3.6 mmol/L (3.5-5.1)
--- NOTE | 2019-01-12 09:01 | XR ---
EXAMINATION TYPE: XR chest 1V portable DATE OF EXAM: 01/12/2019 COMPARISON: 01/11/2019 HISTORY: Pneumonia. Follow-up exam. Shortness of breath. TECHNIQUE: Single frontal view of the chest is obtained. FINDINGS: There is improved aeration of the right lung however there remains linear left perihilar a nd left lower lobe airspace disease. There is a somewhat nodular density in the left midlung measurin g 1.3 cm. Cardiomediastinal silhouette is stable and nonenlarged. No pneumothorax or pleural effusion . Mild multilevel degenerative changes of the spine. IMPRESSION: 1. Resolution of the previously seen right-sided airspace disease with residual left interstitial pne umonitis. 2. 1.3 cm nodular density is seen. Follow-up to resolution is recommended. If this does not resolve a fter resolution the pneumonitis CT would be recommended.
[2019-01-12] MEDS: predniSONE 20 MG TAB PO SCH (09:24)
[2019-01-12] MEDS: APIXABAN 5 MG TAB PO SCH (09:24)
[2019-01-12] MEDS: ASPIRIN 81 MG PO SCH (09:24)
[2019-01-12] MEDS: METOPROLOL TARTRATE 50 MG TAB PO SCH ×2 (09:24→21:18)
[2019-01-12] MEDS: DIGOXIN 250 MCG TAB PO SCH (09:24)
[2019-01-12] MEDS ORDERED: POTASSIUM CHLORIDE ER 20 MEQ TAB.ER PO STA (10:26)
--- NOTE | 2019-01-12 13:28 | P.PN ---
Subjective Progress Note Date: 01/12/19 Principal diagnosis: Acute bilateral lower lobe infiltrate consider probable pneumonia with recent infection of ESBL producing Klebsiella pneumoniae. This is a 68-year-old male patient is well-known to me from previous hospitalizations the patient was last seen in the hospital on 12/21/2018 for COPD and chronic hypoxic respiratory failure. The patient also known to have approximately atrial fibrillation. The patient has had several hospitalization. He was discharged from the hospital on 12/24/2018. During his early hospitalization the patient was found to have ESBL producing capsula pneumoniae and sravan bacterium and the patient was discharged home on IV Invanz. The patient was seen by infectious disease. The patient is sedated infusion in a [facility] facility. He was discharged on 40 of oxygen nasal cannula. His COPD is improved and his overall condition was also improving. The patient came in yesterday to the emergency department as the patient was discharged approximately 4 days ago from the skilled facility back home. He did well for on today's and following that his condition got worse and the patient started feeling poor and his oral intake dropped and he had decreased energy level. He had increased sleepiness. The patient woke up this morning and slipped off his bed and he had his knee. He was quite warm to touch. No rep orted nausea vomiting diarrhea or aspiration. The patient came into the emergency department and the patient was found to have some degree of confusion and altered mentation. Unable to provide any history. In the emergency department the patient is a temperature 103 and he was admitted for an und erlying pneumonia. The chest x-ray also showed some bilateral infiltrates in lung bases. His white cell count was 11.4. Hemoglobin was at 8.8. The blood gases was done and showed a pH of 7.47 with a pCO2 of 46 and pO2 of 56 with an FiO2 of 40%. His troponin was at 0.16. Lactic acid level was at 2.6 and dropped down to 1.1. Creatinine was normal at 1.06. UA was negative. X-ray of the ankle showed no evidence of any fracture. Doppler of the lower extremity was also done that showed no evidence of any DVT in the lower extremity. The patient is currently on a combination of cefepime and vancomycin. He is on a prednisone 20 mg as part of his burst taper. Outpatient medications of been ordered resume. He is also on DuoNeb nebulized treatments around the clock. He is on 6 L of oxygen by nasal cannula with a pulse ox of 94%. The patient is seen today 01/12/2019 in follow-up on the selective care unit. He is currently sitting up in bed. More awake and alert today as compared to yesterday. Denies any altered mental status or confusion. He still somewhat unclear to the happenings of yesterday. He currently denies any worsening shortness of breath. He has a loose nonproductive cough. Remains on 6 L high flow nasal cannula and maintaining O2 saturations in the 90s. He is afebrile. Hemodynamically stable. Computed tomography scan of the chest yesterday revealed a masslike consolidation in the left upper lobe along the major fissure measuring up to 1.8 cm. There is some bulky mediastinal and left hilar lymphadenopathy. His chest x-ray revealed resolution of the previously seen right sided airspace disease with residual left interstitial pneumonitis. 1.3 cm nodule density is seen. The plan is for bronchoscopy with BAL and possible biopsies tomorrow. Objective - Vital Signs Vital signs: Vital Signs Temp 97.6 F 01/12/19 08:45 Pulse 76 01/12/19 12:17 Resp 19 01/12/19 08:45 BP 109/52 01/12/19 08:45 Pulse Ox 94 L 01/12/19 08:45 Intake & Output 01/11/19 01/12/19 01/12/19 18:59 06:59 18:59 Intake Total 240 Output Total 550 Balance -550 240 Weight 98 kg Intake: Oral 240 Output: Urine 550 Other: Voiding Method Diaper Urinal # Voids 1 1 1 # Bowel Movements 1 1 - Exam GENERAL EXAM: 68-year-old male patient, awake and alert, the 6 L high flow nasal cannula with a pulse ox of 95%, comfortable in no apparent distress. HEAD: Normocephalic/atraumatic. EYES: Normal reaction of pupils, equal size. Conjunctiva pink, sclera white. NOSE: Clear with pink turbinates. THROAT: No erythema or exudates. NECK: No masses, no JVD, no thyroid enlargement, no adenopathy. CHEST: No chest wall deformity. Symmetrical expansion. LUNGS: Diminished breath sounds, with the expiratory wheezes and rhonchi at the bases, more so on the left CVS: Regular rate and rhythm, normal S1 and S2, no gallops, no murmurs, no rubs ABDOMEN: Soft, nontender. No hepatosplenomegaly, normal bowel sounds, no guarding or rigidity. EXTREMITIES: No clubbing, no edema, no cyanosis, 2+ pulses and upper and lower extremities. MUSCULOSKELETAL: Muscle strength and tone normal. SPINE: No scoliosis or deformity SKIN: No rashes CENTRAL NERVOUS SYSTEM: No focal deficits, tone is normal in all 4 extremities. Poor historian. PSYCHIATRIC: Unable to do due to the above-mentioned altered mentation - Labs CBC & Chem 7: 01/12/19 07:19 01/12/19 07:19 Labs: Abnormal Lab Results - Last 24 Hours (Table) 01/12/19 01/12/19 01/12/19 Range/Units 07: 07: 07:19 RBC 2.50 L (4.30-5.90) m/uL Hgb 7.8 L (13.0-17.5) gm/dL Hct 25.2 L (39.0-53.0) % MCV 100.6 H (80.0-100.0) fL MCHC 30.8 L (31.0-37.0) g/dL RDW 18.1 H (11.5-15.5) % Carbon Dioxide 31 H (22-30) mmol/L Glucose 106 H (74-99) mg/dL Calcium 8.0 L (8.4-10.2) mg/dL Troponin I 0.095 H* (0.000-0.034) ng/mL C. difficile (EIA) Intrp (Negative) 01/12/19 Range/Units 11:24 RBC (4.30-5.90) m/uL Hgb (13.0-17.5) gm/dL Hct (39.0-53.0) % MCV (80.0-100.0) fL MCHC (31.0-37.0) g/dL RDW (11.5-15.5) % Carbon Dioxide (22-30) mmol/L Glucose (74-99) mg/dL Calcium (8.4-10.2) mg/dL Troponin I (0.000-0.034) ng/mL C. difficile (EIA) Intrp Positive A (Negative) Microbiology - Last 24 Hours (Table) 01/11/19 07:28 Urine Culture - Final Urine,Voided 01/11/19 06:45 Blood Culture - Preliminary Blood No Growth after 24 hours 01/11/19 03:54 Blood Culture - Preliminary Blood No Growth after 24 hours Assessment and Plan Assessment: Impression: 1 bilateral lower lobe pulmonary infiltrate, consider pneumonia especially the patient has had recurrent bouts of pneumonias in the past including infection with ESBL producing Klebsiella pneumoniae for which she has completed course of IV Invanz on outpatient basis. 2 acute febrile illness, consider pneumonia 3 acute on chronic hypoxic respiratory failure currently on 60 of oxygen nasal cannula 4 altered mental status, consider secondary to underlying metabolic encephalopathy 5 mild lactic acidosis, improved 6 troponin leak 7 chronic COPD with chronic hypoxic respiratory failure maintain oxygen at 4 L per minute is a cannula, the patient's based on FEV1 is 1.59 L which is 40% of predicted 8 history approximately atrial fibrillation rate is controlled for now on long- term antibiotic ventilation with Eliquis 9 history of CVA 10 history of hypertension 11 history of chronic diastolic heart failure which is well compensated for now 12 chronic anemia 13 fall with trauma to the ankle without any fracture and a Doppler of the lower extremities was negative 14 previous history of CVA/TIA 15 osteoarthritis 16 BPH 17 hiatal hernia 18 irritable bowel syndrome 19 coronary artery disease 20 [id number] smoking history quit in May 2018 Plan The patient was seen and evaluated by Dr. Santiago. CAT scan reviewed. We'll go ahead and plan for bronchoscopy with BAL and possible biopsies tomorrow. Continue antibiotics and bronchodilators. We'll continue to follow. I, the cosigning physician, performed a history & physical examination of the patient. Lungs sounds with few scattered rhonchi. Maintaining good O2 saturations in the 90s on 6 L high flow nasal cannula. I discussed the assessment and plan of care with my nurse practitioner, Radha Valenzuela. I attest to the above note as dictated by her.
[2019-01-12] MEDS: VANCOMYCIN 1,500 MG in SODIUM CHLORIDE 0.9% 250 ML IVPB SCH (14:37)
--- NOTE | 2019-01-12 15:08 | P.CRDCN ---
History of Present Illness Consult date: 01/12/19 History of present illness: This is a 68-year-old gentleman with history of chronic obstructive pulmonary disease and paroxysmal atrial fibrillation who has been in and out of hospital on many occasions. Patient was recently discharged home on 12/24/2018 after treating for pneumonia and exacerbation of COPD. Patient is brought in back to the hospital with complaints of not feeling well with good appetite, increasing shortness of breath and also on history of fall from the bed. Patient was febrile on admission. A chest x-ray showed possible pneumonia. Patient also had a computed tomography scan of the chest which she size to possible malignancy. Patient is being planned to have rhonchi auscultated tomorrow. We're asked to see the patient because of abnormal troponin values. Patient has had abdominal troponin leak in the past. Most probably this is related to hypoxia and sepsis. Doesn't appear to be primary cardiac issue. His creatinine is in the range of 1.06. A she has lactic acidosis on admission. Patient appears to be developed and doesn't appear to be in acute distress, on examination today. He is unable to give any detailed history. Most of the information is From the chart. I'm not suggesting any further cardiac workup at this time. He patient has any further cardiac issues, we will reevaluate the patient. 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 History of Any Multi-Drug Resistant Organisms: ESBL Date of last positivie culture/infection: 12/23/18 MDRO Source:: Sputum MDRO ESBL Past Surgical History: Adenoidectomy, Back Surgery, Heart Catheterization, Hernia Repair, Joint Replacement, Orthopedic Surgery, Tonsillectomy Additional Past Surgical History / Comment(s): L knee replacement, back surgery x3-failed fusion and 2 rods in lower back, L/R cataract surgery, bilat. rib removal (cervical), carpal tunnel R wrist, colonoscopy, L elbow surgery, abdominal hernia repair, 3 R inguinal hernia repairs, L inguinal hernia repair, rectal cystectomy.pain pump(ms) implanted removed 11/06/2018 Past Anesthesia/Blood Transfusion Reactions: Previous Problems w/ Anesthesia Additional Past Anesthesia/Blood Transfusion Reaction / Comment(s): With first surgery became belligerent when waking up. Past Psychological History: No Psychological Hx Reported Smoking Status: Former smoker Past Alcohol Use History: None Reported, Occasional Past Drug Use History: None Reported - Past Family History Mother Family Medical History: No Reported History Additional Family Medical History / Comment(s): Mother was healthy and lived to be 88 or 89yrs old. Father Family Medical History: Cancer Additional Family Medical History / Comment(s): Father of lung cancer in his early 70's. Medications and Allergies Home Medications Medication Instructions Recorded Confirmed Type Aspirin 81 mg PO DAILY 11/21/18 01/11/19 History Atorvastatin [Lipitor] 80 mg PO HS 11/21/18 01/11/19 History Esomeprazole Magnesium [NexIUM] 40 mg PO DAILY 11/21/18 01/11/19 History Gabapentin [Neurontin] 400 mg PO QID #120 cap 11/27/18 01/11/19 Rx HYDROcodone/APAP 10-325MG [[place] 1 tab PO Q6H PRN #30 tab 11/27/18 01/11/19 Rx 10-325] Cyclobenzaprine [Flexeril] 10 mg PO QID 11/30/18 01/11/19 History Apixaban [Eliquis] 5 mg PO BID #20 tab 12/03/18 01/11/19 Rx Digoxin 250 mcg PO DAILY #10 tablet 12/03/18 01/11/19 Rx Diltiazem HCl 90 mg PO Q6H #40 tablet 12/03/18 01/11/19 Rx Potassium Chloride ER [K-Dur 20] 20 meq PO BID #20 tab.er.prt 12/03/18 01/11/19 Rx Tamsulosin HCl [Flomax] 0.4 mg PO HS #20 capsule 12/03/18 01/11/19 Rx Tiotropium 18 Mcg/Puff [Spiriva] 1 puff INHALATION RT-DAILY 12/06/18 01/11/19 History Metoprolol Tartrate [Lopressor] 100 mg PO TID 01/11/19 01/11/19 History predniSONE 20 mg PO DAILY 01/11/19 01/11/19 History Allergies Allergy/AdvReac Type Severity Reaction Status Date / Time montelukast sodium AdvReac Itching Verified 01/11/19 09:38 [From [facility]] Physical Exam Vitals: Vital Signs Temp Pulse Pulse Resp BP Pulse Ox 01/12/19 12:45 96.6 F L 85 20 130/58 92 L 01/12/19 12:17 76 01/12/19 12:03 72 01/12/19 08:45 97.6 F 76 19 109/52 94 L 01/12/19 08:24 80 01/12/19 08:09 80 01/12/19 04:00 98.1 F 75 19 125/61 96 01/12/19 00:00 98.3 F 78 18 119/58 93 L 01/11/19 20:45 74 01/11/19 20:37 76 14 01/11/19 20:00 98.6 F 77 20 126/62 91 L 01/11/19 16:11 94 L 01/11/19 16:00 98.3 F 77 20 115/51 92 L Intake and Output 01/12/19 01/12/19 01/12/19 06:59 14:59 22:59 Intake Total 650 Output Total 550 Balance -550 650 Intake: Intake, IV Titration 50 Amount Cefepime 1 gm In Sodium 50 Chloride 0.9% 50 ml @ 100 mls/hr IVPB Q12HR [facility] Rx #:[id number] Oral 600 Output: Urine 550 Other: Voiding Method Urinal # Voids 1 1 # Bowel Movements 1 1 Weight 98 kg GENERAL EXAM: Patient is alert and oriented and doesn't appear to be in any acut e distress HEENT: Normocephalic. Normal reaction of pupils, equal size, normal range of extraocular motion. No erythema or exudates in the throat. NECK: No masses, no nuchal rigidity. CHEST: No chest wall deformity. LUNGS: Expiratory wheezing and rhonchi HEART: S1 and S2 normal with no audible mumurs or gallops. Regular rhythm, femorals equal on both sides.. ABDOMEN: No hepatosplenomegaly, normal bowel sounds, no guarding or rigidity. SKIN: No rashes CENTRAL NERVOUS SYSTEM: No focal deficits. EXTREMITIES: No cyanosis, clubbing or edema. Results 01/12/19 07:19 01/12/19 07:19 Cardiac Enzymes 01/12/19 Range/Units 07:19 Troponin I 0.095 H* (0.000-0.034) ng/mL CBC 01/12/19 Range/Units 07:19 WBC 10.3 (3.8-10.6) k/uL RBC 2.50 L (4.30-5.90) m/uL Hgb 7.8 L (13.0-17.5) gm/dL Hct 25.2 L (39.0-53.0) % Plt Count 277 (150-450) k/uL Comprehensive Metabolic Panel 01/12/19 Range/Units 07:19 Sodium 141 (137-145) mmol/L Potassium 3.6 (3.5-5.1) mmol/L Chloride 106 (98-107) mmol/L Carbon Dioxide 31 H (22-30) mmol/L BUN 15 (9-20) mg/dL Creatinine 1.05 (0.66-1.25) mg/dL Glucose 106 H (74-99) mg/dL Calcium 8.0 L (8.4-10.2) mg/dL Current Medications Generic Name Dose Route Start Last Admin Trade Name Freq PRN Reason Stop Dose Admin Acetaminophen 650 mg 01/11/19 11:53 Tylenol Tab PO Q6HR PRN Fever and/ or MILD Pain Hydrocodone Bitart/Acetaminophen 1 each 01/11/19 15:59 01/12/19 14:39 [place] 10 PO 1 each Q6H PRN Administration Pain Albuterol/Ipratropium 3 ml 01/11/19 07:01 Duoneb 0.5 Mg-3 Mg/3 Ml Soln INHALATION RT-QID PRN Shortness Of Breath Albuterol/Ipratropium 3 ml 01/11/19 12:00 01/12/19 12:03 Duoneb 0.5 Mg-3 Mg/3 Ml Soln INHALATION 3 ml RT-QID PRIYANKA Administration Apixaban 5 mg 01/11/19 09:00 01/12/19 09:24 Eliquis PO 5 mg BID PRIYANKA Administration Aspirin 81 mg 01/11/19 09:00 01/12/19 09:24 Aspirin PO 81 mg DAILY PRIYANKA Administration Atorvastatin Calcium 80 mg 01/11/19 21:00 01/11/19 22:23 Lipitor PO 80 mg HS PRIYANKA Administration Budesonide/Formoterol Fumarate 2 puff 01/11/19 08:00 01/12/19 08:08 Symbicort 160-4.5 Mcg Inhaler INHALATION 2 puff RT-BID PRIYANKA Administration Romero Syrup 2.5 ml 01/12/19 18:00 Romero Syrup PO Q6HR PRIYANKA Digoxin 250 mcg 01/11/19 09:00 01/12/19 09:24 Lanoxin PO 250 mcg DAILY PRIYANKA Administration Diltiazem HCl 60 mg 01/11/19 18:00 01/12/19 13:07 Cardizem Oral PO 60 mg Q6HR PRIYANKA Administration Vancomycin HCl 1,500 mg/ 250 mls @ 125 mls/hr 01/11/19 22:00 01/12/19 14:37 Sodium Chloride IVPB 125 mls/hr Q16H PRIYANKA Administration Cefepime HCl 1 gm/ Sodium 50 mls @ 100 mls/hr 01/11/19 21:00 01/12/19 09:25 Chloride IVPB 100 mls/hr Q12HR PRIYANKA Administration Metoprolol Tartrate 100 mg 01/11/19 21:00 01/12/19 09:24 Lopressor PO 100 mg BID PRIYANKA Administration Miscellaneous Information 1 each 01/11/19 20:50 Rx Info: Iv Contrast Was Given MISCELLANE 01/13/19 20:51 DAILY PRN Per Protocol Naloxone HCl 0.2 mg 01/11/19 05:34 Narcan IV Q2M PRN Opioid Reversal Pantoprazole Sodium 40 mg 01/11/19 09:00 01/12/19 06:24 Protonix PO 40 mg [id number] PRIYANKA Administration Prednisone 20 mg 01/11/19 12:00 01/12/19 09:24 PO 20 mg DAILY PRIYANKA Administration Tamsulosin HCl 0.4 mg 01/11/19 21:00 01/11/19 22:23 Flomax PO 0.4 mg HS PRIYANKA Administration Vancomycin HCl 125 mg 01/12/19 18:00 Vancomycin Oral Solution PO Q6HR PRIYANKA Intake and Output 01/12/19 01/12/19 01/12/19 06:59 14:59 22:59 Intake Total 650 Output Total 550 Balance -550 650 Intake: Intake, IV Titration 50 Amount Cefepime 1 gm In Sodium 50 Chloride 0.9% 50 ml @ 100 mls/hr IVPB Q12HR PRIYANKA Rx #:[id number] Oral 600 Output: Urine 550 Other: Voiding Method Urinal # Voids 1 1 # Bowel Movements 1 1 Weight 98 kg 01/12/19 07:19 01/12/19 07:19 EKG Interpretations (text) Sinus rhythm without any acute ST-T changes Assessment and Plan (1) Acute exacerbation of chronic obstructive airways disease Current Visit: Yes Status: Acute Code(s): J44.1 - CHRONIC OBSTRUCTIVE PULMONARY DISEASE W (ACUTE) EXACERBATION SNOMED Code(s): 650296247 (2) Elevated troponin Current Visit: No Status: Acute Code(s): R74.8 - ABNORMAL LEVELS OF OTHER SERUM ENZYMES SNOMED Code(s): 293137065 (3) Essential hypertension Current Visit: No Status: Acute Code(s): I10 - ESSENTIAL (PRIMARY) HYPERTENSION SNOMED Code(s): 07395389 (4) Pneumonia Current Visit: No Status: Acute Code(s): J18.9 - PNEUMONIA, UNSPECIFIED ORGANISM SNOMED Code(s): 930020990 (5) Paroxysmal atrial fibrillation Current Visit: Yes Status: Acute Code(s): I48.0 - PAROXYSMAL ATRIAL FIBRILLATION SNOMED Code(s): 772323036 Plan: This patient is in sinus rhythm. Patient's troponin leak most probably secondary secondary to hypoxia and pneumonia related. Patient to be continued. An antibiotic and bronchodilators. Computed tomography scan a size to possible malignancy. Patient is scheduled to have bronchoscopy tomorrow. We'll be following patient as needed
--- NOTE | 2019-01-12 16:28 | P.PN ---
Subjective Progress Note Date: 01/12/19 (Delayed charting seen at 10:30) Principal diagnosis: Altered mentation Patient is a 68-year-old male with a history of recurrent pneumonia as last being Klebsiella ESBL on 12/21/18, paroxysmal atrial fibrillation on eliquis, chronic hypoxic respiratory failure secondary to COPD on 4 L at home, and chronic diastolic congestive heart failure who presented to the emergency department with altered mentation. In the ER he underwent an extensive evaluation. He was found have a chest x-ray with worsening opacities, elevated white blood cell count, and a fever of 100.3. There is concern for recurrent pneumonia and he was started on Vanco and Zosyn. Arrangements were made for admission. Found have elevated lactic acid and elevated troponin. It was felt that his altered mentation was secondary to toxic metabolic encephalopathy. After arrival to the floor he started having left ankle pain. X-rays were completed which showed distal fibular fracture. He was seen by pulmonary who recommended a CT of the chest which demonstrated pneumonia versus mass like lesi on and plan is for bronchoscopy on 12. He was seen by cardiology who felt that his troponin elevation was secondary to his chronic hypoxemia. On trend he has chronically elevated troponins. He also was noted to be having diarrhea and C. diff came back positive. Oral vancomycin was started. Infectious disease was consulted with his recent history of ESBL Klebsiella. Patient seen and examined at bedside. He was informed of the multiple mass like densities in his lungs that could be related to pneumonia versus tumor. He was also informed of the fracture of his left ankle. He states that he was standing there and felt his left ankle and knee give out several days ago. He then s tarted having acute pain. He denies any chest pain, nausea, or vomiting. Objective - Vital Signs Vital signs: Vital Signs Temp 96.6 F L 01/12/19 12:45 Pulse 85 01/12/19 12:45 Resp 20 01/12/19 12:45 BP 130/58 01/12/19 12:45 Pulse Ox 92 L 01/12/19 12:45 Intake & Output 01/11/19 01/12/19 01/12/19 18:59 06:59 18:59 Intake Total 650 Output Total 550 Balance -550 650 Weight 98 kg Intake: Intake, IV Titration 50 Amount Cefepime 1 gm In Sodium 50 Chloride 0.9% 50 ml @ 100 mls/hr IVPB Q12HR [facility] Rx #:[id number] Oral 600 Output: Urine 550 Other: Voiding Method Diaper Urinal # Voids 1 1 1 # Bowel Movements 1 1 - Exam General: ill-Appearing, no distress, appears older than stated age Derm: warm, dry Head: atraumatic, normocephalic, symmetric Eyes: EOMI, no lid lag, anicteric sclera Mouth: no lip lesion, mucus membranes moist Cardiovascular: S1S2 reg, no murmur, positive posterior tibial pulse bilateral, Lungs: rhonich bilateral, no accessory muscle use Abdominal: soft, nontender to palpation, no guarding, no appreciable organomegaly Ext: no gross muscle atrophy, trace edema left ankle, no contractures Neuro: CN II-XI grossly intact, no focal neuro deficits Psych: Alert, oriented, appropriate affect - Labs CBC & Chem 7: 01/12/19 07:19 01/12/19 07:19 Labs: Abnormal Lab Results - Last 24 Hours (Table) 01/12/19 01/12/19 01/12/19 Range/Units 07:19 07:19 07:19 RBC 2.50 L (4.30-5.90) m/uL Hgb 7.8 L (13.0-17.5) gm/dL Hct 25.2 L (39.0-53.0) % MCV 100.6 H (80.0-100.0) fL MCHC 30.8 L (31.0-37.0) g/dL RDW 18.1 H (11.5-15.5) % Carbon Dioxide 31 H (22-30) mmol/L Glucose 106 H (74-99) mg/dL Calcium 8.0 L (8.4-10.2) mg/dL Troponin I 0.095 H* (0.000-0.034) ng/mL C. difficile (EIA) Intrp (Negative) 01/12/19 Range/Units 11:24 RBC (4.30-5.90) m/uL Hgb (13.0-17.5) gm/dL Hct (39.0-53.0) % MCV (80.0-100.0) fL MCHC (31.0-37.0) g/dL RDW (11.5-15.5) % Carbon Dioxide (22-30) mmol/L Glucose (74-99) mg/dL Calcium (8.4-10.2) mg/dL Troponin I (0.000-0.034) ng/mL C. difficile (EIA) Intrp Positive A (Negative) Microbiology - Last 24 Hours (Table) 01/11/19 07:28 Urine Culture - Final Urine,Voided 01/11/19 06:45 Blood Culture - Preliminary Blood No Growth after 24 hours 01/11/19 03:54 Blood Culture - Preliminary Blood No Growth after 24 hours Assessment and Plan Assessment: Bilateral pulmonary infiltrates, possible multidrug resistant pneumonia with h istory of recent ESBL -Continue with the Vanco and cefepime, await infectious disease recommendations -Multiple masslike consolidations on CT chest. Plan is for bronchoscopy on 01/13/19. In light of patient's confusion on admission would consider MRI brain if bronchoscopy revealed any masslike lesions. -Pulmonary hygiene -Sputum culture -Bronchodilators -Pulmonary recommendations appreciated, case discussed with Radha Valenzuela NUCLEAR OFFICER - no signs of adrenal insufficiency C. diff -Oral vancomycin 125 mg every 6 hours -Contact precautions -ID recommendations Left distal fibular fracture -Orthopedic consultation -Walking boot ordered -Pain control Toxic metabolic encephalopathy, Improved -Limit pain medications as able -Off gabapentin, flexeril -Consider MRI brain if bronchoscopy reveals masslike lesion Chronic troponin elevation -Cardiology recommendations appreciated -No further investigation plan at this time Acute on chronic hypoxic respiratory failure -Wean O2 as able -Treatment as above COPD without exacerbation -Continue with bronchodilators -Pulmonary hygiene -Pulmonary recommendations appreciated Compensated diastolic congestive heart failure with ejection fraction 55-60% - continue with metoprolol - no on ACEI and will not start - P. A fib, on eliquis - metoprolol and diltiazem decreased due to hypotension - digoxin - follow tele - cardio recs Chronic: Chronic Anemia Osteoarthritis Hypertension BPH Hiatal hernia Irritable bowel syndrome Coronary artery disease GERD HLD Lactic acidosis, improved DVT prophylaxis: eliquis Discussed with: Patient, nursing, pulmonary Anticipated discharge: 4-[address]: home A total of 45 minutes was spent on the care of this complex patient more than 50% of the time was spent in counseling and care coordination.
[2019-01-12] MEDS: VANCOMYCIN ORAL SOLUTION 250 MG/5 ML BOTTLE PO SCH ×2 (17:14→23:45)
[2019-01-12] MEDS: CHERRY FLAVOR 60 ML BOTTLE PO SCH ×2 (17:14→23:45)
[2019-01-12] MEDS: TAMSULOSIN 0.4 MG CAP.ER.24H PO SCH (21:17)
[2019-01-12] MEDS: ATORVASTATIN 80 MG TAB PO SCH (21:18)
--- NOTE | 2019-01-12 23:36 | P.CONS ---
History of Present Illness - Reason for Consult Consult date: 01/12/19 - Chief Complaint weakness SOB - History of Present Illness 68-year-old male that has a known history of COPD with chronic hypoxic respiratory failure underlying coronary artery disease with proximal atrial fibrillation and obesity. In the recent past he was hospitalized with respirat ory failure and pneumonia. He was discharged home about a week ago however the outpatient setting he started to fail. He increasing shortness of breath and cough increasing weakness and altered mental status. Also related he develop a fever because he was brought back in the hospital. Evaluation for evidence of ongoing pneumonia that had worsened because he was admitted. He again was stabilized improved and discharged home. He again feels ill He however has now developed significant diarrhea and is having difficulty with nutrition. He feels quite poorly overall. He is denying high-grade fevers or chills. His respiratory status is actually improved. He does not feel short of breath as he was. He is not having new cough or sputum production. Discomforts in his chest. He has some mild abdominal discomfort but is denying significant pain. Appetite somewhat poor but no nausea or emesis. No hematemesis melena or hematochezia. Review of Systems 68-year-old male presented feeling poorly with diarrhea and weakness HEENT:Denies headache or acute visual change. Denies sinus or mouth discomforts. Denies neck stiffness or pain. Denies significant oral cavity pain. Denies difficulty on swallowing. Lungs: Shortness of breath is improved, no new sputum production no hemoptysis. Cardiovascular: Denies chest pain at this time shortness of breath continues dyspnea on exertion continues does not have orthopnea or syncope Gastrointestinal: As per the HPI significant diarrhea loose without hematemesis motor bradykinesia Musculoskeletal: denies significant myalgias or arthralgias. No new joint swelling. Denies new back pain. Skin: Denies new rash or lesions. No new ulcers or wounds are related.. Neuro: Denies headache or visual change. Denies any new onset weakness or difficulty with ambulation. Denies falls or seizures. Psychiatric:Denies anxiety or depression. Endocrine: Significant fatigue did have weight gain now more stable Past Medical History Past Medical History: Coronary Artery Disease (CAD), Chest Pain / Angina, COPD, CVA/TIA, Eye Disorder, GERD/Reflux, Hyperlipidemia, Hypertension, Osteoarthritis (OA), Prostate Disorder Additional Past Medical History / Comment(s): BPH, 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 History of Any Multi-Drug Resistant Organisms: ESBL Year Discovered:: 12/23/18 MDRO Source:: Sputum MDRO ESBL Past Surgical History: Adenoidectomy, Back Surgery, Heart Catheterization, Hernia Repair, Joint Replacement, Orthopedic Surgery, Tonsillectomy Additional Past Surgical History / Comment(s): L knee replacement, back surgery x3-failed fusion and 2 rods in lower back, L/R cataract surgery, bilat. rib removal (cervical), carpal tunnel R wrist, colonoscopy, L elbow surgery, abdominal hernia repair, 3 R inguinal hernia repairs, L inguinal hernia repair, rectal cystectomy.pain pump(ms) implanted removed 11/06/2018 Past Anesthesia/Blood Transfusion Reactions: Previous Problems w/ Anesthesia Additional Past Anesthesia/Blood Transfusion Reaction / Comm: With first surgery became belligerent when waking up. Past Psychological History: No Psychological Hx Reported Additional Psychological History / Comment(s): Pt resides with his spouse. He uses a cane to ambulate. has nebulizer He drives. 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 Is no longer smoking. No animals in the home Smoking Status: Former smoker Past Alcohol Use History: None Reported, Occasional Past Drug Use History: None Reported - Past Family History Mother Family Medical History: No Reported History Additional Family Medical History / Comment(s): Mother was healthy and lived to be 88 or 89yrs old. Father Family Medical History: Cancer Additional Family Medical History / Comment(s): Father of lung cancer in his early 70's. Medications and Allergies Home Medications and Allergies Comment(s): Current Medications Acetaminophen (Tylenol Tab) 650 mg PO Q6HR PRN PRN Reason: Fever and/ or MILD Pain Hydrocodone Bitart/Acetaminophen ([place] 10) 1 each PO Q6H PRN PRN Reason: Pain Last Admin: 01/12/19 14:39 Dose: 1 each Documented by: Albuterol/Ipratropium (Duoneb 0.5 Mg-3 Mg/3 Ml Soln) 3 ml INHALATION RT-QID PRN PRN Reason: Shortness Of Breath Albuterol/Ipratropium (Duoneb 0.5 Mg-3 Mg/3 Ml Soln) 3 ml INHALATION RT-QID [facility] Last Admin: 01/12/19 20:55 Dose: 3 ml Documented by: Aspirin (Aspirin) 81 mg PO DAILY [facility] Last Admin: 01/12/19 09:24 Dose: 81 mg Documented by: Atorvastatin Calcium (Lipitor) 80 mg PO HS [facility] Last Admin: 01/12/19 21:18 Dose: 80 mg Documented by: Budesonide/Formoterol Fumarate (Symbicort 160-4.5 Mcg Inhaler) 2 puff INHA LATION RT-BID [facility] Last Admin: 01/12/19 20:55 Dose: 2 puff Documented by: Romero Syrup (Romero Syrup) 2.5 ml PO Q6HR [facility] Last Admin: 01/12/19 17:14 Dose: 2.5 ml Documented by: Digoxin (Lanoxin) 250 mcg PO DAILY [facility] Last Admin: 01/12/19 09:24 Dose: 250 mcg Documented by: Diltiazem HCl (Cardizem Oral) 60 mg PO Q6HR [facility] Last Admin: 01/12/19 17:13 Dose: 60 mg Documented by: Vancomycin HCl 1,500 mg/ (Sodium Chloride) 250 mls @ 125 mls/hr IVPB Q16H [facility] Last Admin: 01/12/19 14:37 Dose: 125 mls/hr Documented by: Metoprolol Tartrate (Lopressor) 100 mg PO BID [facility] Last Admin: 01/12/19 21:18 Dose: 100 mg Documented by: Miscellaneous Information (Rx Info: Iv Contrast Was Given) 1 each MISCELLANE DAILY PRN PRN Reason: Per Protocol Stop: 01/13/19 20:51 Naloxone HCl (Narcan) 0.2 mg IV Q2M PRN PRN Reason: Opioid Reversal Pantoprazole Sodium (Protonix) 40 mg PO AC-BRKFST [facility] Last Admin: 01/12/19 06:24 Dose: 40 mg Documented by: Prednisone () 20 mg PO DAILY [facility] Last Admin: 01/12/19 09:24 Dose: 20 mg Documented by: Tamsulosin HCl (Flomax) 0.4 mg PO HS [facility] Last Admin: 01/12/19 21:17 Dose: 0.4 mg Documented by: Vancomycin HCl (Vancomycin Oral Solution) 125 mg PO Q6HR [facility] Last Admin: 01/12/19 17:14 Dose: 125 mg Documented by: Home Medications Medication Instructions Recorded Confirmed Type Aspirin 81 mg PO DAILY 11/21/18 01/11/19 History Atorvastatin [Lipitor] 80 mg PO HS 11/21/18 01/11/19 History Esomeprazole Magnesium [NexIUM] 40 mg PO DAILY 11/21/18 01/11/19 History Gabapentin [Neurontin] 400 mg PO QID #120 cap 11/27/18 01/11/19 Rx HYDROcodone/APAP 10-325MG [[place] 1 tab PO Q6H PRN #30 tab 11/27/18 01/11/19 Rx 10-325] Cyclobenzaprine [Flexeril] 10 mg PO QID 11/30/18 01/11/19 History Apixaban [Eliquis] 5 mg PO BID #20 tab 12/03/18 01/11/19 Rx Digoxin 250 mcg PO DAILY #10 tablet 12/03/18 01/11/19 Rx Diltiazem HCl 90 mg PO Q6H #40 tablet 12/03/18 01/11/19 Rx Potassium Chloride ER [K-Dur 20] 20 meq PO BID #20 tab.er.prt 12/03/18 01/11/19 Rx Tamsulosin HCl [Flomax] 0.4 mg PO HS #20 capsule 12/03/18 01/11/19 Rx Tiotropium 18 Mcg/Puff [Spiriva] 1 puff INHALATION RT-DAILY 12/06/18 01/11/19 History Metoprolol Tartrate [Lopressor] 100 mg PO TID 01/11/19 01/11/19 History predniSONE 20 mg PO DAILY 01/11/19 01/11/19 History Allergies Allergy/AdvReac Type Severity Reaction Status Date / Time montelukast sodium AdvReac Itching Verified 01/11/19 09:38 [From [facility]] Physical Exam Vitals: Vital Signs Temp Pulse Pulse Resp BP Pulse Ox 01/12/19 21:09 78 01/12/19 20:57 72 01/12/19 20:00 97.7 F 78 20 132/60 94 L 01/12/19 17:01 78 01/12/19 16:51 78 01/12/19 16:20 97.2 F L 70 20 132/60 93 L 01/12/19 12:45 96.6 F L 85 20 130/58 92 L 01/12/19 12:17 76 01/12/19 12:03 72 01/12/19 08:45 97.6 F 76 19 109/52 94 L 01/12/19 08:24 80 01/12/19 08:09 80 01/12/19 04:00 98.1 F 75 19 125/61 96 01/12/19 00:00 98.3 F 78 18 119/58 93 L Intake and Output 01/12/19 01/12/19 01/13/19 14:59 22:59 06:59 Intake Total 650 240 Balance 650 240 Intake: Intake, IV Titration 50 Amount Cefepime 1 gm In Sodium 50 Chloride 0.9% 50 ml @ 100 mls/hr IVPB Q12HR [facility] Rx #:[id number] Oral 600 240 Other: Voiding Method Urinal # Voids 1 # Bowel Movements 1 5 68-year-old male who is less short of breath but relates he feels better HEENT: Anicteric conjunctiva are pink and moist nasal mucosa grossly intact without significant lesions, there is no thrush. Neck: The neck is supple without significant lymphadenopathy or thyromegaly. Lungs: There is symmetrical air entry, there are still significant crackles in the left base with localized egophony to the left base, right bases with crackles. Some expiratory wheezes are still heard. There was no dullness. Heart: Irregular positive S4. There is no significant murmur click or rub, PMI was nondisplaced. Abdomen: Obese, Positive bowel sounds soft and minimal tenderness especailly periumbilical without palpable masses or organomegaly. There was no guarding or rebound. Extremities: The upper extremities have excellent pulses they are symmetric, no significant petechiae or telangiectasia. No splinter hemorrhages were noted. Lower extremities evidence of chronic venous stasis chronic edema no open ulcers Neuro: Awake alert oriented to person place and time. There are no acute new gross focal sensory motor deficits. Results CBC & Chem 7: 01/12/19 07:19 01/12/19 07:19 Labs: Abnormal Lab Results - Last 24 Hours (Table) 01/12/19 01/12/19 01/12/19 Range/Units 07:19 07: 07:19 RBC 2.50 L (4.30-5.90) m/uL Hgb 7.8 L (13.0-17.5) gm/dL Hct 25.2 L (39.0-53.0) % MCV 100.6 H (80.0-100.0) fL MCHC 30.8 L (31.0-37.0) g/dL RDW 18.1 H (11.5-15.5) % Carbon Dioxide 31 H (22-30) mmol/L Glucose 106 H (74-99) mg/dL Calcium 8.0 L (8.4-10.2) mg/dL Troponin I 0.095 H* (0.000-0.034) ng/mL C. difficile (EIA) Intrp (Negative) 01/12/19 Range/Units 11:24 RBC (4.30-5.90) m/uL Hgb (13.0-17.5) gm/dL Hct (39.0-53.0) % MCV (80.0-100.0) fL MCHC (31.0-37.0) g/dL RDW (11.5-15.5) % Carbon Dioxide (22-30) mmol/L Glucose (74-99) mg/dL Calcium (8.4-10.2) mg/dL Troponin I (0.000-0.034) ng/mL C. difficile (EIA) Intrp Positive A (Negative) Microbiology - Last 24 Hours (Table) 01/11/19 07:28 Urine Culture - Final Urine,Voided 01/11/19 06:45 Blood Culture - Preliminary Blood No Growth after 24 hours 01/11/19 03:54 Blood Culture - Preliminary Blood No Growth after 24 hours Laboratory Results WBC 10.3 k/uL (3.8-10.6) 01/12/19 07:19 RBC 2.50 m/uL (4.30-5.90) L 01/12/19 07:19 Hgb 7.8 gm/dL (13.0-17.5) L 01/12/19 07:19 Hct 25.2 % (39.0-53.0) L 01/12/19 07:19 MCV 100.6 fL (80.0-100.0) H 01/12/19 07:19 MCH 31.0 pg (25.0-35.0) 01/12/19 07:19 MCHC 30.8 g/dL (31.0-37.0) L 01/12/19 07: RDW 18.1 % (11.5-15.5) H 01/12/19 07:19 Plt Count 277 k/uL (150-450) 01/12/19 07:19 Neutrophils % (Manual) 74 % 01/11/19 03:54 Lymphocytes % (Manual) 18 % 01/11/19 03:54 Monocytes % (Manual) 6 % 01/11/19 03:54 Eosinophils % (Manual) 3 % 01/11/19 03:54 Metamyelocytes % 1 % 01/11/19 03:54 Neutrophils # (Manual) 8.44 k/uL (1.3-7.7) H 01/11/19 03:54 Lymphocytes # (Manual) 2.05 k/uL (1.0-4.8) 01/11/19 03:54 Monocytes # (Manual) 0.68 k/uL (0-1.0) 01/11/19 03:54 Eosinophils # (Manual) 0.34 k/uL (0-0.7) 01/11/19 03:54 Metamyelocytes # (Man) 0.11 k/uL (0) H 01/11/19 03:54 Nucleated RBCs 2 /100 WBC (0-0) H 01/11/19 03:54 Manual Slide Review Performed 01/11/19 03:54 Polychromasia Present 01/11/19 03:54 Hypochromasia Moderate 01/12/19 07:19 Anisocytosis Slight 01/12/19 07:19 Macrocytosis Moderate 01/12/19 07:19 PT 10.0 sec (9.0-12.0) 01/11/19 03:54 INR 0.9 (<1.2) 01/11/19 03:54 APTT 22.4 sec (22.0-30.0) 01/11/19 03:54 Sample Site lbrac 01/11/19 04:15 ABG pH 7.47 (7.35-7.45) H 01/11/19 04:15 ABG pCO2 46 mmHg (35-45) H 01/11/19 04:15 ABG pO2 56 mmHg (83-108) L* 01/11/19 04:15 ABG HCO3 34 mmol/L (21-25) H 01/11/19 04:15 ABG Total CO2 35 mmol/L (19-24) H 01/11/19 04:15 ABG O2 Saturation 88.4 % (94-97) L 01/11/19 04:15 ABG Base Excess 9.7 mmol/L 01/11/19 04:15 Nico Test yes 01/11/19 04:15 FiO2 40 % 01/11/19 04:15 Sodium 141 mmol/L (137-145) 01/12/19 07:19 Potassium 3.6 mmol/L (3.5-5.1) 01/12/19 07:19 Chloride 106 mmol/L (98-107) 01/12/19 07:19 Carbon Dioxide 31 mmol/L (22-30) H 01/12/19 07:19 Anion Gap 4 mmol/L 01/12/19 07:19 BUN 15 mg/dL (9-20) 01/12/19 07:19 Creatinine 1.05 mg/dL (0.66-1.25) 01/12/19 07:19 Est GFR (CKD-EPI)AfAm 83 (>60 ml/min/1.73 sqM) 01/12/19 07:19 Est GFR (CKD-EPI)NonAf 72 (>60 ml/min/1.73 sqM) 01/12/19 07:19 Glucose 106 mg/dL (74-99) H 01/12/19 07:19 Lactic Ac Sepsis Rflx Y 01/11/19 04:40 Plasma Lactic Acid Isaac 1.1 mmol/L (0.7-2.0) 01/11/19 08:19 Calcium 8.0 mg/dL (8.4-10.2) L 01/12/19 07:19 Magnesium 1.8 mg/dL (1.6-2.3) 01/12/19 07:19 Total Bilirubin 0.9 mg/dL (0.2-1.3) 01/11/19 03:54 AST 53 U/L (17-59) 01/11/19 03:54 ALT 30 U/L (21-72) 01/11/19 03:54 Alkaline Phosphatase 71 U/L (38-126) 01/11/19 03:54 Troponin I 0.095 ng/mL (0.000-0.034) H* 01/12/19 07:19 Total Protein 6.0 g/dL (6.3-8.2) L 01/11/19 03:54 Albumin 3.3 g/dL (3.5-5.0) L 01/11/19 03:54 Urine Color Light Yellow 01/11/19 07:28 Urine Appearance Clear (Clear) 01/11/19 07:28 Urine pH 5.0 (5.0-8.0) 01/11/19 07:28 Ur Specific [place] 1.009 (1.001-1.035) 01/11/19 07:28 Urine Protein Negative (Negative) 01/11/19 07:28 Urine Glucose (UA) Negative (Negative) 01/11/19 07:28 Urine Ketones Negative (Negative) 01/11/19 07:28 Urine Blood Negative (Negative) 01/11/19 07:28 Urine Nitrite Negative (Negative) 01/11/19 07:28 Urine Bilirubin Negative (Negative) 01/11/19 07:28 Urine Urobilinogen <2.0 mg/dL (<2.0) 01/11/19 07:28 Ur Leukocyte Esterase Negative (Negative) 01/11/19 07:28 C. difficile (EIA) Intrp Positive (Negative) A 01/12/19 11:24 Microbiology 01/11/19 07:28 Urine,Voided Urine Culture - Final 01/11/19 06:45 Blood Blood Culture - Preliminary No Growth after 24 hours 01/11/19 03:54 Blood Blood Culture - Preliminary No Growth after 24 hours Abdominal x-ray: report reviewed (Right-sided infiltrate improved. However left side with extensive mass is noted by the computed tomography scan) Assessment and Plan (1) C. difficile colitis Narrative/Plan: 68-year-old male presents to Hospital feeling poorly with increasing weakness suffered a fall out of bed and appears to have a left ankle fracture orthopedic evaluation process. The patient did develop significant diarrhea which is new and given his recent course of multiple antibiotics including clindamycin C. diff testing was performed and is positive. The patient's chest x-rays reviewed and appears to more masslike process then pneumonic infiltration. Since his respiratory status feels considerably better will limit antimicrobial therapy as much as possible at this time. IV vancomycin has been started, cefepime was discontinued, oral vancomycin initiated treatment of the C. diff colitis and a hospitalized patien. Pulmonary critical care is following and they plan bronchoscopy tomorrow for evaluation and biopsy of the mass for diagnosis of this recurrent pneumonia and now appears to more masslike in nature. Review of the records reveal 11/30 there are bilateral infiltrates by 12/06 there was significantly better in 12/12 again had bilateral infiltrates that are somewhat improved today. With the active C. diff colitis will limit antibiotic therapy even further as he tolerates over the next day or 2. He is having generalized weakness. He is instructed in the importance of his protein intake to help his recovery. Current Visit: Yes Status: Acute Code(s): A04.72 - ENTEROCOLITIS D/T CLOST RIDIUM DIFFICILE, NOT SPCF RECUR SNOMED Code(s): 810259447 (2) Recurrent pneumonia Current Visit: Yes Status: Acute Code(s): J18.9 - PNEUMONIA, UNSPECIFIED ORGANISM SNOMED Code(s): 363560507
[2019-01-13 06:29] LABS: Anisocytosis Slight; HCT 24.7 % (39.0-53.0); HGB 7.6 gm/dL (13.0-17.5); Hypochromasia Moderate; MCH 30.9 pg (25.0-35.0); MCHC 30.6 g/dL (31.0-37.0); MCV 101.2 fL (80.0-100.0); Macrocytosis Moderate; Mean Platelet Volume 6.6; Platelet Count 280 k/uL (150-450); RBC 2.44 m/uL (4.30-5.90); RDW 18.1 % (11.5-15.5); WBC 8.2 k/uL (3.8-10.6)
[2019-01-13 06:38] LABS: African American GFR (CKD) >90 (>60 ml/min/1.73 sqM); Anion Gap 4 mmol/L; Blood Urea Nitrogen 12 mg/dL (9-20); Calcium 8.4 mg/dL (8.4-10.2); Carbon Dioxide 30 mmol/L (22-30); Chloride 109 mmol/L (98-107); Glucose 97 mg/dL (74-99); Magnesium 1.9 mg/dL (1.6-2.3); Potassium 3.4 mmol/L (3.5-5.1); Sodium 143 mmol/L (137-145)
[2019-01-13] MEDS: DILTIAZEM ORAL 60 MG TAB PO SCH ×4 (07:47→23:38)
[2019-01-13] MEDS: DIGOXIN 250 MCG TAB PO SCH (07:48)
[2019-01-13] MEDS: HYDROcodone/APAP 10-325MG 1 EACH TAB PO PRN ×2 (07:48→14:45)
[2019-01-13] MEDS: METOPROLOL TARTRATE 50 MG TAB PO SCH ×2 (07:51→20:47)
[2019-01-13] MEDS: SYMBICORT 160-4.5 MCG INHALER INHALATION SCH ×2 (09:06→20:16)
[2019-01-13] MEDS: IPRATROPIUM-ALBUTEROL 3 ML NEB INHALATION SCH ×4 (09:07→20:15)
--- NOTE | 2019-01-13 09:50 | P.CNOR ---
History of Present Illness - HPI Consult date: 01/13/19 Requesting physician: Wes Gamez Consult reason: fracture History of present illness: Patient is seen at bedside this morning in consult for left ankle fracture. He has unknown injury but he states he probably fell. He was admitted through the ED yesterday for recurrent multiple medical problems including pneumonia, COPD and klebsiella. He has had swelling and pain at the outside of the left ankle. No other current complaints. Review of Systems All systems: negative Constitutional: Denies chills, Denies fever Eyes: denies blurred vision, denies pain Ears, nose, mouth and throat: Denies headache, Denies sore throat Cardiovascular: Denies chest pain, Denies shortness of breath Respiratory: Denies cough Gastrointestinal: Denies abdominal pain, Denies diarrhea, Denies nausea, Denies vomiting Musculoskeletal: Denies myalgias Integumentary: Denies pruritus, Denies rash Neurological: Denies numbness, Denies weakness Psychiatric: Denies anxiety, Denies depression Endocrine: Denies fatigue, Denies weight change Past Medical History Past Medical History: Coronary Artery Disease (CAD), Chest Pain / Angina, COPD, CVA/TIA, Eye Disorder, GERD/Reflux, Hyperlipidemia, Hypertension, Osteoarthritis (OA), Prostate Disorder Additional Past Medical History / Comment(s): BPH, 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 History of Any Multi-Drug Resistant Organisms: ESBL Year Discovered:: 12/23/18 MDRO Source:: Sputum MDRO ESBL Past Surgical History: Adenoidectomy, Back Surgery, Heart Catheterization, Hernia Repair, Joint Replacement, Orthopedic Surgery, Tonsillectomy Additional Past Surgical History / Comment(s): L knee replacement, back surgery x3-failed fusion and 2 rods in lower back, L/R cataract surgery, bilat. rib removal (cervical), carpal tunnel R wrist, colonoscopy, L elbow surgery, abdominal hernia repair, 3 R inguinal hernia repairs, L inguinal hernia repair, rectal cystectomy.pain pump(ms) implanted removed 11/06/2018 Past Anesthesia/Blood Transfusion Reactions: Previous Problems w/ Anesthesia Additional Past Anesthesia/Blood Transfusion Reaction / Comm: With first surgery became belligerent when waking up. Past Psychological History: No Psychological Hx Reported Additional Psychological History / Comment(s): Pt resides with his spouse. He uses a cane to ambulate. has nebulizer He drives. 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 Is no longer smoking. No animals in the home Smoking Status: Former smoker Past Alcohol Use History: None Reported, Occasional Past Drug Use History: None Reported - Past Family History Mother Family Medical History: No Reported History Additional Family Medical History / Comment(s): Mother was healthy and lived to be 88 or 89yrs old. Father Family Medical History: Cancer Additional Family Medical History / Comment(s): Father of lung cancer in his early 70's. Medications and Allergies Home Medications Medication Instructions Recorded Confirmed Type Aspirin 81 mg PO DAILY 11/21/18 01/11/19 History Atorvastatin [Lipitor] 80 mg PO HS 11/21/18 01/11/19 History Esomeprazole Magnesium [NexIUM] 40 mg PO DAILY 11/21/18 01/11/19 History Gabapentin [Neurontin] 400 mg PO QID #120 cap 11/27/18 01/11/19 Rx HYDROcodone/APAP 10-325MG [[place] 1 tab PO Q6H PRN #30 tab 11/27/18 01/11/19 Rx 10-325] Cyclobenzaprine [Flexeril] 10 mg PO QID 11/30/18 01/11/19 History Apixaban [Eliquis] 5 mg PO BID #20 tab 12/03/18 01/11/19 Rx Digoxin 250 mcg PO DAILY #10 tablet 12/03/18 01/11/19 Rx Diltiazem HCl 90 mg PO Q6H #40 tablet 12/03/18 01/11/19 Rx Potassium Chloride ER [K-Dur 20] 20 meq PO BID #20 tab.er.prt 12/03/18 01/11/19 Rx Tamsulosin HCl [Flomax] 0.4 mg PO HS #20 capsule 12/03/18 01/11/19 Rx Tiotropium 18 Mcg/Puff [Spiriva] 1 puff INHALATION RT-DAILY 12/06/18 01/11/19 History Metoprolol Tartrate [Lopressor] 100 mg PO TID 01/11/19 01/11/19 History predniSONE 20 mg PO DAILY 01/11/19 01/11/19 History Allergies Allergy/AdvReac Type Severity Reaction Status Date / Time montelukast sodium AdvReac Itching Verified 01/11/19 09:38 [From Singulair] Physical Examination On exam, no proximal fibula tenderness to palpation. There is swelling about the lateral aspect of the ankle. Tenderness about the lateral malleolus to palpation. Achilles is intact. Minimal to no tenderness about the ankle medially. No pain at the 5th metatarsal to palpation. Limited motion secondary to fracture. Intact sensation at the lateral, medial and plantar first dorsal web spaces. There is 2+ posterior tibial pulse with brisk capillary refill in all digits. Results Xrays of left ankle show nondisplaced distal fibula fracture. mortise is intact - Labs Labs: Abnormal Lab Results - Last 24 Hours (Table) 01/12/19 01/13/19 01/13/19 Range/Units 11:24 05:42 05:42 RBC 2.44 L (4.30-5.90) m/uL Hgb 7.6 L (13.0-17.5) gm/dL Hct 24.7 L (39.0-53.0) % MCV 101.2 H (80.0-100.0) fL MCHC 30.6 L (31.0-37.0) g/dL RDW 18.1 H (11.5-15.5) % Potassium 3.4 L (3.5-5.1) mmol/L Chloride 109 H (98-107) mmol/L C. difficile (EIA) Intrp Positive A (Negative) Microbiology - Last 24 Hours (Table) 01/11/19 06:45 Blood Culture - Preliminary Blood No Growth after 48 hours 01/11/19 03:54 Blood Culture - Preliminary Blood No Growth after 48 hours 01/11/19 07:28 Urine Culture - Final Urine,Voided H & H 01/11/19 01/12/19 01/13/19 Range/Units 03:54 07:19 05:42 Hgb 8.8 L 7.8 L 7.6 L (13.0-17.5) gm/dL Hct 26.9 L 25.2 L 24.7 L (39.0-53.0) % Coagulation 01/11/19 Range/Units 03:54 INR 0.9 (<1.2) Result Diagrams: 01/13/19 05:42 01/13/19 05:42 - Diagnostic results Ankle/Foot x-ray: report reviewed, image reviewed Assessment and Plan (1) Fractured lateral malleolus Narrative/Plan: A walking boot has been ordered and may use for his left ankle fracture. No surgical intervention indicated or planned at this time. He may be WBAT in boot. Continue pain management and DVT prophylaxis. Ice and elevate. He may follow up as an outpatient in 1 week with xrays in office. Current Visit: Yes Status: Acute Priority: Medium Code(s): S82.63XA - DISP FX OF LATERAL MALLEOLUS OF UNSP FIBULA, INIT SNOMED Code(s): 852655014 Time with Patient: Less than 30
--- NOTE | 2019-01-13 10:17 | P.PN ---
Subjective Progress Note Date: 01/13/19 Principal diagnosis: Patient is a 68-year-old male with a history of recurrent pneumonia as last being Klebsiella ESBL on 12/21/18, paroxysmal atrial fibrillation on eliqu is, chronic hypoxic respiratory failure secondary to COPD on 4 L at home, and chronic diastolic congestive heart failure who presented to the emergency department with altered mentation. In the ER he underwent an extensive evaluation. He was found have a chest x-ray with worsening opacities, elevated white blood cell count, and a fever of 100.3. There is concern for recurrent pneumonia and he was started on Vanco and Zosyn. Arrangements were made for admission. Found have elevated lactic acid and elevated troponin. It was felt that his altered mentation was secondary to toxic metabolic encephalopathy. After arrival to the floor he started having left ankle pain. X-rays were completed which showed distal fibular fracture. He was seen by pulmonary who recommended a CT of the chest which demonstrated pneumonia versus mass like lesion and plan is for bronchoscopy on 12. He was seen by cardiology who felt that his troponin elevation was secondary to his chronic hypoxemia. On trend he has chronically elevated troponins. He also was noted to be having diarrhea and C. diff came back positive. Oral vancomycin was started. Infectious disease was consulted with his recent history of ESBL Klebsiella. Patient seen and examined at bedside, and being seen by orthopedic [employer] manufacturing consultant complain of ankle pain and reports pain as moderate, complain of weakness and fatigue and patient continues on IV and oral vancomycin. Patient schedule have bronchoscopy with BAL and possible biopsies later today no acute events overnight. Objective - Vital Signs Vital signs: Vital Signs Temp 97.1 F L 01/13/19 00:00 Pulse 76 01/13/19 04:00 Resp 20 01/13/19 04:00 BP 138/64 01/13/19 04:00 Pulse Ox 95 01/13/19 04:00 Intake & Output 01/12/19 01/13/19 01/13/19 18:59 06:59 18:59 Intake Total 890 Balance 890 Weight 98.2 kg Intake: Intake, IV Titration 50 Amount Cefepime 1 gm In Sodium 50 Chloride 0.9% 50 ml @ 100 mls/hr IVPB Q12HR [facility] Rx #:[id number] Oral 840 Other: Voiding Method Urinal # Voids 1 2 # Bowel Movements 5 1 2 - Exam General: Nontoxic-appearing, no distress, appears older than stated age Derm: warm, dry Head: atraumatic, normocephalic, symmetric Eyes: EOMI, no lid lag, anicteric sclera Mouth: no lip lesion, mucus membranes moist Cardiovascular: S1S2 reg, no murmur, positive posterior tibial pulse bilateral, Lungs: rhonich bilateral, no accessory muscle use Abdominal: soft, nontender to palpation, no guarding, no appreciable organomegaly Ext: no gross muscle atrophy, trace edema left ankle, no contractures Neuro: CN II-XI grossly intact, no focal neuro deficits Psych: Alert, oriented, appropriate affect - Labs CBC & Chem 7: 01/13/19 05:42 01/13/19 05:42 Labs: Abnormal Lab Results - Last 24 Hours (Table) 01/12/19 01/13/19 01/13/19 Range/Units 11:24 05:42 05:42 RBC 2.44 L (4.30-5.90) m/uL Hgb 7.6 L (13.0-17.5) gm/dL Hct 24.7 L (39.0-53.0) % MCV 101.2 H (80.0-100.0) fL MCHC 30.6 L (31.0-37.0) g/dL RDW 18.1 H (11.5-15.5) % Potassium 3.4 L (3.5-5.1) mmol/L Chloride 109 H (98-107) mmol/L C. difficile (EIA) Intrp Positive A (Negative) Microbiology - Last 24 Hours (Table) 01/11/19 06:45 Blood Culture - Preliminary Blood No Growth after 48 hours 01/11/19 03:54 Blood Culture - Preliminary Blood No Growth after 48 hours 01/11/19 07:28 Urine Culture - Final Urine,Voided Assessment and Plan Assessment: Bilateral pulmonary infiltrates, possible multidrug resistant pneumonia with history of recent ESBL -Continue with the Vanco and cefepime, await infectious disease recommendations -Multiple masslike consolidations on CT chest. Plan is for bronchoscopy on 01/13/19. In light of patient's confusion on admission would consider MRI brain if bronchoscopy revealed any masslike lesions. -Pulmonary hygiene -Sputum culture -Bronchodilators -Pulmonary recommendations appreciated, case discussed with Radha Bianca, CONTRACT MODELER - no signs of adrenal insufficiency C. diff -Oral vancomycin 125 mg every 6 hours -Contact precautions -Appreciate ID recommendations, Dr. Saldana following Left distal fibular fracture -Orthopedic consultation -Walking boot ordered -Pain control Toxic metabolic encephalopathy, Improved -Limit pain medications as able -Off gabapentin, flexeril -Consider MRI brain if bronchoscopy reveals masslike lesion Chronic troponin elevation -Cardiology recommendations appreciated -No further investigation plan at this time Acute on chronic hypoxic respiratory failure -Wean O2 as able -Treatment as above COPD without exacerbation -Continue with bronchodilators -Pulmonary hygiene -Pulmonary recommendations appreciated Compensated diastolic congestive heart failure with ejection fraction 55-60% - continue with metoprolol - no on ACEI and will not start - P. A fib, on eliquis - metoprolol and diltiazem decreased due to hypotension - digoxin - follow tele - cardio recs Chronic: Chronic Anemia Osteoarthritis Hypertension BPH Hiatal hernia Irritable bowel syndrome Coronary artery disease GERD HLD Lactic acidosis, improved DVT prophylaxis: eliquis Discussed with: Patient, nursing, pulmonary Anticipated discharge: 4-[address]: home
[2019-01-13] MEDS ORDERED: PROPOFOL 10 MG/ML 20 ML VIAL IV ONE (12:27)
[2019-01-13] MEDS ORDERED: IV FLUID CONTINUATION 600 ML IV ONE (13:06)
[2019-01-13] MEDS ORDERED: SODIUM CHLORIDE 0.9% 500 ML IV ONE (13:07)
--- NOTE | 2019-01-13 15:00 | P.PN ---
Subjective Progress Note Date: 01/13/19 Principal diagnosis: Acute bilateral lower lobe infiltrate, likely related to pneumonia, with recent infection of ESBL producing Klebsiella pneumonia This is a 68-year-old male patient is well-known to me from previous hospitalizations the patient was last seen in the hospital on 12/21/2018 for COPD and chronic hypoxic respiratory failure. The patient also known to have approximately atrial fibrillation. The patient has had several hospitalization. He was discharged from the hospital on 12/24/2018. During his early hospitalization the patient was found to have ESBL producing capsula pneumoniae and sravan bacterium and the patient was discharged home on IV Invanz. The patient was seen by infectious disease. The patient is sedated infusion in a subacute group home facility. He was discharged on 40 of oxygen nasal cannula. His COPD is improved and his overall condition was also improving. The patient came in yesterday to the emergency department as the patient was discharged approximately 4 days ago from the skilled facility back home. He did well for on today's and following that his condition got worse and the patient started feeling poor and his oral intake dropped and he had decreased energy level. He had increased sleepiness. The patient woke up this morning and slipped off his bed and he had his knee. He was quite warm to touch. No rep orted nausea vomiting diarrhea or aspiration. The patient came into the emergency department and the patient was found to have some degree of confusion and altered mentation. Unable to provide any history. In the emergency department the patient is a temperature 103 and he was admitted for an und erlying pneumonia. The chest x-ray also showed some bilateral infiltrates in lung bases. His white cell count was 11.4. Hemoglobin was at 8.8. The blood gases was done and showed a pH of 7.47 with a pCO2 of 46 and pO2 of 56 with an FiO2 of 40%. His troponin was at 0.16. Lactic acid level was at 2.6 and dropped down to 1.1. Creatinine was normal at 1.06. UA was negative. X-ray of the ankle showed no evidence of any fracture. Doppler of the lower extremity was also done that showed no evidence of any DVT in the lower extremity. The patient is currently on a combination of cefepime and vancomycin. He is on a prednisone 20 mg as part of his burst taper. Outpatient medications of been ordered resume. He is also on DuoNeb nebulized treatments around the clock. He is on 6 L of oxygen by nasal cannula with a pulse ox of 94%. The patient is seen today 01/12/2019 in follow-up on the selective care unit. He is currently sitting up in bed. More awake and alert today as compared to yesterday. Denies any altered mental status or confusion. He still somewhat unclear to the happenings of yesterday. He currently denies any worsening shortness of breath. He has a loose nonproductive cough. Remains on 6 L high flow nasal cannula and maintaining O2 saturations in the 90s. He is afebrile. Hemodynamically stable. Computed tomography scan of the chest yesterday revealed a masslike consolidation in the left upper lobe along the major fissure measuring up to 1.8 cm. There is some bulky mediastinal and left hilar lymphadenopathy. His chest x-ray revealed resolution of the previously seen right sided airspace disease with residual left interstitial pneumonitis. 1.3 cm nodule density is seen. The plan is for bronchoscopy with BAL and possible biopsies tomorrow. On 01/13/2019 patient is seen in follow-up on selective care unit, he is awake and alert he is on 6 L of oxygen with pulse ox of 96%, afebrile, hemodynamically stable. He is still dyspneic, weak and fatigued. No fever or chills. Weak cough, patient is going for bronchoscopy with BAL and possible biopsies today. Today's labs have been reviewed, showing white blood cell count of 8.2, hemoglobin of 7.6, serum sodium of 143, potassium is 3.4, chloride is 109, CO2 is 30, BUN is 12 creatinine 0.91. Hemodynamically stable, abiotic coverage in the form of vancomycin, and patient is on oral vancomycin for C. diff. Infectious disease is following. No altered mentation. No acute events overnight. Objective - Vital Signs Vital signs: Vital Signs Temp 98.1 F 01/13/19 08:00 Pulse 80 01/13/19 12:00 Resp 20 01/13/19 12:00 BP 141/67 01/13/19 08:00 Pulse Ox 96 01/13/19 08:00 Intake & Output 01/12/19 01/13/19 01/13/19 18:59 06:59 18:59 Intake Total 890 650 Balance 890 650 Weight 98.2 kg Intake: IV 650 Intake, IV Titration 50 Amount Cefepime 1 gm In Sodium 50 Chloride 0.9% 50 ml @ 100 mls/hr IVPB Q12HR [facility] Rx #:[id number] Oral 840 Other: Voiding Method Urinal Urinal # Voids 1 2 # Bowel Movements 5 1 1 - Exam GENERAL EXAM: Alert, pleasant, 68-year-old white male, on 6 L of oxygen with a pulse ox of 96%, comfortable in no apparent distress. HEAD: Normocephalic/atraumatic. EYES: Normal reaction of pupils, equal size. Conjunctiva pink, sclera white. NOSE: Clear with pink turbinates. THROAT: No erythema or exudates. NECK: No masses, no JVD, no thyroid enlargement, no adenopathy. CHEST: No chest wall deformity. Symmetrical expansion. LUNGS: Equal air entry with scattered rhonchi CVS: Regular rate and rhythm, normal S1 and S2, no gallops, no murmurs, no rubs ABDOMEN: Soft, nontender. No hepatosplenomegaly, normal bowel sounds, no guarding or rigidity. EXTREMITIES: No clubbing, no edema, no cyanosis, 2+ pulses and upper and lower extremities. MUSCULOSKELETAL: Muscle strength and tone normal. SPINE: No scoliosis or deformity SKIN: No rashes CENTRAL NERVOUS SYSTEM: Alert and oriented -3. No focal deficits, tone is normal in all 4 extremities. PSYCHIATRIC: Alert and oriented -3. Appropriate affect. Intact judgment and insight. - Labs CBC & Chem 7: 01/13/19 05:42 01/13/19 05:42 Labs: Abnormal Lab Results - Last 24 Hours (Table) 01/13/19 01/13/19 Range/Units 05:42 05:42 RBC 2.44 L (4.30-5.90) m/uL Hgb 7.6 L (13.0-17.5) gm/dL Hct 24.7 L (39.0-53.0) % MCV 101.2 H (80.0-100.0) fL MCHC 30.6 L (31.0-37.0) g/dL RDW 18.1 H (11.5-15.5) % Potassium 3.4 L (3.5-5.1) mmol/L Chloride 109 H (98-107) mmol/L Microbiology - Last 24 Hours (Table) 01/11/19 06:45 Blood Culture - Preliminary Blood No Growth after 48 hours 01/11/19 03:54 Blood Culture - Preliminary Blood No Growth after 48 hours 01/11/19 07:28 Urine Culture - Final Urine,Voided Assessment and Plan Plan: 1 bilateral lower lobe pulmonary infiltrate, consider pneumonia especially the patient has had recurrent bouts of pneumonias in the past including infection with ESBL producing Klebsiella pneumoniae for which she has completed course of IV Invanz on outpatient basis. 2 acute febrile illness, consider pneumonia 3 acute on chronic hypoxic respiratory failure currently on 60 of oxygen nasal cannula 4 altered mental status, consider secondary to underlying metabolic e ncephalopathy 5 mild lactic acidosis, improved 6 troponin leak 7 chronic COPD with chronic hypoxic respiratory failure maintain oxygen at 4 L per minute is a cannula, the patient's based on FEV1 is 1.59 L which is 40% of predicted 8 history approximately atrial fibrillation rate is controlled for now on long- term antibiotic ventilation with Eliquis 9 history of CVA 10 history of hypertension 11 history of chronic diastolic heart failure which is well compensated for now 12 chronic anemia 13 fall with trauma to the ankle without any fracture and a Doppler of the lower extremities was negative 14 previous history of CVA/TIA 15 osteoarthritis 16 BPH 17 hiatal hernia 18 irritable bowel syndrome 19 coronary artery disease 20 [id number] smoking history quit in May 2018 Plan: Continue current antibiotics, patient underwent a bronchoscopy with BAL and transbronchial needle aspiration biopsy. Will await the results of bronch washing cultures, and biopsy results. Hemodynamically patient is stable, no altered mentation. The patient has generalized weakness, and fatigue. Will restart patient's Eliquis today. We'll continue to follow I performed a history & physical examination of the patient and discussed their management with my nurse practitioner, Aicha Mosquera. I reviewed the nurse practitioner's note and agree with the documented findings and plan of care. Lung sounds are positive for scattered rhonchi, wheezes. The findings and the impression was discussed with the patient. I attest to the documentation by the nurse practitioner. Time with Patient: Less than 30
[2019-01-13] MEDS: CHERRY FLAVOR 60 ML BOTTLE PO SCH ×4 (15:46→23:38)
[2019-01-13] MEDS: VANCOMYCIN ORAL SOLUTION 250 MG/5 ML BOTTLE PO SCH ×3 (15:47→23:39)
[2019-01-13] MEDS: VANCOMYCIN 1,500 MG in SODIUM CHLORIDE 0.9% 250 ML IVPB SCH (16:17)
[2019-01-13] MEDS: ASPIRIN 81 MG PO SCH (16:20)
[2019-01-13] MEDS: PANTOPRAZOLE 40 MG TABLET PO SCH (16:20)
[2019-01-13] MEDS: predniSONE 20 MG TAB PO SCH (16:20)
[2019-01-13] MEDS: ATORVASTATIN 80 MG TAB PO SCH (20:47)
[2019-01-13] MEDS: TAMSULOSIN 0.4 MG CAP.ER.24H PO SCH (20:47)
[2019-01-13] MEDS ORDERED: VANCOMYCIN TROUGH DUE 1 EACH MISC MISCELLANE ONE (21:00)
--- NOTE | 2019-01-14 01:15 | PCN ---
PROCEDURE NOTE PROCEDURE PERFORMED: Bronchoscopy. PREOP DIAGNOSES: Left lung pneumonia, abnormal CT scan, complete occlusion of left main stem bronchus. POSTOP DIAGNOSES: Mucus plugs. Complete obstruction of left mainstem bronchus, consider pneumonia. DESCRIPTION OF PROCEDURE: This procedure was done under conscious sedation. Anesthetics was admitted administered by GENERAL DISTILLERY WORKER at the bedside. After achieving adequate sedation, flexible bronchoscope was sent to right [facility] to address the upper airway. Examination of the posterior pharynx, larynx and epiglottis and vocal cords was done. All of the upper airway structures were within normal limits. A total of 2 mL of 1% lidocaine was applied to the vocal cords. Following that, the bronchoscope was advanced to the upper trachea. Examination of the tracheobronchial tree was done. There was a copious amount of purulent and respiratory secretions within the trachea and left mainstem bronchi that were suctioned out without any major difficulties. Approximately 20-25 mL of purulent material was suctioned out. Some limited secretions also present in the right lung. Airway inspection was completed. Trachea was patent and within normal limits. Examination of left side included a patent left main stem bronchus following therapeutic airway suctioning. There was some irregularity in the left sided secondary sravan the left upper and left lower lobe. The lingular segment was slightly narrowed yet it was patent. The apical posterior and anterior segment of the left upper lobe were also within normal limits. Examination is left lower lobe showed some compressive atelectasis. Yet an airway was patent and free of any endobronchial tumor. Examination of the right side was within normal and the visualized airways include right upper lobe, right middle lobe and right lower lobe along with various segments and subsegments. At the end of the procedure, transbronchial needle aspirate of the secondary sravan the left upper lobe in the lingular segment was done. I used a 19-gauge cytology and histology needle knowing that there was some irregularities and suspected extrinsic compression at that level. Two passes were obtained using the 19 and 21-gauge needles. At the completion of the procedure, therapeutic airway suctioning was done. Bronchoscope was removed and the patient was transferred to recovery in stable condition. No bedside complications or bleeding. MMODL / IJN: [id number] /
[2019-01-14] MEDS: DILTIAZEM ORAL 60 MG TAB PO SCH ×4 (06:33→23:12)
[2019-01-14] MEDS: PANTOPRAZOLE 40 MG TABLET PO SCH (06:33)
[2019-01-14] MEDS: VANCOMYCIN ORAL SOLUTION 250 MG/5 ML BOTTLE PO SCH ×4 (06:34→23:13)
[2019-01-14] MEDS: CHERRY FLAVOR 60 ML BOTTLE PO SCH ×4 (06:34→23:13)
[2019-01-14 08:02] LABS: Anisocytosis Slight; Basophils % (A) 0 %; Eosinophils # (A) 0.1 k/uL (0-0.7); Eosinophils % (A) 2 %; HCT 25.8 % (39.0-53.0); HGB 7.7 gm/dL (13.0-17.5); Hypochromasia Moderate; Lymphocytes # (A) 1.2 k/uL (1.0-4.8); Lymphocytes % (A) 17 %; MCH 30.5 pg (25.0-35.0); MCV 101.5 fL (80.0-100.0); Macrocytosis Moderate; Mean Platelet Volume 6.5; Monocytes # (A) 0.6 k/uL (0-1.0); Monocytes % (A) 8 %; Neutrophils % (A) 70 %; Platelet Count 322 k/uL (150-450); Poikilocytosis Slight; RBC 2.54 m/uL (4.30-5.90); RDW 17.4 % (11.5-15.5); WBC 7.2 k/uL (3.8-10.6)
[2019-01-14 08:20] LABS: African American GFR (CKD) >90 (>60 ml/min/1.73 sqM); Anion Gap 2 mmol/L; Blood Urea Nitrogen 9 mg/dL (9-20); Calcium 8.8 mg/dL (8.4-10.2); Carbon Dioxide 32 mmol/L (22-30); Chloride 107 mmol/L (98-107); Glucose 98 mg/dL (74-99); Potassium 4.1 mmol/L (3.5-5.1); Sodium 141 mmol/L (137-145)
[2019-01-14] MEDS: METOPROLOL TARTRATE 50 MG TAB PO SCH ×2 (09:19→21:15)
[2019-01-14] MEDS: VANCOMYCIN 1,500 MG in SODIUM CHLORIDE 0.9% 250 ML IVPB SCH ×2 (09:19→23:12)
[2019-01-14] MEDS: predniSONE 20 MG TAB PO SCH (09:20)
[2019-01-14] MEDS: ASPIRIN 81 MG PO SCH (09:20)
[2019-01-14] MEDS: DIGOXIN 250 MCG TAB PO SCH (09:20)
[2019-01-14] MEDS: HYDROcodone/APAP 10-325MG 1 EACH TAB PO PRN ×2 (09:23→15:02)
[2019-01-14] MEDS: SYMBICORT 160-4.5 MCG INHALER INHALATION SCH ×2 (10:36→20:33)
[2019-01-14] MEDS: IPRATROPIUM-ALBUTEROL 3 ML NEB INHALATION SCH ×4 (10:36→20:34)
--- NOTE | 2019-01-14 14:53 | P.PN ---
Subjective Progress Note Date: 01/14/19 Principal diagnosis: Acute bilateral lower lobe infiltrate, likely related to pneumonia, with recent infection of ESBL producing Klebsiella pneumonia This is a 68-year-old male patient is well-known to me from previous hospitalizations the patient was last seen in the hospital on 12/21/2018 for COPD and chronic hypoxic respiratory failure. The patient also known to have approximately atrial fibrillation. The patient has had several hospitalization. He was discharged from the hospital on 12/24/2018. During his early hospitalization the patient was found to have ESBL producing capsula pneumoniae and sravan bacterium and the patient was discharged home on IV Invanz. The patient was seen by infectious disease. The patient is sedated infusion in a subacute [facility] facility. He was discharged on 40 of oxygen nasal cannula. His COPD is improved and his overall condition was also improving. The patient came in yesterday to the emergency department as the patient was discharged approximately 4 days ago from the skilled facility back home. He did well for on today's and following that his condition got worse and the patient started feeling poor and his oral intake dropped and he had decreased energy level. He had increased sleepiness. The patient woke up this morning and slipped off his bed and he had his knee. He was quite warm to touch. No rep orted nausea vomiting diarrhea or aspiration. The patient came into the emergency department and the patient was found to have some degree of confusion and altered mentation. Unable to provide any history. In the emergency department the patient is a temperature 103 and he was admitted for an und erlying pneumonia. The chest x-ray also showed some bilateral infiltrates in lung bases. His white cell count was 11.4. Hemoglobin was at 8.8. The blood gases was done and showed a pH of 7.47 with a pCO2 of 46 and pO2 of 56 with an FiO2 of 40%. His troponin was at 0.16. Lactic acid level was at 2.6 and dropped down to 1.1. Creatinine was normal at 1.06. UA was negative. X-ray of the ankle showed no evidence of any fracture. Doppler of the lower extremity was also done that showed no evidence of any DVT in the lower extremity. The patient is currently on a combination of cefepime and vancomycin. He is on a prednisone 20 mg as part of his burst taper. Outpatient medications of been ordered resume. He is also on DuoNeb nebulized treatments around the clock. He is on 6 L of oxygen by nasal cannula with a pulse ox of 94%. The patient is seen today 01/12/2019 in follow-up on the selective care unit. He is currently sitting up in bed. More awake and alert today as compared to yesterday. Denies any altered mental status or confusion. He still somewhat unclear to the happenings of yesterday. He currently denies any worsening shortness of breath. He has a loose nonproductive cough. Remains on 6 L high flow nasal cannula and maintaining O2 saturations in the 90s. He is afebrile. Hemodynamically stable. Computed tomography scan of the chest yesterday revealed a masslike consolidation in the left upper lobe along the major fissure measuring up to 1.8 cm. There is some bulky mediastinal and left hilar lymphadenopathy. His chest x-ray revealed resolution of the previously seen right sided airspace disease with residual left interstitial pneumonitis. 1.3 cm nodule density is seen. The plan is for bronchoscopy with BAL and possible biopsies tomorrow. On 01/13/2019 patient is seen in follow-up on selective care unit, he is awake and alert he is on 6 L of oxygen with pulse ox of 96%, afebrile, hemodynamically stable. He is still dyspneic, weak and fatigued. No fever or chills. Weak cough, patient is going for bronchoscopy with BAL and possible biopsies today. Today's labs have been reviewed, showing white blood cell count of 8.2, hemoglobin of 7.6, serum sodium of 143, potassium is 3.4, chloride is 109, CO2 is 30, BUN is 12 creatinine 0.91. Hemodynamically stable, abiotic coverage in the form of vancomycin, and patient is on oral vancomycin for C. diff. Infectious disease is following. No altered mentation. No acute events overnight. On 01/14/2019 patient seen in follow-up on selective care unit, recovered, sitting up in the recliner, in no acute distress, states his breathing is improving, patient is less congested, less bronchospastic, lung sounds reveal some coarse crackles at the left lung base, no significant wheezing on today's exam, bronchial wash cultures are still pending. Left upper lobe weighing needle aspirate was nondiagnostic. Left lower lobe lavage showed reactive bronchial lining cells, superficial squamous cells, macrophages admixed inflammatory cells, but no cytologically malignant cells were identified. Today's labs have been reviewed showing white blood cell, 7.2, hemoglobin is 7.7, electrolytes were within normal limits, with the exception of CO2 which is at 32, BUN is 9 and creatinine 0.81. Patient continues on IV and oral vancomycin, nebulized colitis, Symbicort. Oral prednisone at 20 mg daily. Objective - Vital Signs Vital signs: Vital Signs Temp 98 F 01/14/19 09:15 Pulse 80 01/14/19 11:05 Resp 16 01/14/19 09:15 BP 162/70 01/14/19 09:15 Pulse Ox 98 01/14/19 09:15 Intake & Output 01/13/19 01/14/19 01/14/19 18:59 06:59 18:59 Intake Total 1130 800 344 Output Total 200 Balance 1130 600 344 Weight 96.5 kg Intake: IV 650 Oral 480 800 344 Output: Urine 200 Other: Voiding Method Urinal Urinal # Voids 2 2 1 # Bowel Movements 1 1 1 - Exam GENERAL EXAM: Alert, pleasant, 68-year-old white male, on 6 L of oxygen with a pulse ox of 96%, comfortable in no apparent distress. HEAD: Normocephalic/atraumatic. EYES: Normal reaction of pupils, equal size. Conjunctiva pink, sclera white. NOSE: Clear with pink turbinates. THROAT: No erythema or exudates. NECK: No masses, no JVD, no thyroid enlargement, no adenopathy. CHEST: No chest wall deformity. Symmetrical expansion. LUNGS: Equal air entry with scattered rhonchi CVS: Regular rate and rhythm, normal S1 and S2, no gallops, no murmurs, no rubs ABDOMEN: Soft, nontender. No hepatosplenomegaly, normal bowel sounds, no guarding or rigidity. EXTREMITIES: No clubbing, no edema, no cyanosis, 2+ pulses and upper and lower extremities. MUSCULOSKELETAL: Muscle strength and tone normal. SPINE: No scoliosis or deformity SKIN: No rashes CENTRAL NERVOUS SYSTEM: Alert and oriented -3. No focal deficits, tone is normal in all 4 extremities. PSYCHIATRIC: Alert and oriented -3. Appropriate affect. Intact judgment and insight. - Labs CBC & Chem 7: 01/14/19 07:21 01/14/19 07:21 Labs: Abnormal Lab Results - Last 24 Hours (Table) 01/14/19 01/14/19 Range/Units 07:21 07:21 RBC 2.54 L (4.30-5.90) m/uL Hgb 7.7 L (13.0-17.5) gm/dL Hct 25.8 L (39.0-53.0) % MCV 101.5 H (80.0-100.0) fL MCHC 30.0 L (31.0-37.0) g/dL RDW 17.4 H (11.5-15.5) % Carbon Dioxide 32 H (22-30) mmol/L Microbiology - Last 24 Hours (Table) 01/11/19 06:45 Blood Culture - Preliminary Blood No Growth after 72 hours 01/11/19 03:54 Blood Culture - Preliminary Blood No Growth after 72 hours 01/13/19 13:00 Gram Stain - Preliminary Bronchial Washings - Left Bronchial Washings Culture - Preliminary 01/13/19 13:00 Acid Fast Bacilli Culture - Preliminary Bronchial Washings - Left 01/13/19 13:00 Fungal Culture - Preliminary Bronchial Washings - Left Assessment and Plan Plan: 1 bilateral lower lobe pulmonary infiltrate, consider pneumonia especially the patient has had recurrent bouts of pneumonias in the past including infection with ESBL producing Klebsiella pneumoniae for which she has completed course of IV Invanz on outpatient basis. 2 acute febrile illness, consider pneumonia 3 acute on chronic hypoxic respiratory failure currently on 60 of oxygen nasal cannula 4 altered mental status, consider secondary to underlying metabolic encephalopat hy 5 mild lactic acidosis, improved 6 troponin leak 7 chronic COPD with chronic hypoxic respiratory failure maintain oxygen at 4 L per minute is a cannula, the patient's based on FEV1 is 1.59 L which is 40% of predicted 8 history approximately atrial fibrillation rate is controlled for now on long- term antibiotic ventilation with Eliquis 9 history of CVA 10 history of hypertension 11 history of chronic diastolic heart failure which is well compensated for now 12 chronic anemia 13 fall with trauma to the ankle without any fracture and a Doppler of the lower extremities was negative 14 previous history of CVA/TIA 15 osteoarthritis 16 BPH 17 hiatal hernia 18 irritable bowel syndrome 19 coronary artery disease 20 [id number] smoking history quit in May 2018 Plan: We will continue current antibiotics, will await the results of the final bronchial wash cultures, cytology and fine-needle aspiration biopsy was nondiagnostic, cytology of the bronchial wash was negative. The patient is improving, vital signs are stable, continue nebulized bronchodilators, oral prednisone. Continue to follow. I performed a history & physical examination of the patient and discussed their management with my nurse practitioner, Aicha Mosquera. I reviewed the nurse practitioner's note and agree with the documented findings and plan of care. Lung sounds are positive for scattered rhonchi, wheezes. The findings and the impression was discussed with the patient. I attest to the documentation by the nurse practitioner. Time with Patient: Less than 30
--- NOTE | 2019-01-14 17:33 | P.PN ---
Subjective Progress Note Date: 01/14/19 Principal diagnosis: Patient is a 68-year-old male with a history of recurrent pneumonia as last being Klebsiella ESBL on 12/21/18, paroxysmal atrial fibrillation on eliqu is, chronic hypoxic respiratory failure secondary to COPD on 4 L at home, and chronic diastolic congestive heart failure who presented to the emergency department with altered mentation. In the ER he underwent an extensive evaluation. He was found have a chest x-ray with worsening opacities, elevated white blood cell count, and a fever of 100.3. There is concern for recurrent pneumonia and he was started on Vanco and Zosyn. Arrangements were made for admission. Found have elevated lactic acid and elevated troponin. It was felt that his altered mentation was secondary to toxic metabolic encephalopathy. After arrival to the floor he started having left ankle pain. X-rays were completed which showed distal fibular fracture. He was seen by pulmonary who recommended a CT of the chest which demonstrated pneumonia versus mass like lesion and plan is for bronchoscopy on ch 12. He was seen by cardiology who felt that his troponin elevation was secondary to his chronic hypoxemia. On trend he has chronically elevated troponins. He also was noted to be having diarrhea and C. diff came back positive. Oral vancomycin was started. Infectious disease was consulted with his recent history of ESBL Klebsiella. Patient seen and examined at bedside, complain of weakness and fatigue and patient continues on IV and oral vancomycin. The patient had bronchoscopy with BAL, bronchial wash cultures still pending. Patient feels much better and wants to go home stress breath improved and lung sounds much better. No acute events overnight Objective - Vital Signs Vital signs: Vital Signs Temp 98.5 F 01/14/19 17:15 Pulse 84 01/14/19 17:15 Resp 16 01/14/19 17:15 BP 145/65 01/14/19 17:15 Pulse Ox 94 L 01/14/19 17:15 Intake & Output 01/13/19 01/14/19 01/14/19 18:59 06:59 18:59 Intake Total 1130 800 344 Output Total 200 Balance 1130 600 344 Weight 96.5 kg Intake: IV 650 Oral 480 800 344 Output: Urine 200 Other: Voiding Method Urinal Urinal Urinal # Voids 2 2 1 # Bowel Movements 1 1 1 - Exam General: Nontoxic-appearing, no distress, appears older than stated age Derm: warm, dry Head: atraumatic, normocephalic, symmetric Eyes: EOMI, no lid lag, anicteric sclera Mouth: no lip lesion, mucus membranes moist Cardiovascular: S1S2 reg, no murmur, positive posterior tibial pulse bilateral, Lungs: Diminished in the bases but clear to auscultation, no accessory muscle use Abdominal: soft, nontender to palpation, no guarding, no appreciable organomegaly Ext: no gross muscle atrophy, trace edema left ankle, no contractures Neuro: CN II-XI grossly intact, no focal neuro deficits Psych: Alert, oriented, appropriate affect - Labs CBC & Chem 7: 01/14/19 07:21 01/14/19 07:21 Labs: Abnormal Lab Results - Last 24 Hours (Table) 01/13/19 01/14/19 01/14/19 Range/Units 13:00 07:21 07:21 RBC 2.54 L (4.30-5.90) m/uL Hgb 7.7 L (13.0-17.5) gm/dL Hct 25.8 L (39.0-53.0) % MCV 101.5 H (80.0-100.0) fL MCHC 30.0 L (31.0-37.0) g/dL RDW 17.4 H (11.5-15.5) % Carbon Dioxide 32 H (22-30) mmol/L Viral Test See Below H Microbiology - Last 24 Hours (Table) 01/11/19 06:45 Blood Culture - Preliminary Blood No Growth after 72 hours 01/11/19 03:54 Blood Culture - Preliminary Blood No Growth after 72 hours 01/13/19 13:00 Gram Stain - Preliminary Bronchial Washings - Left Bronchial Washings Culture - Preliminary 01/13/19 13:00 Acid Fast Bacilli Culture - Preliminary Bronchial Washings - Left 01/13/19 13:00 Fungal Culture - Preliminary Bronchial Washings - Left Assessment and Plan Assessment: Bilateral pulmonary infiltrates, possible multidrug resistant pneumonia with history of recent ESBL -Continue with the Vanco and cefepime, await infectious disease recommendations -Multiple masslike consolidations on CT chest. Plan is for bronchoscopy on 01/13/19. In light of patient's confusion on admission would consider MRI brain if bronchoscopy revealed any masslike lesions. -Pulmonary hygiene -Sputum culture -Bronchodilators -Pulmonary recommendations appreciated, case discussed with Radah Valenzuela BICYCLE COURIER - no signs of adrenal insufficiency C. diff -Oral vancomycin 125 mg every 6 hours -Contact precautions -Appreciate ID recommendations, Dr. Saldana following Left distal fibular fracture -Orthopedic consultation -Walking boot ordered -Pain control will DC Dawson and start Percocet Toxic metabolic encephalopathy, Improved -Limit pain medications as able -Off gabapentin, flexeril -Consider MRI brain if bronchoscopy reveals masslike lesion Chronic troponin elevation -Cardiology recommendations appreciated -No further investigation plan at this time Acute on chronic hypoxic respiratory failure -Wean O2 as able -Treatment as above COPD without exacerbation -Continue with bronchodilators -Pulmonary hygiene -Pulmonary recommendations appreciated we'll continue current treatment and wait for results from BAL to return Compensated diastolic congestive heart failure with ejection fraction 55-60% - continue with metoprolol - no on ACEI and will not start - P. A fib, on eliquis - metoprolol and diltiazem decreased due to hypotension - digoxin - follow tele - cardio recs Chronic: Chronic Anemia Osteoarthritis Hypertension BPH Hiatal hernia Irritable bowel syndrome Coronary artery disease GERD HLD Lactic acidosis, improved DVT prophylaxis: restart eliquis Today Discussed with: Patient, nursing, pulmonary Anticipated discharge:1-[address]: home
[2019-01-14] MEDS: oxyCODONE-APAP 7.5-325MG 1 EACH TAB PO PRN (20:07)
[2019-01-14] MEDS: ATORVASTATIN 80 MG TAB PO SCH (21:15)
[2019-01-14] MEDS: APIXABAN 5 MG TAB PO SCH (21:15)
[2019-01-14] MEDS: TAMSULOSIN 0.4 MG CAP.ER.24H PO SCH (21:15)
[2019-01-15] MEDS: DILTIAZEM ORAL 60 MG TAB PO SCH ×3 (06:06→17:23)
[2019-01-15] MEDS: VANCOMYCIN ORAL SOLUTION 250 MG/5 ML BOTTLE PO SCH ×4 (06:07→23:29)
[2019-01-15] MEDS: CHERRY FLAVOR 60 ML BOTTLE PO SCH ×4 (06:07→23:29)
[2019-01-15] MEDS: oxyCODONE-APAP 7.5-325MG 1 EACH TAB PO PRN ×3 (06:08→18:57)
[2019-01-15 07:38] LABS: African American GFR (CKD) >90 (>60 ml/min/1.73 sqM)
[2019-01-15] MEDS: SYMBICORT 160-4.5 MCG INHALER INHALATION SCH ×2 (08:27→20:03)
[2019-01-15] MEDS: IPRATROPIUM-ALBUTEROL 3 ML NEB INHALATION SCH ×4 (08:27→20:03)
[2019-01-15] MEDS: PANTOPRAZOLE 40 MG TABLET PO SCH (11:10)
[2019-01-15] MEDS: predniSONE 20 MG TAB PO SCH (11:12)
[2019-01-15] MEDS: APIXABAN 5 MG TAB PO SCH ×2 (11:12→21:14)
[2019-01-15] MEDS: METOPROLOL TARTRATE 50 MG TAB PO SCH ×2 (11:12→21:14)
[2019-01-15] MEDS: DIGOXIN 250 MCG TAB PO SCH (11:12)
[2019-01-15] MEDS: ASPIRIN 81 MG PO SCH (11:12)
--- NOTE | 2019-01-15 12:37 | P.PN ---
Subjective Progress Note Date: 01/15/19 Principal diagnosis: Acute bilateral lower lobe infiltrate consider probable pneumonia with recent infection of ESBL producing Klebsiella pneumoniae. This is a 68-year-old male patient is well-known to me from previous hospitalizations the patient was last seen in the hospital on 12/21/2018 for COPD and chronic hypoxic respiratory failure. The patient also known to have approximately atrial fibrillation. The patient has had several hospitalization. He was discharged from the hospital on 12/24/2018. During his early hospitalization the patient was found to have ESBL producing capsula pneumoniae and sravan bacterium and the patient was discharged home on IV Invanz. The patient was seen by infectious disease. The patient is sedated infusion in a subacute shelter facility. He was discharged on 40 of oxygen nasal cannula. His COPD is improved and his overall condition was also improving. The patient came in yesterday to the emergency department as the patient was discharged approximately 4 days ago from the skilled facility back home. He did well for on today's and following that his condition got worse and the patient started feeling poor and his oral intake dropped and he had decreased energy level. He had increased sleepiness. The patient woke up this morning and slipped off his bed and he had his knee. He was quite warm to touch. No rep orted nausea vomiting diarrhea or aspiration. The patient came into the emergency department and the patient was found to have some degree of confusion and altered mentation. Unable to provide any history. In the emergency department the patient is a temperature 103 and he was admitted for an und erlying pneumonia. The chest x-ray also showed some bilateral infiltrates in lung bases. His white cell count was 11.4. Hemoglobin was at 8.8. The blood gases was done and showed a pH of 7.47 with a pCO2 of 46 and pO2 of 56 with an FiO2 of 40%. His troponin was at 0.16. Lactic acid level was at 2.6 and dropped down to 1.1. Creatinine was normal at 1.06. UA was negative. X-ray of the ankle showed no evidence of any fracture. Doppler of the lower extremity was also done that showed no evidence of any DVT in the lower extremity. The patient is currently on a combination of cefepime and vancomycin. He is on a prednisone 20 mg as part of his burst taper. Outpatient medications of been ordered resume. He is also on DuoNeb nebulized treatments around the clock. He is on 6 L of oxygen by nasal cannula with a pulse ox of 94%. The patient is seen today 01/15/2019 in follow-up on the selective care unit. He is currently sitting up in a chair at the bedside. Awake alert oriented. He denies any worsening shortness of breath. Loose nonproductive cough. Improved compared to yesterday. He remains on bronchodilators and Symbicort. Vancomycin for C. difficile. He is currently afebrile. Hemodynamically stable. Maintaining good O2 saturations in the 90s on 2 L/m per nasal cannula. Bronchial wash were positive for Linda only. Objective - Vital Signs Vital signs: Vital Signs Temp 97.7 F 01/15/19 08:00 Pulse 86 01/15/19 11:57 Resp 20 01/15/19 08:00 BP 146/65 01/15/19 08:00 Pulse Ox 95 01/15/19 08:00 Intake & Output 01/14/19 01/15/19 01/15/19 18:59 06:59 18:59 Intake Total 824 226 Balance 824 226 Weight 98 kg Intake: Oral 824 226 Other: Voiding Method Urinal Urinal # Voids 1 1 # Bowel Movements 1 - Exam GENERAL EXAM: 68-year-old male patient, awake and alert, the 2 L nasal cannula with a pulse ox of 94%, comfortable in no apparent distress. HEAD: Normocephalic/atraumatic. EYES: Normal reaction of pupils, equal size. Conjunctiva pink, sclera white. NOSE: Clear with pink turbinates. THROAT: No erythema or exudates. NECK: No masses, no JVD, no thyroid enlargement, no adenopathy. CHEST: No chest wall deformity. Symmetrical expansion. LUNGS: Diminished breath sounds, with the expiratory wheezes and rhonchi at the bases, more so on the left CVS: Regular rate and rhythm, normal S1 and S2, no gallops, no murmurs, no rubs ABDOMEN: Soft, nontender. No hepatosplenomegaly, normal bowel sounds, no guarding or rigidity. EXTREMITIES: No clubbing, no edema, no cyanosis, 2+ pulses and upper and lower extremities. MUSCULOSKELETAL: Muscle strength and tone normal. SPINE: No scoliosis or deformity SKIN: No rashes CENTRAL NERVOUS SYSTEM: No focal deficits, tone is normal in all 4 extremities. Poor historian. PSYCHIATRIC: Unable to do due to the above-mentioned altered mentation - Labs CBC & Chem 7: 01/14/19 07:21 01/15/19 07:16 Labs: Abnormal Lab Results - Last 24 Hours (Table) 01/13/19 Range/Units 13:00 Viral Test See Below H Microbiology - Last 24 Hours (Table) 01/13/19 13:00 Gram Stain - Final Bronchial Washings - Left Bronchial Washings Culture - Final Linda albicans 01/11/19 06:45 Blood Culture - Preliminary Blood No Growth after 96 hours 01/11/19 03:54 Blood Culture - Preliminary Blood No Growth after 96 hours 01/13/19 13:00 Acid Fast Bacilli Smear - Final Bronchial Washings - Left Acid Fast Bacilli Culture - Preliminary Assessment and Plan Assessment: Impression: 1 bilateral lower lobe pulmonary infiltrate, consider pneumonia especially the patient has had recurrent bouts of pneumonias in the past including infection with ESBL producing Klebsiella pneumoniae for which he has completed course of IV Invanz on outpatient basis. 2 acute febrile illness, consider pneumonia 3 acute on chronic hypoxic respiratory failure currently on 60 of oxygen nasal cannula 4 altered mental status, consider secondary to underlying metabolic encephalopathy 5 mild lactic acidosis, improved 6 troponin leak 7 chronic COPD with chronic hypoxic respiratory failure maintain oxygen at 4 L per minute is a cannula, the patient's based on FEV1 is 1.59 L which is 40% of predicted 8 history approximately atrial fibrillation rate is controlled for now on long- term antibiotic ventilation with Eliquis 9 history of CVA 10 history of hypertension 11 history of chronic diastolic heart failure which is well compensated for now 12 chronic anemia 13 fall with trauma to the ankle without any fracture and a Doppler of the lower extremities was negative 14 previous history of CVA/TIA 15 osteoarthritis 16 BPH 17 hiatal hernia 18 irritable bowel syndrome 19 coronary artery disease 20 [id number] smoking history quit in May 2018 21 C. difficile toxin. Plan The patient was seen and evaluated by Dr. Santiago. Pathology negative post bronchoscopy. He remains on IV vancomycin for pulmonary coverage with oral vancomycin for C. difficile. Continue bronchodilators. He is improved. Possible discharge later today or in a.m. I, the cosigning physician, performed a history & physical examination of the patient. Lungs sounds with few scattered rhonchi. Maintaining good O2 saturations in the 90s on 6 L high flow nasal cannula. I discussed the asses sment and plan of care with my nurse practitioner, Radha Valenzuela. I attest to the above note as dictated by her.
--- NOTE | 2019-01-15 14:00 | CDI ---
Documentation Clarification Form Date: 01/15/2019 From: Radha Solano RN, CCDS Admit Date: 01/11/2019 5:34:00 AM Patient Name: Celso Khanna Visit Number: [id number] Discharge Date: ATTENTION: The Clinical Documentation Specialists (CDI) and [facility] Coding Staff appreciate your assistance in clarifying documentation. Please respond to the clarification below the line at the bottom and electronically sign. The CDI & [facility] Coding staff will review the response and follow-up if needed. Please note: Queries are made part of the Legal Health Record. If you have any questions, please contact the author of this message via ITS. Dr. Jp Santiago Pneumonia was documented in your notes on consult and ongoing progress notes but additional clarification is needed for the type of pneumonia your are treating. History/Risk Factors: ESBL producing Klebsella pneumoniae, COPD, Chronic hypoxic respiratory failure, Paroxysmal atrial fibrillation Clinical Indicators: 68-year-old male who present to ED with confusion and altered mentation. he was admitted for an underlying pneumonia. Chest x-ray showed some bilateral infiltrates in lung bases. CT chest: masslike consolidation in the left hilar lymphadenopathy. Chest x-ray revealed resolution of the previously seen right sided airspace disease with residual left interstitial pneumonitis. Vital signs: 101/43 80 18 99.0, 94 % 4/L NC, 103/78 77 18 100.3 96 % 5/L NC WBC/Left shift: 11.4, Neutrophils 8.44, Lactid acid 2.6, C. difficile -Positive Bronchial Washings culture Final: Linda albicans Fungal culture-Pending Acid Fast Bacilli Culture Pending Acid Fast Bacilli Smear final: No acid Fast Bacilli seen on concentrated smear Treatment: Antibiotics Vancomycin IV (Pharmacy to dose) Monitor O2 Sat's (titrate) Breathing Tx: Duoneb's Inhalation per orders In order to capture the severity of condition, please clarify the type of pneumonia you are treating: Bacterial Pneumonia, specify causal organism (if known) Gram Negative Pneumonia Due to Strep Due to Staph Due to E. Coli Other bacteria (please specify) Other, please specify Unable to determine (Last Revision: November 2017) MTDD
[2019-01-15] MEDS ORDERED: VANCOMYCIN TROUGH DUE 1 EACH MISC MISCELLANE ONE (15:00)
[2019-01-15] MEDS: VANCOMYCIN 1,500 MG in SODIUM CHLORIDE 0.9% 250 ML IVPB SCH (15:45)
[2019-01-15] MEDS: ATORVASTATIN 80 MG TAB PO SCH (21:14)
[2019-01-15] MEDS: TAMSULOSIN 0.4 MG CAP.ER.24H PO SCH (21:14)
[2019-01-16] MEDS: DILTIAZEM ORAL 60 MG TAB PO SCH ×3 (00:37→11:20)
--- NOTE | 2019-01-16 00:46 | P.PN ---
Subjective Progress Note Date: 01/15/19 68-year-old male that has a known history of COPD with chronic hypoxic respiratory failure underlying coronary artery disease with proximal atrial fibrillation and obesity. In the recent past he was hospitalized with respiratory failure and pneumonia. He was discharged home about a week ago h owever the outpatient setting he started to fail. He increasing shortness of breath and cough increasing weakness and altered mental status. Also related he develop a fever because he was brought back in the hospital. Evaluation for evidence of ongoing pneumonia that had worsened because he was admitted. He again was stabilized improved and discharged home. He again feels ill He however has now developed significant diarrhea and is having difficulty with nutrition. He feels quite poorly overall. He is denying high-grade fevers or chills. His respiratory status is actually improved. He does not feel short of breath as he was. He is not having new cough or sputum production. Discomforts in his chest. He has some mild abdominal discomfort but is denying significant pain. Appetite somewhat poor but no nausea or emesis. No hematemesis melena or hematochezia. 01/15/2019 the patient is feeling considerably better after his bronchoscopy. His shortness of breath is improved and is related to his biopsy did not fit a malignant cells but may have been a inadequate specimen. Regardless of patient is feeling better and plans are being put into place for his discharge soon. Is having no fevers or chills. Sitting upright in feeling better. He is eating his meals without difficulty. His diarrhea has improved. Objective - Vital Signs Vital signs: Vital Signs Temp 97.8 F 01/15/19 21:08 Pulse 93 01/15/19 21:08 Resp 18 01/15/19 21:08 BP 147/65 01/15/19 21:08 Pulse Ox 95 01/15/19 21:08 Intake & Output 01/15/19 01/15/19 01/16/19 06:59 18:59 06:59 Intake Total 226 Balance 226 Weight 98 kg Intake: Oral 226 Other: Voiding Method Urinal Urinal Urinal # Voids 1 0 # Bowel Movements 0 - Exam 68-year-old male who is less short of breath but relates he feels better HEENT: Anicteric conjunctiva are pink and moist nasal mucosa grossly intact without significant lesions, there is no thrush. Neck: The neck is supple without significant lymphadenopathy or thyromegaly. Lungs: There is symmetrical air entry, there are still significant crackles in the left base with localized egophony to the left base, right bases with crackles. Some expiratory wheezes are still heard. There was no dullness. Heart: Irregular positive S4. There is no significant murmur click or rub, PMI was nondisplaced. Abdomen: Obese, Positive bowel sounds soft and minimal tenderness especailly periumbilical without palpable masses or organomegaly. There was no guarding or rebound. Extremities: The upper extremities have excellent pulses they are symmetric, no significant petechiae or telangiectasia. No splinter hemorrhages were noted. Lower extremities evidence of chronic venous stasis chronic edema no open ulcers Neuro: Awake alert oriented to person place and time. There are no acute new gross focal sensory motor deficits. - Labs CBC & Chem 7: 01/14/19 07:21 01/15/19 07:16 Labs: Microbiology - Last 24 Hours (Table) 01/13/19 13:00 Gram Stain - Final Bronchial Washings - Left Bronchial Washings Culture - Final Linda albicans 01/11/19 06:45 Blood Culture - Preliminary Blood No Growth after 96 hours 01/11/19 03:54 Blood Culture - Preliminary Blood No Growth after 96 hours 01/13/19 13:00 Acid Fast Bacilli Smear - Final Bronchial Washings - Left Acid Fast Bacilli Culture - Preliminary Laboratory Results WBC 7.2 k/uL (3.8-10.6) 01/14/19 07:21 RBC 2.54 m/uL (4.30-5.90) L 01/14/19 07:21 Hgb 7.7 gm/dL (13.0-17.5) L 01/14/19 07:21 Hct 25.8 % (39.0-53.0) L 01/14/19 07:21 MCV 101.5 fL (80.0-100.0) H 01/14/19 07:21 MCH 30.5 pg (25.0-35.0) 01/14/19 07:21 MCHC 30.0 g/dL (31.0-37.0) L 01/14/19 07:21 RDW 17.4 % (11.5-15.5) H 01/14/19 07:21 Plt Count 322 k/uL (150-450) 01/14/19 07:21 Neutrophils % 70 % 01/14/19 07:21 Neutrophils % (Manual) 74 % 01/11/19 03:54 Lymphocytes % 17 % 01/14/19 07:21 Lymphocytes % (Manual) 18 % 01/11/19 03:54 Monocytes % 8 % 01/14/19 07:21 Monocytes % (Manual) 6 % 01/11/19 03:54 Eosinophils % 2 % 01/14/19 07:21 Eosinophils % (Manual) 3 % 01/11/19 03:54 Basophils % 0 % 01/14/19 07:21 Metamyelocytes % 1 % 01/11/19 03:54 Neutrophils # 5.0 k/uL (1.3-7.7) 01/14/19 07:21 Neutrophils # (Manual) 8.44 k/uL (1.3-7.7) H 01/11/19 03:54 Lymphocytes # 1.2 k/uL (1.0-4.8) 01/14/19 07:21 Lymphocytes # (Manual) 2.05 k/uL (1.0-4.8) 01/11/19 03:54 Monocytes # 0.6 k/uL (0-1.0) 01/14/19 07:21 Monocytes # (Manual) 0.68 k/uL (0-1.0) 01/11/19 03:54 Eosinophils # 0.1 k/uL (0-0.7) 01/14/19 07:21 Eosinophils # (Manual) 0.34 k/uL (0-0.7) 01/11/19 03:54 Basophils # 0.0 k/uL (0-0.2) 01/14/19 07:21 Metamyelocytes # (Man) 0.11 k/uL (0) H 01/11/19 03:54 Nucleated RBCs 2 /100 WBC (0-0) H 01/11/19 03:54 Manual Slide Review Performed 01/11/19 03:54 Polychromasia Present 01/11/19 03:54 Hypochromasia Moderate 01/14/19 07:21 Poikilocytosis Slight 01/14/19 07:21 Anisocytosis Slight 01/14/19 07:21 Macrocytosis Moderate 01/14/19 07:21 PT 10.0 sec (9.0-12.0) 01/11/19 03:54 INR 0.9 (<1.2) 01/11/19 03:54 APTT 22.4 sec (22.0-30.0) 01/11/19 03:54 Sample Site lbrac 01/11/19 04:15 ABG pH 7.47 (7.35-7.45) H 01/11/19 04:15 ABG pCO2 46 mmHg (35-45) H 01/11/19 04:15 ABG pO2 56 mmHg (83-108) L* 01/11/19 04:15 ABG HCO3 34 mmol/L (21-25) H 01/11/19 04:15 ABG Total CO2 35 mmol/L (19-24) H 01/11/19 04:15 ABG O2 Saturation 88.4 % (94-97) L 01/11/19 04:15 ABG Base Excess 9.7 mmol/L 01/11/19 04:15 Nico Test yes 01/11/19 04:15 FiO2 40 % 01/11/19 04:15 Sodium 141 mmol/L (137-145) 01/14/19 07:21 Potassium 4.1 mmol/L (3.5-5.1) 01/14/19 07:21 Chloride 107 mmol/L (98-107) 01/14/19 07:21 Carbon Dioxide 32 mmol/L (22-30) H 01/14/19 07:21 Anion Gap 2 mmol/L 01/14/19 07:21 BUN 9 mg/dL (9-20) 01/14/19 07:21 Creatinine 0.88 mg/dL (0.66-1.25) 01/15/19 07:16 Est GFR (CKD-EPI)AfAm >90 (>60 ml/min/1.73 sqM) 01/15/19 07:16 Est GFR (CKD-EPI)NonAf 87 (>60 ml/min/1.73 sqM) 01/15/19 07:16 Glucose 98 mg/dL (74-99) 01/14/19 07:21 Lactic Ac Sepsis Rflx Y 01/11/19 04:40 Plasma Lactic Acid Isaac 1.1 mmol/L (0.7-2.0) 01/11/19 08:19 Calcium 8.8 mg/dL (8.4-10.2) 01/14/19 07:21 Magnesium 1.9 mg/dL (1.6-2.3) 01/13/19 05:42 Total Bilirubin 0.9 mg/dL (0.2-1.3) 01/11/19 03:54 AST 53 U/L (17-59) 01/11/19 03:54 ALT 30 U/L (21-72) 01/11/19 03:54 Alkaline Phosphatase 71 U/L (38-126) 01/11/19 03:54 Troponin I 0.095 ng/mL (0.000-0.034) H* 01/12/19 07:19 Total Protein 6.0 g/dL (6.3-8.2) L 01/11/19 03:54 Albumin 3.3 g/dL (3.5-5.0) L 01/11/19 03:54 Urine Color Light Yellow 01/11/19 07:28 Urine Appearance Clear (Clear) 01/11/19 07:28 Urine pH 5.0 (5.0-8.0) 01/11/19 07:28 Ur Specific [place] 1.009 (1.001-1.035) 01/11/19 07:28 Urine Protein Negative (Negative) 01/11/19 07:28 Urine Glucose (UA) Negative (Negative) 01/11/19 07:28 Urine Ketones Negative (Negative) 01/11/19 07:28 Urine Blood Negative (Negative) 01/11/19 07:28 Urine Nitrite Negative (Negative) 01/11/19 07:28 Urine Bilirubin Negative (Negative) 01/11/19 07:28 Urine Urobilinogen <2.0 mg/dL (<2.0) 01/11/19 07:28 Ur Leukocyte Esterase Negative (Negative) 01/11/19 07:28 Vancomycin Trough 14.9 ug/mL 01/15/19 15:18 C. difficile (EIA) Intrp Positive (Negative) A 01/12/19 11:24 Virus Source See Below 01/13/19 13:00 Viral Test See Below H 01/13/19 13:00 Virus Analysis Interp See Below 01/13/19 13:00 Microbiology Entire Visit 01/13/19 13:00 Bronchial Washings - Left Gram Stain - Final 01/13/19 13:00 Bronchial Washings - Left Bronchial Washings Culture - Final Linda albicans 01/11/19 06:45 Blood Blood Culture - Preliminary No Growth after 96 hours 01/11/19 03:54 Blood Blood Culture - Preliminary No Growth after 96 hours 01/13/19 13:00 Bronchial Washings - Left Acid Fast Bacilli Smear - Final 01/13/19 13:00 Bronchial Washings - Left Acid Fast Bacilli Culture - Preliminary 01/13/19 13:00 Bronchial Washings - Left Fungal Culture - Preliminary 01/11/19 07:28 Urine,Voided Urine Culture - Final Assessment and Plan (1) C. difficile colitis Narrative/Plan: 68-year-old male presents to Hospital feeling poorly with increasing weakness suffered a fall out of bed and appears to have a left ankle fracture orthopedic evaluation process. The patient did develop significant diarrhea which is new and given his recent course of multiple antibiotics including clindamycin C. diff testing was performed and is positive. The patient's chest x-rays reviewed and appears to more masslike process then pneumonic infiltration. Since his respiratory status feels considerably better will limit antimicrobial therapy as much as possible at this time. IV vancomycin has been started, cefepime was discontinued, oral vancomycin initiated treatment of the C. diff colitis and a hospitalized patien. Pulmonary critical care is following and they plan bronchoscopy tomorrow for evaluation and biopsy of the mass for diagnosis of this recurrent pneumonia and now appears to more masslike in nature. Review of the records reveal 11/30 there are bilateral infiltrates by 12/06 there was significantly better in 12/12 again had bilateral infiltrates that are somewhat improved today. With the active C. diff colitis will limit antibiotic therapy even further as he tolerates over the next day or 2. He is having generalized weakness. He is instructed in the importance of his protein intake to help his recovery. 01/15/2019 the patient is feeling considerably better after his bronchoscopy. His breathing is much improved. Other than some cytomegalovirus no other significant abnormalities were found at the time of his bronchoscopy. The needle biopsy is likely insufficient tissue and if there is any further difficulties with follow-up he may need further biopsy and intervention. 40 this time there is marked improvement. He is on intravenous vancomycin and oral vancomycin for his C. diff colitis. In January his vancomycin may be discontinued if there are no other positive cultures. Would complete his 10 day course of oral vancomycin for his C. diff colitis. We will attempt to limit other anti biotic therapy as much as possible given his colitis. He Damasoy is had a marked improvement with a therapeutic bronchoscopy. Current Visit: Yes Status: Acute Code(s): A04.72 - ENTEROCOLITIS D/T CLOSTRIDIUM DIFFICILE, NOT SPCF RECUR SNOMED Code(s): 962714845 (2) Recurrent pneumonia Current Visit: Yes Status: Acute Code(s): J18.9 - PNEUMONIA, UNSPECIFIED ORGANISM SNOMED Code(s): 576202876
[2019-01-16] MEDS: oxyCODONE-APAP 7.5-325MG 1 EACH TAB PO PRN ×3 (01:41→12:43)
[2019-01-16] MEDS: VANCOMYCIN ORAL SOLUTION 250 MG/5 ML BOTTLE PO SCH ×2 (05:35→11:20)
[2019-01-16] MEDS: CHERRY FLAVOR 60 ML BOTTLE PO SCH ×2 (05:36→11:20)
[2019-01-16 06:17] VITALS: BP 165/65; RESP 16; TEMP 97.6
[2019-01-16] MEDS: VANCOMYCIN 1,500 MG in SODIUM CHLORIDE 0.9% 250 ML IVPB SCH (07:33)
[2019-01-16] MEDS: PANTOPRAZOLE 40 MG TABLET PO SCH (07:33)
[2019-01-16] MEDS: predniSONE 20 MG TAB PO SCH (07:34)
[2019-01-16] MEDS: ASPIRIN 81 MG PO SCH (07:34)
[2019-01-16] MEDS: METOPROLOL TARTRATE 50 MG TAB PO SCH (07:34)
[2019-01-16] MEDS: APIXABAN 5 MG TAB PO SCH (07:34)
[2019-01-16] MEDS: DIGOXIN 250 MCG TAB PO SCH (07:34)
[2019-01-16] MEDS: SYMBICORT 160-4.5 MCG INHALER INHALATION SCH (07:36)
[2019-01-16] MEDS: IPRATROPIUM-ALBUTEROL 3 ML NEB INHALATION SCH ×2 (07:36→11:19)
[2019-01-16 08:31] LABS: African American GFR (CKD) >90 (>60 ml/min/1.73 sqM)
[2019-01-16 11:24] VITALS: PULSE 84
--- NOTE | 2019-01-16 12:21 | P.PN ---
Subjective Progress Note Date: 01/15/19 Principal diagnosis: Patient is a 68-year-old male with a history of recurrent pneumonia as last being Klebsiella ESBL on 12/21/18, paroxysmal atrial fibrillation on eliqu is, chronic hypoxic respiratory failure secondary to COPD on 4 L at home, and chronic diastolic congestive heart failure who presented to the emergency department with altered mentation. In the ER he underwent an extensive evaluation. He was found have a chest x-ray with worsening opacities, elevated white blood cell count, and a fever of 100.3. There is concern for recurrent pneumonia and he was started on Vanco and Zosyn. Arrangements were made for admission. Found have elevated lactic acid and elevated troponin. It was felt that his altered mentation was secondary to toxic metabolic encephalopathy. After arrival to the floor he started having left ankle pain. X-rays were completed which showed distal fibular fracture. He was seen by pulmonary who recommended a CT of the chest which demonstrated pneumonia versus mass like lesion and plan is for bronchoscopy on [place] 12. He was seen by cardiology who felt that his troponin elevation was secondary to his chronic hypoxemia. On trend he has chronically elevated troponins. He also was noted to be having diarrhea and C. diff came back positive. Oral vancomycin was started. Infectious disease was consulted with his recent history of ESBL Klebsiella. Patient seen and examined at bedside, complain of weakness and fatigue and patient continues on IV and oral vancomycin. The patient had bronchoscopy with BAL, bronchial wash cultures still pending. Patient feels much better and wants to go home stress breath improved and lung sounds much better. No acute events overnight Objective - Vital Signs Vital signs: Vital Signs Temp 97.6 F 01/16/19 05:43 Pulse 84 01/16/19 11:29 Resp 16 01/16/19 05:43 BP 165/65 01/16/19 05:43 Pulse Ox 97 01/16/19 05:43 Intake & Output 01/15/19 01/16/19 01/16/19 18:59 06:59 18:59 Intake Total 226 Output Total 200 Balance 226 -200 Weight 98 kg Intake: Oral 226 Output: Urine 200 Other: Voiding Method Urinal Urinal Urinal # Voids 1 1 # Bowel Movements 1 - Exam General: Nontoxic-appearing, no distress, appears older than stated age Derm: warm, dry Head: atraumatic, normocephalic, symmetric Eyes: EOMI, no lid lag, anicteric sclera Mouth: no lip lesion, mucus membranes moist Cardiovascular: S1S2 reg, no murmur, positive posterior tibial pulse bilateral, Lungs: Diminished in the bases but clear to auscultation, no accessory muscle use Abdominal: soft, nontender to palpation, no guarding, no appreciable organomegaly Ext: no gross muscle atrophy, trace edema left ankle, no contractures Neuro: CN II-XI grossly intact, no focal neuro deficits Psych: Alert, oriented, appropriate affect - Labs CBC & Chem 7: 01/14/19 07:21 01/16/19 07:30 Labs: Microbiology - Last 24 Hours (Table) 01/11/19 06:45 Blood Culture - Preliminary Blood No Growth after 120 hours 01/11/19 03:54 Blood Culture - Preliminary Blood No Growth after 120 hours 01/13/19 13:00 Gram Stain - Final Bronchial Washings - Left Bronchial Washings Culture - Final Linda albicans Assessment and Plan Assessment: Bilateral pulmonary infiltrates, possible multidrug resistant pneumonia with history of recent ESBL -Continue with the Vanco and cefepime, await infectious disease recommendations -Multiple masslike consolidations on CT chest. Plan is for bronchoscopy on 01/13/19. In light of patient's confusion on admission would consider MRI brain if bronchoscopy revealed any masslike lesions. -Pulmonary hygiene -Sputum culture -Bronchodilators -Pulmonary recommendations appreciated, case discussed with Radha Valenzuela EMERGENCY TECHNICIAN - no signs of adrenal insufficiency C. diff -Oral vancomycin 125 mg every 6 hours -Contact precautions -Appreciate ID recommendations, Dr. Saldana following Left distal fibular fracture -Orthopedic consultation -Walking boot ordered -Pain control will DC [place] and start Percocet Toxic metabolic encephalopathy, Improved -Limit pain medications as able -Off gabapentin, flexeril -Consider MRI brain if bronchoscopy reveals masslike lesion Chronic troponin elevation -Cardiology recommendations appreciated -No further investigation plan at this time Acute on chronic hypoxic respiratory failure -Wean O2 as able -Treatment as above COPD without exacerbation -Continue with bronchodilators -Pulmonary hygiene -Pulmonary recommendations appreciated we'll continue current treatment and wait for results from BAL to return Compensated diastolic congestive heart failure with ejection fraction 55-60% - continue with metoprolol - no on ACEI and will not start - P. A fib, on eliquis - metoprolol and diltiazem decreased due to hypotension - digoxin - follow tele - cardio recs Chronic: Chronic Anemia Osteoarthritis Hypertension BPH Hiatal hernia Irritable bowel syndrome Coronary artery disease GERD HLD Lactic acidosis, improved DVT prophylaxis: restart eliquis Today Discussed with: Patient, nursing, pulmonary Anticipated discharge:1-[address]: home
--- NOTE | 2019-01-16 12:29 | P.DS ---
Providers Date of admission: 01/11/19 05:34 Expected date of discharge: 01/16/19 Attending physician: Sierra Lindquist MD Consults: 01/11/19 17:38 Consult Physician Routine Consulting Provider: Lucas Saldana Consult Reason/Comments: recurrent pneumonia Do you want consulting provider notified?: Yes 01/11/19 17:40 Consult Physician Routine Consulting Provider: Jp Satniago Consult Reason/Comments: recurrent pneumonia Do you want consulting provider notified?: Yes 01/12/19 10:23 Consult Physician Routine Consulting Provider: Kaz Ponce Consult Reason/Comments: left distal fibular frature Do you want consulting provider notified?: Yes Primary care physician: [facility] Course: Discharge diagnoses Recurrent pneumonia with Bilateral pulmonary infiltrates C. diff colitis Left distal fibular fracture Toxic metabolic encephalopathy (resolved) Acute on chronic hypoxemic respiratory failure COPD without exacerbation Compensated diastolic CHF Paroxysmal A. fib on eliquis Patient is a 68-year-old male with a history of recurrent pneumonia as last being Klebsiella ESBL on 12/21/18, paroxysmal atrial fibrillation on eliquis, chronic hypoxic respiratory failure secondary to COPD on 4 L at home, and chronic diastolic congestive heart failure who presented to the emergency department with altered mentation. In the ER he underwent an extensive evaluation. He was found have a chest x-ray with worsening opacities, elevated white blood cell count, and a fever of 100.3. There is concern for recurrent pneumonia and he was started on Vanco and Zosyn. Arrangements were made for admission. Found have elevated lactic acid and elevated troponin. It was felt that his altered mentation was secondary to toxic metabolic encephalopathy. After arrival to the floor he started having left ankle pain. X-rays were completed which showed distal fibular fracture and the patient was seen by orthopedics who recommended a walking boot WBAT with recommended follow-up in 1 week. He was seen by pulmonary who recommended a CT of the chest which demonstrated pneumonia versus mass like lesion and bronchoscopy was performed and washings were only positive for Linda. He was seen by cardiology who felt that his troponin elevation was secondary to his chronic hypoxemia. On trend he has chronically elevated troponins. He also was noted to be having diarrhea and C. diff came back positive. Oral vancomycin was started. Infectious disease was consulted with his recent history of ESBL Klebsiella recommended continuing IV vancomycin in addition to oral vancomycin for C. diff colitis. With treatment the patient's breathing improved markedly after bronchoscopy, attempted needle biopsy likely did not obtain adequate specimen and the patient will need to follow-up with pulmonary for further plan of care. The patient was subsequently discharged to [facility] with a new prescription for oral vancomycin for another 4 days. This discharge process took approximately 35 minutes. Focused exam Respiratory: Slightly diminished in the bases, clear to auscultation, no wheezes or rhonchi, unlabored on 2 L nasal cannula Patient Condition at Discharge: Good Plan - Discharge Summary Discharge Rx Participant: No New Discharge Prescriptions: New Vancomycin Oral Solution 125 mg PO Q6HR 5 Days ml Continue Aspirin 81 mg PO DAILY Esomeprazole Magnesium [NexIUM] 40 mg PO DAILY Atorvastatin [Lipitor] 80 mg PO HS Gabapentin [Neurontin] 400 mg PO QID #120 cap HYDROcodone/APAP 10-325MG [Mehama 10-325] 1 tab PO Q6H PRN #30 tab PRN Reason: Pain Cyclobenzaprine [Flexeril] 10 mg PO QID Digoxin 250 mcg PO DAILY #10 tablet Diltiazem HCl 90 mg PO Q6H #40 tablet Apixaban [Eliquis] 5 mg PO BID #20 tab Tamsulosin HCl [Flomax] 0.4 mg PO HS #20 capsule Potassium Chloride ER [K-Dur 20] 20 meq PO BID #20 tab.er.prt Tiotropium 18 Mcg/Puff [Spiriva] 1 puff INHALATION RT-DAILY Metoprolol Tartrate [Lopressor] 100 mg PO TID predniSONE 20 mg PO DAILY Discharge Medication List Aspirin 81 mg PO DAILY 11/21/18 [History] Atorvastatin [Lipitor] 80 mg PO HS 11/21/18 [History] Esomeprazole Magnesium [NexIUM] 40 mg PO DAILY 11/21/18 [History] Gabapentin [Neurontin] 400 mg PO QID #120 cap 11/27/18 [Rx] HYDROcodone/APAP 10-325MG [Mehama 10-325] 1 tab PO Q6H PRN #30 tab 11/27/18 [Rx] Cyclobenzaprine [Flexeril] 10 mg PO QID 11/30/18 [History] Apixaban [Eliquis] 5 mg PO BID #20 tab 12/03/18 [Rx] Digoxin 250 mcg PO DAILY #10 tablet 12/03/18 [Rx] Diltiazem HCl 90 mg PO Q6H #40 tablet 12/03/18 [Rx] Potassium Chloride ER [K-Dur 20] 20 meq PO BID #20 tab.er.prt 12/03/18 [Rx] Tamsulosin HCl [Flomax] 0.4 mg PO HS #20 capsule 12/03/18 [Rx] Tiotropium 18 Mcg/Puff [Spiriva] 1 puff INHALATION RT-DAILY 12/06/18 [History] Metoprolol Tartrate [Lopressor] 100 mg PO TID 01/11/19 [History] predniSONE 20 mg PO DAILY 01/11/19 [History] Vancomycin Oral Solution 125 mg PO Q6HR 5 Days ml 01/16/19 [Rx] Follow up Appointment(s)/Referral(s): Meghna Hogue, [NON-STAFF] - As Needed David Suazo MD [Primary Care Provider] - 1-2 days Wes Gamez MD [STAFF PHYSICIAN] - 1 Week Activity/Diet/Wound Care/Special Instructions: Meghna
--- NOTE | 2019-01-16 13:56 | P.PN ---
Subjective Progress Note Date: 01/16/19 On 01/16/2019 the patient is feeling well. No complaints for now. This is the best he has felt in terms of his breathing. His diarrhea is also subsided. He has no specific complaints otherwise for now. No fever. No chills. No nausea. No vomiting. He is on oral vancomycin 125 every 6 hours. No other antibiotics. Prednisone burst taper is to be continued. Objective - Vital Signs Vital signs: Vital Signs Temp 97.6 F 01/16/19 05:43 Pulse 84 01/16/19 11:29 Resp 16 01/16/19 05:43 BP 165/65 01/16/19 05:43 Pulse Ox 97 01/16/19 05:43 Intake & Output 01/15/19 01/16/19 01/16/19 18:59 06:59 18:59 Intake Total 226 Output Total 200 Balance 226 -200 Weight 98 kg Intake: Oral 226 Output: Urine 200 Other: Voiding Method Urinal Urinal Urinal # Voids 1 1 # Bowel Movements 1 - Exam GENERAL EXAM: 68-year-old male patient, awake and alert, the 2 L nasal cannula with a pulse ox of 94%, comfortable in no apparent distress. HEAD: Normocephalic/atraumatic. EYES: Normal reaction of pupils, equal size. Conjunctiva pink, sclera white. NOSE: Clear with pink turbinates. THROAT: No erythema or exudates. NECK: No masses, no JVD, no thyroid enlargement, no adenopathy. CHEST: No chest wall deformity. Symmetrical expansion. LUNGS: Diminished breath sounds, with the expiratory wheezes and rhonchi at the bases, more so on the left CVS: Regular rate and rhythm, normal S1 and S2, no gallops, no murmurs, no rubs ABDOMEN: Soft, nontender. No hepatosplenomegaly, normal bowel sounds, no guarding or rigidity. EXTREMITIES: No clubbing, no edema, no cyanosis, 2+ pulses and upper and lower extremities. MUSCULOSKELETAL: Muscle strength and tone normal. SPINE: No scoliosis or deformity SKIN: No rashes CENTRAL NERVOUS SYSTEM: No focal deficits, tone is normal in all 4 extremities. Poor historian. PSYCHIATRIC: Unable to do due to the above-mentioned altered mentation - Labs CBC & Chem 7: 01/14/19 07:21 01/16/19 07:30 Labs: Microbiology - Last 24 Hours (Table) 01/11/19 06:45 Blood Culture - Preliminary Blood No Growth after 120 hours 01/11/19 03:54 Blood Culture - Preliminary Blood No Growth after 120 hours 01/13/19 13:00 Gram Stain - Final Bronchial Washings - Left Bronchial Washings Culture - Final Linda albicans Assessment and Plan Plan: 1 bilateral lower lobe pulmonary infiltrate, consider pneumonia especially the patient has had recurrent bouts of pneumonias in the past including infection with ESBL producing Klebsiella pneumoniae for which he has completed course of IV Invanz on outpatient basis. 2 acute febrile illness, consider pneumonia 3 acute on chronic hypoxic respiratory failure currently on 60 of oxygen nasal cannula 4 altered mental status, consider secondary to underlying metabolic encephalopathy 5 mild lactic acidosis, improved 6 troponin leak 7 chronic COPD with chronic hypoxic respiratory failure maintain oxygen at 4 L per minute is a cannula, the patient's based on FEV1 is 1.59 L which is 40% of predicted 8 history approximately atrial fibrillation rate is controlled for now on long- term antibiotic ventilation with Eliquis 9 history of CVA 10 history of hypertension 11 history of chronic diastolic heart failure which is well compensated for now 12 chronic anemia 13 fall with trauma to the ankle without any fracture and a Doppler of the lower extremities was negative 14 previous history of CVA/TIA 15 osteoarthritis 16 BPH 17 hiatal hernia 18 irritable bowel syndrome 19 coronary artery disease 20 [id number] smoking history quit in May 2018 21 C. diff colitis with secondary diarrhea currently on oral vancomycin Plan This is patient home on oral vancomycin. On assess is stable. Bronchoscopy was done and the cultures are all negative. No need for any further antibiotics regarding the lungs. He is recovering from his previous pneumonia.
== END 2019-01-16 13:41 | DRG 871 ==
LOC: EC 03:37 → 3SCARD 05:34 → 4MS4W 01-15 13:33
PROVIDERS: ADMIT Internal Medicine; ATTEND Internal Medicine
PROC: 0BC78ZZ Extirpation of Matter from Left Main Bronchus, Via Natural or Artificial Opening Endoscopic (ICD-10-PCS; principal; 2019-01-13 12:00)
PROC: 0BD88ZX Extraction of Left Upper Lobe Bronchus, Via Natural or Artificial Opening Endoscopic, Diagnostic (ICD-10-PCS; 2019-01-13 12:00)
DX: A41.59 Other Gram-negative sepsis (principal); G92 Toxic encephalopathy; J96.21 Acute and chronic respiratory failure with hypoxia; J15.0 Pneumonia due to Klebsiella pneumoniae; E27.40 Unspecified adrenocortical insufficiency; E87.2 Acidosis; I50.32 Chronic diastolic (congestive) heart failure; A04.72 Enterocolitis due to Clostridium difficile, not specified as recurrent; T17.590A Other foreign object in bronchus causing asphyxiation, initial encounter; J84.9 Interstitial pulmonary disease, unspecified; I11.0 Hypertensive heart disease with heart failure; I48.0 Paroxysmal atrial fibrillation; E86.0 Dehydration; J44.9 Chronic obstructive pulmonary disease, unspecified; D64.9 Anemia, unspecified; S82.832A Other fracture of upper and lower end of left fibula, initial encounter for closed fracture; Y95 Nosocomial condition; K21.9 Gastro-esophageal reflux disease without esophagitis; E78.5 Hyperlipidemia, unspecified; M19.90 Unspecified osteoarthritis, unspecified site; N40.0 Benign prostatic hyperplasia without lower urinary tract symptoms; K44.9 Diaphragmatic hernia without obstruction or gangrene; I25.10 Atherosclerotic heart disease of native coronary artery without angina pectoris; K58.0 Irritable bowel syndrome with diarrhea; G89.29 Other chronic pain; M54.9 Dorsalgia, unspecified; M79.604 Pain in right leg; M79.605 Pain in left leg; H93.13 Tinnitus, bilateral; H91.90 Unspecified hearing loss, unspecified ear; R77.8 Other specified abnormalities of plasma proteins; E66.9 Obesity, unspecified; Z68.32 Body mass index [BMI] 32.0-32.9, adult; Z99.81 Dependence on supplemental oxygen; Z79.01 Long term (current) use of anticoagulants; Z79.82 Long term (current) use of aspirin; Z79.84 Long term (current) use of oral hypoglycemic drugs; Z79.899 Other long term (current) drug therapy; Z86.73 Personal history of transient ischemic attack (TIA), and cerebral infarction without residual deficits; Z87.01 Personal history of pneumonia (recurrent); Z86.19 Personal history of other infectious and parasitic diseases; Z96.652 Presence of left artificial knee joint; Z98.1 Arthrodesis status; Z98.890 Other specified postprocedural states; Z87.891 Personal history of nicotine dependence; Z98.42 Cataract extraction status, left eye; Z98.41 Cataract extraction status, right eye; Z80.1 Family history of malignant neoplasm of trachea, bronchus and lung; W06.XXXA Fall from bed, initial encounter; Y92.003 Bedroom of unspecified non-institutional (private) residence as the place of occurrence of the external cause
CPT/HCPCS: 31624; 31629; 36415; 36600; 71045; 71046; 71260; 80048; 80053; 80202; 81003; 82565; 82805; 83605; 83735; 84484; 85025; 85027; 85610; 85730; 87040; 87070; 87086; 87102; 87116; 87205; 87206; 87252; 87324; 87496; 87498; 87502; 87529; 87634; 87798; 88108; 88305; 93005; 94640; 94760; 96365; 96366; 96367; 96375; 99285

== ENCOUNTER 2019-02-02 11:05 | Emergency (ER) | payer MEDICARE, BC ==
--- NOTE | 2019-02-02 11:25 | ED ---
General Adult HPI - General Chief complaint: Upper Respiratory Infection Stated complaint: fever-sent by Time Seen by Provider: 02/02/19 11:20 Source: patient, family, RN notes reviewed Mode of arrival: wheelchair Limitations: no limitations - History of Present Illness Initial comments: Patient is a pleasant 68-year-old male presenting to the emergency Department with cough and difficulty breathing. Symptoms have been occurring for the past couple of days. Patient has occasional yellow sputum. Patient does have history of chronic lung problems associated with COPD. Patient has not been taking his nebulizer recently. Patient did go to his primary care physician's office today, Dr. Kaminski. Patient was noticed to have fever and there was concern for possible pneumonia and patient was advised come to emergency department. Patient did have fractured ankle approximately a month ago and has been having leg pain since that time. - Related Data Home Medications Medication Instructions Recorded Confirmed Aspirin 81 mg PO DAILY 11/21/18 02/02/19 Atorvastatin [Lipitor] 80 mg PO HS 11/21/18 02/02/19 Cyclobenzaprine [Flexeril] 10 mg PO HS 11/30/18 02/02/19 Tiotropium 18 Mcg/Puff [Spiriva] 1 puff INHALATION RT-DAILY 12/06/18 02/02/19 Metoprolol Tartrate [Lopressor] 100 mg PO TID 01/11/19 02/02/19 predniSONE 20 mg PO DAILY 01/11/19 02/02/19 Omeprazole [PriLOSEC] 20 mg PO DAILY 02/02/19 02/02/19 Previous Rx's Medication Instructions Recorded Apixaban [Eliquis] 5 mg PO BID #20 tab 12/03/18 Digoxin 250 mcg PO DAILY #10 tablet 12/03/18 Diltiazem HCl 90 mg PO Q6H #40 tablet 12/03/18 Potassium Chloride ER [K-Dur 20] 20 meq PO BID #20 tab.er.prt 12/03/18 Tamsulosin HCl [Flomax] 0.4 mg PO HS #20 capsule 12/03/18 Gabapentin [Neurontin] 400 mg PO QID #120 cap 01/16/19 HYDROcodone/APAP 10-325MG [[place] 1 tab PO Q6H PRN #20 tab 01/16/19 10-325] Levofloxacin [Levaquin] 500 mg PO DAILY #6 tab 02/02/19 Allergies Allergy/AdvReac Type Severity Reaction Status Date / Time montelukast sodium AdvReac Itching Verified 02/02/19 11:38 [From Woody] Review of Systems ROS Statement: Those systems with pertinent positive or pertinent negative responses have been documented in the HPI. ROS Other: All systems not noted in ROS Statement are negative. Constitutional: Reports: as per HPI, fever Eyes: Denies: eye pain ENT: Denies: ear pain Respiratory: Reports: cough, dyspnea Cardiovascular: Denies: chest pain Endocrine: Reports: fatigue Gastrointestinal: Denies: abdominal pain Genitourinary: Denies: dysuria Musculoskeletal: Denies: back pain Skin: Denies: rash Neurological: Denies: weakness Past Medical History Past Medical History: Coronary Artery Disease (CAD), Chest Pain / Angina, COPD, CVA/TIA, Eye Disorder, GERD/Reflux, Hyperlipidemia, Hypertension, Osteoarthritis (OA), Prostate Disorder Additional Past Medical History / Comment(s): BPH, 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 History of Any Multi-Drug Resistant Organisms: ESBL Date of last positivie culture/infection: 12/23/18 MDRO Source:: Sputum MDRO ESBL Past Surgical History: Adenoidectomy, Back Surgery, Heart Catheterization, Hernia Repair, Joint Replacement, Orthopedic Surgery, Tonsillectomy Additional Past Surgical History / Comment(s): L knee replacement, back surgery x3-failed fusion and 2 rods in lower back, L/R cataract surgery, bilat. rib removal (cervical), carpal tunnel R wrist, colonoscopy, L elbow surgery, abdominal hernia repair, 3 R inguinal hernia repairs, L inguinal hernia repair, rectal cystectomy.pain pump(ms) implanted removed 11/06/2018 Past Anesthesia/Blood Transfusion Reactions: Previous Problems w/ Anesthesia Additional Past Anesthesia/Blood Transfusion Reaction / Comment(s): With first surgery became belligerent when waking up. Past Psychological History: No Psychological Hx Reported Smoking Status: Former smoker Past Alcohol Use History: None Reported, Occasional Past Drug Use History: None Reported - Past Family History Mother Family Medical History: No Reported History Additional Family Medical History / Comment(s): Mother was healthy and lived to be 88 or 89yrs old. Father Family Medical History: Cancer Additional Family Medical History / Comment(s): Father of lung cancer in his early 70's. General Exam Limitations: no limitations General appearance: alert, in no apparent distress Head exam: Present: atraumatic Eye exam: Present: normal appearance, PERRL ENT exam: Present: normal oropharynx Neck exam: Present: normal inspection Respiratory exam: Present: wheezes, rhonchi, decreased breath sounds Cardiovascular Exam: Present: regular rate, normal rhythm GI/Abdominal exam: Present: soft. Absent: tenderness Extremities exam: Present: pedal edema (+1 bilateral), calf tenderness (Left- sided) Neurological exam: Present: alert Psychiatric exam: Present: normal affect, normal mood Skin exam: Present: normal color Course Vital Signs 02/02/19 02/02/19 02/02/19 11:13 13:00 13:11 Temperature 99.7 F H Pulse Rate 68 68 70 Respiratory 18 Rate Blood Pressure 148/65 O2 Sat by Pulse 93 L Oximetry 02/02/19 02/02/19 02/02/19 14:09 14:21 14:30 Temperature Pulse Rate 74 74 Respiratory 20 Rate Blood Pressure 125/56 O2 Sat by Pulse 95 Oximetry 02/02/19 15:03 Temperature 98.8 F Pulse Rate Respiratory Rate Blood Pressure O2 Sat by Pulse Oximetry - Reevaluation(s) Reevaluation #1: 02/02/19 14:09 Case was discussed with Dr. Arenas who is familiar with this patient. He is covering for Dr. Kaminski. He does recommend obtaining computed tomography scan of the chest and repeat nebulizer treatment and IV steroids and will evaluate the patient for possible admission at that point. EKG Findings - EKG Comments: EKG Findings:: Normal sinus rhythm 69. MS 190. QRS 88. QT 360. QTC 385. No rmal axis. Normal QRS. No acute ST change. Medical Decision Making - Medical Decision Making Case was discussed with Dr. Arenas who did come evaluate the patient. Patient is refusing admission. Patient still refuses admission with my reevaluation. Patient does feel better. Pulse ox is 93%. Vital signs otherwise stable. Patient and family updated on results and plan. They are aware of concern for probable mass in the lungs. Patient did have BA last week last week and results are still pending. Advised close follow-up with primary care physician and Dr. Bravo who Patient has previously seen. - Lab Data Result diagrams: 02/02/19 12:25 02/02/19 12:25 Lab Results 02/02/19 02/02/19 02/02/19 Range/Units 12:25 12:25 12:25 WBC 15.2 H (3.8-10.6) k/uL RBC 2.93 L (4.30-5.90) m/uL Hgb 9.0 L (13.0-17.5) gm/dL Hct 29.0 L (39.0-53.0) % MCV 99.0 (80.0-100.0) fL MCH 30.9 (25.0-35.0) pg MCHC 31.2 (31.0-37.0) g/dL RDW 17.1 H (11.5-15.5) % Plt Count 321 (150-450) k/uL Neutrophils % 87 % Lymphocytes % 6 % Monocytes % 5 % Eosinophils % 1 % Basophils % 0 % Neutrophils # 13.1 H (1.3-7.7) k/uL Lymphocytes # 1.0 (1.0-4.8) k/uL Monocytes # 0.7 (0-1.0) k/uL Eosinophils # 0.1 (0-0.7) k/uL Basophils # 0.0 (0-0.2) k/uL Hypochromasia Marked Poikilocytosis Slight Anisocytosis Slight Macrocytosis Slight PT (9.0-12.0) sec INR (<1.2) APTT (22.0-30.0) sec Sodium 138 (137-145) mmol/L Potassium 4.8 (3.5-5.1) mmol/L Chloride 102 (98-107) mmol/L Carbon Dioxide 28 (22-30) mmol/L Anion Gap 8 mmol/L BUN 12 (9-20) mg/dL Creatinine 0.77 (0.66-1.25) mg/dL Est GFR (CKD-EPI)AfAm >90 (>60 ml/min/1.73 sqM) Est GFR (CKD-EPI)NonAf >90 (>60 ml/min/1.73 sqM) Glucose 160 H (74-99) mg/dL Plasma Lactic Acid Isaac 3.1 H* (0.7-2.0) mmol/L Calcium 9.5 (8.4-10.2) mg/dL Total Bilirubin 0.5 (0.2-1.3) mg/dL AST 25 (17-59) U/L ALT 20 L (21-72) U/L Alkaline Phosphatase 98 (38-126) U/L Total Protein 6.0 L (6.3-8.2) g/dL Albumin 3.4 L (3.5-5.0) g/dL Urine Color Urine Appearance (Clear) Urine pH (5.0-8.0) Ur Specific [place] (1.001-1.035) Urine Protein (Negative) Urine Glucose (UA) (Negative) Urine Ketones (Negative) Urine Blood (Negative) Urine Nitrite (Negative) Urine Bilirubin (Negative) Urine Urobilinogen (<2.0) mg/dL Ur Leukocyte Esterase (Negative) 02/02/19 02/02/19 Range/Units 12:25 12:58 WBC (3.8-10.6) k/uL RBC (4.30-5.90) m/uL Hgb (13.0-17.5) gm/dL Hct (39.0-53.0) % MCV (80.0-100.0) fL MCH (25.0-35.0) pg MCHC (31.0-37.0) g/dL RDW (11.5-15.5) % Plt Count (150-450) k/uL Neutrophils % % Lymphocytes % % Monocytes % % Eosinophils % % Basophils % % Neutrophils # (1.3-7.7) k/uL Lymphocytes # (1.0-4.8) k/uL Monocytes # (0-1.0) k/uL Eosinophils # (0-0.7) k/uL Basophils # (0-0.2) k/uL Hypochromasia Poikilocytosis Anisocytosis Macrocytosis PT 9.4 (9.0-12.0) sec INR 0.9 (<1.2) APTT 23.2 (22.0-30.0) sec Sodium (137-145) mmol/L Potassium (3.5-5.1) mmol/L Chloride (98-107) mmol/L Carbon Dioxide (22-30) mmol/L Anion Gap mmol/L BUN (9-20) mg/dL Creatinine (0.66-1.25) mg/dL Est GFR (CKD-EPI)AfAm (>60 ml/min/1.73 sqM) Est GFR (CKD-EPI)NonAf (>60 ml/min/1.73 sqM) Glucose (74-99) mg/dL Plasma Lactic Acid Isaac (0.7-2.0) mmol/L Calcium (8.4-10.2) mg/dL Total Bilirubin (0.2-1.3) mg/dL AST (17-59) U/L ALT (21-72) U/L Alkaline Phosphatase (38-126) U/L Total Protein (6.3-8.2) g/dL Albumin (3.5-5.0) g/dL Urine Color Light Yellow Urine Appearance Clear (Clear) Urine pH 6.0 (5.0-8.0) Ur Specific [place] 1.008 (1.001-1.035) Urine Protein Negative (Negative) Urine Glucose (UA) Negative (Negative) Urine Ketones Negative (Negative) Urine Blood Negative (Negative) Urine Nitrite Negative (Negative) Urine Bilirubin Negative (Negative) Urine Urobilinogen <2.0 (<2.0) mg/dL Ur Leukocyte Esterase Negative (Negative) - Radiology Data Radiology results: report reviewed (Ultrasound negative for DVT. Computed tomography scan of the chest shows redemonstrated suggesting lung cancer left suprahilar region measuring 4.2 cm versus previous 2.7 cm. Increasing. Bronchovascular soft tissue density. Mediastinal lymphadenopathy. Satellite nodule. Possible pneumonitis versus mild venous congestion.), image reviewed (Chest x-ray shows left hilar mass with associated adenopathy is indeterminate. There may be a postobstructive atelectasis or pneumonia.) Disposition Clinical Impression: COPD exacerbation, Lung mass Disposition: HOME SELF-CARE Additional Instructions: Please follow-up with primary care physician and Dr. Bravo this week. Please have both of them review CT results. These return for difficulty in breathing, fevers, worsening symptoms or other concerns. Please use her nebulizer every 6 hours. Prescriptions: Levofloxacin [Levaquin] 500 mg PO DAILY #6 tab Is patient prescribed a controlled substance at d/c from ED?: No Referrals: David Suazo MD [Primary Care Provider] - 1-2 days Time of Disposition: 15:44
[2019-02-02] MEDS ORDERED: ACETAMINOPHEN TAB 500 MG TAB PO STA (11:39)
[2019-02-02] MEDS ORDERED: IPRATROPIUM-ALBUTEROL 3 ML NEB INHALATION STA ×2 (11:41→13:55)
[2019-02-02 13:04] LABS: Anisocytosis Slight; Basophils % (A) 0 %; Eosinophils # (A) 0.1 k/uL (0-0.7); Eosinophils % (A) 1 %; Hypochromasia Marked; Lymphocytes % (A) 6 %; MCH 30.9 pg (25.0-35.0); MCHC 31.2 g/dL (31.0-37.0); Macrocytosis Slight; Mean Platelet Volume 7.4; Monocytes # (A) 0.7 k/uL (0-1.0); Monocytes % (A) 5 %; Neutrophils # (A) 13.1 k/uL (1.3-7.7); Neutrophils % (A) 87 %; Platelet Count 321 k/uL (150-450); Poikilocytosis Slight; RBC 2.93 m/uL (4.30-5.90); RDW 17.1 % (11.5-15.5); WBC 15.2 k/uL (3.8-10.6)
[2019-02-02 13:16] LABS: INR 0.9 (<1.2); Prothrombin Time 9.4 sec (9.0-12.0)
[2019-02-02 13:17] LABS: ALT 20 U/L (21-72); AST 25 U/L (17-59); African American GFR (CKD) >90 (>60 ml/min/1.73 sqM); Albumin 3.4 g/dL (3.5-5.0); Alkaline Phosphatase 98 U/L (38-126); Anion Gap 8 mmol/L; Blood Urea Nitrogen 12 mg/dL (9-20); Calcium 9.5 mg/dL (8.4-10.2); Carbon Dioxide 28 mmol/L (22-30); Chloride 102 mmol/L (98-107); Glucose 160 mg/dL (74-99); Partial Thromboplastin Time 23.2 sec (22.0-30.0); Potassium 4.8 mmol/L (3.5-5.1); Sodium 138 mmol/L (137-145); Total Bilirubin 0.5 mg/dL (0.2-1.3)
--- NOTE | 2019-02-02 13:30 | XR ---
EXAMINATION TYPE: XR chest 2V DATE OF EXAM: 02/02/2019 COMPARISON: Prior chest x-ray 01/12/2019 HISTORY: Fever TECHNIQUE: Frontal and lateral views of the chest are obtained. FINDINGS: The abnormal density in the left upper lobe has increased in the interval, there is left h ilar prominence. No pneumothorax or pleural effusion. Prominent lung volumes with flattening the jerilyn diaphragms suggest underlying COPD. IMPRESSION: Left hilar mass with associated adenopathy is indeterminate, there may be postobstructive atelectasis or pneumonia which has progressed in the interval.
[2019-02-02 13:32] LABS: Appearance,Urine Clear (Clear); Bilirubin,Urine Negative (Negative); Blood,Urine Negative (Negative); Color,Urine Light Yellow; Glucose,Urine (UA) Negative (Negative); Ketones,Urine Negative (Negative); Leukocyte Esterase,Urine Negative (Negative); Nitrite,Urine Negative (Negative); Protein,Urine Negative (Negative); Specific Gravity,Urine 1.008 (1.001-1.035); Urobilinogen,Urine <2.0 mg/dL (<2.0)
[2019-02-02] MEDS ORDERED: RX INFO: IV CONTRAST WAS GIVEN 1 EACH MISC MISCELLANE PRN (13:54)
[2019-02-02] MEDS ORDERED: methylPREDNISolone SOD SUCCI 125 MG/2 ML VIAL IV STA (13:55)
--- NOTE | 2019-02-02 14:11 | US ---
EXAMINATION TYPE: US venous doppler duplex LE LT DATE OF EXAM: 02/02/2019 2:01 PM COMPARISON: NONE CLINICAL HISTORY: Pain. pain, no h/o dvt SIDE PERFORMED: Left TECHNIQUE: The lower extremity deep venous system is examined utilizing real time linear array sonog ingrid with graded compression, doppler sonography and color-flow sonography. VESSELS IMAGED: External Iliac Vein (EIV) Common Femoral Vein Deep Femoral Vein Greater Saphenous Vein * Femoral Vein Popliteal Vein Small Saphenous Vein * Proximal Calf Veins (* superficial vessels) Left Leg: Appears negative for DVT IMPRESSION: 1. No diagnostic evidence of DVT as visualized.
--- NOTE | 2019-02-02 15:10 | CT ---
EXAMINATION TYPE: CT chest w con DATE OF EXAM: 02/02/2019 COMPARISON: 01/11/2019 HISTORY: 68-year-old male Fever, dyspnea, pneumonia-per patient TECHNIQUE: Contiguous axial scanning of the chest after the administration of 100 mL of Isovue 300. Coronal/sagittal reconstructions performed. CT DLP: 459.2mGycm. Automatic exposure control utilized for a dose reduction. FINDINGS: Heart normal size without pericardial effusion. Great vessel calcifications are present. Ectasia aortic root at 3.5 cm. Mild atherosclerotic arch calcifications. Conventional arch vessel bra nching anatomy. Redemonstrated mediastinal lymphadenopathy, largest nodes in the AP window region measuring up to 2.4 cm and left tracheobronchial angle region measuring 1.8 cm. Subcarinal lymph nodes measure 1.5 cm an d right paratracheal lymph nodes measure up to 1.1 cm short axis. These are slightly larger from 01/11. Redemonstrated left hilar/suprahilar mass, slightly larger in the interval, currently measuring 4.2 c m versus approximately 2.7 cm, previously. This continues to partially encase the distal left mainste m but also encases the left upper lobe bronchus and branches of the left pulmonary artery. A peripheral left midlung upper lobe pulmonary nodule measures 1.9 cm, relatively unchanged. There is new contiguous. Bronchovascular soft tissue thickening extending up into the left upper lobe that could represent disease progression. Some septal lines are present in the left upper lobe that could represent some venous congestion or m ild pneumonitis. A couple subtle 3 mm pulmonary nodule anterior right midlung not clearly seen previously on axial johan ge 39 Mild centrilobular emphysema. Bibasilar scarring or atelectasis improved from prior. No pleural effusion. Stable 1.5 cm left adrenal nodule. Bones: Bridging anterior endplate spondylosis mid to lower thoracic spine suggesting dish. IMPRESSION: 1. Redemonstrated findings highly suggestive of lung cancer in the left suprahilar region encasing th e left upper lobe bronchus and some of the pulmonary artery branches. This measures approximately 4.2 cm versus 2.7 cm, previously. There is increasing peribronchovascular soft tissue density extending throughout the left upper lobe, again, suggestive of disease progression. 2. Metastatic mediastinal lymphadenopathy measuring up to 2.4 cm also slightly increased in size. 3. A 1.9 cm satellite nodule on the left is unchanged. A couple subtle 3 mm pulmonary nodules on the right not clearly seen previously. 4. Mild septal lines and patchy density in the left upper lobe shows improvement from prior exam and could represent residual pneumonitis or mild venous congestion.
[2019-02-02] MEDS ORDERED: LEVOFLOXACIN 750 MG TAB PO STA (15:44)
[2019-02-02 15:52] VITALS: BP 142/57; PULSE 97; RESP 20; TEMP 98.7
== END 2019-02-02 16:02 | disposition home or self-care (01) ==
LOC: EC 11:05
DX: J44.1 Chronic obstructive pulmonary disease with (acute) exacerbation (principal); R91.8 Other nonspecific abnormal finding of lung field; I25.119 Atherosclerotic heart disease of native coronary artery with unspecified angina pectoris; I10 Essential (primary) hypertension; M19.90 Unspecified osteoarthritis, unspecified site; E78.5 Hyperlipidemia, unspecified; K21.9 Gastro-esophageal reflux disease without esophagitis; M79.606 Pain in leg, unspecified; Z87.891 Personal history of nicotine dependence; Z79.52 Long term (current) use of systemic steroids; Z79.01 Long term (current) use of anticoagulants; Z79.82 Long term (current) use of aspirin; Z79.899 Other long term (current) drug therapy; Z88.8 Allergy status to other drugs, medicaments and biological substances; Z53.8 Procedure and treatment not carried out for other reasons; Z86.73 Personal history of transient ischemic attack (TIA), and cerebral infarction without residual deficits; Z95.5 Presence of coronary angioplasty implant and graft; Z96.652 Presence of left artificial knee joint; Z96.698 Presence of other orthopedic joint implants; Z87.81 Personal history of (healed) traumatic fracture; Z80.1 Family history of malignant neoplasm of trachea, bronchus and lung
CPT/HCPCS: 99284; 96374; 36415; 94640 ×2; 93005; 80053; 83605; 85025; 85610; 85730; 81003; 87040; 87086; 71046; 93971; 71260; J2930; Q9967

== ENCOUNTER 2019-02-18 08:34 | Inpatient (IN) | payer MEDICARE, BC ==
[2019-02-16 16:13] VITALS: BMI 34.4
[~2019-02-18 08:34] MED LIST: ALBUTEROL NEB (CONC) 2.5 MG/0.5 ML INHALATION ONE; ATROPINE SULFATE 0.4 MG/ML 1 ML VIAL IM ONE; LACTATED RINGERS 1,000 ML IV SCH; LIDOCAINE 1% 20 ML VIAL (10MG/ML) FOR IV START INTRADERMA PRN; LIDOCAINE 2% (PF) 20 MG/ML 5 ML VIAL INHALATION ONE; LIDOCAINE VISCOUS 300 MG/15 ML CUP MUCOUS MEM ONE; ONDANSETRON 4 MG/2 ML VIAL IVP ONE
[2019-02-18 09:05] LABS: Glucose,Whole Blood 117 mg/dL (75-99)
[2019-02-18] MEDS ORDERED: LACTATED RINGERS 1,000 ML IV ONE ×2 (09:07→12:12)
[2019-02-18] MEDS ORDERED: HYDROmorphone 0.5 MG/0.5 ML SYRINGE IVP ONE ×2 (09:50→10:18)
--- NOTE | 2019-02-18 10:57 | CT ---
EXAMINATION TYPE: CT Chest wo con Veran Protocol DATE OF EXAM: 02/18/2019 COMPARISON: 02/02/2019 HISTORY: Veran procedure CT DLP: 645 mGycm, Automated exposure control for dose reduction was used. CONTRAST: Performed injected with 0 mL of Isovue 300. TECHNIQUE: Axial images were obtained at 5 mm thick sections. Reconstructed images are reviewed on [email or web address] computer in the coronal plane. FINDINGS: Portion of the thyroid visualized is normal. Infiltrate is along the perihilar region. There is a 2.1 x 1.7 cm nodule adjacent to the major fissur e within the left upper lung, series 6 image 31. There is a 0.5 cm faint nodule within the right midd le lobe. A left apical changes are present adjacent to the major fissure. The large consolidation wit hin the left suprahilar lingular region appears to be somewhat broken up over the interval. Underlyin g mass medially is not excluded. A 4.1 x 3.9 cm left infrahilar mass adjacent to the mediastinal border and left main pulmonary artery is again evident. Multiple enlarged mediastinal lymph nodes are present. This would include a 1.0 cm subcarinal lymph n ode, a 1.3 cm lymph node just anterior to the sravan. An enlarged multiple aortopulmonic window lymph nodes, the largest measuring 2.4 cm and 2.2 cm. A pretracheal lymph node measures 2.1 cm. Multiple b orderline 1.0-1.1 cm superior mediastinal lymph nodes are present. The ascending aorta diameter at the level of the main pulmonary artery is 3.5 cm. The main pulmonary artery diameter at the bifurcation is 3.1 cm. Moderate Coronary artery calcification is present. Limited CT sections are obtained through the upper abdomen. Abdomen is essentially unremarkable. IMPRESSIONS: 1. CT for bronchial navigation. 2. Multiple enlarged mediastinal lymph nodes. 3. Left infrahilar mass with a peripheral 2 cm nodule in the left left upper lung field. 4. There is some improvement of a left perihilar consolidation which could be some postobstructive pn eumonia. Underlying mass is not excluded.
[2019-02-18] MEDS ORDERED: ROCURONIUM BROMIDE 10 MG/ML 10 ML VIAL IV ONE (11:08)
[2019-02-18] MEDS ORDERED: SUCCINYLCHOLINE CHLORIDE VIAL 200 MG/10 ML VIAL IV ONE (11:08)
[2019-02-18] MEDS ORDERED: NEOSTIGMINE 1 MG/ML 10 ML VIAL ONE (11:08)
[2019-02-18] MEDS ORDERED: GLYCOPYRROLATE 0.2 MG/ML 2 ML VIAL ONE (11:08)
[2019-02-18] MEDS ORDERED: LIDOCAINE 1% INJ 10MG/ML (20 ML MDV) ONE (11:08)
[2019-02-18] MEDS ORDERED: ePHEDrine SULFATE/0.9% NACL/PF 50 MG/5 ML SYRINGE IV ONE (11:08)
[2019-02-18] MEDS ORDERED: PROPOFOL 10 MG/ML 20 ML VIAL IV ONE ×2 (11:08→12:25)
[2019-02-18] MEDS ORDERED: SUCCINYLCHOLINE CHLORIDE 100 MG/5 ML SYR IV ONE (12:28)
--- NOTE | 2019-02-18 12:33 | PCN ---
PROCEDURE NOTE PROCEDURE: Electromagnetic navigational bronchoscopy. PREOPERATIVE DIAGNOSIS: Left upper lobe mass, rule out cancer. POSTOPERATIVE DIAGNOSIS: Left upper lobe mass, rule out cancer. Patient's procedure was done in the operating room #8. OPERATORS: Dr. Bravo and Radha Valenzuela. ANESTHESIA: Anesthesia provided general anesthesia. There was informed consent and universal timeout. I did speak to the patient and his family prior to the procedure. After the patient was under general anesthesia, the bronchoscope was inserted through the bronchoscope adapter connected to the endotracheal tube. We went down to the left lung. Under electromagnetic navigational guidance, we did sampling of the left upper lobe mass. We did needle biopsies, transbronchial and endobronchial biopsies. We brushed the area. We washed the area. We got three samples done. Pathology was in the room with us. Unfortunately, he could not make the call in regards to whether or not the samples provided with malignancy. The rest of the materials will be sent to the laboratory for analysis. Dr. Hameed was the pathologist. There was no immediate complication. The patient tolerated the procedure well. The patient will be recovered and extubated. Myself and Dr. Valenzuela will talk to the daughter and . in the waiting room. There was no immediate complication. MMODL / IJN: [id number] /
[2019-02-18] MEDS ORDERED: MIDAZOLAM (PF) 2 MG/2 ML VIAL IVP ONE ×2 (13:04→13:11)
--- NOTE | 2019-02-18 13:10 | XR ---
EXAMINATION TYPE: XR chest 1V portable DATE OF EXAM: 02/18/2019 COMPARISON: Chest CT and chest x-ray February 02, 2019. HISTORY: Post intubation and OG tube placement. Bronchoscopy earlier today. TECHNIQUE: Single AP portable frontal view of the chest is obtained. FINDINGS: There is new endotracheal tube terminating at inferior clavicular level, approximately 4 t o 5 cm above the sravan. There is new orogastric tube projecting below diaphragm. There is persistent left hilar masslike consolidation or neoplasm. There is background chronic emphys ematous change. There is persistent nodule lateral left mid lung. Right lung shows emphysematous sah ge. No pleural effusion or pneumothorax bilaterally. Left basilar linear scarring and/or atelectasis. Cardiac silhouette size is stable and upper limits of normal. Multilevel spurring in the spine is se en. IMPRESSION: 1. New ET and OGT satisfactory in position. 2. Emphysematous change with left midlung nodule and suprahilar masslike consolidation redemonstrated . Persistent left basilar linear atelectasis and/or scarring. No pneumothorax after bronchoscopy.
[2019-02-18 13:15] LABS: Allen Test Performed? Yes
[2019-02-18 13:16] LABS: ABG PCO2 62 mmHg (35-45); ABG PH 7.29 (7.35-7.45)
[2019-02-18 13:17] LABS: ABG Base Excess 3.3 mmol/L; ABG HCO3 30 mmol/L (21-25); ABG PO2 197 mmHg (83-108); ABG TCO2 32 mmol/L (19-24)
[2019-02-18] MEDS ORDERED: HYDROmorphone 1 MG/ML 1 ML SYRINGE IVP ONE (13:40)
[2019-02-18] MEDS ORDERED: EMPTY BAG 1 BAG with PROPOFOL 1,000 MG IV SCH (13:45)
[2019-02-18 14:26] LABS: Glucose,Whole Blood 203 mg/dL (75-99)
[2019-02-18] MEDS ORDERED: IPRATROPIUM-ALBUTEROL 3 ML NEB INHALATION PRN (14:55)
[2019-02-18 16:16] LABS: Anisocytosis Slight; HCT 25.3 % (39.0-53.0); Hypochromasia Marked; MCH 27.8 pg (25.0-35.0); MCHC 29.4 g/dL (31.0-37.0); MCV 94.4 fL (80.0-100.0); Mean Platelet Volume 6.9; Platelet Count 282 k/uL (150-450); RBC 2.68 m/uL (4.30-5.90); RDW 16.7 % (11.5-15.5); WBC 10.9 k/uL (3.8-10.6)
[2019-02-18] MEDS: IPRATROPIUM-ALBUTEROL 3 ML NEB INHALATION SCH ×2 (16:25→19:09)
[2019-02-18 16:31] LABS: HGB 7.5 gm/dL (13.0-17.5)
[2019-02-18 16:35] LABS: Potassium 5.8 mmol/L (3.5-5.1)
[2019-02-18 16:36] LABS: Albumin 3.1 g/dL (3.5-5.0); Calcium 9.7 mg/dL (8.4-10.2); Total Bilirubin 0.5 mg/dL (0.2-1.3); Total Protein 5.4 g/dL (6.3-8.2)
[2019-02-18 16:43] LABS: Appearance,BF Blood Tinged; Nucleated Cells, Body Fluid 500 /uL; RBC, Body Fluid 47000 /uL
[2019-02-18 16:45] LABS: Mononuclear WBC,Body Fluid 55 %; Polynuclear WBC,Body Fluid 45 %; Total Cells Counted,Body Fluid 100
[2019-02-18] MEDS ORDERED: ACETAMINOPHEN TAB 325 MG TAB PO PRN (16:55)
[2019-02-18] MEDS ORDERED: NALOXONE 0.4 MG/ML 1 ML VIAL IV PRN (16:55)
--- NOTE | 2019-02-18 16:55 | P.HPIM ---
History of Present Illness H&P Date: 02/18/19 Chief Complaint: acute hypoxic respiratory failure with hypercapnia 68-year-old male with PMH of paroxysmal A. fib on Eliquis, history of CAD/CVA, CHF, chronic hypoxic respiratory failure secondary to COPD on 4 L home O2 presents to [facility] for elective bronchoscopy. CT of the chest prior to bronchoscopy shows multiple enlarged mediastinal lymph nodes. Left infrahilar mass with a peripheral 2 cm nodule in the left upper lung field. There is also some left perihilar consolidation which could represent postobstructive pneumonia, mass not excluded. Patient underwent bronchoscopy and multiple biopsies of the left upper lobe mass was obtained. Pathology could not determine whether it was malignant at that time. Postextubation, patient had a low O2 saturation, anesthesia was called and patient was reintubated. Patient was then transferred to the ICU. patient showed considerable improvement after transfer to ICU. He was extubated around 4 PM. Patient was seen and examined. patient does not remember anything after his bronchoscopy. Patient states that he is currently feeling well, slightly short of breath. He reports cough that has been on and off over the past 4-5 days. he denies any headache, lower extremity edema currently, nausea or vomiting, fever or chills, chest pain, palpitations, changes in urination or bowel habits. No changes in appetite or weight. He denies any dizziness, numbness/weakness/tingling of the extremities. Review of Systems Pertinent positives and negatives as discussed in HPI, a complete review of systems was performed and all other systems are negative. Past Medical History Past Medical History: Coronary Artery Disease (CAD), Chest Pain / Angina, COPD, CVA/TIA, GERD/Reflux, Hyperlipidemia, Hypertension, Osteoarthritis (OA), Prostate Disorder Additional Past Medical History / Comment(s): spouse states "a plastic tube was left in his throat when he was transferred by EMS and has recurrent respiratory infections", BPH, vertigo due to inner ear problem, states has 30% blockage in his heart, TIA, hiatal hernia, IBS, bilateral tinnitis,emphysema,diverticulitis History of Any Multi-Drug Resistant Organisms: C-DIFF, ESBL Date of last positivie culture/infection: 12/23/18 MDRO Source:: Sputum MDRO ESBL,c-diff beginning of January 2019,currently symptom free Past Surgical History: Adenoidectomy, Back Surgery, Heart Catheterization, Hernia Repair, Joint Replacement, Orthopedic Surgery, Tonsillectomy Additional Past Surgical History / Comment(s): L knee replacement, back surgery x2-failed fusion and 2 rods in lower back, L/R cataract surgery, bilat. rib removal (cervical), carpal tunnel R wrist, colonoscopy, L elbow surgery, abdominal hernia repair, 3 R inguinal hernia repairs, L inguinal hernia repair, rectal cystectomy.pain pump(ms) implanted removed 11/06/2018 Past Anesthesia/Blood Transfusion Reactions: Previous Problems w/ Anesthesia Additional Past Anesthesia/Blood Transfusion Reaction / Comment(s): With first surgery became belligerent when waking up. Past Psychological History: No Psychological Hx Reported Additional Psychological History / Comment(s): Pt resides with his spouse. He uses a cane to ambulate. has nebulizer He drives. 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 Is no longer smoking. No animals in the home Smoking Status: Former smoker Past Alcohol Use History: None Reported Additional Past Alcohol Use History / Comment(s): Pt started smoking in 1962 and quit in May of 2018. Past Drug Use History: None Reported - Past Family History Mother Family Medical History: No Reported History Additional Family Medical History / Comment(s): Mother was healthy and lived to be 88 or 89yrs old. Father Family Medical History: Cancer Additional Family Medical History / Comment(s): Father of lung cancer in his early 70's. Medications and Allergies Home Medications Medication Instructions Recorded Confirmed Type RX: Aspirin 81 mg PO DAILY 11/21/18 02/18/19 History RX: Atorvastatin [Lipitor] 80 mg PO HS 11/21/18 02/18/19 History RX: Cyclobenzaprine [Flexeril] 10 mg PO HS 11/30/18 02/18/19 History RX: Apixaban [Eliquis] 5 mg PO BID #20 tab 12/03/18 02/18/19 Rx RX: Digoxin 250 mcg PO DAILY #10 tablet 12/03/18 02/18/19 Rx RX: Diltiazem HCl 90 mg PO Q6H #40 tablet 12/03/18 02/18/19 Rx RX: Potassium Chloride ER [K-Dur 20 meq PO BID #20 tab.er.prt 12/03/18 02/18/19 Rx 20] RX: Tamsulosin HCl [Flomax] 0.4 mg PO HS #20 capsule 12/03/18 02/18/19 Rx RX: Tiotropium 18 Mcg/Puff 1 puff INHALATION RT-DAILY 12/06/18 02/18/19 History [Spiriva] RX: Metoprolol Tartrate [Lopressor] 100 mg PO Q8H 01/11/19 02/18/19 History RX: predniSONE 20 mg PO QAM 01/11/19 02/18/19 History RX: Gabapentin [Neurontin] 400 mg PO QID #120 cap 01/16/19 02/18/19 Rx RX: HYDROcodone/APAP 10-325MG 1 tab PO Q6H PRN #20 tab 01/16/19 02/18/19 Rx [[place] 10-325] Omeprazole [PriLOSEC] 20 mg PO QAM 02/02/19 02/18/19 History L.acidoph,Paracasei, B.lactis 1 each PO DAILY 02/16/19 02/18/19 History [Probiotic] Levofloxacin [Levaquin] 500 mg PO DAILY 02/16/19 02/18/19 History Multivitamins, Thera [Multivitamin 1 tab PO DAILY 02/16/19 02/18/19 History (formulary)] Allergies Allergy/AdvReac Type Severity Reaction Status Date / Time montelukast sodium AdvReac Itching Verified 02/18/19 14:45 [From [facility]] Physical Exam Vitals: Vital Signs Temp Pulse Pulse Resp BP Pulse Ox 02/18/19 13:55 71 18 139/74 99 02/18/19 13:45 97 F L 72 16 162/77 100 02/18/19 13:15 71 24 133/63 100 02/18/19 13:00 73 26 H 139/66 100 02/18/19 12:18 63 12 155/67 02/18/19 09:23 72 02/18/19 09:15 68 02/18/19 08:50 97.8 F 69 18 149/66 97 Intake and Output 02/18/19 02/18/19 02/18/19 06:59 14:59 22:59 Intake Total 1200 Balance 1200 Intake: IV 1200 General: [non toxic], [receiving a breathing treatment], [appears at stated age] Derm: [warm], [dry] Head: [atraumatic], [normocephalic], [symmetric] Eyes: [EOMI], [no lid lag], [anicteric sclera] Mouth: [no lip lesion], [mucus membranes moist] Cardiovascular: [S1S2 reg], [no murmur], [positive DP pulse bilateral], Lungs: [coarse breath sounds bilateral], [no rhonchi, no rales] , [no accessory muscle use] Abdominal: [soft], [ nontender to palpation], [no guarding], [no appreciable organomegaly] Ext: [no gross muscle atrophy], [no edema], [no contractures] Neuro: [ CN II-XI grossly intact], [no focal neuro deficits] Psych: [Alert], [oriented], [appropriate affect] Results CBC & Chem 7: 02/18/19 16:03 02/18/19 16:03 Labs: Abnormal Lab Results - Last 24 Hours (Table) 02/18/19 02/18/19 02/18/19 Range/Units 09:03 13:08 14:15 ABG pH 7.29 L (7.35-7.45) ABG pCO2 62 H (35-45) mmHg ABG pO2 197 H (83-108) mmHg ABG HCO3 30 H (21-25) mmol/L ABG Total CO2 32 H (19-24) mmol/L ABG O2 Saturation 100.0 H (94-97) % POC Glucose (mg/dL) 117 H 203 H (75-99) mg/dL Thrombosis Risk Factor Assmnt - Choose All That Apply Any of the Below Risk Factors Present?: Yes Each Factor Represents 1 point: Abnormal pulmonary function (COPD), Medical pt on bed rest, Minor surgery planned, Obesity (BMI >25), Serious lung disease incl. pneumonia (< 1month) Other Risk Factors: Yes Each Risk Factor Represents 2 Points: Age 61-74 years Other congenital or acquired thrombophilia - If yes, enter type in comment: No Thrombosis Risk Factor Assessment Total Risk Factor Score: 7 Thrombosis Risk Factor Assessment Level: High Risk Assessment and Plan Assessment: Acute on chronic hypoxic respiratory failure secondary to COPD exacerbation COPD exacerbation Pulmonary nodule Diastolic CHF Atrial fibrillation History of CVA/CAD Hypertension Obesity ABG shows pH 7.29, pCO2 62, HCO3 of 30. Failed extubation post bronchoscopy. Recently had 10 day course of Levaquin, does not require antibiotics. Plans: Optimize COPD medications. O2 per NC/nonrebreather/BiPAP as needed to maintain an O2 saturation greater than 92%. Will follow pulmonology recommendations. Plans: Continue Pulmicort. DuoNeb 4 times a day scheduled and as needed for shortness of breath and wheezing. Continue formoterol. Appreciate pulmonology recommendations. Underwent bronchoscopy with multiple biopsies taken today. Plans: Follow-up pathology likely in the outpatient setting. 12/21/2018 Echocardiogram shows EF 55-60% with mild concentric LVH. Plans: Continue metoprolol. Patient appears euvolemic at this time. Rate controlled. Plans: Continue diltiazem and metoprolol. Rhythm control with digoxin. Eliquis for anticoagulation. Stable. Plans: Continue aspirin and Lipitor. BP 121/51. Plans: Continue diltiazem and metoprolol. Monitor vitals, adjust medications as necessary. BMI 34.4. Plans: Structured weight loss program. DVT prophylaxis: [Eliquis] Discussed with: [patient and ] Anticipated discharge: [1-2 days] Anticipated discharge place: [home] A total of [45] minutes was spent on the care of this complex patient more than 50% of the time was spent in counseling and care coordination. Patient names his Minerva decision-maker in the case that he can't make decisions for himself. Patient elects to be full code at this time. Patient is admitted failed extubation after elective bronchoscopy. Currently extubated. Pulmonology on board. Patient is pending clinical improvement.
[2019-02-18] MEDS: SODIUM CHLORIDE 0.9% 1,000 ML IV SCH (17:22)
[2019-02-18] MEDS: GABAPENTIN 400 MG CAP PO SCH ×2 (18:13→21:26)
[2019-02-18] MEDS: DILTIAZEM ORAL 30 MG TAB PO SCH ×2 (18:13→21:25)
[2019-02-18] MEDS: METOPROLOL TARTRATE 50 MG TAB PO SCH (18:13)
[2019-02-18] MEDS ORDERED: INSULIN REGULAR 100 UNIT/ML VIAL IV ONE (18:30)
[2019-02-18] MEDS ORDERED: DEXTROSE 50% SYRINGE 50 ML IVP STA (18:30)
[2019-02-18] MEDS ORDERED: DEXTROSE 10 % IN WATER 250 ML IV STA (18:40)
[2019-02-18] MEDS: BUDESONIDE 1 MG/2 ML NEBU INHALATION SCH (19:09)
[2019-02-18] MEDS: FORMOTEROL FUMARATE 20 MCG/2 ML NEBU INHALATION SCH (19:09)
[2019-02-18] MEDS ORDERED: TAMSULOSIN 0.4 MG CAP.ER.24H PO SCH (21:00)
[2019-02-18] MEDS ORDERED: ATORVASTATIN 80 MG TAB PO SCH (21:00)
[2019-02-18] MEDS: APIXABAN 5 MG TAB PO SCH (21:26)
--- NOTE | 2019-02-18 22:05 | CONS ---
CONSULTATION This is a 68-year-old gentleman with a history of multiple medical problems, including COPD and a mass in his left chest. He also suffers from hyperlipidemia, among other things. Anyway, the patient had a navigational bronchoscopy today. The process itself was uneventful. He had biopsies, brushes, washes, endobronchial and needle biopsies of the left upper lobe. The procedure was done in the operating room under general anesthesia and we did electromagnetic navigational bronchoscopy. The procedure itself went well. He was stable throughout the procedure without any complications. There was no bleeding. A postoperative chest x-ray was fine. Apparently when they went to go extubate him, he apparently was very lethargic and sleepy and his saturations dropped down into the 60s and 70s; and they went ahead and re-intubated the patient. He is currently up here in the ICU. He is on the volume assist-control mode. His rate is 18. His tidal volume is 450, FiO2 60% and PEEP of 5. His vital signs are stable. Blood gases were previously done on different settings, and I adjusted the ventilator accordingly. He is on some propofol at 10-20 mcg/kg/minute. He is getting a basic IV at a low rate of 20 mL/hour. There are no other medications ordered on him. Anyway, the patient will be a woken up from his propofol. We will do a daily interruption and see if he is ready for a spontaneous breathing trial. If he wakes up and he is calm, we will put him on PSV of 8, CPAP of 5, get a full set of weaning parameters, including a rapid shallow breathing index and a cuff leak test and decide whether or not we can extubate the patient. He did recently have PFTs in my office. The PFTs were excellent. His ALLERGIES include SINGULAIR. HOME MEDICATIONS: His home medications include: 1. Prilosec. 2. Prednisone 20 mg a day. 3. Levaquin. 4. Probiotic. 5. Multiple vitamins. 6. Neurontin. 7. Cardizem. 8. Digoxin. 9. Flexeril. 10.Lipitor. 11.Aspirin. 12.Eliquis. 13.Spiriva. 14.Flomax. 15.Potassium chloride. 16.Metoprolol. 17.Lynco. MEDICAL PROBLEM LIST: Medical problem list includes: 1. Hyperlipidemia. 2. Hypertension. 3. CAD. 4. COPD. 5. Gastroesophageal reflux disease. 6. Irritable bowel syndrome. 7. BPH. 8. DJD. 9. Cerebellar stroke. 10.Left upper lobe lung mass. SURGICAL HISTORY: Surgical history includes, among other things: 1. Back surgery. 2. Hernia repair. 3. Bilateral cataract surgery. 4. Left knee replacement. The patient was last seen in the office on February 05, 2019. At that time he was doing relatively well. The lesion in the left chest had increased in size. For that reason, he was set up for navigational bronchoscopy. The patient did have a bronchoscopy previously with Dr. Santiago, but it was nondiagnostic. SOCIAL HISTORY: Positive for previous heavy tobacco use. He does not smoke currently. FAMILY HISTORY: Positive for mother with arthritis and father with chronic lung disease. OCCUPATIONAL HISTORY: Noncontributory. REVIEW OF SYSTEMS: Review of systems cannot be obtained currently. He is currently sedated and mechanically ventilated. PHYSICAL EXAMINATION: VITAL SIGNS: Current vital signs include temperature 97, heart rate 71, respiratory rate 18, blood pressure 139/74. Saturations are 99% on 60% and 5 of PEEP. GENERAL: He appears in no acute distress. Currently sedated. HEENT EXAMINATION: Grossly unremarkable. There is an orally placed endotracheal tube and NG tube. NECK: Supple. Full range of motion. No adenopathy or thyromegaly. Neck veins are flat. CARDIOVASCULAR EXAMINATION: Regular rhythm and rate. Heart rate about 72 beats per minute. S1, S2 normal. No S3, S4 or murmur. Heart sounds are distant. LUNGS: Mostly clear breath sounds. A few scattered rhonchi in the left mid upper lung zone. No wheezes. No crackles. ABDOMEN: Soft. Bowel sounds are heard. EXTREMITIES: Intact. There is no significant edema. No cyanosis or clubbing. SKIN: Without rash. NEUROLOGIC: Neurologic examination could not be adequately assessed. LABS: No labs have yet been done. He did have a prior gas showing a pO2 of 197, pCO2 of 62 and a pH of 7.29. This was on volume assist-control mode, rate of 10, tidal volume 500, 100%, 5 of PEEP. Adjustments were made as per my previously noted comments. IMAGING: Chest x-ray today shows some changes, primarily in his left mid lung, with some consolidation and masslike area. This is again where we did the procedure. There was no pneumothorax. Medications are reviewed. ASSESSMENT: 1. Acute hypoxemic respiratory failure following navigational bronchoscopy, likely secondary to prolonged anesthetic effect. 2. Status post navigational bronchoscopy for left upper lobe lung mass, with reasonable sampling. 3. History of chronic obstructive pulmonary disease. 4. History of hyperlipidemia. 5. History of hypertension. 6. History of coronary artery disease. 7. History of gastroesophageal reflux disease. 8. History of irritable bowel syndrome. 9. Benign prostatic hypertrophy. 10.History of cerebellar stroke. 11.History of deafness. 12.History of atrial fibrillation with rapid ventricular response. PLAN: Will let him off of sedation. Will let him wake up. Will put him on PSV 8, CPAP of 5. Will get some blood work, including a CBC and comprehensive metabolic profile. Will look at his medications and add back some updrafts. Hopeful extubation today or at the very latest tomorrow morning. Will continue to follow closely. Prognosis is guarded. I did talk to his . SUMAN / DANIAN: [id number] /
--- NOTE | 2019-02-18 22:43 | XR ---
EXAM: XR Chest, 1 View CLINICAL HISTORY: ITS.REASON XR Reason: SOB TECHNIQUE: Frontal view of the chest. COMPARISON: No relevant prior studies available. FINDINGS: Lungs: Mixed interstitial/alveolar disease involving the left upper lobe. No other consolidation. Pleural space: No pleural effusion or pneumothorax. Heart: No cardiomegaly. Mediastinum: Unremarkable. Bones/joints: Unremarkable. Vasculature: After several calcifications of the thoracic aortic arch. Lymph nodes: Question left hilar reactive adenopathy. IMPRESSION: Findings raise concern for left upper lobe pneumonia. Suggest follow- up in 8 weeks to document stability.
[2019-02-18 22:49] LABS: ABG Base Excess 4.6 mmol/L; ABG HCO3 29 mmol/L (21-25); ABG Oxygen Saturation 91.9 % (94-97); ABG PCO2 43 mmHg (35-45); ABG PH 7.44 (7.35-7.45); ABG PO2 63 mmHg (83-108); ABG TCO2 30 mmol/L (19-24); Allen Test Performed? Yes
[2019-02-19] MEDS: METOPROLOL TARTRATE 50 MG TAB PO SCH ×2 (00:29→08:08)
[2019-02-19] MEDS: HYDROcodone/APAP 5-325MG 1 EACH TAB PO PRN ×3 (00:31→13:04)
[2019-02-19] MEDS: DILTIAZEM ORAL 30 MG TAB PO SCH ×2 (05:09→11:20)
[2019-02-19] MEDS: SODIUM CHLORIDE 0.9% 1,000 ML IV SCH (05:09)
[2019-02-19 05:44] LABS: Anisocytosis Slight; Basophils % (A) 0 %; Eosinophils # (A) 0.2 k/uL (0-0.7); Eosinophils % (A) 1 %; HCT 24.1 % (39.0-53.0); HGB 7.3 gm/dL (13.0-17.5); Hypochromasia Marked; Lymphocytes # (A) 1.5 k/uL (1.0-4.8); Lymphocytes % (A) 12 %; MCHC 30.4 g/dL (31.0-37.0); MCV 92.1 fL (80.0-100.0); Mean Platelet Volume 7.5; Monocytes % (A) 8 %; Neutrophils # (A) 9.4 k/uL (1.3-7.7); Neutrophils % (A) 77 %; Platelet Count 288 k/uL (150-450); Poikilocytosis Slight; RBC 2.62 m/uL (4.30-5.90); RDW 16.2 % (11.5-15.5); WBC 12.2 k/uL (3.8-10.6)
[2019-02-19 05:54] LABS: Calcium 9.9 mg/dL (8.4-10.2); Potassium 4.6 mmol/L (3.5-5.1)
[2019-02-19] MEDS: IPRATROPIUM-ALBUTEROL 3 ML NEB INHALATION SCH ×3 (07:29→15:12)
[2019-02-19] MEDS: BUDESONIDE 1 MG/2 ML NEBU INHALATION SCH (07:29)
[2019-02-19] MEDS: FORMOTEROL FUMARATE 20 MCG/2 ML NEBU INHALATION SCH (07:29)
[2019-02-19] MEDS: APIXABAN 5 MG TAB PO SCH (08:08)
[2019-02-19] MEDS: GABAPENTIN 400 MG CAP PO SCH ×2 (08:08→13:02)
[2019-02-19 08:24] VITALS: TEMP 98.1
[2019-02-19] MEDS ORDERED: DIGOXIN 250 MCG TAB PO SCH (09:00)
[2019-02-19] MEDS ORDERED: ASPIRIN 81 MG PO SCH (09:00)
[2019-02-19] MEDS ORDERED: FUROSEMIDE 10 MG/ML 2 ML VIAL IV ONE (09:05)
--- NOTE | 2019-02-19 09:15 | PN ---
PROGRESS NOTE DATE OF SERVICE: 02/19/2019 A 68-year-old male, postop day #1 status post electromagnetic navigational bronchoscopy for a left upper lobe lung lesion for suspected lung cancer. His specimens are currently pending. He had a very suspicious bronchoscopy with endobronchial disease. Anyway, he was initially extubated in the recovery area that needed re-intubation because of low saturations. The patient was extubated later in the day at 4:00 pm. He had a pretty uneventful night. His saturations have been borderline. On 8 L high flow, saturations are in the low 90s. Anyway, that is being titrated down. He is typically on 2 L at home. He had an uneventful late afternoon and evening last night. He is also getting saline at [facility]. The plan today would be able to get him extubated if possible. Again, he had excellent weaning parameters and blood gases and so forth prior to extubation yesterday. The procedure itself went very well. Chest x-ray shows some infiltrate/abnormalities in the left upper lobe, which is where we did our sampling. PHYSICAL EXAMINATION: Current vital signs are reviewed. They include a temperature of 98.1, heart rate 70, respiratory rate mid 20s, blood pressure 116/47 mean 74 L, saturation 94%. Appears in no acute distress. HEENT: Examination is grossly unremarkable. Nasal O2 in place. NECK: Supple. Full range of motion. No adenopathy. CARDIOVASCULAR: Examination reveals regular rhythm and rate. S1, S2 normal. No S3, S4, or murmur. LUNGS: Reveal a few scattered coarse rhonchi. Breath sounds are diminished. His chest sounds congested. No wheezing. No crackles. Adventitious lung sounds are more prominent on forced maneuver. ABDOMEN: Soft. Bowel sounds are heard. EXTREMITIES: Intact. No cyanosis, clubbing, or edema. SKIN: Without rash. I's and O's are reviewed. LABS: Reviewed. White count 12.2, hemoglobin 7.3, hematocrit 24.1, platelet count 288,000. Sodium 136, potassium 4.6, chloride is 99, CO2 is 31. BUN and creatinine were 22 and 1.21. Anion gap of 6. The rest of his labs look okay. Microbiology is pending or negative. Sampling from yesterday's procedure is still all pending. We did have the pathologist at standby. He looked at the needle biopsies and they were nondiagnostic according to him. Medications are reviewed. The patient is on appropriate medications. Chest x-rays reviewed. ASSESSMENT: 1. Postoperative day #1, status post electromagnetic navigational bronchoscopy for left upper lobe lesion, suspecting lung cancer. 2. Postoperative hypoxemic respiratory failure, requiring brief intubation and mechanical ventilation. 3. Status post extubation on February, at 4 p.m. 4. History of chronic obstructive pulmonary disease. 5. Chronic hypoxemic respiratory failure. 6. Hyperlipidemia. 7. Hypertension. 8. Coronary artery disease. 9. Gastroesophageal reflux disease. 10.Irritable bowel syndrome. 11.Benign prostatic hypertrophy. 12.History of cerebellar stroke. 13.Deafness. 14.History of atrial fibrillation with rapid ventricular rate. PLAN: The patient's O2 will be weaned down. Once he gets down to his usual dose, will discharge him home. Specimens from the bronchoscopy are currently pending. Will see him in the office. I did talk to him this morning and his yesterday. No additional recommendations are made. Prognosis is guarded. Will continue to await his pathologic specimen. MMODL / IJN: [id number] /
--- NOTE | 2019-02-19 13:35 | PN ---
PROGRESS NOTE I saw the pathologist, Dr. Hameed, in the hallway. He was the one who was present during the electromagnetic navigational bronchoscopy performed by myself yesterday. He was looking at the Brannon needle biopsies yesterday. In the operating room, he could not make a call of cancer. 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 I will await to talk to the patient and his when they come to see me back in the office. No additional recommendations at this time. He will need referral to Oncology as well. MMODL / IJN: [id number] /
--- NOTE | 2019-02-19 15:22 | P.DS ---
Providers Date of admission: 02/18/19 13:24 Expected date of discharge: 02/19/19 Attending physician: Avery Bravo Consults: 02/18/19 13:30 Consult Physician Stat Consulting Provider: Avery Bravo Consult Reason/Comments: CRITICAL CARE MANAGEMENT Do you want consulting provider notified?: Already Contacted Primary care physician: [facility] Course: 68-year-old male with PMH of paroxysmal A. fib on Eliquis, history of CAD/CVA, CHF, chronic hypoxic respiratory failure secondary to COPD on 4 L home O2 presents to [facility] for elective bronchoscopy. CT of the chest prior to bronchoscopy shows multiple enlarged mediastinal lymph nodes. Left infrahilar mass with a peripheral 2 cm nodule in the left upper lung field. There is also some left perihilar consolidation which could represent postobstructive pneumonia, mass not excluded. Patient underwent bronchoscopy and multiple biopsies of the left upper lobe mass was obtained. Pathology could not determine whether it was malignant at that time. Postextubation, patient had a low O2 saturation, anesthesia was called and patient was reintubated. Patient was then transferred to the ICU. Patient showed considerable improvement after transfer to ICU. He was extubated around 4 PM. Patient was seen and examined. patient does not remember anything after his bronchoscopy. Patient states that he is currently feeling well, slightly short of breath. He reports cough that has been on and off over the past 4-5 days. he denies any headache, lower extremity edema currently, nausea or vomiting, fever or chills, chest pain, palpitations, changes in urination or bowel habits. No changes in appetite or weight. He denies any dizziness, numbness/weakness/tingling of the extremities. ABG showed pH 7.29, pCO2 of 52, HCO3 of 30. There is noted the patient recently had a ten-day course of Levaquin so he did not require antibiotics during this hospitalization. Patient's COPD medication was optimized including DuoNeb's and Pulmicort. Otherwise, his home medications were resumed. Pulmonology was consulted and recommended discharging the patient home. Patient was to follow- up in the outpatient setting for bronchoscopy biopsy results. Patient was seen and examined. No acute events overnight. Patient reports breathing returning back to baseline. He complains of back pain, chronic in nature. He denies any chest pain or palpitations. No nausea or vomiting. No fever or chills. General: [non toxic], [receiving a breathing treatment], [appears at stated age] Derm: [warm], [dry] Head: [atraumatic], [normocephalic], [symmetric] Eyes: [EOMI], [no lid lag], [anicteric sclera] Mouth: [no lip lesion], [mucus membranes moist] Cardiovascular: [S1S2 reg], [no murmur], [positive DP pulse bilateral], Lungs: [coarse breath sounds bilateral, better aeration], [no rhonchi, no rales] , [no accessory muscle use] Abdominal: [soft], [ nontender to palpation], [no guarding], [no appreciable organomegaly] Ext: [no gross muscle atrophy], [no edema], [no contractures] Neuro: [no focal neuro deficits] Psych: [Alert], [oriented], [appropriate affect] Acute on chronic hypoxic respiratory failure secondary to COPD exacerbation COPD exacerbation Pulmonary nodule Diastolic CHF Atrial fibrillation History of CVA/CAD Hypertension Obesity ABG shows pH 7.29, pCO2 62, HCO3 of 30. Failed extubation post bronchoscopy. Recently had 10 day course of Levaquin, does not require antibiotics. Plans: Optimize COPD medications. O2 per NC/nonrebreather/BiPAP as needed to maintain an O2 saturation greater than 92%. Will follow pulmonology recommendations. Plans: Continue Pulmicort. DuoNeb 4 times a day scheduled and as needed for shortness of breath and wheezing. Continue formoterol. Appreciate pulmonology recommendations. Underwent bronchoscopy with multiple biopsies taken today. Plans: Follow-up pathology likely in the outpatient setting. 12/21/2018 Echocardiogram shows EF 55-60% with mild concentric LVH. Plans: Continue metoprolol. Patient appears euvolemic at this time. Rate controlled. Plans: Continue diltiazem and metoprolol. Rhythm control with digoxin. Eliquis for anticoagulation. Stable. Plans: Continue aspirin and Lipitor. BP 125/60. Plans: Continue diltiazem and metoprolol. Monitor vitals, adjust medications as necessary. BMI 54. Plans: Structured weight loss program. Patient was cleared by pulmonology for discharge. Pertinent Studies: Chest CT, chest x-ray Procedures: Bronchoscopy Patient Condition at Discharge: Fair Plan - Discharge Summary Discharge Rx Participant: No New Discharge Prescriptions: Continue Aspirin 81 mg PO DAILY Atorvastatin [Lipitor] 80 mg PO HS Cyclobenzaprine [Flexeril] 10 mg PO HS Digoxin 250 mcg PO DAILY #10 tablet Diltiazem HCl 90 mg PO Q6H #40 tablet Apixaban [Eliquis] 5 mg PO BID #20 tab Tamsulosin HCl [Flomax] 0.4 mg PO HS #20 capsule Potassium Chloride ER [K-Dur 20] 20 meq PO BID #20 tab.er.prt Tiotropium 18 Mcg/Puff [Spiriva] 1 puff INHALATION RT-DAILY Metoprolol Tartrate [Lopressor] 100 mg PO Q8H predniSONE 20 mg PO QAM Gabapentin [Neurontin] 400 mg PO QID #120 cap HYDROcodone/APAP 10-325MG [[place] 10-325] 1 tab PO Q6H PRN #20 tab PRN Reason: Pain Omeprazole [PriLOSEC] 20 mg PO QAM Multivitamins, Thera [Multivitamin (formulary)] 1 tab PO DAILY Levofloxacin [Levaquin] 500 mg PO DAILY L.acidoph,Paracasei, B.lactis [Probiotic] 1 each PO DAILY Discharge Medication List Aspirin 81 mg PO DAILY 11/21/18 [History] Atorvastatin [Lipitor] 80 mg PO HS 11/21/18 [History] Cyclobenzaprine [Flexeril] 10 mg PO HS 11/30/18 [History] Apixaban [Eliquis] 5 mg PO BID #20 tab 12/03/18 [Rx] Digoxin 250 mcg PO DAILY #10 tablet 12/03/18 [Rx] Diltiazem HCl 90 mg PO Q6H #40 tablet 12/03/18 [Rx] Potassium Chloride ER [K-Dur 20] 20 meq PO BID #20 tab.er.prt 12/03/18 [Rx] Tamsulosin HCl [Flomax] 0.4 mg PO HS #20 capsule 12/03/18 [Rx] Tiotropium 18 Mcg/Puff [Spiriva] 1 puff INHALATION RT-DAILY 12/06/18 [History] Metoprolol Tartrate [Lopressor] 100 mg PO Q8H 01/11/19 [History] predniSONE 20 mg PO QAM 01/11/19 [History] Gabapentin [Neurontin] 400 mg PO QID #120 cap 01/16/19 [Rx] HYDROcodone/APAP 10-325MG [[place] 10-325] 1 tab PO Q6H PRN #20 tab 01/16/19 [Rx] Omeprazole [PriLOSEC] 20 mg PO QAM 02/02/19 [History] L.acidoph,Paracasei, B.lactis [Probiotic] 1 each PO DAILY 02/16/19 [History] Levofloxacin [Levaquin] 500 mg PO DAILY 02/16/19 [History] Multivitamins, Thera [Multivitamin (formulary)] 1 tab PO DAILY 02/16/19 [History] Activity/Diet/Wound Care/Special Instructions: Diet: Cardiac Follow-up PCP within 1-2 days of discharge. Follow-up pulmonology within 1 week of discharge. Follow-up with pulmonology for the results of your bronchoscopy with biopsy. Take home medications as advised. Discharge Disposition: HOME SELF-CARE
[2019-02-19 16:30] VITALS: BP 134/70; PULSE 78; RESP 22
== END 2019-02-19 17:31 | disposition home or self-care (01) | DRG 167 ==
LOC: ORWHC2ENDO 08:34 → 2SICU 13:16 → ORWHC2ENDO 13:24
PROVIDERS: ADMIT Internal Medicine Critical Care Medicine; ATTEND Internal Medicine Critical Care Medicine
PROC: 0BBG8ZX Excision of Left Upper Lung Lobe, Via Natural or Artificial Opening Endoscopic, Diagnostic (ICD-10-PCS; principal; 2019-02-18 11:00)
PROC: 0BDG8ZX Extraction of Left Upper Lung Lobe, Via Natural or Artificial Opening Endoscopic, Diagnostic (ICD-10-PCS; 2019-02-18 11:00)
DX: J96.21 Acute and chronic respiratory failure with hypoxia (principal); I50.32 Chronic diastolic (congestive) heart failure; C34.12 Malignant neoplasm of upper lobe, left bronchus or lung; I11.0 Hypertensive heart disease with heart failure; I48.0 Paroxysmal atrial fibrillation; J43.9 Emphysema, unspecified; E66.9 Obesity, unspecified; E78.5 Hyperlipidemia, unspecified; G89.29 Other chronic pain; H91.90 Unspecified hearing loss, unspecified ear; I25.10 Atherosclerotic heart disease of native coronary artery without angina pectoris; K21.9 Gastro-esophageal reflux disease without esophagitis; K58.9 Irritable bowel syndrome, unspecified; M19.90 Unspecified osteoarthritis, unspecified site; N40.0 Benign prostatic hyperplasia without lower urinary tract symptoms; K44.9 Diaphragmatic hernia without obstruction or gangrene; K57.90 Diverticulosis of intestine, part unspecified, without perforation or abscess without bleeding; M54.9 Dorsalgia, unspecified; Z68.34 Body mass index [BMI] 34.0-34.9, adult; Z79.01 Long term (current) use of anticoagulants; Z79.82 Long term (current) use of aspirin; Z79.899 Other long term (current) drug therapy; Z79.52 Long term (current) use of systemic steroids; Z99.81 Dependence on supplemental oxygen; Z86.73 Personal history of transient ischemic attack (TIA), and cerebral infarction without residual deficits; Z87.891 Personal history of nicotine dependence; Z96.652 Presence of left artificial knee joint; Z98.42 Cataract extraction status, left eye; Z98.41 Cataract extraction status, right eye; Z96.1 Presence of intraocular lens; Z88.8 Allergy status to other drugs, medicaments and biological substances; Z98.1 Arthrodesis status; Z80.1 Family history of malignant neoplasm of trachea, bronchus and lung; Z82.61 Family history of arthritis; Z83.6 Family history of other diseases of the respiratory system
CPT/HCPCS: 31623; 31624; 31625; 31627; 31629; 36600; 71045; 71250; 80048; 80053; 82805; 84132; 85025; 85027; 88104; 88108; 88173; 88305; 88341; 88342; 89050; 94002; 94640

== ENCOUNTER 2019-02-22 10:54 | Inpatient (IN) | payer MEDICARE, BC ==
[2019-02-22] MEDS ORDERED: IPRATROPIUM-ALBUTEROL 3 ML NEB INHALATION STA (11:20)
--- NOTE | 2019-02-22 11:24 | ED ---
SOB HPI - General Chief Complaint: Shortness of Breath Stated Complaint: SOB/pneumonia Time Seen by Provider: 02/22/19 11:12 Source: patient, RN notes reviewed, old records reviewed Mode of arrival: wheelchair Limitations: no limitations - History of Present Illness Initial Comments: Patient is a 68-year-old male with multiple comorbidities presents emergency department today with worsening shortness of breath. Patient was sent in by PCP is after being diagnosed with lung cancer. Patient reportedly just been out this recent diagnosis of lung cancer. He states that he has had progressive shortness of breath, normally he is wearing 2 L of oxygen but increase it to 5 L. Patient has been increasingly fatigued. Patient also complains of dif fuse abdominal discomfort, and chronic hip and extremity pain. Patient reportedly has had no fevers or chills at this time. Patient's does report that he seems to be somewhat paler than usual. Denies any changes in stools. Patient reports that he was in the hospital on Friday and was on the ventilator for short periods time after bronchoscopy. - Related Data Home Medications Medication Instructions Recorded Confirmed Aspirin 81 mg PO DAILY 11/21/18 02/22/19 Atorvastatin [Lipitor] 80 mg PO HS 11/21/18 02/22/19 Cyclobenzaprine [Flexeril] 10 mg PO HS 11/30/18 02/22/19 Tiotropium 18 Mcg/Puff [Spiriva] 1 puff INHALATION RT-DAILY 12/06/18 02/22/19 Metoprolol Tartrate [Lopressor] 100 mg PO Q8H 01/11/19 02/22/19 predniSONE 20 mg PO QAM 01/11/19 02/22/19 Omeprazole [PriLOSEC] 20 mg PO QAM 02/02/19 02/22/19 L.acidoph,Paracasei, B.lactis 1 cap PO DAILY 02/16/19 02/22/19 [Probiotic] Multivitamins, Thera [Multivitamin 1 tab PO DAILY 02/16/19 02/22/19 (formulary)] Previous Rx's Medication Instructions Recorded Apixaban [Eliquis] 5 mg PO BID #20 tab 12/03/18 Digoxin 250 mcg PO DAILY #10 tablet 12/03/18 Diltiazem HCl 90 mg PO Q6H #40 tablet 12/03/18 Tamsulosin HCl [Flomax] 0.4 mg PO HS #20 capsule 12/03/18 Gabapentin [Neurontin] 400 mg PO QID #120 cap 01/16/19 HYDROcodone/APAP 10-325MG [[place] 1 tab PO Q6H PRN #20 tab 01/16/19 10-325] Allergies Allergy/AdvReac Type Severity Reaction Status Date / Time montelukast sodium AdvReac Itching Verified 02/22/19 11:21 [From [facility]] Review of Systems ROS Statement: Those systems with pertinent positive or pertinent negative responses have been documented in the HPI. ROS Other: All systems not noted in ROS Statement are negative. Past Medical History Past Medical History: Coronary Artery Disease (CAD), Chest Pain / Angina, COPD, CVA/TIA, GERD/Reflux, Hyperlipidemia, Hypertension, Osteoarthritis (OA), Prostate Disorder Additional Past Medical History / Comment(s): spouse states "a plastic tube was left in his throat when he was transferred by EMS and has recurrent respiratory infections", BPH, vertigo due to inner ear problem, states has 30% blockage in his heart, TIA, hiatal hernia, IBS, bilateral tinnitis,emphysema,diverticulitis History of Any Multi-Drug Resistant Organisms: C-DIFF, ESBL Date of last positivie culture/infection: 12/23/18 MDRO Source:: Sputum MDRO ESBL,c-diff beginning of January 2019,currently symptom free Past Surgical History: Adenoidectomy, Back Surgery, Heart Catheterization, Hernia Repair, Joint Replacement, Orthopedic Surgery, Tonsillectomy Additional Past Surgical History / Comment(s): L knee replacement, back surgery x2-failed fusion and 2 rods in lower back, L/R cataract surgery, bilat. rib removal (cervical), carpal tunnel R wrist, colonoscopy, L elbow surgery, abdominal hernia repair, 3 R inguinal hernia repairs, L inguinal hernia repair, rectal cystectomy.pain pump(ms) implanted removed 11/06/2018 Past Anesthesia/Blood Transfusion Reactions: Previous Problems w/ Anesthesia Additional Past Anesthesia/Blood Transfusion Reaction / Comment(s): With first surgery became belligerent when waking up. Past Psychological History: No Psychological Hx Reported Smoking Status: Former smoker Past Alcohol Use History: None Reported Past Drug Use History: None Reported - Past Family History Mother Family Medical History: No Reported History Additional Family Medical History / Comment(s): Mother was healthy and lived to be 88 or 89yrs old. Father Family Medical History: Cancer Additional Family Medical History / Comment(s): Father of lung cancer in his early 70's. General Exam - General Exam Comments Initial Comments: This is a 68-year-old male. Patient appears in acute discomfort. Pale. Wheezing noted at entry to room. Limitations: no limitations General appearance: alert, in no apparent distress Head exam: Present: atraumatic, normocephalic, normal inspection Eye exam: Present: normal appearance, PERRL, EOMI. Absent: scleral icterus, conjunctival injection, periorbital swelling ENT exam: Present: normal exam, mucous membranes moist Neck exam: Present: normal inspection. Absent: tenderness, meningismus, lymphadenopathy Respiratory exam: Present: normal lung sounds bilaterally. Absent: respiratory distress, wheezes, rales, rhonchi, stridor Cardiovascular Exam: Present: regular rate, normal rhythm, normal heart sounds. Absent: systolic murmur, diastolic murmur, rubs, gallop, clicks GI/Abdominal exam: Present: soft, tenderness (diffuse tenderness), normal bowel sounds. Absent: distended, guarding, rebound, rigid Extremities exam: Present: normal inspection, full ROM, normal capillary refill. Absent: tenderness, pedal edema, joint swelling, calf tenderness Back exam: Present: normal inspection Neurological exam: Present: alert, oriented X3, CN II-XII intact Psychiatric exam: Present: normal affect, normal mood Skin exam: Present: warm, dry, intact, normal color. Absent: rash Course Vital Signs 02/22/19 02/22/19 02/22/19 10:59 11:26 11:48 Temperature 97.8 F Pulse Rate 105 H 104 H 107 H Respiratory 28 H Rate Blood Pressure 153/64 O2 Sat by Pulse 87 L Oximetry Medical Decision Making - Medical Decision Making Patient's a 68-year-old male with multiple coronary disease with recent diagnosis of lung cancer. Sensitive worsening shortness of breath. Patient was given multiple breathing treatments, EKG showed some acute changes of ST inversion. Given nitro and aspirin. Concern for possibly PE. C Patient underwent CT imaging chest. His evidence of significant pneumonia. Patient has been started on Rocephin Zosyn and Levaquin. He was recently in the hospital and ventilated concern for age. Patient also does not have an N STEMI. Patient started on heparin. - Lab Data Result diagrams: 02/22/19 13:22 02/22/19 12:06 Lab Results 02/22/19 02/22/19 02/22/19 Range/Units 12:06 12:06 12:06 WBC 12.7 H (3.8-10.6) k/uL RBC 2.85 L (4.30-5.90) m/uL Hgb 7.8 L (13.0-17.5) gm/dL Hct 25.7 L (39.0-53.0) % MCV 90.1 (80.0-100.0) fL MCH 27.5 (25.0-35.0) pg MCHC 30.5 L (31.0-37.0) g/dL RDW 17.7 H (11.5-15.5) % Plt Count 338 (150-450) k/uL Neutrophils % 83 % Lymphocytes % 8 % Monocytes % 6 % Eosinophils % 1 % Basophils % 0 % Neutrophils # 10.5 H (1.3-7.7) k/uL Lymphocytes # 1.1 (1.0-4.8) k/uL Monocytes # 0.8 (0-1.0) k/uL Eosinophils # 0.1 (0-0.7) k/uL Basophils # 0.0 (0-0.2) k/uL Hypochromasia Marked Anisocytosis Slight PT (9.0-12.0) sec INR (<1.2) APTT (22.0-30.0) sec Sodium 134 L (137-145) mmol/L Potassium 5.0 (3.5-5.1) mmol/L Chloride 98 (98-107) mmol/L Carbon Dioxide 27 (22-30) mmol/L Anion Gap 9 mmol/L BUN 26 H (9-20) mg/dL Creatinine 1.20 (0.66-1.25) mg/dL Est GFR (CKD-EPI)AfAm 71 (>60 ml/min/1.73 sqM) Est GFR (CKD-EPI)NonAf 61 (>60 ml/min/1.73 sqM) Glucose 189 H (74-99) mg/dL Plasma Lactic Acid Isaac 3.2 H* (0.7-2.0) mmol/L Calcium 9.4 (8.4-10.2) mg/dL Total Bilirubin 0.9 (0.2-1.3) mg/dL AST 246 H (17-59) U/L ALT 105 H (21-72) U/L Alkaline Phosphatase 356 H (38-126) U/L Troponin I (0.000-0.034) ng/mL NT-Pro-B Natriuret Pep pg/mL Total Protein 5.7 L (6.3-8.2) g/dL Albumin 3.3 L (3.5-5.0) g/dL Urine Color Urine Appearance (Clear) Urine pH (5.0-8.0) Ur Specific Pound (1.001-1.035) Urine Protein (Negative) Urine Glucose (UA) (Negative) Urine Ketones (Negative) Urine Blood (Negative) Urine Nitrite (Negative) Urine Bilirubin (Negative) Urine Urobilinogen (<2.0) mg/dL Ur Leukocyte Esterase (Negative) Urine RBC (0-5) /hpf Urine WBC (0-5) /hpf Urine WBC Clumps (None) /hpf Urine Bacteria (None) /hpf Urine Mucus (None) /hpf Blood Type Blood Type Recheck Antibody Screen Spec Expiration Date 02/22/19 02/22/19 02/22/19 Range/Units 12:06 12:06 12:06 WBC (3.8-10.6) k/uL RBC (4.30-5.90) m/uL Hgb (13.0-17.5) gm/dL Hct (39.0-53.0) % MCV (80.0-100.0) fL MCH (25.0-35.0) pg MCHC (31.0-37.0) g/dL RDW (11.5-15.5) % Plt Count (150-450) k/uL Neutrophils % % Lymphocytes % % Monocytes % % Eosinophils % % Basophils % % Neutrophils # (1.3-7.7) k/uL Lymphocytes # (1.0-4.8) k/uL Monocytes # (0-1.0) k/uL Eosinophils # (0-0.7) k/uL Basophils # (0-0.2) k/uL Hypochromasia Anisocytosis PT 10.4 (9.0-12.0) sec INR 1.0 (<1.2) APTT 20.5 L (22.0-30.0) sec Sodium (137-145) mmol/L Potassium (3.5-5.1) mmol/L Chloride (98-107) mmol/L Carbon Dioxide (22-30) mmol/L Anion Gap mmol/L BUN (9-20) mg/dL Creatinine (0.66-1.25) mg/dL Est GFR (CKD-EPI)AfAm (>60 ml/min/1.73 sqM) Est GFR (CKD-EPI)NonAf (>60 ml/min/1.73 sqM) Glucose (74-99) mg/dL Plasma Lactic Acid Isaac (0.7-2.0) mmol/L Calcium (8.4-10.2) mg/dL Total Bilirubin (0.2-1.3) mg/dL AST (17-59) U/L ALT (21-72) U/L Alkaline Phosphatase (38-126) U/L Troponin I 0.035 H* (0.000-0.034) ng/mL NT-Pro-B Natriuret Pep pg/mL Total Protein (6.3-8.2) g/dL Albumin (3.5-5.0) g/dL Urine Color Yellow Urine Appearance Cloudy (Clear) Urine pH 5.5 (5.0-8.0) Ur Specific [place]ound 1.018 (1.001-1.035) Urine Protein 1+ H (Negative) Urine Glucose (UA) Negative (Negative) Urine Ketones Negative (Negative) Urine Blood Negative (Negative) Urine Nitrite Positive (Negative) Urine Bilirubin Negative (Negative) Urine Urobilinogen <2.0 (<2.0) mg/dL Ur Leukocyte Esterase Large H (Negative) Urine RBC 1 (0-5) /hpf Urine WBC 66 H (0-5) /hpf Urine WBC Clumps Few H (None) /hpf Urine Bacteria Few H (None) /hpf Urine Mucus Rare H (None) /hpf Blood Type Blood Type Recheck Antibody Screen Spec Expiration Date 02/22/19 02/22/19 02/22/19 Range/Units 13:22 13:22 13:22 WBC 12.1 H (3.8-10.6) k/uL RBC 2.69 L (4.30-5.90) m/uL Hgb 7.3 L (13.0-17.5) gm/dL Hct 24.9 L (39.0-53.0) % MCV 92.5 (80.0-100.0) fL MCH 27.2 (25.0-35.0) pg MCHC 29.4 L (31.0-37.0) g/dL RDW 17.5 H (11.5-15.5) % Plt Count 310 (150-450) k/uL Neutrophils % 85 % Lymphocytes % 6 % Monocytes % 7 % Eosinophils % 1 % Basophils % 0 % Neutrophils # 10.3 H (1.3-7.7) k/uL Lymphocytes # 0.7 L (1.0-4.8) k/uL Monocytes # 0.8 (0-1.0) k/uL Eosinophils # 0.1 (0-0.7) k/uL Basophils # 0.0 (0-0.2) k/uL Hypochromasia Marked Anisocytosis Slight PT 10.4 (9.0-12.0) sec INR 1.0 (<1.2) APTT 21.3 L (22.0-30.0) sec Sodium (137-145) mmol/L Potassium (3.5-5.1) mmol/L Chloride (98-107) mmol/L Carbon Dioxide (22-30) mmol/L Anion Gap mmol/L BUN (9-20) mg/dL Creatinine (0.66-1.25) mg/dL Est GFR (CKD-EPI)AfAm (>60 ml/min/1.73 sqM) Est GFR (CKD-EPI)NonAf (>60 ml/min/1.73 sqM) Glucose (74-99) mg/dL Plasma Lactic Acid Isaac (0.7-2.0) mmol/L Calcium (8.4-10.2) mg/dL Total Bilirubin (0.2-1.3) mg/dL AST (17-59) U/L ALT (21-72) U/L Alkaline Phosphatase (38-126) U/L Troponin I (0.000-0.034) ng/mL NT-Pro-B Natriuret Pep pg/mL Total Protein (6.3-8.2) g/dL Albumin (3.5-5.0) g/dL Urine Color Urine Appearance (Clear) Urine pH (5.0-8.0) Ur Specific [place] (1.001-1.035) Urine Protein (Negative) Urine Glucose (UA) (Negative) Urine Ketones (Negative) Urine Blood (Negative) Urine Nitrite (Negative) Urine Bilirubin (Negative) Urine Urobilinogen (<2.0) mg/dL Ur Leukocyte Esterase (Negative) Urine RBC (0-5) /hpf Urine WBC (0-5) /hpf Urine WBC Clumps (None) /hpf Urine Bacteria (None) /hpf Urine Mucus (None) /hpf Blood Type O Positive Blood Type Recheck No Antibody Screen NEGATIVE Spec Expiration Date 02/25/2019232102/22/19 Range/Units 13:22 WBC (3.8-10.6) k/uL RBC (4.30-5.90) m/uL Hgb (13.0-17.5) gm/dL Hct (39.0-53.0) % MCV (80.0-100.0) fL MCH (25.0-35.0) pg MCHC (31.0-37.0) g/dL RDW (11.5-15.5) % Plt Count (150-450) k/uL Neutrophils % % Lymphocytes % % Monocytes % % Eosinophils % % Basophils % % Neutrophils # (1.3-7.7) k/uL Lymphocytes # (1.0-4.8) k/uL Monocytes # (0-1.0) k/uL Eosinophils # (0-0.7) k/uL Basophils # (0-0.2) k/uL Hypochromasia Anisocytosis PT (9.0-12.0) sec INR (<1.2) APTT (22.0-30.0) sec Sodium (137-145) mmol/L Potassium (3.5-5.1) mmol/L Chloride (98-107) mmol/L Carbon Dioxide (22-30) mmol/L Anion Gap mmol/L BUN (9-20) mg/dL Creatinine (0.66-1.25) mg/dL Est GFR (CKD-EPI)AfAm (>60 ml/min/1.73 sqM) Est GFR (CKD-EPI)NonAf (>60 ml/min/1.73 sqM) Glucose (74-99) mg/dL Plasma Lactic Acid Isaac (0.7-2.0) mmol/L Calcium (8.4-10.2) mg/dL Total Bilirubin (0.2-1.3) mg/dL AST (17-59) U/L ALT (21-72) U/L Alkaline Phosphatase (38-126) U/L Troponin I (0.000-0.034) ng/mL NT-Pro-B Natriuret Pep 427 pg/mL Total Protein (6.3-8.2) g/dL Albumin (3.5-5.0) g/dL Urine Color Urine Appearance (Clear) Urine pH (5.0-8.0) Ur Specific [place] (1.001-1.035) Urine Protein (Negative) Urine Glucose (UA) (Negative) Urine Ketones (Negative) Urine Blood (Negative) Urine Nitrite (Negative) Urine Bilirubin (Negative) Urine Urobilinogen (<2.0) mg/dL Ur Leukocyte Esterase (Negative) Urine RBC (0-5) /hpf Urine WBC (0-5) /hpf Urine WBC Clumps (None) /hpf Urine Bacteria (None) /hpf Urine Mucus (None) /hpf Blood Type Blood Type Recheck Antibody Screen Spec Expiration Date 02/22/19 14:16 EKG shows sinus tachycardia, ST depression consider subendocardial injury. Magic rate 109 bpm. Pulse 156 most seconds. Duration 80 ms. QT QTc is 346/465 ms. - Radiology Data Radiology results: report reviewed Extensive review motion artifact no large central pulmonary embolus. No definite embolus on the right. Segmental more distal arterial branches on the left limited and emboli dislocations cannot be excluded. COPD and arterial hypertension. It is these progression with left hilar mass now cutting off the left upper bronchus measuring 2.5 cm left upper lobe nodule, increasing diffuse mediastinal lymphadenopathy. Findings suspicious for hepatic metastases. Si milar 1 cm adrenal nodules nonspecific. Extensive consolidation in the left lower lobe. Alert correlate for infectious or aspiration pneumonia. Increasing septal lines and left upper lobe could be w orsening venous congestion or pneumonitis. Disposition Clinical Impression: HCAP (healthcare-associated pneumonia), NSTEMI (non-ST elevated myocardial infarction), EKG abnormalities, Hypoxia, Lung mass, UTI (urinary tract infection) Disposition: ADMITTED IP TO THIS HOSP Condition: Stable Is patient prescribed a controlled substance at d/c from ED?: No Referrals: David Suazo MD [Primary Care Provider] - 1-2 days Time of Disposition: 15:56
[2019-02-22] MEDS: SODIUM CHLORIDE 0.9% 500 ML 500 ML IV SCH (12:12)
[2019-02-22] MEDS: SODIUM CHLORIDE 0.9% 1,000 ML IV SCH ×2 (12:12→21:02)
[2019-02-22] MEDS ORDERED: NITROGLYCERIN SL TABS 0.4 MG TAB SUBLINGUAL STA (12:32)
[2019-02-22] MEDS ORDERED: ASPIRIN 81 MG PO STA (12:33)
[2019-02-22 13:05] LABS: Prothrombin Time 10.4 sec (9.0-12.0)
[2019-02-22 13:07] LABS: Anisocytosis Slight; Basophils % (A) 0 %; Eosinophils # (A) 0.1 k/uL (0-0.7); Eosinophils % (A) 1 %; HCT 25.7 % (39.0-53.0); HGB 7.8 gm/dL (13.0-17.5); Hypochromasia Marked; Lymphocytes # (A) 1.1 k/uL (1.0-4.8); Lymphocytes % (A) 8 %; MCH 27.5 pg (25.0-35.0); MCHC 30.5 g/dL (31.0-37.0); MCV 90.1 fL (80.0-100.0); Mean Platelet Volume 8.4; Monocytes # (A) 0.8 k/uL (0-1.0); Monocytes % (A) 6 %; Neutrophils # (A) 10.5 k/uL (1.3-7.7); Neutrophils % (A) 83 %; Platelet Count 338 k/uL (150-450); RBC 2.85 m/uL (4.30-5.90); RDW 17.7 % (11.5-15.5); WBC 12.7 k/uL (3.8-10.6)
[2019-02-22 13:08] LABS: Albumin 3.3 g/dL (3.5-5.0); Calcium 9.4 mg/dL (8.4-10.2); Total Bilirubin 0.9 mg/dL (0.2-1.3); Total Protein 5.7 g/dL (6.3-8.2)
[2019-02-22 13:09] LABS: Appearance,Urine Cloudy (Clear); Bacteria,Urine Few /hpf; Bilirubin,Urine Negative (Negative); Blood,Urine Negative (Negative); Color,Urine Yellow; Glucose,Urine (UA) Negative (Negative); Ketones,Urine Negative (Negative); Leukocyte Esterase,Urine Large (Negative); Mucus,Urine Rare /hpf; Nitrite,Urine Positive (Negative); PH, Urine 5.5 (5.0-8.0); Protein,Urine 1+ (Negative); RBC,Urine 1 /hpf (0-5); Specific Gravity,Urine 1.018 (1.001-1.035); Urobilinogen,Urine <2.0 mg/dL (<2.0); WBC,Urine 66 /hpf (0-5)
[2019-02-22 13:15] LABS: Partial Thromboplastin Time 20.5 sec (22.0-30.0)
[2019-02-22] MEDS ORDERED: HEPARIN SOD,PORK IN 0.45% NACL 25,000 UNIT in 0.45% NACL 1 250ML.BAG IV SCH (13:15)
[2019-02-22] MEDS ORDERED: HEPARIN SODIUM,PORCINE 5,000 UNIT/ML 1 ML VIAL IV PRN (13:15)
[2019-02-22] MEDS ORDERED: HEPARIN SODIUM,PORCINE 5,000 UNIT/ML 1 ML VIAL IV ONE (13:15)
[2019-02-22] MEDS ORDERED: MORPHINE SULFATE 4 MG/ML SYRINGE IVP STA (13:42)
[2019-02-22 13:50] LABS: Anisocytosis Slight; Basophils % (A) 0 %; Eosinophils # (A) 0.1 k/uL (0-0.7); Eosinophils % (A) 1 %; HCT 24.9 % (39.0-53.0); HGB 7.3 gm/dL (13.0-17.5); Hypochromasia Marked; Lymphocytes # (A) 0.7 k/uL (1.0-4.8); Lymphocytes % (A) 6 %; MCH 27.2 pg (25.0-35.0); MCHC 29.4 g/dL (31.0-37.0); MCV 92.5 fL (80.0-100.0); Monocytes # (A) 0.8 k/uL (0-1.0); Monocytes % (A) 7 %; Neutrophils # (A) 10.3 k/uL (1.3-7.7); Neutrophils % (A) 85 %; Platelet Count 310 k/uL (150-450); RBC 2.69 m/uL (4.30-5.90); RDW 17.5 % (11.5-15.5); WBC 12.1 k/uL (3.8-10.6)
[2019-02-22 14:01] LABS: Prothrombin Time 10.4 sec (9.0-12.0)
[2019-02-22 14:10] LABS: Partial Thromboplastin Time 21.3 sec (22.0-30.0)
--- NOTE | 2019-02-22 14:37 | XR ---
EXAMINATION TYPE: XR chest 2V DATE OF EXAM: 02/22/2019 COMPARISON: 02/18/2019 HISTORY: Shortness of breath TECHNIQUE: Frontal and lateral views of the chest are obtained. FINDINGS: Scattered senescent parenchymal changes noted. Hyperinflation compatible with COPD. Progressive infiltrate left perihilar left lower lobe region. Correlate for pneumonia. Underlying les ion of other etiology difficult to exclude. Follow-up until resolution is advised. Heart size is stable. Mediastinal structures are stable and grossly unremarkable. No evidence for hilar prominence. Degenerative changes dorsal spine. IMPRESSION: 1. Progressive infiltrate left perihilar left lower lobe region. Correlate for pneumonia. Underlying lesion of other etiology difficult to exclude. Follow-up until resolution is advised.
--- NOTE | 2019-02-22 15:04 | CT ---
EXAMINATION TYPE: CT chest angio for PE DATE OF EXAM: 02/22/2019 COMPARISON: 02/02/2019 HISTORY: 68-year-old male shortness of breath and pain TECHNIQUE: Contiguous axial scanning of the chest performed with IV Contrast, patient injected with 8 0 mL of Isovue 370. Coronal/sagittal MIP reconstructions performed. CT DLP: 563.7 mGycm Automated exposure control for dose reduction was used. FINDINGS: Heart normal size without pericardial effusion. Excessive breathing motion artifact limits evaluation. Enlarged caliber to the main right and left pu lmonary arteries measuring up to 2.7 cm. No large central lobar pulmonary embolus. No definite segmen jace branch embolus on the right. Segmental and more distal arterial branches on the left are very castaneda ited. Ectatic aortic root at 3.8 cm. Moderate atherosclerotic arch calcifications with conventional arch ve ssel branching anatomy. Redemonstrated diffuse mediastinal lymphadenopathy. This measures 2.5 cm thick in the AP window regio n versus 2.4 cm, previously. 2.1 cm thick in the right tracheobronchial angle versus 1.1 cm thick, pr eviously. Some new nodules are seen in the prevascular space region. Prominent lymphadenopathy in the pericarinal region slightly increased. Subcarinal lymphadenopathy measuring up to 1.9 cm versus 1.5 cm, previously. Encasing, conglomerate left hilar lymphadenopathy with abnormal soft tissue extending along the left upper lobe bronchovascular bundles as seen previously. Focal soft tissue currently measures 4.4 cm ve rsus 4.1 cm, previously. There continues to be encasement of the distal left mainstem and proximal lo bar bronchi with no cut off of the left upper lobe bronchus and encasement of some the pulmonary senthil rial branches. Moderate emphysema. Septal thickening throughout the left upper lobe slightly increased in the interval. New patchy consolidation peripheral left lower lung. No pleural effusion. There is an emphysematous cyst posterior left upper lobe with adjacent nodule that currently measures 2.5 cm versus 1.9 cm, previously. New diffuse nodularity throughout the liver. Left adrenal gland nodularity measures 1.3 cm versus 1.5 cm, previously. Subcortical hypodensities in the left kidney are indeterminate, probably cysts. Bones: Endplate spondylosis throughout the thoracic spine. IMPRESSION: 1. EXCESSIVE BREATHING MOTION ARTIFACT. NO LARGE CENTRAL OR LOBAR PULMONARY EMBOLUS. NO DEFINITE SEGM ENTAL EMBOLUS ON THE RIGHT. ASSESSMENT OF THE SEGMENTAL AND MORE DISTAL ARTERIAL BRANCHES ON THE LEFT ARE PARTICULARLY LIMITED AND EMBOLI IN THESE LOCATIONS CANNOT BE EXCLUDED ON THE BASIS OF THIS EXAM. 2. COPD AND PULMONARY ARTERIAL HYPERTENSION. 3. DISEASE PROGRESSION WITH ENCASING LEFT HILAR MASS NOW CUTTING OFF THE LEFT UPPER LOBE BRONCHUS, EN LARGING 2.5 CM LEFT UPPER LOBE NODULE, AND INCREASING DIFFUSE MEDIASTINAL LYMPHADENOPATHY. FINDINGS SUSPICIOUS FOR NEW DIFFUSE HEPATIC METASTASES. SIMILAR TO SLIGHTLY SMALLER 1.3 CM LEFT ADRENAL NODULE IS NONSPECIFIC. 4. NEW EXTENSIVE CONSOLIDATION PERIPHERAL LEFT LOWER LOBE. CORRELATE FOR INFECTIOUS OR ASPIRATION PNE UMONIA. 5. INCREASING SEPTAL LINES IN THE LEFT UPPER LOBE COULD REPRESENT WORSENING VENOUS CONGESTION OR PNEU MONITIS.
[2019-02-22] MEDS ORDERED: IPRATROPIUM-ALBUTEROL 3 ML NEB INHALATION PRN (15:32)
[2019-02-22] MEDS ORDERED: PNEUMONIA PROTOCOL UTILIZED 1 EACH MISC PO PRN (15:32)
[2019-02-22] MEDS ORDERED: SODIUM CHLORIDE 0.9% 1,000 ML IV ONE ×2 (15:38)
[2019-02-22] MEDS ORDERED: HYDROcodone/APAP 5-325MG 1 EACH TAB PO PRN (15:57)
[2019-02-22] MEDS ORDERED: IBUPROFEN 400 MG TAB PO PRN (15:57)
[2019-02-22] MEDS ORDERED: NALOXONE 0.4 MG/ML 1 ML VIAL IV PRN (15:57)
[2019-02-22] MEDS ORDERED: ACETAMINOPHEN TAB 325 MG TAB PO PRN (15:57)
[2019-02-22] MEDS ORDERED: LEVOFLOXACIN 750MG-D5W PMX 750 MG in DEXTROSE/WATER 1 150ML.BAG IVPB SCH (18:00)
[2019-02-22] MEDS: PIPERACILLIN-TAZOBACTAM 3.375 GM in SODIUM CHLORIDE 0.9% 100 ML IVPB SCH ×2 (18:10→23:00)
[2019-02-22] MEDS: GABAPENTIN 400 MG CAP PO SCH (21:00)
[2019-02-22] MEDS: TAMSULOSIN 0.4 MG CAP.ER.24H PO SCH (21:00)
[2019-02-22] MEDS: CYCLOBENZAPRINE 10 MG TAB PO SCH (21:00)
[2019-02-22] MEDS: APIXABAN 5 MG TAB PO SCH (21:00)
[2019-02-22] MEDS: METOPROLOL TARTRATE 50 MG TAB PO SCH (22:59)
[2019-02-22] MEDS: DOXYCYCLINE 100 MG CAP PO SCH (22:59)
[2019-02-22] MEDS: DILTIAZEM ORAL 30 MG TAB PO SCH (22:59)
--- NOTE | 2019-02-23 00:07 | P.HPIM ---
History of Present Illness H&P Date: 02/22/19 Chief Complaint: Hypoxemia increased work of breathing 68-year-old male with chronic hypoxic respiratory failure secondary to COPD, history of CAD and CVA, paroxysmal A. fib on Eliquis. Diastolic CHF Patient with recurrent hospitalization due to recurrent pneumonia. Thorough review of his chart and records showed that he's been hospitalized frequently over the past couple months due to recurrent pneumonia hypoxemia and cloudy mental status. Patient received multiple courses of antibiotics to treat community-acquired pneumonias. He was also found to have left hilar mass lesion for which she had bronchoscopy done on 02/18/2019 of which resulted showing small cell lung cancer. This is new diagnosis the patient. CAT scan from today is suggestive of possible worsening of the size of the mass with some obstructive pattern on the left upper bronchus along with consolidation the left lower lobe of the lungs and increased diffuse mediastinal lymphadenopathy. Also suggestive of possible liver mass and adrenal mass. Patient coming into the hospital today due to increased work of breathing and hypoxia patient felt tired and didn't go over much details but he denies any worsening of his baseline cough or any changes in his productive sputum pattern which is yellow in color denies any hemoptysis he denies any GI bleeding but he reports feeling generalized weakness aggressive fatigue and worsening shortness of breath since he has been home over the past few days. Patient is not doing much he's been bedbound most of the time compliant with his medications and still using home oxygen. In the ED he was found to have anemia which has been trending down slowly in spring chronic, elevated liver enzymes which is new thought to be due to either atypical form of pneumonia like legionella rickettsia versus the possible metastatic lesion to the liver. Found to have elevated lactic acid. He denies any fevers or chills but he does report some abdominal discomfort which is generalized intake he denies any anginal symptoms but reports left-sided chest pain when he takes deep breaths or moves his body. Again he doesn't go over details. Patient feels tired and he is trying to sleep is not available at bedside at this time. Patient was started on empiric broad-spectrum antibiotics in the ED and was admitted for further care Review of Systems Pertinent positives as noted in HPI. All other systems were reviewed and are negative Past Medical History Past Medical History: Coronary Artery Disease (CAD), Cancer, Chest Pain / Angina, COPD, CVA/TIA, GERD/Reflux, Hyperlipidemia, Hypertension, Osteoarthritis (OA), Prostate Disorder Additional Past Medical History / Comment(s): recurrent respiratory infections, BPH, vertigo due to inner ear problem, CAD, TIA, hiatal hernia, IBS, bilateral tinnitis,emphysema,diverticulitis History of Any Multi-Drug Resistant Organisms: C-DIFF, ESBL Date of last positivie culture/infection: 12/23/18 MDRO Source:: Sputum MDRO ESBL,c-diff beginning of January 2019,currently symptom free Past Surgical History: Adenoidectomy, Back Surgery, Heart Catheterization, Hernia Repair, Joint Replacement, Orthopedic Surgery, Tonsillectomy Additional Past Surgical History / Comment(s): L knee replacement, back surgery x2-failed fusion and 2 rods in lower back, L/R cataract surgery, bilat. rib removal (cervical), carpal tunnel R wrist, colonoscopy, L elbow surgery, abdominal hernia repair, 3 R inguinal hernia repairs, L inguinal hernia repair, rectal cystectomy.pain pump(ms) implanted removed 11/06/2018 Past Anesthesia/Blood Transfusion Reactions: Previous Problems w/ Anesthesia Additional Past Anesthesia/Blood Transfusion Reaction / Comment(s): With first surgery became belligerent when waking up. Past Psychological History: No Psychological Hx Reported Additional Psychological History / Comment(s): Pt resides with his spouse. He uses a cane to ambulate. has nebulizer He drives. 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 Is no longer smoking. No animals in the home Smoking Status: Former smoker Past Alcohol Use History: None Reported Additional Past Alcohol Use History / Comment(s): Pt started smoking in 1962 and quit in May of 2018. Past Drug Use History: None Reported - Past Family History Mother Family Medical History: No Reported History Additional Family Medical History / Comment(s): Mother was healthy and lived to be 88 or 89yrs old. Father Family Medical History: Cancer Additional Family Medical History / Comment(s): Father of lung cancer in his early 70's. Medications and Allergies Home Medications Medication Instructions Recorded Confirmed Type Aspirin 81 mg PO DAILY 11/21/18 02/22/19 History Atorvastatin [Lipitor] 80 mg PO HS 11/21/18 02/22/19 History Cyclobenzaprine [Flexeril] 10 mg PO HS 11/30/18 02/22/19 History Apixaban [Eliquis] 5 mg PO BID #20 tab 12/03/18 02/22/19 Rx Digoxin 250 mcg PO DAILY #10 tablet 12/03/18 02/22/19 Rx Diltiazem HCl 90 mg PO Q6H #40 tablet 12/03/18 02/22/19 Rx Tamsulosin HCl [Flomax] 0.4 mg PO HS #20 capsule 12/03/18 02/22/19 Rx Tiotropium 18 Mcg/Puff [Spiriva] 1 puff INHALATION RT-DAILY 12/06/18 02/22/19 History Metoprolol Tartrate [Lopressor] 100 mg PO Q8H 01/11/19 02/22/19 History predniSONE 20 mg PO QAM 01/11/19 02/22/19 History Gabapentin [Neurontin] 400 mg PO QID #120 cap 01/16/19 02/22/19 Rx HYDROcodone/APAP 10-325MG [Leland 1 tab PO Q6H PRN #20 tab 01/16/19 02/22/19 Rx 10-325] Omeprazole [PriLOSEC] 20 mg PO QAM 02/02/19 02/22/19 History L.acidoph,Paracasei, B.lactis 1 cap PO DAILY 02/16/19 02/22/19 History [Probiotic] Multivitamins, Thera [Multivitamin 1 tab PO DAILY 02/16/19 02/22/19 History (formulary)] Allergies Allergy/AdvReac Type Severity Reaction Status Date / Time montelukast sodium AdvReac Itching Verified 02/22/19 11:21 [From [facility]] Physical Exam Vitals: Vital Signs Temp Pulse Pulse Resp BP BP Pulse Ox 02/22/19 20:00 97.8 F 107 H 19 143/63 94 L 02/22/19 18:00 103 H 22 02/22/19 16:53 97.7 F 113 H 22 159/69 92 L 02/22/19 16:15 98.4 F 103 H 20 155/69 95 02/22/19 11:48 107 H 02/22/19 11:26 104 H 02/22/19 10:59 97.8 F 105 H 28 H 153/64 87 L Intake and Output 02/22/19 02/22/19 02/23/19 14:59 22:59 06:59 Other: Weight 108.862 kg Constitutional: No acute distress, conversant, looks very tired and w eak, cooperative with interview and exam Eyes: Anicteric sclerae, moist conjunctiva, no lid-lag Pupils equal round reactive to light ENMT: NC/AT Oropharynx clear, no erythema, or exudates Neck: Supple, FROM, no masses, or JVD No carotid bruits No thyromegaly Lungs: Noisy breathing with diffuse crackles, prolonged expiratory phase Clear to percussion Normal respiratory effort, no accessory muscle use Cardiovascular: Heart regular in rate and rhythm, No murmurs, gallops, or rubs No peripheral edema Abdominal: Soft, discomfort to deep palpation throughout the abdomen no guarding, rebound or rigidity Abdomen moving with respiration Normoactive bowel sounds No hepatomegaly, No splenomegaly No palpable mass No abdominal wall hernia noted Skin: Normal temperature, tone, texture, turgor No induration No subcutaneous nodules No rash, lesions No ulcers Extremities: No digital cyanosis No clubbing Pedal pulses intact and symmetrical Radial pulses intact and symmetrical No calf tenderness Psychiatric: Alert and oriented to person, place Depressed affect fair judgment Neuro Muscles Strength -4/5 in all 4 extremities Sensation to light touch grossly present throughout Cranial nerves II-XII grossly intact No focal sensory deficits Lymphatics: no palpable cervical or supraclavicular , or inguinal lymph nodes Results CBC & Chem 7: 02/22/19 13:22 02/22/19 12:06 Labs: Abnormal Lab Results - Last 24 Hours (Table) 02/22/19 02/22/19 02/22/19 Range/Units 12:06 12:06 12:06 WBC 12.7 H (3.8-10.6) k/uL RBC 2.85 L (4.30-5.90) m/uL Hgb 7.8 L (13.0-17.5) gm/dL Hct 25.7 L (39.0-53.0) % MCHC 30.5 L (31.0-37.0) g/dL RDW 17.7 H (11.5-15.5) % Neutrophils # 10.5 H (1.3-7.7) k/uL Lymphocytes # (1.0-4.8) k/uL APTT (22.0-30.0) sec Sodium 134 L (137-145) mmol/L BUN 26 H (9-20) mg/dL Glucose 189 H (74-99) mg/dL Plasma Lactic Acid Isaac 3.2 H* (0.7-2.0) mmol/L AST 246 H (17-59) U/L ALT 105 H (21-72) U/L Alkaline Phosphatase 356 H (38-126) U/L Troponin I (0.000-0.034) ng/mL Total Protein 5.7 L (6.3-8.2) g/dL Albumin 3.3 L (3.5-5.0) g/dL Urine Protein (Negative) Ur Leukocyte Esterase (Negative) Urine WBC (0-5) /hpf Urine WBC Clumps (None) /hpf Urine Bacteria (None) /hpf Urine Mucus (None) /hpf 02/22/19 02/22/19 02/22/19 Range/Units 12:06 12:06 12:06 WBC (3.8-10.6) k/uL RBC (4.30-5.90) m/uL Hgb (13.0-17.5) gm/dL Hct (39.0-53.0) % MCHC (31.0-37.0) g/dL RDW (11.5-15.5) % Neutrophils # (1.3-7.7) k/uL Lymphocytes # (1.0-4.8) k/uL APTT 20.5 L (22.0-30.0) sec Sodium (137-145) mmol/L BUN (9-20) mg/dL Glucose (74-99) mg/dL Plasma Lactic Acid Isaac (0.7-2.0) mmol/L AST (17-59) U/L ALT (21-72) U/L Alkaline Phosphatase (38-126) U/L Troponin I 0.035 H* (0.000-0.034) ng/mL Total Protein (6.3-8.2) g/dL Albumin (3.5-5.0) g/dL Urine Protein 1+ H (Negative) Ur Leukocyte Esterase Large H (Negative) Urine WBC 66 H (0-5) /hpf Urine WBC Clumps Few H (None) /hpf Urine Bacteria Few H (None) /hpf Urine Mucus Rare H (None) /hpf 02/22/19 02/22/19 02/22/19 Range/Units 13:22 13:22 17:37 WBC 12.1 H (3.8-10.6) k/uL RBC 2.69 L (4.30-5.90) m/uL Hgb 7.3 L (13.0-17.5) gm/dL Hct 24.9 L (39.0-53.0) % MCHC 29.4 L (31.0-37.0) g/dL RDW 17.5 H (11.5-15.5) % Neutrophils # 10.3 H (1.3-7.7) k/uL Lymphocytes # 0.7 L (1.0-4.8) k/uL APTT 21.3 L (22.0-30.0) sec Sodium (137-145) mmol/L BUN (9-20) mg/dL Glucose (74-99) mg/dL Plasma Lactic Acid Isaac 3.3 H* (0.7-2.0) mmol/L AST (17-59) U/L ALT (21-72) U/L Alkaline Phosphatase (38-126) U/L Troponin I (0.000-0.034) ng/mL Total Protein (6.3-8.2) g/dL Albumin (3.5-5.0) g/dL Urine Protein (Negative) Ur Leukocyte Esterase (Negative) Urine WBC (0-5) /hpf Urine WBC Clumps (None) /hpf Urine Bacteria (None) /hpf Urine Mucus (None) /hpf 02/22/19 02/22/19 Range/Units 20:08 21:49 WBC (3.8-10.6) k/uL RBC (4.30-5.90) m/uL Hgb (13.0-17.5) gm/dL Hct (39.0-53.0) % MCHC (31.0-37.0) g/dL RDW (11.5-15.5) % Neutrophils # (1.3-7.7) k/uL Lymphocytes # (1.0-4.8) k/uL APTT 32.0 H (22.0-30.0) sec Sodium (137-145) mmol/L BUN (9-20) mg/dL Glucose (74-99) mg/dL Plasma Lactic Acid Isaac 3.7 H* (0.7-2.0) mmol/L AST (17-59) U/L ALT (21-72) U/L Alkaline Phosphatase (38-126) U/L Troponin I (0.000-0.034) ng/mL Total Protein (6.3-8.2) g/dL Albumin (3.5-5.0) g/dL Urine Protein (Negative) Ur Leukocyte Esterase (Negative) Urine WBC (0-5) /hpf Urine WBC Clumps (None) /hpf Urine Bacteria (None) /hpf Urine Mucus (None) /hpf Microbiology - Last 24 Hours (Table) 02/22/19 12:06 Urine Culture - Preliminary Urine,Voided Thrombosis Risk Factor Assmnt - Choose All That Apply Each Factor Represents 1 point: Obesity (BMI >25) Each Risk Factor Represents 2 Points: Age 61-74 years Thrombosis Risk Factor Assessment Total Risk Factor Score: 3 Thrombosis Risk Factor Assessment Level: Moderate Risk Assessment and Plan Assessment: 68-year-old male with complex past medical history including chronic hypoxic respiratory failure due to COPD on home oxygen paroxysmal A. fib on Eliquis Patient admitted as inpatient with anticipated length of stay more than 48 hours Due to worsening shortness of breath, computed tomography scan showed worsening mass lesion around his left hilar with cutting the left bronchus suggestive also of hepatic metastasis and adrenal mass. This time patient will be admitted for possible obstructive pneumonia versus aspiration pneumonia and we'll attempt to rule out other atypical causes of pneumonia like legionella disease and rickettsial disease due to his recurrent atypical presentations for pneumonia this time with elevated liver enzymes hyp onatremia and abdominal pain with some cloudy mental status. Patient recently had bronchoscopy done with pathology results from 02/18/2019 showing small cell lung cancer Plan: new diagnosis of lung cancer possible recurrent pneumonia , patient with multiple hospitalizations for pneumonia this time due to the fact that he received frequent courses of antibiotic to cover common pathogens. This time I would cover aspiration and obstructive pneumonia with Zosyn along with atypical pneumonias like legionella and rickettsial disease with doxycycline (await urine Legionella test, and thinking of rickettsial disease due to elevated liver enzymes hyponatremia and abdominal pain which are old vague symptoms however patient denies being in the outdoors anytime recently.) Consults oncology for new diagnosis of cancer Elevated liver enzymes possibly due to metastatic liver lesions, versus atypical pneumonias as mentioned above Check urine Legionella, creatinine kinase Hold statin Chronic anemia with hemoglobin trending down patient denies any GI bleeding patient is on blood thinners on Eliquis Computed tomography scan of the chest reviewed showed progressive changes with increase in mass size and infiltrations over the lower lobe on the left side suggesting extensive consolidations and increased mass size over the left hilar cutting the left upper bronchus, also suggestive of adrenal mass and hepatic metastasis. Along with diffuse increase in mediastinal lymphadenopathy Lactic acidosis secondary to above process Chronically elevated troponins currently his troponins are the lowest he has ever had, this been evaluated by cardiology in the past We'll continue to follow up and trend Chronic conditions Paroxysmal A. fib on Eliquis CAD/CVA COPD on home oxygen Diastolic CHF Hypertension Adrenal insufficiency Continue home meds Preformed a thorough record review from recent hospitalization recurrent hospitalizations for hypoxia metabolic encephalopathy and recurrent pneumonia Surrogate decision-maker: CODE STATUS: Full code DVT prophylaxis: On Eliquis for A. fib Discussed with: Patient, ER, RN Anticipated discharge: 48-[address]: Patient with possibly benefit from placement at subacute rehab A total of 65 minutes was spent on the care of this complex patient more than 50% of the time was spent in counseling and care coordination.
--- NOTE | 2019-02-23 00:10 | P.HPADDEND ---
H&P Addendum H&P Addendum Date: 02/22/19 Advanced Care Planning Active diagnoses: New diagnosis of small cell lung cancer Recurrent pneumonias Chronic hypoxic respiratory failure secondary to COPD on home oxygen Paroxysmal A. fib on blood thinners History of CAD and CVA Debility and advanced age Recurrent hospitalizations due to recurrent pneumonias Discussion: Person(s) present and participating in discussion: The patient, myself, and nursing staff Summary: I explained to the patient no findings of small cell lung cancer based on the most recent bronchoscopy answered patient's questions. He is concerned regarding his breathing increased work of breathing and hypoxemia. Which brought him to the hospital he suspecting recurrent pneumonia which she has been admitted for multiple times over the past couple months. I explained to the patient with CPR and resuscitation as what measures we use his familiar with intubations and mechanical ventilation. Which she required during his most recent hospitalization after bronchoscopy. Patient elected to be a full code at this time willing to pursue full CPR resuscitation and intubation if needed and to use IV pressors if appropriate and needed. He would not like any prolonged dependency on ventilatory machine of outcomes are poor. He named his is surrogate decision maker. Time spent: Total time spent face to face in education and discussion directly related to advanced care plannin minutes
[2019-02-23] MEDS: HYDROcodone/APAP 10-325MG 1 EACH TAB PO PRN ×3 (03:12→18:57)
[2019-02-23] MEDS: DILTIAZEM ORAL 30 MG TAB PO SCH ×4 (06:39→22:42)
[2019-02-23] MEDS: SODIUM CHLORIDE 0.9% 1,000 ML IV SCH ×2 (06:40→19:55)
[2019-02-23 06:53] LABS: Anisocytosis Slight; Basophils % (A) 0 %; Eosinophils # (A) 0.1 k/uL (0-0.7); Eosinophils % (A) 2 %; HCT 21.8 % (39.0-53.0); Hypochromasia Marked; Lymphocytes # (A) 1.1 k/uL (1.0-4.8); Lymphocytes % (A) 13 %; MCH 28.1 pg (25.0-35.0); MCHC 29.8 g/dL (31.0-37.0); Mean Platelet Volume 7.2; Monocytes # (A) 0.6 k/uL (0-1.0); Monocytes % (A) 7 %; Neutrophils # (A) 6.7 k/uL (1.3-7.7); Neutrophils % (A) 76 %; Platelet Count 254 k/uL (150-450); RBC 2.32 m/uL (4.30-5.90); RDW 17.7 % (11.5-15.5); WBC 8.8 k/uL (3.8-10.6)
[2019-02-23 06:57] LABS: HGB 6.5 gm/dL (13.0-17.5)
[2019-02-23] MEDS ORDERED: IPRATROPIUM 0.5 MG/2.5 ML NEBU INHALATION SCH (08:00)
[2019-02-23] MEDS ORDERED: IPRATROPIUM-ALBUTEROL 3 ML NEB INHALATION PRN (08:00)
[2019-02-23] MEDS: GABAPENTIN 400 MG CAP PO SCH ×4 (08:06→19:57)
[2019-02-23] MEDS: METOPROLOL TARTRATE 50 MG TAB PO SCH ×3 (08:06→22:42)
[2019-02-23] MEDS: APIXABAN 5 MG TAB PO SCH ×2 (08:06→19:56)
[2019-02-23] MEDS: IPRATROPIUM-ALBUTEROL 3 ML NEB INHALATION SCH ×4 (08:06→21:30)
[2019-02-23] MEDS: ASPIRIN 81 MG PO SCH (08:07)
[2019-02-23] MEDS: PIPERACILLIN-TAZOBACTAM 3.375 GM in SODIUM CHLORIDE 0.9% 100 ML IVPB SCH (08:08)
[2019-02-23] MEDS: DIGOXIN 250 MCG TAB PO SCH (08:11)
[2019-02-23] MEDS: DOXYCYCLINE 100 MG CAP PO SCH (08:11)
--- NOTE | 2019-02-23 08:49 | XR ---
EXAMINATION TYPE: XR chest 2V DATE OF EXAM: 02/23/2019 COMPARISON: 02/22/2019 HISTORY: 68 year-old male shortness of breath, pneumonia TECHNIQUE: AP and lateral views FINDINGS: Normal size. Silhouetting of the left hilum and increasing patchy and confluent opacity in the left m idlung. Slight improvement in aeration at the left base. No sizable effusion. IMPRESSION: Some shifting infiltrate on the left, worsening at the perihilar and left mid lung level. Slight impr ovement in aeration at the left base.
[2019-02-23] MEDS ORDERED: predniSONE 20 MG TAB PO SCH (09:00)
[2019-02-23] MEDS ORDERED: NON-FORMULARY DRUG (Omeprazole 20 MG) PO SCH (09:00)
[2019-02-23] MEDS ORDERED: PANTOPRAZOLE 40 MG/10 ML VIAL IV SCH (09:00)
--- NOTE | 2019-02-23 09:19 | CONS ---
CONSULTATION CHIEF COMPLAINT: Elevated troponin. Celso is a 68-year-old gentleman with history of COPD, chronic respiratory failure, CVA, paroxysmal atrial fibrillation, CAD, and diastolic heart failure, who has had recurrent hospitalizations with pneumonia and multiple outpatient antibiotic therapies who had recently been diagnosed with a left hilar mass. Came to the hospital due to worsening shortness of breath. A CT scan showed that the lung mass has increased and there is also a possibility of liver and adrenal masses. The patient had a troponin which was mildly elevated due to which Cardiology had been consulted. The patient is anemic and has multiple other problems. Elevated troponin is of no clinical significance and does not require further evaluation at this time. PAST MEDICAL HISTORY: Significant for coronary artery disease, hypertension, dyslipidemia, CVA, angina, TIA. PAST SURGICAL HISTORY: Past surgical history is as charted and includes hernia repair, joint replacement, adenoidectomy, back surgery, tonsillectomy. Past surgical history is also significant for knee replacement. SOCIAL HISTORY: He denies smoking, EtOH abuse or drug abuse. REVIEW OF SYSTEMS: HEENT is unremarkable. CARDIAC: As described above. RESPIRATORY: As described above. GI: Significant for abdominal discomfort. PSYCHOSOCIAL: Negative. ENDOCRINE: Negative. DERM: Negative. CONSTITUTIONAL: Significant for fatigue, tiredness. BEAM BUILDER: Negative. Rest of the system review is not relevant. CURRENT MEDICATIONS: Current medications include aspirin, Lipitor 80 q. daily, Flexeril, Eliquis 5 b.i.d., digoxin, Cardizem, metoprolol, Neurontin, Prilosec. ALLERGIES: Allergic to SINGULAIR. FAMILY HISTORY: Negative for premature coronary artery disease. PHYSICAL EXAMINATION: On exam, patient is comfortable at rest. Vital signs are stable. Chest exam shows diminished air entry in the left lung. Heart exam reveals first and second heart sounds. Has no gallop. Has systolic murmur at the left lower sternal border. Abdomen is soft. Examination of the extremities reveals bilateral pitting edema. Peripheral pulses are palpable. EKG shows sinus tachycardia with ST-segment depression, which could be due to the digoxin that the patient is on. The patient had a troponin of 0.03, but his troponins were elevated on his previous admissions also. The patient had an echo in December of 2018 that showed normal LV systolic function. ASSESSMENT: 1. Elevated troponin is of no clear clinical significance and does not require further evaluation at this time. 2. Paroxysmal atrial fibrillation. 3. Possible metastatic cancer. 4. Respiratory failure. 5. Coronary artery disease. PLAN: Continue with the current measures. Prognosis guarded. The patient has severe anemia with a hemoglobin of 6.5. Has elevated liver enzymes. The INR is normal at 1. MMODL / IJN: [id number] /
--- NOTE | 2019-02-23 10:17 | P.PN ---
Subjective Progress Note Date: 02/23/19 Principal diagnosis: Patient feels okay still short of breath no chest pain Constitutional: No acute distress, conversant, pleasant Eyes: Anicteric sclerae, moist conjunctiva, no lid-lag PERRLA ENMT: NC/AT Oropharynx clear, no erythema, exudates Neck: Supple, Lungs: crackly and wheezy bl Cardiovascular: Heart regular in rate and rhythm, No murmurs, gallops, or rubs No peripheral edema Abdominal: Soft Nontender, no guarding, rebound or rigidity Abdomen moving with respiration Normoactive bowel sounds No hepatomegaly, No splenomegaly No palpable mass No abdominal wall hernia noted Skin: Normal temperature, tone, texture, turgor No induration No subcutaneous nodules No rash, lesions No ulcers Extremities: No digital cyanosis No clubbing Pedal pulses intact and symmetrical Radial pulses intact and symmetrical Normal gait and station No calf tenderness Psychiatric:Alert and oriented to person, place and time Appropriate affect Intact judgement Neuro: New diagnosis of small cell lung cancer Recurrent pneumonias Overall stable continue patient on current antibiotics No evidence of distress at this time Chronic hypoxic respiratory failure secondary to COPD on home oxygen Paroxysmal A. fib on blood thinners History of CAD and CVA Debility and advanced age Recurrent hospitalizations due to recurrent pneumonias Objective - Vital Signs Vital signs: Vital Signs Temp 98 F 02/23/19 08:00 Pulse 80 02/23/19 08:16 Resp 18 02/23/19 08:00 BP 141/65 02/23/19 08:00 Pulse Ox 98 02/23/19 08:00 Intake & Output 02/22/19 02/23/19 02/23/19 18:59 06:59 18:59 Intake Total 360 Output Total 400 150 Balance -400 -150 360 Weight 108.862 kg 108 kg Intake: Oral 360 Output: Urine 400 150 Other: Voiding Method Urinal # Voids 1 # Bowel Movements 1 - Labs CBC & Chem 7: 02/23/19 06:20 02/22/19 12:06 Labs: Abnormal Lab Results - Last 24 Hours (Table) 02/22/19 02/22/19 02/22/19 Range/Units 12:06 12:06 12:06 WBC 12.7 H (3.8-10.6) k/uL RBC 2.85 L (4.30-5.90) m/uL Hgb 7.8 L (13.0-17.5) gm/dL Hct 25.7 L (39.0-53.0) % MCHC 30.5 L (31.0-37.0) g/dL RDW 17.7 H (11.5-15.5) % Neutrophils # 10.5 H (1.3-7.7) k/uL Lymphocytes # (1.0-4.8) k/uL APTT (22.0-30.0) sec Sodium 134 L (137-145) mmol/L BUN 26 H (9-20) mg/dL Glucose 189 H (74-99) mg/dL Plasma Lactic Acid Isaac 3.2 H* (0.7-2.0) mmol/L AST 246 H (17-59) U/L ALT 105 H (21-72) U/L Alkaline Phosphatase 356 H (38-126) U/L Troponin I (0.000-0.034) ng/mL Total Protein 5.7 L (6.3-8.2) g/dL Albumin 3.3 L (3.5-5.0) g/dL Urine Protein (Negative) Ur Leukocyte Esterase (Negative) Urine WBC (0-5) /hpf Urine WBC Clumps (None) /hpf Urine Bacteria (None) /hpf Urine Mucus (None) /hpf Crossmatch 02/22/19 02/22/19 02/22/19 Range/Units 12:06 12:06 12:06 WBC (3.8-10.6) k/uL RBC (4.30-5.90) m/uL Hgb (13.0-17.5) gm/dL Hct (39.0-53.0) % MCHC (31.0-37.0) g/dL RDW (11.5-15.5) % Neutrophils # (1.3-7.7) k/uL Lymphocytes # (1.0-4.8) k/uL APTT 20.5 L (22.0-30.0) sec Sodium (137-145) mmol/L BUN (9-20) mg/dL Glucose (74-99) mg/dL Plasma Lactic Acid Isaac (0.7-2.0) mmol/L AST (17-59) U/L ALT (21-72) U/L Alkaline Phosphatase (38-126) U/L Troponin I 0.035 H* (0.000-0.034) ng/mL Total Protein (6.3-8.2) g/dL Albumin (3.5-5.0) g/dL Urine Protein 1+ H (Negative) Ur Leukocyte Esterase Large H (Negative) Urine WBC 66 H (0-5) /hpf Urine WBC Clumps Few H (None) /hpf Urine Bacteria Few H (None) /hpf Urine Mucus Rare H (None) /hpf Crossmatch 02/22/19 02/22/19 02/22/19 Range/Units 13:22 13:22 13:22 WBC 12.1 H (3.8-10.6) k/uL RBC 2.69 L (4.30-5.90) m/uL Hgb 7.3 L (13.0-17.5) gm/dL Hct 24.9 L (39.0-53.0) % MCHC 29.4 L (31.0-37.0) g/dL RDW 17.5 H (11.5-15.5) % Neutrophils # 10.3 H (1.3-7.7) k/uL Lymphocytes # 0.7 L (1.0-4.8) k/uL APTT 21.3 L (22.0-30.0) sec Sodium (137-145) mmol/L BUN (9-20) mg/dL Glucose (74-99) mg/dL Plasma Lactic Acid Isaac (0.7-2.0) mmol/L AST (17-59) U/L ALT (21-72) U/L Alkaline Phosphatase (38-126) U/L Troponin I (0.000-0.034) ng/mL Total Protein (6.3-8.2) g/dL Albumin (3.5-5.0) g/dL Urine Protein (Negative) Ur Leukocyte Esterase (Negative) Urine WBC (0-5) /hpf Urine WBC Clumps (None) /hpf Urine Bacteria (None) /hpf Urine Mucus (None) /hpf Crossmatch See Detail 02/22/19 02/22/19 02/22/19 Range/Units 17:37 20:08 21:49 WBC (3.8-10.6) k/uL RBC (4.30-5.90) m/uL Hgb (13.0-17.5) gm/dL Hct (39.0-53.0) % MCHC (31.0-37.0) g/dL RDW (11.5-15.5) % Neutrophils # (1.3-7.7) k/uL Lymphocytes # (1.0-4.8) k/uL APTT 32.0 H (22.0-30.0) sec Sodium (137-145) mmol/L BUN (9-20) mg/dL Glucose (74-99) mg/dL Plasma Lactic Acid Isaac 3.3 H* 3.7 H* (0.7-2.0) mmol/L AST (17-59) U/L ALT (21-72) U/L Alkaline Phosphatase (38-126) U/L Troponin I (0.000-0.034) ng/mL Total Protein (6.3-8.2) g/dL Albumin (3.5-5.0) g/dL Urine Protein (Negative) Ur Leukocyte Esterase (Negative) Urine WBC (0-5) /hpf Urine WBC Clumps (None) /hpf Urine Bacteria (None) /hpf Urine Mucus (None) /hpf Crossmatch 02/23/19 Range/Units 06:20 WBC (3.8-10.6) k/uL RBC 2.32 L (4.30-5.90) m/uL Hgb 6.5 L* (13.0-17.5) gm/dL Hct 21.8 L (39.0-53.0) % MCHC 29.8 L (31.0-37.0) g/dL RDW 17.7 H (11.5-15.5) % Neutrophils # (1.3-7.7) k/uL Lymphocytes # (1.0-4.8) k/uL APTT (22.0-30.0) sec Sodium (137-145) mmol/L BUN (9-20) mg/dL Glucose (74-99) mg/dL Plasma Lactic Acid Isaac (0.7-2.0) mmol/L AST (17-59) U/L ALT (21-72) U/L Alkaline Phosphatase (38-126) U/L Troponin I (0.000-0.034) ng/mL Total Protein (6.3-8.2) g/dL Albumin (3.5-5.0) g/dL Urine Protein (Negative) Ur Leukocyte Esterase (Negative) Urine WBC (0-5) /hpf Urine WBC Clumps (None) /hpf Urine Bacteria (None) /hpf Urine Mucus (None) /hpf Crossmatch Microbiology - Last 24 Hours (Table) 02/22/19 12:06 Urine Culture - Preliminary Urine,Voided
--- NOTE | 2019-02-23 10:29 | CDI ---
Documentation Clarification Form Date: 02/23/2019 10:21:25 AM From: Ana MathurBorregoDENI abdul, CCDS Admit Date: 02/22/2019 3:55:00 PM Patient Name: Celso Khanna Visit Number: [id number] Discharge Date: ATTENTION: The Clinical Documentation Specialists (CDI) and [facility] Coding Staff appreciate your assistance in clarifying documentation. Please respond to the clarification below the line at the bottom and electronically sign. The CDI & [facility] Coding staff will review the response and follow-up if needed. Please note: Queries are made part of the Legal Health Record. If you have any questions, please contact the author of this message via ITS. Dr. Paul Macias: A diagnosis of anemia lacks specificity to accurately reflect your patients severity of condition and clarification is needed. Per the History & Physical: "Chronic anemia with hemoglobin trending down patient denies any GI bleeding patient is on blood thinners on Eliquis." History/Risk Factors: CAD, COPD on home O2 w/chronic hypoxic respiratory failure, Paroxysmal atrial fibrillation, Hypertension & Adrenal Insufficiency. Clinical indicators: Recently diagnosed with left hilar small cell lung CA, multiple admissions for pneumonia. Admitted now with recurrent pneumonia. Hemoglobin: 7.3* - 6.5^^ Hematocrit: 24.9* - 21.8* Treatment: Typed & Crossed for blood transfusion, IV fluid boluses x2, IV Heparin drip, INH Albuterol, Nitro sl, IV Rocephin, IV Zosyn & IV Levaquin. Anticoagulant continued: Eliquis. In order to capture the severity of condition, please clarify the type of anemia and etiology if known: Acute blood loss anemia Acute on chronic blood loss anemia Chronic blood loss anemia, please specify cause if known Hemolytic anemia Drug induced anemia Anemia due to malignancy Anemia of chronic disease, please specify chronic condition Unable to determine Other, please specify (Last Revision: May 2017) etiology not clear MTDD
--- NOTE | 2019-02-23 11:30 | P.CNPUL ---
History of Present Illness Consult date: 02/23/19 Reason for consult: dyspnea History of present illness: This is a pleasant 68-year-old male patient with advanced COPD, history of recurrent pneumonias and a recent diagnosis of small cell lung cancer based on a bronchoscopy that was done last week by our service. The patient mcpherson multiple medical problems and comorbidities. Is obese and he has COPD, coronary artery disease, history of CVA, history of paroxysmal atrial fibrillation and the p atient is on long-term and to coagulation with Eliquis and the patient also has history of diastolic heart failure. The patient has had previous bronchoscopies and previous infections with Klebsiella pneumoniae/ESBL producing organism based on a previous sputum cultures from 12/21/2018. The most recent bronchoscopy that was done on confirmed diagnoses based on some endobronchial abnormality seen in the left upper lobe. The patient was briefly intubated and placed on a mechanical ventilator following the bronchoscopy and following that he was weaned off the mechanical ventilator and he was discharged home few days ago. Following his discharge, the patient got short of breath again and he was having increased cough congestion and he was admitted for COPD exacerbation and suspected pneumonia. His cough and a thick yellowish sputum. He is currently on IV Zosyn. No fever. No chills. No chest pain. No hemoptysis. No pleurisy. He is aware of his recent diagnosis of small cell lung cancer. Chest x-ray shows left hilar fullness and consolidation of the left upper lobe and superimposed pneumonia is suspected at this point in time. A repeat CAT scan of the chest was done on 02/22/2019 and it showed breathing artifact, no evidence of any pulmonary embolism and that his COPD and pulmonary arterial hypertension and there is a mass encasing the left hilar area putting of the left upper lobe bronchus enlarging currently measuring 2.5 cm and there is also increase in diffuse mediastinal lymphadenopathy. This is consistent with small cell lung cancer. There is also new consolidation is quite extensive and the peripheral left lower lobe and pneumonia suspected this point in time. There is also increasing septal lines in the left upper lobe which could present pulmonary ve ssel congestion or even lymphangitic spread of the tumor. The left that he had gland measuring 1.3 cm versus 1.5 cm compared to previous evaluations. Review of Systems Constitutional: Denies lethargy, denies malaise, Reports weakness, Denies chi lls, Denies fever, no weight loss. No other Social symptoms for now. Eyes: denies blurred vision, denies pain Ears, nose, mouth and throat: Denies headache, Denies sore throat Cardiovascular: Denies chest pain, Denies shortness of breath Respiratory: Reports congestion, Reports cough with sputum, Reports dyspnea, Reports hemoptysis, Reports home oxygen, Reports respiratory infections, the patient has a congested cough. Gastrointestinal: Denies abdominal pain, Denies diarrhea, Denies nausea, Denies vomiting Musculoskeletal: Denies myalgias Integumentary: Denies pruritus, Denies rash Neurological: Reports change in mentation, Denies numbness, Denies weakness Psychiatric: Denies anxiety, Denies depression Endocrine: Denies fatigue, Denies weight change Past Medical History Past Medical History: Coronary Artery Disease (CAD), Cancer, Chest Pain / Angina, COPD, CVA/TIA, GERD/Reflux, Hyperlipidemia, Hypertension, Osteoarthritis (OA), Prostate Disorder Additional Past Medical History / Comment(s): COPD, coronary artery disease, CVA/TIA, acid reflux, hyperlipidemia, hypertension, osteoarthritis, BPH, vertigo, coronary artery disease, hiatal hernia, IBS, small cell lung cancer, diverticulosis with previous history of diverticulitis History of Any Multi-Drug Resistant Organisms: C-DIFF, ESBL Date of last positivie culture/infection: 12/23/18 MDRO Source:: Sputum MDRO ESBL,c-diff beginning of January 2019,currently symptom free Past Surgical History: Adenoidectomy, Back Surgery, Heart Catheterization, Hernia Repair, Joint Replacement, Orthopedic Surgery, Tonsillectomy Additional Past Surgical History / Comment(s): L knee replacement, back surgery x2-failed fusion and 2 rods in lower back, L/R cataract surgery, bilat. rib removal (cervical), carpal tunnel R wrist, colonoscopy, L elbow surgery, abdominal hernia repair, 3 R inguinal hernia repairs, L inguinal hernia repair, rectal cystectomy.pain pump(ms) implanted removed 11/06/2018 Past Anesthesia/Blood Transfusion Reactions: Previous Problems w/ Anesthesia Additional Past Anesthesia/Blood Transfusion Reaction / Comment(s): With first surgery became belligerent when waking up. Past Psychological History: No Psychological Hx Reported Additional Psychological History / Comment(s): Pt resides with his spouse. He uses a cane to ambulate. has nebulizer He drives. 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 Is no longer smoking. No animals in the home Smoking Status: Former smoker Past Alcohol Use History: None Reported Additional Past Alcohol Use History / Comment(s): Pt started smoking in 1962 and quit in May of 2018. Past Drug Use History: None Reported - Past Family History Mother Family Medical History: No Reported History Additional Family Medical History / Comment(s): Mother was healthy and lived to be 88 or 89yrs old. Father Family Medical History: Cancer Additional Family Medical History / Comment(s): Father of lung cancer in his early 70's. Medications and Allergies Home Medications Medication Instructions Recorded Confirmed Type Aspirin 81 mg PO DAILY 11/21/18 02/22/19 History Atorvastatin [Lipitor] 80 mg PO HS 11/21/18 02/22/19 History Cyclobenzaprine [Flexeril] 10 mg PO HS 11/30/18 02/22/19 History Apixaban [Eliquis] 5 mg PO BID #20 tab 12/03/18 02/22/19 Rx Digoxin 250 mcg PO DAILY #10 tablet 12/03/18 02/22/19 Rx Diltiazem HCl 90 mg PO Q6H #40 tablet 12/03/18 02/22/19 Rx Tamsulosin HCl [Flomax] 0.4 mg PO HS #20 capsule 12/03/18 02/22/19 Rx Tiotropium 18 Mcg/Puff [Spiriva] 1 puff INHALATION RT-DAILY 12/06/18 02/22/19 History Metoprolol Tartrate [Lopressor] 100 mg PO Q8H 01/11/19 02/22/19 History predniSONE 20 mg PO QAM 01/11/19 02/22/19 History Gabapentin [Neurontin] 400 mg PO QID #120 cap 01/16/19 02/22/19 Rx HYDROcodone/APAP 10-325MG [[place] 1 tab PO Q6H PRN #20 tab 01/16/19 02/22/19 Rx 10-325] Omeprazole [PriLOSEC] 20 mg PO QAM 02/02/19 02/22/19 History L.acidoph,Paracasei, B.lactis 1 cap PO DAILY 02/16/19 02/22/19 History [Probiotic] Multivitamins, Thera [Multivitamin 1 tab PO DAILY 02/16/19 02/22/19 History (formulary)] Allergies Allergy/AdvReac Type Severity Reaction Status Date / Time montelukast sodium AdvReac Itching Verified 02/22/19 11:21 [From [facility]] Physical Exam Vitals: Vital Signs Temp Pulse Pulse Resp BP BP Pulse Ox 02/23/19 10:40 98.1 F 72 20 142/65 98 02/23/19 10:30 97.8 F 73 20 139/64 98 02/23/19 08:16 80 02/23/19 08:06 88 02/23/19 08:00 98 F 80 20 141/65 98 02/23/19 03:43 78 18 02/23/19 03:42 98.0 F 78 18 113/63 98 02/22/19 23:52 109 H 18 02/22/19 23:50 98.9 F 109 H 18 127/57 97 02/22/19 20:00 97.8 F 107 H 19 143/63 94 L 02/22/19 18:00 103 H 22 02/22/19 16:53 97.7 F 113 H 22 159/69 92 L 02/22/19 16:15 98.4 F 103 H 20 155/69 95 02/22/19 11:48 107 H 02/22/19 11:26 104 H Intake and Output 02/22/19 02/23/19 02/23/19 22:59 06:59 14:59 Intake Total 360 Output Total 400 150 Balance -400 -150 360 Intake: Oral 360 Blood Product 0 Rc As-1 Unit 0 [id number] Output: Urine 400 150 Other: Voiding Method Urinal Urinal # Voids 1 # Bowel Movements 1 Weight 108 kg GENERAL EXAM: Alert, pleasant, 68-year-old male patient, the patient is obese, comfortable likely distress. Not using excessive muscle breathing. HEAD: Normocephalic/atraumatic. EYES: Normal reaction of pupils, equal size. Conjunctiva pink, sclera white. NOSE: Clear with pink turbinates. THROAT: No erythema or exudates. NECK: No masses, no JVD, no thyroid enlargement, no adenopathy. CHEST: No chest wall deformity. Symmetrical expansion. LUNGS: Diminished breath sounds, with the expiratory wheezes and rhonchi at the bases, more so on the left, and the patient has some crackles in the left lung base also. CVS: Regular rate and rhythm, normal S1 and S2, no gallops, no murmurs, no rubs ABDOMEN: Soft, nontender. No hepatosplenomegaly, normal bowel sounds, no guarding or rigidity. EXTREMITIES: No clubbing, no edema, no cyanosis, 2+ pulses and upper and lower extremities. MUSCULOSKELETAL: Muscle strength and tone normal. SPINE: No scoliosis or deformity SKIN: No rashes CENTRAL NERVOUS SYSTEM: No focal deficits, tone is normal in all 4 extremities. PSYCHIATRIC: Alert and oriented -3. Appropriate affect. Intact judgment and insight Results - Laboratory Findings CBC and BMP: 02/23/19 06:20 02/22/19 12:06 PT/INR, D-dimer PT 10.4 sec (9.0-12.0) 02/22/19 13:22 INR 1.0 (<1.2) 02/22/19 13:22 Abnormal lab findings: Abnormal Labs 02/22/19 02/22/19 02/22/19 12:06 12:06 12:06 WBC 12.7 H RBC 2.85 L Hgb 7.8 L Hct 25.7 L MCHC 30.5 L RDW 17.7 H Neutrophils # 10.5 H Lymphocytes # APTT Sodium 134 L BUN 26 H Glucose 189 H Plasma Lactic Acid Isaac 3.2 H* AST 246 H ALT 105 H Alkaline Phosphatase 356 H Troponin I Total Protein 5.7 L Albumin 3.3 L Urine Protein Ur Leukocyte Esterase Urine WBC Urine WBC Clumps Urine Bacteria Urine Mucus Crossmatch 02/22/19 02/22/19 02/22/19 12:06 12:06 12:06 WBC RBC Hgb Hct MCHC RDW Neutrophils # Lymphocytes # APTT 20.5 L Sodium BUN Glucose Plasma Lactic Acid Isaac AST ALT Alkaline Phosphatase Troponin I 0.035 H* Total Protein Albumin Urine Protein 1+ H Ur Leukocyte Esterase Large H Urine WBC 66 H Urine WBC Clumps Few H Urine Bacteria Few H Urine Mucus Rare H Crossmatch 02/22/19 02/22/19 02/22/19 13:22 13:22 13:22 WBC 12.1 H RBC 2.69 L Hgb 7.3 L Hct 24.9 L MCHC 29.4 L RDW 17.5 H Neutrophils # 10.3 H Lymphocytes # 0.7 L APTT 21.3 L Sodium BUN Glucose Plasma Lactic Acid Isaac AST ALT Alkaline Phosphatase Troponin I Total Protein Albumin Urine Protein Ur Leukocyte Esterase Urine WBC Urine WBC Clumps Urine Bacteria Urine Mucus Crossmatch See Detail 02/22/19 02/22/19 02/22/19 17:37 20:08 21:49 WBC RBC Hgb Hct MCHC RDW Neutrophils # Lymphocytes # APTT 32.0 H Sodium BUN Glucose Plasma Lactic Acid Isaac 3.3 H* 3.7 H* AST ALT Alkaline Phosphatase Troponin I Total Protein Albumin Urine Protein Ur Leukocyte Esterase Urine WBC Urine WBC Clumps Urine Bacteria Urine Mucus Crossmatch 02/23/19 06:20 WBC RBC 2.32 L Hgb 6.5 L* Hct 21.8 L MCHC 29.8 L RDW 17.7 H Neutrophils # Lymphocytes # APTT Sodium BUN Glucose Plasma Lactic Acid Isaac AST ALT Alkaline Phosphatase Troponin I Total Protein Albumin Urine Protein Ur Leukocyte Esterase Urine WBC Urine WBC Clumps Urine Bacteria Urine Mucus Crossmatch - Diagnostic Findings Chest x-ray: image reviewed Assessment and Plan Plan: 1 left lower lobe pneumonia as evident on the most recent CAT scan of the chest. Consider having hospital-acquired pathogens. The patient underwent recent bronchoscopy that was complicated by respiratory failure requiring intubation mechanical ventilation for brief period of time and patient was extubated and discharged home. He has been infected with Klebsiella pneumoniae, ESBL producing organism, and a sputum sample for microbiologic analysis. 2 small cell lung cancer with a left hilar mass in addition to mediastinal lymphadenopathy. 3 COPD \with an FEV1 of 1.59 L which is 40% predicted 4 chronic hypoxic respiratory failure secondary to above 5 chronic atrial fibrillation rate controlled on Eliquis 6 coronary artery disease 7 history of CVA/TIA 8 coronary artery disease 9 hypertension 10 hyperlipidemia 13 osteoarthritis 14 BPH 15 irritable bowel syndrome 16 [id number] smoking history quit in May 2018 Plan Obtain sputum Gram stain and culture. Discontinue the doxycycline is also put the patient IV Invanz. IV Solu-Medrol. Jeanette about treatments around the clock. Oncology consultation regarding his small cell lung cancer. We'll continue to follow. Prognosis poor based on his advanced COPD and multiple comorbidities in addition to a recent diagnosis of small cell lung cancer.
[2019-02-23 11:58] LABS: African American GFR (CKD) >90 (>60 ml/min/1.73 sqM); Anion Gap 3 mmol/L; Blood Urea Nitrogen 21 mg/dL (9-20); Calcium 8.8 mg/dL (8.4-10.2); Carbon Dioxide 29 mmol/L (22-30); Chloride 105 mmol/L (98-107); Glucose 95 mg/dL (74-99); Potassium 4.1 mmol/L (3.5-5.1); Sodium 137 mmol/L (137-145)
[2019-02-23] MEDS: methylPREDNISolone SOD SUCCI 40 MG/ML 1 ML VIAL IV SCH ×3 (12:52→22:43)
[2019-02-23] MEDS: ERTAPENEM 1 GM in SODIUM CHLORIDE 0.9% 50 ML IVPB SCH (13:31)
[2019-02-23] MEDS: MORPHINE SULFATE 4 MG/ML SYRINGE IV PRN (14:44)
[2019-02-23 15:40] LABS: Anisocytosis Slight; Basophils % (A) 0 %; Eosinophils # (A) 0.1 k/uL (0-0.7); Eosinophils % (A) 1 %; HCT 25.5 % (39.0-53.0); HGB 7.3 gm/dL (13.0-17.5); Hypochromasia Marked; Lymphocytes # (A) 0.7 k/uL (1.0-4.8); Lymphocytes % (A) 8 %; MCHC 28.8 g/dL (31.0-37.0); MCV 93.5 fL (80.0-100.0); Mean Platelet Volume 7.4; Monocytes # (A) 0.4 k/uL (0-1.0); Monocytes % (A) 4 %; Neutrophils # (A) 7.8 k/uL (1.3-7.7); Neutrophils % (A) 86 %; Platelet Count 245 k/uL (150-450); Poikilocytosis Slight; RBC 2.73 m/uL (4.30-5.90); RDW 17.3 % (11.5-15.5)
[2019-02-23] MEDS: IOPAMIDOL-300 CONTRAST 30 ML VIAL (ORAL USE) PO PRN ×2 (16:00→16:47)
--- NOTE | 2019-02-23 16:56 | P.CONS ---
History of Present Illness - Reason for Consult Consult date: 02/23/19 Small cell lung cancer Requesting physician: Perlita Bain - Chief Complaint Short of breath, difficulty breathing - History of Present Illness Mr. Khanna is a very pleasant 68-year-old male who states he has been short of breath "for years". In November 2018 patient had a pain pump removal, here at [facility], CT of the abdomen and pelvis showed some soft tissue swelling in the site of pain pump removal. Patient had a CTA on 11/22 due to respiratory distress, no PE was found, left lower lobe there was a 1.3 cm nodule with some borderline hilar adenopathy, recommended CT follow-up. Patient was back in the emergency department on 11/30 with shortness of breath/difficulty in breathing, he was coming from the [facility], diagnosed with COPD exacerbation, treated with improvement in symptoms and discharged. On 12/06/2018 emergency department visit for difficulty in breathing, COPD exacerbation with foreign body removal of a 6 inch plastic tube from the right oropharynx. 12/10 in the emergency Department due to abnormal labs, he had a lactic acid of 14 and the primary care office, it was 6.4 in the ER, patient was discharged with follow-up to his PCP. On 12/12 in the emergency department with shortness of breath, diagnosed with COPD exacerbation and elevated troponins. Patient was treated and discharged. On 12/20 patient was in the emergency de partment with shortness of breath, CT AP had no abnormalities, chest x-ray showed diffuse opacities. 01/11/2019 patient in the emergency room for fall and altered mental status, CT chest was performed, a left upper lobe 1.8 cm nodule with mediastinal and left hilar adenopathy as well as a left adrenal nodule were noted. Bronch and biopsy during that visit, pathology was nondiagnostic. On 02/02/2019 patient was in the emergency department with shortness of breath and difficulty in breathing. CT of the chest described increasing in size of the previously aformentioned sites. On 02/18 he had a bronchoscopy with Dr. Bravo, this pathology came back positive for small cell lung cancer. On 02/18 Dr. Bravo's note states he has plans to see patient and refer him to oncology. Patient back in the emergency department on 02/22 with shortness of breath. We have been asked to see him while he is inpatient. Patient quit smoking last year in May, he has a history of a TIA, he denies any weight loss, difficulty in swallowing, hemoptysis, swelling in the neck or axilla, he is having right upper quadrant pain that radiates towards back, his appetite is fair to good, denies nausea, vomiting, acute bowel or bladder habits, some mild swelling in his lower legs, he denies any notable changes in his energy levels. Past Medical History Past Medical History: Coronary Artery Disease (CAD), Cancer, Chest Pain / Angina, COPD, CVA/TIA, GERD/Reflux, Hyperlipidemia, Hypertension, Osteoarthritis (OA), Prostate Disorder Additional Past Medical History / Comment(s): COPD, coronary artery disease, CVA/TIA, acid reflux, hyperlipidemia, hypertension, osteoarthritis, BPH, vertigo, coronary artery disease, hiatal hernia, IBS, small cell lung cancer, diverticulosis with previous history of diverticulitis History of Any Multi-Drug Resistant Organisms: C-DIFF, ESBL Year Discovered:: 12/23/18 MDRO Source:: Sputum MDRO ESBL,c-diff beginning of January 2019,currently symptom free Past Surgical History: Adenoidectomy, Back Surgery, Heart Catheterization, Hernia Repair, Joint Replacement, Orthopedic Surgery, Tonsillectomy Additional Past Surgical History / Comment(s): L knee replacement, back surgery x2-failed fusion and 2 rods in lower back, L/R cataract surgery, bilat. rib removal (cervical), carpal tunnel R wrist, colonoscopy, L elbow surgery, abdominal hernia repair, 3 R inguinal hernia repairs, L inguinal hernia repair, rectal cystectomy.pain pump(ms) implanted removed 11/06/2018 Past Anesthesia/Blood Transfusion Reactions: Previous Problems w/ Anesthesia Additional Past Anesthesia/Blood Transfusion Reaction / Comm: With first surgery became belligerent when waking up. Past Psychological History: No Psychological Hx Reported Additional Psychological History / Comment(s): Pt resides with his spouse. He uses a cane to ambulate. has nebulizer He drives. 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 Is no longer smoking. No animals in the home Smoking Status: Former smoker Past Alcohol Use History: None Reported Additional Past Alcohol Use History / Comment(s): Pt started smoking in 1962 and quit in May of 2018. Past Drug Use History: None Reported - Past Family History Mother Family Medical History: No Reported History Additional Family Medical History / Comment(s): Mother was healthy and lived to be 88 or 89yrs old. Father Family Medical History: Cancer Additional Family Medical History / Comment(s): Father of lung cancer in his early 70's. Medications and Allergies Home Medications Medication Instructions Recorded Confirmed Type Aspirin 81 mg PO DAILY 11/21/18 02/22/19 History Atorvastatin [Lipitor] 80 mg PO HS 11/21/18 02/22/19 History Cyclobenzaprine [Flexeril] 10 mg PO HS 11/30/18 02/22/19 History Apixaban [Eliquis] 5 mg PO BID #20 tab 12/03/18 02/22/19 Rx Digoxin 250 mcg PO DAILY #10 tablet 12/03/18 02/22/19 Rx Diltiazem HCl 90 mg PO Q6H #40 tablet 12/03/18 02/22/19 Rx Tamsulosin HCl [Flomax] 0.4 mg PO HS #20 capsule 12/03/18 02/22/19 Rx Tiotropium 18 Mcg/Puff [Spiriva] 1 puff INHALATION RT-DAILY 12/06/18 02/22/19 History Metoprolol Tartrate [Lopressor] 100 mg PO Q8H 01/11/19 02/22/19 History predniSONE 20 mg PO QAM 01/11/19 02/22/19 History Gabapentin [Neurontin] 400 mg PO QID #120 cap 01/16/19 02/22/19 Rx HYDROcodone/APAP 10-325MG [[place] 1 tab PO Q6H PRN #20 tab 01/16/19 02/22/19 Rx 10-325] Omeprazole [PriLOSEC] 20 mg PO QAM 02/02/19 02/22/19 History L.acidoph,Paracasei, B.lactis 1 cap PO DAILY 02/16/19 02/22/19 History [Probiotic] Multivitamins, Thera [Multivitamin 1 tab PO DAILY 02/16/19 02/22/19 History (formulary)] Allergies Allergy/AdvReac Type Severity Reaction Status Date / Time montelukast sodium AdvReac Itching Verified 02/22/19 11:21 [From Singulair] Physical Exam Vitals: Vital Signs Temp Pulse Pulse Resp BP BP Pulse Ox 07/23/19 13:38 98.2 F 72 18 138/67 97 02/23/19 12:01 92 16 02/23/19 11:48 90 16 02/23/19 11:20 97.7 F 71 18 139/63 98 02/23/19 11:10 97.7 F 71 20 139/63 981 H 02/23/19 10:40 98.1 F 72 20 142/65 98 02/23/19 10:30 97.8 F 73 20 139/64 98 02/23/19 08:16 80 02/23/19 08:06 88 02/23/19 08:00 98 F 80 20 141/65 98 02/23/19 03:43 78 18 02/23/19 03:42 98.0 F 78 18 113/63 98 02/22/19 23:52 109 H 18 02/22/19 23:50 98.9 F 109 H 18 127/57 97 02/22/19 20:00 97.8 F 107 H 19 143/63 94 L 02/22/19 18:00 103 H 22 02/22/19 16:53 97.7 F 113 H 22 159/69 92 L Intake and Output 02/23/19 02/23/19 02/23/19 06:59 14:59 22:59 Intake Total 670 Output Total 150 Balance -150 670 Intake: Oral 360 Blood Product 310 Rc As-1 Unit 310 [id number] Output: Urine 150 Other: Voiding Method Urinal Urinal # Voids 1 # Bowel Movements 1 Weight 108 kg Results CBC & Chem 7: 02/23/19 15:30 02/23/19 06:20 Labs: Abnormal Lab Results - Last 24 Hours (Table) 02/22/19 02/22/19 02/22/19 Range/Units 13:22 17:37 20:08 RBC (4.30-5.90) m/uL Hgb (13.0-17.5) gm/dL Hct (39.0-53.0) % MCHC (31.0-37.0) g/dL RDW (11.5-15.5) % Neutrophils # (1.3-7.7) k/uL Lymphocytes # (1.0-4.8) k/uL APTT 32.0 H (22.0-30.0) sec BUN (9-20) mg/dL Plasma Lactic Acid Isaac 3.3 H* (0.7-2.0) mmol/L Crossmatch See Detail 02/22/19 02/23/19 02/23/19 Range/Units 21:49 06:20 06:20 RBC 2.32 L (4.30-5.90) m/uL Hgb 6.5 L* (13.0-17.5) gm/dL Hct 21.8 L (39.0-53.0) % MCHC 29.8 L (31.0-37.0) g/dL RDW 17.7 H (11.5-15.5) % Neutrophils # (1.3-7.7) k/uL Lymphocytes # (1.0-4.8) k/uL APTT (22.0-30.0) sec BUN 21 H (9-20) mg/dL Plasma Lactic Acid Isaac 3.7 H* (0.7-2.0) mmol/L Crossmatch 02/23/19 Range/Units 15:30 RBC 2.73 L (4.30-5.90) m/uL Hgb 7.3 L (13.0-17.5) gm/dL Hct 25.5 L (39.0-53.0) % MCHC 28.8 L (31.0-37.0) g/dL RDW 17.3 H (11.5-15.5) % Neutrophils # 7.8 H (1.3-7.7) k/uL Lymphocytes # 0.7 L (1.0-4.8) k/uL APTT (22.0-30.0) sec BUN (9-20) mg/dL Plasma Lactic Acid Isaac (0.7-2.0) mmol/L Crossmatch Microbiology - Last 24 Hours (Table) 02/22/19 12:06 Blood Culture - Preliminary Blood No Growth after 24 hours 02/22/19 12:06 Urine Culture - Preliminary Urine,Voided Assessment and Plan (1) Small cell lung cancer Narrative/Plan: Dr. Harris reviewed patient's diagnosis with him. Recent biopsy on 02/15 was positive for small cell lung cancer. Imaging suggests that there are already numerous hepatic metastasis. He was explained to patient that small cell lung cancer is typically an aggressive malignancy. Treatment includes a combination of chemotherapy and immunotherapy with the treatment intent being palliative in nature, to prolonged survival and decrease symptoms of malignancy. He discussed that small cell lung cancer is not a cancer that is considered for surgical resection. Reviewed prognosis without treatment- people are averaging 3-4 months while with treatment, including immunotherapy, people are now living up to one year. Discussed completing staging work up with a brain MRI, nuclear medicine bone scan, CT of the abdomen and pelvis. Patient did verbalize understanding most of what was explained to him. Plan is to meet with the patient and his tomorrow to go over everything again as well as any imaging results that are available. Current Visit: Yes Status: Acute Priority: High Code(s): C34.90 - MALIGNA NT NEOPLASM OF UNSP PART OF UNSP BRONCHUS OR LUNG SNOMED Code(s): 718070300 (2) Transaminitis Narrative/Plan: Related to malignancy, question any underlying liver disease. Based on staging workup and follow-up on patient's liver function testing, patient could be experiencing of a visceral crisis. That situation would warrant urgent administration of chemotherapy. We'll follow closely, labs in the a.m., further recommendations to follow. Current Visit: Yes Status: Acute Priority: High Code(s): R74.0 - NONSPEC ELEV OF LEVELS OF TRANSAMNS & LACTIC ACID DEHYDRGNSE SNOMED Code(s): 724691904 (3) Cancer-related pain Narrative/Plan: Patient is currently on oral [place], this is not providing any significant relief. Patient has parenteral morphine ordered already. We'll see how much medication the patient uses in the next 24 hours and convert to oral. Meds for prevention of narcotic induced constipation. Current Visit: Yes Status: Acute Priority: High Code(s): G89.3 - NEOPLASM RELATED PAIN (ACUTE) (CHRONIC) SNOMED Code(s): 04503323436026 (4) Normocytic normochromic anemia Narrative/Plan: 1 unit of packed red blood cells transfused today for hemoglobin less than 7. In studies have been ordered. Suspect that the anemia is related to malignancy/inflammation is in poor bone marrow response. We'll follow up in the a.m. on labs, supplements as appropriate, packed red blood cells for hemoglobin less than 7 unless patient is symptomatic. Current Visit: Yes Status: Acute Priority: High Code(s): D64.9 - ANEMIA, UNSPECIFIED SNOMED Code(s): 98305658 Plan: Doctor attests: I performed a history and physical examination of this patient with dictator, developed impression and plan of care. I agree with dictators note, documented as a scribe.
[2019-02-23 17:12] LABS: Glucose,Whole Blood 196 mg/dL (75-99)
--- NOTE | 2019-02-23 17:52 | ECHOF ---
Referral Reason:elevated troponins MEASUREMENTS -------- HEIGHT: 177.8 cm WEIGHT: 108.0 kg BP: 161/65 RVIDd: 4.3 cm (< 3.3) IVSd: 1.6 cm (0.6 - 1.1) LVIDd: 4.4 cm (3.9 - 5.3) LVPWd: 1.3 cm (0.6 - 1.1) IVSs: 2.3 cm LVIDs: 3.3 cm LVPWs: 1.6 cm LA Diam: 4.3 cm (2.7 - 3.8) Ao Diam: 3.5 cm (2.0 - 3.7) AV Cusp: 3.2 cm (1.5 - 2.6) LA Diam: 4.5 cm (2.7 - 3.8) MV EXCURSION: 15.488 mm (> 18.000) MV EF SLOPE: 84 mm/s (70 - 150) EPSS: 0.6 cm MV E Fred: 1.71 m/s MV DecT: 325 ms MV A Fred: 1.46 m/s MV E/A Ratio: 1.17 RAP: 5.00 mmHg RVSP: 63.06 mmHg FINDINGS -------- Sinus rhythm. This was a technically adequate study. Grossly normal LV size and systolic function. Unable to comment on regional wall motion. The left v entricular size is normal. There is mild concentric left ventricular hypertrophy. Overall left ve ntricular systolic function is normal with, an EF between 55 - 60 %. The right ventricle is mild to moderately enlarged. The right ventricular systolic function is norm al. The left atrium is mildly dilated. The right atrium is normal in size. Interatrial and interventricular septum intact. The aortic valve is trileaflet, and appears structurally normal. No aortic stenosis or regurgitation. The mitral valve is normal. No mitral regurgitation. The tricuspid valve appears structurally normal. [id number] tricuspid regurgitation present. There is moderate pulmonary hypertension. The right ventricular systolic pressure, as measured by Doppler, is 63.06mmHg. Pulmonic valve appears structurally normal. The aortic root, ascending aorta and aortic arch are normal. The pericardium is normal. CONCLUSIONS -------- 1. Sinus rhythm. 2. This was a technically adequate study. 3. Grossly normal LV size and systolic function. Unable to comment on regional wall motion. 4. The left ventricular size is normal. 5. There is mild concentric left ventricular hypertrophy. 6. Overall left ventricular systolic function is normal with, an EF between 55 - 60 %. 7. The right ventricle is mild to moderately enlarged. 8. The right ventricular systolic function is normal. 9. The left atrium is mildly dilated. 10. The right atrium is normal in size. 11. Interatrial and interventricular septum intact. 12. The aortic valve is trileaflet, and appears structurally normal. No aortic stenosis or regurgitat ion. 13. The mitral valve is normal. 14. No mitral regurgitation. 15. The tricuspid valve appears structurally normal. 16. [id number] tricuspid regurgitation present. 17. There is moderate pulmonary hypertension. 18. The right ventricular systolic pressure, as measured by Doppler, is 63.06mmHg. 19. Pulmonic valve appears structurally normal. 20. The aortic root, ascending aorta and aortic arch are normal. 21. The pericardium is normal. CPHT: Myles Carter RDCS
[2019-02-23] MEDS: INSULIN ASPART (NovoLOG) 100 UNIT/ML VIAL SQ SCH ×2 (18:54→20:10)
[2019-02-23 19:02] LABS: Iron Saturation 15.53 (15.00-50.00)
[2019-02-23] MEDS: CYCLOBENZAPRINE 10 MG TAB PO SCH (19:56)
[2019-02-23] MEDS: TAMSULOSIN 0.4 MG CAP.ER.24H PO SCH (19:57)
[2019-02-23 20:03] LABS: Glucose,Whole Blood 258 mg/dL (75-99)
--- NOTE | 2019-02-23 23:05 | NM ---
EXAMINATION TYPE: NM bone scan whole body DATE OF EXAM: 02/23/2019 COMPARISON: NONE HISTORY: SCLC, initial staging TECHNIQUE: Delayed whole-body scanning was performed following the injection of 23.1 mCi Tc 99m MDP. Images acquired 3 hours post injection. FINDINGS: There is a focus of moderately increased radiopharmaceutical activity corresponding to the left ankle laterally. The January 11, 2019 radiographs show nondisplaced distal fibular fracture, accoun ting for the increased radiopharmaceutical activity. Mildly increased right knee radiopharmaceutical activity noted, consistent with degenerative joint ch anges. The remainder of the distribution of the radiopharmaceutical activity throughout the skeletal structu res is unremarkable. IMPRESSION: Negative for osseous metastatic disease.
--- NOTE | 2019-02-23 23:24 | CT ---
EXAMINATION TYPE: CT abdomen pelvis w con DATE OF EXAM: 02/23/2019 COMPARISON: 12/20/2018 HISTORY: new dx lung ca CT DLP: 1592 mGycm Automated exposure control for dose reduction was used. TECHNIQUE: Helical acquisition of images was performed from the lung bases through the pelvis. CONTRAST: Performed with Oral Contrast and with IV Contrast, patient injected with 100 mL of Isovue 3 00. FINDINGS: LUNG BASES: No significant abnormality is appreciated. LIVER: New since the previous study are innumerable 5 mm hypodense lesions, riddled throughout the ri ght and left lobe of the liver. GB/BILIARY: No significant abnormality is appreciated. PANCREAS: No significant abnormality is seen. SPLEEN: No significant abnormality is seen. ADRENALS: No significant abnormality is seen. KIDNEYS: No significant abnormality is seen. FREE AIR: No free air is visualized. RETROPERITONEAL ADENOPATHY: None visualized REPRODUCTIVE ORGANS: No significant abnormality is seen URINARY BLADDER: No significant abnormality is seen. PELVIC ADENOPATHY: None visualized. OSSEOUS STRUCTURES: No significant abnormality is seen. BOWEL: No significant abnormality is seen. OTHER: No acute vascular findings. IMPRESSION: Innumerable 5 mm hypodense lesions throughout the right and left hepatic lobes, not seen on the prior studies.
[2019-02-24] MEDS ORDERED: FUROSEMIDE 10 MG/ML 4 ML VIAL IV STA (01:55)
[2019-02-24] MEDS ORDERED: FUROSEMIDE 10 MG/ML 4 ML VIAL ONE (01:56)
[2019-02-24] MEDS: HYDROcodone/APAP 10-325MG 1 EACH TAB PO PRN ×3 (02:02→22:42)
[2019-02-24 06:27] LABS: Glucose,Whole Blood 203 mg/dL (75-99)
[2019-02-24] MEDS: INSULIN ASPART (NovoLOG) 100 UNIT/ML VIAL SQ SCH ×4 (06:28→20:34)
[2019-02-24] MEDS: methylPREDNISolone SOD SUCCI 40 MG/ML 1 ML VIAL IV SCH ×2 (06:29→12:43)
[2019-02-24] MEDS: DILTIAZEM ORAL 30 MG TAB PO SCH ×4 (06:29→22:41)
[2019-02-24 07:37] LABS: Anisocytosis Slight; Basophils % (A) 0 %; Eosinophils % (A) 0 %; HCT 23.5 % (39.0-53.0); Hypochromasia Marked; Lymphocytes # (A) 0.8 k/uL (1.0-4.8); Lymphocytes % (A) 7 %; MCHC 29.9 g/dL (31.0-37.0); MCV 93.6 fL (80.0-100.0); Mean Platelet Volume 7.7; Monocytes # (A) 0.5 k/uL (0-1.0); Monocytes % (A) 5 %; Neutrophils # (A) 9.4 k/uL (1.3-7.7); Neutrophils % (A) 86 %; Platelet Count 271 k/uL (150-450); Poikilocytosis Slight; RBC 2.51 m/uL (4.30-5.90); RDW 17.4 % (11.5-15.5); WBC 10.9 k/uL (3.8-10.6)
[2019-02-24 07:56] LABS: Albumin 2.7 g/dL (3.5-5.0); Calcium 9.2 mg/dL (8.4-10.2); Potassium 4.3 mmol/L (3.5-5.1); Total Bilirubin 0.4 mg/dL (0.2-1.3); Total Protein 5.1 g/dL (6.3-8.2)
[2019-02-24] MEDS: IPRATROPIUM-ALBUTEROL 3 ML NEB INHALATION SCH ×4 (08:02→19:22)
[2019-02-24] MEDS: METOPROLOL TARTRATE 50 MG TAB PO SCH ×3 (08:30→22:42)
[2019-02-24] MEDS: ASPIRIN 81 MG PO SCH (08:30)
[2019-02-24] MEDS: DIGOXIN 250 MCG TAB PO SCH (08:30)
[2019-02-24] MEDS: GABAPENTIN 400 MG CAP PO SCH ×4 (08:31→20:33)
[2019-02-24] MEDS: ERTAPENEM 1 GM in SODIUM CHLORIDE 0.9% 50 ML IVPB SCH (08:31)
[2019-02-24] MEDS ORDERED: PANTOPRAZOLE 40 MG TABLET PO SCH (09:00)
--- NOTE | 2019-02-24 10:06 | P.PN ---
Subjective Progress Note Date: 02/24/19 Principal diagnosis: Patient feels weak today did have multiple episodes of rectal bleeding or black stool shortness of breath improved No chest pain Constitutional: gweakness Eyes: Anicteric sclerae, moist conjunctiva, no lid-lag PERRLA ENMT: NC/AT Oropharynx clear, no erythema, exudates Neck: Supple, FROM, no masses, or JVD No carotid bruits No thyromegaly Lungs: Clear to auscultation Clear to percussion Normal respiratory effort, no accessory muscle use Cardiovascular: Heart regular in rate and rhythm, No murmurs, gallops, or rubs No peripheral edema Abdominal: Soft Nontender, no guarding, rebound or rigidity Abdomen moving with respiration Normoactive bowel sounds No hepatomegaly, No splenomegaly No palpable mass No abdominal wall hernia noted Skin: Normal temperature, tone, Extremities: No digital cyanosis Psychiatric:Alert and oriented to person, place and time Appropriate affect Intact judgement Neuro: g weakness New diagnosis of small cell lung cancer Recurrent pneumonias Overall stable continue patient on current antibiotics No evidence of distress at this time Chronic hypoxic respiratory failure secondary to COPD on home oxygen Paroxysmal A. fib We will stop 0 total and aspirin due to the active GI bleeding History of CAD and CVA Debility and advanced age Recurrent hospitalizations due to recurrent pneumonias Active GI bleed we'll transfuse 2 units of packed RBCs we will consult GI for the patient on IV Protonix Objective - Vital Signs Vital signs: Vital Signs Temp 97.5 F L 02/24/19 08:00 Pulse 74 02/24/19 08:14 Resp 16 02/24/19 08:00 BP 161/70 02/24/19 08:00 Pulse Ox 96 02/24/19 08:00 Intake & Output 02/23/19 02/24/19 02/24/19 18:59 06:59 18:59 Intake Total 670 10 232 Output Total 250 Balance 670 -240 232 Weight 107.7 kg Intake: IV 10 10 Invasive Line 4 10 10 Oral 360 222 Blood Product 310 Rc As-1 Unit 310 [id number] Output: Urine 250 Other: Voiding Method Urinal Urinal # Voids 200 1 # Bowel Movements 1 5 - Labs CBC & Chem 7: 02/24/19 06:33 02/24/19 06:33 Labs: Abnormal Lab Results - Last 24 Hours (Table) 02/22/19 02/23/19 02/23/19 Range/Units 13:22 06:20 15:30 WBC (3.8-10.6) k/uL RBC 2.73 L (4.30-5.90) m/uL Hgb 7.3 L (13.0-17.5) gm/dL Hct 25.5 L (39.0-53.0) % MCHC 28.8 L (31.0-37.0) g/dL RDW 17.3 H (11.5-15.5) % Neutrophils # 7.8 H (1.3-7.7) k/uL Lymphocytes # 0.7 L (1.0-4.8) k/uL BUN 21 H (9-20) mg/dL Glucose (74-99) mg/dL POC Glucose (mg/dL) (75-99) mg/dL Iron (65-175) ug/dL AST (17-59) U/L ALT (21-72) U/L Alkaline Phosphatase (38-126) U/L Total Protein (6.3-8.2) g/dL Albumin (3.5-5.0) g/dL Crossmatch See Detail 02/23/19 02/23/19 02/23/19 Range/Units 15:30 17:10 20:01 WBC (3.8-10.6) k/uL RBC (4.30-5.90) m/uL Hgb (13.0-17.5) gm/dL Hct (39.0-53.0) % MCHC (31.0-37.0) g/dL RDW (11.5-15.5) % Neutrophils # (1.3-7.7) k/uL Lymphocytes # (1.0-4.8) k/uL BUN (9-20) mg/dL Glucose (74-99) mg/dL POC Glucose (mg/dL) 196 H 258 H (75-99) mg/dL Iron 41 L (65-175) ug/dL AST (17-59) U/L ALT (21-72) U/L Alkaline Phosphatase (38-126) U/L Total Protein (6.3-8.2) g/dL Albumin (3.5-5.0) g/dL Crossmatch 02/24/19 02/24/19 02/24/19 Range/Units 06:25 06:33 06:33 WBC 10.9 H (3.8-10.6) k/uL RBC 2.51 L (4.30-5.90) m/uL Hgb 7.0 L (13.0-17.5) gm/dL Hct 23.5 L (39.0-53.0) % MCHC 29.9 L (31.0-37.0) g/dL RDW 17.4 H (11.5-15.5) % Neutrophils # 9.4 H (1.3-7.7) k/uL Lymphocytes # 0.8 L (1.0-4.8) k/uL BUN 22 H (9-20) mg/dL Glucose 176 H (74-99) mg/dL POC Glucose (mg/dL) 203 H (75-99) mg/dL Iron (65-175) ug/dL AST 169 H (17-59) U/L ALT 80 H (21-72) U/L Alkaline Phosphatase 279 H (38-126) U/L Total Protein 5.1 L (6.3-8.2) g/dL Albumin 2.7 L (3.5-5.0) g/dL Crossmatch Microbiology - Last 24 Hours (Table) 02/23/19 16:30 Gram Stain - Preliminary Sputum Sputum Culture - Preliminary 02/22/19 12:06 Urine Culture - Preliminary Urine,Voided Gram Neg Bacilli 02/22/19 12:06 Blood Culture - Preliminary Blood No Growth after 24 hours
[2019-02-24] MEDS: APIXABAN 5 MG TAB PO SCH (10:07)
[2019-02-24] MEDS: PANTOPRAZOLE 40 MG/10 ML VIAL IVP SCH ×2 (10:07→20:33)
[2019-02-24 11:46] LABS: Glucose,Whole Blood 299 mg/dL (75-99)
--- NOTE | 2019-02-24 12:13 | P.PN ---
Subjective Progress Note Date: 02/24/19 This is a 68-year-old gentleman with history of COPD, chronic respiratory failure, CVA, paroxysmal atrial fibrillation, coronary artery disease, diastolic congestive heart failure, chronic, who has had recurrent hospitalizations with pneumonia and multiple outpatient antibiotic therapies and was recently diagnosed with small cell lung CA. Is also noted that the patient has metastases to the liver. Oncology is scheduled to discuss the patient's situation today with the daughter and patient.heard ALT consultation was initially requested because of abnormal troponins, the patient was seen by Dr. Low yesterday. He denies any chest discomfort but states he had diarrhea for most of the night last night and does have a history of C. diff in the past. Hemodynamically he is stable, his echo showed a normal ejection fraction of 55- 60%. Objective - Vital Signs Vital signs: Vital Signs Temp 97.5 F L 02/24/19 08:00 Pulse 67 02/24/19 11:12 Resp 18 02/24/19 11:12 BP 140/63 02/24/19 11:11 Pulse Ox 98 02/24/19 11:11 Intake & Output 02/23/19 02/24/19 02/24/19 18:59 06:59 18:59 Intake Total 670 10 242 Output Total 250 Balance 670 -240 242 Weight 107.7 kg Intake: IV 10 20 Invasive Line 4 10 20 Oral 360 222 Blood Product 310 Rc As-1 Unit 310 [id number] Output: Urine 250 Other: Voiding Method Urinal Urinal # Voids 200 1 # Bowel Movements 1 5 - Exam PHYSICAL EXAMINATION: 68-year-old gentleman in no acute distress at the time of my examination GENERAL: HEENT: Head is atraumatic, normocephalic. Pupils equal, round. Sclera anicteric. Conjunctiva are clear. Mucous membranes of the mouth are moist. Neck is supple. There is no elevated jugular venous pressure.no carotid bruit is heard. HEART EXAMINATION: [Heart S1, S2 systolic murmur is heard. No murmur or gallop heard.] CHEST EXAMINATION:[ Lungs reveal diminished air entry to bilateral bases, fine expiratory wheezing noted. No chest wall tenderness is noted on palpation or with deep breathing.] ABDOMEN: [ Soft, nontender. Bowel sounds are heard. No organomegaly noted]. EXTREMITIES:[ 1+ peripheral pulses with evidence of peripheral edema and no calf tenderness noted]. NEUROLOGIC [patient is awake, alert and oriented X3.] . - Labs CBC & Chem 7: 02/24/19 06:33 02/24/19 06:33 Labs: Abnormal Lab Results - Last 24 Hours (Table) 02/22/19 02/23/19 02/23/19 Range/Units 13:22 15:30 15:30 WBC (3.8-10.6) k/uL RBC 2.73 L (4.30-5.90) m/uL Hgb 7.3 L (13.0-17.5) gm/dL Hct 25.5 L (39.0-53.0) % MCHC 28.8 L (31.0-37.0) g/dL RDW 17.3 H (11.5-15.5) % Neutrophils # 7.8 H (1.3-7.7) k/uL Lymphocytes # 0.7 L (1.0-4.8) k/uL BUN (9-20) mg/dL Glucose (74-99) mg/dL POC Glucose (mg/dL) (75-99) mg/dL Iron 41 L (65-175) ug/dL AST (17-59) U/L ALT (21-72) U/L Alkaline Phosphatase (38-126) U/L Total Protein (6.3-8.2) g/dL Albumin (3.5-5.0) g/dL Crossmatch See Detail 02/23/19 02/23/19 02/24/19 Range/Units 17:10 20:01 06:25 WBC (3.8-10.6) k/uL RBC (4.30-5.90) m/uL Hgb (13.0-17.5) gm/dL Hct (39.0-53.0) % MCHC (31.0-37.0) g/dL RDW (11.5-15.5) % Neutrophils # (1.3-7.7) k/uL Lymphocytes # (1.0-4.8) k/uL BUN (9-20) mg/dL Glucose (74-99) mg/dL POC Glucose (mg/dL) 196 H 258 H 203 H (75-99) mg/dL Iron (65-175) ug/dL AST (17-59) U/L ALT (21-72) U/L Alkaline Phosphatase (38-126) U/L Total Protein (6.3-8.2) g/dL Albumin (3.5-5.0) g/dL Crossmatch 02/24/19 02/24/19 02/24/19 Range/Units 06:33 06:33 11:43 WBC 10.9 H (3.8-10.6) k/uL RBC 2.51 L (4.30-5.90) m/uL Hgb 7.0 L (13.0-17.5) gm/dL Hct 23.5 L (39.0-53.0) % MCHC 29.9 L (31.0-37.0) g/dL RDW 17.4 H (11.5-15.5) % Neutrophils # 9.4 H (1.3-7.7) k/uL Lymphocytes # 0.8 L (1.0-4.8) k/uL BUN 22 H (9-20) mg/dL Glucose 176 H (74-99) mg/dL POC Glucose (mg/dL) 299 H (75-99) mg/dL Iron (65-175) ug/dL AST 169 H (17-59) U/L ALT 80 H (21-72) U/L Alkaline Phosphatase 279 H (38-126) U/L Total Protein 5.1 L (6.3-8.2) g/dL Albumin 2.7 L (3.5-5.0) g/dL Crossmatch Microbiology - Last 24 Hours (Table) 02/23/19 16:30 Gram Stain - Preliminary Sputum Sputum Culture - Preliminary 02/22/19 12:06 Urine Culture - Preliminary Urine,Voided Gram Neg Bacilli 02/22/19 12:06 Blood Culture - Preliminary Blood No Growth after 24 hours Assessment and Plan Plan: Assessment and Plan Plan: 1 left lower lobe pneumonia as evident on the most recent CAT scan of the chest. The patient underwent recent bronchoscopy that was complicated by respiratory failure requiring intubation mechanical ventilation for brief period of time and patient was extubated and discharged home. He has been infected with Klebsiella pneumoniae, ESBL producing organism, and a sputum sample for microbiologic analysis. 2 small cell lung cancer with a left hilar mass in addition to mediastinal lymphadenopathy, and possible liver metastases. 3 COPD \with an FEV1 of 1.59 L which is 40% predicted 4 chronic hypoxic respiratory failure secondary to above 5 paroxysmal atrial fibrillation, currently in normal sinus rhythm. 6 coronary artery disease 7 history of CVA/TIA 8 IBS 9 hypertension 10 hyperlipidemia 13 osteoarthritis 14 BPH 15 [id number] smoking history quit in May 2018 16 non-AK troponin elevation likely secondary to hypoxia plan From cardiology's perspective, we'll recommend to continue this patient on his current medications. His echo showed a normal ejection fraction. We will follow him along with you now on an as-needed basis only, please don't hesitate to call with any questions. DNP note has been reviewed, I agree with a documented findings and plan of care. Patient was seen and examined.
--- NOTE | 2019-02-24 14:43 | P.PN ---
Subjective Progress Note Date: 02/24/19 Principal diagnosis: Left lower lobe pneumonia, likely hospital-acquired This is a pleasant 68-year-old male patient with advanced COPD, history of recurrent pneumonias and a recent diagnosis of small cell lung cancer based on a bronchoscopy that was done last week by our service. The patient mcpherson multiple medical problems and comorbidities. Is obese and he has COPD, coronary artery disease, history of CVA, history of paroxysmal atrial fibrillation and the patient is on long-term and to coagulation with Eliquis and the patient also has history of diastolic heart failure. The patient has had previous bronchoscopies and previous infections with Klebsiella pneumoniae/ESBL producing organism based on a previous sputum cultures from 12/21/2018. The most recent bronchoscopy that was done on confirmed diagnoses based on some endobronchial abnormality seen in the left upper lobe. The patient was briefly intubated and placed on a mechanical ventilator following the bronchoscopy and following that he was weaned off the mechanical ventilator and he was discharged home few days ago. Following his discharge, the patient got short of breath again and he was having increased cough congestion and he was admitted for COPD exacerbation and suspected pneumonia. His cough and a thick yellowish sputum. He is currently on IV Zosyn. No fever. No chills. No chest pain. No hemoptysis. No pleurisy. He is aware of his recent diagnosis of small cell lung cancer. Chest x-ray shows left hilar fullness and consolidation of the left upper lobe and superimposed pneumonia is suspected at this point in time. A repeat CAT scan of the chest was done on 02/22/2019 and it showed breathing artifact, no evidence of any pulmonary embolism and that his COPD and pulmonary arterial hypertension and there is a mass encasing the left hilar area putting of the left upper lobe bronchus enlarging currently measuring 2.5 cm and there is also increase in diffuse mediastinal lymphadenopathy. This is consistent with small cell lung cancer. There is also new consolidation is quite extensive and the peripheral left lower lobe and pneumonia suspected this point in time. There is also increasing septal lines in the left upper lobe which could present pulmonary vessel congestion or even lymphangitic spread of the tumor. The left that he had gland measuring 1.3 cm versus 1.5 cm compared to previous evaluations. On 02/24/2019 patient seen in follow-up on the selective care unit. He is sitting up in a chair, in no acute distress, apparently yesterday patient had several episodes of black tarry stools, and this morning's hemoglobin is down to 7.0, he did receive 1 unit of blood yesterday for hemoglobin of 6.5, he will receive 2 more units this morning. GI service consultation is pending, patient's Eliquis and aspirin have been put on hold, hemodynamically patient remains stable, complains of worsening shortness of breath or chest pain, no cough or congestion. Patient remains on Invanz, sputum culture is pending, blood culture showed no growth, urine culture was positive for gram-negative bacilli Objective - Vital Signs Vital signs: Vital Signs Temp 97.8 F 02/24/19 13:52 Pulse 71 02/24/19 13:52 Resp 16 02/24/19 13:52 BP 127/61 02/24/19 13:52 Pulse Ox 95 02/24/19 13:52 Intake & Output 02/23/19 02/24/19 02/24/19 18:59 06:59 18:59 Intake Total 670 10 464 Output Total 250 Balance 670 -240 464 Weight 107.7 kg Intake: IV 10 20 Invasive Line 4 10 20 Oral 360 444 Blood Product 310 0 Rc As-1 Unit 0 [id number] Rc As-1 Unit 310 [id number] Output: Urine 250 Other: Voiding Method Urinal Urinal # Voids 200 1 # Bowel Movements 1 5 - Exam GENERAL EXAM: Alert, pleasant, 68-year-old white male, on 4 L of oxygen with a pulse ox of 98% comfortable in no apparent distress. HEAD: Normocephalic/atraumatic. EYES: Normal reaction of pupils, equal size. Conjunctiva pink, sclera white. NOSE: Clear with pink turbinates. THROAT: No erythema or exudates. NECK: No masses, no JVD, no thyroid enlargement, no adenopathy. CHEST: No chest wall deformity. Symmetrical expansion. LUNGS: Equal air entry with a few scattered rhonchi, wheeze, rhonchi or dullness. CVS: Regular rate and rhythm, normal S1 and S2, no gallops, no murmurs, no rubs ABDOMEN: Soft, nontender. No hepatosplenomegaly, normal bowel sounds, no guarding or rigidity. EXTREMITIES: No clubbing, 1+ edema, no cyanosis, 2+ pulses and upper and lower extremities. MUSCULOSKELETAL: Muscle strength and tone normal. SPINE: No scoliosis or deformity SKIN: No rashes CENTRAL NERVOUS SYSTEM: Alert and oriented -3. No focal deficits, tone is normal in all 4 extremities. PSYCHIATRIC: Alert and oriented -3. Appropriate affect. Intact judgment and insight. - Labs CBC & Chem 7: 02/24/19 06:33 02/24/19 06:33 Labs: Abnormal Lab Results - Last 24 Hours (Table) 02/22/19 02/23/19 02/23/19 Range/Units 13:22 15:30 15:30 WBC (3.8-10.6) k/uL RBC 2.73 L (4.30-5.90) m/uL Hgb 7.3 L (13.0-17.5) gm/dL Hct 25.5 L (39.0-53.0) % MCHC 28.8 L (31.0-37.0) g/dL RDW 17.3 H (11.5-15.5) % Neutrophils # 7.8 H (1.3-7.7) k/uL Lymphocytes # 0.7 L (1.0-4.8) k/uL BUN (9-20) mg/dL Glucose (74-99) mg/dL POC Glucose (mg/dL) (75-99) mg/dL Iron 41 L (65-175) ug/dL AST (17-59) U/L ALT (21-72) U/L Alkaline Phosphatase (38-126) U/L Total Protein (6.3-8.2) g/dL Albumin (3.5-5.0) g/dL Crossmatch See Detail 02/23/19 02/23/19 02/24/19 Range/Units 17:10 20:01 06:25 WBC (3.8-10.6) k/uL RBC (4.30-5.90) m/uL Hgb (13.0-17.5) gm/dL Hct (39.0-53.0) % MCHC (31.0-37.0) g/dL RDW (11.5-15.5) % Neutrophils # (1.3-7.7) k/uL Lymphocytes # (1.0-4.8) k/uL BUN (9-20) mg/dL Glucose (74-99) mg/dL POC Glucose (mg/dL) 196 H 258 H 203 H (75-99) mg/dL Iron (65-175) ug/dL AST (17-59) U/L ALT (21-72) U/L Alkaline Phosphatase (38-126) U/L Total Protein (6.3-8.2) g/dL Albumin (3.5-5.0) g/dL Crossmatch 02/24/19 02/24/19 02/24/19 Range/Units 06:33 06:33 11:43 WBC 10.9 H (3.8-10.6) k/uL RBC 2.51 L (4.30-5.90) m/uL Hgb 7.0 L (13.0-17.5) gm/dL Hct 23.5 L (39.0-53.0) % MCHC 29.9 L (31.0-37.0) g/dL RDW 17.4 H (11.5-15.5) % Neutrophils # 9.4 H (1.3-7.7) k/uL Lymphocytes # 0.8 L (1.0-4.8) k/uL BUN 22 H (9-20) mg/dL Glucose 176 H (74-99) mg/dL POC Glucose (mg/dL) 299 H (75-99) mg/dL Iron (65-175) ug/dL AST 169 H (17-59) U/L ALT 80 H (21-72) U/L Alkaline Phosphatase 279 H (38-126) U/L Total Protein 5.1 L (6.3-8.2) g/dL Albumin 2.7 L (3.5-5.0) g/dL Crossmatch Microbiology - Last 24 Hours (Table) 02/23/19 16:30 Gram Stain - Preliminary Sputum Sputum Culture - Preliminary 02/22/19 12:06 Urine Culture - Preliminary Urine,Voided Gram Neg Bacilli 02/22/19 12:06 Blood Culture - Preliminary Blood No Growth after 24 hours Assessment and Plan Plan: Assessment: 1 left lower lobe pneumonia as evident on the most recent CAT scan of the chest. Consider having hospital-acquired pathogens. The patient underwent recent bronchoscopy that was complicated by respiratory failure requiring intubation mechanical ventilation for brief period of time and patient was extubated and discharged home. He has been infected with Klebsiella pneumoniae, ESBL pr oducing organism, and a sputum sample for microbiologic analysis. 2 small cell lung cancer with a left hilar mass in addition to mediastinal lymphadenopathy. 3 acute GI bleeding, patient had several episodes of black tarry stools, anticoagulants and aspirin are on hold 4 COPD \with an FEV1 of 1.59 L which is 40% predicted 5 chronic hypoxic respiratory failure secondary to above 6 chronic atrial fibrillation rate controlled on Eliquis 7 coronary artery disease 8 history of CVA/TIA 9 coronary artery disease 10 hypertension 11 hyperlipidemia 12 osteoarthritis 13 BPH 14 irritable bowel syndrome 15 [id number] smoking history quit in May 2018 Plan: Anticoagulants have been put on hold, patient is being transfused with 2 units of packed red blood cells, no complaint of worsening shortness of breath, no fever or chills, sputum culture is still pending, continue with Invanz for antibiotic coverage, no fever or chills, continue with nebulized bronchodilators. Continue with oral prednisone. I performed a history & physical examination of the patient and discussed their management with my nurse practitioner, Aicha Mosquera. I reviewed the nurse practitioner's note and agree with the documented findings and plan of care. Lung sounds are positive for diminished breath sounds. The findings and the impression was discussed with the patient. I attest to the documentation by the nurse practitioner. Time with Patient: Less than 30
--- NOTE | 2019-02-24 15:24 | P.PN ---
Subjective Progress Note Date: 02/24/19 Principal diagnosis: SCLC, liver mets, mod/severe pulm disease In follow-up today I met with patient and his family and to discuss the biopsy findings as well as what staging studies were returned. Patient's difficulty in breathing is over all stable, his biggest complaint is pain. The pain is chronic, he previously had a pain pump for it, it is his back and his left hip area. At its worst it can be on 9 out of 10, it does affect his ADLs, sleep, eating. Current pain management is only fair. Does have discomfort in the right upper quadrant but, it is more at this chronic pain in the back and hip that is holding him back. He is very tired, feeling rather frustrated today. Objective - Vital Signs Vital signs: Vital Signs Temp 97.8 F 02/24/19 13:52 Pulse 71 02/24/19 13:52 Resp 16 02/24/19 13:52 BP 127/61 02/24/19 13:52 Pulse Ox 95 02/24/19 13:52 Intake & Output 02/23/19 02/24/19 02/24/19 18:59 06:59 18:59 Intake Total 670 10 464 Output Total 250 Balance 670 -240 464 Weight 107.7 kg Intake: IV 10 20 Invasive Line 4 10 20 Oral 360 444 Blood Product 310 0 Rc As-1 Unit 0 [id number] Rc As-1 Unit 310 [id number] Output: Urine 250 Other: Voiding Method Urinal Urinal # Voids 200 1 # Bowel Movements 1 5 - Constitutional General appearance: Present: cooperative, mild distress, obese - EENT Eyes: Present: anicteric sclerae, EOMI - Respiratory Respiratory: bilateral: diminished, wheezing - Cardiovascular Heart sounds: normal: S1, S2 - Peripheral edema leg Peripheral Edema: bilateral: Trace - Gastrointestinal General gastrointestinal: Present: normal bowel sounds, soft - Neurologic Neurologic: Present: CNII-XII intact - Musculoskeletal Musculoskeletal: Present: generalized weakness, strength equal bilaterally - Psychiatric Psychiatric: Present: A&O x's 3, appropriate affect, intact judgment & insight - Labs CBC & Chem 7: 02/24/19 06:33 02/24/19 06:33 Labs: Abnormal Lab Results - Last 24 Hours (Table) 02/22/19 02/23/19 02/23/19 Range/Units 13:22 15:30 15:30 WBC (3.8-10.6) k/uL RBC 2.73 L (4.30-5.90) m/uL Hgb 7.3 L (13.0-17.5) gm/dL Hct 25.5 L (39.0-53.0) % MCHC 28.8 L (31.0-37.0) g/dL RDW 17.3 H (11.5-15.5) % Neutrophils # 7.8 H (1.3-7.7) k/uL Lymphocytes # 0.7 L (1.0-4.8) k/uL BUN (9-20) mg/dL Glucose (74-99) mg/dL POC Glucose (mg/dL) (75-99) mg/dL Iron 41 L (65-175) ug/dL AST (17-59) U/L ALT (21-72) U/L Alkaline Phosphatase (38-126) U/L Total Protein (6.3-8.2) g/dL Albumin (3.5-5.0) g/dL Crossmatch See Detail 02/23/19 02/23/19 02/24/19 Range/Units 17:10 20:01 06:25 WBC (3.8-10.6) k/uL RBC (4.30-5.90) m/uL Hgb (13.0-17.5) gm/dL Hct (39.0-53.0) % MCHC (31.0-37.0) g/dL RDW (11.5-15.5) % Neutrophils # (1.3-7.7) k/uL Lymphocytes # (1.0-4.8) k/uL BUN (9-20) mg/dL Glucose (74-99) mg/dL POC Glucose (mg/dL) 196 H 258 H 203 H (75-99) mg/dL Iron (65-175) ug/dL AST (17-59) U/L ALT (21-72) U/L Alkaline Phosphatase (38-126) U/L Total Protein (6.3-8.2) g/dL Albumin (3.5-5.0) g/dL Crossmatch 02/24/19 02/24/19 02/24/19 Range/Units 06:33 06:33 11:43 WBC 10.9 H (3.8-10.6) k/uL RBC 2.51 L (4.30-5.90) m/uL Hgb 7.0 L (13.0-17.5) gm/dL Hct 23.5 L (39.0-53.0) % MCHC 29.9 L (31.0-37.0) g/dL RDW 17.4 H (11.5-15.5) % Neutrophils # 9.4 H (1.3-7.7) k/uL Lymphocytes # 0.8 L (1.0-4.8) k/uL BUN 22 H (9-20) mg/dL Glucose 176 H (74-99) mg/dL POC Glucose (mg/dL) 299 H (75-99) mg/dL Iron (65-175) ug/dL AST 169 H (17-59) U/L ALT 80 H (21-72) U/L Alkaline Phosphatase 279 H (38-126) U/L Total Protein 5.1 L (6.3-8.2) g/dL Albumin 2.7 L (3.5-5.0) g/dL Crossmatch Microbiology - Last 24 Hours (Table) 02/22/19 12:06 Blood Culture - Preliminary Blood No Growth after 48 hours 02/23/19 16:30 Gram Stain - Preliminary Sputum Sputum Culture - Preliminary 02/22/19 12:06 Urine Culture - Preliminary Urine,Voided Gram Neg Bacilli - Imaging and Cardiology CT scan - abdomen: report reviewed CT scan - pelvis: report reviewed Nuclear medicine bone scan report reviewed Assessment and Plan (1) Small cell lung cancer Narrative/Plan: I reviewed with the patient and the family and diagnosis of small cell lung cancer from recent biopsy. Staging scans of the abdomen and pelvis did identify liver lesions (mm innumerable nodules, left lobe) as well as some milar adenopathy, no other visceral disease, bone scan was negative for lesions, still pending the MRI of the brain, to be done later today. We reviewed the aggressive nature of small cell lung cancer as well as prognosis, which can be up to a year with optimal response to treatment. We discussed carboplatin and etoposide as the standard of care. Case was discussed at tumor board, case was reviewed with Dr. Longo. Atezolizumab is a PDL 1 monoclonal antibody that is approved in this setting (extensive small cell lung cancer) as first-line treatment with carboplatin and etoposide. I will review this drug in particular with them at tomorrow's visit. I reassured patient that we would help him achieve what ever goals he has for himself. Intent of treatment is to palliate the symptoms and prolong his life. If at any point in time the treatment is worse than the disease I told him he was more than free to stop treatment and we would pursue treatment of symptoms. Patient at this time does think he wants to try treatment. In order to receive PDL 1 therapy patient would need to be in the outpatient setting. Now that we have evidence that does not suggest acute visceral crisis (liver enzymes are down, CT liver is not suggesting diffuse disease), goal is to get pt stable so he can be discharged. We will look for Pulmonary recommendations and support for this patient. Current Visit: Yes Status: Acute Priority: High Code(s): C34.90 - MALIGNANT NEOPLASM OF UNSP PART OF UNSP BRONCHUS OR LUNG SNOMED Code(s): 397168080 (2) Transaminitis Narrative/Plan: Related to malignancy, question any underlying liver disease. Staging workup as showing some liver lesions, rather small, mostly around 5 mm, found mainly in the left lobe. Not suspecting a visceral crisis. Patient's liver functions are improving with hydration. Current Visit: Yes Status: Acute Priority: High Code(s): R74.0 - NONSPEC ELEV OF LEVELS OF TRANSAMNS & LACTIC ACID DEHYDRGNSE SNOMED Code(s): 129202270 (3) Cancer-related pain Narrative/Plan: Patient's right upper quadrant pain is related to malignancy. Patient's most severe pain now is coming from his back as well as his left hip. This is chronic pain. Patient has had for many years. Patient has been on a pain pump in the past for this pain. He the IV morphine is not providing him with adequate relief. Patient has been placed for Pain Management services to take a look at this complex case. This pain does affect patient's ADLs, activity levels, appetite, mood and rest. We will wait for their evaluation and recommendations. Current Visit: Yes Status: Acute Priority: High Code(s): G89.3 - NEOPLASM RELATED PAIN (ACUTE) (CHRONIC) SNOMED Code(s): 70673596927061 (4) Normocytic normochromic anemia Narrative/Plan: Hgb is 7 today after 1 unit of PRBCs for a Hgb of 6.5, not really an appropriate response. Occult was positive. Anticoagulation and antiplatelet therapies have already been discontinued. Daily CBC. Transfuse for hemoglobin less than 7 unless symptomatic. Anemia workup shows a low iron level with low normal saturation and a normal ferritin. B12 normal. Patient could benefit from some iron. No oral iron until patient is been evaluated by gastroenterology to see if there are any plans for any endoscopy. We'll await infusion with any parenteral iron until patient has completed antibiotics. For now continue supportive transfusions. Suspect that the anemia is related to mal ignancy/inflammation and poor bone marrow response. Current Visit: Yes Status: Acute Priority: High Code(s): D64.9 - ANEMIA, UNSPECIFIED SNOMED Code(s): 24257603
[2019-02-24 17:23] LABS: Glucose,Whole Blood 194 mg/dL (75-99)
--- NOTE | 2019-02-24 18:06 | MR ---
EXAMINATION TYPE: MR brain wo/w con DATE OF EXAM: 02/24/2019 COMPARISON: Head CT dated November 2018. HISTORY: SCLC, initial staging TECHNIQUE: Multiplanar, multisequence images of the brain and brainstem is performed without and with IV contras t, utilizing 11.5 mL intravenous Gadavist . FINDINGS: Diffusion weighted images demonstrate no evidence of a recent infarct or other diffusion ab normality. There is no extra-axial fluid collection. Confluent and scattered hyperintensities presen t on inversion recovery and T2-weighted sequences within the periventricular, pericallosal, some and juxtacortical white matter, there are greater than 50 lesions. There are normal vascular flow voids. There is artifact present of the exam. The ventricular system and cisternal spaces are normal in size and appearance. The brain volume is age appropriate. Midline structures demonstrate normal morphology. The craniocervical junction appears within normal limits. Post contrast images demonstrate no abnormal enhancement. The dural venous sinuses appear pa tent. The visualized sinuses are clear and the globes are intact. IMPRESSION: No evident metastatic disease. Nonspecific white matter demyelination may be due to chron ic small vessel ischemia. Probable age-related atrophy. There is artifact on the exam which may limit sensitivity and specificity.
[2019-02-24 19:52] LABS: Glucose,Whole Blood 155 mg/dL (75-99)
[2019-02-24] MEDS: CYCLOBENZAPRINE 10 MG TAB PO SCH (20:33)
[2019-02-24] MEDS: TAMSULOSIN 0.4 MG CAP.ER.24H PO SCH (20:34)
--- NOTE | 2019-02-24 23:23 | P.CONS ---
History of Present Illness - Reason for Consult Consult date: 02/24/19 Anemia, melena Requesting physician: Keshia Mccarthy - Chief Complaint Shortness of breath, Weakness - History of Present Illness 68-year-old male with multiple medical comorbidities including COPD, recurrent pneumonia, small cell lung cancer, coronary artery disease, atrial fibrillation, diastolic CHF and CVA who presented to the hospital due to increasing shortness of breath. Patient has had multiple hospitalizations for community-acquired pneumonias and bronchoscopy on 02/18/2019 resulted in pathology consistent with small cell lung cancer. Computed tomography scan on current admission suggestive of liver lesions suggestive of metastatic disease. Patient is currently being treated for pneumonia and developed dark melanotic stools. He denied any associated pain in his abdomen. He reports bowel movements are loose and black in color. Denies any NSAID use. The patient is on home Prilosec therapy. No bright red blood with bowel movements. He is currently receiving steroid therapy for underlying issues involving his lungs. Does report a prior history of colonoscopy but denies any history of peptic ulcer disease. Laboratory evaluation is significant for hemoglobin of 7 decreased from 7.3 previously, WBC 10.9, platelet count 271, INR 1, total bilirubin 0.4, alkaline phosphatase 279, AST 169. Patient is seen lying in bed with no acute complain ts. He has tolerated liquid diet. No abdominal pain currently. Review of Systems REVIEW OF SYSTEMS: CONSTITUTIONAL: Denies any fevers, chills, weight change but does report fatigue. CARDIOVASCULAR: Denies any chest pain, palpitations high or low blood pressures RESPIRATORY: As of breath with cough. GENITOURINARY: No dysuria or hematuria. MUSCULOSKELETAL: No weakness reported. SKIN: Denies any new rashes or lesions, jaundice or pallor. PSYCHIATRIC: Denies any depression or anxiety. NEUROLOGY: Denies headache, denies any new focal deficits. EARS/NOSE/THROAT: No recent hearing change, congestion, nasal discharge or sore throat. EYES: No pain in eyes, discharge or change in vision. GASTROINTESTINAL: As per HPI. Past Medical History Past Medical History: Coronary Artery Disease (CAD), Cancer, Chest Pain / Angina, COPD, CVA/TIA, GERD/Reflux, Hyperlipidemia, Hypertension, Osteoarthritis (OA), Prostate Disorder Additional Past Medical History / Comment(s): COPD, coronary artery disease, CVA/TIA, acid reflux, hyperlipidemia, hypertension, osteoarthritis, BPH, vertigo, coronary artery disease, hiatal hernia, IBS, small cell lung cancer, diverticulosis with previous history of diverticulitis History of Any Multi-Drug Resistant Organisms: C-DIFF, ESBL Year Discovered:: 12/23/18 MDRO Source:: Sputum MDRO ESBL,c-diff beginning of January 2019,currently symptom free Past Surgical History: Adenoidectomy, Back Surgery, Heart Catheterization, Hernia Repair, Joint Replacement, Orthopedic Surgery, Tonsillectomy Additional Past Surgical History / Comment(s): L knee replacement, back surgery x2-failed fusion and 2 rods in lower back, L/R cataract surgery, bilat. rib removal (cervical), carpal tunnel R wrist, colonoscopy, L elbow surgery, abdominal hernia repair, 3 R inguinal hernia repairs, L inguinal hernia repair, rectal cystectomy.pain pump(ms) implanted removed 11/06/2018 Past Anesthesia/Blood Transfusion Reactions: Previous Problems w/ Anesthesia Additional Past Anesthesia/Blood Transfusion Reaction / Comm: With first surgery became belligerent when waking up. Past Psychological History: No Psychological Hx Reported Additional Psychological History / Comment(s): Pt resides with his spouse. He uses a cane to ambulate. has nebulizer He drives. 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 Is no longer smoking. No animals in the home Smoking Status: Former smoker Past Alcohol Use History: None Reported Additional Past Alcohol Use History / Comment(s): Pt started smoking in 1962 and quit in May of 2018. Past Drug Use History: None Reported - Past Family History Mother Family Medical History: No Reported History Additional Family Medical History / Comment(s): Mother was healthy and lived to be 88 or 89yrs old. Father Family Medical History: Cancer Additional Family Medical History / Comment(s): Father of lung cancer in his early 70's. Medications and Allergies Home Medications Medication Instructions Recorded Confirmed Type Aspirin 81 mg PO DAILY 11/21/18 02/22/19 History Atorvastatin [Lipitor] 80 mg PO HS 11/21/18 02/22/19 History Cyclobenzaprine [Flexeril] 10 mg PO HS 11/30/18 02/22/19 History Apixaban [Eliquis] 5 mg PO BID #20 tab 12/03/18 02/22/19 Rx Digoxin 250 mcg PO DAILY #10 tablet 12/03/18 02/22/19 Rx Diltiazem HCl 90 mg PO Q6H #40 tablet 12/03/18 02/22/19 Rx Tamsulosin HCl [Flomax] 0.4 mg PO HS #20 capsule 12/03/18 02/22/19 Rx Tiotropium 18 Mcg/Puff [Spiriva] 1 puff INHALATION RT-DAILY 12/06/18 02/22/19 History Metoprolol Tartrate [Lopressor] 100 mg PO Q8H 01/11/19 02/22/19 History predniSONE 20 mg PO QAM 01/11/19 02/22/19 History Gabapentin [Neurontin] 400 mg PO QID #120 cap 01/16/19 02/22/19 Rx HYDROcodone/APAP 10-325MG [[place] 1 tab PO Q6H PRN #20 tab 01/16/19 02/22/19 Rx 10-325] Omeprazole [PriLOSEC] 20 mg PO QAM 02/02/19 02/22/19 History L.acidoph,Paracasei, B.lactis 1 cap PO DAILY 02/16/19 02/22/19 History [Probiotic] Multivitamins, Thera [Multivitamin 1 tab PO DAILY 02/16/19 02/22/19 History (formulary)] Allergies Allergy/AdvReac Type Severity Reaction Status Date / Time montelukast sodium AdvReac Itching Verified 02/22/19 11:21 [From [facility]] Physical Exam Vitals: Vital Signs Temp Pulse Pulse Resp BP BP Pulse Ox 02/24/19 11:12 67 18 02/24/19 11:11 67 18 140/63 98 02/24/19 08:14 74 02/24/19 08:05 70 02/24/19 08:00 97.5 F L 79 16 161/70 96 02/24/19 04:00 97.6 F 71 16 143/65 95 02/24/19 00:00 98.3 F 83 18 144/51 95 02/23/19 21:40 73 02/23/19 21:31 72 02/23/19 20:00 98.2 F 70 18 132/63 96 02/23/19 16:40 72 02/23/19 16:25 68 02/23/19 16:00 98.3 F 78 18 155/68 98 07/23/19 13:38 98.2 F 72 18 138/67 97 Intake and Output 02/23/19 02/24/19 02/24/19 22:59 06:59 14:59 Intake Total 0 10 242 Output Total 250 Balance -250 10 242 Intake: IV 10 20 Invasive Line 4 10 20 Oral 0 222 Output: Urine 250 Other: Voiding Method Urinal Urinal # Voids 1 # Bowel Movements 1 5 Weight 107.7 kg On physical examination, patient appears comfortable in no apparent distress. HEAD: Normocephalic, atraumatic. EYES: No scleral icterus. No conjunctival injection. MOUTH: No lesions, tongue midline. NECK: Trachea midline, no gross abnormalities. CHEST: Decreased air entry bilaterally, with coarse respiratory noises in both lower lung mcdaniel worse on the left side. HEART: On S2 appreciated. ABDOMEN: Soft, obese. Bowel sounds are positive. No organomegaly. No guarding or rigidity. EXTREMITIES: +1 pedal edema. SKIN: No rashes, no jaundice. NEUROLOGIC: Alert and oriented x3. No focal deficits. Results CBC & Chem 7: 02/24/19 06:33 02/24/19 06:33 Labs: Abnormal Lab Results - Last 24 Hours (Table) 02/22/19 02/23/19 02/23/19 Range/Units 13:22 15:30 15:30 WBC (3.8-10.6) k/uL RBC 2.73 L (4.30-5.90) m/uL Hgb 7.3 L (13.0-17.5) gm/dL Hct 25.5 L (39.0-53.0) % MCHC 28.8 L (31.0-37.0) g/dL RDW 17.3 H (11.5-15.5) % Neutrophils # 7.8 H (1.3-7.7) k/uL Lymphocytes # 0.7 L (1.0-4.8) k/uL BUN (9-20) mg/dL Glucose (74-99) mg/dL POC Glucose (mg/dL) (75-99) mg/dL Iron 41 L (65-175) ug/dL AST (17-59) U/L ALT (21-72) U/L Alkaline Phosphatase (38-126) U/L Total Protein (6.3-8.2) g/dL Albumin (3.5-5.0) g/dL Crossmatch See Detail 02/23/19 02/23/19 02/24/19 Range/Units 17:10 20:01 06:25 WBC (3.8-10.6) k/uL RBC (4.30-5.90) m/uL Hgb (13.0-17.5) gm/dL Hct (39.0-53.0) % MCHC (31.0-37.0) g/dL RDW (11.5-15.5) % Neutrophils # (1.3-7.7) k/uL Lymphocytes # (1.0-4.8) k/uL BUN (9-20) mg/dL Glucose (74-99) mg/dL POC Glucose (mg/dL) 196 H 258 H 203 H (75-99) mg/dL Iron (65-175) ug/dL AST (17-59) U/L ALT (21-72) U/L Alkaline Phosphatase (38-126) U/L Total Protein (6.3-8.2) g/dL Albumin (3.5-5.0) g/dL Crossmatch 02/24/19 02/24/19 02/24/19 Range/Units 06:33 06:33 11:43 WBC 10.9 H (3.8-10.6) k/uL RBC 2.51 L (4.30-5.90) m/uL Hgb 7.0 L (13.0-17.5) gm/dL Hct 23.5 L (39.0-53.0) % MCHC 29.9 L (31.0-37.0) g/dL RDW 17.4 H (11.5-15.5) % Neutrophils # 9.4 H (1.3-7.7) k/uL Lymphocytes # 0.8 L (1.0-4.8) k/uL BUN 22 H (9-20) mg/dL Glucose 176 H (74-99) mg/dL POC Glucose (mg/dL) 299 H (75-99) mg/dL Iron (65-175) ug/dL AST 169 H (17-59) U/L ALT 80 H (21-72) U/L Alkaline Phosphatase 279 H (38-126) U/L Total Protein 5.1 L (6.3-8.2) g/dL Albumin 2.7 L (3.5-5.0) g/dL Crossmatch Microbiology - Last 24 Hours (Table) 02/23/19 16:30 Gram Stain - Preliminary Sputum Sputum Culture - Preliminary 02/22/19 12:06 Urine Culture - Preliminary Urine,Voided Gram Neg Bacilli 02/22/19 12:06 Blood Culture - Preliminary Blood No Growth after [address] scan - abdomen: report reviewed (CT Scan of the abdomen with innumerable liver lesions noted) Assessment and Plan (1) Melena Narrative/Plan: 68-year-old male with multiple medical comorbidities including recurrent pneumonia, small cell lung cancer, COPD, coronary artery disease and CVA who presented with reports of shortness of breath. Currently he is being treated for pneumonia. Patient does have a normocytic anemia but had a fall in his hemoglobin during his hospitalization with reports of black stool. The patient has been on steroid therapy, aspirin therapy and anticoagulation therapy. Concern is for upper GI bleed with differential including peptic ulcer disease, gastritis/esophagitis, or other GI pathology. Hemoglobin currently 7 from 7.3 previously. Current Visit: Yes Status: Acute Code(s): K92.1 - MELENA SNOMED Code(s): 0822554 (2) Normocytic normochromic anemia Narrative/Plan: Likely multifactorial secondary to anemia of chronic disease with component of possible GI bleeding in the setting of melena. Current Visit: Yes Status: Acute Priority: High Code(s): D64.9 - ANEMIA, UNSPECIFIED SNOMED Code(s): 19253166 (3) Small cell lung cancer Current Visit: Yes Status: Acute Priority: High Code(s): C34.90 - MALIGNANT NEOPLASM OF UNSP PART OF UNSP BRONCHUS OR LUNG SNOMED Code(s): 261096248 (4) Transaminitis Narrative/Plan: Patient with elevation in AST and ALT in the setting of innumerable liver lesions likely metastases from lung cancer. Current Visit: Yes Status: Acute Priority: High Code(s): R74.0 - NONSPEC ELEV OF LEVELS OF TRANSAMNS & LACTIC ACID DEHYDRGNSE SNOMED Code(s): 470918145 Plan: Supportive care Anticoagulation being held Continue to monitor hemoglobin and transfuse as needed Okay for liquid diet Continue IV Protonix 40 mg twice daily Extensive discussion with the patient and his who is bedside about increased risks of endoscopic evaluation in the setting of pneumonia and lung cancer and underlying COPD, and at this time he would like to pursue medical management with PPI therapy with plan for reevaluation of possible endoscopic evaluation and EGD if further fall in hemoglobin or symptoms persist Continue to monitor liver enzymes, suspect secondary to underlying metastatic lung cancer Thank you for allowing us per dissipate in the care of the patient we will continue to follow
[2019-02-25 06:11] LABS: Glucose,Whole Blood 138 mg/dL (75-99)
[2019-02-25] MEDS: DILTIAZEM ORAL 30 MG TAB PO SCH ×5 (06:34→23:03)
[2019-02-25] MEDS: INSULIN ASPART (NovoLOG) 100 UNIT/ML VIAL SQ SCH ×4 (06:35→20:55)
[2019-02-25 06:59] LABS: Anisocytosis Slight; Basophils % (A) 0 %; Eosinophils % (A) 0 %; HCT 28.2 % (39.0-53.0); Hypochromasia Marked; Lymphocytes # (A) 0.9 k/uL (1.0-4.8); Lymphocytes % (A) 7 %; MCH 28.1 pg (25.0-35.0); MCHC 30.8 g/dL (31.0-37.0); MCV 91.3 fL (80.0-100.0); Mean Platelet Volume 7.5; Monocytes # (A) 0.8 k/uL (0-1.0); Monocytes % (A) 6 %; Neutrophils # (A) 11.1 k/uL (1.3-7.7); Neutrophils % (A) 84 %; Platelet Count 245 k/uL (150-450); Poikilocytosis Slight; RBC 3.09 m/uL (4.30-5.90); RDW 17.3 % (11.5-15.5); WBC 13.2 k/uL (3.8-10.6)
[2019-02-25 07:05] LABS: HGB 8.7 gm/dL (13.0-17.5)
[2019-02-25 07:33] LABS: Albumin 2.8 g/dL (3.5-5.0); Calcium 9.7 mg/dL (8.4-10.2); Potassium 4.4 mmol/L (3.5-5.1); Total Bilirubin 0.4 mg/dL (0.2-1.3); Total Protein 5.1 g/dL (6.3-8.2)
[2019-02-25] MEDS: IPRATROPIUM-ALBUTEROL 3 ML NEB INHALATION SCH ×4 (08:43→20:47)
[2019-02-25] MEDS: GABAPENTIN 400 MG CAP PO SCH ×4 (10:46→19:55)
[2019-02-25] MEDS: predniSONE 20 MG TAB PO SCH (10:46)
[2019-02-25] MEDS: PANTOPRAZOLE 40 MG/10 ML VIAL IVP SCH ×2 (10:46→19:55)
[2019-02-25] MEDS: DIGOXIN 250 MCG TAB PO SCH (10:46)
[2019-02-25] MEDS: METOPROLOL TARTRATE 50 MG TAB PO SCH ×3 (10:46→23:03)
[2019-02-25] MEDS: ERTAPENEM 1 GM in SODIUM CHLORIDE 0.9% 50 ML IVPB SCH (11:00)
[2019-02-25] MEDS: MORPHINE SULFATE 4 MG/ML SYRINGE IV PRN ×3 (11:01→23:27)
[2019-02-25 12:02] LABS: Glucose,Whole Blood 151 mg/dL (75-99)
--- NOTE | 2019-02-25 14:56 | P.PN ---
Subjective Progress Note Date: 02/25/19 Principal diagnosis: SCLC, liver mets, mod/severe pulm disease In follow-up today patient is angry about being held nothing by mouth, he is very hungry. Patient states stable breathing, mild to moderate weakness, no fevers, nausea, chest pain, he has a chronic cough, no hemoptysis or purulent sputum production at this time, he did not complain of pain during our discussion. He was able to sit up at the bedside Objective - Vital Signs Vital signs: Vital Signs Temp 97.7 F 02/25/19 10:45 Pulse 80 02/25/19 11:55 Resp 18 02/25/19 10:45 BP 157/71 02/25/19 10:45 Pulse Ox 97 02/25/19 10:45 Intake & Output 02/24/19 02/25/19 02/25/19 18:59 06:59 18:59 Intake Total 1006 640 226 Balance 1006 640 226 Weight 107 kg Intake: IV 30 20 Invasive Line 4 30 20 Oral 666 226 Blood Product 310 620 Rc As-1 Unit 310 [id number] Rc As-1 Unit 0 310 [id number] Other: Voiding Method Urinal Urinal # Voids 2 1 4 # Bowel Movements 2 - Constitutional General appearance: Present: cooperative, no acute distress, obese - EENT Eyes: Present: anicteric sclerae, EOMI ENT: Present: hearing grossly normal - Respiratory Details: Respirations even and unlabored, chronic O2 - Cardiovascular Details: Skin warm and dry, radial pulse palpable 2+, trace extremity edema - Neurologic Neurologic: Present: CNII-XII intact - Musculoskeletal Musculoskeletal: Present: strength equal bilaterally - Psychiatric Psychiatric: Present: A&O x's 3, appropriate affect, intact judgment & insight - Labs CBC & Chem 7: 02/25/19 06:34 02/25/19 06:34 Labs: Abnormal Lab Results - Last 24 Hours (Table) 02/22/19 02/23/19 02/24/19 Range/Units 13:22 15:30 17:21 WBC (3.8-10.6) k/uL RBC (4.30-5.90) m/uL Hgb (13.0-17.5) gm/dL Hct (39.0-53.0) % MCHC (31.0-37.0) g/dL RDW (11.5-15.5) % Neutrophils # (1.3-7.7) k/uL Lymphocytes # (1.0-4.8) k/uL BUN (9-20) mg/dL Glucose (74-99) mg/dL POC Glucose (mg/dL) 194 H (75-99) mg/dL AST (17-59) U/L ALT (21-72) U/L Alkaline Phosphatase (38-126) U/L Total Protein (6.3-8.2) g/dL Albumin (3.5-5.0) g/dL RBC Folate 1,672 H (280 - 791) ng/mL Crossmatch See Detail 02/24/19 02/25/19 02/25/19 Range/Units 19:51 06:10 06:34 WBC 13.2 H (3.8-10.6) k/uL RBC 3.09 L (4.30-5.90) m/uL Hgb 8.7 L D (13.0-17.5) gm/dL Hct 28.2 L (39.0-53.0) % MCHC 30.8 L (31.0-37.0) g/dL RDW 17.3 H (11.5-15.5) % Neutrophils # 11.1 H (1.3-7.7) k/uL Lymphocytes # 0.9 L (1.0-4.8) k/uL BUN (9-20) mg/dL Glucose (74-99) mg/dL POC Glucose (mg/dL) 155 H 138 H (75-99) mg/dL AST (17-59) U/L ALT (21-72) U/L Alkaline Phosphatase (38-126) U/L Total Protein (6.3-8.2) g/dL Albumin (3.5-5.0) g/dL RBC Folate (280 - 791) ng/mL Crossmatch 02/25/19 02/25/19 Range/Units 06:34 12:01 WBC (3.8-10.6) k/uL RBC (4.30-5.90) m/uL Hgb (13.0-17.5) gm/dL Hct (39.0-53.0) % MCHC (31.0-37.0) g/dL RDW (11.5-15.5) % Neutrophils # (1.3-7.7) k/uL Lymphocytes # (1.0-4.8) k/uL BUN 23 H (9-20) mg/dL Glucose 122 H (74-99) mg/dL POC Glucose (mg/dL) 151 H (75-99) mg/dL AST 156 H (17-59) U/L ALT 74 H (21-72) U/L Alkaline Phosphatase 321 H (38-126) U/L Total Protein 5.1 L (6.3-8.2) g/dL Albumin 2.8 L (3.5-5.0) g/dL RBC Folate (280 - 791) ng/mL Crossmatch Microbiology - Last 24 Hours (Table) 02/22/19 12:06 Blood Culture - Preliminary Blood No Growth after 72 hours 02/22/19 12:06 Urine Culture - Final Urine,Voided Klebsiella pneumoniae - Imaging and Cardiology MRI - head: report reviewed Assessment and Plan (1) Small cell lung cancer Narrative/Plan: Staging completed, MRI of the brain is negative. Patient does have liver lesions, hilar adenopathy, no other visceral disease, bone scan was negative. With liver involvement, patient's small cell lung cancer is considered extensive stage. We discussed carboplatin, etoposide and Atezolizumab, PDL 1 monoclonal antibody, approved for first-line treatment of extensive stage small cell lung cancer. Did confirm with patient that he would like to try chemotherapy, he is interested. Orders for treatment will be sent to billing. Plan is to begin treatment outpatient in the next 1-2 weeks once all insurance authorizations are obtained. I did discuss with the patient that we will work closely with Dr. Bravo, especially considering patient's advanced lung disease. We will look for Pulmon jen recommendations and support for this patient. He verbalized understanding. I again, reassured patient we would help him achieve what ever goals he has for himself. Intent of treatment is to palliate the symptoms and prolong his life. If at any point in time the treatment is worse than the disease he can stop treatment and we would pursue treatment of symptoms. . Current Visit: Yes Status: Acute Priority: High Code(s): C34.90 - MALIGNANT NEOPLASM OF UNSP PART OF UNSP BRONCHUS OR LUNG SNOMED Code(s): 130102094 (2) Transaminitis Current Visit: Yes Status: Acute Priority: High Code(s): R74.0 - NONSPEC ELEV OF LEVELS OF TRANSAMNS & LACTIC ACID DEHYDRGNSE SNOMED Code(s): 241940600 (3) Cancer-related pain Current Visit: Yes Status: Acute Priority: High Code(s): G89.3 - NEOPLASM RELATED PAIN (ACUTE) (CHRONIC) SNOMED Code(s): 05133136687953 (4) Normocytic normochromic anemia Current Visit: Yes Status: Acute Priority: High Code(s): D64.9 - ANEMIA, UNSPECIFIED SNOMED Code(s): 58238093
--- NOTE | 2019-02-25 14:59 | P.PN ---
Subjective Progress Note Date: 02/25/19 Principal diagnosis: Left lower lobe pneumonia, likely hospital-acquired This is a pleasant 68-year-old male patient with advanced COPD, history of recurrent pneumonias and a recent diagnosis of small cell lung cancer based on a bronchoscopy that was done last week by our service. The patient mcpherson multiple medical problems and comorbidities. Is obese and he has COPD, coronary artery disease, history of CVA, history of paroxysmal atrial fibrillation and the patient is on long-term and to coagulation with Eliquis and the patient also has history of diastolic heart failure. The patient has had previous bronchoscopies and previous infections with Klebsiella pneumoniae/ESBL producing organism based on a previous sputum cultures from 12/21/2018. The most recent bronchoscopy that was done on confirmed diagnoses based on some endobronchial abnormality seen in the left upper lobe. The patient was briefly intubated and placed on a mechanical ventilator following the bronchoscopy and following that he was weaned off the mechanical ventilator and he was discharged home few days ago. Following his discharge, the patient got short of breath again and he was having increased cough congestion and he was admitted for COPD exacerbation and suspected pneumonia. His cough and a thick yellowish sputum. He is currently on IV Zosyn. No fever. No chills. No chest pain. No hemoptysis. No pleurisy. He is aware of his recent diagnosis of small cell lung cancer. Chest x-ray shows left hilar fullness and consolidation of the left upper lobe and superimposed pneumonia is suspected at this point in time. A repeat CAT scan of the chest was done on 02/22/2019 and it showed breathing artifact, no evidence of any pulmonary embolism and that his COPD and pulmonary arterial hypertension and there is a mass encasing the left hilar area putting of the left upper lobe bronchus enlarging currently measuring 2.5 cm and there is also increase in diffuse mediastinal lymphadenopathy. This is consistent with small cell lung cancer. There is also new consolidation is quite extensive and the peripheral left lower lobe and pneumonia suspected this point in time. There is also increasing septal lines in the left upper lobe which could present pulmonary vessel congestion or even lymphangitic spread of the tumor. The left that he had gland measuring 1.3 cm versus 1.5 cm compared to previous evaluations. On 02/24/2019 patient seen in follow-up on the selective care unit. He is sitting up in a chair, in no acute distress, apparently yesterday patient had several episodes of black tarry stools, and this morning's hemoglobin is down to 7.0, he did receive 1 unit of blood yesterday for hemoglobin of 6.5, he will receive 2 more units this morning. GI service consultation is pending, patient's Eliquis and aspirin have been put on hold, hemodynamically patient remains stable, complains of worsening shortness of breath or chest pain, no cough or congestion. Patient remains on Invanz, sputum culture is pending, blood culture showed no growth, urine culture was positive for gram-negative bacilli On 02/25/2017 patient seen in follow-up on selective care unit. His breathing is stable, and patient is on 2 L of oxygen with a pulse ox of 97%, he is afebrile, hemodynamically patient is stable. Currently patient had episode last night where he was confused, and wandering the halls and was upset about liquid diet. Today's hemoglobin is 8.7, patient did receive 3 units of packed red blood cells over the course of last 2 days. GI service is following, and jacquie ent is on clear liquid diet. No significant cough or congestion, rest of blood work has been reviewed showing the blood cell count 13.2, platelet count is 245, a large joints were within normal limits, BUN is 23 creatinine is 1.03. Urine culture was positive for Klebsiella pneumonia, ESBL, and gram-negative bacilli in his sputum, no fever or chills, patient remains on Invanz. Blood cultures are negative, aspirin and Eliquis are on hold. MRI of the brain was completed showing no evident metastatic disease, nonspecific white matter demyelination due to chronic small vessel ischemia and probably age-related atrophy. Objective - Vital Signs Vital signs: Vital Signs Temp 97.7 F 02/25/19 10:45 Pulse 80 02/25/19 11:55 Resp 18 02/25/19 10:45 BP 157/71 02/25/19 10:45 Pulse Ox 97 02/25/19 10:45 Intake & Output 02/24/19 02/25/19 02/25/19 18:59 06:59 18:59 Intake Total 1006 640 226 Balance 1006 640 226 Weight 107 kg Intake: IV 30 20 Invasive Line 4 30 20 Oral 666 226 Blood Product 310 620 Rc As-1 Unit 310 [id number] Rc As-1 Unit 0 310 [id number] Other: Voiding Method Urinal Urinal # Voids 2 1 4 # Bowel Movements 2 - Exam GENERAL EXAM: Alert, pleasant, 68-year-old white male, on 2 L of oxygen with a pulse ox of 97% comfortable in no apparent distress. HEAD: Normocephalic/atraumatic. EYES: Normal reaction of pupils, equal size. Conjunctiva pink, sclera white. NOSE: Clear with pink turbinates. THROAT: No erythema or exudates. NECK: No masses, no JVD, no thyroid enlargement, no adenopathy. CHEST: No chest wall deformity. Symmetrical expansion. LUNGS: Equal air entry with a few scattered rhonchi, but no wheeze, rhonchi or dullness. CVS: Regular rate and rhythm, normal S1 and S2, no gallops, no murmurs, no rubs ABDOMEN: Soft, nontender. No hepatosplenomegaly, normal bowel sounds, no guarding or rigidity. EXTREMITIES: No clubbing, 1+ edema, no cyanosis, 2+ pulses and upper and lower extremities. MUSCULOSKELETAL: Muscle strength and tone normal. SPINE: No scoliosis or deformity SKIN: No rashes CENTRAL NERVOUS SYSTEM: Alert and oriented -3. No focal deficits, tone is normal in all 4 extremities. PSYCHIATRIC: Alert and oriented -3. Appropriate affect. Intact judgment and insight. - Labs CBC & Chem 7: 02/25/19 06:34 02/25/19 06:34 Labs: Abnormal Lab Results - Last 24 Hours (Table) 02/22/19 02/23/19 02/24/19 Range/Units 13:22 15:30 17:21 WBC (3.8-10.6) k/uL RBC (4.30-5.90) m/uL Hgb (13.0-17.5) gm/dL Hct (39.0-53.0) % MCHC (31.0-37.0) g/dL RDW (11.5-15.5) % Neutrophils # (1.3-7.7) k/uL Lymphocytes # (1.0-4.8) k/uL BUN (9-20) mg/dL Glucose (74-99) mg/dL POC Glucose (mg/dL) 194 H (75-99) mg/dL AST (17-59) U/L ALT (21-72) U/L Alkaline Phosphatase (38-126) U/L Total Protein (6.3-8.2) g/dL Albumin (3.5-5.0) g/dL RBC Folate 1,672 H (280 - 791) ng/mL Crossmatch See Detail 02/24/19 02/25/19 02/25/19 Range/Units 19:51 06:10 06:34 WBC 13.2 H (3.8-10.6) k/uL RBC 3.09 L (4.30-5.90) m/uL Hgb 8.7 L D (13.0-17.5) gm/dL Hct 28.2 L (39.0-53.0) % MCHC 30.8 L (31.0-37.0) g/dL RDW 17.3 H (11.5-15.5) % Neutrophils # 11.1 H (1.3-7.7) k/uL Lymphocytes # 0.9 L (1.0-4.8) k/uL BUN (9-20) mg/dL Glucose (74-99) mg/dL POC Glucose (mg/dL) 155 H 138 H (75-99) mg/dL AST (17-59) U/L ALT (21-72) U/L Alkaline Phosphatase (38-126) U/L Total Protein (6.3-8.2) g/dL Albumin (3.5-5.0) g/dL RBC Folate (280 - 791) ng/mL Crossmatch 02/25/19 02/25/19 Range/Units 06:34 12:01 WBC (3.8-10.6) k/uL RBC (4.30-5.90) m/uL Hgb (13.0-17.5) gm/dL Hct (39.0-53.0) % MCHC (31.0-37.0) g/dL RDW (11.5-15.5) % Neutrophils # (1.3-7.7) k/uL Lymphocytes # (1.0-4.8) k/uL BUN 23 H (9-20) mg/dL Glucose 122 H (74-99) mg/dL POC Glucose (mg/dL) 151 H (75-99) mg/dL AST 156 H (17-59) U/L ALT 74 H (21-72) U/L Alkaline Phosphatase 321 H (38-126) U/L Total Protein 5.1 L (6.3-8.2) g/dL Albumin 2.8 L (3.5-5.0) g/dL RBC Folate (280 - 791) ng/mL Crossmatch Microbiology - Last 24 Hours (Table) 02/22/19 12:06 Blood Culture - Preliminary Blood No Growth after 72 hours 02/22/19 12:06 Urine Culture - Final Urine,Voided Klebsiella pneumoniae Assessment and Plan Plan: Assessment: 1 left lower lobe pneumonia as evident on the most recent CAT scan of the chest. Consider having hospital-acquired pathogens. The patient underwent recent bronchoscopy that was complicated by respiratory failure requiring intubation mechanical ventilation for brief period of time and patient was extubated and discharged home. He has been infected with Klebsiella pneumoniae, ESBL producing organism, and a sputum sample for microbiologic analysis. 2 small cell lung cancer with a left hilar mass in addition to mediastinal lymphadenopathy. 3 acute GI bleeding, patient had several episodes of black tarry stools, anticoagulants and aspirin are on hold 4 COPD \with an FEV1 of 1.59 L which is 40% predicted 5 chronic hypoxic respiratory failure secondary to above 6 chronic atrial fibrillation rate controlled on Eliquis 7 coronary artery disease 8 history of CVA/TIA 9 coronary artery disease 10 hypertension 11 hyperlipidemia 12 osteoarthritis 13 BPH 14 irritable bowel syndrome 15 [id number] smoking history quit in May 2018 Plan: We'll continue with the oral prednisone, continue with Invanz for antibiotic coverage, breathing is stable, FiO2 down to 2 L, encourage deep breathing and coughing, anticoagulants remain on hold, continue breathing treatments, patient is on clear liquid diet, and PPI therapy. I performed a history & physical examination of the patient and discussed their management with my nurse practitioner, Aicha Mosquera. I reviewed the nurse practitioner's note and agree with the documented findings and plan of care. Lung sounds are positive for diminished breath sounds. The findings and the impression was discussed with the patient. I attest to the documentation by the nurse practitioner. Time with Patient: Less than 30
--- NOTE | 2019-02-25 15:10 | P.PN ---
Subjective Progress Note Date: 02/25/19 The patient seen and examined at bedside, patient pretty agitated and upset today about still being nothing by mouth. Patient had initially been refusing medications and lab drawsand had voiced wanting to leave AMA but we discussed discussed the plan of care regarding his small cell lung cancer with metastasis and the patient is still amenable to having chemotherapy. No acute events overnight. Hemoglobin up to 8.7 from 6.5 after 3 units packed RBC transfusion, patient afebrile white count 13.2, sputum culture growing gram-negative bacilli, patient continued on Invanz Objective - Vital Signs Vital signs: Vital Signs Temp 97.7 F 02/25/19 10:45 Pulse 80 02/25/19 11:55 Resp 18 02/25/19 10:45 BP 157/71 02/25/19 10:45 Pulse Ox 97 02/25/19 10:45 Intake & Output 02/24/19 02/25/19 02/25/19 18:59 06:59 18:59 Intake Total 1006 640 226 Balance 1006 640 226 Weight 107 kg Intake: IV 30 20 Invasive Line 4 30 20 Oral 666 226 Blood Product 310 620 Rc As-1 Unit 310 [id number] Rc As-1 Unit 0 310 [id number] Other: Voiding Method Urinal Urinal # Voids 2 1 4 # Bowel Movements 2 - Exam Constitutional: No acute distress, conversant, pleasant Eyes: Anicteric sclerae, moist conjunctiva, no lid-lag, PERRLA ENMT: NC/AT,Oropharynx clear, no erythema, exudates Neck:Supple, FROM, no masses, or JVD, No carotid bruits; No thyromegaly Lungs: Few scattered rhonchi Normal respiratory effort, no accessory muscle use on 2 L is a cannula with good oxygen saturations, unlabored Cardiovascular: Heart regular in rate and rhythm, No murmurs, gallops, or rubs no peripheral edema Abdominal: Soft Nontender, nom distended, no guarding, no rebound or rigidity, Normoactive bowel sounds No hepatomegaly, No splenomegaly, No palpable mass No abdominal wall hernia noted Skin: Normal temperature, tone, texture, turgor, No induration No subcutaneous nodules, No rash, lesions, No ulcers Extremities:No digital cyanosis No clubbing, Pedal pulses intact and symmetrical Radial pulses intact and symmetrical Normal gait and station, No calf tenderness Psychiatric: Alert and oriented to person, place and time, Appropriate affect Intact judgement Neuro: Muscles Strength 5/5 in all 4 extremities, Sensation to light touch grossly present throughout, Cranial nerves II-XII grossly intact. No focal sensory deficits - Labs CBC & Chem 7: 02/25/19 06:34 02/25/19 06:34 Labs: Abnormal Lab Results - Last 24 Hours (Table) 02/22/19 02/23/19 02/24/19 Range/Units 13:22 15:30 17:21 WBC (3.8-10.6) k/uL RBC (4.30-5.90) m/uL Hgb (13.0-17.5) gm/dL Hct (39.0-53.0) % MCHC (31.0-37.0) g/dL RDW (11.5-15.5) % Neutrophils # (1.3-7.7) k/uL Lymphocytes # (1.0-4.8) k/uL BUN (9-20) mg/dL Glucose (74-99) mg/dL POC Glucose (mg/dL) 194 H (75-99) mg/dL AST (17-59) U/L ALT (21-72) U/L Alkaline Phosphatase (38-126) U/L Total Protein (6.3-8.2) g/dL Albumin (3.5-5.0) g/dL RBC Folate 1,672 H (280 - 791) ng/mL Crossmatch See Detail 02/24/19 02/25/19 02/25/19 Range/Units 19:51 06:10 06:34 WBC 13.2 H (3.8-10.6) k/uL RBC 3.09 L (4.30-5.90) m/uL Hgb 8.7 L D (13.0-17.5) gm/dL Hct 28.2 L (39.0-53.0) % MCHC 30.8 L (31.0-37.0) g/dL RDW 17.3 H (11.5-15.5) % Neutrophils # 11.1 H (1.3-7.7) k/uL Lymphocytes # 0.9 L (1.0-4.8) k/uL BUN (9-20) mg/dL Glucose (74-99) mg/dL POC Glucose (mg/dL) 155 H 138 H (75-99) mg/dL AST (17-59) U/L ALT (21-72) U/L Alkaline Phosphatase (38-126) U/L Total Protein (6.3-8.2) g/dL Albumin (3.5-5.0) g/dL RBC Folate (280 - 791) ng/mL Crossmatch 02/25/19 02/25/19 Range/Units 06:34 12:01 WBC (3.8-10.6) k/uL RBC (4.30-5.90) m/uL Hgb (13.0-17.5) gm/dL Hct (39.0-53.0) % MCHC (31.0-37.0) g/dL RDW (11.5-15.5) % Neutrophils # (1.3-7.7) k/uL Lymphocytes # (1.0-4.8) k/uL BUN 23 H (9-20) mg/dL Glucose 122 H (74-99) mg/dL POC Glucose (mg/dL) 151 H (75-99) mg/dL AST 156 H (17-59) U/L ALT 74 H (21-72) U/L Alkaline Phosphatase 321 H (38-126) U/L Total Protein 5.1 L (6.3-8.2) g/dL Albumin 2.8 L (3.5-5.0) g/dL RBC Folate (280 - 791) ng/mL Crossmatch Microbiology - Last 24 Hours (Table) 02/23/19 16:30 Gram Stain - Preliminary Sputum Sputum Culture - Preliminary Gram Neg Bacilli 02/22/19 12:06 Blood Culture - Preliminary Blood No Growth after 72 hours 02/22/19 12:06 Urine Culture - Final Urine,Voided Klebsiella pneumoniae Assessment and Plan (1) HCAP (healthcare-associated pneumonia) Narrative/Plan: * Patient afebrile with leukocytosis 13.2 up from 10.9 * Sputum culture growing gram-negative bacilli does have a history of Klebsiella pneumonia , ESBL * Continue current regimen with Invanz per pulmonary recommendations Current Visit: Yes Status: Acute Code(s): J18.9 - PNEUMONIA, UNSPECIFIED ORGANISM SNOMED Code(s): 222382712 (2) Small cell lung cancer Narrative/Plan: * Appreciate recommendations by hematology oncology * Patient planning to proceed with chemotherapy * Has metastatic disease with liver lesions hilar adenopathy, bone scan was negative * Staging workup negative for brain metastasis MRI showing no metastatic disease only nonspecific white matter demyelination due to chronic small vessel ischemia and probable age-related atrophy Current Visit: Yes Status: Acute Priority: High Code(s): C34.90 - MALIGNANT NEOPLASM OF UNSP PART OF UNSP BRONCHUS OR LUNG SNOMED Code(s): 314090206 (3) Transaminitis Narrative/Plan: * Likely secondary to metastatic disease from small cell lung cancer primary Current Visit: Yes Status: Acute Priority: High Code(s): R74.0 - NONSPEC ELEV OF LEVELS OF TRANSAMNS & LACTIC ACID DEHYDRGNSE SNOMED Code(s): 538383887 (4) Essential hypertension Narrative/Plan: * Blood pressure stable controlled on home regimen Current Visit: No Status: Chronic Code(s): I10 - ESSENTIAL (PRIMARY) HYPERTENSION SNOMED Code(s): 41472789 (5) Normocytic normochromic anemia Narrative/Plan: * Multifactorial secondary to anemia of chronic disease in the setting of a possible GI bleed * Hemoglobin 8.7 after 3 unit packed RBC transfusion up from 6.5 the recheck CBC in the morning * The patient's dark stools have diminished continue watchful waiting, no endoscopic workup planned at this time hence we'll advance diet Current Visit: Yes Status: Acute Priority: High Code(s): D64.9 - ANEMIA, UNSPECIFIED SNOMED Code(s): 62344967 Plan: Disposition * Appreciate consultants recommendations * Follow up CBC/ * The patient to have pain management consult
--- NOTE | 2019-02-25 15:53 | P.PAINCN ---
History of Present Illness - Reason for Consult Consult date: 02/25/19 - History of Present Illness This is a 68-year-old male patient who was referred for evaluation of long- standing low back pain and left lateral thigh pain. The patient has a 20 year history of low back pain and was following with [facility] for several years. He is undergone several epidural steroid injections and even had an intrathecal pump placed last year, that was removed in November 2018 due to "his body rejecting the pump". He reports no significant benefit from the pain pump. He also has a history of 2 lumbar spine surgeries (L1 to L5) done several years ago with no pain relief. He has also undergone left hip injections with no significant pain relief. He no longer follows with [facility]. His pain medications include Tylenol, [place] 10 mg every 6 hours, Flexeril 10 mg daily at bedtime and Neurontin 400 mg 4 times a day. While he is inpatient, he is also written for morphine 4 mg every 4 hours when necessary. He states that at home he takes 2 tablets of [place] at a time with minimal relief. He also states that the morphine "helps a little ". Of note, he is recently been diagnosed with lung cancer and is looking to start chemotherapy. Patient also denies new-onset weakness, bowel/bladder incontinence, or any other signs or symptoms of cauda equina syndrome. There are no signs of acute i ntoxication, and no indications of medication diversion or overuse. In addition to above, 13-point review of systems is also negative for chest pain, changes in vision, changes in hearing, new onset weakness, abdominal pain, diarrhea, extreme fatigue, malaise, fever, skin changes, homicidal or suicidal ideation, or bowel or bladder incontinence. He does endorse shortness of breath and is wearing a nasal cannula today. Physical exam: Vital Signs: Reviewed in EMR GENERAL: Ill appearing, wearing oxygen cannula, walker by side PSYCH: Mood and affect is appropriate. Awake, alert, and oriented SKIN: Skin color, texture, turgor normal, no rashes or lesions HEENT: Normocephalic, atraumatic. EOM intact CV: Bilateral pitting pedal edema RESP: Respirations are unlabored, O2 via nasal cannula GI: Abdomen non-distended MUSCULOSKELETAL: Bilateral upper and lower extremity strength is normal and sy mmetric. No atrophy or tone abnormalities are noted. Lumbar spine: Straight leg raising in the sitting position is negative for radicular pain. Tenderness to palpation over the lumbar spine and paraspinous muscles. Positive for pain with facet loading and back extension/rotation. Scars from previous lumbar surgery visible and well-healed. Normal range of motion without pain reproduction Buttocks: No pain to palpation over the PSIS, Jae test is negative. Tenderness to palpation over left greater trochanter. Extremities: Peripheral joint ROM is full and pain free without obvious instability or laxity in all four extremities. No edema or skin discolorations noted. NEUR: Bilateral lower extremity coordination and muscle stretch reflexes are physiologic and symmetric. Negative clonus. No loss of sensation is noted. Cranial nerves are grossly intact. Imaging: None in our system Assessment: 1. Failed back surgery syndrome 2. Lumbar spondylosis without radiculopathy or myelopathy 3. Left hip pain, likely due to osteoarthritis or greater trochanter bursitis Plan: 1. Indications: Would recommend addition of Cymbalta 30 mg daily to aid with pain, mood, sleep 2. Procedures: None at this time. Patient was advised to obtain a referral from his primary care doctor to our pain clinic and bring his lumbar spine MRI reports for us to evaluate for possible procedures 3. Consults: Would recommend palliative care consult for additional input regarding medication management Follow-up: In clinic. Okay to discharge from pain standpoint. Past Medical History Past Medical History: Coronary Artery Disease (CAD), Cancer, Chest Pain / Angina, COPD, CVA/TIA, GERD/Reflux, Hyperlipidemia, Hypertension, Osteoarthritis (OA), Prostate Disorder Additional Past Medical History / Comment(s): COPD, coronary artery disease, CVA/TIA, acid reflux, hyperlipidemia, hypertension, osteoarthritis, BPH, vertigo , coronary artery disease, hiatal hernia, IBS, small cell lung cancer, diverticulosis with previous history of diverticulitis History of Any Multi-Drug Resistant Organisms: C-DIFF, ESBL Year Discovered:: 12/23/18 MDRO Source:: Sputum MDRO ESBL,c-diff beginning of January 2019,currently symptom free Past Surgical History: Adenoidectomy, Back Surgery, Heart Catheterization, Hernia Repair, Joint Replacement, Orthopedic Surgery, Tonsillectomy Additional Past Surgical History / Comment(s): L knee replacement, back surgery x2-failed fusion and 2 rods in lower back, L/R cataract surgery, bilat. rib removal (cervical), carpal tunnel R wrist, colonoscopy, L elbow surgery, abdomin al hernia repair, 3 R inguinal hernia repairs, L inguinal hernia repair, rectal cystectomy.pain pump(ms) implanted removed 11/06/2018 Past Anesthesia/Blood Transfusion Reactions: Previous Problems w/ Anesthesia Additional Past Anesthesia/Blood Transfusion Reaction / Comm: With first surgery became belligerent when waking up. Past Psychological History: No Psychological Hx Reported Additional Psychological History / Comment(s): Pt resides with his spouse. He uses a cane to ambulate. has nebulizer He drives. 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 Is no longer smoking. No animals in the home Smoking Status: Former smoker Past Alcohol Use History: None Reported Additional Past Alcohol Use History / Comment(s): Pt started smoking in 1962 and quit in May of 2018. Past Drug Use History: None Reported - Past Family History Mother Family Medical History: No Reported History Additional Family Medical History / Comment(s): Mother was healthy and lived to be 88 or 89yrs old. Father Family Medical History: Cancer Additional Family Medical History / Comment(s): Father of lung cancer in his early 70's. Medications and Allergies Home Medications Medication Instructions Recorded Confirmed Type Aspirin 81 mg PO DAILY 11/21/18 02/22/19 History Atorvastatin [Lipitor] 80 mg PO HS 11/21/18 02/22/19 History Cyclobenzaprine [Flexeril] 10 mg PO HS 11/30/18 02/22/19 History Apixaban [Eliquis] 5 mg PO BID #20 tab 12/03/18 02/22/19 Rx Digoxin 250 mcg PO DAILY #10 tablet 12/03/18 02/22/19 Rx Diltiazem HCl 90 mg PO Q6H #40 tablet 12/03/18 02/22/19 Rx Tamsulosin HCl [Flomax] 0.4 mg PO HS #20 capsule 12/03/18 02/22/19 Rx Tiotropium 18 Mcg/Puff [Spiriva] 1 puff INHALATION RT-DAILY 12/06/18 02/22/19 History Metoprolol Tartrate [Lopressor] 100 mg PO Q8H 01/11/19 02/22/19 History predniSONE 20 mg PO QAM 01/11/19 02/22/19 History Gabapentin [Neurontin] 400 mg PO QID #120 cap 01/16/19 02/22/19 Rx HYDROcodone/APAP 10-325MG [[place] 1 tab PO Q6H PRN #20 tab 01/16/19 02/22/19 Rx 10-325] Omeprazole [PriLOSEC] 20 mg PO QAM 02/02/19 02/22/19 History L.acidoph,Paracasei, B.lactis 1 cap PO DAILY 02/16/19 02/22/19 History [Probiotic] Multivitamins, Thera [Multivitamin 1 tab PO DAILY 02/16/19 02/22/19 History (formulary)] Allergies Allergy/AdvReac Type Severity Reaction Status Date / Time montelukast sodium AdvReac Itching Verified 02/22/19 11:21 [From [facility]] Physical Exam Vitals: Vital Signs Temp Pulse Pulse Resp BP BP Pulse Ox 02/25/19 11:55 80 02/25/19 11:42 80 02/25/19 10:45 97.7 F 77 18 157/71 97 02/25/19 08:15 77 18 02/25/19 03:52 68 16 02/25/19 03:51 98.1 F 68 16 129/73 95 02/24/19 23:06 74 18 02/24/19 23:04 97.7 F 74 18 149/88 92 L 02/24/19 21:23 97.8 F 69 18 159/68 94 L 02/24/19 20:00 98.6 F 70 18 161/72 94 L 02/24/19 19:32 78 02/24/19 19:22 75 02/24/19 18:37 98.3 F 65 16 131/60 96 02/24/19 18:07 97.7 F 68 16 139/63 95 02/24/19 17:57 98.2 F 66 18 147/64 96 02/24/19 15:43 72 Intake and Output 02/25/19 02/25/19 02/25/19 06:59 14:59 22:59 Intake Total 10 226 Balance 10 226 Intake: IV 10 Invasive Line 4 10 Oral 226 Other: Voiding Method Urinal Urinal # Voids 1 4 Weight 107 kg Results CBC & Chem 7: 02/25/19 06:34 02/25/19 06:34 Labs: Abnormal Lab Results - Last 24 Hours (Table) 02/22/19 02/23/19 02/24/19 Range/Units 13:22 15:30 17:21 WBC (3.8-10.6) k/uL RBC (4.30-5.90) m/uL Hgb (13.0-17.5) gm/dL Hct (39.0-53.0) % MCHC (31.0-37.0) g/dL RDW (11.5-15.5) % Neutrophils # (1.3-7.7) k/uL Lymphocytes # (1.0-4.8) k/uL BUN (9-20) mg/dL Glucose (74-99) mg/dL POC Glucose (mg/dL) 194 H (75-99) mg/dL AST (17-59) U/L ALT (21-72) U/L Alkaline Phosphatase (38-126) U/L Total Protein (6.3-8.2) g/dL Albumin (3.5-5.0) g/dL RBC Folate 1,672 H (280 - 791) ng/mL Crossmatch See Detail 02/24/19 02/25/19 02/25/19 Range/Units 19:51 06:10 06:34 WBC 13.2 H (3.8-10.6) k/uL RBC 3.09 L (4.30-5.90) m/uL Hgb 8.7 L D (13.0-17.5) gm/dL Hct 28.2 L (39.0-53.0) % MCHC 30.8 L (31.0-37.0) g/dL RDW 17.3 H (11.5-15.5) % Neutrophils # 11.1 H (1.3-7.7) k/uL Lymphocytes # 0.9 L (1.0-4.8) k/uL BUN (9-20) mg/dL Glucose (74-99) mg/dL POC Glucose (mg/dL) 155 H 138 H (75-99) mg/dL AST (17-59) U/L ALT (21-72) U/L Alkaline Phosphatase (38-126) U/L Total Protein (6.3-8.2) g/dL Albumin (3.5-5.0) g/dL RBC Folate (280 - 791) ng/mL Crossmatch 02/25/19 02/25/19 Range/Units 06:34 12:01 WBC (3.8-10.6) k/uL RBC (4.30-5.90) m/uL Hgb (13.0-17.5) gm/dL Hct (39.0-53.0) % MCHC (31.0-37.0) g/dL RDW (11.5-15.5) % Neutrophils # (1.3-7.7) k/uL Lymphocytes # (1.0-4.8) k/uL BUN 23 H (9-20) mg/dL Glucose 122 H (74-99) mg/dL POC Glucose (mg/dL) 151 H (75-99) mg/dL AST 156 H (17-59) U/L ALT 74 H (21-72) U/L Alkaline Phosphatase 321 H (38-126) U/L Total Protein 5.1 L (6.3-8.2) g/dL Albumin 2.8 L (3.5-5.0) g/dL RBC Folate (280 - 791) ng/mL Crossmatch Microbiology - Last 24 Hours (Table) 02/23/19 16:30 Gram Stain - Preliminary Sputum Sputum Culture - Preliminary Gram Neg Bacilli 02/22/19 12:06 Blood Culture - Preliminary Blood No Growth after 72 hours 02/22/19 12:06 Urine Culture - Final Urine,Voided Klebsiella pneumoniae PQRS Measure Charge Sheet PQRS Narrative: Smoking Status Former smoker Do You Want the Pneumonia No Vaccine AT THIS TIME? Blood Pressure [Left Arm] 157/71 Blood Pressure 159/68 Pain Intensity [Back] 5 Pain Intensity 0 Pain Scale Used Numeric (1 - 10) Scale Used Numeric (1 - 10) Home Medications: Ambulatory Orders Aspirin 81 mg PO DAILY 11/21/18 Atorvastatin [Lipitor] 80 mg PO HS 11/21/18 Cyclobenzaprine [Flexeril] 10 mg PO HS 11/30/18 Apixaban [Eliquis] 5 mg PO BID #20 tab 12/03/18 Digoxin 250 mcg PO DAILY #10 tablet 12/03/18 Diltiazem HCl 90 mg PO Q6H #40 tablet 12/03/18 Tamsulosin HCl [Flomax] 0.4 mg PO HS #20 capsule 12/03/18 Tiotropium 18 Mcg/Puff [Spiriva] 1 puff INHALATION RT-DAILY 12/06/18 Metoprolol Tartrate [Lopressor] 100 mg PO Q8H 01/11/19 predniSONE 20 mg PO QAM 01/11/19 Gabapentin [Neurontin] 400 mg PO QID #120 cap 01/16/19 HYDROcodone/APAP 10-325MG [[place] 10-325] 1 tab PO Q6H PRN #20 tab 01/16/19 Omeprazole [PriLOSEC] 20 mg PO QAM 02/02/19 L.acidoph,Paracasei, B.lactis [Probiotic] 1 cap PO DAILY 02/16/19 Multivitamins, Thera [Multivitamin (formulary)] 1 tab PO DAILY 02/16/19
[2019-02-25 16:45] LABS: Glucose,Whole Blood 183 mg/dL (75-99)
[2019-02-25] MEDS: TAMSULOSIN 0.4 MG CAP.ER.24H PO SCH (19:55)
[2019-02-25] MEDS: CYCLOBENZAPRINE 10 MG TAB PO SCH (19:55)
[2019-02-25 20:28] LABS: Glucose,Whole Blood 188 mg/dL (75-99)
--- NOTE | 2019-02-25 23:15 | P.PN ---
Subjective Progress Note Date: 02/25/19 Principal diagnosis: Anemia of acute blood loss, melena Patient seen lying in bed today reporting that he has tolerated his diet. No abdominal pain reported. He reports that frequency of bowel movements have improved, still dark. Objective - Vital Signs Vital signs: Vital Signs Temp 96.8 F L 02/25/19 20:00 Pulse 72 02/25/19 21:01 Resp 18 02/25/19 20:00 BP 188/79 02/25/19 20:00 Pulse Ox 97 02/25/19 20:47 Intake & Output 02/25/19 02/25/19 02/26/19 06:59 18:59 06:59 Intake Total 640 226 240 Balance 640 226 240 Weight 107 kg Intake: IV 20 Invasive Line 4 20 Oral 226 240 Blood Product 620 Rc As-1 Unit 310 [id number] Other: Voiding Method Urinal Urinal # Voids 1 4 - Exam On physical examination, patient appears comfortable in no apparent distress. HEAD: Normocephalic, atraumatic. EYES: No scleral icterus. No conjunctival injection. MOUTH: No lesions, tongue midline. NECK: Trachea midline, no gross abnormalities. CHEST: Decreased air entry bilaterally, with coarse respiratory noises in the lower lungs (left greater than right). HEART: S1-S2 appreciated. ABDOMEN: Soft, obese. Bowel sounds are positive. No organomegaly. No guarding or rigidity. EXTREMITIES: Bilateral 1+ pedal edema. SKIN: No rashes, no jaundice. NEUROLOGIC: Alert and oriented x3. - Labs CBC & Chem 7: 02/25/19 06:34 02/25/19 06:34 Labs: Abnormal Lab Results - Last 24 Hours (Table) 02/25/19 02/25/19 02/25/19 Range/Units 06:10 06:34 06:34 WBC 13.2 H (3.8-10.6) k/uL RBC 3.09 L (4.30-5.90) m/uL Hgb 8.7 L D (13.0-17.5) gm/dL Hct 28.2 L (39.0-53.0) % MCHC 30.8 L (31.0-37.0) g/dL RDW 17.3 H (11.5-15.5) % Neutrophils # 11.1 H (1.3-7.7) k/uL Lymphocytes # 0.9 L (1.0-4.8) k/uL BUN 23 H (9-20) mg/dL Glucose 122 H (74-99) mg/dL POC Glucose (mg/dL) 138 H (75-99) mg/dL AST 156 H (17-59) U/L ALT 74 H (21-72) U/L Alkaline Phosphatase 321 H (38-126) U/L Total Protein 5.1 L (6.3-8.2) g/dL Albumin 2.8 L (3.5-5.0) g/dL 02/25/19 02/25/19 02/25/19 Range/Units 12:01 16:44 20:27 WBC (3.8-10.6) k/uL RBC (4.30-5.90) m/uL Hgb (13.0-17.5) gm/dL Hct (39.0-53.0) % MCHC (31.0-37.0) g/dL RDW (11.5-15.5) % Neutrophils # (1.3-7.7) k/uL Lymphocytes # (1.0-4.8) k/uL BUN (9-20) mg/dL Glucose (74-99) mg/dL POC Glucose (mg/dL) 151 H 183 H 188 H (75-99) mg/dL AST (17-59) U/L ALT (21-72) U/L Alkaline Phosphatase (38-126) U/L Total Protein (6.3-8.2) g/dL Albumin (3.5-5.0) g/dL Microbiology - Last 24 Hours (Table) 02/23/19 16:30 Gram Stain - Preliminary Sputum Sputum Culture - Preliminary Gram Neg Bacilli 02/22/19 12:06 Blood Culture - Preliminary Blood No Growth after 72 hours 02/22/19 12:06 Urine Culture - Final Urine,Voided Klebsiella pneumoniae Assessment and Plan (1) Melena Narrative/Plan: 68-year-old male with multiple medical comorbidities including recurrent pneumon ia, small cell lung cancer, COPD, coronary artery disease and CVA who presented with reports of shortness of breath. Currently he is being treated for pneumonia. Patient does have a normocytic anemia but had a fall in his hemoglobin during his hospitalization with reports of black stool. The patient has been on steroid therapy, aspirin therapy and anticoagulation therapy. Concern is for upper GI bleed with differential including peptic ulcer disease, gastritis/esophagitis, or other GI pathology. Hemoglobin currently 8.7 from 7 previously. Current Visit: Yes Status: Acute Code(s): K92.1 - MELENA SNOMED Code(s): 6996525 (2) Normocytic normochromic anemia Narrative/Plan: Likely multifactorial secondary to anemia of chronic disease with component of possible GI bleeding in the setting of melena. Current Visit: Yes Status: Acute Priority: High Code(s): D64.9 - ANEMIA, UNSPECIFIED SNOMED Code(s): 11198805 (3) Small cell lung cancer Current Visit: Yes Status: Acute Priority: High Code(s): C34.90 - MALIGNANT NEOPLASM OF UNSP PART OF UNSP BRONCHUS OR LUNG SNOMED Code(s): 037081186 (4) Transaminitis Narrative/Plan: Patient with elevation in AST and ALT in the setting of innumerable liver lesions likely metastases from lung cancer. Current Visit: Yes Status: Acute Priority: High Code(s): R74.0 - NONSPEC ELEV OF LEVELS OF TRANSAMNS & LACTIC ACID DEHYDRGNSE SNOMED Code(s): 137875950 Plan: Supportive care Anticoagulation being held Continue to monitor hemoglobin and transfuse as needed Okay for low fiber diet Continue IV Protonix 40 mg twice daily Extensive discussion with the patient and his who is bedside about increased risks of endoscopic evaluation in the setting of pneumonia and lung cancer and underlying COPD, and at this time he would like to pursue medical management with PPI therapy with plan for reevaluation of possible endoscopic evaluation and EGD if further fall in hemoglobin or symptoms persist Continue to monitor liver enzymes, suspect secondary to underlying metastatic lung cancer Thank you for allowing us to participate in the care of the patient, the GI service will stand by, please call us back with any questions or concerns
[2019-02-26 06:16] LABS: Glucose,Whole Blood 120 mg/dL (75-99)
[2019-02-26] MEDS: INSULIN ASPART (NovoLOG) 100 UNIT/ML VIAL SQ SCH ×4 (06:22→22:02)
[2019-02-26] MEDS: DILTIAZEM ORAL 30 MG TAB PO SCH ×4 (06:22→22:02)
[2019-02-26 06:54] LABS: Anisocytosis Slight; Basophils % (A) 0 %; Eosinophils % (A) 0 %; HCT 28.7 % (39.0-53.0); HGB 8.6 gm/dL (13.0-17.5); Hypochromasia Marked; Lymphocytes # (A) 1.2 k/uL (1.0-4.8); Lymphocytes % (A) 10 %; MCH 27.5 pg (25.0-35.0); MCHC 29.8 g/dL (31.0-37.0); MCV 92.4 fL (80.0-100.0); Mean Platelet Volume 7.3; Monocytes # (A) 0.8 k/uL (0-1.0); Monocytes % (A) 7 %; Neutrophils # (A) 9.8 k/uL (1.3-7.7); Neutrophils % (A) 81 %; Platelet Count 267 k/uL (150-450); Poikilocytosis Slight; RBC 3.11 m/uL (4.30-5.90); RDW 17.2 % (11.5-15.5)
[2019-02-26] MEDS: IPRATROPIUM-ALBUTEROL 3 ML NEB INHALATION SCH ×4 (07:36→20:19)
[2019-02-26] MEDS: PANTOPRAZOLE 40 MG/10 ML VIAL IVP SCH ×2 (08:19→19:53)
[2019-02-26] MEDS: ERTAPENEM 1 GM in SODIUM CHLORIDE 0.9% 50 ML IVPB SCH (08:19)
[2019-02-26] MEDS: METOPROLOL TARTRATE 50 MG TAB PO SCH ×3 (08:20→22:04)
[2019-02-26] MEDS: predniSONE 20 MG TAB PO SCH (08:20)
[2019-02-26] MEDS: GABAPENTIN 400 MG CAP PO SCH ×4 (08:20→19:53)
[2019-02-26] MEDS: DIGOXIN 250 MCG TAB PO SCH (08:20)
[2019-02-26] MEDS: MORPHINE SULFATE 4 MG/ML SYRINGE IV PRN ×4 (08:28→19:59)
[2019-02-26 11:44] LABS: Glucose,Whole Blood 135 mg/dL (75-99)
--- NOTE | 2019-02-26 12:37 | P.PN ---
Subjective Progress Note Date: 02/26/19 Patient seen and examined at bedside and appears to be in better spirits today he reports doing well with his low fiber diet, still having some episodes of dark stools. Objective - Vital Signs Vital signs: Vital Signs Temp 97.4 F L 02/26/19 08:00 Pulse 80 02/26/19 11:12 Resp 18 02/26/19 08:00 BP 150/69 02/26/19 08:00 Pulse Ox 96 02/26/19 08:00 Intake & Output 02/25/19 02/26/19 02/26/19 18:59 06:59 18:59 Intake Total 226 240 226 Balance 226 240 226 Weight 106.3 kg Intake: Oral 226 240 226 Other: Voiding Method Urinal # Voids 4 2 - Exam Constitutional: No acute distress, conversant, pleasant Eyes: Anicteric sclerae, moist conjunctiva, no lid-lag, PERRLA ENMT: NC/AT,Oropharynx clear, no erythema, exudates Neck:Supple, FROM, no masses, or JVD, No carotid bruits; No thyromegaly Lungs: Few scattered rhonchi Normal respiratory effort, no accessory muscle use on 2 L is a cannula with good oxygen saturations, unlabored Cardiovascular: Heart regular in rate and rhythm, No murmurs, gallops, or rubs no peripheral edema Abdominal: Soft Nontender, nom distended, no guarding, no rebound or rigidity, Normoactive bowel sounds No hepatomegaly, No splenomegaly, No palpable mass No abdominal wall hernia noted Skin: Normal temperature, tone, texture, turgor, No induration No subcutaneous nodules, No rash, lesions, No ulcers Extremities:No digital cyanosis No clubbing, Pedal pulses intact and symmetrical Radial pulses intact and symmetrical Normal gait and station, No calf tenderness Psychiatric: Alert and oriented to person, place and time, Appropriate affect Intact judgement Neuro: Muscles Strength 5/5 in all 4 extremities, Sensation to light touch grossly present throughout, Cranial nerves II-XII grossly intact. No focal sensory deficits - Labs CBC & Chem 7: 02/26/19 06:05 02/25/19 06:34 Labs: Abnormal Lab Results - Last 24 Hours (Table) 02/25/19 02/25/19 02/26/19 Range/Units 16:44 20:27 06:05 WBC 12.0 H (3.8-10.6) k/uL RBC 3.11 L (4.30-5.90) m/uL Hgb 8.6 L (13.0-17.5) gm/dL Hct 28.7 L (39.0-53.0) % MCHC 29.8 L (31.0-37.0) g/dL RDW 17.2 H (11.5-15.5) % Neutrophils # 9.8 H (1.3-7.7) k/uL POC Glucose (mg/dL) 183 H 188 H (75-99) mg/dL 02/26/19 02/26/19 Range/Units 06:12 11:43 WBC (3.8-10.6) k/uL RBC (4.30-5.90) m/uL Hgb (13.0-17.5) gm/dL Hct (39.0-53.0) % MCHC (31.0-37.0) g/dL RDW (11.5-15.5) % Neutrophils # (1.3-7.7) k/uL POC Glucose (mg/dL) 120 H 135 H (75-99) mg/dL Microbiology - Last 24 Hours (Table) 02/23/19 16:30 Gram Stain - Final Sputum Sputum Culture - Final Klebsiella pneumoniae 02/22/19 12:06 Blood Culture - Preliminary Blood No Growth after 72 hours 02/22/19 12:06 Urine Culture - Final Urine,Voided Klebsiella pneumoniae Assessment and Plan (1) HCAP (healthcare-associated pneumonia) Narrative/Plan: * Patient afebrile with leukocytosis 13.2 up from 10.9 * Sputum culture growing gram-negative bacilli does have a history of Klebsiella pneumonia , ESB * Urine also growing same organism ID consultation requested * Continue current regimen with Invanz per pulmonary recommendations Current Visit: Yes Status: Acute Code(s): J18.9 - PNEUMONIA, UNSPECIFIED ORGANISM SNOMED Code(s): 618187488 (2) Small cell lung cancer Narrative/Plan: * Appreciate recommendations by hematology oncology * Patient planning to proceed with chemotherapy * Has metastatic disease with liver lesions hilar adenopathy, bone scan was negative * Staging workup negative for brain metastasis MRI showing no metastatic disease only nonspecific white matter demyelination due to chronic small vessel ischemia and probable age-related atrophy Current Visit: Yes Status: Acute Priority: High Code(s): C34.90 - MALIGNANT NEOPLASM OF UNSP PART OF UNSP BRONCHUS OR LUNG SNOMED Code(s): 800239434 (3) Transaminitis Narrative/Plan: * Likely secondary to metastatic disease from small cell lung cancer primary Current Visit: Yes Status: Acute Priority: High Code(s): R74.0 - NONSPEC ELEV OF LEVELS OF TRANSAMNS & LACTIC ACID DEHYDRGNSE SNOMED Code(s): 531948191 (4) Essential hypertension Narrative/Plan: * Blood pressure stable controlled on home regimen Current Visit: No Status: Chronic Code(s): I10 - ESSENTIAL (PRIMARY) HYPERTENSION SNOMED Code(s): 30465015 (5) Normocytic normochromic anemia Narrative/Plan: * Multifactorial secondary to anemia of chronic disease in the setting of a possible GI bleed * Hemoglobin 8.7 after 3 unit packed RBC transfusion up from 6.5 the recheck CBC in the morning * The patient's dark stools have diminished continue watchful waiting, no endoscopic workup planned at this time hence we'll advance diet Current Visit: Yes Status: Acute Priority: High Code(s): D64.9 - ANEMIA, UNSPECIFIED SNOMED Code(s): 35409120 Plan: Disposition * Appreciate consultants recommendations * Follow up CBC/ * The patient to have pain management consult
--- NOTE | 2019-02-26 15:36 | P.PN ---
Subjective Progress Note Date: 02/26/19 Principal diagnosis: Left lower lobe pneumonia, likely hospital-acquired This is a pleasant 68-year-old male patient with advanced COPD, history of recurrent pneumonias and a recent diagnosis of small cell lung cancer based on a bronchoscopy that was done last week by our service. The patient mcpherson multiple medical problems and comorbidities. Is obese and he has COPD, coronary artery disease, history of CVA, history of paroxysmal atrial fibrillation and the patient is on long-term and to coagulation with Eliquis and the patient also has history of diastolic heart failure. The patient has had previous bronchoscopies and previous infections with Klebsiella pneumoniae/ESBL producing organism based on a previous sputum cultures from 12/21/2018. The most recent bronchoscopy that was done on confirmed diagnoses based on some endobronchial abnormality seen in the left upper lobe. The patient was briefly intubated and placed on a mechanical ventilator following the bronchoscopy and following that he was weaned off the mechanical ventilator and he was discharged home few days ago. Following his discharge, the patient got short of breath again and he was having increased cough congestion and he was admitted for COPD exacerbation and suspected pneumonia. His cough and a thick yellowish sputum. He is currently on IV Zosyn. No fever. No chills. No chest pain. No hemoptysis. No pleurisy. He is aware of his recent diagnosis of small cell lung cancer. Chest x-ray shows left hilar fullness and consolidation of the left upper lobe and superimposed pneumonia is suspected at this point in time. A repeat CAT scan of the chest was done on 02/22/2019 and it showed breathing artifact, no evidence of any pulmonary embolism and that his COPD and pulmonary arterial hypertension and there is a mass encasing the left hilar area putting of the left upper lobe bronchus enlarging currently measuring 2.5 cm and there is also increase in diffuse mediastinal lymphadenopathy. This is consistent with small cell lung cancer. There is also new consolidation is quite extensive and the peripheral left lower lobe and pneumonia suspected this point in time. There is also increasing septal lines in the left upper lobe which could present pulmonary vessel congestion or even lymphangitic spread of the tumor. The left that he had gland measuring 1.3 cm versus 1.5 cm compared to previous evaluations. On 02/24/2019 patient seen in follow-up on the selective care unit. He is sitting up in a chair, in no acute distress, apparently yesterday patient had several episodes of black tarry stools, and this morning's hemoglobin is down to 7.0, he did receive 1 unit of blood yesterday for hemoglobin of 6.5, he will receive 2 more units this morning. GI service consultation is pending, patient's Eliquis and aspirin have been put on hold, hemodynamically patient remains stable, complains of worsening shortness of breath or chest pain, no cough or congestion. Patient remains on Invanz, sputum culture is pending, blood culture showed no growth, urine culture was positive for gram-negative bacilli On 02/25/2019 patient seen in follow-up on selective care unit. His breathing is stable, and patient is on 2 L of oxygen with a pulse ox of 97%, he is afebrile, hemodynamically patient is stable. Currently patient had episode last night where he was confused, and wandering the halls and was upset about liquid diet. Today's hemoglobin is 8.7, patient did receive 3 units of packed red blood cells over the course of last 2 days. GI service is following, and jacquie ent is on clear liquid diet. No significant cough or congestion, rest of blood work has been reviewed showing the blood cell count 13.2, platelet count is 245, a large joints were within normal limits, BUN is 23 creatinine is 1.03. Urine culture was positive for Klebsiella pneumonia, ESBL, and gram-negative bacilli in his sputum, no fever or chills, patient remains on Invanz. Blood cultures are negative, aspirin and Eliquis are on hold. MRI of the brain was completed showing no evident metastatic disease, nonspecific white matter demyelination due to chronic small vessel ischemia and probably age-related atrophy. On 02/26/2019 patient seen in follow-up on selective care unit, resting co mfortably in bed, in no acute distress, his breathing is stable, he is on 2 L of oxygen and the pulse ox of 94%, afebrile, lung sounds reveal a few scattered rhonchi, no wheezing, no significant cough or congestion. Sputum culture was positive for ESBL producing Klebsiella pneumonia, and urine culture was positive for the same, blood cultures, and patient is on Invanz for antibiotic coverage. No fever or chills, no confusion on today's exam. No complaint of chest pain. Today's labs have been reviewed, showing white blood cell count of 12.0, hemoglobin of 8.6. Objective - Vital Signs Vital signs: Vital Signs Temp 97.2 F L 02/26/19 12:00 Pulse 75 02/26/19 12:00 Resp 18 02/26/19 12:00 BP 124/52 02/26/19 12:00 Pulse Ox 94 L 02/26/19 12:00 Intake & Output 02/25/19 02/26/19 02/26/19 18:59 06:59 18:59 Intake Total 226 240 226 Balance 226 240 226 Weight 106.3 kg Intake: Oral 226 240 226 Other: Voiding Method Urinal # Voids 4 2 - Exam GENERAL EXAM: Alert, pleasant, 68-year-old white male, on 2 L of oxygen with a pulse ox of 97% comfortable in no apparent distress. HEAD: Normocephalic/atraumatic. EYES: Normal reaction of pupils, equal size. Conjunctiva pink, sclera white. NOSE: Clear with pink turbinates. THROAT: No erythema or exudates. NECK: No masses, no JVD, no thyroid enlargement, no adenopathy. CHEST: No chest wall deformity. Symmetrical expansion. LUNGS: Equal air entry with a few scattered rhonchi, but no wheeze, rhonchi or dullness. CVS: Regular rate and rhythm, normal S1 and S2, no gallops, no murmurs, no rubs ABDOMEN: Soft, nontender. No hepatosplenomegaly, normal bowel sounds, no guarding or rigidity. EXTREMITIES: No clubbing, 1+ edema, no cyanosis, 2+ pulses and upper and lower extremities. MUSCULOSKELETAL: Muscle strength and tone normal. SPINE: No scoliosis or deformity SKIN: No rashes CENTRAL NERVOUS SYSTEM: Alert and oriented -3. No focal deficits, tone is normal in all 4 extremities. PSYCHIATRIC: Alert and oriented -3. Appropriate affect. Intact judgment and insight. - Labs CBC & Chem 7: 02/26/19 06:05 02/25/19 06:34 Labs: Abnormal Lab Results - Last 24 Hours (Table) 02/25/19 02/25/19 02/26/19 Range/Units 16:44 20:27 06:05 WBC 12.0 H (3.8-10.6) k/uL RBC 3.11 L (4.30-5.90) m/uL Hgb 8.6 L (13.0-17.5) gm/dL Hct 28.7 L (39.0-53.0) % MCHC 29.8 L (31.0-37.0) g/dL RDW 17.2 H (11.5-15.5) % Neutrophils # 9.8 H (1.3-7.7) k/uL POC Glucose (mg/dL) 183 H 188 H (75-99) mg/dL 02/26/19 02/26/19 Range/Units 06:12 11:43 WBC (3.8-10.6) k/uL RBC (4.30-5.90) m/uL Hgb (13.0-17.5) gm/dL Hct (39.0-53.0) % MCHC (31.0-37.0) g/dL RDW (11.5-15.5) % Neutrophils # (1.3-7.7) k/uL POC Glucose (mg/dL) 120 H 135 H (75-99) mg/dL Microbiology - Last 24 Hours (Table) 02/22/19 12:06 Blood Culture - Preliminary Blood No Growth after 96 hours 02/23/19 16:30 Gram Stain - Final Sputum Sputum Culture - Final Klebsiella pneumoniae Assessment and Plan Plan: Assessment: 1 left lower lobe pneumonia as evident on the most recent CAT scan of the chest. Consider having hospital-acquired pathogens. The patient underwent recent bronchoscopy that was complicated by respiratory failure requiring intubation mechanical ventilation for brief period of time and patient was extubated and discharged home. He has been infected with Klebsiella pneumoniae, ESBL producing organism, and a sputum sample for microbiologic analysis. 2 small cell lung cancer with a left hilar mass in addition to mediastinal lymphadenopathy. 3 acute GI bleeding, patient had several episodes of black tarry stools, anticoagulants and aspirin are on hold 4 COPD \with an FEV1 of 1.59 L which is 40% predicted 5 chronic hypoxic respiratory failure secondary to above 6 chronic atrial fibrillation rate controlled on Eliquis 7 coronary artery disease 8 history of CVA/TIA 9 coronary artery disease 10 hypertension 11 hyperlipidemia 12 osteoarthritis 13 BPH 14 irritable bowel syndrome 15 50-oddw-hywy smoking history quit in May 2018 Plan: Patient is stable from pulmonary perspective, improving, will continue current antibiotic coverage, continue with oral prednisone, anticoagulation is on hold, no evidence of bleeding, patient is tolerating oral diet, he is on PPI therapy, increase activity as tolerated, patient could be considered for discharge possibly in the next 24 hours if there is no evidence of bleeding, and he remains stable I performed a history & physical examination of the patient and discussed their management with my nurse practitioner, Aicha Mosquera. I reviewed the nurse practitioner's note and agree with the documented findings and plan of care. Lung sounds are positive for diminished breath sounds. The findings and the impression was discussed with the patient. I attest to the documentation by the nurse practitioner. Time with Patient: Less than 30
[2019-02-26 16:36] LABS: Glucose,Whole Blood 226 mg/dL (75-99)
[2019-02-26] MEDS: TAMSULOSIN 0.4 MG CAP.ER.24H PO SCH (19:54)
[2019-02-26] MEDS: CYCLOBENZAPRINE 10 MG TAB PO SCH (19:54)
[2019-02-26 21:00] LABS: Glucose,Whole Blood 215 mg/dL (75-99)
--- NOTE | 2019-02-26 23:52 | P.CONS ---
History of Present Illness - Reason for Consult Consult date: 02/26/19 ESBL pneumonia and UTI Requesting physician: Braydon Arenas - Chief Complaint Shortness of breath x few days - History of Present Illness Patient is 68-year-old male with a recent diagnosis of metastatic lung cancer presenting to the ER at [facility] with chief complaints of increasing shortness of breath that has been progressively getting worse for last few days before presentation to the hospital the patient also have a cough which has been mild to moderate intensity and being of some yellow sputum and no hemoptysis. Denies significant pleuritic chest pain no nausea no vomiting no choking on the food no diarrhea and no high-grade fever with the symptoms and the patient presented to [facility] ER the patient was evaluated by the ER physician patient did have a CT angiogram that was negative for PE did shows evidence of increasing left hilar mass with left lower lobe consolidation patient had did have sputum cultures obtained and was treated with Zosyn he also have a UA that was not significantly positive urine cultures as well as sputum cultures are now showing ESBL Klebsiella the culture has been negative patient anybody has been switched over to Invanz infection disease was consulted for further recommendation regarding antibiotic therapy Review of Systems Positive points has been mentioned in HPI rest of the systems are negative Past Medical History Past Medical History: Coronary Artery Disease (CAD), Cancer, Chest Pain / Angina, COPD, CVA/TIA, GERD/Reflux, Hyperlipidemia, Hypertension, Osteoarthritis (OA), Prostate Disorder Additional Past Medical History / Comment(s): COPD, coronary artery disease, CVA/TIA, acid reflux, hyperlipidemia, hypertension, osteoarthritis, BPH, vertigo, coronary artery disease, hiatal hernia, IBS, small cell lung cancer, diverticulosis with previous history of diverticulitis History of Any Multi-Drug Resistant Organisms: C-DIFF, ESBL Year Discovered:: 12/23/18 MDRO Source:: Sputum MDRO ESBL,c-diff beginning of January 2019,currently symptom free Past Surgical History: Adenoidectomy, Back Surgery, Heart Catheterization, Hernia Repair, Joint Replacement, Orthopedic Surgery, Tonsillectomy Additional Past Surgical History / Comment(s): L knee replacement, back surgery x2-failed fusion and 2 rods in lower back, L/R cataract surgery, bilat. rib removal (cervical), carpal tunnel R wrist, colonoscopy, L elbow surgery, abdominal hernia repair, 3 R inguinal hernia repairs, L inguinal hernia repair, rectal cystectomy.pain pump(ms) implanted removed 11/06/2018 Past Anesthesia/Blood Transfusion Reactions: Previous Problems w/ Anesthesia Additional Past Anesthesia/Blood Transfusion Reaction / Comm: With first surgery became belligerent when waking up. Past Psychological History: No Psychological Hx Reported Additional Psychological History / Comment(s): Pt resides with his spouse. He uses a cane to ambulate. has nebulizer He drives. 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 Is no longer smoking. No animals in the home Smoking Status: Former smoker Past Alcohol Use History: None Reported Additional Past Alcohol Use History / Comment(s): Pt started smoking in 1962 and quit in May of 2018. Past Drug Use History: None Reported - Past Family History Mother Family Medical History: No Reported History Additional Family Medical History / Comment(s): Mother was healthy and lived to be 88 or 89yrs old. Father Family Medical History: Cancer Additional Family Medical History / Comment(s): Father of lung cancer in his early 70's. Medications and Allergies Home Medications Medication Instructions Recorded Confirmed Type Aspirin 81 mg PO DAILY 11/21/18 02/22/19 History Atorvastatin [Lipitor] 80 mg PO HS 11/21/18 02/22/19 History Cyclobenzaprine [Flexeril] 10 mg PO HS 11/30/18 02/22/19 History Apixaban [Eliquis] 5 mg PO BID #20 tab 12/03/18 02/22/19 Rx Digoxin 250 mcg PO DAILY #10 tablet 12/03/18 02/22/19 Rx Diltiazem HCl 90 mg PO Q6H #40 tablet 12/03/18 02/22/19 Rx Tamsulosin HCl [Flomax] 0.4 mg PO HS #20 capsule 12/03/18 02/22/19 Rx Tiotropium 18 Mcg/Puff [Spiriva] 1 puff INHALATION RT-DAILY 12/06/18 02/22/19 History Metoprolol Tartrate [Lopressor] 100 mg PO Q8H 01/11/19 02/22/19 History predniSONE 20 mg PO QAM 01/11/19 02/22/19 History Gabapentin [Neurontin] 400 mg PO QID #120 cap 01/16/19 02/22/19 Rx HYDROcodone/APAP 10-325MG [[place] 1 tab PO Q6H PRN #20 tab 01/16/19 02/22/19 Rx 10-325] Omeprazole [PriLOSEC] 20 mg PO QAM 02/02/19 02/22/19 History L.acidoph,Paracasei, B.lactis 1 cap PO DAILY 02/16/19 02/22/19 History [Probiotic] Multivitamins, Thera [Multivitamin 1 tab PO DAILY 02/16/19 02/22/19 History (formulary)] Allergies Allergy/AdvReac Type Severity Reaction Status Date / Time montelukast sodium AdvReac Itching Verified 02/22/19 11:21 [From Singulair] Physical Exam Vitals: Vital Signs Temp Pulse Pulse Resp BP Pulse Ox 02/26/19 12:00 97.2 F L 75 18 124/52 94 L 02/26/19 11:12 80 02/26/19 11:03 76 02/26/19 08:00 97.4 F L 77 18 150/69 96 02/26/19 07:50 72 02/26/19 07:39 76 02/26/19 03:14 97 F L 78 18 142/70 98 02/26/19 00:00 72 18 158/72 97 02/25/19 21:01 72 02/25/19 20:47 73 97 02/25/19 20:00 96.8 F L 68 18 188/79 98 02/25/19 16:28 79 02/25/19 16:17 78 02/25/19 15:45 98 F 70 16 139/63 96 Intake and Output 02/25/19 02/26/19 02/26/19 22:59 06:59 14:59 Intake Total 240 226 Balance 240 226 Intake: Oral 240 226 Other: Voiding Method Urinal # Voids 2 Weight 106.3 kg GENERAL DESCRIPTION: An elderly male lying in bed, no distress. No tachypnea or accessory muscle of respiration use. HEENT: Shows Pallor , no scleral icterus. Oral mucous membrane is dry. No pharyngeal erythema or thrush NECK: Trachea central, no thyromegaly. LUNGS: Unlabored breathing. Decreased breath sound at the base, no wheeze. No wheeze or crackle. HEART: S1, S2, regular rate and rhythm. No loud murmur ABDOMEN: Soft, no tenderness , guarding or rigidity, no organomegaly EXTREMITIES: No edema of feet. SKIN: No rash, no masses palpable. NEUROLOGICAL: The patient is awake, alert, oriented x3, mood and affect normal. Results CBC & Chem 7: 02/26/19 06:05 02/25/19 06:34 Labs: Abnormal Lab Results - Last 24 Hours (Table) 02/25/19 02/25/19 02/26/19 Range/Units 16:44 20:27 06:05 WBC 12.0 H (3.8-10.6) k/uL RBC 3.11 L (4.30-5.90) m/uL Hgb 8.6 L (13.0-17.5) gm/dL Hct 28.7 L (39.0-53.0) % MCHC 29.8 L (31.0-37.0) g/dL RDW 17.2 H (11.5-15.5) % Neutrophils # 9.8 H (1.3-7.7) k/uL POC Glucose (mg/dL) 183 H 188 H (75-99) mg/dL 02/26/19 02/26/19 Range/Units 06:12 11:43 WBC (3.8-10.6) k/uL RBC (4.30-5.90) m/uL Hgb (13.0-17.5) gm/dL Hct (39.0-53.0) % MCHC (31.0-37.0) g/dL RDW (11.5-15.5) % Neutrophils # (1.3-7.7) k/uL POC Glucose (mg/dL) 120 H 135 H (75-99) mg/dL Microbiology - Last 24 Hours (Table) 02/22/19 12:06 Blood Culture - Preliminary Blood No Growth after 96 hours 02/23/19 16:30 Gram Stain - Final Sputum Sputum Culture - Final Klebsiella pneumoniae 02/22/19 12:06 Urine Culture - Final Urine,Voided Klebsiella pneumoniae Assessment and Plan Assessment: 1-patient with recent diagnosis of metastatic lung cancer in this patient is in hospital with increasing shortness of breath along with a cough and yellow sputum production with a CT angiogram which was evidence of emerging left hilar mass with left lower lobe consolidation likely component of postobstructive pneumonia his sputum has been followed as with ESBL Klebsiella for culture has been negative 2-patient her with a positive urine culture however no significant urinary symptoms and he has not been significantly positive possible colonization Plan: 1-Invanz 1 g daily 2-patient will need a midline continue with IV Invanz for at least 2 weeks outpatient setting we will follow on clinical condition and culture to further adjust medication if needed Thank you for this consultation will follow this patient along with you Time with Patient: Greater than 30
[2019-02-27] MEDS: MORPHINE SULFATE 4 MG/ML SYRINGE IV PRN ×2 (01:37→11:57)
[2019-02-27] MEDS: DILTIAZEM ORAL 30 MG TAB PO SCH ×4 (05:48→22:42)
[2019-02-27 06:07] LABS: Glucose,Whole Blood 157 mg/dL (75-99)
[2019-02-27] MEDS: INSULIN ASPART (NovoLOG) 100 UNIT/ML VIAL SQ SCH ×4 (06:08→22:40)
[2019-02-27 08:13] LABS: Anisocytosis Slight; HCT 29.5 % (39.0-53.0); Hypochromasia Marked; MCH 29.3 pg (25.0-35.0); MCHC 30.6 g/dL (31.0-37.0); MCV 95.6 fL (80.0-100.0); Macrocytosis Slight; Mean Platelet Volume 8.3; Platelet Count 284 k/uL (150-450); Poikilocytosis Slight; RBC 3.09 m/uL (4.30-5.90); RDW 17.2 % (11.5-15.5); WBC 16.2 k/uL (3.8-10.6)
[2019-02-27] MEDS: METOPROLOL TARTRATE 50 MG TAB PO SCH ×3 (08:16→22:41)
[2019-02-27] MEDS: HYDROcodone/APAP 10-325MG 1 EACH TAB PO PRN (08:16)
[2019-02-27] MEDS: ERTAPENEM 1 GM in SODIUM CHLORIDE 0.9% 50 ML IVPB SCH (08:17)
[2019-02-27] MEDS: IPRATROPIUM-ALBUTEROL 3 ML NEB INHALATION SCH ×4 (08:29→19:32)
[2019-02-27] MEDS: DIGOXIN 250 MCG TAB PO SCH (09:14)
[2019-02-27] MEDS: PANTOPRAZOLE 40 MG/10 ML VIAL IVP SCH ×2 (09:14→22:41)
[2019-02-27] MEDS: predniSONE 20 MG TAB PO SCH (09:14)
[2019-02-27] MEDS: GABAPENTIN 400 MG CAP PO SCH ×4 (09:14→22:42)
[2019-02-27 12:19] LABS: Glucose,Whole Blood 133 mg/dL (75-99)
[2019-02-27 13:27] LABS: Band Neutrophils % 5 %; Eosinophils # (M) 0.16 k/uL (0-0.7); Lymphocytes # (M) 1.13 k/uL (1.0-4.8); Metamyelocytes # (M) 0.49 k/uL (0); Metamyelocytes % 3 %; Monocytes # (M) 1.46 k/uL (0-1.0); Myelocytes # (M) 0.49 k/uL (0); Myelocytes % 3 %; Neutrophils % (M) 74 %; Nucleated Red Blood Cells 0 /100 WBC (0-0); Total Cells Counted 200
--- NOTE | 2019-02-27 13:57 | P.PN ---
Subjective Progress Note Date: 02/27/19 Principal diagnosis: Left lower lobe pneumonia, likely hospital-acquired This is a pleasant 68-year-old male patient with advanced COPD, history of recurrent pneumonias and a recent diagnosis of small cell lung cancer based on a bronchoscopy that was done last week by our service. The patient mcpherson multiple medical problems and comorbidities. Is obese and he has COPD, coronary artery disease, history of CVA, history of paroxysmal atrial fibrillation and the patient is on long-term and to coagulation with Eliquis and the patient also has history of diastolic heart failure. The patient has had previous bronchoscopies and previous infections with Klebsiella pneumoniae/ESBL producing organism based on a previous sputum cultures from 12/21/2018. The most recent bronchoscopy that was done on confirmed diagnoses based on some endobronchial abnormality seen in the left upper lobe. The patient was briefly intubated and placed on a mechanical ventilator following the bronchoscopy and following that he was weaned off the mechanical ventilator and he was discharged home few days ago. Following his discharge, the patient got short of breath again and he was having increased cough congestion and he was admitted for COPD exacerbation and suspected pneumonia. His cough and a thick yellowish sputum. He is currently on IV Zosyn. No fever. No chills. No chest pain. No hemoptysis. No pleurisy. He is aware of his recent diagnosis of small cell lung cancer. Chest x-ray shows left hilar fullness and consolidation of the left upper lobe and superimposed pneumonia is suspected at this point in time. A repeat CAT scan of the chest was done on 02/22/2019 and it showed breathing artifact, no evidence of any pulmonary embolism and that his COPD and pulmonary arterial hypertension and there is a mass encasing the left hilar area putting of the left upper lobe bronchus enlarging currently measuring 2.5 cm and there is also increase in diffuse mediastinal lymphadenopathy. This is consistent with small cell lung cancer. There is also new consolidation is quite extensive and the peripheral left lower lobe and pneumonia suspected this point in time. There is also increasing septal lines in the left upper lobe which could present pulmonary vessel congestion or even lymphangitic spread of the tumor. The left that he had gland measuring 1.3 cm versus 1.5 cm compared to previous evaluations. On 02/24/2019 patient seen in follow-up on the selective care unit. He is sitting up in a chair, in no acute distress, apparently yesterday patient had several episodes of black tarry stools, and this morning's hemoglobin is down to 7.0, he did receive 1 unit of blood yesterday for hemoglobin of 6.5, he will receive 2 more units this morning. GI service consultation is pending, patient's Eliquis and aspirin have been put on hold, hemodynamically patient remains stable, complains of worsening shortness of breath or chest pain, no cough or congestion. Patient remains on Invanz, sputum culture is pending, blood culture showed no growth, urine culture was positive for gram-negative bacilli On 02/25/2019 patient seen in follow-up on selective care unit. His breathing is stable, and patient is on 2 L of oxygen with a pulse ox of 97%, he is afebrile, hemodynamically patient is stable. Currently patient had episode last night where he was confused, and wandering the halls and was upset about liquid diet. Today's hemoglobin is 8.7, patient did receive 3 units of packed red blood cells over the course of last 2 days. GI service is following, and jacquie ent is on clear liquid diet. No significant cough or congestion, rest of blood work has been reviewed showing the blood cell count 13.2, platelet count is 245, a large joints were within normal limits, BUN is 23 creatinine is 1.03. Urine culture was positive for Klebsiella pneumonia, ESBL, and gram-negative bacilli in his sputum, no fever or chills, patient remains on Invanz. Blood cultures are negative, aspirin and Eliquis are on hold. MRI of the brain was completed showing no evident metastatic disease, nonspecific white matter demyelination due to chronic small vessel ischemia and probably age-related atrophy. On 02/26/2019 patient seen in follow-up on selective care unit, resting co mfortably in bed, in no acute distress, his breathing is stable, he is on 2 L of oxygen and the pulse ox of 94%, afebrile, lung sounds reveal a few scattered rhonchi, no wheezing, no significant cough or congestion. Sputum culture was positive for ESBL producing Klebsiella pneumonia, and urine culture was positive for the same, blood cultures, and patient is on Invanz for antibiotic coverage. No fever or chills, no confusion on today's exam. No complaint of chest pain. Today's labs have been reviewed, showing white blood cell count of 12.0, hemoglobin of 8.6. On 02/27/2019 patient seen in follow-up selective care unit, his breathing is stable, he is on 2 L of oxygen and the pulse ox of 92%. no further bleeding overnight, hemoglobin today is 9.0 she is tolerating oral diet. no fever or chills, patient is on IV antibiotics were ESBL producing Klebsiella pneumonia, and urine cultures were positive for the same. Afebrile, hemodynamically stable, breathing has improved, patient can be considered for discharge home today. Objective - Vital Signs Vital signs: Vital Signs Temp 97.7 F 02/27/19 07:57 Pulse 72 02/27/19 12:46 Resp 18 02/27/19 11:53 BP 163/71 02/27/19 11:53 Pulse Ox 92 L 02/27/19 11:53 Intake & Output 02/26/19 02/27/19 02/27/19 18:59 06:59 18:59 Intake Total 706 790 Output Total 600 Balance 706 -600 790 Weight 107.3 kg Intake: Intake, IV Titration 50 Amount Ertapenem 1 gm In Sodium 50 Chloride 0.9% 50 ml @ 100 mls/hr IVPB DAILY [facility] Rx #:[id number] Oral 706 740 Output: Urine 600 Other: # Voids 1 1 - Exam GENERAL EXAM: Alert, pleasant, 68-year-old white male, on 2 L of oxygen with a pulse ox of 97% comfortable in no apparent distress. HEAD: Normocephalic/atraumatic. EYES: Normal reaction of pupils, equal size. Conjunctiva pink, sclera white. NOSE: Clear with pink turbinates. THROAT: No erythema or exudates. NECK: No masses, no JVD, no thyroid enlargement, no adenopathy. CHEST: No chest wall deformity. Symmetrical expansion. LUNGS: Equal air entry with a few scattered rhonchi, but no wheeze, rhonchi or dullness. CVS: Regular rate and rhythm, normal S1 and S2, no gallops, no murmurs, no rubs ABDOMEN: Soft, nontender. No hepatosplenomegaly, normal bowel sounds, no guarding or rigidity. EXTREMITIES: No clubbing, 1+ edema, no cyanosis, 2+ pulses and upper and lower extremities. MUSCULOSKELETAL: Muscle strength and tone normal. SPINE: No scoliosis or deformity SKIN: No rashes CENTRAL NERVOUS SYSTEM: Alert and oriented -3. No focal deficits, tone is normal in all 4 extremities. PSYCHIATRIC: Alert and oriented -3. Appropriate affect. Intact judgment and insight. - Labs CBC & Chem 7: 02/27/19 06:53 02/25/19 06:34 Labs: Abnormal Lab Results - Last 24 Hours (Table) 02/26/19 02/26/19 02/27/19 Range/Units 16:34 20:59 06:05 WBC (3.8-10.6) k/uL RBC (4.30-5.90) m/uL Hgb (13.0-17.5) gm/dL Hct (39.0-53.0) % MCHC (31.0-37.0) g/dL RDW (11.5-15.5) % Neutrophils # (Manual) (1.3-7.7) k/uL Monocytes # (Manual) (0-1.0) k/uL Metamyelocytes # (Man) (0) k/uL Myelocytes # (Manual) (0) k/uL POC Glucose (mg/dL) 226 H 215 H 157 H (75-99) mg/dL 02/27/19 02/27/19 Range/Units 06:53 11:58 WBC 16.2 H (3.8-10.6) k/uL RBC 3.09 L (4.30-5.90) m/uL Hgb 9.0 L (13.0-17.5) gm/dL Hct 29.5 L (39.0-53.0) % MCHC 30.6 L (31.0-37.0) g/dL RDW 17.2 H (11.5-15.5) % Neutrophils # (Manual) 12.70 H (1.3-7.7) k/uL Monocytes # (Manual) 1.46 H (0-1.0) k/uL Metamyelocytes # (Man) 0.49 H (0) k/uL Myelocytes # (Manual) 0.49 H (0) k/uL POC Glucose (mg/dL) 133 H (75-99) mg/dL Microbiology - Last 24 Hours (Table) 02/22/19 12:06 Blood Culture - Preliminary Blood No Growth after 96 hours 02/23/19 16:30 Gram Stain - Final Sputum Sputum Culture - Final Klebsiella pneumoniae Assessment and Plan Plan: Assessment: 1 left lower lobe pneumonia as evident on the most recent CAT scan of the chest. sputum cultures were positive for ESBL producing Klebsiella pneumonia The patient underwent recent bronchoscopy that was complicated by respiratory failure requiring intubation mechanical ventilation for brief period of time and patient was extubated and discharged home. He has been infected with Klebsiella pneumoniae, ESBL producing organism, and a sputum sample for microbiologic analysis. 2 small cell lung cancer with a left hilar mass in addition to mediastinal lymphadenopathy. 3 acute GI bleeding, patient had several episodes of black tarry stools, anticoagulants and aspirin are on hold 4 COPD \with an FEV1 of 1.59 L which is 40% predicted 5 chronic hypoxic respiratory failure secondary to above 6 chronic atrial fibrillation rate controlled on Eliquis 7 coronary artery disease 8 history of CVA/TIA 9 coronary artery disease 10 hypertension 11 hyperlipidemia 12 osteoarthritis 13 BPH 14 irritable bowel syndrome 15 [id number] smoking history quit in May 2018 16 urinary tract infection positive for ESBL producing Klebsiella pneumonia Plan: Patient is stable for discharge from pulmonary perspective, no acute events overnight, we'll decrease the prednisone down to 20 mg as the patient complains of not being able to sleep at night. Antibiotics per ID service recommendations, no further bleeding overnight, recommend discharge patient home today. I performed a history & physical examination of the patient and discussed their management with my nurse practitioner, Aicha Mosquera. I reviewed the nurse practitioner's note and agree with the documented findings and plan of care. Lung sounds are positive for diminished breath sounds. The findings and the impression was discussed with the patient. I attest to the documentation by the nurse practitioner. Time with Patient: Less than 30
--- NOTE | 2019-02-27 15:34 | P.PN ---
Subjective Progress Note Date: 02/27/19 Principal diagnosis: shortness of breath Patient is a 68-year-old male with past medical history of COPD with chronic hypoxic respiratory failure, coronary artery disease, prior CVA, paroxysmal atrial fibrillation on Eliquis, and chronic diastolic CHF who presented to the ER with complaints of shortness of breath. Patient has been hospitalized multiple times in the last several months secondary to recurrent pneumonia and hypoxemia associated with cloudy mental status. He has received multiple courses of antibiotics to treat community-acquired pneumonia. He even tually was found have a left hilar mass lesion for which he underwent bronchoscopy on 02/18/19. Results of this showed cell lung cancer. In the emergency department he underwent extensive evaluation. CTA of the chest demonstrated disease progressed and with a mass encasing the left hilar and cutting off the left upper lobe bronchus, 2.5 cm left upper no nodule, increasing diffuse mediastinal adenopathy, and findings suspicious for new diffuse hepatic metastasis. He was also found to have extensive consolidation at the periphery of the left lower lobe and increasing septal lines of the left upper lobe. Initial laboratory analysis showed hemoglobin of 7.3, elevated white blood cell count at 12.1, elevated lactic acid at 3.7, and elevated troponin 0.035 (consistent with his chronic troponin elevation). He was also found to have elevated liver enzymes. He was started on IV antibiotics and admitted for further monitoring and care. Infectious disease, pulmonary, gastroenterology, oncology, and cardiology were all involved in his care. Sputum sample ultimately revealed ESBL E. coli. On 02/23 he developed several episodes of dark tarry stools in his hemoglobin down trended. He received 1 unit of packed red blood cells, his hemoglobin was still 7 on the morning of 02/24 and he received 2 additional units of packed red blood cells. His aspirin and Eliquis were placed on hold. On the evening of 02/24 he had an episode of confusion. On 02/25 he was started on a clear liquid diet by GI. MRI of the brain was done which showed no evidence of metastatic disease but did show some white matter chronic small vessel ischemic changes. On 02/26 he had improvement in his breathing and was noted to be afebrile. Infectious disease is recommending 2 weeks of Invanz and patient subsequently had a midline placed. Patient weighs had elected medical management of his possible GI bleed with PPI therapy. Patient seen and examined at bedside. He denies any chest pain or shortness of breath. He denies any abdominal pain. He is tolerating diet well. Objective - Vital Signs Vital signs: Vital Signs Temp 97.7 F 02/27/19 07:57 Pulse 72 02/27/19 12:46 Resp 18 02/27/19 11:53 BP 163/71 02/27/19 11:53 Pulse Ox 92 L 02/27/19 11:53 Intake & Output 02/26/19 02/27/19 02/27/19 18:59 06:59 18:59 Intake Total 706 790 Output Total 600 Balance 706 -600 790 Weight 107.3 kg Intake: Intake, IV Titration 50 Amount Ertapenem 1 gm In Sodium 50 Chloride 0.9% 50 ml @ 100 mls/hr IVPB DAILY [facility] Rx #:[id number] Oral 706 740 Output: Urine 600 Other: # Voids 1 1 - Exam General: non toxic, no distress, appears at stated age Derm: warm, dry Head: atraumatic, normocephalic, symmetric Eyes: EOMI, no lid lag, anicteric sclera Mouth: no lip lesion, mucus membranes moist Cardiovascular: S1S2 reg, no murmur, positive posterior tibial pulse bilateral, Lungs: Breath sounds bilateral, no rhonchi, no rales , no accessory muscle use Abdominal: soft, nontender to palpation, no guarding, no appreciable organomegaly Ext: no gross muscle atrophy, trace edema, no contractures Neuro: CN II-XI grossly intact, no focal neuro deficits Psych: Alert, oriented, appropriate affect - Labs CBC & Chem 7: 02/27/19 06:53 02/25/19 06:34 Labs: Abnormal Lab Results - Last 24 Hours (Table) 02/26/19 02/26/19 02/27/19 Range/Units 16:34 20:59 06:05 WBC (3.8-10.6) k/uL RBC (4.30-5.90) m/uL Hgb (13.0-17.5) gm/dL Hct (39.0-53.0) % MCHC (31.0-37.0) g/dL RDW (11.5-15.5) % Neutrophils # (Manual) (1.3-7.7) k/uL Monocytes # (Manual) (0-1.0) k/uL Metamyelocytes # (Man) (0) k/uL Myelocytes # (Manual) (0) k/uL POC Glucose (mg/dL) 226 H 215 H 157 H (75-99) mg/dL 02/27/19 02/27/19 Range/Units 06:53 11:58 WBC 16.2 H (3.8-10.6) k/uL RBC 3.09 L (4.30-5.90) m/uL Hgb 9.0 L (13.0-17.5) gm/dL Hct 29.5 L (39.0-53.0) % MCHC 30.6 L (31.0-37.0) g/dL RDW 17.2 H (11.5-15.5) % Neutrophils # (Manual) 12.70 H (1.3-7.7) k/uL Monocytes # (Manual) 1.46 H (0-1.0) k/uL Metamyelocytes # (Man) 0.49 H (0) k/uL Myelocytes # (Manual) 0.49 H (0) k/uL POC Glucose (mg/dL) 133 H (75-99) mg/dL Microbiology - Last 24 Hours (Table) 02/22/19 12:06 Blood Culture - Preliminary Blood No Growth after 120 hours 02/23/19 16:30 Gram Stain - Final Sputum Sputum Culture - Final Klebsiella pneumoniae Assessment and Plan Assessment: Klebsiella pneumonia, 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 - Invanz X 2 weeks per ID, has midline - Oncology recs appreciated: hope to start chemo in 1-2 weeks with carboplatin, etoposide, and atezolizumab, estensive stage - pulm hygeine Acute blood loss anemia secondary to GI bleed -Hemoglobin stable -Continue off Eliquis on PPI -GI recommendations appreciated -Status post 3 units packed red blood cells COPD with exacerbation with chronic hypoxic respiratory failure - prednisone - duoneb - pulm hygeine - pulm recs Chronic atrial fibrillation -Off Eliquis secondary to GI bleed - digoxin, cardizem, lopressor Klebsiella urinary tract infection -Will be treated with Invanz Chronic: Coronary artery disease Hypertension Dyslipidemia Osteoarthritis BPH Irritable bowel syndrome Transfer to general medical floor DVT prophylaxis: SCDs to recent GI bleed Discussed with: Patient, , nursing Anticipated discharge: 1-2 days, once insurance off for Invanz approved Anticipated discharge place: Home A total of 35 minutes was spent on the care of this complex patient more than 50% of the time was spent in counseling and care coordination.
[2019-02-27 17:15] LABS: Glucose,Whole Blood 394 mg/dL (75-99)
[2019-02-27 20:48] LABS: Glucose,Whole Blood 125 mg/dL (75-99)
[2019-02-27] MEDS: TAMSULOSIN 0.4 MG CAP.ER.24H PO SCH (22:42)
[2019-02-27] MEDS: CYCLOBENZAPRINE 10 MG TAB PO SCH (22:42)
[2019-02-28 06:04] LABS: Glucose,Whole Blood 101 mg/dL (75-99)
[2019-02-28] MEDS: DILTIAZEM ORAL 30 MG TAB PO SCH ×4 (06:25→23:05)
[2019-02-28] MEDS: INSULIN ASPART (NovoLOG) 100 UNIT/ML VIAL SQ SCH ×4 (07:49→21:14)
[2019-02-28] MEDS: IPRATROPIUM-ALBUTEROL 3 ML NEB INHALATION SCH ×4 (07:59→19:58)
[2019-02-28] MEDS: GABAPENTIN 400 MG CAP PO SCH ×4 (08:24→21:13)
[2019-02-28] MEDS: DIGOXIN 250 MCG TAB PO SCH (08:24)
[2019-02-28] MEDS: PANTOPRAZOLE 40 MG/10 ML VIAL IVP SCH ×2 (08:24→21:13)
[2019-02-28] MEDS: METOPROLOL TARTRATE 50 MG TAB PO SCH ×3 (08:24→23:05)
[2019-02-28] MEDS: predniSONE 20 MG TAB PO SCH (08:24)
[2019-02-28] MEDS: ERTAPENEM 1 GM in SODIUM CHLORIDE 0.9% 50 ML IVPB SCH (08:27)
[2019-02-28 08:30] LABS: Anisocytosis Slight; HCT 27.7 % (39.0-53.0); HGB 8.1 gm/dL (13.0-17.5); Hypochromasia Marked; MCH 27.1 pg (25.0-35.0); MCHC 29.2 g/dL (31.0-37.0); MCV 92.8 fL (80.0-100.0); Mean Platelet Volume 8.3; Platelet Count 262 k/uL (150-450); RBC 2.99 m/uL (4.30-5.90); RDW 17.1 % (11.5-15.5); WBC 18.4 k/uL (3.8-10.6)
[2019-02-28] MEDS: HYDROcodone/APAP 10-325MG 1 EACH TAB PO PRN (10:19)
[2019-02-28 10:25] LABS: Band Neutrophils % 4 %; Eosinophils # (M) 0.18 k/uL (0-0.7); Lymphocytes # (M) 2.21 k/uL (1.0-4.8); Metamyelocytes # (M) 0.18 k/uL (0); Metamyelocytes % 1 %; Monocytes # (M) 0.74 k/uL (0-1.0); Myelocytes # (M) 0.37 k/uL (0); Myelocytes % 2 %; Neutrophils % (M) 78 %; Nucleated Red Blood Cells 0 /100 WBC (0-0); Total Cells Counted 200
[2019-02-28 12:03] LABS: ABG Base Excess 4.6 mmol/L; ABG HCO3 29 mmol/L (21-25); ABG Oxygen Saturation 93.7 % (94-97); ABG PCO2 44 mmHg (35-45); ABG PH 7.43 (7.35-7.45); ABG PO2 69 mmHg (83-108); ABG TCO2 30 mmol/L (19-24); Allen Test Performed? Yes
[2019-02-28 12:20] LABS: Glucose,Whole Blood 172 mg/dL (75-99)
--- NOTE | 2019-02-28 13:19 | PN ---
PROGRESS NOTE DATE OF SERVICE: 02/27/2019. REASON FOR FOLLOWUP: ESBL E coli pneumonia and UTI. INTERVAL HISTORY: The patient is currently afebrile. Patient is breathing more comfortably. Denies having any chest pain. Continues to have some cough, less sputum production. No hemoptysis. No nausea or vomiting. No abdominal pain. No diarrhea. PHYSICAL EXAMINATION: Blood pressure 163/71 with a pulse of 72, temperature 98. He is 92% on 2 L nasal cannula. General description is an elderly male up in the bed in no distress. Respiratory system: Unlabored breathing with decreased breath sounds at the bases. No wheeze. Heart S1, S2. Regular rate and rhythm. ABDOMEN: Soft, no tenderness. LABS: Hemoglobin is 9 with white count 16.2. DIAGNOSTIC IMPRESSION AND PLAN: Patient with ESBL Klebsiella pneumoniae. Also same pathogen in the urine. Blood culture has been negative. The patient is currently with Invanz and did have slight jump in white count. We will monitor closely. Repeating a chest x-ray. Continue supportive care. MMODL / IJN: [id number] /
[2019-02-28] MEDS ORDERED: CYCLOBENZAPRINE 10 MG TAB PO PRN (16:10)
--- NOTE | 2019-02-28 16:13 | P.PN ---
Subjective Progress Note Date: 02/28/19 (Delayed charting seen at 11:30 AM) Principal diagnosis: shortness of breath Patient is a 68-year-old male with past medical history of COPD with chronic hypoxic respiratory failure, coronary artery disease, prior CVA, paroxysmal atrial fibrillation on Eliquis, and chronic diastolic CHF who presented to the ER with complaints of shortness of breath. Patient has been hospitalized multiple times in the last several months secondary to recurrent pneumonia and hypoxemia associated with cloudy mental status. He has received multiple courses of antibiotics to treat community-acquired pneumonia. He eventually was found have a left hilar mass lesion for which he underwent bronchoscopy on 02/18/19. Results of this showed cell lung cancer. In the emergency department he underwent extensive evaluation. CTA of the chest demonstrated disease progressed and with a mass encasing the left hilar and cutting off the left upper lobe bronchus, 2.5 cm left upper no nodule, increasing diffuse mediastinal adenopathy, and findings suspicious for new diffuse hepatic metastasis. He was also found to have extensive consolidation at the periphery of the left lower lobe and increasing septal lines of the left upper lobe. Initial laboratory analysis showed hemoglobin of 7.3, elevated white blood cell count at 12.1, elevated lactic acid at 3.7, and elevated troponin 0.035 (consistent with his chronic troponin elevation). He was also found to have elevated liver enzymes. He was started on IV antibiotics and admitted for further monitoring and care. Infectious disease, pulmonary, gastroenterology, oncology, and cardiology were all involved in his care. Sputum sample ultimately revealed ESBL E. coli. On 02/23 he developed several episodes of dark tarry stools in his hemoglobin down trended. He received 1 unit of packed red blood cells, his hemoglobin was still 7 on the morning of 02/24 and he received 2 additional units of packed red blood cells. His aspirin and Eliquis were placed on hold. On the evening of 02/24 he had an episode of confusion. On 02/25 he was started on a clear liquid diet by GI. MRI of the brain was done which showed no evidence of metastatic disease but did show some white matter chronic small vessel ischemic changes. On 02/26 he had improvement in his breathing and was noted to be afebrile. Infectious disease is recommending 2 weeks of Invanz and patient subsequently had a midline placed. Patient weighs had elected medical management of his possible GI bleed with PPI therapy. 02/27- became confused overnight and pulled out midline having active hallucinatins 02/28 more lethargic and confused, checked stat ABG and ammonia levels both of which were normal Patient seen and examined at bedside. Feeling slightly more short of breath today, no chest pain, denies abdominal pain, no diarrhea Objective - Vital Signs Vital signs: Vital Signs Temp 97.9 F 02/28/19 07:00 Pulse 74 02/28/19 15:39 Resp 16 02/28/19 07:00 BP 143/61 02/28/19 07:00 Pulse Ox 91 L 02/28/19 07:00 Intake & Output 02/27/19 02/28/19 02/28/19 18:59 06:59 18:59 Intake Total 970 420 Output Total 350 Balance 970 -350 420 Intake: Intake, IV Titration 50 Amount Ertapenem 1 gm In Sodium 50 Chloride 0.9% 50 ml @ 100 mls/hr IVPB DAILY [facility] Rx #:[id number] Oral 920 420 Output: Urine 350 Other: Voiding Method Urinal # Voids 2 1 1 # Bowel Movements 1 - Exam General: non toxic, no distress, appears at stated age Derm: warm, dry Head: atraumatic, normocephalic, symmetric Eyes: EOMI, no lid lag, anicteric sclera Mouth: no lip lesion, mucus membranes moist Cardiovascular: S1S2 reg, no murmur, positive posterior tibial pulse bilateral, Lungs: wheeze bilateral, + minimal accessory muscle use Abdominal: soft, nontender to palpation, no guarding, no appreciable organomegaly Ext: no gross muscle atrophy, trace edema, no contractures Neuro: CN II-XI intact, no facial asymmetry, muscle strain 5 out of 5 in bilateral upper extremities, 4 out of 5 in bilateral lower extremities, finger to nose within normal limits, no dysdiadochokinesis, 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 Psych: Alert, awake and intermittently confused, flat affect - Labs CBC & Chem 7: 02/28/19 06:23 02/25/19 06:34 Labs: Abnormal Lab Results - Last 24 Hours (Table) 02/27/19 02/27/19 02/28/19 Range/Units 16:58 20:47 06:03 WBC (3.8-10.6) k/uL RBC (4.30-5.90) m/uL Hgb (13.0-17.5) gm/dL Hct (39.0-53.0) % MCHC (31.0-37.0) g/dL RDW (11.5-15.5) % Neutrophils # (Manual) (1.3-7.7) k/uL Metamyelocytes # (Man) (0) k/uL Myelocytes # (Manual) (0) k/uL ABG pO2 (83-108) mmHg ABG HCO3 (21-25) mmol/L ABG Total CO2 (19-24) mmol/L ABG O2 Saturation (94-97) % POC Glucose (mg/dL) 394 H 125 H 101 H (75-99) mg/dL 02/28/19 02/28/19 02/28/19 Range/Units 06:23 12:00 12:00 WBC 18.4 H (3.8-10.6) k/uL RBC 2.99 L (4.30-5.90) m/uL Hgb 8.1 L (13.0-17.5) gm/dL Hct 27.7 L (39.0-53.0) % MCHC 29.2 L (31.0-37.0) g/dL RDW 17.1 H (11.5-15.5) % Neutrophils # (Manual) 15.00 H (1.3-7.7) k/uL Metamyelocytes # (Man) 0.18 H (0) k/uL Myelocytes # (Manual) 0.37 H (0) k/uL ABG pO2 69 L (83-108) mmHg ABG HCO3 29 H (21-25) mmol/L ABG Total CO2 30 H (19-24) mmol/L ABG O2 Saturation 93.7 L (94-97) % POC Glucose (mg/dL) 172 H (75-99) mg/dL Microbiology - Last 24 Hours (Table) 02/22/19 12:06 Blood Culture - Final Blood No Growth after 144 hours Assessment and Plan Assessment: Klebsiella pneumonia, 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 - Invanz X 2 weeks per ID, has midline - Oncology recs appreciated: hope to start chemo in 1-2 weeks with carboplatin, etoposide, and atezolizumab, estensive stage - pulm hygeine Toxic metabolic encephalopathy -ABG and ammonia level normal -Check stat CMP -Reassess for possible worsening infections with repeat chest x-ray, blood cultures, and urinalysis -Safe and supportive environment -Change [place] to every 8 prn and Flexeril to nightly as needed Leukocytosis, worsening -Repeat chest x-ray, blood cultures, urinalysis and culture -Check CMP Acute blood loss anemia secondary to GI bleed -Hemoglobin stable -Continue off Eliquis on PPI -GI recommendations appreciated -Status post 3 units packed red blood cells COPD with exacerbation with chronic hypoxic respiratory failure - prednisone - duoneb - pulm hygeine - pulm recs Chronic atrial fibrillation -Off Eliquis secondary to GI bleed - digoxin, cardizem, lopressor Klebsiella urinary tract infection -Will be treated with Invanz Chronic: Coronary artery disease Hypertension Dyslipidemia Osteoarthritis BPH Irritable bowel syndrome Transfer to general medical floor DVT prophylaxis: SCDs to recent GI bleed Discussed with: Patient, daughter, nursing Anticipated discharge: 1-2 days, once insurance off for Invanz approved Anticipated discharge place: Home A total of 35 minutes was spent on the care of this complex patient more than 50% of the time was spent in counseling and care coordination.
[2019-02-28] MEDS: MORPHINE SULFATE 4 MG/ML SYRINGE IV PRN (16:17)
[2019-02-28 17:07] LABS: Glucose,Whole Blood 163 mg/dL (75-99)
[2019-02-28 17:11] LABS: ALT 127 U/L (21-72); AST 249 U/L (17-59); African American GFR (CKD) >90 (>60 ml/min/1.73 sqM); Albumin 2.9 g/dL (3.5-5.0); Alkaline Phosphatase 457 U/L (38-126); Anion Gap 7 mmol/L; Blood Urea Nitrogen 22 mg/dL (9-20); Calcium 10.2 mg/dL (8.4-10.2); Carbon Dioxide 28 mmol/L (22-30); Chloride 101 mmol/L (98-107); Glucose 159 mg/dL (74-99); Potassium 5.1 mmol/L (3.5-5.1); Sodium 136 mmol/L (137-145); Total Bilirubin 0.5 mg/dL (0.2-1.3); Total Protein 5.2 g/dL (6.3-8.2)
[2019-02-28] MEDS ORDERED: FLUCONAZOLE 100 MG TAB PO ONE (18:45)
--- NOTE | 2019-02-28 19:22 | XR ---
EXAMINATION TYPE: XR chest 2V DATE OF EXAM: 02/28/2019 COMPARISON: Prior chest x-ray 02/23/2019 HISTORY: Pneumonia, cough TECHNIQUE: Frontal and lateral views of the chest are obtained. FINDINGS: There is some improvement in aeration in the left lung, less volume loss noted. There is p ersistent prominence of the left hilar region however. No pneumothorax or pleural effusion. IMPRESSION: There is some improvement in aeration, left hilar mass.
[2019-02-28 20:58] LABS: Glucose,Whole Blood 259 mg/dL (75-99)
[2019-02-28] MEDS: TAMSULOSIN 0.4 MG CAP.ER.24H PO SCH (21:14)
--- NOTE | 2019-02-28 22:05 | PN ---
PROGRESS NOTE DATE OF SERVICE: 02/28/2019. REASON FOR FOLLOWUP: ESBL E coli pneumonia and UTI. INTERVAL HISTORY: The patient is currently afebrile. The patient has been breathing comfortably. However, mentioned significantly more confused lately. The patient denies having any chest pain, minimal cough not bringing sputum. No abdominal pain, no diarrhea. PHYSICAL EXAMINATION: Blood pressure 150/61 with a pulse of 74. Temperature 98. He is 91% 2 L nasal cannula. General description is an elderly male lying in bed in no distress. RESPIRATORY SYSTEM: Unlabored breathing with decreased breath sounds. No wheeze. HEART: S1, S2. Regular rate and rhythm. ABDOMEN: Soft, no tenderness. LAB: White count showing upward trend up to 18.4, BUN of 22, creatinine 0.97. Liver enzymes slightly elevated. DIAGNOSTIC IMPRESSION AND PLAN: Patient with ESBL E Klebsiella pneumonia along with in the urine, now did show evidence of worsening of the white count possibly oropharyngeal, will add oral Diflucan. Repeat a chest x-ray in the morning. Continue Invanz, possibly midline for outpatient antibiotic therapy. Continue supportive care. MMODL / IJN: [id number] /
[2019-03-01] MEDS: MORPHINE SULFATE 4 MG/ML SYRINGE IV PRN ×3 (06:23→21:27)
[2019-03-01] MEDS: DILTIAZEM ORAL 30 MG TAB PO SCH ×4 (06:25→21:28)
[2019-03-01 06:32] LABS: Glucose,Whole Blood 94 mg/dL (75-99)
[2019-03-01 07:32] LABS: INR 0.9 (<1.2); Prothrombin Time 10.2 sec (9.0-12.0)
[2019-03-01] MEDS: INSULIN ASPART (NovoLOG) 100 UNIT/ML VIAL SQ SCH ×4 (07:40→21:29)
[2019-03-01] MEDS: IPRATROPIUM-ALBUTEROL 3 ML NEB INHALATION SCH ×4 (07:49→18:56)
[2019-03-01] MEDS: DIGOXIN 250 MCG TAB PO SCH (08:24)
[2019-03-01] MEDS: GABAPENTIN 400 MG CAP PO SCH ×4 (08:24→21:28)
[2019-03-01] MEDS: METOPROLOL TARTRATE 50 MG TAB PO SCH ×3 (08:24→21:28)
[2019-03-01] MEDS: predniSONE 20 MG TAB PO SCH (08:24)
[2019-03-01] MEDS: PANTOPRAZOLE 40 MG/10 ML VIAL IVP SCH (08:24)
[2019-03-01] MEDS: ERTAPENEM 1 GM in SODIUM CHLORIDE 0.9% 50 ML IVPB SCH (10:09)
[2019-03-01 11:50] LABS: Glucose,Whole Blood 135 mg/dL (75-99)
[2019-03-01 12:33] LABS: Anisocytosis Slight; HCT 28.2 % (39.0-53.0); HGB 8.2 gm/dL (13.0-17.5); Hypochromasia Marked; MCH 27.8 pg (25.0-35.0); MCHC 29.2 g/dL (31.0-37.0); MCV 95.2 fL (80.0-100.0); Mean Platelet Volume 8.9; Platelet Count 278 k/uL (150-450); RBC 2.97 m/uL (4.30-5.90); RDW 17.3 % (11.5-15.5); WBC 18.3 k/uL (3.8-10.6)
--- NOTE | 2019-03-01 13:26 | P.PN ---
Subjective Progress Note Date: 03/01/19 Principal diagnosis: Lung Mass, HCAP lethargic Objective - Vital Signs Vital signs: Vital Signs Temp 98.0 F 03/01/19 07:00 Pulse 76 03/01/19 08:06 Resp 20 03/01/19 07:00 BP 153/82 03/01/19 07:00 Pulse Ox 93 L 03/01/19 07:00 Intake & Output 02/28/19 03/01/19 03/01/19 18:59 06:59 18:59 Intake Total 642 Output Total 700 Balance 642 -700 Weight 106 kg Intake: Oral 642 Output: Urine 700 Other: Voiding Method Urinal # Voids 800 2 # Bowel Movements 1 - Exam General appearance: no acute distress, obese - EENT Eyes: Present: anicteric sclerae, EOMI ENT: Present: hearing grossly normal - Respiratory Details: Respirations even and unlabored, chronic O2 - Cardiovascular Details: Skin warm and dry, radial pulse palpable 2+, trace extremity edema - Neurologic Neurologic:non focal - Musculoskeletal Musculoskeletal: Present: strength equal bilaterally - Labs CBC & Chem 7: 03/01/19 06:50 02/28/19 16:43 Labs: Abnormal Lab Results - Last 24 Hours (Table) 02/28/19 02/28/19 02/28/19 Range/Units 12:00 12:00 16:43 ABG pO2 69 L (83-108) mmHg ABG HCO3 29 H (21-25) mmol/L ABG Total CO2 30 H (19-24) mmol/L ABG O2 Saturation 93.7 L (94-97) % Sodium 136 L (137-145) mmol/L BUN 22 H (9-20) mg/dL Glucose 159 H (74-99) mg/dL POC Glucose (mg/dL) 172 H (75-99) mg/dL AST 249 H (17-59) U/L ALT 127 H (21-72) U/L Alkaline Phosphatase 457 H (38-126) U/L Total Protein 5.2 L (6.3-8.2) g/dL Albumin 2.9 L (3.5-5.0) g/dL 02/28/19 02/28/19 Range/Units 17:02 20:57 ABG pO2 (83-108) mmHg ABG HCO3 (21-25) mmol/L ABG Total CO2 (19-24) mmol/L ABG O2 Saturation (94-97) % Sodium (137-145) mmol/L BUN (9-20) mg/dL Glucose (74-99) mg/dL POC Glucose (mg/dL) 163 H 259 H (75-99) mg/dL AST (17-59) U/L ALT (21-72) U/L Alkaline Phosphatase (38-126) U/L Total Protein (6.3-8.2) g/dL Albumin (3.5-5.0) g/dL Microbiology - Last 24 Hours (Table) 02/22/19 12:06 Blood Culture - Final Blood No Growth after 144 hours Assessment and Plan Plan: Assessment and Recommendation: Externsive Stage Small cell lung cancer 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 Imaging sug gests that there are already numerous hepatic metastasis. Patient aware that small cell lung cancer is typically an aggressive malignancy. Treatment includes a combination of chemotherapy and immunotherapy with the treatment intent being palliative in nature, to prolonged survival and decrease symptoms of malignancy. He discussed that small cell lung cancer is not a cancer that is considered for surgical resection. Reviewed prognosis without treatment- people are averaging 3-4 months while with treatment, with including immunotherapy, people are now living up to one year. - Discussed completing staging work up with a brain MRI, nuclear medicine bone scan, CT of the abdomen and pelvis. Patient did verbalize understanding most of what was explained to him. - MRI brain negative mets - Bone scan neg mets - Evidence in liver of disease Transaminitis - Related to malignancy, question any underlying liver disease. Based on staging workup and follow-up on patient's liver function testing, patient could be experiencing of a visceral crisis. That situation would warrant urgent administration of chemotherapy. We'll follow closely, labs in the a.m., further recommendations to follow. Cancer-related pain - Patient is currently on oral [place], this is not providing any significant relief. Patient has parenteral morphine ordered already. We'll see how much medication the patient uses in the next 24 hours and convert to oral. - Meds for prevention of narcotic induced constipation. Normocytic normochromic anemia - Transfuse for hemoglobin less than 7. In studies have been ordered. [place]z spect that the anemia is related to malignancy/inflammation is in poor bone marrow response. We'll follow up in the a.m. on labs, supplements as appropriate, packed red blood cells for hemoglobin less than 7 unless patient is symptomatic. Klebsiella pneumonia, - Invanz X 2 weeks per ID, has midline - Oncology recs appreciated: hope to start chemo in 1-2 weeks with carboplatin, etoposide, and atezolizumab, estensive stage - pulm hygeine Toxic metabolic encephalopathy - worsening -ABG and ammonia level normal - Add lactulose as does not need to be elevated to present encephalopathy -Agree with repeat chest x-ray, blood cultures, and urinalysis Leukocytosis, worsening -Repeat chest x-ray, blood cultures, urinalysis and culture -Check CMP Acute blood loss anemia secondary to GI bleed -Recheck CBC Daily -Continue off Eliquis on PPI -GI recommendations appreciated COPD with exacerbation with chronic hypoxic respiratory failure - Per Primary and Pulmonary Atrial fibrillation - Was on treatment with Eliquis - Off Eliquis secondary to GI bleed Continue supportive care, will discuss treatment initiation with Dr. Harris.
[2019-03-01] MEDS: HYDROcodone/APAP 10-325MG 1 EACH TAB PO PRN (14:09)
[2019-03-01 14:25] VITALS: BMI 31.6
--- NOTE | 2019-03-01 14:36 | P.PN ---
Subjective Progress Note Date: 03/01/19 The patient is a 68-year-old male with a PMH of COPD and chronic hypoxic respiratory failure on continuous home oxygen, CAD, CVA, atrial fibrillation on Eliquis, and diastolic CHF with history of multiple recent hospitalizations presented to the ED with complaints of shortness of breath. Of note, the jacquie ent was recently diagnosed with small cell lung cancer via a bronchoscopy performed for left hilar mass. During this presentation, the patient underwent an extensive evaluation in the ED with chest CT showing progression of disease with the mass now encasing the left hilum and cutting off the left upper lobe bronchus, along with increasing diffuse mediastinal adenopathy and findings of new hepatic metastatic disease. The patient was noted to have lactic acidosis at 3.7, with hemoglobin 7.3, and WBC count 12.1. The patient was started on IV abxs and was given 1 U of pRBCs after he developed black tarry stools with Hgb trended downwards. He subsequently received an additional 2 U and his ant icoagulants and antiplatelet medications were held. The patient also had episodes of confusion after which an MRI of brain was ordered which showed no evidence of metastatic disease. The patient had a midline placed in anticipation for 2 weeks of Invanz as recommended by infectious disease. The patient was seen and examined at the bedside. He notes continued mild SOB though denied any additional complaints including fever, chills, chest pain, nausea, vomiting, or dizziness. Objective - Vital Signs Vital signs: Vital Signs Temp 98.0 F 03/01/19 07:00 Pulse 80 03/01/19 11:50 Resp 20 03/01/19 07:00 BP 153/82 03/01/19 07:00 Pulse Ox 93 L 03/01/19 07:00 Intake & Output 02/28/19 03/01/19 03/01/19 18:59 06:59 18:59 Intake Total 642 110 Output Total 700 Balance 642 -700 110 Weight 106 kg Intake: Intake, IV Titration 50 Amount Ertapenem 1 gm In Sodium 50 Chloride 0.9% 50 ml @ 100 mls/hr IVPB DAILY [facility] Rx #:[id number] Oral 642 60 Output: Urine 700 Other: Voiding Method Urinal # Voids 800 2 1 # Bowel Movements 1 - Exam General: Non-toxic, in no acute distress, appears stated age, obese HEENT: NC/AT, anicteric sclerae, moist conjunctiva, no lid-lag, PERRLA Cardiovascular: S1/S2 wnl, no murmurs, rubs, or gallops Lungs: Decreased air entry charline with expiratory wheezing, normal respiratory effort, no accessory muscle use Abdominal: Soft, non-tender, non-distended, no guarding, rebound, or rigidity Skin: Warm, dry Extremities: No edema or contractures Psychiatric: Alert and oriented to person, place and time, appropriate affect Neuro: CN II-XII grossly intact, Strength 5/5 in UEs charline and 4/5 in charline LEs, Speech intact, Sensation to light touch grossly intact throughout - Labs CBC & Chem 7: 03/01/19 06:50 02/28/19 16:43 Labs: Abnormal Lab Results - Last 24 Hours (Table) 02/28/19 02/28/19 02/28/19 Range/Units 16:43 17:02 20:57 WBC (3.8-10.6) k/uL RBC (4.30-5.90) m/uL Hgb (13.0-17.5) gm/dL Hct (39.0-53.0) % MCHC (31.0-37.0) g/dL RDW (11.5-15.5) % Sodium 136 L (137-145) mmol/L BUN 22 H (9-20) mg/dL Glucose 159 H (74-99) mg/dL POC Glucose (mg/dL) 163 H 259 H (75-99) mg/dL AST 249 H (17-59) U/L ALT 127 H (21-72) U/L Alkaline Phosphatase 457 H (38-126) U/L Total Protein 5.2 L (6.3-8.2) g/dL Albumin 2.9 L (3.5-5.0) g/dL 03/01/19 03/01/19 Range/Units 06:50 11:49 WBC 18.3 H (3.8-10.6) k/uL RBC 2.97 L (4.30-5.90) m/uL Hgb 8.2 L (13.0-17.5) gm/dL Hct 28.2 L (39.0-53.0) % MCHC 29.2 L (31.0-37.0) g/dL RDW 17.3 H (11.5-15.5) % Sodium (137-145) mmol/L BUN (9-20) mg/dL Glucose (74-99) mg/dL POC Glucose (mg/dL) 135 H (75-99) mg/dL AST (17-59) U/L ALT (21-72) U/L Alkaline Phosphatase (38-126) U/L Total Protein (6.3-8.2) g/dL Albumin (3.5-5.0) g/dL Microbiology - Last 24 Hours (Table) 02/22/19 12:06 Blood Culture - Final Blood No Growth after 144 hours Assessment and Plan Plan: Klebsiella post-obstructive pneumonia secondary to small cell lung-ca -Planned for Invanz x 2 weeks as per ID recs -Oncology recs appreciated, planned to start chemotherapy in 1-2 weeks Toxic metabolic encephalopathy, improved -Continue with [place] every 8 hourly -Reviewed workup Leukocytosis, stable -ID recs appreciated -C/w IV Abxs for now -C/w monitoring of CBC Acute blood loss anemia -Hgb stable -S/p 3 U of pRBCs -Continue to hold Eliquis -GI recs appreciated -Monitor CBC Acute COPD exacerbation in setting of chronic hypoxic resp failure -C/w Prednisone, Duonebs Chronic A-fib -Continue to hold Eliquis Deconditioning -Likely DC to Rehab -Awaiting PT recs
[2019-03-01 15:03] LABS: Band Neutrophils % 2 %; Lymphocytes # (M) 2.38 k/uL (1.0-4.8); Metamyelocytes # (M) 0.55 k/uL (0); Metamyelocytes % 3 %; Monocytes # (M) 0.73 k/uL (0-1.0); Myelocytes # (M) 0.18 k/uL (0); Myelocytes % 1 %; Neutrophils % (M) 79 %; Nucleated Red Blood Cells 0 /100 WBC (0-0); Total Cells Counted 200
[2019-03-01 15:04] LABS: Poikilocytosis (M) Present; Polychromasia Present
[2019-03-01] MEDS: FLUCONAZOLE 100 MG TAB PO SCH (15:38)
[2019-03-01 16:56] LABS: Glucose,Whole Blood 170 mg/dL (75-99)
--- NOTE | 2019-03-01 18:26 | PN ---
PROGRESS NOTE DATE OF SERVICE: 03/01/2019. REASON FOR FOLLOWUP: 1. Pneumonia. 2. Leukocytosis. INTERVAL HISTORY: The patient is currently afebrile. The patient has been breathing comfortably. The patient did have some cough but not bringing up any sputum. No nausea or vomiting. No abdominal pain. No diarrhea. PHYSICAL EXAMINATION: Blood pressure 126/57 with a pulse of 78. Temperature 98. He is 99% on 2 L nasal cannula. General description is an elderly male lying in bed in no distress. Respiratory system: Unlabored breathing with decreased breath sounds at the bases. No wheeze. HEART S1, S2. Regular rate and rhythm. ABDOMEN: Soft, no tenderness. EXTREMITIES: No edema of the feet. LABS: White count still elevated at 18,000. Chest x-ray though did show some improvement. DIAGNOSTIC IMPRESSION AND PLAN: 1. Patient with ESBL Klebsiella positive sputum culture with a component of pneumonia. The patient is currently covered with to continue for at least another 10 days to finished a course of therapy. 2. Patient with persistent elevated white count. Possible oropharyngeal candidiasis. Diflucan added yesterday to be continued for about a day. 3. Continue supportive care. MMODL / IJN: [id number] /
[2019-03-01 20:56] LABS: Glucose,Whole Blood 137 mg/dL (75-99)
[2019-03-01] MEDS: PANTOPRAZOLE 40 MG TABLET PO SCH (21:28)
[2019-03-01] MEDS: TAMSULOSIN 0.4 MG CAP.ER.24H PO SCH (21:28)
[2019-03-02] MEDS: DILTIAZEM ORAL 30 MG TAB PO SCH ×4 (05:34→23:48)
[2019-03-02 05:54] LABS: Glucose,Whole Blood 145 mg/dL (75-99)
[2019-03-02] MEDS: INSULIN ASPART (NovoLOG) 100 UNIT/ML VIAL SQ SCH ×4 (06:17→21:19)
[2019-03-02] MEDS: METOPROLOL TARTRATE 50 MG TAB PO SCH ×3 (06:17→23:48)
[2019-03-02 06:53] LABS: Anisocytosis Slight; Basophils % (A) 0 %; Eosinophils # (A) 0.3 k/uL (0-0.7); Eosinophils % (A) 2 %; HCT 27.9 % (39.0-53.0); HGB 8.2 gm/dL (13.0-17.5); Hypochromasia Marked; Lymphocytes # (A) 1.6 k/uL (1.0-4.8); Lymphocytes % (A) 13 %; MCH 27.4 pg (25.0-35.0); MCHC 29.4 g/dL (31.0-37.0); MCV 93.3 fL (80.0-100.0); Mean Platelet Volume 7.6; Monocytes # (A) 0.5 k/uL (0-1.0); Monocytes % (A) 4 %; Neutrophils # (A) 10.2 k/uL (1.3-7.7); Neutrophils % (A) 80 %; Platelet Count 252 k/uL (150-450); RBC 2.99 m/uL (4.30-5.90); RDW 17.2 % (11.5-15.5); WBC 12.8 k/uL (3.8-10.6)
[2019-03-02] MEDS: IPRATROPIUM-ALBUTEROL 3 ML NEB INHALATION SCH ×4 (07:25→20:43)
[2019-03-02] MEDS: predniSONE 20 MG TAB PO SCH (10:15)
[2019-03-02] MEDS: DIGOXIN 250 MCG TAB PO SCH (10:15)
[2019-03-02] MEDS: FLUCONAZOLE 100 MG TAB PO SCH (10:15)
[2019-03-02] MEDS: GABAPENTIN 400 MG CAP PO SCH ×4 (10:15→22:16)
[2019-03-02] MEDS: PANTOPRAZOLE 40 MG TABLET PO SCH ×2 (10:15→21:19)
[2019-03-02] MEDS: ERTAPENEM 1 GM in SODIUM CHLORIDE 0.9% 50 ML IVPB SCH (10:21)
[2019-03-02 11:24] LABS: Glucose,Whole Blood 122 mg/dL (75-99)
--- NOTE | 2019-03-02 13:03 | P.PN ---
Subjective Progress Note Date: 03/02/19 The patient is a 68-year-old male with a PMH of COPD and chronic hypoxic respiratory failure on continuous home oxygen, CAD, CVA, atrial fibrillation on Eliquis, and diastolic CHF with history of multiple recent hospitalizations presented to the ED with complaints of shortness of breath. Of note, the jacquie ent was recently diagnosed with small cell lung cancer via a bronchoscopy performed for left hilar mass. During this presentation, the patient underwent an extensive evaluation in the ED with chest CT showing progression of disease with the mass now encasing the left hilum and cutting off the left upper lobe bronchus, along with increasing diffuse mediastinal adenopathy and findings of new hepatic metastatic disease. The patient was noted to have lactic acidosis at 3.7, with hemoglobin 7.3, and WBC count 12.1. The patient was started on IV abxs and was given 1 U of pRBCs after he developed black tarry stools with Hgb trended downwards. He subsequently received an additional 2 U and his ant icoagulants and antiplatelet medications were held. The patient also had episodes of confusion after which an MRI of brain was ordered which showed no evidence of metastatic disease. The patient had a midline placed in anticipation for 2 weeks of Invanz as recommended by infectious disease. Dr Harris discussed the case with the family and recommended that the patient would benefit from initiation of chemotherapy while in-patient. The patient was seen and examined at the bedside on 03/02. The patient continues to have intermittent episodes of confusion and some shortness of breath. He however denied ay additional complaints. Denied chest pain, fever, chills, cough, nausea, vomiting, dizziness, dysuria, or abdominal pain. Objective - Vital Signs Vital signs: Vital Signs Temp 98.3 F 03/02/19 11:41 Pulse 66 03/02/19 11:41 Resp 16 03/02/19 11:41 BP 152/57 03/02/19 11:41 Pulse Ox 91 L 03/02/19 11:41 Intake & Output 03/01/19 03/02/19 03/02/19 18:59 06:59 18:59 Intake Total 110 480 Output Total 300 Balance 110 -300 480 Weight 106 kg 105.7 kg Intake: Intake, IV Titration 50 Amount Ertapenem 1 gm In Sodium 50 Chloride 0.9% 50 ml @ 100 mls/hr IVPB DAILY [facility] Rx #:[id number] Oral 60 480 Output: Urine 300 Other: Voiding Method Urinal # Voids 1 2 - Exam General: Non-toxic, in no acute distress, appears stated age, obese HEENT: NC/AT, anicteric sclerae, moist conjunctiva, no lid-lag, PERRLA Cardiovascular: S1/S2 wnl, no murmurs, rubs, or gallops Lungs: Decreased air entry charline with expiratory wheezing, normal respiratory effort, no accessory muscle use Abdominal: Soft, non-tender, non-distended, no guarding, rebound, or rigidity Skin: Warm, dry Extremities: No edema or contractures Psychiatric: Alert and oriented to person and place, oriented to year, not to month, appropriate affect Neuro: CN II-XII grossly intact, Strength 5/5 in UEs charline and 4/5 in charline LEs, Speech intact, Sensation to light touch grossly intact throughout - Labs CBC & Chem 7: 03/02/19 06:25 02/28/19 16:43 Labs: Abnormal Lab Results - Last 24 Hours (Table) 03/01/19 03/01/19 03/01/19 Range/Units 06:50 16:54 20:55 WBC 18.3 H (3.8-10.6) k/uL RBC 2.97 L (4.30-5.90) m/uL Hgb 8.2 L (13.0-17.5) gm/dL Hct 28.2 L (39.0-53.0) % MCHC 29.2 L (31.0-37.0) g/dL RDW 17.3 H (11.5-15.5) % Neutrophils # (1.3-7.7) k/uL Neutrophils # (Manual) 14.80 H (1.3-7.7) k/uL Metamyelocytes # (Man) 0.55 H (0) k/uL Myelocytes # (Manual) 0.18 H (0) k/uL POC Glucose (mg/dL) 170 H 137 H (75-99) mg/dL 03/02/19 03/02/19 03/02/19 Range/Units 05:52 06:25 11:06 WBC 12.8 H (3.8-10.6) k/uL RBC 2.99 L (4.30-5.90) m/uL Hgb 8.2 L (13.0-17.5) gm/dL Hct 27.9 L (39.0-53.0) % MCHC 29.4 L (31.0-37.0) g/dL RDW 17.2 H (11.5-15.5) % Neutrophils # 10.2 H (1.3-7.7) k/uL Neutrophils # (Manual) (1.3-7.7) k/uL Metamyelocytes # (Man) (0) k/uL Myelocytes # (Manual) (0) k/uL POC Glucose (mg/dL) 145 H 122 H (75-99) mg/dL Microbiology - Last 24 Hours (Table) 02/28/19 16:44 Blood Culture - Preliminary Blood No Growth after 24 hours 02/28/19 16:43 Blood Culture - Preliminary Blood No Growth after 24 hours Assessment and Plan Plan: Klebsiella post-obstructive pneumonia secondary to small cell lung-ca -Planned for Invanz x 2 weeks as per ID recs -Oncology recs appreciated -- will be started on Chemo while inpatient Toxic metabolic encephalopathy -Continue with [place] every 8 hourly -Will repeat Ammonia levels in setting of significant metastatic disease to liver Deranged LFTs -Likely due to metastatic disease burden -Will follow CMP -Recheck ammonia levels Leukocytosis, improved -ID recs appreciated -C/w IV Abxs for now -C/w monitoring of CBC Acute blood loss anemia -Hgb stable -S/p 3 U of pRBCs -Continue to hold Eliquis -GI recs appreciated -Monitor CBC COPD, acute exacerbation resolved -C/w Prednisone, Duonebs Chronic A-fib -Continue to hold Eliquis
[2019-03-02] MEDS: DEXAMETHASONE SOD PHOSPHATE 10 MG/ML 1 ML VIAL IV SCH (16:47)
[2019-03-02] MEDS: ONDANSETRON 16 MG in SODIUM CHLORIDE 0.9% 50 ML IVPB SCH (16:47)
[2019-03-02] MEDS: FAMOTIDINE 20 MG/2 ML VIAL IVP SCH (16:48)
[2019-03-02] MEDS ORDERED: CARBOPLATIN IV ONE (17:00)
[2019-03-02] MEDS ORDERED: SODIUM CHLORIDE 0.9% IV ONE (17:00)
[2019-03-02 17:28] LABS: Glucose,Whole Blood 218 mg/dL (75-99)
[2019-03-02] MEDS: ETOPOSIDE 180 MG in SODIUM CHLORIDE 0.9% 500 ML 500 ML IV SCH (17:38)
--- NOTE | 2019-03-02 18:42 | PN ---
PROGRESS NOTE DATE OF SERVICE: 03/02/2019 REASON FOR FOLLOWUP: ESBL Klebsiella UTI and pneumonia. INTERVAL HISTORY: The patient is currently afebrile. The patient has been breathing more comfortably. He denies having any chest pain. He continues to have some cough, not bringing up any sputum. No nausea, no vomiting, no abdominal pain and no diarrhea. PHYSICAL EXAMINATION: Blood pressure 152/57 with a pulse of 66, temperature 98.3. He is 91% on room air. General description is an elderly male lying in bed in no distress. RESPIRATORY SYSTEM: Unlabored breathing with decreased breath sounds at the base. HEART: S1, S2. Regular rate and rhythm. ABDOMEN: Soft. No tenderness. EXTREMITIES: No edema of the feet. LABS: Hemoglobin is 8.2, white count 12.8. DIAGNOSTIC IMPRESSION AND PLAN: Patient admitted to hospital. Patient with metastatic lung cancer in this patient who did have an enlarging left hilar mass with left lower lobe consolidation with possible component of post-obstructive pneumonia. Sputum has been ESBL Klebsiella. The patient is currently covered with [email or web address]. He will continue to finish a 2-week course of therapy. Family at the bedside. Their questions were answered. MMODL / IJN: [id number] /
[2019-03-02] MEDS: HYDROcodone/APAP 10-325MG 1 EACH TAB PO PRN (18:43)
[2019-03-02 20:31] LABS: Glucose,Whole Blood 161 mg/dL (75-99)
[2019-03-02] MEDS: TAMSULOSIN 0.4 MG CAP.ER.24H PO SCH (21:19)
--- NOTE | 2019-03-03 01:57 | P.PN ---
Subjective Progress Note Date: 03/02/19 The patient continues to have significant generalized weakness, and poor appetite. He remains confused intermittently, and comprehension and recall appear to be significantly diminished. He continues to complain of significant back pain. Objective - Vital Signs Vital signs: Vital Signs Temp 98.2 F 03/02/19 21:23 Pulse 60 03/02/19 21:23 Resp 18 03/02/19 22:39 BP 122/57 03/02/19 21:23 Pulse Ox 89 L 03/02/19 21:23 Intake & Output 03/02/19 03/02/19 03/03/19 06:59 18:59 06:59 Intake Total 970 610 Output Total 300 250 Balance -300 970 360 Weight 105.7 kg Intake: Intake, IV Titration 50 250 Amount CARBOplatin 450 mg 250 CARBOplatin 50 mg In Sodium Chloride 0.9% 250 ml @ 600 mls/hr IV ONCE@ 1700 ONE Rx#:[id number] Ertapenem 1 gm In Sodium 50 Chloride 0.9% 50 ml @ 100 mls/hr IVPB DAILY [facility] Rx #:[id number] Oral 920 360 Output: Urine 300 250 Other: Voiding Method Urinal Urinal Urinal # Voids 2 - Constitutional General appearance: Present: no acute distress - EENT Eyes: Present: EOMI ENT: Present: hearing grossly normal, normal oropharynx - Respiratory Respiratory: bilateral: diminished - Cardiovascular Rhythm: regular Heart sounds: normal: S1, S2 - Gastrointestinal General gastrointestinal: Present: normal bowel sounds, soft - Integumentary Integumentary: Present: normal - Neurologic Neurologic: Present: CNII-XII intact - Musculoskeletal Musculoskeletal: Present: generalized weakness, strength equal bilaterally - Psychiatric Psychiatric Comment(s): Lethargic, quite sleepy, but arousable. He is at least intermittently confused. Recall and comprehension are quite diminished. He did not recall talking to me about his case on 03/01 - Labs CBC & Chem 7: 03/02/19 06:25 02/28/19 16:43 Labs: Abnormal Lab Results - Last 24 Hours (Table) 03/02/19 03/02/19 03/02/19 Range/Units 05:52 06:25 11:06 WBC 12.8 H (3.8-10.6) k/uL RBC 2.99 L (4.30-5.90) m/uL Hgb 8.2 L (13.0-17.5) gm/dL Hct 27.9 L (39.0-53.0) % MCHC 29.4 L (31.0-37.0) g/dL RDW 17.2 H (11.5-15.5) % Neutrophils # 10.2 H (1.3-7.7) k/uL POC Glucose (mg/dL) 145 H 122 H (75-99) mg/dL 03/02/19 03/02/19 Range/Units 17:26 20:30 WBC (3.8-10.6) k/uL RBC (4.30-5.90) m/uL Hgb (13.0-17.5) gm/dL Hct (39.0-53.0) % MCHC (31.0-37.0) g/dL RDW (11.5-15.5) % Neutrophils # (1.3-7.7) k/uL POC Glucose (mg/dL) 218 H 161 H (75-99) mg/dL Microbiology - Last 24 Hours (Table) 02/28/19 16:44 Blood Culture - Preliminary Blood No Growth after 48 hours 02/28/19 16:43 Blood Culture - Preliminary Blood No Growth after 48 hours Assessment and Plan (1) Small cell lung cancer Narrative/Plan: The diagnosis, and implications were discussed in detail with the patient, and his was at the bedside. The was obviously the main target of the discussion, given the patient's current mental status. He was advised to the patient appears to have stage IV disease, with liver involvement and baseline. In addition liver disease appears to be progressing rapidly, with very quick increase in liver enzymes noted. The rapid increase in liver enzymes and the change in the patient's mental status, with MRI brain negative for metastasis, is indicative of rapidly progressing liver insufficiency. In this situation aggressive combination chemotherapy with [employer]-16 and carboplatin would be recommended to try to retard and was disease progression and salvage liver function. However, they were advised that treatment would not be curative given the advanced age. He objective would be prolongation of life and palliation of symptoms. In addition the patient could potentially be at increased risk of side effects given his liver insufficiency Prognosis with and without treatment, and the option of comfort care was also discussed. The patient's confirmed that he had stated that he would like to at least try active treatment. The patient is currently quite weak and the is sure that she cannot manage him at home. Therefore ECF placement is being considered. However the patient will not be able to receive chemotherapy and ECF. Defer if it does desire active treatment, given the liver situation, he'll be started on chemotherapy in patient. Orders will be written and given to the pharmacy to start the 60 and carboplatin today. The patient will be closely monitored with treatment Current Visit: Yes Status: Acute Priority: High Code(s): C34.90 - MALIGNANT NEOPLASM OF UNSP PART OF UNSP BRONCHUS OR LUNG SNOMED Code(s): 627213044 (2) Transaminitis Narrative/Plan: Due to rapid progression of metastatic cancer in the liver. There is no evidence of biliary obstruction, which could be amenable to immediate reversal. The plan therefore is to start chemotherapy as noted above. The patient's was advised that the diffuse liver disease, liver numbers are likely to worsen with chemotherapy, before any improvement occurs. The chemotherapy does carry a risk of precipitating overt liver failure. She expressed understanding of the risks, and again confirmed that she would like to proceed with active treatment. Current Visit: Yes Status: Acute Priority: High Code(s): R74.0 - NONSPEC ELEV OF LEVELS OF TRANSAMNS & LACTIC ACID DEHYDRGNSE SNOMED Code(s): 198196488
[2019-03-03] MEDS: DILTIAZEM ORAL 30 MG TAB PO SCH ×4 (06:03→23:38)
[2019-03-03 07:04] LABS: Glucose,Whole Blood 170 mg/dL (75-99)
[2019-03-03] MEDS: FLUCONAZOLE 100 MG TAB PO SCH (08:06)
[2019-03-03] MEDS: IPRATROPIUM-ALBUTEROL 3 ML NEB INHALATION SCH ×4 (08:06→20:29)
[2019-03-03] MEDS: INSULIN ASPART (NovoLOG) 100 UNIT/ML VIAL SQ SCH ×4 (08:06→21:17)
[2019-03-03] MEDS: METOPROLOL TARTRATE 50 MG TAB PO SCH ×3 (08:06→23:38)
[2019-03-03] MEDS: ERTAPENEM 1 GM in SODIUM CHLORIDE 0.9% 50 ML IVPB SCH (08:06)
[2019-03-03] MEDS: PANTOPRAZOLE 40 MG TABLET PO SCH ×2 (08:07→21:17)
[2019-03-03] MEDS: GABAPENTIN 400 MG CAP PO SCH ×4 (08:07→21:17)
[2019-03-03] MEDS: DIGOXIN 250 MCG TAB PO SCH (08:07)
[2019-03-03] MEDS: predniSONE 20 MG TAB PO SCH (08:07)
[2019-03-03 09:04] LABS: Anisocytosis Slight; Basophils % (A) 0 %; Eosinophils % (A) 0 %; HCT 27.7 % (39.0-53.0); Hypochromasia Marked; Lymphocytes # (A) 0.6 k/uL (1.0-4.8); Lymphocytes % (A) 4 %; MCH 27.4 pg (25.0-35.0); MCHC 29.1 g/dL (31.0-37.0); MCV 94.3 fL (80.0-100.0); Mean Platelet Volume 7.3; Monocytes # (A) 0.3 k/uL (0-1.0); Monocytes % (A) 2 %; Neutrophils # (A) 14.5 k/uL (1.3-7.7); Neutrophils % (A) 94 %; Platelet Count 277 k/uL (150-450); RBC 2.93 m/uL (4.30-5.90); RDW 17.2 % (11.5-15.5); WBC 15.5 k/uL (3.8-10.6)
[2019-03-03 09:22] LABS: Potassium 5.4 mmol/L (3.5-5.1)
[2019-03-03 09:23] LABS: Magnesium 2.3 mg/dL (1.6-2.3); Total Bilirubin 0.7 mg/dL (0.2-1.3); Total Protein 5.5 g/dL (6.3-8.2)
[2019-03-03 11:17] LABS: Glucose,Whole Blood 148 mg/dL (75-99)
[2019-03-03] MEDS ORDERED: SODIUM POLYSTYRENE SULFONATE 15 GM/60 ML BOTTLE PO STA (11:22)
[2019-03-03] MEDS: SODIUM CHLORIDE 0.9% 1,000 ML IV SCH (13:00)
--- NOTE | 2019-03-03 13:02 | P.NPCON ---
History of Present Illness - Reason for Consult acute renal failure - History of Present Illness Reason for consultation: Acute kidney injury and hyperkalemia History of present illness: Patient is a 68-year-old maleSeen in renal consultation for acute kidney injury and hyperkalemia. Patient presented to the hospital on 02/22/2019 which shortness of breath. Patient was recently diagnosed with stage IV lung cancer and was started on chemotherapy yesterday. He denies fever or chills. He denies any history of kidney disease. Denies regular use of nonsteroidals. He has been voiding. No hematuria or dysuria. No vomiting or diarrhea. Currently being treated for Klebsiella UTI as well as pneumonia. Patient's potassium level is 5.4 and creatinine is 1.22. The patient's UA from February 02 of this year revealed no proteinuria. No history of diabetes. Patient did undergo a chest CT on February 22 which revealed no evidence of PE. No evidence of metastatic disease to the brain. However he does have metastatic disease to the liver. Echocardiogram from this admission revealed diastolic CHF with mild to moderate tricuspid regurgitation and moderate pulmonary hypertension. He does have edema in his lower extremities. No evidence of hypotension. Vital signs are stable. General: The patient appeared well nourished and normally developed. HEENT: Head exam is unremarkable. Neck is without jugular venous distension. LUNGS: Breath sounds decreased. HEART: Rate and Rhythm are regular. First and second heart sounds normal. No murmurs, rubs or gallops. ABDOMEN: Abdominal exam reveals normal bowel sounds. Non-tender and non- distended. No evidence of peritonitis. EXTREMITITES: 1+ edema. Past Medical History Past Medical History: Coronary Artery Disease (CAD), Cancer, Chest Pain / Angina, COPD, CVA/TIA, GERD/Reflux, Hyperlipidemia, Hypertension, Osteoarthritis (OA), Prostate Disorder Additional Past Medical History / Comment(s): COPD, coronary artery disease, CVA/TIA, acid reflux, hyperlipidemia, hypertension, osteoarthritis, BPH, vertigo, coronary artery disease, hiatal hernia, IBS, small cell lung cancer, diverticulosis with previous history of diverticulitis History of Any Multi-Drug Resistant Organisms: C-DIFF, ESBL Date of last positivie culture/infection: 02/23/19 ESBL Klebsiella; 01/12/19 C.diff MDRO Source:: Sputum & Urine-ESBL, Stool-C.diff Past Surgical History: Adenoidectomy, Back Surgery, Heart Catheterization, Hernia Repair, Joint Replacement, Orthopedic Surgery, Tonsillectomy Additional Past Surgical History / Comment(s): L knee replacement, back surgery x2-failed fusion and 2 rods in lower back, L/R cataract surgery, bilat. rib removal (cervical), carpal tunnel R wrist, colonoscopy, L elbow surgery, abdominal hernia repair, 3 R inguinal hernia repairs, L inguinal hernia repair, rectal cystectomy.pain pump(ms) implanted removed 11/06/2018 Past Anesthesia/Blood Transfusion Reactions: Previous Problems w/ Anesthesia Additional Past Anesthesia/Blood Transfusion Reaction / Comment(s): With first surgery became belligerent when waking up. Past Psychological History: No Psychological Hx Reported Additional Psychological History / Comment(s): Pt resides with his spouse. He uses a cane to ambulate. has nebulizer He drives. 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 Is no longer smoking. No animals in the home Smoking Status: Former smoker Past Alcohol Use History: None Reported Additional Past Alcohol Use History / Comment(s): Pt started smoking in 1962 and quit in May of 2018. Past Drug Use History: None Reported - Past Family History Mother Family Medical History: No Reported History Additional Family Medical History / Comment(s): Mother was healthy and lived to be 88 or 89yrs old. Father Family Medical History: Cancer Additional Family Medical History / Comment(s): Father of lung cancer in his early 70's. Medications and Allergies Home Medications Medication Instructions Recorded Confirmed Type Aspirin 81 mg PO DAILY 11/21/18 02/22/19 History Atorvastatin [Lipitor] 80 mg PO HS 11/21/18 02/22/19 History Cyclobenzaprine [Flexeril] 10 mg PO HS 11/30/18 02/22/19 History Apixaban [Eliquis] 5 mg PO BID #20 tab 12/03/18 02/22/19 Rx Digoxin 250 mcg PO DAILY #10 tablet 12/03/18 02/22/19 Rx Diltiazem HCl 90 mg PO Q6H #40 tablet 12/03/18 02/22/19 Rx Tamsulosin HCl [Flomax] 0.4 mg PO HS #20 capsule 12/03/18 02/22/19 Rx Tiotropium 18 Mcg/Puff [Spiriva] 1 puff INHALATION RT-DAILY 12/06/18 02/22/19 History Metoprolol Tartrate [Lopressor] 100 mg PO Q8H 01/11/19 02/22/19 History predniSONE 20 mg PO QAM 01/11/19 02/22/19 History Gabapentin [Neurontin] 400 mg PO QID #120 cap 01/16/19 02/22/19 Rx HYDROcodone/APAP 10-325MG [[place] 1 tab PO Q6H PRN #20 tab 01/16/19 02/22/19 Rx 10-325] Omeprazole [PriLOSEC] 20 mg PO QAM 02/02/19 02/22/19 History L.acidoph,Paracasei, B.lactis 1 cap PO DAILY 02/16/19 02/22/19 History [Probiotic] Multivitamins, Thera [Multivitamin 1 tab PO DAILY 02/16/19 02/22/19 History (formulary)] Allergies Allergy/AdvReac Type Severity Reaction Status Date / Time montelukast sodium AdvReac Itching Verified 02/22/19 11:21 [From [facility]] Physical Exam Vitals: Vital Signs Temp Pulse Pulse Resp BP Pulse Ox 03/03/19 12:15 64 03/03/19 12:03 68 03/03/19 08:18 70 03/03/19 08:09 66 03/03/19 05:51 97.8 F 85 22 163/68 91 L 03/02/19 22:39 18 03/02/19 21:23 98.2 F 60 18 122/57 89 L 03/02/19 20:55 60 03/02/19 20:43 60 20 03/02/19 16:48 84 03/02/19 16:36 80 24 Intake and Output 03/02/19 03/03/19 03/03/19 22:59 06:59 14:59 Intake Total 610 50 Output Total 250 Balance 360 50 Intake: Intake, IV Titration 250 50 Amount CARBOplatin 450 mg 250 CARBOplatin 50 mg In Sodium Chloride 0.9% 250 ml @ 600 mls/hr IV ONCE@ 1700 ONE Rx#:[id number] Ertapenem 1 gm In Sodium 50 Chloride 0.9% 50 ml @ 100 mls/hr IVPB DAILY [facility] Rx #:[id number] Oral 360 Output: Urine 250 Other: Voiding Method Urinal # Voids 3 # Bowel Movements 3 Weight 100.3 kg Results - Lab Results Most recent lab results ABG pH 7.43 (7.35-7.45) 02/28/19 12:00 ABG pCO2 44 mmHg (35-45) 02/28/19 12:00 ABG pO2 69 mmHg (83-108) L 02/28/19 12:00 ABG HCO3 29 mmol/L (21-25) H 02/28/19 12:00 ABG O2 Saturation 93.7 % (94-97) L 02/28/19 12:00 Calcium 10.0 mg/dL (8.4-10.2) 03/03/19 08:41 Magnesium 2.3 mg/dL (1.6-2.3) 03/03/19 08:41 03/03/19 08:41 03/03/19 08:41 Assessment and Plan Plan: Assessment: 1. Acute kidney injury mostly prerenal secondary to infection, poor oral intake as well as chemotherapy. Patient did receive a dose of carboplatin which can be nephrotoxic. No proteinuria on UA from February 02 of this year. No evidence of hydronephrosis noted on CAT scan. Rule out urinary retention. 2. Stage IV lung cancer with liver metastasis. Oncology following. Started on chemotherapy on March 02. 3. History of A. fib. 4. Diastolic CHF with mild to moderate tricuspid regurgitation and moderate pulmonary hypertension. 5. Mild hyperkalemia secondary to acute kidney injury. 6. Acute blood loss anemia status post blood transfusion. Hemoglobin 8.0 today. 7. Klebsiella UTI and pneumonia maintained on antibiotics. Infectious disease following. Plan: Patient was started on normal saline at 75 mL an hour today which can be continued for the next 24 hours. However need to monitor patient's volume status closely. Monitor bladder scans to rule out underlying urinary retention. Check iron studies. Patient scheduled to receive a dose of Kayexalate today. Repeat potassium level this evening. Add ensure with meals. Avoid nephrotoxins. Check digoxin level. Thank you for the consultation. I will continue to follow the patient with you during his hospital stay.
--- NOTE | 2019-03-03 13:23 | PN ---
PROGRESS NOTE DATE OF SERVICE: 03/03/2019 REASON FOR FOLLOWUP: ESBL Klebsiella pneumonia. INTERVAL HISTORY: The patient is currently afebrile. Patient has been breathing slightly comfortable. He did have some cough with sputum. No nausea, vomiting. No abdominal pain, no diarrhea. PHYSICAL EXAMINATION: On examination, blood pressure is 163/68 with a pulse of 85, temperature 97.8. He is 91% on 3 L nasal cannula. General description is an elderly male up in the bed in no distress. RESPIRATORY SYSTEM: Unlabored breathing with decreased breath sounds with significant wheeze. HEART: S1, S2. Regular rate and rhythm. ABDOMEN: Soft, no tenderness. LABS: Hemoglobin 8 with white count 15.5. BUN of 28, creatinine is 1.22. Blood culture has been negative. DIAGNOSTIC IMPRESSION AND PLAN: Patient with metastatic lung cancer with possible component of left lower lobe postobstructive pneumonia. Sputum with ESBL Klebsiella. Patient currently on Invanz. Continue to finish a 2-week course of therapy. Monitor clinical course closely. Continue with supportive care. MMDLL / DANIAN: [id number] /
--- NOTE | 2019-03-03 15:21 | P.PN ---
Subjective Progress Note Date: 03/03/19 The patient is a 68-year-old male with a PMH of COPD and chronic hypoxic respiratory failure on continuous home oxygen, CAD, CVA, atrial fibrillation on Eliquis, and diastolic CHF with history of multiple recent hospitalizations presented to the ED with complaints of shortness of breath. Of note, the jacquie ent was recently diagnosed with small cell lung cancer via a bronchoscopy performed for left hilar mass. During this presentation, the patient underwent an extensive evaluation in the ED with chest CT showing progression of disease with the mass now encasing the left hilum and cutting off the left upper lobe bronchus, along with increasing diffuse mediastinal adenopathy and findings of new hepatic metastatic disease. The patient was noted to have lactic acidosis at 3.7, with hemoglobin 7.3, and WBC count 12.1. The patient was started on IV abxs and was given 1 U of pRBCs after he developed black tarry stools with Hgb trended downwards. He subsequently received an additional 2 U and his ant icoagulants and antiplatelet medications were held. The patient also had episodes of confusion after which an MRI of brain was ordered which showed no evidence of metastatic disease. The patient had a midline placed in anticipation for 2 weeks of Invanz as recommended by infectious disease. Dr Harris discussed the case with the family and recommended that the patient would benefit from initiation of chemotherapy while in-patient. The patient received his first dose of Etoposide and Carboplatin on 03/02/19. The patient was seen and examined at the bedside on 03/03. The patient's mentation deteriorated further and he is more lethargic today. Patient slept the majority of the day and is confused when he awakens. He answered some questions appropriately and stated that he doesn't feel well though denied having any pain. Objective - Vital Signs Vital signs: Vital Signs Temp 97.8 F 03/03/19 05:51 Pulse 64 03/03/19 12:15 Resp 22 03/03/19 05:51 BP 163/68 03/03/19 05:51 Pulse Ox 91 L 03/03/19 05:51 Intake & Output 03/02/19 03/03/19 03/03/19 18:59 06:59 18:59 Intake Total 970 610 50 Output Total 250 Balance 970 360 50 Weight 100.3 kg Intake: Intake, IV Titration 50 250 50 Amount CARBOplatin 450 mg 250 CARBOplatin 50 mg In Sodium Chloride 0.9% 250 ml @ 600 mls/hr IV ONCE@ 1700 ONE Rx#:[id number] Ertapenem 1 gm In Sodium 50 50 Chloride 0.9% 50 ml @ 100 mls/hr IVPB DAILY [facility] Rx #:[id number] Oral 920 360 Output: Urine 250 Other: Voiding Method Urinal Urinal # Voids 3 # Bowel Movements 3 - Exam General: Ill appearing M in no acute distress, appears stated age, obese HEENT: NC/AT, anicteric sclerae, PERRLA Cardiovascular: S1/S2 wnl, no murmurs, rubs, or gallops Lungs: Decreased air entry charline with expiratory wheezing, normal respiratory effort, no accessory muscle use Abdominal: Soft, non-tender, non-distended, no guarding, rebound, or rigidity Skin: Warm, dry Extremities: Trace charline LE edema Psychiatric: Oriented only to self, not oriented to place or time Neuro: CN II-XII grossly intact, no focal deficits noted - Labs CBC & Chem 7: 03/03/19 08:41 03/03/19 08:41 Labs: Abnormal Lab Results - Last 24 Hours (Table) 03/02/19 03/02/19 03/03/19 Range/Units 17:26 20:30 07:03 WBC (3.8-10.6) k/uL RBC (4.30-5.90) m/uL Hgb (13.0-17.5) gm/dL Hct (39.0-53.0) % MCHC (31.0-37.0) g/dL RDW (11.5-15.5) % Neutrophils # (1.3-7.7) k/uL Lymphocytes # (1.0-4.8) k/uL Potassium (3.5-5.1) mmol/L BUN (9-20) mg/dL Glucose (74-99) mg/dL POC Glucose (mg/dL) 218 H 161 H 170 H (75-99) mg/dL AST (17-59) U/L ALT (21-72) U/L Alkaline Phosphatase (38-126) U/L Total Protein (6.3-8.2) g/dL Albumin (3.5-5.0) g/dL 07/03/03/19 03/03/19 Range/Units 08:41 08:41 11:15 WBC 15.5 H (3.8-10.6) k/uL RBC 2.93 L (4.30-5.90) m/uL Hgb 8.0 L (13.0-17.5) gm/dL Hct 27.7 L (39.0-53.0) % MCHC 29.1 L (31.0-37.0) g/dL RDW 17.2 H (11.5-15.5) % Neutrophils # 14.5 H (1.3-7.7) k/uL Lymphocytes # 0.6 L (1.0-4.8) k/uL Potassium 5.4 H (3.5-5.1) mmol/L BUN 28 H (9-20) mg/dL Glucose 185 H (74-99) mg/dL POC Glucose (mg/dL) 148 H (75-99) mg/dL AST 241 H (17-59) U/L ALT 127 H (21-72) U/L Alkaline Phosphatase 512 H (38-126) U/L Total Protein 5.5 L (6.3-8.2) g/dL Albumin 3.0 L (3.5-5.0) g/dL Microbiology - Last 24 Hours (Table) 02/28/19 16:44 Blood Culture - Preliminary Blood No Growth after 48 hours 02/28/19 16:43 Blood Culture - Preliminary Blood No Growth after 48 hours Assessment and Plan Plan: Klebsiella post-obstructive pneumonia secondary to small cell lung-ca -C/w Invanz to complete 2 week course as per ID -Oncology recs appreciated -- currently on 2nd day of Carboplatin and Etoposide chemotherapy Toxic metabolic encephalopathy -Continue with Jena every 8 hourly -Likely due to metastatic liver disease and high disease burden of lung malignancy Deranged LFTs -Likely due to metastatic disease burden -Monitor CMP Hyperkalemia -S/p Kayexalate -Monitor BMP Leukocytosis, likely due to malignancy in setting of pneumonia -ID recs appreciated -C/w IV Abxs for now -C/w monitoring of CBC Acute blood loss anemia -Hgb stable -S/p 3 U of pRBCs -Continue to hold Eliquis -GI recs appreciated -Monitor CBC COPD, acute exacerbation resolved -C/w Prednisone, Duonebs Chronic A-fib -Continue to hold Eliquis
[2019-03-03] MEDS: FAMOTIDINE 20 MG/2 ML VIAL IVP SCH (16:42)
[2019-03-03] MEDS: DEXAMETHASONE SOD PHOSPHATE 10 MG/ML 1 ML VIAL IV SCH (16:42)
[2019-03-03] MEDS: ONDANSETRON 16 MG in SODIUM CHLORIDE 0.9% 50 ML IVPB SCH (16:42)
[2019-03-03] MEDS: ETOPOSIDE 180 MG in SODIUM CHLORIDE 0.9% 500 ML 500 ML IV SCH (16:45)
[2019-03-03 17:28] LABS: Glucose,Whole Blood 219 mg/dL (75-99)
[2019-03-03 19:53] LABS: Glucose,Whole Blood 257 mg/dL (75-99)
[2019-03-03 20:49] LABS: Iron Saturation 33.86 (15.00-50.00)
[2019-03-03] MEDS: TAMSULOSIN 0.4 MG CAP.ER.24H PO SCH (21:17)
--- NOTE | 2019-03-04 00:42 | P.PN ---
Subjective Progress Note Date: 03/03/19 The patient continues to be quite confused today. He stated that he was at a gas station and needed to get out of here. He did not appear to be in any acute distress. He denied any nausea/vomiting/mouth sores. He states that the pain in his abdomen appears to be somewhat better. Objective - Vital Signs Vital signs: Vital Signs Temp 98.3 F 03/03/19 20:05 Pulse 64 03/03/19 23:30 Resp 20 03/03/19 21:10 BP 136/58 03/03/19 23:30 Pulse Ox 96 03/03/19 21:10 Intake & Output 03/03/19 03/03/19 03/04/19 06:59 18:59 06:59 Intake Total 610 50 540 Output Total 250 400 Balance 360 50 140 Weight 100.3 kg Intake: Intake, IV Titration 250 50 300 Amount CARBOplatin 450 mg 250 CARBOplatin 50 mg In Sodium Chloride 0.9% 250 ml @ 600 mls/hr IV ONCE@ 1700 ONE Rx#:[id number] Ertapenem 1 gm In Sodium 50 Chloride 0.9% 50 ml @ 100 mls/hr IVPB DAILY [facility] Rx #:[id number] Sodium Chloride 0.9% 1, 300 000 ml @ 75 mls/hr IV . [id number] [facility] Rx#:[id number] Oral 360 240 Output: Urine 250 200 Post Void Residual 200 Other: Voiding Method Urinal Urinal Diaper Incontinent # Voids 3 2 # Bowel Movements 3 - Constitutional General appearance: Present: no acute distress - EENT Eyes: Present: EOMI ENT: Present: hearing grossly normal, normal oropharynx - Respiratory Respiratory: bilateral: CTA - Cardiovascular Rhythm: regular Heart sounds: normal: S1, S2 - Gastrointestinal General gastrointestinal: Present: distended, hepatomegaly, soft - Integumentary Integumentary: Present: normal - Neurologic Neurologic: Present: CNII-XII intact - Musculoskeletal Musculoskeletal: Present: generalized weakness, strength equal bilaterally - Psychiatric Psychiatric Comment(s): confused - Labs CBC & Chem 7: 03/03/19 08:41 03/03/19 20:23 Labs: Abnormal Lab Results - Last 24 Hours (Table) 03/03/19 03/03/19 03/03/19 Range/Units 07:03 08:41 08:41 WBC 15.5 H (3.8-10.6) k/uL RBC 2.93 L (4.30-5.90) m/uL Hgb 8.0 L (13.0-17.5) gm/dL Hct 27.7 L (39.0-53.0) % MCHC 29.1 L (31.0-37.0) g/dL RDW 17.2 H (11.5-15.5) % Neutrophils # 14.5 H (1.3-7.7) k/uL Lymphocytes # 0.6 L (1.0-4.8) k/uL Potassium 5.4 H (3.5-5.1) mmol/L BUN 28 H (9-20) mg/dL Glucose 185 H (74-99) mg/dL POC Glucose (mg/dL) 170 H (75-99) mg/dL AST 241 H (17-59) U/L ALT 127 H (21-72) U/L Alkaline Phosphatase 512 H (38-126) U/L Total Protein 5.5 L (6.3-8.2) g/dL Albumin 3.0 L (3.5-5.0) g/dL 03/03/19 03/03/19 03/03/19 Range/Units 11:15 17:26 19:50 WBC (3.8-10.6) k/uL RBC (4.30-5.90) m/uL Hgb (13.0-17.5) gm/dL Hct (39.0-53.0) % MCHC (31.0-37.0) g/dL RDW (11.5-15.5) % Neutrophils # (1.3-7.7) k/uL Lymphocytes # (1.0-4.8) k/uL Potassium (3.5-5.1) mmol/L BUN (9-20) mg/dL Glucose (74-99) mg/dL POC Glucose (mg/dL) 148 H 219 H 257 H (75-99) mg/dL AST (17-59) U/L ALT (21-72) U/L Alkaline Phosphatase (38-126) U/L Total Protein (6.3-8.2) g/dL Albumin (3.5-5.0) g/dL Microbiology - Last 24 Hours (Table) 02/28/19 16:44 Blood Culture - Preliminary Blood No Growth after 72 hours 02/28/19 16:43 Blood Culture - Preliminary Blood No Growth after 72 hours Assessment and Plan (1) Small cell lung cancer Narrative/Plan: The patient has a new diagnosis, with metastatic disease including marked liver involvement. He was started on chemotherapy on an urgent basis, due to rapidly progressive disease in the liver and consultants for impending organ failure. He is status post day 1 of cycle 1 of [employer]-16 and carboplatin. So far subjective tolerance appears to be reasonable. Continue to monitor with clinical exams, and labs. Current Visit: Yes Status: Acute Priority: High Code(s): C34.90 - MALIGNANT NEOPLASM OF UNSP PART OF UNSP BRONCHUS OR LUNG SNOMED Code(s): 619995585 (2) Transaminitis Narrative/Plan: Due to rapidly progressive metastatic malignancy in the liver. The patient has been started on chemotherapy. It has been discussed with the family that even if the chemotherapy is effective, liver enzymes may worsen before starting to get better. Monitor labs. Continue treatment according to the admitting service for hepatic encephalopathy Current Visit: Yes Status: Acute Priority: High Code(s): R74.0 - NONSPEC ELEV OF LEVELS OF TRANSAMNS & LACTIC ACID DEHYDRGNSE SNOMED Code(s): 954125874
[2019-03-04] MEDS: SODIUM CHLORIDE 0.9% 1,000 ML IV SCH (03:18)
[2019-03-04] MEDS: HYDROcodone/APAP 10-325MG 1 EACH TAB PO PRN (05:14)
[2019-03-04] MEDS: DILTIAZEM ORAL 30 MG TAB PO SCH (05:39)
[2019-03-04 05:47] VITALS: BP 145/67; RESP 16; TEMP 97.6
[2019-03-04 07:05] LABS: Glucose,Whole Blood 119 mg/dL (75-99)
[2019-03-04] MEDS: IPRATROPIUM-ALBUTEROL 3 ML NEB INHALATION SCH ×2 (07:20→11:07)
[2019-03-04 07:34] VITALS: PULSE 68
[2019-03-04 08:21] LABS: Calcium 9.6 mg/dL (8.4-10.2); Digoxin 1.5 ng/mL; Magnesium 2.5 mg/dL (1.6-2.3)
[2019-03-04] MEDS: INSULIN ASPART (NovoLOG) 100 UNIT/ML VIAL SQ SCH (08:51)
[2019-03-04] MEDS: PANTOPRAZOLE 40 MG TABLET PO SCH (10:14)
[2019-03-04] MEDS: predniSONE 20 MG TAB PO SCH (10:14)
[2019-03-04] MEDS: METOPROLOL TARTRATE 50 MG TAB PO SCH (10:14)
[2019-03-04] MEDS: ERTAPENEM 1 GM in SODIUM CHLORIDE 0.9% 50 ML IVPB SCH (10:14)
[2019-03-04] MEDS: GABAPENTIN 400 MG CAP PO SCH (10:15)
[2019-03-04] MEDS: FLUCONAZOLE 100 MG TAB PO SCH (10:15)
[2019-03-04] MEDS ORDERED: FUROSEMIDE 10 MG/ML 4 ML VIAL IV STA (10:35)
--- NOTE | 2019-03-04 10:36 | P.PN ---
Subjective Patient is seen in follow-up for acute kidney injury and hyperkalemia. Currently resting in bed. Patient was started on chemotherapy on March 02. Patient has stage IV lung cancer with liver metastasis. He has been voiding. Creatinine 1.31 today. No vomiting or diarrhea. Patient does complain of being more short of breath today. Vital signs are stable. General: The patient appeared well nourished and normally developed. HEENT: Head exam is unremarkable. Neck is without jugular venous distension. LUNGS: Lungs are clear to auscultation and percussion. Breath sounds decreased. HEART: Rate and Rhythm are regular. First and second heart sounds normal. No murmurs, rubs or gallops. ABDOMEN: Abdominal exam reveals normal bowel sounds. Non-tender and non- distended. No evidence of peritonitis. EXTREMITITES: 1+ edema. Objective - Vital Signs Vital signs: Vital Signs Temp 97.6 F 03/04/19 05:45 Pulse 68 03/04/19 07:33 Resp 16 03/04/19 05:45 BP 145/67 03/04/19 05:45 Pulse Ox 92 L 03/04/19 05:45 Intake & Output 03/03/19 03/04/19 03/04/19 18:59 06:59 18:59 Intake Total 50 1610 Output Total 1200 Balance 50 410 Intake: Intake, IV Titration 50 300 Amount Ertapenem 1 gm In Sodium 50 Chloride 0.9% 50 ml @ 100 mls/hr IVPB DAILY [facility] Rx #:[id number] Sodium Chloride 0.9% 1, 300 000 ml @ 75 mls/hr IV . [id number] [facility] Rx#:[id number] Oral 1310 Output: Urine 1000 Post Void Residual 200 Other: Voiding Method Urinal Diaper Incontinent # Voids 1 # Bowel Movements 1 - Labs CBC & Chem 7: 03/03/19 08:41 03/04/19 07:28 Labs: Abnormal Lab Results - Last 24 Hours (Table) 03/03/19 03/03/19 03/03/19 Range/Units 11:15 17:26 19:50 Carbon Dioxide (22-30) mmol/L BUN (9-20) mg/dL Creatinine (0.66-1.25) mg/dL POC Glucose (mg/dL) 148 H 219 H 257 H (75-99) mg/dL Magnesium (1.6-2.3) mg/dL 03/04/19 03/04/19 Range/Units 06:59 07:28 Carbon Dioxide 31 H (22-30) mmol/L BUN 32 H (9-20) mg/dL Creatinine 1.31 H (0.66-1.25) mg/dL POC Glucose (mg/dL) 119 H (75-99) mg/dL Magnesium 2.5 H (1.6-2.3) mg/dL Microbiology - Last 24 Hours (Table) 02/28/19 16:44 Blood Culture - Preliminary Blood No Growth after 72 hours 02/28/19 16:43 Blood Culture - Preliminary Blood No Growth after 72 hours Assessment and Plan Plan: Assessment: 1. Acute kidney injury mostly prerenal secondary to infection, poor oral intake as well as chemotherapy. Patient did receive a dose of carboplatin which can be nephrotoxic. No proteinuria on UA from February 02 of this year. No evidence of hydronephrosis noted on CAT scan. No evidence of urinary retention. 2. Stage IV lung cancer with liver metastasis. Oncology following. Started on chemotherapy on March 02. 3. History of A. fib. 4. Diastolic CHF with mild to moderate tricuspid regurgitation and moderate pulmonary hypertension. 5. Mild hyperkalemia secondary to acute kidney injury. 6. Acute blood loss anemia status post blood transfusion. Hemoglobin 8.0 as of yesterday. Iron replete. 7. Klebsiella UTI and pneumonia maintained on antibiotics. Infectious disease following. 8. Lower extremity edema. Plan: Hep-Lock IV fluids. Maintain ensure with meals. Avoid nephrotoxins. Lasix 40 mg IV once today. Repeat chest x-ray.
--- NOTE | 2019-03-04 11:34 | P.DS ---
Providers Date of admission: 02/22/19 15:55 Expected date of discharge: 03/04/19 Attending physician: Keshia Mccarthy DO Consults: 02/22/19 15:57 Consult Physician Stat Consulting Provider: Paco Helton Consult Reason/Comments: NSTEMI, ekg changes, lung mass Do you want consulting provider notified?: Yes Consult Physician Stat Consulting Provider: Avery Bravo Consult Reason/Comments: Lung mass, pneumonia Do you want consulting provider notified?: Yes 02/22/19 15:59 Consult Physician Stat Consulting Provider: Baljit Harris Consult Reason/Comments: Lung mass Do you want consulting provider notified?: Yes 02/26/19 12:35 Consult Physician Routine Consulting Provider: Nicholas Singleton Consult Reason/Comments: ESBL organism Do you want consulting provider notified?: Yes 03/03/19 12:20 Consult Physician Routine Consulting Provider: Kush Sotelo Consult Reason/Comments: hyperkalemia, JUANY on carbo Do you want consulting provider notified?: Yes Primary care physician: [facility] Course: The patient is a 68-year-old male with a PMH of COPD and chronic hypoxic respiratory failure on continuous home oxygen, CAD, CVA, atrial fibrillation on Eliquis, and diastolic CHF with history of multiple recent hospitalizations presented to the ED with complaints of shortness of breath. Of note, the patient was recently diagnosed with small cell lung cancer via a bronchoscopy performed for left hilar mass. During this presentation, the patient underwent an extensive evaluation in the ED with chest CT showing progression of disease with the mass now encasing the left hilum and cutting off the left upper lobe bronchus, along with increasing diffuse mediastinal adenopathy and findings of new hepatic metastatic disease. The patient was noted to have lactic acidosis at 3.7, with hemoglobin 7.3, and WBC count 12.1. The patient was started on IV abxs and was given 1 U of pRBCs after he developed black tarry stools with Hgb trended downwards. He subsequently received an additional 2 U and his anticoagulants and antiplatelet medications were held. The patient also had episodes of confusion after which an MRI of brain was ordered which showed no evidence of metastatic disease. The patient had a midline placed in anticipation for 2 weeks of Invanz as recommended by infectious disease for ESBL Klebsiella in the Sputum. Dr Harris discussed the case with the family and recommended that the patient would benefit from initiation of chemotherapy while in-patient. The patient received his first dose of Etoposide and Carboplatin on 03/02/19. Discussed the patient's goals of care with the family on 03/03/19 with the , daughter, and sister present at the bedside. The family expressed their concerns regarding the life-expectancy of the patient in light of his already high disease burden along with this new aggressive malignancy. The patient's mental status, in the meantime, continued to worsen. A consult for hospice was placed and the family decided to have the patient be discharged to home with home-hospice. The family stated that they do not wish for the patient to receive any further doses of chemotherapy, nor do they wish for him to complete his course of IV abxs. The patient was seen and examined at the day of discharge, with his at the bedside. The patient was eager to be discharged to home and stated his agreement with the plan and that he doesn't wish for his last days to be in the hospital. Physical Examination General: Ill appearing M in no acute distress, appears stated age, obese HEENT: NC/AT, anicteric sclerae, PERRLA Cardiovascular: S1/S2 wnl, no murmurs, rubs, or gallops Lungs: Decreased air entry charline with expiratory wheezing, normal respiratory effort, no accessory muscle use Abdominal: Soft, non-tender, non-distended, no guarding, rebound, or rigidity Skin: Warm, dry Extremities: Trace charline LE edema Psychiatric: Oriented to person and place. Knows of the year and month, but not the date. Neuro: CN II-XII grossly intact, no focal deficits noted Discharge diagnosis: Klebsiella post obstructive pneumonia secondary to small cell lung cancer; metastatic small cell lung cancer; toxic metabolic encephalopathy; abnormal LFTs; leukocytosis; resolved: Hyperkalemia; acute blood loss anemia; acute COPD exacerbation; chronic atrophic relation A total of 60 minutes of time were spent preparing this complex discharge summary. Patient Condition at Discharge: Stable Plan - Discharge Summary Discharge Rx Participant: No New Discharge Prescriptions: Continue Cyclobenzaprine [Flexeril] 10 mg PO HS Digoxin 250 mcg PO DAILY #10 tablet Diltiazem HCl 90 mg PO Q6H #40 tablet Tamsulosin HCl [Flomax] 0.4 mg PO HS #20 capsule Tiotropium 18 Mcg/Puff [Spiriva] 1 puff INHALATION RT-DAILY Metoprolol Tartrate [Lopressor] 100 mg PO Q8H predniSONE 20 mg PO QAM Gabapentin [Neurontin] 400 mg PO QID #120 cap Omeprazole [PriLOSEC] 20 mg PO QAM HYDROcodone/APAP 10-325MG [Garwood 10-325] 1 tab PO Q6H PRN #20 tab PRN Reason: Pain Discontinued Aspirin 81 mg PO DAILY Atorvastatin [Lipitor] 80 mg PO HS Apixaban [Eliquis] 5 mg PO BID #20 tab Multivitamins, Thera [Multivitamin (formulary)] 1 tab PO DAILY L.acidoph,Paracasei, B.lactis [Probiotic] 1 cap PO DAILY Discharge Medication List Cyclobenzaprine [Flexeril] 10 mg PO HS 11/30/18 [History] Digoxin 250 mcg PO DAILY #10 tablet 12/03/18 [Rx] Diltiazem HCl 90 mg PO Q6H #40 tablet 12/03/18 [Rx] Tamsulosin HCl [Flomax] 0.4 mg PO HS #20 capsule 12/03/18 [Rx] Tiotropium 18 Mcg/Puff [Spiriva] 1 puff INHALATION RT-DAILY 12/06/18 [History] Metoprolol Tartrate [Lopressor] 100 mg PO Q8H 01/11/19 [History] predniSONE 20 mg PO QAM 01/11/19 [History] Gabapentin [Neurontin] 400 mg PO QID #120 cap 01/16/19 [Rx] Omeprazole [PriLOSEC] 20 mg PO QAM 02/02/19 [History] HYDROcodone/APAP 10-325MG [Garwood 10-325] 1 tab PO Q6H PRN #20 tab 03/04/19 [Rx] Follow up Appointment(s)/Referral(s): [facility], [NON-STAFF] - David Suazo MD [Primary Care Provider] - 1-2 days Patient Instructions/Handouts: Hydrocodone/Acetaminophen (By mouth), Hospice (DC) Discharge Disposition: HOME WITH HOSPICE
--- NOTE | 2019-03-04 12:23 | PN ---
PROGRESS NOTE DATE OF SERVICE: 03/04/2019 REASON FOR FOLLOWUP: ESBL E coli left-sided postobstructive pneumonia. INTERVAL HISTORY: The patient is currently afebrile. The patient has been breathing slightly comfortably. Denies having any chest pain. Occasional cough. No nausea. No vomiting. No abdominal pain and no diarrhea. PHYSICAL EXAMINATION: Blood pressure 145/67, pulse 69, temperature 97.6. He is 92% on 3 L nasal cannula. General description is an elderly male up in the bed in no distress. RESPIRATORY SYSTEM: Unlabored breathing with decreased breath sounds at the base. No wheeze. HEART: S1, S2. Regular rate and rhythm. ABDOMEN: Soft. No tenderness. LABS: BUN of 32, creatinine 1.31. DIAGNOSTIC IMPRESSION AND PLAN: Patient with extended-spectrum beta-lactamase Escherichia coli left lower lobe pneumonia, possibly postobstructive. The patient is currently on Invanz; that was supposed to be continued for another week to finish a course of therapy. However, the patient decided to go to hospice. Antibiotic can be safely discontinued. His was at the bedside. Questions were answered. MMODL / IJN: [id number] /
== END 2019-03-04 11:34 | disposition hospice, home (50) | DRG 177 ==
LOC: EC 10:54 → 3SCARD 15:55 → 4SSUR 03-02 10:56 → 3NMEDONC 03-02 14:12
PROVIDERS: ADMIT Internal Medicine; ATTEND Internal Medicine
PROC: 05HD33Z Insertion of Infusion Device into Right Cephalic Vein, Percutaneous Approach (ICD-10-PCS; 2019-02-23)
PROC: 30233N1 Transfusion of Nonautologous Red Blood Cells into Peripheral Vein, Percutaneous Approach (ICD-10-PCS; principal; 2019-02-23 13:50)
PROC: 05HF33Z Insertion of Infusion Device into Left Cephalic Vein, Percutaneous Approach (ICD-10-PCS; 2019-03-01 09:20)
DX: J15.0 Pneumonia due to Klebsiella pneumoniae (principal); G92 Toxic encephalopathy; J44.0 Chronic obstructive pulmonary disease with (acute) lower respiratory infection; J44.1 Chronic obstructive pulmonary disease with (acute) exacerbation; J96.11 Chronic respiratory failure with hypoxia; C34.02 Malignant neoplasm of left main bronchus; C78.7 Secondary malignant neoplasm of liver and intrahepatic bile duct; D62 Acute posthemorrhagic anemia; E27.40 Unspecified adrenocortical insufficiency; E87.1 Hypo-osmolality and hyponatremia; E87.2 Acidosis; I50.32 Chronic diastolic (congestive) heart failure; N17.9 Acute kidney failure, unspecified; N39.0 Urinary tract infection, site not specified; K92.1 Melena; Z87.891 Personal history of nicotine dependence; D63.8 Anemia in other chronic diseases classified elsewhere; E27.8 Other specified disorders of adrenal gland; E66.9 Obesity, unspecified; Z68.30 Body mass index [BMI] 30.0-30.9, adult; E78.5 Hyperlipidemia, unspecified; E87.5 Hyperkalemia; G89.3 Neoplasm related pain (acute) (chronic); I07.1 Rheumatic tricuspid insufficiency; I11.0 Hypertensive heart disease with heart failure; R74.8 Abnormal levels of other serum enzymes; I25.10 Atherosclerotic heart disease of native coronary artery without angina pectoris; I27.20 Pulmonary hypertension, unspecified; I48.2 Chronic atrial fibrillation; Z79.01 Long term (current) use of anticoagulants; Z86.73 Personal history of transient ischemic attack (TIA), and cerebral infarction without residual deficits; K21.9 Gastro-esophageal reflux disease without esophagitis; K58.9 Irritable bowel syndrome, unspecified; K72.90 Hepatic failure, unspecified without coma; M16.12 Unilateral primary osteoarthritis, left hip; N40.0 Benign prostatic hyperplasia without lower urinary tract symptoms; Y95 Nosocomial condition; Z16.12 Extended spectrum beta lactamase (ESBL) resistance; Z66 Do not resuscitate; Z51.5 Encounter for palliative care; Z79.82 Long term (current) use of aspirin; Z79.899 Other long term (current) drug therapy; Z80.1 Family history of malignant neoplasm of trachea, bronchus and lung; Z85.118 Personal history of other malignant neoplasm of bronchus and lung; Z87.01 Personal history of pneumonia (recurrent); Z96.652 Presence of left artificial knee joint; Z98.41 Cataract extraction status, right eye; Z99.81 Dependence on supplemental oxygen; Z98.42 Cataract extraction status, left eye; Z74.01 Bed confinement status; R74.0 Nonspecific elevation of levels of transaminase and lactic acid dehydrogenase [LDH]; K59.03 Drug induced constipation; T40.605A Adverse effect of unspecified narcotics, initial encounter; Z98.1 Arthrodesis status; R42 Dizziness and giddiness; Z87.440 Personal history of urinary (tract) infections
CPT/HCPCS: 36410; 36415; 36600; 70553; 71046; 71275; 74177; 76937; 78306; 80048; 80053; 80162; 81001; 82140; 82272; 82550; 82607; 82728; 82747; 82805; 83540; 83550; 83605; 83735; 83880; 84132; 84484; 85025; 85610; 85730; 86850; 86900; 86901; 86920; 87040; 87070; 87077; 87086; 87186; 87205; 87449; 93005; 93306; 94640; 94760; 96361; 96365; 96366; 96368; 96375; 96376; 99285